=== PATIENT | female | born 1945 | race Caucasian/White ===

== ENCOUNTER → 2017-03-04 | Outpatient (CLI) | payer OTHER ==
[~2017-03-04] MED LIST: ALPR0.25 PO; ATEN-173 PO; ATOR-22 PO; CYAN100020 PO; ESTR1CRE PV; FEXO1TAB45 PO; GABA1CAP4 PO; HYDR25TA4 PO; LOSA1TAB PO; MAGN1TAB41 PO; MOVE FREE ULTRA PO; MULT-506 PO; NF656 TD; POLYSOL4 OP; POTA10TA PO; PSYL1.7W PO; SNG10 PO; SPIR25TA89 PO; SYN50 PO; VITAMIN B PO; VOLTAREN GEL TOP; WARF4TAB43 PO; [UNRECOGNIZED DRUG - OTHER] PO
--- NOTE | 2017-03-05 05:57 | PAP/PSG TECHNICIAN REPORT ---
[facility] Building Rental Superintendent Polysomnogram Report Study name: None Report date: 03/05/2017 Study date: 03/04/2017 Referring Physician: Juanita Umanzor M.D. Name: HARVINDER AAKASH Dewey Interpreting Physician: Keena Umanzor M.D. Date of : 1945 Building Rental Superintendent: Zahra Garcia, PSGT. Sex: Female Age: 71 StudyType: PSG Weight: 168 lbs Height: 71 years, Height 5' 2" Neck Circum:13.5 inches BMI: 30.72 Medications: See list of 25 medications listed in chart. Patient History 71YR. OLD FEMALE IN ROOM 7, PRESENTS TONIGHT FOR A DIAGNOSTIC SPLIT NIGHT STUDY. PT. STATES THAT SHE HAS PTSS. SHE WAS MALLED BY A DOG IN 2013 AND NOW HAS ALOT OF ANIEXTY WHEN SHE HAS TO GO TO BED, ALL SHE SEES IS A DOG ATTACKING HER. HER STATES THAT SHE SNORES AND SEE PAUSES IN BREATHING WHILE SLEEPING.ESS=3, NECK=13.5 INCHES. Parameters Monitored NPSG: E1-M2, E2-M1, Fp1-M2, Fp2-M1, F3-M2, F4-M2, F4-M1, C3-M2, C4-M2, C4-M1, O1-M2, O2-M2, O2-M1, T3-M2, T4-M1, P3-M2, P4-M1, CHIN1, CHIN2, HR, EKG, Legs, PFLOW, SNOR, FLOW, CFLOW, Tidal Volume, THOR, ABDO, SpO2, PLTH, CPRESS, ETCO2 Wave, ETCO2, pH Sleep Architecture Sleep Stages Time at Lights Off 10:42:24 PM STAGES Time (min.) TST (%) Time at Lights On 5:35:24 AM Wake 115.5 -- Total Recording Time (TRT) 414.00 min. N1 25.0 8 Total Sleep Period (TSP) 378.0 min. N2 238.0 80 Total Sleep Time (TST) 297.5min. N3 0.0 0 Awake Time 115.5 min. REM 34.5 12 Wake after Sleep Onset 80.5 min. Sleep Efficiency (SE) 72 % Sleep Onset Latency (SORIN) 35.0 min. Number of Stage 1 Shifts None Awakenings 11 Stage Changes 45 Number of REM periods 4 REM 34.5 12 REM Latency 125.0 min. NREM 263.0 88 Body Position Analysis Supine Right Left Side Prone Vertical Total Sleep Time (min.) 173.7 56.5 85.2 141.67 0.0 0.0 Total Sleep Time (%) 52% 19% 29% 48 0% N/A% Total Sleep Time REM (min.) 8.1 0.0 26.4 None 0.0 0.0 Total Sleep Time NREM (min.) 147.7 56.5 58.8 None 0.0 0.0 Intermittent Wake (min.) 17.8 93.0 4.6 None 0.0 0.0 Total Sleep Period (%) 46% None None None None None Arousals Myoclonus (PLM) * Events Count Index Events Count Index Spontaneous 53 11 Events Awake (PLMW) 1 0.5 Respiratory 33 6.7 Events Asleep w/ Arousal (PLMA) 61 12.3 PLM 61 12 Events Asleep w/o Arousal (PLMS) 312 62.9 Snoring 17 3 Total Asleep 373 75.2 Total 164 33 Total 374 54 Respiratory Analysis * CA OA MA CH H RERA Total Count 0 1 0 0 79 8 81 Index 0.0 0.2 0.0 0 15.9 2 17.9 Mean Duration 0.0 25.0 0.0 18.47 18.5 15.6 18.3 Longest Duration 0.0 25.0 0.0 18.47 0.0 23.9 51.0 Respiratory Event Summary Total Supine ~Supine Right Left Prone REM NREM Apneas Count 1 1 0 0 0 N/A 0 1 Index 0.2 0 0 0.0 0.0 N/A 0 0 Hypopneas (4% Desat) Count 79 52 27 14 13 N/A 13 66 Index 15.9 20.0 11 14.9 9.2 N/A 22.6 15.1 Apneas & All Hypopneas Count 81 53 28 15 13 N/A 13 68 Index 16.3 20 12 16 9 N/A 22.6 15.5 Respiratory Events ([place] Floor+All Hyp+RERA) Count 81 55 34 21 13 N/A 13 68 Index 17.9 21 14 22.3 9.2 N/A 22.6 17.3 Respiratory Related Arousal Count 33 55 10 4 6 N/A 6 27 Index 6.7 9 4 4 4 N/A 10 6 Snoring Analysis Supine Right Left Prone REM NREM Total Snore duration 15.9 min Snores count 279 165 124 N/A 77 491 568 Snore mean duration 1.7 Sec Snores index 107 175 87 N/A 133.9 112.0 114.6 TST with snoring (%) 5.4% SpO2 Analysis Total REM NREM Awake <50% 0.0 min. 0.0 min. 0.0 min. 0.0 min. 51 - 60% 0.0 min. 0.0 min. 0.0 min. 0.0 min. 61 - 70% 0.0 min. 0.0 min. 0.0 min. 0.0 min. 71 - 80% 0.0 min. 0.0 min. 0.0 min. 0.0 min. 81 - 90% 33.2 min. 8.2 min. 18.3 min. 6.7 min. 91 - 100% 372.4 min. 26.3 min. 244.7 min. 101.4 min. Average 93 92 92 94 Minimum SpO2 82 85 84 82 Desaturation Event Index 12.8 24.3 16.9 0.0 # Desat. Events below 89% 28 6 22 N/A Time(%) with Saturation below 89% 1.2 0.3 0.8 0.1 Time(min.) with Saturation below 89% 4.7 1.1 3.1 0.6 Heart Rate Analysis End Tidal CO2 Analysis Min (bpm) Max (bpm) Average (bpm) TSP (mins) % of TSP Awake 57 127 71 Above 55 mmHg 0.0 0.0 NREM 54 85 67 50-55 mmHg 0.0 0.0 REM 56 83 68 45-50 mmHg 75.7 25.4 Overall 54 85 67 40-45 mmHg 161.9 54.4 35-40 mmHg 38.1 12.8 30-35 mmHg 13.3 4.5 Average ETCO2 0.2 Supplemental O2 Values Minimum O2 level: None Value Start Time End Time Building Rental Superintendent Comments PSG Study Mrs. Trujillo slept in the right, left, and supine positions. No cardiac arrhythmia or PLM's noted. No bruxism noted. Snoring was noted and scored as a 2 on a scale of 1 through 5. (0=no snoring, 5=snoring loud enough to be heard through a closed door or down the [address] way) awoke to use the restroom one time during the night. Mrs. Trujillo stated, I did not sleep as well as I do when I am in my own bed. The final report will be interpreted and signed by a sleep physician. The completed physician report will then be placed in the patient medical record. Therapy (cm H2O) 0 TIB (min.) 413.0 TST (min.) 297.5 Sleep Onset (min.) 35.0 REM Onset From Sleep (min.) 125.0 Sleep Efficiency % 72 Wakefulness (%) 28 Wakefulness (min.) 115.5 NREM 1 (%) 8 NREM 1 (min.) 25.0 NREM 2 (%) 80 NREM 2 (min.) 238.0 NREM 3 (%) 0 NREM 3 (min.) 0.0 REM (%) 12 REM (min.) 34.5 # Arousals 164 Arousal Index 33 # Snore 568 Snore Index 114.6 AHI 16.3 AHI Supine 20 AHI Non-Supine 12 NREM AHI 15.5 REM AHI 22.6 RDI 17.9 # Obstructive Apnea 1 # Central Apnea 0 # Mixed Apnea 0 # Hypopneas 79 RERAs 8 Total Respiratory Events 90 Time Below SpO2 89% (min.) 4.2 Mean NREM SpO2 (%) 92 Mean REM SpO2 (%) 92 Mean Sleep SpO2 (%) 92 Min NREM SpO2 (%) 84 Min REM SpO2 (%) 85 Position Supine (min.) 173.7 Position Non-supine (min.) 141.7 LM Index Sleep 75.2 LM Index NREM 76.4 LM Index REM 66.1 Mean Heart Rate (bpm) 67 Min Heart Rate (bpm) 54
--- NOTE | 2017-03-30 16:37 | Sleep Study ---
Sleep Study Report Date of Service: 03/04/2017] Sleep Study Report Linette Blevins [birth year] [id number] Study Date: 03/04/17 Referring Physician: Jose Umanzor MD Interpreting Physician: Keena Umanzor MD Board Lining Machine Operator: Zahra Garcia, PSGT Polysomnogram Report Mrs. Vern Porter is a 71-year-old female who presents to the sleep lab for an overnight sleep study. She states that she has PTSD. She was mauled by a dog in 2013 and has a lot of anxiety when she has to go to bed at night. Her tells her that she snores and pauses in her breathing when she sleeps at night. Her [place] sleepiness scale score on the evening of this study is a 3 BMI is 30.72. This patient 's total sleep period time was 378 minutes. Total sleep time was 297.5 minutes. Sleep efficiency was 72%. Latency to sleep onset was 35 minutes with weak after sleep onset of 115.5 minutes. Total non-REM sleep time was 263 minutes. She spent 8% of that time in N1 sleep 80% in N2 and no time in N3 sleep. REM latency was 125 minutes. Total REM sleep time was 34.5 minutes or 12% of total sleep time. She had 164 arousals from sleep. 53 of these arousals were spontaneous 33 were due to respiratory events 61 with due to periodic limb movements of sleep and 17 were due to snoring. There were 373 leg movements noted on this test. Limb movement index was 75.2, limb movement with arousal index was 12.3. There were no central, 1 obstructive, and no mixed apneas on this test. There were 79 hypopnea and 8 RERA. Her AHI iindex was 16.3. Apnea-hypopnea index in supine sleep was 20, in REM sleep was 22.6. There were 568 snoring events recorded. Total sleep time with snoring was 5.4%. Mean saturation during sleep was 93% with desaturations to 82%. Saturations were less than 89% for 4.7 minutes of recorded time. There is no cardiac ectopy noted on this test. Heart rate during sleep branch from a low of 54 beats per minute to a high of 85 beats per minute. End-tidal CO2 was recorded on this test. End-tidal CO2 was between 45 and 50 mm of mercury for 25.4% of total sleep period time, between 45 and 45 mm Hg for 54.4% , between 35 and 40 mm of mercury for 12.8% and between 30 and 35 mm of mercury for 4.5% of total sleep period time. Impression and plan: 71-year-old female with evidence of moderately severe sleep apnea on a sleep study. 1. This patient would likely benefit from positive airway pressure therapy. She should return to sleep lab for full night titration and then based on those results be started on a equipment at home. 2. Alternatively, this patient could be started on an auto titrating CPAP at home in a download from her machine reviewed in 1 month as she can be set to optimal pressure at that time. 3. If this patient is unwilling or unable to tolerate CPAP therapy, she can be referred to ear nose and throat are oral surgery/ dental Medicine to discuss alternative treatments for sleep disordered breathing. Thank you Keena Umanzor MD
== END | disposition home or self-care (01) ==
LOC: C.NEUR 20:00
PROVIDERS: ATTEND Family Medicine
DX: R06.83 Snoring (principal); I47.2 Ventricular tachycardia; G47.30 Sleep apnea, unspecified

== ENCOUNTER → 2017-11-01 | Outpatient (CLI) | payer OTHER ==
[~2017-11-01] MED LIST changes: +GABA-1219 PO; -GABA1CAP4 PO
--- NOTE | 2017-11-01 14:55 | DIAGNOSTIC IMAGING REPORT ---
LOWER EXT JOINT WITHOUT CLINICAL HISTORY: RIGHT HIP PAIN pain TECHNIQUE: Multiaxial MRI acquisition COMPARISON STUDY: None FINDINGS: Signal characteristics the osseous structures are remarkable for mild to moderate degenerative changes of the articular services of both hips. There is moderate degenerative thinning of the articular services. There is mild age-related deterioration of the glenoid labrum although an acute labral tear is not appreciated. There is no significant joint effusion. All major muscular tendinous structures are intact. There may be a trace of trochanteric bursitis bilaterally. There is no evidence for avascular necrosis. IMPRESSION: 1. 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 2. Minimal trochanteric bursitis bilaterally. 3. No evidence for avascular necrosis 4. No significant additional abnormality is appreciated. The above report was generated using voice recognition software. It may contain grammatical, syntax or spelling errors. Electronically signed by: Vineet Franklin M.D. 11/01/2017 2:54 PM Dictated Date/Time: 11/01/2017 2:45 PM
== END | disposition home or self-care (01) ==
LOC: C.MRIBC 12:50
PROVIDERS: ATTEND Orthopaedic Surgery
DX: M25.551 Pain in right hip (principal); M16.0 Bilateral primary osteoarthritis of hip

== ENCOUNTER → 2017-11-12 | Outpatient (CLI) | payer OTHER ==
--- NOTE | 2017-11-12 13:39 | DIAGNOSTIC IMAGING REPORT ---
R INJ MAJOR JNT SHLDR,HIP,KNEE CLINICAL HISTORY: DJD RIGHT HIPpain COMPARISON STUDY: None FLUOROSCOPY TIME: 12 seconds. FINDINGS: Following informed consent and description of procedure, a 20-gauge needle was inserted to the right hip joint space. Test injection confirmed its intra-articular location. This is followed by administration of steroid mixture per physician request. There were no complications. IMPRESSION: Successful therapeutic right hip injection. No complications. The above report was generated using voice recognition software. It may contain grammatical, syntax or spelling errors. Electronically signed by: Vineet Franklin M.D. 11/12/2017 1:38 PM Dictated Date/Time: 11/12/2017 1:36 PM
== END | disposition home or self-care (01) ==
LOC: C.RADBC 12:46
PROVIDERS: ATTEND Orthopaedic Surgery
DX: M16.11 Unilateral primary osteoarthritis, right hip (principal)

== ENCOUNTER 2024-06-15 18:10 | Observation (INO) ==
[2024-06-15] MEDS: OPTIRAY 320 125ml IV ONE (18:30)
[2024-06-15 18:45] LABS: iSTAT Creatinine 1.2 mg/dl (0.6-1.3); iSTAT Ionized Calcium 1.14 mmol/l (1.12-1.32)
--- NOTE | 2024-06-15 18:48 | CT Scan Report ---
UNENHANCED CT OF THE BRAIN; CT ANGIOGRAM OF THE BRAIN; CT ANGIOGRAM OF THE NECK CLINICAL HISTORY: Strokelike symptoms. Neurological deficit. COMPARISON STUDY: CT of the brain dated 11/24/2023. TECHNIQUE: Unenhanced axial CT scan of the brain is performed. Subsequently, following the IV adminis tration of 119 of [address] [address], CT angiogram of the head and neck was performed from the aortic arch t o the vertex. Images are reviewed in the axial, sagittal, and coronal planes. 3-D MIPS images are cre ated and assessed. IV contrast was administered without complication. All measurements were calculate d based on NASCET criteria. A dose lowering technique was utilized adhering to the principles of ALA RA. CT DOSE: 1137.85 mGy.cm FINDINGS: Brain parenchyma: There is age-related involutional change noting mild subcortical and periventricula r microangiopathic disease. There is no hemorrhage, mass effect, or evidence of acute territorial isc hemia by CT criteria. There is no evidence of enhancing mass lesion on the angiogram phase images. Th e ventricles, sulci, and cisterns are prominent secondary to involutional change. Saldivar-white matter d ifferentiation is preserved. No extra-axial fluid collection is seen. Thoracic aorta: There is mild atherosclerotic calcification of the thoracic aorta. Visualized portion s of the thoracic aorta are normal in caliber. The aortic arch demonstrates standard 3-vessel anatomy . Right carotid arterial system: The right common carotid artery is widely patent, as are the right int ernal and external carotid arteries. Minimal calcified plaque is seen in the carotid bulb. Left carotid arterial system: The left common carotid artery is widely patent, as are the left internal medicine veterinary technician al and external carotid arteries. Minimal calcified plaque is seen in the carotid bulb. Vertebral arteries: Widely patent bilaterally and codominant. Subclavian arteries: Widely patent bilaterally. Intracranial vasculature: There is atherosclerotic calcification of the cavernous carotid arteries. T he internal carotid arteries are patent at the skull base, as are the anterior and middle cerebral ar teries bilaterally. The vertebrobasilar system and posterior cerebral arteries are widely patent. The vertebral arteries are codominant. There is no aneurysm, high-grade stenosis, or focal vessel cut of f seen throughout the intracranial circulation. Jugular veins: Patent bilaterally. Dural sinuses: Patent. Lung apices: Partially visualized upper lobe lung parenchyma appears clear. Soft tissues: The visualized pharyngeal soft tissues are normal in appearance noting angiographic pha se technique. The oropharyngeal airway appears widely patent. The salivary and thyroid glands are nor mal in appearance. No cervical lymphadenopathy is seen. Skeletal structures: The skeletal structures are osteopenic. The calvarium appears intact. The cervic al spine is maintained noting multilevel spondylosis. Orbits: The bony orbits are intact. Orbital contents are normal as visualized noting bilateral ocular lens implants. Sinuses and mastoids: There is trace mucosal thickening within the maxillary antra. The remaining par anasal sinuses are clear. The mastoid air cells are well pneumatized. Cerumen is noted in the right e xternal auditory canal. IMPRESSION: 1. There is no hemorrhage, mass effect, or evidence of acute territorial ischemia by CT criteria. 2. Unremarkable CT angiogram of the brain. 3. Unremarkable CT angiogram of the neck. ACT 112: Negative or not required by law. Electronically signed by: Homero Beckham M.D. 06/15/2024 6:45 PM
[2024-06-15] MEDS: ACETAMINOPHEN 1,000 MG/100 ML VIAL IV STA (18:52)
[2024-06-15] MEDS: LABETALOL HCL IV 5 MG/ML 20ML IV STA (18:53)
[2024-06-15] MEDS: ONDANSETRON INJ 2 MG/ML 2 ML VIAL IV STA (18:53)
--- NOTE | 2024-06-15 18:54 | Emergency Department Note ---
Impression & Plan TIA (transient ischemic attack), Headache ED Provider Note NAME: AAKASH BLANTON AGE: 79 SEX: F : 1945 ARRIVES VIA: Walk-In INFORMANT: Patient, ED PROVIDER(S): Brad Gamble DO CHIEF COMPLAINT: Strokelike symptoms HPI: The patient is an 79-year-old female who presented to the emergency department for strokelike symptoms. The patient was at home while she was on the phone. She thinks this could have been around 4 PM. She had an acute onset of not being able to speak. She states that she had a "aura "and thought her vision on the periphery on the right was abnormal. She states that she could not understand what her friend on the phone was saying and she was having trouble speaking and forming words. The patient denies having any numbness or weakness in the arms or legs. She states that the symptoms are still ongoing but improving. The patient was noted to have an occipital headache prior to arrival. She arrived via triage with family. ROS: See above HPI for pertinent positives & negatives. A total of 10 systems reviewed and were otherwise negative. PAST MEDICAL HISTORY: See Below PAST SURGICAL HISTORY: See Below FAMILY HISTORY: See Below SOCIAL HISTORY: See Below HOME MEDICATIONS: See Below ALLERGIES: See Below VITALS: See Below PHYSICAL EXAMINATION: GENERAL: The patient is awake and alert. She is somewhat anxious.. EYES: The conjunctivae are clear. The pupils are round and reactive. EARS, NOSE, MOUTH AND THROAT: The nose is without any evidence of any deformity. Mucous membranes are moist. Tongue is midline. NECK: The neck is nontender and supple. RESPIRATORY: Normal respiratory effort is noted there is no evidence of wheezing rhonchi or rales CARDIOVASCULAR: Regular rate and rhythm noted there no murmurs rubs or gallops normal S1 normal S2. GASTROINTESTINAL: The abdomen is soft. Abdomen is nontender. MUSCULOSKELETAL/EXTREMITIES: There is no evidence of gross deformity full range of motion is noted in the hips and shoulders. SKIN: There is no obvious evidence of any rash. There are no petechiae, pallor or cyanosis noted. NEUROLOGIC: Patient is awake alert and oriented x3. Speech is clear. There is no facial droop. There is no drift in the upper extremities. The patient is able to hold each leg off the bed for greater than 5 seconds. MEDICAL DECISION MAKING: The patient is an 79-year-old female who presented to the emergency department for an evaluation of strokelike symptoms. The patient had an acute onset of difficulty speaking as well as difficulty understanding while she was on the phone with a friend. The patient does take Coumadin. A stroke alert was called from triage. The patient was inside the window for TNK but she had been receiving Lovenox as a bridge while she was off her Coumadin for short period of time. Ultimately she was also not felt to be a candidate for TNK as her NIH score was 0 and her symptoms had almost completely resolved. The patient significant other felt that she was still having some difficulty. I discussed the patient's condition with her. Given the symptoms that she was having I do feel this is a high risk TIA. For this reason I discussed her condition with the on-call [facility] hospitalist. Triage Nursing notes reviewed. Prior medical records reviewed Vital Signs: reviewed and remarkable for no significant abnormalities Differential diagnosis: Infection, dehydration, metabolic abnormality, hypo/hyperglycemia, electrolyte disturbance, anemia, hypoxia, cardiac sources, intracerebral event, toxicologic, neurologic, as well as other pathologies. ER treatment provided: See below Diagnostics interpreted by me: ECG: EKG was obtained in the emergency department. My interpretation is normal sinus rhythm at 63 bpm. There is no ectopy. There is no acute ST segment abnormalities noted. Cardiac Monitoring: An order was placed for continuous cardiac monitoring. The monitor shows a rate of 75 bpm with sinus rhythm. Laboratory studies: As stated above and show below. Imaging studies: See below. Radiographic imaging was reviewed by myself Consultation(s): I discussed this case with Dr Velasquez who was companion caregiver for telestroke. After his evaluation he feels the patient is not a candidate for TNK. He recommends resuming the patient's Lovenox for her history. He also recommends to try to keep the blood pressure less than 160 systolic. I discussed this case with Dr. Amor who is on for the [facility]ist group. ED COURSE: Procedures: none Critical Care: I have personally spent greater than 45 minutes of critical care time in the direct management of this patient. This includes bedside care, interpretation of diagnostic studies, and testing, discussion with consultants, patient, and family members, and other required patient management activities. This 45 minutes is in excess of all separately billable procedures. Past Med/Surg History Problem List (Updated 06/15/24 @ 21:26 by Brad Gamble DO) Headache (Acute) TIA (transient ischemic attack) (Acute) Stroke-like symptom Malignant neoplasm of upper-outer quadrant of left breast in female, estrogen receptor positive (Chronic 07/10/21) Medical History Vaginitis Chronic TMJ (temporomandibular joint disorder) Obstructive sleep apnea Wears CPAP HS CKD (chronic kidney disease), stage III Generalized anxiety disorder GERD (gastroesophageal reflux disease) Migraine "has not had one in years" Syncope 1 episode - none since Pyelonephritis Resolved Hypertension Hypercholesteremia Mitral valve prolapse Factor V Leiden Hypothyroid Pulmonary embolism (11/2011) Surgical History History of hysterectomy (1978) History of ankle surgery 2014 + 2016 (repaired tendon tears) History of cataract removal with insertion of prosthetic lens History of lumpectomy of left breast (08/20/21) Dr. Roxi Platt - invasive ductal carcinoma, ER/NC+, HER2- History of left breast biopsy (07/10/21) Dr. Roxi Platt - invasive ductal carcinoma, ER/NC+, HER2- Family History Father , Passed age 78 of Black Lung (smoker) No problems noted. Mother , Passed age 90 of natural causes No problems noted. Sister , Passed age 90 natural causes No problems noted. Brother , Passed age 62 of heart complications No problems noted. Brother , Passed late 80's of Aneurysm Mesothelioma, Onset Age: 70 Brother , Passed in 80's of Colon Cancer No problems noted. Brother Pancreatic cancer, Onset Age: 84 Currently undergoing treatment in [place] Daughter No problems noted. Daughter No problems noted. 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 Feels Safe at Home: Yes Childhood Exposure to Second-Hand Smoke: No Diet: low carbohydrate and regular Diet Comment: low sugar caffeine: No during the past year weight has: remained stable Dental Care, Regularly: Yes Allergies Allergies Allergy/AdvReac Type Severity Reaction Status Date / Time hydrocodone Allergy Severe HIVES Verified 06/15/24 21:05 Sulfa (Sulfonamide Allergy Severe HIVES/VOMIT Verified 06/15/24 21:05 Antibiotics) ING esomeprazole Allergy Intermediate HEADACHES Verified 06/15/24 21:05 metronidazole Allergy Unknown unk Verified 06/15/24 21:05 moxifloxacin Allergy Unknown UNKNOWN Verified 06/15/24 21:05 nitrofurantoin Allergy Unknown HIVES Verified 06/15/24 21:05 phenylpropanolamine Allergy Unknown unknown Verified 06/15/24 21:05 terazosin Allergy Unknown HIVES Verified 06/15/24 21:05 scopolamine AdvReac Intermediate DEHYDRATION Verified 06/15/24 21:05 ciprofloxacin AdvReac Unknown Tendon Verified 06/15/24 21:05 Tears hydromorphone [From Dilaudid] AdvReac Vomiting Verified 06/15/24 21:05 EXGEST Allergy Intermediate PALPITATION Uncoded 06/15/24 21:05 S mckenzie Allergy Intermediate Hives Uncoded 06/15/24 21:05 Home Meds Home Medications Medication Instructions Recorded Confirmed Atenolol (Tenormin) 25 mg PO QAM ##0 03/05/08 11/12/23 Multivitamin 1 tab PO NOON ##0 03/05/08 11/12/23 Montelukast (Singulair *) 10 mg PO QPM ##0 12/09/11 11/12/23 SPIRONOLACTONE (ALDACTONE) 25 mg PO QAM #0 tabs 11/23/13 11/12/23 CYANOCOBALAMIN (VITAMIN B12) 1,000 mcg PO NOON ##0 06/05/15 11/12/23 [Vitamin B 6 200 mg PO QAM ##0 06/05/15 11/12/23 POLYETHYLENE GLYCOL-PROPYLENE 1 drp ophthalmic (eye) QID PRN #30 10/01/21 11/12/23 (SYSTANE) mL WARFARIN SODIUM 2 mg PO UD ##0 10/01/21 11/12/23 citalopram 10 mg tablet (Celexa) 10 mg PO DAILY 10/01/21 11/12/23 ezetimibe 10 mg tablet (Zetia) 10 mg PO DAILY 10/01/21 11/12/23 fluticasone propionate 50 2 spray intranasal DAILY 10/01/21 11/12/23 mcg/actuation nasal spray,suspension (Flonase Allergy Relief) latanoprost 0.005 % eye drops 1 drp ophthalmic (eye) DAILY 10/01/21 11/12/23 loratadine 10 mg tablet (Allergy 10 mg PO DAILY 10/01/21 11/12/23 Relief (loratadine)) carbamide peroxide 6.5 % ear drops 5 drp otic (ear) DAILY PRN 03/20/22 11/12/23 (Debrox) magnesium 200 mg tablet 400 mg PO DAILY 03/20/22 11/12/23 potassium chloride 10 mEq 10 meq PO DAILY 03/20/22 11/12/23 tablet,extended release (Klor-Con) biotin 10,000 mcg capsule 5,000 mcg PO DAILY 10/23/22 11/12/23 nvmwkjf-hxlrjrfnk-nzxw tablet 1 tab PO DAILY 10/23/22 11/12/23 cholecalciferol (vitamin D3) 125 125 mcg PO DAILY 10/23/22 11/12/23 mcg (5,000 unit) capsule fluocinolone acetonide oil 0.01 % 4 drp otic (ear) BID PRN 10/23/22 11/12/23 ear drops folic acid 800 mcg tablet 0.8 mg PO DAILY 10/23/22 11/12/23 levothyroxine 50 mcg tablet 50 mcg PO DAILY 10/23/22 11/12/23 (Levoxyl) mirabegron 25 mg tablet,extended 25 mg PO DAILY 10/23/22 11/12/23 release 24 hr (Myrbetriq) pantoprazole 20 mg tablet,delayed 40 mg PO DAILY 10/23/22 11/12/23 release pramipexole 0.5 mg tablet 0.5 mg PO DAILY 10/23/22 11/12/23 psyllium husk 3.4 gram/5.4 gram 1 tbsp PO DAILY 10/23/22 11/12/23 oral powder (Metamucil) torsemide 20 mg tablet 20 mg PO DAILY 10/23/22 11/12/23 duloxetine 30 mg capsule,delayed 30 mg PO DAILY 11/12/23 11/12/23 release (Cymbalta) Results & Data (ED) Vital Signs Vital Signs - 24 hr 06/15/24 18:12 06/15/24 18:19 06/15/24 18:45 Temperature 36.5 C Temperature Source Temporal Artery Scan Pulse Rate 77 Pulse Rate [Apical] 79 Pulse Rate from SpO2 Sensor Respiratory Rate 18 20 Respiratory Effort / Characteristics Non-Labored Spontaneous Non-Labored Respiratory Depth Normal Normal Blood Pressure 210/100 H Blood Pressure [Left Arm] 192/94 H Blood Pressure Mean 136 Blood Pressure Mean [Left Arm] 126 Blood Pressure Position Sitting Pulse Oximetry 97 98 98 Oxygen Delivery Method Room Air Room Air Room Air Sepsis Recent Fever Within 48 Hours No Sepsis New/Unexplained Change in Mental Status No Sepsis Action Taken by Nursing No Action Required 06/15/24 18:51 06/15/24 18:53 06/15/24 19:00 Temperature Temperature Source Pulse Rate 76 75 90 Pulse Rate [Apical] Pulse Rate from SpO2 Sensor Respiratory Rate 17 Respiratory Effort / Characteristics Respiratory Depth Blood Pressure 192/94 H 168/89 H Blood Pressure [Left Arm] Blood Pressure Mean 115 Blood Pressure Mean [Left Arm] Blood Pressure Position Pulse Oximetry Oxygen Delivery Method Sepsis Recent Fever Within 48 Hours Sepsis New/Unexplained Change in Mental Status Sepsis Action Taken by Nursing 06/15/24 20:12 Temperature Temperature Source Pulse Rate 75 Pulse Rate [Apical] Pulse Rate from SpO2 Sensor 75 Respiratory Rate 19 Respiratory Effort / Characteristics Respiratory Depth Blood Pressure 119/69 Blood Pressure [Left Arm] Blood Pressure Mean 85 Blood Pressure Mean [Left Arm] Blood Pressure Position Pulse Oximetry 97 Oxygen Delivery Method Sepsis Recent Fever Within 48 Hours Sepsis New/Unexplained Change in Mental Status Sepsis Action Taken by [facility] Medications Current Medication List: was personally reviewed by me Laboratory Data Attestation: I reviewed the patient's lab results. 06/15/24 18:28 06/15/24 18:28 Lab Results 06/15/24 06/15/24 06/15/24 Range/Units 18:28 18:33 18:40 WBC 9.88 (4.8-10.8) K/ul RBC 5.05 (4.20-5.40) M/uL Hgb 14.1 (12.0-16.0) g/dl POC Hgb 15.0 (12.0-16.0) g/dl Hct 43.7 (37.0-47.0) % POC Hct 44 (37-47) % MCV 86.5 (80.0-100.0) fL MCH 27.9 (25.0-34.0) pg MCHC 32.3 (32.0-36.0) g/dL RDW Std Deviation 45.1 (36.4-46.3) fL RDW Coeff of Asher 14.4 (11.5-14.5) % Plt Count 264 (130-400) K/uL MPV 9.9 (9.4-12.4) fL Immature Gran % (Auto) 0.9 % Neut % (Auto) 62.7 % Lymph % (Auto) 24.6 % Mcdonough % (Auto) 9.4 % Eos % (Auto) 1.9 % Baso % (Auto) 0.5 % Neut # (Auto) 6.19 (1.40-6.50) K/uL Lymph # (Auto) 2.43 (1.20-3.40) K/uL Mcdonough # (Auto) 0.93 H (0.11-0.59) K/uL Eos # (Auto) 0.19 (0.00-0.50) K/uL Baso # (Auto) 0.05 (0.00-0.20) K/uL Immature Gran # (Auto) 0.09 (0.01-0.20) K/uL PT 14.5 H (9.0-12.0) Seconds INR 1.4 H (0.9-1.1) APTT 28 (21-31) Seconds PTT Ratio 1.0 POC Sodium 137 (135-144) mmol/L Sodium 137 (136-145) mmol/L POC Potassium 4.0 (3.3-5.0) mmol/L Potassium 4.1 (3.5-5.1) mmol/L POC Chloride 99 L (101-112) mmol/L Chloride 99 (98-107) mmol/L Carbon Dioxide 30 (21-32) mmol/L POC Total CO2 28 (24-31) mmol/L Anion Gap 8 (3-11) POC Anion Gap 15.0 L (16-25) mmol/L POC BUN 20 H (7-18) mg/dl BUN 21 (6-23) mg/dl Creatinine 1.08 (0.6-1.2) mg/dl POC Creatinine 1.2 (0.6-1.3) mg/dl Est Cr Clr Drug Dosing 45.7 ml/min Est GFR ( Amer) 56.1 ml/min Est GFR (Non-Af Amer) 48.4 ml/min BUN/Creatinine Ratio 19.4 (10-20) Glucose 124 H (70-99(Fasting)) mg/dl POC Glucose 124 H (70-99) mg/dl POC Glucose (other) 125 H (70-99) mg/dl Calcium 9.3 (8.6-10.3) mg/dl POC Ioniz Calcium Michael 1.14 (1.12-1.32) mmol/l Magnesium 2.4 (1.7-2.4) mg/dl Total Bilirubin 0.5 (0.2-1.0) mg/dl AST 31 (13-39) U/L ALT 37 (7-52) U/L Alkaline Phosphatase 64 (34-104) U/L Troponin I High Sens 6.8 (0-14) pg/ml Total Protein 7.0 (6.0-8.3) gm/dl Albumin 4.3 (3.4-5.0) gm/dl Globulin 2.7 (2.5-4.0) gm/dl Albumin/Globulin Ratio 1.6 (0.9-2) Administered Medications Discontinued Medications Acetaminophen (Ofirmev) 1,000 mg in 100 mls @ 400 mls/hr IV NOW STA Stop: 06/15/24 19:01 Last Admin: 06/15/24 18:52 Dose: 400 mls/hr Documented By: RUPERTO Ioversol (Optiray 320 125ml) 119 ml IV ONCE ONE Stop: 06/15/24 18:28 Last Admin: 06/15/24 18:30 Dose: 119 ml Documented By: BHUPINDER Labetalol HCl (Labetalol Hcl Iv 5 Mg/Ml 20ml) 10 mg IV NOW STA Stop: 06/15/24 18:48 Last Admin: 06/15/24 18:53 Dose: 10 mg Documented By: RUPERTO Ondansetron HCl (Ondansetron Inj 2 Mg/Ml 2 Ml Vial) 4 mg IV NOW STA Stop: 06/15/24 18:48 Last Admin: 06/15/24 18:53 Dose: 4 mg Documented By: RUPERTO Imaging Data Attestation: I personally reviewed and interpreted this imaging study as follows: My Impression: CT the brain was obtained in the emergency department. My interpretation is no intracranial hemorrhage or mass effect, final report below. 1 view chest x-ray was obtained in the emergency department. My interpretation was no free air or definite infiltrate, final report below. Radiologist's Impression: Head CT 06/15/24 18:[address] OF THE BRAIN; CT ANGIOGRAM OF THE BRAIN; CT ANGIOGRAM OF THE NECK CLINICAL HISTORY: Strokelike symptoms. Neurological deficit. COMPARISON STUDY: CT of the brain dated 11/24/2023. TECHNIQUE: Unenhanced axial CT scan of the brain is performed. Subsequently, following the IV administration of 119 of Optiray 320, CT angiogram of the head and neck was performed from the aortic arch to the vertex. Images are reviewed in the axial, sagittal, and coronal planes. 3-D MIPS images are created and assessed. IV contrast was administered without complication. All measurements were calculated based on NASCET criteria. A dose lowering technique was utilized adhering to the principles of ALARA. CT DOSE: 1137.85 mGy.cm FINDINGS: Brain parenchyma: There is age-related involutional change noting mild subcortical and periventricular microangiopathic disease. There is no hemorrhage, mass effect, or evidence of acute territorial ischemia by CT criteria. There is no evidence of enhancing mass lesion on the angiogram phase images. The ventricles, sulci, and cisterns are prominent secondary to involutional change. Saldivar-white matter differentiation is preserved. No extra- axial fluid collection is seen. Thoracic aorta: There is mild atherosclerotic calcification of the thoracic aorta. Visualized portions of the thoracic aorta are normal in caliber. The aortic arch demonstrates standard 3-vessel anatomy. Right carotid arterial system: The right common carotid artery is widely patent, as are the right internal and external carotid arteries. Minimal calcified plaque is seen in the carotid bulb. Left carotid arterial system: The left common carotid artery is widely patent, as are the left internal and external carotid arteries. Minimal calcified plaque is seen in the carotid bulb. Vertebral arteries: Widely patent bilaterally and codominant. Subclavian arteries: Widely patent bilaterally. Intracranial vasculature: There is atherosclerotic calcification of the cavernous carotid arteries. The internal carotid arteries are patent at the skull base, as are the anterior and middle cerebral arteries bilaterally. The vertebrobasilar system and posterior cerebral arteries are widely patent. The vertebral arteries are codominant. There is no aneurysm, high-grade stenosis, or focal vessel cut off seen throughout the intracranial circulation. Jugular veins: Patent bilaterally. Dural sinuses: Patent. Lung apices: Partially visualized upper lobe lung parenchyma appears clear. Soft tissues: The visualized pharyngeal soft tissues are normal in appearance noting angiographic phase technique. The oropharyngeal airway appears widely patent. The salivary and thyroid glands are normal in appearance. No cervical lymphadenopathy is seen. Skeletal structures: The skeletal structures are osteopenic. The calvarium appears intact. The cervical spine is maintained noting multilevel spondylosis. Orbits: The bony orbits are intact. Orbital contents are normal as visualized noting bilateral ocular lens implants. Sinuses and mastoids: There is trace mucosal thickening within the maxillary antra. The remaining paranasal sinuses are clear. The mastoid air cells are well pneumatized. Cerumen is noted in the right external auditory canal. IMPRESSION: 1. There is no hemorrhage, mass effect, or evidence of acute territorial ischemia by CT criteria. 2. Unremarkable CT angiogram of the brain. 3. Unremarkable CT angiogram of the neck. ACT 112: Negative or not required by law. Electronically signed by: Homero Beckham M.D. 06/15/2024 6:45 PM Head CTA 06/15/24 18:[address] OF THE BRAIN; CT ANGIOGRAM OF THE BRAIN; CT ANGIOGRAM OF THE NECK CLINICAL HISTORY: Strokelike symptoms. Neurological deficit. COMPARISON STUDY: CT of the brain dated 11/24/2023. TECHNIQUE: Unenhanced axial CT scan of the brain is performed. Subsequently, following the IV administration of 119 of Optiray 320, CT angiogram of the head and neck was performed from the aortic arch to the vertex. Images are reviewed in the axial, sagittal, and coronal planes. 3-D MIPS images are created and assessed. IV contrast was administered without complication. All measurements were calculated based on NASCET criteria. A dose lowering technique was utilized adhering to the principles of ALARA. CT DOSE: 1137.85 mGy.cm FINDINGS: Brain parenchyma: There is age-related involutional change noting mild subcortical and periventricular microangiopathic disease. There is no hemorrhage, mass effect, or evidence of acute territorial ischemia by CT criteria. There is no evidence of enhancing mass lesion on the angiogram phase images. The ventricles, sulci, and cisterns are prominent secondary to involutional change. Saldivar-white matter differentiation is preserved. No extra- axial fluid collection is seen. Thoracic aorta: There is mild atherosclerotic calcification of the thoracic aorta. Visualized portions of the thoracic aorta are normal in caliber. The aortic arch demonstrates standard 3-vessel anatomy. Right carotid arterial system: The right common carotid artery is widely patent, as are the right internal and external carotid arteries. Minimal calcified plaque is seen in the carotid bulb. Left carotid arterial system: The left common carotid artery is widely patent, as are the left internal and external carotid arteries. Minimal calcified plaque is seen in the carotid bulb. Vertebral arteries: Widely patent bilaterally and codominant. Subclavian arteries: Widely patent bilaterally. Intracranial vasculature: There is atherosclerotic calcification of the cavernous carotid arteries. The internal carotid arteries are patent at the skull base, as are the anterior and middle cerebral arteries bilaterally. The vertebrobasilar system and posterior cerebral arteries are widely patent. The vertebral arteries are codominant. There is no aneurysm, high-grade stenosis, or focal vessel cut off seen throughout the intracranial circulation. Jugular veins: Patent bilaterally. Dural sinuses: Patent. Lung apices: Partially visualized upper lobe lung parenchyma appears clear. Soft tissues: The visualized pharyngeal soft tissues are normal in appearance noting angiographic phase technique. The oropharyngeal airway appears widely patent. The salivary and thyroid glands are normal in appearance. No cervical lymphadenopathy is seen. Skeletal structures: The skeletal structures are osteopenic. The calvarium appears intact. The cervical spine is maintained noting multilevel spondylosis. Orbits: The bony orbits are intact. Orbital contents are normal as visualized noting bilateral ocular lens implants. Sinuses and mastoids: There is trace mucosal thickening within the maxillary antra. The remaining paranasal sinuses are clear. The mastoid air cells are well pneumatized. Cerumen is noted in the right external auditory canal. IMPRESSION: 1. There is no hemorrhage, mass effect, or evidence of acute territorial ischemia by CT criteria. 2. Unremarkable CT angiogram of the brain. 3. Unremarkable CT angiogram of the neck. ACT 112: Negative or not required by law. Electronically signed by: Homero Beckham M.D. 06/15/2024 6:45 PM Neck CTA 06/15/24 18:[address] OF THE BRAIN; CT ANGIOGRAM OF THE BRAIN; CT ANGIOGRAM OF THE NECK CLINICAL HISTORY: Strokelike symptoms. Neurological deficit. COMPARISON STUDY: CT of the brain dated 11/24/2023. TECHNIQUE: Unenhanced axial CT scan of the brain is performed. Subsequently, following the IV administration of 119 of Optiray 320, CT angiogram of the head and neck was performed from the aortic arch to the vertex. Images are reviewed in the axial, sagittal, and coronal planes. 3-D MIPS images are created and assessed. IV contrast was administered without complication. All measurements were calculated based on NASCET criteria. A dose lowering technique was utilized adhering to the principles of ALARA. CT DOSE: 1137.85 mGy.cm FINDINGS: Brain parenchyma: There is age-related involutional change noting mild subcortical and periventricular microangiopathic disease. There is no hemorrhage, mass effect, or evidence of acute territorial ischemia by CT criteria. There is no evidence of enhancing mass lesion on the angiogram phase images. The ventricles, sulci, and cisterns are prominent secondary to involutional change. Saldivar-white matter differentiation is preserved. No extra- axial fluid collection is seen. Thoracic aorta: There is mild atherosclerotic calcification of the thoracic aorta. Visualized portions of the thoracic aorta are normal in caliber. The aortic arch demonstrates standard 3-vessel anatomy. Right carotid arterial system: The right common carotid artery is widely patent, as are the right internal and external carotid arteries. Minimal calcified plaque is seen in the carotid bulb. Left carotid arterial system: The left common carotid artery is widely patent, as are the left internal and external carotid arteries. Minimal calcified plaque is seen in the carotid bulb. Vertebral arteries: Widely patent bilaterally and codominant. Subclavian arteries: Widely patent bilaterally. Intracranial vasculature: There is atherosclerotic calcification of the cavernous carotid arteries. The internal carotid arteries are patent at the skull base, as are the anterior and middle cerebral arteries bilaterally. The vertebrobasilar system and posterior cerebral arteries are widely patent. The vertebral arteries are codominant. There is no aneurysm, high-grade stenosis, or focal vessel cut off seen throughout the intracranial circulation. Jugular veins: Patent bilaterally. Dural sinuses: Patent. Lung apices: Partially visualized upper lobe lung parenchyma appears clear. Soft tissues: The visualized pharyngeal soft tissues are normal in appearance noting angiographic phase technique. The oropharyngeal airway appears widely patent. The salivary and thyroid glands are normal in appearance. No cervical lymphadenopathy is seen. Skeletal structures: The skeletal structures are osteopenic. The calvarium appears intact. The cervical spine is maintained noting multilevel spondylosis. Orbits: The bony orbits are intact. Orbital contents are normal as visualized noting bilateral ocular lens implants. Sinuses and mastoids: There is trace mucosal thickening within the maxillary antra. The remaining paranasal sinuses are clear. The mastoid air cells are well pneumatized. Cerumen is noted in the right external auditory canal. IMPRESSION: 1. There is no hemorrhage, mass effect, or evidence of acute territorial ischemia by CT criteria. 2. Unremarkable CT angiogram of the brain. 3. Unremarkable CT angiogram of the neck. ACT 112: Negative or not required by law. Electronically signed by: Homero Beckham M.D. 06/15/2024 6:45 PM Discharge Plan Visit Data Chief Complaint: TIA Symptoms Stated Complaint: POSSIBLE STROKE, SPEECH PROBLEM, EYE AURA ED Provider: Brad Gamble Discharge Problem: TIA (transient ischemic attack), Headache Patient Disposition: Being Evaluated by Hospitalist Forms Stand Alone Forms: [facility] Prescriptions Prescriptions: No Action Debrox 6.5 % drops 5 drp otic (ear) DAILY PRN potassium chloride [Klor-Con 10] 10 mEq tablet extended release 10 meq PO DAILY magnesium 200 mg tablet 400 mg PO DAILY fluocinolone acetonide oil 0.01 % drops 4 drp otic (ear) BID PRN duloxetine [Cymbalta] 30 mg capsule,delayed release(DR/EC) 30 mg PO DAILY latanoprost 0.005 % drops 1 drp ophthalmic (eye) DAILY loratadine [Allergy Relief (loratadine)] 10 mg tablet 10 mg PO DAILY ezetimibe [Zetia] 10 mg tablet 10 mg PO DAILY citalopram [Celexa] 10 mg tablet 10 mg PO DAILY fluticasone propionate [Flonase Allergy Relief] 50 mcg/actuation spray,suspension 2 spray intranasal DAILY Rx Instructions: administer into each nostril pantoprazole 20 mg tablet,delayed release (DR/EC) 40 mg PO DAILY torsemide 20 mg tablet 20 mg PO DAILY levothyroxine [Levoxyl] 50 mcg tablet 50 mcg PO DAILY pramipexole 0.5 mg tablet 0.5 mg PO DAILY biotin 10,000 mcg capsule 5,000 mcg PO DAILY cholecalciferol (vitamin D3) 125 mcg (5,000 unit) capsule 125 mcg PO DAILY Metamucil 3.4 gram/5.4 gram powder 1 tbsp PO DAILY Rx Instructions: mix into at least 8 oz of water or juice before administering folic acid 800 mcg tablet 0.8 mg PO DAILY [id number] Tablet 1 tab PO DAILY Myrbetriq 25 mg tablet extended release 24 hr 25 mg PO DAILY Atenolol (Tenormin) 25 MG tablet 25 mg PO QAM Qty: 0 Multivitamin tablet 1 tab PO NOON Qty: 0 Patient Comments: hair and nails formula Montelukast (Singulair *) 10 MG tablet 10 mg PO QPM Qty: 0 SPIRONOLACTONE (ALDACTONE) 25 MG tablet 25 mg PO QAM Qty: 0 CYANOCOBALAMIN (VITAMIN B12) 1,000 MCG tablet 1,000 mcg PO NOON Qty: 0 [Vitamin B 6 200 mg PO QAM Qty: 0 POLYETHYLENE GLYCOL-PROPYLENE (SYSTANE) 1 SORIN SOLTAB 1 drp ophthalmic (eye) QID PRNQty: 30 WARFARIN SODIUM 2 MG tablet 2 mg PO UD Qty: 0 Rx Instructions: DIRECTED BY [facility] Referrals Referrals: Yoav Kong MD [Primary Care Provider] - Discharge Problem: Headache Qualifiers: Headache type: unspecified Headache chronicity pattern: unspecified pattern I ntractability: not intractable Qualified Code(s): R51.9 - Headache, unspecified
[2024-06-15 18:55] LABS: Basophils # (auto) 0.05 K/uL (0.00-0.20); Basophils % (auto) 0.5 %; Eosinophils # (auto) 0.19 K/uL (0.00-0.50); Eosinophils % (auto) 1.9 %; Hematocrit (blood only) 43.7 % (37.0-47.0); Hemoglobin 14.1 g/dl (12.0-16.0); Immature Granulocytes # (auto) 0.09 K/uL (0.01-0.20); Immature Granulocytes % (auto) 0.9 %; Lymphocytes # (auto) 2.43 K/uL (1.20-3.40); Lymphocytes % (auto) 24.6 %; Mean Corpuscular Hemoglobin 27.9 pg (25.0-34.0); Mean Corpuscular Hgb Conc 32.3 g/dL (32.0-36.0); Mean Corpuscular Volume 86.5 fL (80.0-100.0); Mean Platelet Volume 9.9 fL (9.4-12.4); Monocytes # (auto) 0.93 K/uL (0.11-0.59); Monocytes % (auto) 9.4 %; Neutrophils # (auto) 6.19 K/uL (1.40-6.50); Neutrophils % (auto) 62.7 %; Platelet Count 264 K/uL (130-400); RDW Coefficient of Variation 14.4 % (11.5-14.5); RDW Standard Deviation 45.1 fL (36.4-46.3); Red Blood Count 5.05 M/uL (4.20-5.40); White Blood Count 9.88 K/ul (4.8-10.8)
[2024-06-15 19:15] LABS: Albumin Globulin Ratio 1.6 (0.9-2); Albumin Level 4.3 gm/dl (3.4-5.0); BUN Creatinine Ratio 19.4 (10-20); Bilirubin,Total 0.5 mg/dl (0.2-1.0); Calcium 9.3 mg/dl (8.6-10.3); Creatinine Clr Calc Pharmacy 45.7 ml/min; Est GFR (African American) 56.1 ml/min; Est GFR (Non-African American) 48.4 ml/min; Globulin 2.7 gm/dl (2.5-4.0); Magnesium 2.4 mg/dl (1.7-2.4); Potassium 4.1 mmol/L (3.5-5.1)
[2024-06-15 19:21] LABS: Troponin I High Sensitivity 6.8 pg/ml (0-14)
[2024-06-15 19:23] LABS: INR 1.4 (0.9-1.1); Partial Thromboplastin Time 28 Seconds (21-31); Prothrombin Time 14.5 Seconds (9.0-12.0)
--- NOTE | 2024-06-15 20:19 | History & Physical Report ---
Date of Service June 15, 2024 Assessment & Plan (1) Stroke-like symptom: (2) Pulmonary embolism: (3) GERD (gastroesophageal reflux disease): (4) CKD (chronic kidney disease), stage III: Plan: TIA - Admit to tele for observation - Stroke order set completed, - Initially dysarthria, garbled speech, Left eye visual deficit, no indication for thrombolytic with sx completely resolved at this time - CTA head reviewed and is negative for acute findings - MRI brain wo contrast - Will allow permissive hypertension with SBP 140-170 - PT/OT consults - Coumadin ordered - INR is subtherapeutic at 1.4. Lovenox bridging was from 06/09 until 06/13. Home coumadin dosing of 4 mg on Wednesday and 3 mg all other days - Repatha inj 140 mg given at home today (q14), continue zetia - check lipid panel and a1c with am labs Hx of PE/DVT Factor V Leiden - chronic anticoagulation with coumadin - Follow daily INR, 1.4, will require bridge with lovenox HTN - BP as above - Follows with cardiology as outpt HLD - Repatha 140 mg [id number], zetia 10 mg daily Hypothyroidism - Cont levothyroxine - TSH 2.01 on 04/17/24 per [facility] outpatient Chronic lower back pain - s/p intralaminal steroid injection on 06/09/[address] Carlton at [facility] outpt OR, pain management. Pt notes pain at injection site rated 6/10 today. Monitor. - PT/OT CKD stage III - Cr/BUN appear to be at baseline, follow am labs Remote Hx of Breast Cancer - stable, in remission - original dx 2020 DVT ppx: teds, scds, coumadin, lovenox bridge Lines: PIV x 1 Diet: HH CODE: FULL Dispo: From home, likely to remain in the hospital x 1-2 days Walker see attending addendum for further recommendations pending his discussion with ER/neuro for further recommendations A total of 75 minutes were spent with greater than 50% of that time face to face with the patient, personally reviewing all current laboratories, imaging studies, past medication reconciliation, outpatient chart review, and discussion with specialists to collaborate care for the patient with attending. Please see attending documentation for corrections and/or additions. History of Present Illness Chief Complaint: Dysarthria Primary Care Provider: Yoav Kong MD This is a 89-year-old female with PMHx of history of breast cancer in 2020, factor V Leiden, pulmonary embolism, on chronic anticoagulant therapy, HTN, HLD, mitral valve prolapse, GERD, hypothyroidism, BIANCA, CKD stage III, chronic back pain status post recent interlaminar epidural steroid injection 06/09/2024 who presents to the hospital with difficulty speaking, had trouble articulating words around 4 PM this afternoon. Her family , and two daughters are present at bedside. Patient states that she was in her normal state of health at 3 PM when her went to take a nap. She proceeded to make a batch of apple crisp and walk on cooking dinner, at the time referred in the oven, sat down went to sleep for approximately 20 minutes and then woke up to the time or going off. At that point a friend of hers called her on the phone and she was unable to articulate/participate in conversation. Her daughter came home at 5:10 PM and noticed that she was unable to participate in conversation, garbled words and left eye discrepancy darkened/blurred vision. She also complains of a posterior headache at this time despite Tylenol administration in the ER. Patient denies any focal strength deficits, no numbness or tingling, no bowel or bladder incontinence. Dysarthria and visual disturbances are now resolved at the time of my visit in the ER with the patient. Due to the intralaminar steroid injection, she had held Coumadin x 5 days prior to this. Afterwards she required Lovenox bridging with her Coumadin finished last Lovenox injection on Wednesday night. Patient reports that she does have 3 vials of Lovenox left however she states that her instructions reported to finish on Wednesday evening. Today her INR is subtherapeutic at 1.4. She does have some residual bruising on her abdomen status post Lovenox injections. She reports having some residual pain from intralaminar steroid injection at the injection site, but states that her overall chronic back pain seems to have been improved from the injection. Other injection she took today was Repatha 140 mg (q. 14 days). At baseline, ptient walks and participates in ADLs with any difficulty at home. She took her medication today including Coumadin. CTA of the head and neck are negative for any acute findings. Allergies Allergy/AdvReac Type Severity Reaction Status Date / Time hydrocodone Allergy Severe HIVES Verified 06/15/24 21:05 Sulfa (Sulfonamide Allergy Severe HIVES/VOMIT Verified 06/15/24 21:05 Antibiotics) ING esomeprazole Allergy Intermediate HEADACHES Verified 06/15/24 21:05 nickel Allergy Intermediate Hives Verified 06/15/24 21:40 metronidazole Allergy Unknown unk Verified 06/15/24 21:05 moxifloxacin Allergy Unknown UNKNOWN Verified 06/15/24 21:05 nitrofurantoin Allergy Unknown HIVES Verified 06/15/24 21:05 phenylpropanolamine Allergy Unknown unknown Verified 06/15/24 21:05 terazosin Allergy Unknown HIVES Verified 06/15/24 21:05 scopolamine AdvReac Intermediate DEHYDRATION Verified 06/15/24 21:05 ciprofloxacin AdvReac Unknown Tendon Verified 06/15/24 21:05 Tears hydromorphone [From Dilaudid] AdvReac Vomiting Verified 06/15/24 21:05 EXGEST Allergy Intermediate PALPITATION Uncoded 06/15/24 21:05 S Home Medications Medication Instructions Recorded Confirmed Type Multivitamin 1 tab PO NOON ##0 03/05/08 06/15/24 History Montelukast (Singulair *) 20 mg PO BID ##0 12/09/11 06/15/24 History SPIRONOLACTONE (ALDACTONE) 25 mg PO QAM #0 tabs 11/23/13 06/15/24 History CYANOCOBALAMIN (VITAMIN B12) 1,000 mcg PO NOON ##0 06/05/15 06/15/24 History POLYETHYLENE GLYCOL-PROPYLENE 1 drp ophthalmic (eye) QID PRN 10/01/21 06/15/24 History (SYSTANE) lubricant #30 mL WARFARIN SODIUM 2 mg PO UD ##0 10/01/21 06/15/24 History citalopram 10 mg tablet (Celexa) 10 mg PO DAILY 10/01/21 06/15/24 History ezetimibe 10 mg tablet (Zetia) 10 mg PO DAILY 10/01/21 06/15/24 History fluticasone propionate 50 2 spray intranasal DAILY 10/01/21 06/15/24 History mcg/actuation nasal spray,suspension (Flonase Allergy Relief) latanoprost 0.005 % eye drops 1 drp ophthalmic (eye) HS 10/01/21 06/15/24 History loratadine 10 mg tablet (Allergy 10 mg PO DAILY 10/01/21 06/15/24 History Relief (loratadine)) magnesium 200 mg tablet 400 mg PO DAILY 03/20/22 06/15/24 History potassium chloride 10 mEq 10 meq PO DAILY 03/20/22 06/15/24 History tablet,extended release (Klor-Con) xdospbh-usoyavreo-sxab tablet 1 tab PO DAILY 10/23/22 06/15/24 History cholecalciferol (vitamin D3) 125 125 mcg PO DAILY 10/23/22 06/15/24 History mcg (5,000 unit) capsule fluocinolone acetonide oil 0.01 % 4 drp otic (ear) BID PRN wax 10/23/22 06/15/24 History ear drops levothyroxine 50 mcg tablet 50 mcg PO DAILY 10/23/22 06/15/24 History (Levoxyl) pantoprazole 20 mg tablet,delayed 40 mg PO DAILY 10/23/22 06/15/24 History release pramipexole 0.5 mg tablet 0.5 mg PO HS 10/23/22 06/15/24 History torsemide 20 mg tablet 20 mg PO DAILY 10/23/22 06/15/24 History Past Med/Surg History Problem List (Updated 06/15/24 @ 21:26 by Brad Gamble DO) Headache (Acute) TIA (transient ischemic attack) (Acute) Stroke-like symptom Malignant neoplasm of upper-outer quadrant of left breast in female, estrogen receptor positive (Chronic 07/10/21) Medical History Vaginitis Chronic TMJ (temporomandibular joint disorder) Obstructive sleep apnea Wears CPAP HS CKD (chronic kidney disease), stage III Generalized anxiety disorder GERD (gastroesophageal reflux disease) Migraine "has not had one in years" Syncope 1 episode - none since Pyelonephritis Resolved Hypertension Hypercholesteremia Mitral valve prolapse Factor V Leiden Hypothyroid Pulmonary embolism (11/2011) Surgical History History of hysterectomy (1978) History of ankle surgery 2014 + 2016 (repaired tendon tears) History of cataract removal with insertion of prosthetic lens History of lumpectomy of left breast (08/20/21) Dr. Roxi Platt - invasive ductal carcinoma, ER/NC+, HER2- History of left breast biopsy (07/10/21) Dr. Roxi Platt - invasive ductal carcinoma, ER/NC+, HER2- Family History Father , Passed age 78 of Black Lung (smoker) No problems noted. Mother , Passed age 90 of natural causes No problems noted. Sister , Passed age 90 natural causes No problems noted. Brother , Passed age 62 of heart complications No problems noted. Brother , Passed late 80's of Aneurysm Mesothelioma, Onset Age: 70 Brother , Passed in 80's of Colon Cancer No problems noted. Brother Pancreatic cancer, Onset Age: 84 Currently undergoing treatment in [place] Daughter No problems noted. Daughter No problems noted. 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 ENT: normal hearing, no trouble swallowing Respiratory: No cough, sputum, dyspnea at rest or on exertion Cardiovascular: No chest pain, tightness or palpitations Abdomen: No pain, nausea, vomiting, diarrhea or constipation Musculoskeletal: No joint pain, calf pain, swelling : chronic urinary incontinence Neurologic: No weakness, numbness/tingling, or balance problems Psychiatric: No anxiety or depression Skin: No rash or itch Physical Exam Physical Exam: General: awake, alert, no apparent distress, obese white female Head: Normocephalic, atraumatic ENT: PERRL, EOMI, no pharyngeal exudate, mucous membranes moist Chest: Clear to auscultation, on room air, no adventitious breath sounds Cardiac: Regular rate and rhythm, + GAIL, no JVD, normal peripheral pulses, good capillary refill Abdominal: + ecchymotic lesions from lovenox inj, NABS x 4 quadrants, soft, nondistended, nontender to palpation, no rebound or guarding Extremities: Normal inspection, no peripheral edema or erythema, calfs nontender to palpation Psych: Normal mood and affect Neuro: AAO x 3, strength intact bilaterally and rated 5/5, no motor deficits, speech is clear, negative pronator drift, participates in rapid alternating movements, heel to granados testing, finger to nose, no peripheral sensory deficits Results & Data Results & Data Vital Signs (Past 12 Hours) Vital Signs Temp Pulse Pulse Resp BP BP Pulse Ox 06/15/24 20:12 75 19 119/69 97 06/15/24 19:00 90 17 168/89 H 06/15/24 18:53 75 192/94 H 06/15/24 18:51 76 06/15/24 18:45 79 20 192/94 H 98 06/15/24 18:19 98 06/15/24 18:12 36.5 C 77 18 210/100 H 97 O2 Del Method 06/15/24 20:12 06/15/24 19:00 06/15/24 18:53 06/15/24 18:51 06/15/24 18:45 Room Air 06/15/24 18:19 Room Air 06/15/24 18:12 Room Air Laboratory Results 06/15/24 06/15/24 06/15/24 18:40 18:33 18:28 WBC 9.88 RBC 5.05 Hgb 14.1 POC Hgb 15.0 Hct 43.7 POC Hct 44 MCV 86.5 MCH 27.9 MCHC 32.3 RDW Std Deviation 45.1 RDW Coeff of Asher 14.4 Plt Count 264 MPV 9.9 Immature Gran % (Auto) 0.9 Neut % (Auto) 62.7 Lymph % (Auto) 24.6 [place] % (Auto) 9.4 Eos % (Auto) 1.9 Baso % (Auto) 0.5 Neut # (Auto) 6.19 Lymph # (Auto) 2.43 [place] # (Auto) 0.93 H Eos # (Auto) 0.19 Baso # (Auto) 0.05 Immature Gran # (Auto) 0.09 PT 14.5 H INR 1.4 H APTT 28 PTT Ratio 1.0 POC Sodium 137 Sodium 137 POC Potassium 4.0 Potassium 4.1 POC Chloride 99 L Chloride 99 Carbon Dioxide 30 POC Total CO2 28 Anion Gap 8 POC Anion Gap 15.0 L POC BUN 20 H BUN 21 Creatinine 1.08 POC Creatinine 1.2 Est Cr Clr Drug Dosing 45.7 Est GFR ( Amer) 56.1 Est GFR (Non-Af Amer) 48.4 BUN/Creatinine Ratio 19.4 Glucose 124 H POC Glucose 124 H POC Glucose (other) 125 H Calcium 9.3 POC Ioniz Calcium Michael 1.14 Magnesium 2.4 Total Bilirubin 0.5 AST 31 ALT 37 Alkaline Phosphatase 64 Troponin I High Sens 6.8 Total Protein 7.0 Albumin 4.3 Globulin 2.7 Albumin/Globulin Ratio 1.[address] 06/15/24 18:[address] OF THE BRAIN; CT ANGIOGRAM OF THE BRAIN; CT ANGIOGRAM OF THE NECK CLINICAL HISTORY: Strokelike symptoms. Neurological deficit. COMPARISON STUDY: CT of the brain dated 11/24/2023. TECHNIQUE: Unenhanced axial CT scan of the brain is performed. Subsequently, following the IV administration of 119 of Optiray 320, CT angiogram of the head and neck was performed from the aortic arch to the vertex. Images are reviewed in the axial, sagittal, and coronal planes. 3-D MIPS images are created and assessed. IV contrast was administered without complication. All measurements were calculated based on NASCET criteria. A dose lowering technique was utilized adhering to the principles of ALARA. CT DOSE: 1137.85 mGy.cm FINDINGS: Brain parenchyma: There is age-related involutional change noting mild subcortical and periventricular microangiopathic disease. There is no hemorrhage, mass effect, or evidence of acute territorial ischemia by CT criteria. There is no evidence of enhancing mass lesion on the angiogram phase images. The ventricles, sulci, and cisterns are prominent secondary to involutional change. Saldivar-white matter differentiation is preserved. No extra- axial fluid collection is seen. Thoracic aorta: There is mild atherosclerotic calcification of the thoracic aorta. Visualized portions of the thoracic aorta are normal in caliber. The aortic arch demonstrates standard 3-vessel anatomy. Right carotid arterial system: The right common carotid artery is widely patent, as are the right internal and external carotid arteries. Minimal calcified plaque is seen in the carotid bulb. Left carotid arterial system: The left common carotid artery is widely patent, as are the left internal and external carotid arteries. Minimal calcified plaque is seen in the carotid bulb. Vertebral arteries: Widely patent bilaterally and codominant. Subclavian arteries: Widely patent bilaterally. Intracranial vasculature: There is atherosclerotic calcification of the cavernous carotid arteries. The internal carotid arteries are patent at the skull base, as are the anterior and middle cerebral arteries bilaterally. The vertebrobasilar system and posterior cerebral arteries are widely patent. The ve rtebral arteries are codominant. There is no aneurysm, high-grade stenosis, or focal vessel cut off seen throughout the intracranial circulation. Jugular veins: Patent bilaterally. Dural sinuses: Patent. Lung apices: Partially visualized upper lobe lung parenchyma appears clear. Soft tissues: The visualized pharyngeal soft tissues are normal in appearance noting angiographic phase technique. The oropharyngeal airway appears widely patent. The salivary and thyroid glands are normal in appearance. No cervical lymphadenopathy is seen. Skeletal structures: The skeletal structures are osteopenic. The calvarium appears intact. The cervical spine is maintained noting multilevel spondylosis. Orbits: The bony orbits are intact. Orbital contents are normal as visualized noting bilateral ocular lens implants. Sinuses and mastoids: There is trace mucosal thickening within the maxillary antra. The remaining paranasal sinuses are clear. The mastoid air cells are well pneumatized. Cerumen is noted in the right external auditory canal. IMPRESSION: 1. There is no hemorrhage, mass effect, or evidence of acute territorial ischemia by CT criteria. 2. Unremarkable CT angiogram of the brain. 3. Unremarkable CT angiogram of the neck. ACT 112: Negative or not required by law. Electronically signed by: Homero Beckham M.D. 06/15/2024 6:45 PM Head CTA 06/15/24 18:[address] OF THE BRAIN; CT ANGIOGRAM OF THE BRAIN; CT ANGIOGRAM OF THE NECK CLINICAL HISTORY: Strokelike symptoms. Neurological deficit. COMPARISON STUDY: CT of the brain dated 11/24/2023. TECHNIQUE: Unenhanced axial CT scan of the brain is performed. Subsequently, following the IV administration of 119 of Optiray 320, CT angiogram of the head and neck was performed from the aortic arch to the vertex. Images are reviewed in the axial, sagittal, and coronal planes. 3-D MIPS images are created and assessed. IV contrast was administered without complication. All measurements were calculated based on NASCET criteria. A dose lowering technique was utilized adhering to the principles of ALARA. CT DOSE: 1137.85 mGy.cm FINDINGS: Brain parenchyma: There is age-related involutional change noting mild subcortical and periventricular microangiopathic disease. There is no hemorrhage, mass effect, or evidence of acute territorial ischemia by CT criteria. There is no evidence of enhancing mass lesion on the angiogram phase images. The ventricles, sulci, and cisterns are prominent secondary to involutional change. Saldivar-white matter differentiation is preserved. No extra- axial fluid collection is seen. Thoracic aorta: There is mild atherosclerotic calcification of the thoracic aorta. Visualized portions of the thoracic aorta are normal in caliber. The aortic arch demonstrates standard 3-vessel anatomy. Right carotid arterial system: The right common carotid artery is widely patent, as are the right internal and external carotid arteries. Minimal calcified plaque is seen in the carotid bulb. Left carotid arterial system: The left common carotid artery is widely patent, as are the left internal and external carotid arteries. Minimal calcified plaque is seen in the carotid bulb. Vertebral arteries: Widely patent bilaterally and codominant. Subclavian arteries: Widely patent bilaterally. Intracranial vasculature: There is atherosclerotic calcification of the cavernous carotid arteries. The internal carotid arteries are patent at the skull base, as are the anterior and middle cerebral arteries bilaterally. The vertebrobasilar system and posterior cerebral arteries are widely patent. The vertebral arteries are codominant. There is no aneurysm, high-grade stenosis, or focal vessel cut off seen throughout the intracranial circulation. Jugular veins: Patent bilaterally. Dural sinuses: Patent. Lung apices: Partially visualized upper lobe lung parenchyma appears clear. Soft tissues: The visualized pharyngeal soft tissues are normal in appearance noting angiographic phase technique. The oropharyngeal airway appears widely patent. The salivary and thyroid glands are normal in appearance. No cervical lymphadenopathy is seen. Skeletal structures: The skeletal structures are osteopenic. The calvarium appears intact. The cervical spine is maintained noting multilevel spondylosis. Orbits: The bony orbits are intact. Orbital contents are normal as visualized noting bilateral ocular lens implants. Sinuses and mastoids: There is trace mucosal thickening within the maxillary antra. The remaining paranasal sinuses are clear. The mastoid air cells are well pneumatized. Cerumen is noted in the right external auditory canal. IMPRESSION: 1. There is no hemorrhage, mass effect, or evidence of acute territorial ischemia by CT criteria. 2. Unremarkable CT angiogram of the brain. 3. Unremarkable CT angiogram of the neck. ACT 112: Negative or not required by law. Electronically signed by: Homero Beckham M.D. 06/15/2024 6:45 PM Neck CTA 06/15/24 18:[address] OF THE BRAIN; CT ANGIOGRAM OF THE BRAIN; CT ANGIOGRAM OF THE NECK CLINICAL HISTORY: Strokelike symptoms. Neurological deficit. COMPARISON STUDY: CT of the brain dated 11/24/2023. TECHNIQUE: Unenhanced axial CT scan of the brain is performed. Subsequently, following the IV administration of 119 of Optiray 320, CT angiogram of the head and neck was performed from the aortic arch to the vertex. Images are reviewed in the axial, sagittal, and coronal planes. 3-D MIPS images are created and as sessed. IV contrast was administered without complication. All measurements were calculated based on NASCET criteria. A dose lowering technique was utilized adhering to the principles of ALARA. CT DOSE: 1137.85 mGy.cm FINDINGS: Brain parenchyma: There is age-related involutional change noting mild subcortical and periventricular microangiopathic disease. There is no hemorrhage, mass effect, or evidence of acute territorial ischemia by CT criteria. There is no evidence of enhancing mass lesion on the angiogram phase images. The ventricles, sulci, and cisterns are prominent secondary to i nvolutional change. Saldivar-white matter differentiation is preserved. No extra- axial fluid collection is seen. Thoracic aorta: There is mild atherosclerotic calcification of the thoracic aorta. Visualized portions of the thoracic aorta are normal in caliber. The aortic arch demonstrates standard 3-vessel anatomy. Right carotid arterial system: The right common carotid artery is widely patent, as are the right internal and external carotid arteries. Minimal calcified plaque is seen in the carotid bulb. Left carotid arterial system: The left common carotid artery is widely patent, as are the left internal and external carotid arteries. Minimal calcified plaque is seen in the carotid bulb. Vertebral arteries: Widely patent bilaterally and codominant. Subclavian arteries: Widely patent bilaterally. Intracranial vasculature: There is atherosclerotic calcification of the cavernous carotid arteries. The internal carotid arteries are patent at the skull base, as are the anterior and middle cerebral arteries bilaterally. The vertebrobasilar system and posterior cerebral arteries are widely patent. The vertebral arteries are codominant. There is no aneurysm, high-grade stenosis, or focal vessel cut off seen throughout the intracranial circulation. Jugular veins: Patent bilaterally. Dural sinuses: Patent. Lung apices: Partially visualized upper lobe lung parenchyma appears clear. Soft tissues: The visualized pharyngeal soft tissues are normal in appearance noting angiographic phase technique. The oropharyngeal airway appears widely patent. The salivary and thyroid glands are normal in appearance. No cervical lymphadenopathy is seen. Skeletal structures: The skeletal structures are osteopenic. The calvarium appears intact. The cervical spine is maintained noting multilevel spondylosis. Orbits: The bony orbits are intact. Orbital contents are normal as visualized noting bilateral ocular lens implants. Sinuses and mastoids: There is trace mucosal thickening within the maxillary antra. The remaining paranasal sinuses are clear. The mastoid air cells are well pneumatized. Cerumen is noted in the right external auditory canal. IMPRESSION: 1. There is no hemorrhage, mass effect, or evidence of acute territorial ischemia by CT criteria. 2. Unremarkable CT angiogram of the brain. 3. Unremarkable CT angiogram of the neck. ACT 112: Negative or not required by law. Electronically signed by: Homero Beckham M.D. 06/15/2024 6:45 PM Code Status & VTE Plan Code Status Full code - discussed with pt at bedside Supervising Physician Co-Signing Physician Notes IM ATTENDING : Patient seen and examined. History obtained from patient and records. Concur with salient points upon review of preceding documentation by Ms. Naomi Peterson PA-C. I take responsibility for plan of care below. FINAL ASSESSMENT AND PLAN as follows : Transient aphasia/dysarthria symptoms with headache symptoms TIA versus complicated migraine Hypertension elevated secondary to above History diastolic dysfunction (EF 53%, TTE 2023), patient euvolemic Hyperlipidemia/statin Rx intolerance, on Repathia and ezetimibe Valvular heart disease (trace MR, mitral valve prolapse as per records) Hypercoagulable state (history of PE, factor V Leiden deficiency on Coumadin), INR subtherapeutic Left breast cancer status post surgery/radiation BIANCA on CPAP Hypothyroidism, euthyroid as of outpatient TSH Hyperglycemia rule out DM OBS Medical telemetry Neurochecks Aspirin for stroke prevention, permissive hypertension until stroke ruled out MRI brain, TTE for stroke workup Neurology consult Re: Transient aphasia/dysarthria Update lipid profile Check hemoglobin A1c DVT prophylaxis. Coumadin INR goal between 2 and 3 Full code Text document was generated using [employer] voice recognition software. It may contain grammatical or spelling errors. Kindly contact undersigned for clarification of any documentation item in question.
--- NOTE | 2024-06-15 22:22 | XRay Report ---
SINGLE VIEW CHEST CLINICAL HISTORY: Neurological deficit. Stroke like symptoms. FINDINGS: An AP, portable, upright chest radiograph is compared to study dated 11/23/2013. The examinat ion is degraded by portable technique and patient rotation. The heart is enlarged. The pulmonary vas culature is noncongested. Chronic interstitial thickening is similar to previous. There is bibasilar scarring/atelectasis. No airspace consolidation or large pleural effusion is identified. No pneumotho rax is seen. The skeletal structures are osteopenic. The bony thorax is grossly intact. IMPRESSION: No acute cardiopulmonary abnormality is identified. ACT 112: Negative or not required by law. Electronically signed by: Homero Beckham M.D. 06/15/2024 10:21 PM
[2024-06-15] MEDS: SODIUM CHLORIDE 0.9% 1,000 ML IV ONE (22:27)
[2024-06-15] MEDS ORDERED: PHARMACIST DISCHARGE MED REC CONSULT PRN (22:30)
[2024-06-15] MEDS ORDERED: LORazepam 0.5 MG TAB PO PRN (22:32)
[2024-06-15] MEDS ORDERED: oxyCODONE HCL IR 5 MG TAB (IMMEDIATE RELEASE) PO PRN (22:32)
[2024-06-15] MEDS ORDERED: PROMETHAZINE 6.25 MG/50.25 ML BAG IV PRN (22:32)
[2024-06-15] MEDS ORDERED: ACETAMINOPHEN 325 MG TAB PO PRN (22:33)
[2024-06-15] MEDS: rOPINIRole HCL 0.25 MG TABLET PO STA (22:57)
[2024-06-15] MEDS: WARFARIN SOD 5 MG TAB PO ONE (22:58)
[2024-06-15] MEDS: ASPIRIN 81 MG ECTAB PO STA (22:58)
[2024-06-15] MEDS: LORazepam 2 MG/1 ML VIAL IV STA (23:51)
[2024-06-15] MEDS: LATANOPROST 0.005% OP SOLN 2.5 ML BTL OP SCH (23:52)
[2024-06-16 01:10] LABS: Appearance Urine Clear (Clear); Bacteria Urine Automated None Seen (None Seen); Bilirubin Urine Negative (Negative); Blood Urine Trace (Negative); Cast Urine Automated 0-2 /lpf (0-2); Color Urine Yellow; Epithelial Cell Urine Auto 0-2 /hpf (0-2); Glucose Urine UA Negative (Negative); Ketones Urine Negative (Negative); Leukocyte Esterase Urine 2+ (Negative); Nitrite Urine Negative (Negative); Protein Urine Negative (Negative); Specific Gravity Urine 1.038 (1.000-1.030); Urobilinogen Urine Negative (Negative); WBC Urine Automated >50 /hpf (0-5)
[2024-06-16] MEDS ORDERED: PNEUMOCOCCAL VACCINE (PCV20) 20-VAL CONJ-DIP CRM/PF 0.5 ML SYR IM ONE (01:17)
[2024-06-16] MEDS ORDERED: ARTIFICIAL TEARS OP PRN (01:33)
--- NOTE | 2024-06-16 01:48 | Magnetic Resonance Report ---
Exam(s): MRI HEAD Without Contrast EXAM: MR Head Without Intravenous Contrast CLINICAL HISTORY: TIA. TECHNIQUE: Magnetic resonance images of the head/brain without intravenous contrast in multiple planes. COMPARISON: CT head 06/15/2024 FINDINGS: Brain: No acute infarct. No intracranial hemorrhage, mass-effect or midline shift. Mild periventricular white matter T2/flair signal abnormalities are most consistent with chronic microangiopathy. Ventricles: Unremarkable. No ventriculomegaly. Bones/joints: Unremarkable. No acute fracture. Sinuses: There is mild mucosal thickening of the ethmoid and maxillary sinuses. The remaining visualized paranasal sinuses are clear. No acute sinusitis. Mastoid air cells: Unremarkable as visualized. No mastoid effusion. Orbits: Unremarkable as visualized. IMPRESSION: No acute findings in the head/brain. Electronically signed by: Carola Ramirez MD 06/16/24 01:47 AM
--- OUTSIDE RECORDS SUMMARY | 2024-06-16 04:04 | External Medical Summary | Summary of Care ---
Author Name Unknown Organization [facility] Address [address] [place] [address] Phone [phone] Care Team Providers Care Plastic Tile Layer Name Role Phone Yoav Kong MD Primary Care Provide r Reason for Referral * Evaluate & Treat - Unlimited Visits (Within 30 days (routine)) - Authorized Specialty Diagnoses / Procedures Referred By Parrish moreira Referred To Contact Vascular Surgery / Cardiovascular Surgery Diagnoses Peripheral venous insufficiency Varicose veins of both lower extremities, unspecified whether complicated Localized edema Daylin Diaz PA-C [address] [place] [address] Referral ID Status Reason Start Date Expiration Date Visits Requested Visits Authorized [id number] Authorized Specialty Services Required 05/31/[phone] Question Answer Referral Priority Within 30 days (routine) Where should this appointment be scheduled? External - [facility] What condition is the patient being seen for? Varicosity/Glue vein ablation Comments Venous insufficiency; varicosities - schedule with [facility] - Dr. Caro/ Maryjane Rankin Reason for Visit * Reason Comments Follow Up Encounter Details Date Type Department Care Team (Late st Contact Info) Description 05/31/2024 10:30 AM EDT Office Visit Cardiology, [facility] [address] [place] [address] Daylin Diaz PA-C [address] [place] [address] HTN, goal below 140/90*; Abdominal bloating; Other ascites; Peripheral venous insufficiency; Varicose veins of both lower extremities, unspecified whether complicated; Localized edema; Statin intolerance; Hyperlipidemia with target LDL less than 70 Allergies Active Allergy Reactions Criticality Noted Date Comments Moxifloxacin Hydrochloride 0 "patient states her pharmacist told her not to take this med" Ciprofloxacin Other (Please comment) 05/28/2015 Caused tendon tears Other Reaction(s): Not available, Tendon Tears Hydromorphone Hcl Nausea/vomiting 09/17/2015 Esomeprazole High 06/26/2002 migraine headache nexium Other Reaction(s): HEADACHES, Not available Ppa-Gg Cr Other (Please comment) Medium 03/10/2010 Raises blood pressure and experiences heart palpatations. Fluconazole Hives Low 10/16/2010 Vibegron Anaphylaxis High 01/05/2024 Hydrocodone Itching High 05/28/2015 Other Reaction(s): HIVES Hydromorphone 11/12/2023 Other Reaction(s): Vomiting Metronidazole Hives,Unknown 08/15/2012 Other Reaction(s): Not available Moxifloxacin Unknown 05/28/2015 Other Reaction(s): Not available, UNKNOWN Nickel Rash 09/17/2015 Nitrofurantoin 05/28/2015 Other Reaction(s): HIVES, Not available Nitrofurantoin Monohyd Macro Hives Medium 11/29/2013 Semaglutide(0.25 Or 0.5mg-Dos) 07/24/2022 Nausea, diarrhea, rash Phenylpropanolamine Hcl Exgest LA--heart palpitations/side effect Scopolamine Other (Please comment) 06/06/2001 "it dehydrates me" Sulfa Antibiotics Hives,Nausea/vomit ing 09/24/2000 Other reaction(s): sick to stomach Terconazole 06/10/2010 hives Terconazole Unknown 05/28/2015 documented as of this encounter (statuses as of 06/08/2024) Medications Medication Sig Dispensed Refills Start Date End Date Status WOMENS MULTIVITAMIN PLUS PO TABS one daily Active Magnesium Oxide 400 MG Capsule Take 1 Capsule by mouth in the morning. 09/17/20 15 Active Calcium Glycerophosphate 340 (65-50) MG (CA-P) TABS Take by mouth 1 Tablet daily . Active NATURAL SUPPLEMENT Take by mouth daily. Whole daniela seeds, 1 scoop daily Active latanoprost (XALATAN) 0.005 % ophthalmic solution Instill 1 Drop into both eyes at bedtime. 03/15/20 20 Active Loratadine 10 MG Oral Capsule Take 1 Capsule by mouth in the morning. Active Polyethyl Glycol-Propyl Glycol 0.4-0.3 % Ophthalmic Solution Instill into eye as needed for Dry eyes. Active CPAP once. Active Vitamin D3 25 MCG (1000 UT) Oral Tablet (Vitamin D3) Take 1 Tablet by mouth in the morning. 06/10/20 Active Folic Acid 800 MCG Oral Tablet Take 1 Tablet by mouth in the morning. 06/10/20 22 Active high fiber LIQD Take by mouth. 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,Venous thrombosis TAKE 4 MG (2 TABLETS) ON WEDNESDAYS TAKE 3 MG (1.5 TABLETS) ALL OTHER DAYS OR DIRECTED BY ANTICOAGULATION CLINIC 140 Tablet 3 04/05/20 23 Active Fluticasone Propionate 50 MCG/ACT Nasal Suspension (Flonase)Indication s:Protracted URI SPRAY 2 SPRAYS INTO EACH NOSTRIL EVERY DAY 48 mL 2 05/11/20 23 Active Levothyroxine Sodium 50 MCG Oral Tablet (Levoxyl)Indication s:Hypothyroidism TAKE 1 TABLET BY MOUTH EVERY DAY 90 Tablet 2 11/11/19 24 Active Ezetimibe 10 MG Oral Tablet (Zetia) TAKE 1 TABLET BY MOUTH EVERY DAY 90 Tablet 2 12/17/19 24 Active Montelukast Sodium 10 MG Oral Tablet (Singulair) TAKE 1 TABLET BY MOUTH EVERY DAY 90 Tablet 2 12/17/19 24 Active Citalopram Hydrobromide 10 MG Oral Tablet (CeleXA)Indications :Generalized anxiety disorder TAKE 1 TABLET BY MOUTH EVERY DAY 90 Tablet 2 12/17/19 24 Active Spironolactone 25 MG Oral Tablet (Aldactone)Indicati ons:Dyslipidemia, goal LDL below 100,Pulmonary embolus (HCC),HTN, goal below 130/80,Factor V Leiden (HCC) TAKE 1 TABLET BY MOUTH EVERY DAY 90 Tablet 2 12/17/19 24 Active Pramipexole Dihydrochloride 0.125 MG Oral Tablet (Mirapex)Indication s:Restless legs syndrome (RLS) TAKE 1 TABLET BY MOUTH 90 MINUTES PRIOR TO TYPICAL ONSET OF RESTLESS LEG SYMPTOMS 90 Tablet 3 01/11/20 24 Active Klor-Con M10 10 MEQ Oral Tablet Extended Release (potassium chloride ER)Indications:Terry a TAKE 1 TABLET BY MOUTH EVERY DAY IN THE MORNING 90 Tablet 3 01/12/20 24 Active Torsemide 20 MG Oral Tablet (Demadex)Indication s:Diastolic dysfunction TAKE 1 TABLET BY MOUTH EVERY DAY IN THE MORNING 90 Tablet 3 01/10/20 24 Active Naltrexone HCl 50 MG Oral Tablet (Revia) Take 1/2 tab by mouth once a day for 1 week then take 1/2 tab twice a day (morning & late afternoon) 30 Tablet 3 02/23/20 24 Active Additional Information Patient not taking.Reported on 04/17/2024 Metamucil Fiber Oral Tablet Chewable Take by mouth. Active Pantoprazole Sodium 40 MG Oral Tablet Delayed Release (Protonix)Indicatio ns:Gastroesophageal reflux disease without esophagitis TAKE 1 TABLET BY MOUTH ONCE DAILY 30 MINUTES BEFORE THE FIRST MEAL OF THE DAY 90 Tablet 2 03/22/20 24 Active Super B-50 Complex Oral Capsule Take 1 Capsule by mouth every morning. Active Metoprolol Succinate ER 25 MG Oral Tablet Extended Release 24 Hour (Toprol XL)Indications:Palp itations Take 1 Tablet by mouth in the morning and 1 Tablet before bedtime. 180 Tablet 3 04/28/20 24 Active methylPREDNISolone 4 MG Oral Tablet Therapy Pack (Medrol Dosepack) follow package directions 21 Tablet 05/26/20 24 Active Additional Information Patient not taking.Reported on 05/31/2024 Famotidine 20 MG Oral Tablet (Pepcid) Take 1 tablet by mouth every 12 hours as needed for stomach upset while taking steroid therapy. 20 Tablet 05/26/20 24 Active Additional Information Patient not taking.Reported on 05/31/2024 Enoxaparin Sodium 100 MG/ML Injection Solution Prefilled Syringe (Lovenox) Inject 100 mg under the skin in the morning and 100 mg before bedtime. As directed by anticoagulation clinic for bridging instructions.. 05/31/20 24 Active Enoxaparin Sodium 100 MG/ML Injection Solution Prefilled Syringe (Lovenox) Inject 100 mg under the skin in the morning and 100 mg before bedtime. As directed by anticoagulation clinic for bridging instructions. Active Biotin 1000 MCG Oral Tablet Chewable Take by mouth 5,000 mcg daily . 06/10/20 22 2023 Discontinued buPROPion HCl ER (SR) 150 MG Oral Tablet Extended Release 12 Hour (Wellbutrin SR) Take 1 tab by mouth once a day for 1 week then take 1 tab twice a day (morning & late afternoon) 60 Tablet 3 02/23/20 24 2023 Discontinued Repatha SureClick 140 MG/ML Subcutaneous Solution Auto-injector (evolocumab) Inject 140 mg (1 pen) under the skin every 14 days. Remove from refrigerator 30 minutes prior to injection. 6 mL 3 03/02/20 24 2023 Discontinued(R efill) Gabapentin 100 MG Oral Capsule (Neurontin)Indicati ons:Neuropathic pain Take 2 capsules by mouth at night for one week then advance to 2 capsules by mouth twice daily thereafter. 120 Capsule 2 04/12/20 24 2023 Discontinued Enoxaparin Sodium 100 MG/ML Injection Solution Prefilled Syringe (Lovenox) Inject 100 mg under the skin in the morning and 100 mg before bedtime. As directed by anticoagulation clinic for bridging instructions.. 10 mL 05/29/20 24 2023 Discontinued Hospital, Clinic, or Other Facility Administered Medication Ordered Dose Route Frequency Start Date End Date Status Hylan (Synvisc) inj 16 mgIndications:Primary osteoarthritis of right knee 16 mg IX QWEEK 07/08/2023 Active documented as of this encounter (statuses as of 06/08/2024) Active Problems Problem Noted Date Diagnosed Date Obesity, morbid (more than 1 00 lbs over ideal weight or BMI > 40) 12/13/2023 Diastolic dysfunction 01/09/2022 Laceration of left index fin alona without foreign body without damage to nail 10/01/2021 Infiltrating ductal carcinoma of left breast 09/2020 Chronic kidney disease, stage 3a 01/28/2021 Overview: Per CKD protocol Hypertensive kidney disease with stage 3a chronic kidney disease 07/29/2020 Overview: Per CKD protocol Restoration or spiritual beliefs affecting medical care 05/25/2019 Overview: No blood products Update of IMO term De Quervain's tenosynovitis 05/03/2019 Slac (scapholunate advanced collapse) of wrist, 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 Primary osteoarthritis of fi rst carpometacarpal joint of right hand 05/03/2019 Varicose veins of both legs with edema 9 BIANCA (obstructive sleep apnea) 03/24/2017 Overview: APAP 5-15 cwp Care Plus Oxygen Statin intolerance 07/06/2016 Spider veins of both lower extremities 6 Hypothyroidism 07/09/2014 ADVANCE DIRECTIVE INFORMATION 06/01/2012 Overview: Yes, Copy scanned at patient level in the electronic medical record.(Go to Action, Patient File to view) Patient aware they must notify their healthcare provider of changes. HTN, goal below 140/90 03/30/2012 Factor V Leiden 12/28/2011 History of pulmonary embolism 12/20/2011 Anticoagulation management encounter 12/14/2011 care home current use of anticoagulant therapy 0 12/14/2011 DYSLIPIDEMIA, GOAL LDL BELOW 100 08/29/2009 Overview: Per Lipid Taxonomy. COMMON MIGRAINE WITHOUT MENTION OF INTRACTABLE M IGRAINE 01/01/2003 GENERALIZED ANXIETY DIS 12/19/2001 TEMPOROMANDIBULAR JOINT DISORDERS, UNSPECIFIED Mitral valve disorder Gastroesophageal reflux disease without esophagi tis Other allergic rhinitis Overview: ICD-10 update of inactive term Mitral valve prolapse documented as of this encounter (statuses as of 06/08/2024) Resolved Problems Problem Noted Date Diagnosed Date Resolved Date Class 2 severe obesity with serious comorbidity and body mass index (BMI) of 36.0 to 36.9 in adult 12/08/2022 06/10/2023 Class 2 severe obesity with serious comorbidity and body mass index (BMI) of 36.0 to 36.9 in adult 12/08/2022 06/10/2023 Class 2 severe obesity with serious comorbidity and body mass index (BMI) of 36.0 to 36.9 in adult 12/08/2022 06/10/2023 Class 2 severe obesity with serious comorbidity and body mass index (BMI) of 36.0 to 36.9 in adult 12/08/2022 12/13/2023 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 Examination following surgery 10/01/2009 07/23/2012 Joint pain, foot 09/30/2009 10/14/2015 HTN, GOAL BELOW 140/90 07/26/200910/16 Overview: Modified per HTN Taxonomy. Kidney disease, chronic, sta ge III (GFR 30-59 ml/min) 05/07/2009 12/28/2018 Overview: 23/1.0 GFR 59.1 Follow-up examination, follo wing other surgery 08/14/2008 07/23/2012 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03/2019 Lipoma of skin 01/02/2008 07/03/2015 Cataract 01/25/2007 04/20/2016 TEAR MED MENISC KNEE-CUR 07/09/2005 TEAR LAT MENISC KNEE-CUR 07/09/2005 Pain in limb 06/11/2005 07/03/2015 TEAR MENISCUS NEC-CURREN 01/14/200411/2011 Headache 06/26/2002 04/20/2016 Overview: ICD-10 update of inactive term Allergic rhinitis 04/09/2012 Esophagitis 04/15/2015 Overview: ICD-10 update of inactive term Stomatitis and mucositis (ulcerative) 04/15/2015 SBE (subacute bacterial endo carditis) prophylaxis candidate 09/30/2017 BENIGN HYPERTENSION 07/26/20 09 Overview: Modified per HTN Taxonomy. Vaginitis 07/23/2012 Oral aphthae 10/14/2015 Mixed dyslipidemia 9 Overview: Per Lipid Taxonomy. Tear of tendon of right ankle 12/26/2018 documented as of this encounter (statuses as of 06/08/2024) Immunizations Name Administration Dates Next Due COVID-19 mRNA, LNP-s, No Pre serve, 2-Dose Series (Moderna) 01/27/2022,07/15/2021,11/29/2020,11/01 COVID-19, MRNA-LNP, 23-24, P F, 30 MCG/0.3 mL, 12 YRS AND ABOVE, IM (PFIZER-Comirnat) 08/02/2023 Pneumococcal Conjugate Vacc, 13 Valent (Prevnar) 10/15/2014 Pneumococcal Polysaccharide PPV23 (Pneumovax) 04/24/2009 Season Influenza, Quad, PF, Adjuvanted, 65+ Yrs, IM (FLUAD) 05/28/2020 Seasonal Influenza, PF, 6 M & above, IM , (FluLaval or Fluzone) 06/26/2019,06/07/2018 Seasonal Influenza, Quadriva lent Hd (Fluzone Hd) 06/05/2023,06/06/2022,06/10/2021 Seasonal Influenza, Quadriva lent, No Preserve, IM 06/07/2017,06/22/2016,06/17/2015 Seasonal Influenza, Trivalen t, (IIV3), with Preserv, (Fluzone) 06/06/2014,06/22/2013,06/02/2012,06/15,06/10/2010,06/13/2009,07/09/2008 ,07/04/2007 TD - Tetanus/Diptheria (ADULT) 09/27/2005 TDAP (age 10 and older)(Boostrix) 06/14/2012 Varicella Zoster Vaccine (Adult) 05/03/2009 Zoster Vaccine Recombinant (Shingrix) 04/07/2020 ,09/01/2019 documented as of this encounter Social History Tobacco Use Types Packs/Day Years Used Date Smoking Tobacco: Never Smokeless Tobacco: Never Tobacco Cessation:Counseling Given: Not Answered Alcohol Use Standard Drinks/Week Comments Yes 0 (1 standard drink = 0.6 oz pure alcohol) Very rare- once a month if that PHQ-2 Answer Date Recorded PHQ Adult Total Score 0 03/28/2021 Hunger Vital Sign Answer Date Recorded Worried About Running Out of Food in the Last Ye ar Never true 10/17/2019 Ran Out of Food in the Last Year Never true 10/17/2019 Sex and Gender Information Value Date Recorded Sex Assigned at Not on file Gender Identity Female 04/12/2024 9:14 PM EDT Sexual Orientation Not on file Job Start Date Occupation Industry Not on file Not on file Not on file documented as of this encounter Last Filed Vital Signs Vital Sign Reading Time Taken Comments Blood Pressure 118/68 05/31/2024 10:24 AM EDT Pulse 82 05/31/2024 10:24 AM EDT Temperature - - Respiratory Rate - - Oxygen Saturation 94% 05/31/2024 10:24 AM EDT Inhaled Oxygen Concentration - - Weight 99.3 kg (219 lb) 05/31/2024 10:24 AM EDT Height - - Body Mass Index 40.71 01/07/2024 11:52 AM EDT documented in this encounter Progress Notes * Daylin Diaz PA-C - 05/31/2024 10:37 AM EDT Cardiology F/U: HPI: Linette Trujillo is a 79 year old female presents for close cardiology follow up. Last clinic evaluation approx 6 weeks ago with the undersigned. Cardiac Problems: Leiden factor 5 deficiency with a history of PE and DVT HLD Sleep apnea on BIANCA Partial mastectomy due to breast CA Hypertensive heart disease with diastolic dysfunction Chronic LE edema with varicose veins Obesity Mild MVP, mild MR Since last visit she subsequently underwent updated echo which demonstrated normal LVEF, mild mitral above prolapse, grade I diastolic dysfunction, and no pulm hypertension. Stable findings from prior echo. She also underwent ZIO monitor which demonstrated no concerning arrhythmias and symptomatic ectopy.She was also symptomatic with sinus tachycardia. Finally she also underwent nuclear lexiscan stress testing which was negative for inducible ischemia with normal imaging. Metoprolol was increased to aid with dyspnea and palpitations. She reports great improvement in her symptoms with this change. SOB has improved. Palpitations have improved. NO chest pain. She is still bothered by LE edema. Previously saw [facility] and was told she had varicose veins but did not recommend therapy. She wishes to have second opinion. Legs always feel heavy. No open ulcerations. She is also convinced she has swelling and fluid in her abdomen. Requesting evaluation Review of Systems: See HPI for pertinent positives. All others negative, other than those noted in HPI. 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 Factor V Leiden (HCC) HTN, goal below 140/90 History of pulmonary embolism Hypothyroidism Spider veins of both lower extremities Statin intolerance BIANCA (obstructive sleep apnea) Varicose veins of both legs with edema De Quervain's tenosynovitis Slac (scapholunate advanced collapse) of wrist, right Primary osteoarthritis of first carpometacarpal joint of right hand Restoration or spiritual beliefs affecting medical care Hypertensive kidney disease with stage 3a chronic kidney disease Chronic kidney disease, stage 3a (HCC) Infiltrating ductal carcinoma of left breast (HCC) Laceration of left index finger without foreign body without damage to nail Diastolic dysfunction Obesity, morbid (more than 100 lbs over ideal weight or BMI > 40) ([facility]) Social History Tobacco Use Smoking status: Never Smokeless tobacco: Never Vaping Use Vaping status: Never Used Substance Use Topics Alcohol use: Yes Comment: Very rare- once a month if that Drug use: No Family History Problem Relation Name Age of Onset Hypertension Mother VANESA-BSO Other (BIANCA) Brother Other (Mesothelioma) Brother Diabetes Brother Colon cancer Brother Pancreatic cancer Brother Diabetes Brother Multiple Sclerosis Daughter Other (endometriosis) Daughter VANESA-BSO Leukemia Nephew Breast Cancer No significant family history Past Surgical History: Procedure Laterality Date BX LYMPH NODE DEEP AXIL Left 08/20/2021 BIOPSY LYMPH NODE DEEP AXILLARY OPEN performed by Roxi Platt MD at OR [facility] CARPAL TUNNEL SURGERY 04/08/2009 right COLONOSCOPY, DIAGNOSTIC (RECTUM) 09/06/2017 normal, repeat 10 yrs/COLONOSCOPY FLEXIBLE PROXIMAL DIAGNOSTIC performed by Jake Espino MD at ENDOSCOPY [facility] CYSTOSCOPY 12/04/2013 CYSTOURETHROSCOPY W/BIOPSY 06/14/1992 microscopic hematuria ECHO EXAM OF HEART (2D ECHO) 2002 MVP and trace MR EGD, FLEXIBLE, DIAGNOSTIC 03/31/2018 normal/ESOPHAGOGASTRODUODENOSCOPY (EGD), FLEXIBLE, TRANSORAL, DIAGNOSTIC performed by Jake Espino MD at ENDOSCOPY [facility] IDENTIFY SENTINEL NODE, RADIOACTIVE TRACER Left 08/20/2021 INJECTION PROCEDURE FOR IDENTIFICATION SENTINEL NODE performed by Roxi Platt MD at OR [facility] KNEE ARTHROSCOPY/MENISCECTOMY 07/06/2005 right KNEE ARTHROSCOPY/SYNOVECTOMY, MAJOR 07/06/2005 right LOWER LEG TENDON TRANSFER, DEEP 08/14/2008 TRANSFER OR TRANSPLANT SINGLE TENDON LEG DEEP performed by LAVERNE LAU at [place] [facility] MASTECTOMY, PARTIAL Left 08/20/2021 MASTECTOMY PARTIAL performed by Roxi Platt MD at OR [facility] MISCELLANEOUS ORDER ([facility] ONLY) Right 07/12/2015 Repair ankle tendon tear--Barter MOBILE DXA 07/04/2009 Lumbar T +2.1, Femur T -0,.3, low/moderate risk RADIATION THERAPY Left completed 11/11/21 20 treatments RELEASE OF LOWER LEG TENDON 10/01/2009 TENOLYSIS SINGLE LEG OR ANKLE performed by LAVERNE LAU at OR [facility] REMOVAL OF OVARY/OVIDUCT(S) bilateral REMOVE CATARACT, INSERT LENS PROSTH 09/09/2010 right REMOVE CATARACT, INSERT LENS PROSTH 09/23/2010 left REMOVE TONSILS & ADENOIDS, UNDER 12 REVISE UPPER EYELID Bilateral 06/26/2020 SACROILIAC JOINT INJECT W/GUIDANCE 02/17/2023 INJECTION SACROILIAC JOINT performed by Bethel Bliss DO at OR [facility] SACROILIAC JOINT INJECT W/GUIDANCE Bilateral 12/10/2023 INJECTION SACROILIAC JOINT performed by Fabian Bhagat DO at OR [facility] TOTAL HYSTERECTOMY with BSO for fibroids and cysts on ovaries and e'osis US GUIDED BREAST BIOPSY LEFT Left 07/10/2021 Invasive ductal carcinoma, histologic grade 3 Review of patient's allergies indicates: Allergen Reactions Esomeprazole migraine headache nexium Other Reaction(s): HEADACHES, Not available Gemtesa [Vibegron] Anaphylaxis Hydrocodone Itching Other Reaction(s): HIVES Exgest La [Ppa-Gg Cr] Other (Please comment) Raises blood pressure and experiences heart palpatations. Nitrofurantoin Monohyd Macro Hives Avelox [Moxifloxacin Hydrochloride] "patient states her pharmacist told her not to take this med" Ciprofloxacin Other (Please comment) Caused tendon tears Other Reaction(s): Not available, Tendon Tears Dilaudid [Hydromorphone Hcl] Nausea/vomiting Hydromorphone Other Reaction(s): Vomiting Metronidazole Hives and Unknown Other Reaction(s): Not available Moxifloxacin Unknown Other Reaction(s): Not available, UNKNOWN Nickel Rash Nitrofurantoin Other Reaction(s): HIVES, Not available Ozempic (0.25 Or 0.5 Mg-Dose) [Semaglutide(0.25 Or 0.5mg-Dos)] Nausea, diarrhea, rash Phenylpropanolamine Hcl Exgest LA--heart palpitations/side effect Scopolamine Other (Please comment) "it dehydrates me" Sulfa Antibiotics Hives and Nausea/vomiting Other reaction(s): sick to stomach Terazol [Terconazole] hives Terconazole Unknown Fluconazole Hives Current Outpatient Medications Medication Sig Dispense Refill WOMENS MULTIVITAMIN PLUS PO TABS one daily Magnesium Oxide 400 MG Capsule Take 1 Capsule by mouth in the morning. Calcium Glycerophosphate 340 (65-50) MG (CA-P) TABS Take by mouth 1 Tablet daily . NATURAL SUPPLEMENT Take by mouth daily. Whole daniela seeds, 1 scoop daily latanoprost (XALATAN) 0.005 % ophthalmic solution Instill 1 Drop into both eyes at bedtime. Loratadine 10 MG Oral Capsule Take 1 Capsule by mouth in the morning. Polyethyl Glycol-Propyl Glycol 0.4-0.3 % Ophthalmic Solution Instill into eye as needed for Dry eyes. CPAP once. Vitamin D3 25 MCG (1000 UT) Oral Tablet (Vitamin D3) Take 1 Tablet by mouth in the morning. high fiber LIQD Take by mouth. High Fiber packet once a day Warfarin Sodium 2 MG Oral Tablet (Coumadin) TAKE 4 MG (2 TABLETS) ON WEDNESDAYS TAKE 3 MG (1.5 TABLETS) ALL OTHER DAYS OR DIRECTED BY ANTICOAGULATION CLINIC 140 Tablet 3 Fluticasone Propionate 50 MCG/ACT Nasal Suspension (Flonase) SPRAY 2 SPRAYS INTO EACH NOSTRIL EVERYDAY 48 mL 2 Levothyroxine Sodium 50 MCG Oral Tablet (Levoxyl) TAKE 1 TABLET BY MOUTH EVERY DAY 90 Tablet 2 Ezetimibe 10 MG Oral Tablet (Zetia) TAKE 1 TABLET BY MOUTH EVERY DAY 90 Tablet 2 Montelukast Sodium 10 MG Oral Tablet (Singulair) TAKE 1 TABLET BY MOUTH EVERY DAY 90 Tablet 2 Citalopram Hydrobromide 10 MG Oral Tablet (CeleXA) TAKE 1 TABLET BY MOUTH EVERY DAY 90 Tablet 2 Spironolactone 25 MG Oral Tablet (Aldactone) TAKE 1 TABLET BY MOUTH EVERY DAY 90 Tablet 2 Pramipexole Dihydrochloride 0.125 MG Oral Tablet (Mirapex) TAKE 1 TABLET BY MOUTH 90 MINUTES PRIOR TO TYPICAL ONSET OF RESTLESS LEG SYMPTOMS 90 Tablet 3 Klor-Con M10 10 MEQ Oral Tablet Extended Release (potassium chloride ER) TAKE 1 TABLET BY MOUTH EVERY DAY IN THE MORNING 90 Tablet 3 Torsemide 20 MG Oral Tablet (Demadex) TAKE 1 TABLET BY MOUTH EVERY DAY IN THE MORNING 90 Tablet 3 Repatha SureClick 140 MG/ML Subcutaneous Solution Auto-injector (evolocumab) Inject 140 mg (1 pen) under the skin every 14 days. Remove from refrigerator 30 minutes prior to injection. 6 mL 3 Pantoprazole Sodium 40 MG Oral Tablet Delayed Release (Protonix) TAKE 1 TABLET BY MOUTH ONCE DAILY 30 MINUTES BEFORE THE FIRST MEAL OF THE DAY 90 Tablet 2 Super B-50 Complex Oral Capsule Take 1 Capsule by mouth every morning. Metoprolol Succinate ER 25 MG Oral Tablet Extended Release 24 Hour (Toprol XL) Take 1 Tablet by mouth in the morning and 1 Tablet before bedtime. 180 Tablet 3 Enoxaparin Sodium 100 MG/ML Injection Solution Prefilled Syringe (Lovenox) Inject 100 mg under the skin in the morning and 100 mg before bedtime. As directed by anticoagulation clinic for bridging instructions. Folic Acid 800 MCG Oral Tablet Take 1 Tablet by mouth in the morning. Naltrexone HCl 50 MG Oral Tablet (Revia) Take 1/2 tab by mouth once a day for 1 week then take 1/2 tab twice a day (morning & late afternoon) (Patient not taking: Reported on 04/17/2024) 30 Tablet3 Metamucil Fiber Oral Tablet Chewable Take by mouth. (Patient not taking: Reported on 05/31/2024) methylPREDNISolone 4 MG Oral Tablet Therapy Pack (Medrol Dosepack) follow package directions (Patient not taking: Reported on 05/31/2024) 21 Tablet 0 Famotidine 20 MG Oral Tablet (Pepcid) Take 1 tablet by mouth every 12 hours as needed for stomach upset while taking steroid therapy. (Patient not taking: Reported on 05/31/2024) 20 Tablet 0 Current Facility-Administered Medications Medication Dose Route Frequency Provider Last Rate Last Admin Hylan (Synvisc) inj 16 mg 16 mg Intra-Articular Q Week Herve Valera PA-C 16 mg at 01/20/24 1150 OBJECTIVE/PHYSICAL EXAMINATION: BP 118/68 | Pulse 82 | Wt 99.3 kg (219 lb) | SpO2 94% | BMI 40.71 kg/m | BSA 2.08 m General: No acute distress. A+Ox3. HEENT: Normocephalic. Atraumatic. PERRL. EOMI. Conjunctiva and sclera clear. NECK: No carotid bruits. No JVD. Carotid upstrokes are brisk. Heart: RRR. S1 and S2 noted. No murmur. No rubs or gallops. PMI non displaced. Lungs: Clear to auscultation. No wheezes.No rhonchi. No rales. Abdomen: Normal bowel sounds. Soft. Nontender. No masses or organomegaly. No abdominal bruits. Extremities: 1-2+ edema B/L. Non pitting. Varicosities noted. No clubbing or cyanosis. Pulses: radial=2/4, posterior tibial=2/4, dorsalis pedis = 2/4. NEURO: No focal deficits. PSYCH: Appropriate affect and insight. DATA Nuclear lexiscan stress test report reviewed dated February 2024 Interpretation Summary Normal Lexiscan myocardial perfusion imaging study without evidence of inducible ischemia, or myocardial scar. Gated SPECT images reveals normal myocardial thickening and wall motion. The LV ejection fraction is calculated at >70%. Echo report reviewed dated January 2024: Interpretation Summary The examination is adequate to evaluate the referral indication. The left ventricular cavity size is normal. The LV wall thickness is mildly increased (concentric). The left ventricular wall motion is normal. The qualitative LV ejection fraction is 55-59% (normal). The left ventricular diastolic function is mildly abnormal (grade I). The mitral valve leaflets thickness is mildly increased. There is mild mitral valve prolapse present. There is trace mitral insufficiency There is no evidence of pulmonary hypertension. ZIO report reviewed dated December 2023: CONCLUSIONS: Duration: 12 days, 12 hours Patient had a min HR of 53 bpm, max HR of 164 bpm, and avg HR of 75 bpm. Predominant underlying rhythm was Sinus Rhythm. 3 Ventricular Tachycardia runs occurred, the run with the fastest interval lasting 4 beats with a max rate of 164 bpm, the longest lasting 9 beats with an avg rate of 126 bpm. 3 S upraventricular Tachycardia runs occurred, the run with the fastest interval lasting 4 beats with a max rate of 119 bpm, the longest lasting 14 beats with an avg rate of 111 bpm. Isolated SVEs were occasional (2.4%, 38255), and no SVE Couplets or SVE Triplets were present. Isolated VEs were occasional (4.5%, 44680), VE Couplets were rare (<1.0%, 1731), and VE Triplets were rare (<1.0%, 30).Ventricular Trigeminy was present. Frequent symptoms reported including 69 triggered events and 14 diary entries. Symptomatic episodespredominantly correlate with sensed ventricular ectopy. Occasionally with sinus tachycardia and supraventricular ectopy. EKG 01/05/24 Sinus rhythm with Premature supraventricular complexes Nonspecific ST abnormality Abnormal ECG Ventricular Rate: 62 Echocardiogram report reviewed dated February 2023: Interpretation Summary The examination is adequate to evaluate the referral indication. The left ventricular cavity size is normal. The LV wall thickness is mildly increased (concentric). The left ventricular wall motion is normal. The qualitative LV ejection fraction is 60-64% (normal). The left ventricular diastolic function is mildly abnormal (grade I). Mild aortic valve sclerosis is present. The mitral valve leaflets thickness is moderately increased. There is mild mitral valve prolapse present. There is trace mitral insufficiency EKG performed January 2023: Normal sinus rhythm at 61 beats per minute Normal EKG Compared with prior EKG in December 2021, nonspecific T-wave abnormalities no longer evident in lateral leads. Echo report reviewed dated January 02, 2022: Interpretation Summary The examination is adequate to evaluate the referral indication. The left ventricular cavity size is normal. The LV wall thickness is mildly increased (concentric). The left ventricular wall motion is normal. The qualitative LV ejection fraction is 55-59% (normal). The left ventricular diastolic function is mildly abnormal (grade I). The left atrium is mildly enlarged (35-41 ml/m^2). Mild aortic valve sclerosis is present. The mitral valve leaflets thickness is mildly increased. There is mild mitral valve prolapse present. Mitral stenosis is absent. Mild secondary mitral regurgitation is present. There is no evidence of pulmonary hypertension. The inferior vena cava is normal sized. EKG performed December 2021: Normal sinus rhythm Nonspecific ST and T wave abnormality Abnormal ECG When compared with ECG of 24-JUL-2021 11:34, Nonspecific T wave abnormality now evident in Lateral leads EKG reviewed from Jul 2021: Sinus bradycardia Otherwise normal ECG When compared with ECG of 05-DEC-2019 13:08, No significant change was found Echo report reviewed dated April 2020: Interpretation Summary The primary indication after review was deemed appropriate and the examination was performed. Compared to last available study, there has been no interval change. Normal LV chamber size and wall thickness. Normal LV systolic function without regional wall motion abnormality, EF 55 to 60%. Grade 1 diastolic dysfunction. There is mild mitral valve prolapse present. Mitral stenosis is absent. Mild secondary mitral regurgitation is present. Latest Reference Range & Units 01/19/24 08:26 Triglycerides <=174 mg/dL 147 Cholesterol <200 mg/dL 240 (H) Non-HDL Cholesterol <=159 mg/dL 179 (H) HDL Cholesterol >49 mg/dL 61 LDL Cholesterol <=129 mg/dL 150 (H) (H): Data is abnormally high ASSESSMENT/PLAN: 78 year old female Dyspnea on exertion -improved with titration of metoprolol -we reviewed all her recent cardiac testing which has been essentially unrevealing. -KEVIN was without concerning arrhythmias. She was symptomatic with sinus tach and ectopy -negative nuclear stress testing and echo with preserved EF, no significant valvular disease, gradeI diastolic dysfunction, and no pulm hypertension -she does have edema and some of her symptoms may be related to ongoing volume overload 2. Mitral valve prolapse --mild - stable 3. HTN, goal below 140/90 -At target. Continue Spironolactone and Atenolol 4. Dyslipidemia, goal LDL below 100 -Continue Zetia and PCSK9 - due for repeat lipids in the fall 5. History of Pulmonary embolism and COVID -Continue warfarin, reports compliance -Continued management by [facility] coag. 6. Diastolic HF - continue diuretics -patient appears euvolemic. She thinks her abdomen is "full of fluid" - US ordered to R/O ascites. 7. Edema/venous insufficiency -Vascular referral to [place] as second opinion per patient request The patient is to continue all current medications as listed above. No changes were made at today'svisit. CHF tools discussed including daily weights, salt/sodium/fluid restriction, and use of diuretic protocol. Patient is being evaluated in the cardiology office for ongoing care/risk management for HTN; CHF. I spent a total of 45 minutes on the date of service in preparation, delivery, and documentation ofthe care provided to Linette Trujillo excluding any time spent in the performance of separatelybilled services. The patient agrees to the above plan and will call with additional questions or concerns. ER with all emergencies advised. Follow-up: Return in about 6 months (around 11/28/2024). | Check-out note: Schedule abd US Schedule vascular surgery ref - Dr. Caro/Maryjane Rankin at [facility] for varicose veins Daylin Diaz PA-C Department of Cardiology This chart was completed in part utilizing [employer] Speech Voice Recognition Software. Grammatical errors, random word insertions, prounoun errors, and incomplete sentences are an occasional consequence of this system due to software limitations, ambient noise, and hardware issues. Any formal questions or concerns about the content, text, or information contained within the body of this dictation should be directly addressed to the provider for clarification. documented in this encounter Nursing Notes * Margaux Nunez CMA - 05/31/2024 10:23 AM EDT Examination Room: 6 Name: Linette Trujillo Date of : (1945) Reason for Visit: 6 Interim Hospitalization(s): none Problems/Concerns: denied Chest Pain/SOB: denied My [facility] is a way you can talk to your provider online through e-mail. Would you like to sign up? I can activate it for you? ALREADY ACTIVE Patient was instructed to not get up on the exam table until directed and assisted by their provider; patient is to remain seated in the chair/ wheelchair/ exam table for fall prevention and safety reasons. Patient is aware to have assistance to step down off exam table with personnel. Patient voiced full comprehension of instructions. documented in this encounter Plan of Treatment Upcoming Encounters Date Type Department Care Team (Late st Contact Info) Description 06/09/2024 2:10 PM EDT Hospital Encounter OR [facility], Operating Room [facility] [address] [phone] Fernandez Fajardo MD [address] [place], [place] [id number] [address] 06/09/2024 2:10 PM EDT - 06/09/2024 2:30 PM EDT Surgery OR [facility], Operating Room [facility] [address] [phone] Fernandez Fajardo MD [place] [address] INJECTION SPINE LUMBAR OR SACRAL 06/19/2024 12:50 PM EDT Laboratory Laboratory [address] [place] [phone] [place] [address] 06/21/2024 2:40 PM EDT Office Visit Family Medicine [address] [place] [phone] Danika Chairez PA-C [address] [place] [address] [place] [address] 06/22/2024 10:50 AM EDT Anticoagulation Pharmacy, [address] [place] [address] [place] [address] 06/26/2024 1:00 PM EDT Office Visit Cardiology, [facility] [address] [facility] [place] [address] [facility] Cardiology [address] [place] [address] 07/03/2024 11:40 AM EDT Office Visit Nutrition & Weight Management, [facility] [address] [facility] [place] [address] Tami Garrett PA-C 132 [facility] [place] [address] 08/03/2024 1:00 PM EST Office Visit Orthopaedics [facility] [address] [facility] [place] [address] Herve Valera PA-C [address] [place] [address] 08/07/2024 1:00 PM EST Laboratory Laboratory [address] [place] [phone] [place] [address] 08/10/2024 1:00 PM EST Office Visit Orthopaedics [facility] [address] [facility] [place] [address] Herve Valera PA-C [address] [place] [address] 08/14/2024 2:00 PM EST Office Visit Hematology/Oncolog y [facility] [address] [place] [phone] Jeanette Arellano MD [address] [place] [address] 08/23/2024 2:55 PM EST Office Visit Urogynecology [facility] [address] [facility] [place] [address] Bay Ferreira MD 132 [place] [address] Nurse Zach Hernandez Shayna 132 [place] [address] 08/24/2024 1:00 PM EST Office Visit Orthopaedics [facility] [address] [facility] [place] [address] Herve Valera PA-C [address] [place] [address] 12/11/2024 1:30 PM EDT Office Visit Cardiology, [facility] [address] [facility] [place] [address] Daylin Diaz PA-C [facility] [address] 12/19/2024 1:40 PM EDT Office Visit Family Medicine [address] [place] [phone] Yoav Kong MD [address] [place] [address] [place] [address] 01/09/2025 10:30 AM EDT Office Visit [facility] Disorders Ctr [facility] [address] [place] [phone] Yara Beck CRNP [address] [facility] [place] [phone] Scheduled Procedures Name Priority Associated Diagnoses Date/Ti me INJECTION SPINE LUMBAR OR SACRAL Lumbar radiculopathy 06/09/2024 2:10 PM EDT COLONOSCOPY FLEXIBLE PROXIMAL DIAGNOSTIC Recall Colon cancer screening Scheduled Referrals Name Type Priority Associated Diagnoses Orde r Schedule VASCULAR SURGERY REFERRAL OP Referral Within 30 days (routine) Peripheral venous insufficiency Varicose veins of both lower extremities, unspecified whether complicated Localized edema Ordered: 05/31/2024 Health Maintenance Due Date Last Done Comments Adult Wellness Visit 2010 Depression Screening 03/28/2022 03/28/2021 DTap/Tdap Vaccines (2 - Td or Tdap) 06/14/2022 06/14/2012, 09/27/2005 CKD PHOS USE SMARTSET 75330 06/10/202405/22, 06/23/2022, 07/21/2021, Additional history exists GFR 10/18/2024 04/17/2024, 12/19, 06/10/2023, Additional history exists Albumin/Creatinine Ratio 01/18/2025 024, 12/11/2022, 12/16/2021, Additional history exists CKD HGB USE SMARTSET 09120 04/17/202504/17, 01/07/2024, 06/10/2023, Additional history exists TSH 04/17/2025 04/17/2024, 05/0 09/2023, 01/07/2024, Additional history exists DXA Scan 06/11/2027 06/11/2020, 10/22, 07/04/2009, Additional history exists Pneumococcal Vaccine: 65+ Years Completed 10/15/2014, 04/24/2009, 06/11/1999 Zoster Vaccines Completed 04/07/2020, 08/20, 05/03/2009 COVID-19 Vaccine Completed 05/19/2024, , 01/27/2022, Additional history exists Influenza Vaccine (FLU shot) Completed , 06/05/2023, 06/06/2022, Additional history exists HPV (Gardasil) Vaccine Aged Out No lo nger eligible based on patient's age to complete this topic Hepatitis B Vaccine Aged Out No longe r eligible based on patient's age to complete this topic MENINGOCOCCAL (MENACTRA/MENVEO) Aged Out No longer eligible based on patient's age to complete this topic documented as of this encounter Medical Devices Not on filedocumented as of this encounter Results * US ABDOMEN LIMITED (06/05/2024 1:23 PM EDT) Anatomical Region Laterality Modality Abdomen, Body Ultrasound 06/05/2024 1:52 PM EDT Impressions 06/05/2024 2:12 PM EDT IMPRESSION No ascites. I have personally reviewed this examination and agree with the resident/fellow physician's interpretation. Narrative 06/05/2024 2:12 PM EDT EXAM US ABDOMEN LIMITED-06/05/2024 1:23 pm HISTORY ?ascites TECHNIQUE Targeted ultrasound of the abdomen to evaluate for ascites. COMPARISON U/S abdomen 10/20/2017 FINDINGS No ascites. Procedure Note Brad Diaz MD - 06/05/2024 EXAM US ABDOMEN LIMITED-06/05/2024 1:23 pm HISTORY ?ascites TECHNIQUE Targeted ultrasound of the abdomen to evaluate for ascites. COMPARISON U/S abdomen 10/20/2017 FINDINGS No ascites. IMPRESSION IMPRESSION No ascites. I have personally reviewed this examination and agree with the resident/fellow physician's interpretation. Daylin Diaz PA-C RAD ULTRASOUND documented in this encounter Visit Diagnoses Diagnosis HTN, goal below 140/90- Primary Unspecified essential hypertension Abdominal bloating Flatulence, eructation, and gas pain Other ascites Peripheral venous insufficiency Unspecified venous (peripheral) insufficiency Varicose veins of both lower extremities, unspecified whether complicated Localized edema Edema Statin intolerance Other drug allergy Hyperlipidemia with target LDL less than 70 Other and unspecified hyperlipidemia Abdominal bloating Flatulence, eructation, and gas pain Other ascites Lumbar radiculopathy Thoracic or lumbosacral neuritis or radiculitis, unspecified documented in this encounter Advance Directives Documents on File Type Date Recorded Patient 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
--- OUTSIDE RECORDS SUMMARY | 2024-06-16 04:04 | External Medical Summary | Summary of Care ---
Author Name Unknown Organization [facility] Address [address] [place] [address] Phone [phone] Care Team Providers Care Zumba Instructor Name Role Phone Yoav Kong MD Primary Care Provide r Encounter Details Date Type Department Care Team (Late st Contact Info) Description 06/06/2024 Telephone General Surgery, [facility] [address] [place] [address] Roxi Platt MD [address] [place] [phone] Allergies Active Allergy Reactions Criticality Noted Date [...] as of this encounter (statuses as of 06/07/2024) Medications Medication Sig Dispensed Refills Start Date End Date Status WOMENS MULTIVITAMIN PLUS PO TABS one daily Active Magnesium Oxide 400 MG Capsule Take 1 Capsule by mouth in the morning. 5 Active Calcium Glycerophosphate 340 (65-50) MG (CA-P) TABS Take by mouth 1 Tablet daily . Active NATURAL SUPPLEMENT Take by mouth daily. Whole daniela seeds, 1 scoop daily Active latanoprost (XALATAN) 0.005 % ophthalmic solution Instill 1 Drop into both eyes at bedtime. 0 Active Loratadine 10 MG Oral Capsule Take 1 Capsule by mouth in the morning. Active Polyethyl Glycol-Propyl Glycol 0.4-0.3 % Ophthalmic Solution Instill into eye as needed for Dry eyes. Active CPAP once. Active Vitamin D3 25 MCG (1000 UT) Oral Tablet (Vitamin D3) Take 1 Tablet by mouth in the morning. 2 Active Folic Acid 800 MCG Oral Tablet Take 1 Tablet by mouth in the morning. 2 Active high fiber LIQD Take by mouth. High Fiber packet once a day Active Warfarin Sodium 2 MG Oral Tablet (Coumadin)Indications :History of pulmonary embolism,Factor V Leiden (HCC),Anticoagulation management encounter,group home current use of anticoagulant therapy,Venous thrombosis TAKE 4 MG (2 TABLETS) ON WEDNESDAYS TAKE 3 MG (1.5 TABLETS) ALL OTHER DAYS OR DIRECTED BY ANTICOAGULATION CLINIC 140 Tablet 3 3 Active Fluticasone Propionate 50 MCG/ACT Nasal Suspension (Flonase)Indications: Protracted URI SPRAY 2 SPRAYS INTO EACH NOSTRIL EVERY DAY 48 mL 2 3 Active Levothyroxine Sodium 50 MCG Oral Tablet (Levoxyl)Indications: Hypothyroidism TAKE 1 TABLET BY MOUTH EVERY DAY 90 Tablet 2 4 Active Ezetimibe 10 MG Oral Tablet (Zetia) TAKE 1 TABLET BY MOUTH EVERY DAY 90 Tablet 2 4 Active Montelukast Sodium 10 MG Oral Tablet (Singulair) TAKE 1 TABLET BY MOUTH EVERY DAY 90 Tablet 2 4 Active Citalopram Hydrobromide 10 MG Oral Tablet (CeleXA)Indications:G eneralized anxiety disorder TAKE 1 TABLET BY MOUTH EVERY DAY 90 Tablet 2 4 Active Spironolactone 25 MG Oral Tablet (Aldactone)Indication s:Dyslipidemia, goal LDL below 100,Pulmonary embolus ([facility]),HTN, goal below 130/80,Factor V Leiden ([facility]) TAKE 1 TABLET BY MOUTH EVERY DAY 90 Tablet 2 4 Active Pramipexole Dihydrochloride 0.125 MG Oral Tablet (Mirapex)Indications: Restless legs syndrome (RLS) TAKE 1 TABLET BY MOUTH 90 MINUTES PRIOR TO TYPICAL ONSET OF RESTLESS LEG SYMPTOMS 90 Tablet 3 4 Active Klor-Con M10 10 MEQ Oral Tablet Extended Release (potassium chloride ER)Indications:Edema TAKE 1 TABLET BY MOUTH EVERY DAY IN THE MORNING 90 Tablet 3 4 Active Torsemide 20 MG Oral Tablet (Demadex)Indications: Diastolic dysfunction TAKE 1 TABLET BY MOUTH EVERY DAY IN THE MORNING 90 Tablet 3 4 Active Naltrexone HCl 50 MG Oral Tablet (Revia) Take 1/2 tab by mouth once a day for 1 week then take 1/2 tab twice a day (morning & late afternoon) 30 Tablet 3 4 Active Additional Information Patient not taking.Reported on 04/17/2024 Metamucil Fiber Oral Tablet Chewable Take by mouth. Activ e Pantoprazole Sodium 40 MG Oral Tablet Delayed Release (Protonix)Indications :Gastroesophageal reflux disease without esophagitis TAKE 1 TABLET BY MOUTH ONCE DAILY 30 MINUTES BEFORE THE FIRST MEAL OF THE DAY 90 Tablet 2 4 Active Super B-50 Complex Oral Capsule Take 1 Capsule by mouth every morning. Active Metoprolol Succinate ER 25 MG Oral Tablet Extended Release 24 Hour (Toprol XL)Indications:Palpit ations Take 1 Tablet by mouth in the morning and 1 Tablet before bedtime. 180 Tablet 3 4 Active methylPREDNISolone 4 MG Oral Tablet Therapy Pack (Medrol Dosepack) follow package directions 21 Tablet 4 Active Additional Information Patient not taking.Reported on 05/31/2024 Famotidine 20 MG Oral Tablet (Pepcid) Take 1 tablet by mouth every 12 hours as needed for stomach upset while taking steroid therapy. 20 Tablet 4 Active Additional Information Patient not taking.Reported on 05/31/2024 Enoxaparin Sodium 100 MG/ML Injection Solution Prefilled Syringe (Lovenox) Inject 100 mg under the skin in the morning and 100 mg before bedtime. As directed by anticoagulation clinic for bridging instructions.. 4 Active Enoxaparin Sodium 100 MG/ML Injection Solution Prefilled Syringe (Lovenox) Inject 100 mg under the skin in the morning and 100 mg before bedtime. As directed by anticoagulation clinic for bridging instructions. Active Repatha SureClick 140 MG/ML Subcutaneous Solution Auto-injector (evolocumab) Inject 140 mg (1 pen) under the skin every 14 days. 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 COMMON MIGRAINE WITHOUT MENTION OF INTRACTABLE M IGRAINE 01/01/2003 GENERALIZED ANXIETY DIS 12/19/2001 TEMPOROMANDIBULAR JOINT DISORDERS, UNSPECIFIED Mitral valve disorder Gastroesophageal reflux disease without esophagi tis Other allergic rhinitis Overview: ICD-10 update of inactive term Mitral valve prolapse documented as of this encounter (statuses as of 06/07/2024) Resolved Problems Problem Noted Date Diagnosed Date [...] as of this encounter (statuses as of 06/07/2024) Immunizations Name Administration Dates Next Due COVID-19 mRNA, LNP-s, No Pre serve, 2-Dose Series (Moderna) 01/27/2022,07/15/2021,11/29/2020,10/21 COVID-19, MRNA-LNP, 23-24, P F, 30 MCG/0.3 mL, 12 YRS AND ABOVE, IM (PFIZER-Comirnaty) 08/02/2023 Pneumococcal Conjugate Vacc, 13 Valent (Prevnar) 10/15/2014 Pneumococcal Polysaccharide PPV23 (Pneumovax) 04/24/2009,06/11/1999 Season Influenza, Quad, PF, Adjuvanted, 65+ Yrs, IM (FLUAD) 05/28/2020 Seasonal Influenza, PF, 6 M & above, IM , (FluLaval or Fluzone) 06/26/2019,06/07/2018 Seasonal Influenza, Quadriva lent Hd (Fluzone Hd) 06/05/2023,06/06/2022,06/10/2021 Seasonal Influenza, Quadriva lent, No Preserve, IM 06/07/2017,06/22/2016,06/17/2015 Seasonal Influenza, Trivalen t, (IIV3), with Preserv, (Fluzone) 06/06/2014,06/22/2013,06/02/2012,05/22,06/10/2010,06/13/2009,07/09/20 08,07/04/2007,07/09/2005,06/23/2004,1 ,07/12/2002,08/15/2001 07/12/2003 TD - Tetanus/Diptheria (ADULT) 09/27/2005 TDAP (age 10 and older)(Boostrix) 06/14/2012 Varicella Zoster Vaccine (Adult) 05/03/2009 Zoster Vaccine Recombinant (Shingrix) 04/07/2020 ,09/01/2019 documented as of this encounter Social History Tobacco Use Types Packs/Day Years Used Date Smoking Tobacco: Never Smokeless Tobacco: Never Alcohol Use Standard Drinks/Week Comments Yes 0 [...] on file documented as of this encounter Miscellaneous Notes * Telephone Encounter - Wendy Douglass OSA - 06/07/2024 1:03 PM EDT Scheduled on 06/07/24. * Telephone Encounter - Roxi Platt MD - 06/06/2024 2:56 PM EDT Mammo right diag ordered Could you help her schedule please? documented in this encounter Plan of Treatment Upcoming Encounters Date Type Department Care Team (Late st Contact Info) Description 06/07/2024 1:30 PM EDT Imaging Radiology [address] [place] [address] Abnormal mammogram 06/08/2024 12:00 PM EDT [facility] [address] [place] [phone] Ortiz Hernadnez [address] [place] [address] 06/08/2024 1:45 PM EDT Hospital Encounter OR [facility], Operating Room [facility] [address] [place] [phone] Fabian Bhagat, [address] [place] [address] 06/08/2024 1:45 PM EDT - 06/08/2024 2:10 PM EDT Surgery OR [facility], Operating Room [facility] [address] [place] [phone] Fabian Bhagat, [address] [place] [phone] INJECTION SPINE LUMBAR OR SACRAL 06/19/2024 12:50 PM EDT Laboratory Laboratory [address] [place] [phone] Ortiz Denney [address] [place] [address] 06/21/2024 2:40 PM EDT Office Visit Family Medicine [address] [place] [phone] Danika Chairez PA-C [address] [place] [address] [place] [address] 06/22/2024 10:50 AM EDT Anticoagulation Pharmacy, [address] [place] [address] [place] [address] 06/26/2024 1:00 PM EDT Office Visit Cardiology, [facility] 132 [facility] [place] [address] [facility] Cardiology [facility] [address] [employer] [place] [address] 07/03/2024 11:40 AM EDT Office Visit Nutrition & Weight Management, [facility] 132 [facility] [place] [address] Tami Garrett PA-C 132 [facility] [place] [address] 08/03/2024 1:00 PM EST Office Visit Orthopaedics [facility] 132 [facility] [place] [address] Herve Valera PA-C [address] [place] [address] 08/07/2024 1:00 PM EST Laboratory Laboratory [address] [place] [phone] [place], [address] [place] [address] 08/10/2024 1:00 PM EST Office Visit Orthopaedics [facility] [address] Herve Valera PA-C [address] [place] [address] 08/14/2024 2:00 PM EST Office Visit Hematology/[facility] [address] [place] [address] Jeanette Arellano MD [address] [place] [address] 08/23/2024 2:55 PM EST Office Visit Urogynecology [facility] [address] [place] [address] Bay Ferreira MD [address] [place] [address] HernandezNurse Zach williamson [facility] [address] [place] [address] 08/24/2024 1:00 PM EST Office Visit Orthopaedics [facility] 132 [facility] [place] [address] Hreve Valera PA-C [address] [place] [address] 12/11/2024 1:30 PM EDT Office Visit Cardiology, [facility] 132 [facility] [place] [address] Daylin Diaz PA-C 132 [facility] [place] [address] 12/19/2024 1:40 PM EDT Office Visit Family Medicine [address] [phone] Yoav Kong MD [address] [place] [address] [place] [address] 01/09/2025 10:30 AM EDT Office Visit Sleep Disorders Ctr [facility] 132 [facility] [place] [phone] Yara Beck CRNP [address] [place] [address] Scheduled Orders Name Type Priority Associated Diagnoses Orde r Schedule MAMMOGRAM DIAGNOSTIC ELIZABETH RIGHT Medical Imaging Routine Abnormal mammogram Expected: 06/07/2024 (Approximate), Expires: 07/06/2025 Scheduled Procedures Name Priority Associated Diagnoses Date/Ti me INJECTION SPINE LUMBAR OR SACRAL Lumbar radiculopathy 06/08/2024 1:45 PM EDT COLONOSCOPY FLEXIBLE PROXIMAL DIAGNOSTIC Recall Colon cancer screening Health Maintenance Due Date Last Done Comments Adult Wellness Visit 2010 Depression Screening 03/28/2022 03/28/2021 DTap/Tdap Vaccines (2 - Td or Tdap) 06/14/2022 06/14/2012, 09/27/2005 CKD PHOS USE SMARTSET 38112 06/10/202405/22, 06/23/2022, 07/21/2021, Additional history exists GFR 10/18/2024 04/17/2024, 12/19, 06/10/2023, Additional history exists Albumin/Creatinine Ratio 01/18/2025 024, 12/11/2022, 12/16/2021, Additional history exists CKD HGB USE SMARTSET 65709 04/17/202504/17, 01/07/2024, 06/10/2023, Additional history exists TSH [...] Not on filedocumented as of this encounter Visit Diagnoses Diagnosis Abnormal mammogram- Primary Abnormal mammogram, unspecified Abnormal mammogram Abnormal mammogram, unspecified Lumbar radiculopathy Thoracic or lumbosacral neuritis or radiculitis, unspecified documented in this encounter Advance Directives Documents on File Type Date Recorded Patient Feltmaker Expl anation Advance Directives and Livmarb[place] g Will 05/20/2016 ADVANCE DIRECTIVE Power of Credit Reporter 05/20/2016 POWER OF A TTORNEY * Full Code (Latest Code Status on File) Date Activated Date Inactivated Comments 08/14/2008 10:37 AM 08/14/2008 10:38 AM Care Teams Zumba Instructor Relationship Specialty Start Date End Date Yoav Kong MD [address] [place] [address] [place] [address] PCP - General Family Medicine 04/09/14 documented as of this encounter
--- OUTSIDE RECORDS SUMMARY | 2024-06-16 04:04 | External Medical Summary ---
Author Name Unknown Address Unknown Organization [facility] [place] [facility] - [address] [place] [address] Laboratory Report Ordering Provider Test Date Status MG RIVERADONOVAN 06/09/2024 12:10:30 Final Warfarin Therapy
INR: 2 .0-3.0 conventional anticoagulation
INR: 2.5- 3.5 high intensity anticoagulation Observation Date Value Abnormality Reference (Units ) Status PT 06/09/2024 12:10:30 13.0 11.6-15.2 (seconds) Final INR 06/09/2024 12:10:30 1.0 0.8-1.2 Final Performing Location [facility] [facility] 0 - [address] [place] [address]
--- OUTSIDE RECORDS SUMMARY | 2024-06-16 04:04 | External Medical Summary | Summary of Care ---
Author Name Unknown Organization [facility] Address [address] [place] [address] Phone [phone] Care Team Providers Care Donor Recruiter Name Role Phone Yoav Kong MD Primary Care Provide r Reason for Visit * Reason Comments Outpatient Testing Encounter Details Date Type Department Care Team (Late st Contact Info) Description 06/09/2024 12:00 PM EDT Laboratory Laboratory, 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 Allergies Active Allergy Reactions Criticality Noted Date [...] as of this encounter (statuses as of 06/09/2024) Medications Medication Sig Dispensed Refills Start Date [...] of pulmonary embolism,Factor V Leiden (HCC),Anticoagulation management encounter,skilled nursing current use of anticoagulant therapy,Venous thrombosis TAKE [...] (Aldactone)Indication s:Dyslipidemia, goal LDL below 100,Pulmonary embolus (HCC),HTN, goal [...] Additional Information Patient not taking.Reported on 05/31/2024 Repatha SureClick 140 MG/ML Subcutaneous Solution Auto-injector (evolocumab) Inject 140 mg (1 pen) under the skin every 14 days. 6 mL 3 4 Active Enoxaparin Sodium 100 MG/ML Injection Solution Prefilled Syringe (Lovenox) Inject 100 mg under the skin in the morning and 100 mg before bedtime. As directed by anticoagulation clinic for bridging instructions. 4 mL 4 Active Hospital, Clinic, or Other Facility Administered Medication Ordered Dose Route Frequency Start Date End Date Status Hylan (Synvisc) inj 16 mgIndications:Primary osteoarthritis of right knee 16 mg IX QWEEK 07/08/2023 Active documented as of this encounter (statuses as of 06/09/2024) Active Problems Problem Noted Date Diagnosed Date [...] kidney disease 07/29/2020 Overview: Per CKD protocol Restorationism or spiritual beliefs affecting medical care 05/25/2019 [...] pulmonary embolism 12/20/2011 Anticoagulation management encounter 12/14/2011 skilled nursing current use of anticoagulant therapy 0 12/14/2011 DYSLIPIDEMIA, GOAL LDL BELOW 100 08/29/2009 Overview: Per Lipid Taxonomy. COMMON MIGRAINE WITHOUT MENTION OF INTRACTABLE M IGRAINE 01/01/2003 GENERALIZED ANXIETY DIS 12/19/2001 TEMPOROMANDIBULAR JOINT DISORDERS, UNSPECIFIED Mitral valve disorder Gastroesophageal reflux disease without esophagi tis Other allergic rhinitis Overview: ICD-10 update of inactive term Mitral valve prolapse documented as of this encounter (statuses as of 06/09/2024) Resolved Problems Problem Noted Date Diagnosed Date [...] as of this encounter (statuses as of 06/09/2024) Immunizations Name Administration Dates Next Due COVID-19 [...] on file documented as of this encounter Plan of Treatment Upcoming Encounters Date Type Department Care Team (Late st Contact Info) Description 06/19/2024 12:50 PM EDT Laboratory Laboratory [address] [place] [phone] [place], Lab [address] [place] [address] 06/21/2024 2:40 PM EDT Office Visit Family Medicine [address] [place] [phone] Danika Chairez PA-C [address] [place] [address] [place] [address] 06/22/2024 10:50 AM EDT Anticoagulation Pharmacy, [address] [place] [address] [facility] [address] [place] [address] 06/26/2024 1:00 PM EDT Office Visit Cardiology, [address] [place] [address] [facility] Cardiology [place] [address] [place] [phone] 07/03/2024 11:40 AM EDT Office Visit Nutrition & Weight Management, [facility] [address] [place] [address] Tami Garrett PA-C [address] [place] [phone] 07/18/2024 11:00 AM EDT Scheduled Telephone Interventional Pain Center, [facility] [address] [place] [address] Hernandez, Nurse Phone Call Interventional Pain [place] [address] [place] [address] 08/03/2024 1:00 PM EST Office Visit Orthopaedics [facility] [place] [address] Herve Valera PA-C [address] [place] [address] 08/07/2024 1:00 PM EST Laboratory Laboratory [address] [place] [phone] [address] [place] [address] 08/10/2024 1:00 PM EST Office Visit Orthopaedics [facility] [address] [place] [address] Herve Valera PA-C [address] [place] [address] 08/14/2024 2:00 PM EST Office Visit Hematology/Oncolog y [facility] [address] [place] [phone] Jeanette Arellano MD [address] [place] [address] 08/23/2024 2:55 PM EST Office Visit Urogynecology [facility] [address] [place] [address] Bay Ferreira MD [address] [place] [address] Nurse Zach Hernandez Shayna 132 [facility] [place] [address] 08/24/2024 1:00 PM EST [facility] 132 [facility] [place] [address] Herve Valera PA-C [address] [place] [address] 12/11/2024 1:30 PM EDT [facility] 132 [facility] [place] [address] Daylin Diaz PA-C [facility] [place] [address] 12/19/2024 1:40 PM EDT Office Visit Family Medicine [address] [place] [phone] Yoav Kong MD [address] [place] [address] [place] [address] 01/09/2025 10:30 AM EDT Office Visit Sleep Disorders Ctr [place] 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 06/09/2024 12:10 PM EDT Scheduled Procedures Name Priority Associated Diagnoses Date/Ti me INJECTION SPINE LUMBAR OR SACRAL Lumbar radiculopathy 06/09/2024 2:10 PM EDT COLONOSCOPY FLEXIBLE PROXIMAL DIAGNOSTIC Recall Colon cancer screening Health Maintenance Due Date Last Done Comments Adult Wellness Visit 2010 Depression Screening 03/28/2022 03/28/2021 DTap/Tdap Vaccines (2 - Td or Tdap) 06/14/2022 06/14/2012, 09/27/2005 CKD PHOS USE SMARTSET 49568 06/10/202405/22, 06/23/2022, 07/21/2021, Additional history exists GFR 10/18/2024 04/17/2024, 12/19, 06/10/2023, Additional history exists Albumin/Creatinine Ratio 01/18/2025 024, 12/11/2022, 12/16/2021, Additional history exists CKD HGB USE SMARTSET 73048 04/17/202504/17, 01/07/2024, 06/10/2023, Additional history exists TSH [...] as of this encounter Visit Diagnoses Diagnosis History of pulmonary embolism Personal history of pulmonary embolism Factor V Leiden (HCC) Primary hypercoagulable state Anticoagulation management encounter Encounter for therapeutic drug monitoring skilled nursing current use of anticoagulant therapy documented in this encounter Advance Directives Documents on File Type Date Recorded 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
--- OUTSIDE RECORDS SUMMARY | 2024-06-16 04:04 | External Medical Summary | Summary of Care ---
Author Name Unknown Organization [facility] Address [address] [facility] [place] [address] Phone [phone] Care Team Providers Care Induction Brazer Name Role Phone Yoav Kong MD Primary Care Provide r Reason for Visit * Auth/Cert Specialty Diagnoses / Procedures Referred By Contac t Referred To Contact Diagnoses Lumbar radiculopathy Lumbar radiculopathy [M54.16] Procedures INJECT DX/THER SUBSTANCE INTERLAMINAR LUMBAR/SACRAL W IMAGE GUIDE INJECTION SPINE LUMBAR OR SACRAL Fabian Bhagat DO [address] [place] [phone] Or [facility] [address] [place] [phone] Referral ID Status Reason Start Date Expiration Date Visits Re quested Visits Authorized [id number] Encounter Details Date Type Department Care Team (Late st Contact Info) Description 06/09/2024 1:20 PM EDT - 06/09/2024 3:02 PM EDT Hospital Encounter [facility], Operating Room [facility] [address] [place] [phone] Fernandez Fajardo MD [address] [facility] [place] [address] Discharge Disposition: Home - Self Care Allergies Active Allergy Reactions Criticality Noted Date [...] as of this encounter (statuses as of 06/10/2024) Medications Medication Sig Dispensed Refills Start Date [...] Active Warfarin Sodium 2 MG Oral Tablet (Coumadin)Indication s:History of pulmonary embolism,Factor V Leiden (HCC),Anticoagulatio n management encounter,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 therapy,Venous thrombosis TAKE 4 MG (2 TABLETS) ON WEDNESDAYS TAKE 3 MG (1.5 TABLETS) ALL OTHER DAYS OR DIRECTED BY ANTICOAGULATION CLINIC 140 Tablet 3 3 Active Fluticasone Propionate 50 MCG/ACT Nasal Suspension (Flonase)Indications :Protracted URI SPRAY 2 SPRAYS INTO EACH NOSTRIL EVERY DAY 48 mL 2 3 Active Levothyroxine Sodium 50 MCG Oral Tablet (Levoxyl)Indications :Hypothyroidism TAKE 1 TABLET BY MOUTH EVERY DAY 90 Tablet 2 4 Active Ezetimibe 10 MG Oral Tablet (Zetia) TAKE 1 TABLET BY MOUTH EVERY DAY 90 Tablet 2 4 Active Montelukast Sodium 10 MG Oral Tablet (Singulair) TAKE 1 TABLET BY MOUTH EVERY DAY 90 Tablet 2 4 Active Citalopram Hydrobromide 10 MG Oral Tablet (CeleXA)Indications: Generalized anxiety disorder TAKE 1 TABLET BY MOUTH EVERY DAY 90 Tablet 2 4 Active Spironolactone 25 MG Oral Tablet (Aldactone)Indicatio ns:Dyslipidemia, goal LDL below 100,Pulmonary embolus (HCC),HTN, goal below 130/80,Factor V Leiden (HCC) TAKE 1 TABLET BY MOUTH EVERY DAY 90 Tablet 2 4 Active Pramipexole Dihydrochloride 0.125 MG Oral Tablet (Mirapex)Indications :Restless legs syndrome (RLS) TAKE 1 TABLET BY MOUTH 90 MINUTES PRIOR TO TYPICAL ONSET OF RESTLESS LEG SYMPTOMS 90 Tablet 3 4 Active Klor-Con M10 10 MEQ Oral Tablet Extended Release (potassium chloride ER)Indications:Edema TAKE 1 TABLET BY MOUTH EVERY DAY IN THE MORNING 90 Tablet 3 4 Active Torsemide 20 MG Oral Tablet (Demadex)Indications :Diastolic dysfunction TAKE 1 TABLET BY MOUTH EVERY DAY IN THE MORNING 90 Tablet 3 4 Active Naltrexone HCl 50 MG Oral Tablet (Revia) Take 1/2 tab by mouth once a day for 1 week then take 1/2 tab twice a day (morning & late afternoon) 30 Tablet 3 4 Active Additional Information Patient not taking.Reported on 04/17/2024 Pantoprazole Sodium 40 MG Oral Tablet Delayed Release (Protonix)Indication s:Gastroesophageal reflux disease without esophagitis TAKE 1 TABLET BY MOUTH ONCE DAILY 30 MINUTES BEFORE THE FIRST MEAL OF THE DAY 90 Tablet 2 4 Active Super B-50 Complex Oral Capsule Take 1 Capsule by mouth every morning. Active Metoprolol Succinate ER 25 MG Oral Tablet Extended Release 24 Hour (Toprol XL)Indications:Palpi tations Take 1 Tablet by mouth in the [...] for bridging instructions. 4 mL 4 Active Metamucil Fiber Oral Tablet Chewable Take by mouth. 024 Discontin ued(Patie nt preferenc e/discont inuation) documented as of this encounter (statuses as of 06/10/2024) Active Problems Problem Noted Date Diagnosed Date [...] kidney disease 07/29/2020 Overview: Per CKD protocol Spiritism or spiritual beliefs affecting medical care 05/25/2019 [...] pulmonary embolism 12/20/2011 Anticoagulation management encounter 12/14/2011 [facility] current use of anticoagulant therapy 0 12/14/2011 DYSLIPIDEMIA, GOAL LDL BELOW 100 08/29/2009 Overview: Per Lipid Taxonomy. COMMON MIGRAINE WITHOUT MENTION OF INTRACTABLE M IGRAINE 01/01/2003 GENERALIZED ANXIETY DIS 12/19/2001 TEMPOROMANDIBULAR JOINT DISORDERS, UNSPECIFIED Mitral valve disorder Gastroesophageal reflux disease without esophagi tis Other allergic rhinitis Overview: ICD-10 update of inactive term Mitral valve prolapse documented as of this encounter (statuses as of 06/10/2024) Resolved Problems Problem Noted Date Diagnosed Date [...] as of this encounter (statuses as of 06/10/2024) Immunizations Name Administration Dates Next Due COVID-19 [...] Sign Reading Time Taken Comments Blood Pressure 149/75 06/09/2024 2:56 PM EDT Pulse 81 06/09/2024 2:56 PM EDT Temperature 36.6 C (97.8 F) 06/09/2024 2:32 PM ED T Respiratory Rate 17 06/09/2024 2:56 PM EDT Oxygen Saturation 99% 06/09/2024 2:56 PM EDT Inhaled Oxygen Concentration - - Weight - - Height - - Body Mass Index - - documented in this encounter Discharge Instructions * Discharge Instr - AVS* Fernandez Fajardo MD - 06/09/2024 2:17 PM EDT Discharge Date: 06/09/2024 Check your Patient Education Brochure for further information. If you have any further questions call your physician at [phone]. The information below provides you with the instructions and the list of medications you need to betaking following discharge from the hospital. If you have any questions, please ask before leaving.If you have questions after you leave, you can reach us at the number above. You had the following procedure performed: Epidural Steroid Injection Wound Care: You may shower normally, but be sure to keep the injection site clean and dry. No soaking in a bathfor 48 hours. Activity: You may resume your regular diet as tolerated. Return to normal activities slowly as tolerated. Walking is very important for healing and your rehabilitation. Initially, you should walk at least two to three times daily. Then slowly and gradually increase your distance as your tolerance for physical activity increases. You may go up and down stairs carefully. You may resume home medications. If you received sedation, for the next 24 hours, you should NOT: Drive a vehicle, operate power machinery or power equipment Drink alcoholic beverages, including beer Make important decisions, such as signing contracts, etc. Notify physician for: Temperature greater than 101 degrees F. Increased pain. Calf swelling or tenderness. Drainage or redness of the incision. Chest pain or shortness of breath (and go to the Emergency Department) Date you may return to work or school: N/A documented in this encounter H&P Notes * Fernandez Fajardo MD - 06/09/2024 2:14 PM EDT Linette Trujillo : 1945 Today's date: 06/09/24 Subjective: Chief Complaint: No chief complaint on file. History of Present Illness: Linette Trujillo is a 78 year old year-old female with a past medical history significant for chronic sacroiliac joint pain. At her last visit, we provided a therapeutic bilateral SIJ injection with corticosteroid on 12/10/2023. Patient reports improvement on left side, right side only with minimal improvement. The pain is located in the right buttock and lower back area, and it does not radiate to the leg(s). She describes it as a dull, achy sensation. Aggravating factors include: doing laundry, picking items up. Alleviating factors include: tylenol, ice, reclined positioning. The pain is present 50-75 %of time. Her current pain score is 5/10. Her pain at its least is 0 / 10. Her worst pain is 8 / 10. Does get concurrent pain into her right foot. Impacts the lateral aspect of the foot. Describes thepain as an electrical shock, has been attributed to prior foot surgery. Pain severity is intermittently 9-10/10, typically mild to moderate in nature otherwise. Previously states she had an EMG whichshowed peripheral nerve entrapment, she has been recommended to see us by podiatry. Denies weakness. Denies numbness. Denies bowel or bladder incontinence. Denies symptoms of saddle anesthesia. Denies fevers/chills/night sweats. Denies unintentional weight loss. Review of Systems: A focused 12-pt ROS were of reviewed with the patient including difficulty with sleep, snoring, aspiration history, dysphagia, stomach pain, nausea and vomiting, severe headaches, confusion, open skin lesions or wounds, chest pain, shortness of breath, excessive thirst, somnolence, dysuria, incomplete bladder emptying, easy bruising, recent clotting problems or bleeding, depression or rushed thoughts unless noted previously. Allergies, Medications, Past Medical History, Past Surgical History reviewed and documented in Epic. See detailed report if needed. Pertinent Labs/Test Results: INR Date Value 06/09/2024 1.0 12/14/2011 2.39 (H) Fingerstick INR (INR) Date Value 05/29/2024 2.3 09/30/2020 2.3 No results found for: "CREATININE" Hemoglobin A1C (%) Date Value 06/10/2023 5.5 07/22/2018 5.5 No results found for: "AMPHETAMINE", "BARBITURATES", "BENZODIAZEPINES", "BUPRENORPHINE", "METHADONE", "OPIATES", "OXYCODONE", "PHENCYCLIDINE", "CANNABINOIDS", "TOX SCREEN", "URINE", "TOX SCREEN-SERUM", "TOX SCREEN, URINE" Imaging: MAMMOGRAM DIAGNOSTIC ELIZABETH RIGHT, US BREAST LIMITED RIGHT Result MAMMOGRAM DIAGNOSTIC ELIZABETH RIGHT US BREAST LIMITED RIGHT History Abnormal mammogram Family medical history includes colon cancer in brother. Films Compared Comparison is made to previous studies dated as far back as 2020 Findings MAMMOGRAM DIAGNOSTIC ELIZABETH RIGHT The right breast is heterogeneously dense, which may obscure small masses. The asymmetry is not seen on additional views and dissipates on spot compression imaging. US BREAST LIMITED RIGHT The breast tissue has a heterogeneous background echotexture. At the 6 o'clock, 12 o'clock, and retroareolar breast no cyst, mass, or unexplained architectural distortion is identified. Impression MAMMOGRAM DIAGNOSTIC ELIZABETH RIGHT No mammographic evidence of malignancy. US BREAST LIMITED RIGHT No sonographic evidence of malignancy. BI-RADS Category: 1 - Negative. Recommendation Resume annual screening mammography is recommended for the right breast. Digital breast tomosynthesis was performed. This digital mammogram has been analyzed with the computer aided detection system. This notice contains the results of your recent mammogram, including information about breast density. If your mammogram shows that your breast tissue is dense, you should know that dense breast tissue is a common finding and is not abnormal. Statistics show many women could have dense or highly dense breasts. Dense breast tissue can make it harder to find cancer on a mammogram and may be associated with an increased risk of cancer. This information about the result of your mammogram is given to you to raise your awareness and to inform your conversations with your physician. Together, you can decide which screening options are right for you, based on your mammogram results, individual risk factors or physical examination. A report of your results was sent to your physician. Breast tissue can be either dense or not dense. Dense tissue makes it harder to find breast cancer on a mammogram and also raises the risk of developing breast cancer. Your breast tissue is dense. In some people with dense tissue, other imaging tests in addition to a mammogram may help find cancers. Talk to your healthcare provider about breast density, risks for breast cancer, and your individual situation. This examination was performed at [facility], [address] [place] [id number]. [phone] Objective Physical Exam: Vital Signs: There were no vitals taken for this visit. There is no height or weight on file to calculate BMI. General: No apparent distress. Eyes: pupils equal and round, sclera white, pupils midsize. ENT: mucous membranes moist Resp: Non-labored breathing CV: Extremities warm and well-perfused. Psych: Oriented; affect warm, insight good. Skin: No rashes or lesions appreciated on exposed skin Neuromuscular Exam: TTP over right SIJ and piriformis muscle. Minimal TTP lumbar spine. Facet loading negative bilaterally. Right fabere/sita negative, right fadir negative, right thigh thrust negative, compression positive, distraction negative. SLR positive on the right, negative on the left. Assessment: Linette is a 78 year old year-old female with: Neuropathic pain of right foot (Primary) - PHYSICAL THERAPY REFERRAL OP Spasm of right piriformis muscle - PHYSICAL THERAPY REFERRAL OP Plan: Lumbar ILESI documented in this encounter Nursing Notes * Leslie Sims RN - 06/09/2024 3:00 PM EDT Patient tolerated pain injection well. Ready for discharge to home. * Cari Tsai RN - 06/09/2024 2:51 PM EDT Band aid applied to area. Patient transferred to PACU 11 via wheelchair * Cari Tsai RN - 06/09/2024 2:49 PM EDT Patient tolerating pain management injection well. documented in this encounter OR Notes * OR Surgeon - Fernandez Fajardo MD - 06/09/2024 2:17 PM EDT Procedure Note Lumbar Interlaminar WINNIE Procedure Date: 06/09/2024 Linette Trujillo Date of : 1945 Attending: Sylvain Fajardo M.D. PREOPERATIVE DIAGNOSIS: Lumbar radicular pain POSTOPERATIVE DIAGNOSIS: SAME PROCEDURE PERFORMED: Interlaminar Epidural Steroid Injection at the L4-L5 level ESTIMATED BLOOD LOSS: None SPECIMENS AND DRAINS: None FLUOROSCOPY WAS USED. INDICATIONS FOR PROCEDURE: This is a 79 year old year old female with a clinical picture consistent with the above-mentioned diagnosis, resulting in lumbar radiculopathy. PROCEDURE AND FINDINGS: The patient was greeted in the pre procedure holding area. The risk, benefits and alternatives to the procedure were again reviewed with the patient and written informed consent was placed in the chart. Prior to the procedure a time out was completed, verifying correct patient, procedure, site, positioning, and implants and/or special equipment. The patient was taken to the procedure room and positioned prone on the fluoroscopy table. Then a float nurse film was taken to identify the correct level. The skin was prepped and draped in the usual sterile fashion. The overlying skin and subcutaneous tissue was anesthetized using a 25-guage 1-1/2 inchneedle with 1% buffered lidocaine for a total volume of 2 mls. Then a 20g, 9 cm Tuohy needle was advanced under fluorosocpic guidance using an AP, oblique and lateral views into the interlaminar space. A loss of resistance syringe was attached and loss of resistance to saline and air occurred. Then1-2 mls of Omnipaque 240mg/mL was injected under AP and confirmed adequate spread in the epidural sp neto without DSA. There was no evidence of intravascular uptake or intrathecal spread on imaging. A contralateral oblique view was also taken confirming adequate epidural spread. Then 2mls of PFNS mixed with 1mL of 10mg/mL dexamethasone was injected without incident. The needlewas flushed with a small amount of saline, re-styletted and removed. The needle insertion site was dressed appropriately. The patient was taken to the recovery room where she was monitored for a brief period of time. She tolerated the procedure well and were discharged home in stable condition with post procedural instructions. Follow-up will be in clinic. COMPLICATIONS: None documented in this encounter Plan of Treatment Upcoming Encounters Date Type Department Care Team (Late st Contact Info) Description 06/12/2024 2:00 PM EDT Scheduled Telephone Interventional Pain Center, [facility] [address] [place] [phone] David, Nurse Phone Call Interventional Pain Shayna [address] [place] [address] 06/19/2024 12:50 PM EDT Laboratory Laboratory [address] [place] [phone] [place] [address] 06/21/2024 2:40 PM EDT Office Visit Family Medicine [address] [place] [phone] Danika Chairez PA-C [address] [place] [address] [place] [address] 06/22/2024 10:50 AM EDT Anticoagulation Pharmacy, [address] [place] [address] [place] [address] 06/26/2024 1:00 PM EDT Office Visit Cardiology, [facility] [address] [place] [address] [facility] Cardiology Shayna [address] [place] [address] 07/03/2024 11:40 AM EDT Office Visit Nutrition & Weight Management, [facility] [address] [place] [address] Tami Garrett PA-C [address] [place] [address] 08/03/2024 1:00 PM EST Office Visit Orthopaedics [facility] [address] [place] [address] Herve Valera PA-C [address] [place] [address] 08/07/2024 1:00 PM EST Laboratory Laboratory [address] [place] [phone] [place] [address] 08/10/2024 1:00 PM EST Office Visit [facility] [address] [place] [address] Herve Valera PA-C [address] [place] [address] 08/14/2024 2:00 PM EST Office Visit Hematology/Oncolog y [facility] [address] [place] [phone] Jeanette Arellano MD [address] [place] [address] 08/23/2024 2:55 PM EST Office Visit Urogynecology [facility] [address] [place] [address] Bay Ferreira MD [address] [place] [phone] Nurse Zach Hernandez [address] [place] [phone] 08/24/2024 1:00 PM EST Office Visit Orthopaedics [facility] [address] [place] [address] Herve Valera PA-C [address] [place] [address] 12/11/2024 1:30 PM EDT Office Visit Cardiology, [facility] [address] [place] [address] Daylin Diaz PA-C [address] [place] [phone] 12/19/2024 1:40 PM EDT Office Visit [address] [place] [phone] Yoav Kong MD [address] [place] [address] [place] [address] 01/09/2025 10:30 AM EDT Office Visit Sleep Disorders [facility] [address] [place] [phone] Yara Beck CRNP [address] [place] [phone] Scheduled Procedures Name Priority Associated Diagnoses Date/Ti me COLONOSCOPY FLEXIBLE PROXIMAL DIAGNOSTIC Recall Colon cancer screening Health Maintenance Due Date Last Done Comments Adult Wellness Visit 2010 Depression Screening 03/28/2022 03/28/2021 DTap/Tdap Vaccines (2 - Td or Tdap) 06/14/2022 06/14/2012, 09/27/2005 CKD PHOS USE SMARTSET 66277 06/10/202405/22, 06/23/2022, 07/21/2021, Additional history exists GFR 10/18/2024 04/17/2024, 12/19, 06/10/2023, Additional history exists Albumin/Creatinine Ratio 01/18/2025 024, 12/11/2022, 12/16/2021, Additional history exists CKD HGB USE SMARTSET 19845 04/17/202504/17, 01/07/2024, 06/10/2023, Additional history exists TSH 04/17/2025 04/17/2024, 05/0 09/2023, 01/07/2024, Additional history exists DXA Scan 06/11/2027 06/11/2020, /09/2012, 07/04/2009, Additional history exists Pneumococcal Vaccine: 65+ [...] Not on filedocumented as of this encounter Procedures Procedure Name Priority Date/Time Associated Diagnosis Comments FLUORO INTERVENTIONAL PAIN PROCEDURE NONBILLABLE Routine 06/09/2024 2:54 PM EDT documented in this encounter Results * FLUORO INTERVENTIONAL PAIN PROCEDURE NONBILLABLE (06/09/2024 2:54 PM EDT) Narrative Scheduling, Silent - 06/09/2024 2:55 PM EDT This procedure will not be read by a Radiologist. Please see operative note. Fernandez Fajardo MD RAD FLUOROSCOPY documented in this encounter Administered Medications Inactive Administered Medications - up to 3 most recent administrations Medication Order MAR Action Action Date Dose Rate Site dexAMETHasone Sodium Phosphate (Decadron) 10 MG/ML inj 8 mg 8 mg, Intramuscular, ONCE, On Wed06/09/24 at 1500, For 1 dose, PROTECT FROM LIGHT Given 06/09/2024 2:51 PM EDT 10 mg Other -Specify Iohexol (Omnipaque 240) inj 0.5 mL 0.5 mL, Injection, ONCE, On Wed06/09/24 at 1500, For 1 dose Given 06/09/2024 2:51 PM EDT 0.5 mL lidocaine 1 % inj 20 mg 20 mg (2 mL), Subcutaneous, ONCE, On Wed06/09/24 at 1500, For 1 dose Given 06/09/2024 2:48 PM EDT 3 mL Other -Specify documented in this encounter Active and Recently Administered Medications Times are shown in EDT. Scheduled Medication Order 06/07/2024 06/08/2024 06/09/2024 dexAMETHasone Sodium Phosphate (Decadron) 10 MG/ML inj 8 mg (COMPLETED) 8 mg, Intramuscular, ONCE, On Wed06/09/24 at 1500, For 1 dose, PROTECT FROM LIGHT 1451 (Given - Provid er: Cari Tsai RN) Iohexol (Omnipaque 240) inj 0.5 mL (COMPLETED) 0.5 mL, Injection, ONCE, On Wed06/09/24 at 1500, For 1 dose 1451 (Given - Provid er: Cari Tsai RN) lidocaine 1 % inj 20 mg (COMPLETED) 20 mg (2 mL), Subcutaneous, ONCE, On Wed06/09/24 at 1500, For 1 dose 1448 (Given - Provid er: Cari Tsai RN) documented in this encounter Advance Directives Documents on File Type Date Recorded Patient Dub Room Engineer Expl anation Advance Directives and Livin g Will 05/20/2016 ADVANCE DIRECTIVE Power of Cloud Administrator 05/20/2016 POWER OF A TTORNEY * Full Code (Latest Code Status on File) Date Activated Date Inactivated Comments 08/14/2008 10:37 AM 08/14/2008 10:38 AM Care Teams Induction Brazer Relationship Specialty Start Date End Date Yoav Kong MD [address] [place] [address] [place] [phone] PCP - General Family Medicine 04/09/14 documented as of this encounter
--- OUTSIDE RECORDS SUMMARY | 2024-06-16 04:04 | External Medical Summary | Summary of Care ---
Author Name Unknown Organization [facility] Address [address] [place] [address] Phone [phone] Care Team Providers Care Acetylene Torch Operator Name Role Phone Yoav Kong MD Primary Care Provide r Encounter Details Date Type Department Care Team (Late st Contact Info) Description 06/06/2024 Telephone General Surgery, [facility] [address] [place] [address] Roxi Platt MD [address] [place] [phone] Allergies Active Allergy Reactions Criticality Noted Date [...] as of this encounter (statuses as of 06/06/2024) Medications Medication Sig Dispensed Refills Start Date [...] of pulmonary embolism,Factor V Leiden (HCC),Anticoagulation management encounter,care home current use of anticoagulant therapy,Venous thrombosis [...] (Aldactone)Indication s:Dyslipidemia, goal LDL below 100,Pulmonary embolus ([facility]),HTN, goal below 130/80,Factor V Leiden ([facility]) TAKE 1 TABLET BY MOUTH EVERY [...] as of this encounter (statuses as of 06/06/2024) Active Problems Problem Noted Date Diagnosed Date [...] kidney disease 07/29/2020 Overview: Per CKD protocol Advent or spiritual beliefs affecting medical care 05/25/2019 [...] pulmonary embolism 12/20/2011 Anticoagulation management encounter 12/14/2011 salvage determiner current use of anticoagulant therapy 0 12/14/2011 DYSLIPIDEMIA, GOAL LDL BELOW 100 08/29/2009 Overview: Per Lipid Taxonomy. COMMON MIGRAINE WITHOUT MENTION OF INTRACTABLE M IGRAINE 01/01/2003 GENERALIZED ANXIETY DIS 12/19/2001 TEMPOROMANDIBULAR JOINT DISORDERS, UNSPECIFIED Mitral valve disorder Gastroesophageal reflux disease without esophagi tis Other allergic rhinitis Overview: ICD-10 update of inactive term Mitral valve prolapse documented as of this encounter (statuses as of 06/06/2024) Resolved Problems Problem Noted Date Diagnosed Date [...] as of this encounter (statuses as of 06/06/2024) Immunizations Name Administration Dates Next Due COVID-19 [...] encounter Miscellaneous Notes * Telephone Encounter - Roxi Platt MD - 06/06/2024 2:56 PM EDT Mammo right diag ordered Could you help her schedule please? documented in this encounter Plan of Treatment Upcoming Encounters Date Type Department Care Team (Late st Contact Info) Description 06/07/2024 1:30 PM EDT Imaging Radiology [facility] 1st [facility] [address] [place] [address] 06/08/2024 12:00 PM EDT Laboratory Laboratory, [facility] [address] [place] [phone] HernandezOrtiz williamson [facility] [address] [place] [address] 06/08/2024 1:45 PM EDT Hospital Encounter OR [facility], Operating Room [facility] [address] [place] [phone] Fabian Bhagat, DO [address] [place] [phone] 06/08/2024 1:45 PM EDT - 06/08/2024 2:10 PM EDT Surgery OR [facility], Operating Room [facility] [address] [place] [phone] Fabian Bhagat, DO [address] [place] [phone] INJECTION SPINE LUMBAR OR SACRAL 06/19/2024 12:50 PM EDT Laboratory Laboratory [address] [place] [phone] [address] [place] [address] 06/21/2024 2:40 PM EDT Office Visit Family Medicine [address] [place] [phone] aDnika Chairez PA-C [address] [place] [address] [place] [address] 06/22/2024 10:50 AM EDT Anticoagulation Pharmacy, [address] [place] [address] [place] [address] 06/26/2024 1:00 PM EDT Office Visit Cardiology, [facility] [address] [place] [address] [facility] Cardiology [facility] [address] [place] [address] 07/03/2024 11:40 AM EDT Office Visit Nutrition & Weight Management, [facility] [address] [place] [address] Tami Garrett PA-C [address] [place] [address] 08/03/2024 1:00 PM EST Office Visit Orthopaedics [facility] 132 [facility] [place] [address] Herve Valera PA-C [address] [place] [address] 08/07/2024 1:00 PM EST Laboratory Laboratory [address] [place] [phone] [address] [place] [address] 08/10/2024 1:00 PM EST Office Visit Orthopaedics [facility] [place] [address] Herve Valera PA-C [address] [place] [address] 08/14/2024 2:00 PM EST Office Visit Hematology/Oncolog y [facility] [address] [place], [place] [phone] Jeanette Arellano MD [address] [place] [address] 08/23/2024 2:55 PM EST Office Visit Urogynecology [facility] [place] [address] Bay Ferreira MD [address] [place] [address] Nurse Zach Hernandez [facility] [address] [place] [address] 08/24/2024 1:00 PM EST Office Visit Orthopaedics [facility] 132 [facility] [place] [address] Herve Valera PA-C [address] [place] [address] 12/11/2024 1:30 PM EDT Office Visit Cardiology, [facility] 132 [facility] [place] [address] Daylin Diaz PA-C [address] [place] [address] 12/19/2024 1:40 PM EDT Office Visit Family Medicine [address] [place] [phone] Yoav Kong MD [address] [place] [address] [place] [address] 01/09/2025 10:30 AM EDT Office Visit [facility] [address] [facility] [place] [phone] Yraa Beck CRNP 132 [facility] [place] [address] Scheduled Orders Name Type Priority Associated Diagnoses [...] 06/14/2022 06/14/2012, 09/27/2005 CKD PHOS USE SMARTSET 12449 06/10/202405/22, 06/23/2022, 07/21/2021, Additional history exists GFR 10/18/2024 04/17/2024, 12/19, 06/10/2023, Additional history exists Albumin/Creatinine Ratio 01/18/2025 024, 12/11/2022, 12/16/2021, Additional history exists CKD HGB USE SMARTSET 45841 04/17/202504/17, 01/07/2024, 06/10/2023, Additional history exists TSH 04/17/2025 04/17/2024, 0509/2023, 01/07/2024, Additional history exists DXA Scan 06/11/2027 [...] Diagnosis Abnormal mammogram- Primary Abnormal mammogram, unspecified Lumbar radiculopathy Thoracic or lumbosacral neuritis or radiculitis, unspecified documented in this encounter Advance Directives Documents on File Type Date Recorded Patient Crop Insurance Claims Adjuster Expl anation Advance Directives and Karrie Gutiererz 05/20/2016 ADVANCE DIRECTIVE Power of Storage Manager 05/20/2016 POWER OF A TTORNEY * Full Code (Latest Code Status on File) Date Activated Date Inactivated Comments 08/14/2008 10:37 AM 08/14/2008 10:38 AM Care Teams Acetylene Torch Operator Relationship Specialty Start Date End Date Yoav Kong MD [address] [place] [address] [place] [address] PCP - General Family Medicine 04/09/14 documented as of this encounter
--- OUTSIDE RECORDS SUMMARY | 2024-06-16 04:05 | External Medical Summary | Summary of Care ---
Author Name Unknown Organization [facility] Address [address] [place] [address] Phone [phone] Care Team Providers Care Senior Corporate Recruiter Name Role Phone Yoav Kong MD Primary Care Provide r Reason for Visit * Reason Comments Dosage Adjustment Via Phone (anticoag Cl inic) Hyperlipidemia Encounter Details Date Type Department Care Team (Late st Contact Info) Description 06/05/2024 9:30 AM EDT Telemedicine Cardiology [facility] [place] [address] [place], [place] [phone] [place] [address], Pharmacist Cardiology [facility] [address], [place] [phone] Hyperlipemia, mixed* Allergies Active Allergy Reactions Criticality Noted Date [...] as of this encounter (statuses as of 06/05/2024) Medications Medication Sig Dispensed Refills Start Date [...] pulmonary embolism,Factor V Leiden (HCC),Anticoagulatio n management encounter,group home current use of anticoagulant [...] Subcutaneous Solution Auto-injector (evolocumab) Inject 140 mg under the skin every 14 days. 6 mL 3 4 Active Repatha SureClick 140 MG/ML Subcutaneous Solution Auto-injector (evolocumab) Inject 140 mg (1 pen) under the skin every 14 days. Remove from refrigerator 30 minutes prior to injection. 6 mL 3 4 024 Discontin ued(Refil l) Hospital, Clinic, or Other Facility Administered Medication Ordered Dose Route Frequency Start Date End Date Status Hylan (Synvisc) inj 16 mgIndications:Primary osteoarthritis of right knee 16 mg IX QWEEK 07/08/2023 Active documented as of this encounter (statuses as of 06/05/2024) Active Problems Problem Noted Date Diagnosed Date [...] kidney disease 07/29/2020 Overview: Per CKD protocol Episcopal or spiritual beliefs affecting medical care 05/25/2019 [...] pulmonary embolism 12/20/2011 Anticoagulation management encounter 12/14/2011 group home current use of anticoagulant therapy 0 [...] as of this encounter (statuses as of 06/05/2024) Resolved Problems Problem Noted Date Diagnosed Date [...] as of this encounter (statuses as of 06/05/2024) Immunizations Name Administration Dates Next Due COVID-19 [...] on file documented as of this encounter Progress Notes * Zhanna Molina, [facility] - 06/05/2024 9:26 AM EDT PCSK-9 Inhibitor Follow Up After connecting to the patient via telephone, the patient was identified by name and date of . Patient was then informed that this was a telephone call only visit. The patient agreed to participate Visit Disposition: Status check/routine follow up Duration: 5 minutes Primary Sorter Pricer/Ordering Provider: Daylin Diaz HPI: Linette Trujillo is a 79 year old year old female. History: Pt reports tolerating repatha well. Has follow up appt with MTM in June Target LDL: <100 Clinical ASCVD/Risk Score: The ASCVD Risk score (Hillsdale DK, et al., 2019) failed to calculate for the following reasons: The 2019 ASCVD risk score is only valid for ages 40 to 79 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 management encounter 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 use of anticoagulant therapy Factor V Leiden (HCC) HTN, goal below 140/90 History of pulmonary embolism Hypothyroidism Spider veins of both lower extremities Statin intolerance BIANCA (obstructive sleep apnea) Varicose veins of both legs with edema De Quervain's tenosynovitis Slac (scapholunate advanced collapse) of wrist, right Primary osteoarthritis of first carpometacarpal joint of right hand Episcopal or spiritual beliefs affecting medical care Hypertensive kidney disease with stage 3a chronic kidney disease Chronic kidney disease, stage 3a (HCC) Infiltrating ductal carcinoma of left breast ([facility]) Laceration of left index finger without foreign body without damage to nail Diastolic dysfunction Obesity, morbid (more than 100 lbs over ideal weight or BMI > 40) ([facility]) Review of patient's allergies indicates: Allergen Reactions [...] Terazol [Terconazole] hives Terconazole Unknown Fluconazole Hives LABS: Lab Results Component Value Date/Time LDL (CALCULATED) 80. 08/14/1996 10:34 AM LDL CHOLESTEROL (CALCULATED) - [facility] 150 (H) 01/19/2024 08:26 AM LDL CHOLESTEROL (CALCULATED) - [facility] 121 12/10/2022 09:13 AM LDL CHOLESTEROL (CALCULATED) - [facility] 123 12/16/2021 09:01 AM LDL CHOLESTEROL (CALCULATED) - [facility] 134 (H) 06/06/2020 10:35 AM LDL CHOLESTEROL (CALCULATED) - [facility] 136 (H) 11/07/2019 11:25 AM LDL CHOLESTEROL (CALCULATED) - [facility] 123 06/27/2019 10:22 AM LDL CHOLESTEROL (DIRECT MEASURE) - [facility] NOT APPLICABLE 06/06/2020 10:35 AM LDL CHOLESTEROL (DIRECT MEASURE) - [facility] NOT APPLICABLE 11/07/2019 11:25 AM LDL CHOLESTEROL (DIRECT MEASURE) - [facility] NOT APPLICABLE 06/27/2019 10:22 AM ASSESSMENT There are no diagnoses linked to this encounter. Patient is on the following medication(s): Repatha 140 mg every 2 weeks; Zetia 10 mg daily PLAN OF ACTION Medication Regimen: CONTINUE Labs Needed: yes --scheduled 06/19 Follow-Up Appointment(s): Pharmacist: 06/26 Physician: 12/11/24 Zhanna Moss RPh [facility] Clinical Pharmacist Cardiology Department 06/05/2024,9:26 AM documented in this encounter Plan of Treatment Upcoming Encounters Date Type Department Care Team (Late st Contact Info) Description 06/05/2024 1:15 PM EDT Imaging Radiology [facility] [address] [place] [address] 06/05/2024 2:45 PM EDT Imaging Radiology [facility] [address] [place] [address] [place] [address] 06/08/2024 12:00 PM EDT Laboratory Laboratory, [address] [place] [phone] [facility]hr[facility]Ortiz [facility] [address] [place] [address] 06/08/2024 1:45 PM EDT Hospital Encounter OR [facility], Operating Room [facility] [address] [place] [phone] Fabian Bhagat, DO [address] [place] [phone] 06/08/2024 1:45 PM EDT - 06/08/2024 2:10 PM EDT Surgery OR [facility], Operating Room [facility] [address] [place] [phone] Fabian Bhagat, DO [address] [place] [phone] INJECTION SPINE LUMBAR OR SACRAL 06/19/2024 12:50 PM EDT Laboratory Laboratory [address] [place] [phone] [place] [address] [place] [address] 06/21/2024 2:40 PM EDT Office Visit Family Medicine [address] [place] [phone] Danika Chairez PA-C [address] [place] [address] [place] [address] 06/22/2024 10:50 AM EDT Anticoagulation Pharmacy, [address] [place] [address] [place] [address] 06/26/2024 1:00 PM EDT Office Visit Cardiology, [facility] [place] [address] [facility] Card[facility] [place] [address] 07/03/2024 11:40 AM EDT Office Visit Nutrition & Weight Management, [facility] 132 [facility] [place] [address] Tami Garrett PA-C [address] [place] [address] 08/03/2024 1:00 PM EST Office Visit Orthopaedics [facility] [place] [place] [address] Herve Valera PA-C [address] [place] [address] 08/07/2024 1:00 PM EST Laboratory Laboratory [address] [place] [phone] [place], [address] [place] [address] 08/10/2024 1:00 PM EST Office Visit Orthopaedics [facility] 132 [facility] [place] [address] Herve Valera PA-C [address] [place] [address] 08/14/2024 2:00 PM EST Office Visit Hematology/Oncolog y [facility] [place] [address] [place] [phone] Jeanette Arellano MD [address] [place] [address] 08/23/2024 2:55 PM EST Office Visit Urogynecology [facility] [address] [place] [address] Bay Ferreira MD [address] [place] [address] Nurse Zach [facility] [address] [place] [address] 08/24/2024 1:00 PM EST Office Visit Orthopaedics [facility] [address] [place] [address] Herve Valera PA-C [address] [place] [address] 12/11/2024 1:30 PM EDT Office Visit Cardiology, [facility] [address] [place] [address] Daylin Diaz PA-C [address] [place] [address] 12/19/2024 1:40 PM EDT Office Visit Family Medicine [address] [phone] Yoav Kong MD [address] [place] [address] [place] [address] 01/09/2025 10:30 AM EDT Office Visit [facility] [address] [place] [phone] Yara Beck CRNP [address] [place] [address] Scheduled Procedures Name Priority Associated Diagnoses Date/Ti me INJECTION SPINE LUMBAR OR SACRAL Lumbar radiculopathy 06/08/2024 1:45 PM EDT COLONOSCOPY FLEXIBLE PROXIMAL DIAGNOSTIC Recall Colon cancer screening Health Maintenance Due Date Last Done Comments Adult Wellness Visit 2010 Depression Screening 03/28/2022 03/28/2021 DTap/Tdap Vaccines (2 - Td or Tdap) 06/14/2022 06/14/2012, 09/27/2005 CKD PHOS USE SMARTSET 13715 06/10/202405/22, 06/23/2022, 07/21/2021, Additional history exists GFR 10/18/2024 04/17/2024, 12/19, 06/10/2023, Additional history exists Albumin/Creatinine Ratio 01/18/2025 024, 12/11/2022, 12/16/2021, Additional history exists CKD HGB USE SMARTSET 68389 04/17/202504/17, 01/07/2024, 06/10/2023, Additional history exists TSH [...] as of this encounter Visit Diagnoses Diagnosis Hyperlipemia, mixed- Primary Mixed hyperlipidemia Lumbar radiculopathy Thoracic or lumbosacral neuritis or radiculitis, unspecified documented in this encounter Advance Directives Documents on File Type Date Recorded Patient Barrel Loader And Cleaner Expl anation Advance Directives and Karrie mata Will 05/20/2016 ADVANCE DIRECTIVE Power of Fellmongery Worker 05/20/2016 POWER OF A TTORNEY * Full Code (Latest Code Status on File) Date Activated Date Inactivated Comments 08/14/2008 10:37 AM 08/14/2008 10:38 AM Care Teams Senior Corporate Recruiter Relationship Specialty Start Date End Date Yoav Kong MD [address] [place] [address] [place] [address] PCP - General Family Medicine 04/09/14 documented as of this encounter
--- OUTSIDE RECORDS SUMMARY | 2024-06-16 04:05 | External Medical Summary ---
Author Name Unknown Address Unknown Organization : Laboratory Report Ordering Provider Test Date Status PIERO RIVERA 05/29/2024 09:30:12 Final Therapeutic ranges for non-o perative patients:
Prophylaxsis/treatment of DVT: (Range:2.0-3.0)
Treatment of pulmonary embolism:(Range:2.0-3.0)
Prevention of systemic embolism from:
-tissue heart valves
-acute myocardial infarction
-valvular heart disease
-atrial fibrillation
(Range: 2.0-3.0)
Mechanical prosthetic valves: (Range: 2.5-3.5) Observation Date Value Abnormality Reference (Units ) Status INR in Capillary blood by Coagulation assay 05/29/2024 09:30:12 2.3 (INR) Final Performing Location
--- OUTSIDE RECORDS SUMMARY | 2024-06-16 04:05 | External Medical Summary | Summary of Care ---
Author Name Unknown Organization [facility] Address [address] [place] [address] Phone [phone] Care Team Providers Care Vpk Teacher Name Role Phone Yoav Kong MD Primary Care Provide r Reason for Visit * Reason Onset Date Comments Medication Question 06/02/2024 Encounter Details Date Type Department Care Team (Late st Contact Info) Description 06/02/2024 Telephone Centralized Clinical Pharmacy Services, Suzanne Morgan [address] [place] [address] [place] [address] [place] [address] Medication Question Allergies Active Allergy Reactions Criticality Noted Date [...] as of this encounter (statuses as of 06/02/2024) Medications Medication Sig Dispensed Refills Start Date [...] of pulmonary embolism,Factor V Leiden (HCC),Anticoagulation management encounter,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 Remove from refrigerator 30 minutes prior to injection. 6 mL 3 4 Active Metamucil Fiber Oral Tablet Chewable [...] by anticoagulation clinic for bridging instructions. Active Hospital, Clinic, or Other Facility Administered Medication Ordered Dose Route Frequency Start Date End Date Status Hylan (Synvisc) inj 16 mgIndications:Primary osteoarthritis of right knee 16 mg IX QWEEK 07/08/2023 Active documented as of this encounter (statuses as of 06/02/2024) Active Problems Problem Noted Date Diagnosed Date [...] kidney disease 07/29/2020 Overview: Per CKD protocol Holiness or spiritual beliefs affecting medical care 05/25/2019 [...] pulmonary embolism 12/20/2011 Anticoagulation management encounter 12/14/2011 retirement current use of anticoagulant therapy 0 12/14/2011 DYSLIPIDEMIA, GOAL LDL BELOW 100 08/29/2009 Overview: Per Lipid Taxonomy. COMMON MIGRAINE WITHOUT MENTION OF INTRACTABLE M IGRAINE 01/01/2003 GENERALIZED ANXIETY DIS 12/19/2001 TEMPOROMANDIBULAR JOINT DISORDERS, UNSPECIFIED Mitral valve disorder Gastroesophageal reflux disease without esophagi tis Other allergic rhinitis Overview: ICD-10 update of inactive term Mitral valve prolapse documented as of this encounter (statuses as of 06/02/2024) Resolved Problems Problem Noted Date Diagnosed Date [...] as of this encounter (statuses as of 06/02/2024) Immunizations Name Administration Dates Next Due COVID-19 [...] encounter Miscellaneous Notes * Telephone Encounter - Kamala Tijerina, LTAC, located within [facility] - 06/02/2024 11:22 AM EDT Patient Phone Numbers Called and spoke to patient. Updated instructions reviewed and sent via [employer]. Lab appointment rescheduled. Follow up INR rescheduled. [facility] Heal. Teach. Discover. Serve. Anticoagulation Clinic Lovenox Schedule for Bridging Linette Trujillo ( 43) Last dose of Coumadin: June 02 (Wednesday) Pre-op Day 5 June 03 (Wednesday) No Coumadin No Lovenox Pre-op Day 4 June 04 (Wednesday) No Coumadin No Lovenox Pre-op Day 3 June 05 (Wednesday) No Coumadin Lovenox 100 mg injection at 8 am and 8 pm Pre-op Day 2 June 06 (Wednesday) No Coumadin Lovenox 100 mg injection at 8 am and 8 pm Pre-op Day 1 June 07 (Wednesday) No Coumadin Lovenox 100 mg injection at 8 AM ONLY (No injection in the evening) Surgical Date June 08 () (No injection in the morning) Coumadin 4 mg at usual time Post-op Day 1 June 09 (Wednesday) Lovenox 100 mg injection at 8 pm Coumadin 4 mg at usual time Post-op Day 2 June 10 (Wednesday) Lovenox 100 mg injection at 8 am and 8 pm Coumadin 2 mg at usual time Post-op Day 3 June 11 (Wednesday) Lovenox 100 mg injection at 8 am and 8 pm Restart regular dose of Coumadin: 2mg daily Next INR Appointment: * Telephone Encounter - Leah Michelle, calculus professor - 06/02/2024 10:30 AM EDT Caller's name: Linette Menjivar call back number(OFFICE NUMBER FOR ): [phone] Reason for call: Patient's procedure for 06/30 was canceled as they had an earlier appointment for 06/08 open. Patient would like a call back from Kamala Beauchamp to go over dosing instructions for when she should stop taking her Coumadin. Leah Michelle Medical Aides Teacher Centralized Clinical Pharmacy Services [address] [place] [address] [address] [place] [address] [id number] 06/02/2024,10:33 AM documented in this encounter Plan of Treatment Upcoming Encounters Date Type Department Care Team (Late st Contact Info) Description 06/05/2024 1:15 PM EDT Imaging Radiology [facility] [address] [place] [address] 06/05/2024 2:45 PM EDT Imaging Radiology [facility] [address] [place] [address] 06/08/2024 12:00 PM EDT Laboratory Laboratory, [address] [place] [phone] Ortiz Hernandez [address] [place] [address] 06/08/2024 1:45 PM EDT Hospital Encounter OR [facility], Operating Room [facility] [address] [place] [phone] Fabian Bhagat, DO [address] [place] [phone] 06/08/2024 1:45 PM EDT - 06/08/2024 2:10 PM EDT Surgery OR [facility], Operating Room [facility] [address] [place] [phone] Fabian Bhagat, [address] [place] [phone] INJECTION SPINE LUMBAR OR SACRAL 06/19/2024 12:50 PM EDT Laboratory Laboratory [address] [place] [phone] [place] [address] [place] [address] 06/21/2024 2:40 PM EDT Office Visit Family Medicine [address] [place] [phone] Danika Chairez PA-C [address] [place] [address] [place] [address] 06/22/2024 10:50 AM EDT Anticoagulation Pharmacy, [address] [place] [address] [place] [address] 06/26/2024 1:00 PM EDT Office Visit Cardiology, [facility] 132 [facility] [place]NE [place] [address] [facility] Clinic Cardiology [facility] 132 [facility] [place] [address] 07/03/2024 11:40 AM EDT Office Visit Nutrition & Weight Management, [facility] 132 [facility] [place] [address] Tami Garrett PA-C [address] [place] [address] 08/03/2024 1:00 PM EST Office Visit Orthopaedics [facility] [place] [address] Herve Valera PA-C [address] [place] [address] 08/07/2024 1:00 PM EST Laboratory Laboratory [address] [place] [phone] [address] [place] [address] 08/10/2024 1:00 PM EST Office Visit Orthopaedics [facility] 132 [facility] [place] [address] Herve Valera PA-C [address] [place] [address] 08/14/2024 2:00 PM EST Office Visit Hematology/Oncolog y [facility] [place] [address] [place] [phone] Jeanette Arellano MD [address] [place] [address] 08/23/2024 2:55 PM EST Office Visit Urogynecology [facility] [address] [place] [address] Bay Ferreira MD [address] [place] [address] HernandezNurse Zach williamson [facility] [address] [place] [address] 08/24/2024 1:00 PM EST Office Visit Orthopaedics [facility] [place] [address] Herve Valera PA-C [address] [place] [address] 12/11/2024 1:30 PM EDT Office Visit Cardiology, [facility] [address] [place] [address] Daylin Diaz PA-C 132 [facility] [place] [address] 12/19/2024 1:40 PM EDT Office Visit Family Medicine [address] [phone] Yoav Kong MD [address] [place] [address] [place] [address] 01/09/2025 10:30 AM EDT Office Visit Sleep Disorders Ctr [facility] 132 [facility] [place] [phone] Yara Beck CRNP [address] [place] [address] Scheduled Procedures Name Priority Associated Diagnoses Date/Ti me INJECTION SPINE LUMBAR OR SACRAL Lumbar radiculopathy 06/08/2024 1:45 PM EDT COLONOSCOPY FLEXIBLE PROXIMAL DIAGNOSTIC Recall Colon cancer screening Health Maintenance Due Date Last Done Comments Adult Wellness Visit 2010 Depression Screening 03/28/2022 03/28/2021 DTap/Tdap Vaccines (2 - Td or Tdap) 06/14/2022 06/14/2012, 09/27/2005 CKD PHOS USE SMARTSET 70964 06/10/202405/22, 06/23/2022, 07/21/2021, Additional history exists GFR 10/18/2024 04/17/2024, 12/19, 06/10/2023, Additional history exists Albumin/Creatinine Ratio 01/18/2025 024, 12/11/2022, 12/16/2021, Additional history exists CKD HGB USE SMARTSET 45471 04/17/202504/17, 01/07/2024, 06/10/2023, Additional history exists TSH [...] as of this encounter Visit Diagnoses Diagnosis Anticoagulation management encounter- Primary Encounter for therapeutic drug monitoring History of pulmonary embolism Personal history of pulmonary embolism Factor V Leiden (HCC) Primary hypercoagulable state Lumbar radiculopathy Thoracic or lumbosacral neuritis or radiculitis, unspecified documented in this encounter Advance Directives Documents on File Type Date Recorded Patient Brick Paver Expl anation Advance Directives and Karrie mata Will 05/20/2016 ADVANCE DIRECTIVE Power of Personnel Recruiter 05/20/2016 POWER OF A TTORNEY * Full Code (Latest Code Status on File) Date Activated Date Inactivated Comments 08/14/2008 10:37 AM 08/14/2008 10:38 AM Care Teams Vpk Teacher Relationship Specialty Start Date End Date Yoav Kong MD [address] [place] [address] [place] [address] PCP - General Family Medicine 04/09/14 documented as of this encounter
--- OUTSIDE RECORDS SUMMARY | 2024-06-16 04:05 | External Medical Summary | Summary of Care ---
Author Name Unknown Organization [facility] Address [address] [place] [address] Phone [phone] Care Team Providers Care Kier Pleater Name Role Phone Yoav Kong MD Primary Care Provide r Reason for Visit * Reason Comments Dosage Adjustment In Person (Anticoag Cl inic) Encounter Details Date Type Department Care Team (Latest Contact Info) Description 05/29/2024 9:30 AM EDT Anticoagulation Pharmacy, [address] [place] [address] [place] [address] Anticoagulation management encounter*; History of pulmonary embolism; Factor V Leiden (HCC) Allergies Active Allergy Reactions Criticality Noted Date [...] as of this encounter (statuses as of 05/29/2024) Medications Medication Sig Dispensed Refills Start Date [...] by mouth in the morning. 2 Active Biotin 1000 MCG Oral Tablet Chewable Take by mouth 5,000 mcg daily . 2 Active Folic Acid 800 MCG Oral Tablet Take 1 Tablet by mouth in the morning. 2 Active high fiber LIQD Take by mouth. High Fiber packet once a day Active Warfarin Sodium 2 MG Oral Tablet (Coumadin)Indications :History of pulmonary embolism,Factor V Leiden (HCC),Anticoagulation management encounter,intermediate current use of anticoagulant therapy,Venous thrombosis TAKE [...] Additional Information Patient not taking.Reported on 04/17/2024 buPROPion HCl ER (SR) 150 MG Oral Tablet Extended Release 12 Hour (Wellbutrin SR) Take 1 tab by mouth once a day for 1 week then take 1 tab twice a day (morning & late afternoon) 60 Tablet 3 4 Active Additional Information Patient [...] THE DAY 90 Tablet 2 4 Active Gabapentin 100 MG Oral Capsule (Neurontin)Indication s:Neuropathic pain Take 2 capsules by mouth at night for one week then advance to 2 capsules by mouth twice daily thereafter. 120 Capsule 2 4 Active Super B-50 Complex Oral [...] follow package directions 21 Tablet 4 Active Famotidine 20 MG Oral Tablet (Pepcid) Take 1 tablet by mouth every 12 hours as needed for stomach upset while taking steroid therapy. 20 Tablet 4 Active Enoxaparin Sodium 100 MG/ML Injection Solution Prefilled Syringe (Lovenox) Inject 100 mg under the skin in the morning and 100 mg before bedtime. As directed by anticoagulation clinic for bridging instructions.. 10 mL 4 Active Hospital, Clinic, or Other Facility Administered Medication Ordered Dose Route Frequency Start Date End Date Status Hylan (Synvisc) inj 16 mgIndications:Primary osteoarthritis of right knee 16 mg IX QWEEK 07/08/2023 Active documented as of this encounter (statuses as of 05/29/2024) Active Problems Problem Noted Date Diagnosed Date [...] kidney disease 07/29/2020 Overview: Per CKD protocol Yazidi or spiritual beliefs affecting medical care 05/25/2019 [...] pulmonary embolism 12/20/2011 Anticoagulation management encounter 12/14/2011 intermediate current use of anticoagulant therapy 0 12/14/2011 DYSLIPIDEMIA, GOAL LDL BELOW 100 08/29/2009 Overview: Per Lipid Taxonomy. COMMON MIGRAINE WITHOUT MENTION OF INTRACTABLE M IGRAINE 01/01/2003 GENERALIZED ANXIETY DIS 12/19/2001 TEMPOROMANDIBULAR JOINT DISORDERS, UNSPECIFIED Mitral valve disorder Gastroesophageal reflux disease without esophagi tis Other allergic rhinitis Overview: ICD-10 update of inactive term Mitral valve prolapse documented as of this encounter (statuses as of 05/29/2024) Resolved Problems Problem Noted Date Diagnosed Date [...] as of this encounter (statuses as of 05/29/2024) Immunizations Name Administration Dates Next Due COVID-19 [...] as of this encounter Progress Notes * Kamala Tijerina, [facility] - 05/29/2024 9:22 AM EDT Medication Therapy Disease Management - Anticoagulation Patient: Linette Palomo Rnonie | : 1945 Subjective Contacts Contact Date/Time Type Contact Phone/Fax 05/22/2024 05:16 AM EDT Vendor (Outgoing) Linette Trujillo [phone] 05/26/2024 05:11 AM EDT Vendor (Outgoing) Linette Trujillo [phone] 05/28/2024 05:12 AM EDT Vendor (Outgoing) David Trujilloth Dewey [phone] Patient-Reported Symptoms: Patient Findings Positives: Upcoming invasive procedure Negatives: Signs/symptoms of thrombosis, Signs/symptoms of bleeding, Change in health, Change in alcohol use, Change in activity, Missed doses, Extra doses, Change in medications, Change in diet/appetite, Bruising Objective Current Warfarin Dose As of 05/29/2024 Warfarin maintenance plan: 2 mg (2 mg x 1) every day INR Result As of 05/29/2024 INR goal: 2.0-3.0 INR used for dosin.3 (05/29/2024) Assessment & Plan Warfarin Plan As of 05/29/2024 Full warfarin instructions: 06/25: Hold; 06/26: Hold; 06/27: Hold; 06/28: Hold; 06/29: Hold; 06/30: 4 mg; 07/01: 4 mg; Otherwise 2 mg every day No change documented: Kamala Tijerina [facility] Next INR check: 07/07/2024 Repeat PT/INR in 5 week(s) (1 week post injection) Weekly dose: not changed Additional Dosing Information: Patient is having a spinal injection on 06/30. Patient has history of DVT/PE and Factor V Leiden and requires Lovenox bridging. Patient used Lovenox before without issue. INR scheduled at lab day of procedure. Lovenox - [facility] Heal. Teach. Discover. Serve. Anticoagulation Clinic Lovenox Schedule for Bridging Linette Trujillo ( 43) Last dose of Coumadin: June 24 (Wednesday) Pre-op Day June 25 (Wednesday) No Coumadin No Lovenox Pre-op Day June 26 (Wednesday) No Coumadin No Lovenox Pre-op Day 3 June 27 (Wednesday) No Coumadin Lovenox 100 mg injection at 8 am and 8 pm Pre-op Day 2 June 28 (Wednesday) No Coumadin Lovenox 100 mg injection at 8 am and 8 pm Pre-op Day 1 June 29 () No Coumadin Lovenox 100 mg injection at 8 AM ONLY (No injection in the evening) Surgical Date June 30 (Wednesday) (No injection in the morning) Coumadin 4 mg at usual time Post-op Day 1 July 01 (Wednesday) Lovenox 100 mg injection at 8 pm Coumadin 4 mg at usual time Post-op Day 2 July 02 (Wednesday) Lovenox 100 mg injection at 8 am and 8 pm Coumadin 2 mg at usual time Post-op Day 3 July 03 (Wednesday) Lovenox 100 mg injection at 8 am and 8 pm Restart regular dose of Coumadin: 2mg daily Next INR Appointment: Description Eats a green smoothie each day I spent a total of 20-29 minutes (exact time 20 mins) on the date of service in preparation, delivery, and documentation of the care provided to Linette Trujillo excluding any time spent in the performance of separately billed services or time spent by another provider/QHP. Kamala Tijerina [facility] Clinical Pharmacist 05/29/2024, 9:22 AM documented in this encounter Plan of Treatment Upcoming Encounters Date Type Department Care Team (Late st Contact Info) Description 05/31/2024 10:30 AM EDT Office Visit Cardiology, [facility] [address] [place] [address] Daylin Diaz PA-C 132 [place] [address] 06/05/2024 2:45 PM EDT Imaging Radiology [address] [place] [address] 06/14/2024 1:40 PM EDT Office Visit Family Medicine [address] [place] [phone] Danika Chairez PA-C [address] [place] [address] [place] [address] 06/19/2024 12:50 PM EDT Laboratory Laboratory [address] [place] [phone] [place] [address] 06/26/2024 1:00 PM EDT Office Visit Cardiology, [facility] [address] [place] [address] [facility] Clinic Cardiology [facility] [address] [place] [address] 06/30/2024 12:20 PM EDT Laboratory Laboratory, [facility] [address] [place] [phone] Ortiz Hernandez [facility] [address] [place] [address] 06/30/2024 1:20 PM EDT Hospital Encounter OR [facility], Operating Room [facility] [address] [place] [phone] Fabian Bhagat, [address] [place] [phone] 06/30/2024 1:20 PM EDT - 06/30/2024 1:45 PM EDT Surgery OR [facility], Operating Room [facility] [address] [place] [phone] Fabian Bhagat, DO [address] [place] [phone] INJECTION SPINE LUMBAR OR SACRAL 07/03/2024 11:40 AM EDT Office Visit Nutrition & Weight Management, [facility] [address] [place] [address] Tami Garrett PA-C [address] [place] [address] 07/07/2024 1:00 PM EDT Anticoagulation Pharmacy, [address] [place] [address] [place] [address] 08/03/2024 1:00 PM EST [facility] [place] [address] Herve Valera PA-C [address] [place] [address] 08/07/2024 1:00 PM EST Laboratory Laboratory [address] [place] [phone] [facility] [address] [place] [address] 08/10/2024 1:00 PM EST Office Visit Orthopaedics [facility] 132 [facility] [place] [address] Herve Valera PA-C [address] [place] [address] 08/14/2024 2:00 PM EST Office Visit Hematology/Oncolog y [facility] [place] [address] [place] [phone] Jeanette Arellano MD [address] [place] [address] 08/23/2024 2:55 PM EST [facility] [address] [place] [address] Bay Ferreira MD [address] [place] [address] Nurse Zach Hernandez [address] [place] [address] 08/24/2024 1:00 PM EST Office Visit Orthopaedics [facility] [place] [address] Herve Valera PA-C [address] [place] [address] 12/19/2024 1:40 PM EDT Office Visit Family Medicine [address] [place] [phone] Yoav Kong MD [address] [place] [address] [place] [address] 01/09/2025 10:30 AM EDT Office Visit Sleep Disorders Ctr [facility] 132 [facility] [place] [phone] Yara Beck CRNP 132 [facility] [place] [address] Scheduled Orders Name Type Priority Associated Diagnoses Orde r Schedule PT INR Lab STAT History of pulmonary embolism Factor V Leiden (HCC) Anticoagulation management encounter Expected: 06/30/2024, Expires: 05/29/2025 Scheduled Procedures Name Priority Associated Diagnoses Date/Ti me INJECTION SPINE LUMBAR OR SACRAL Lumbar radiculopathy 06/30/2024 1:20 PM EDT COLONOSCOPY FLEXIBLE PROXIMAL DIAGNOSTIC Recall Colon cancer screening Health Maintenance Due Date Last Done Comments Depression Screening 03/28/2022 03/28/2021 DTap/Tdap Vaccines (2 - Td or Tdap) 06/14/2022 06/14/2012, 09/27/2005 CKD PHOS USE SMARTSET 93884 06/10/202405/22, 06/23/2022, 07/21/2021, Additional history exists COVID-19 Vaccine ( season) 2024 05/19/2024, 08/02/2023, 01/27/2022, Additional history exists GFR 10/18/2024 04/17/2024, 12/19, 06/10/2023, Additional history exists Albumin/Creatinine Ratio 01/18/2025 024, 12/11/2022, 12/16/2021, Additional history exists CKD HGB USE SMARTSET 64732 04/17/202504/17, 01/07/2024, 06/10/2023, Additional history exists TSH 04/17/2025 04/17/2024, 05/0 09/2023, 01/07/2024, Additional history exists DXA Scan 06/11/2027 06/11/2020, 10/22, 07/04/2009, Additional history exists Pneumococcal Vaccine: 65+ Years Completed 10/15/2014, 04/24/2009, 06/11/1999 Zoster Vaccines Completed 04/07/2020, 08/20, 05/03/2009 Influenza Vaccine (FLU shot) Completed , 06/05/2023, [...] Procedure Name Priority Date/Time Associated Diagnosis Comments INR FINGERSTICK, POINT OF CARE STAT 05/29/2024 9:30 AM EDT History of pulmonary embolism Factor V Leiden (HCC) Anticoagulation management encounter documented in this encounter Results * INR FINGERSTICK, POINT OF CARE (05/29/2024 9:30 AM EDT) Fingerstick INR 2.3 INR 9:31 AM EDT [facility] 55-00 Blood 05/29/2024 9:30 AM EDT 05/29/2024 9:31 AM EDT Narrative [facility] - 05/29/2024 9:31 AM EDT Therapeutic ranges for non-operative patients: Prophylaxsis/treatment of DVT: (Range:2.0-3.0) Treatment of pulmonary embolism:(Range:2.0-3.0) Prevention of systemic embolism from: -tissue heart valves -acute myocardial infarction -valvular heart disease -atrial fibrillation (Range: 2.0-3.0) Mechanical prosthetic valves: (Range: 2.5-3.5) Kamala Tijerina [facility] LAB POINT OF CARE TEST DOCKED DEVICE UNSOLICITED RESULTS [facility] [address] [place] [address] Drive [place] [address] documented in this encounter Visit Diagnoses Diagnosis Anticoagulation management encounter- Primary Encounter for therapeutic drug monitoring History of pulmonary embolism Personal history of pulmonary embolism Factor V Leiden (HCC) Primary hypercoagulable state Lumbar radiculopathy Thoracic or lumbosacral neuritis or radiculitis, unspecified documented in this encounter Advance Directives Documents on File Type Date Recorded Patient Hose Wrapper Expl anation Advance Directives and Livin g Will 05/20/2016 ADVANCE DIRECTIVE Power of Merchandise Stocker 05/20/2016 POWER OF A TTORNEY * Full Code (Latest Code Status on File) Date Activated Date Inactivated Comments 08/14/2008 10:37 AM 08/14/2008 10:38 AM Care Teams Kier Pleater Relationship Specialty Start Date End Date Yoav Kong MD [address] [place] [address] [place] [address] PCP - General Family Medicine 04/09/14 documented as of this encounter
--- OUTSIDE RECORDS SUMMARY | 2024-06-16 04:05 | External Medical Summary | Summary of Care ---
Author Name Unknown Organization [facility] Address [address] [place] [address] Phone [phone] Care Team Providers Care Patent Lawyer Name Role Phone Yoav Kong MD Primary Care Provide r Encounter Details Date Type Department Care Team (Late st Contact Info) Description 05/25/2024 Telephone Pharmacy, [address] [place] [address] Kamala Tijerina, Formerly [facility] [address] [place] [address] Allergies Active Allergy Reactions Criticality Noted Date [...] as of this encounter (statuses as of 05/25/2024) Medications Medication Sig Dispensed Refills Start Date [...] of pulmonary embolism,Factor V Leiden (HCC),Anticoagulation management encounter,exterminator helper current use of anticoagulant therapy,Venous thrombosis TAKE [...] before bedtime. 180 Tablet 3 4 Active Hospital, Clinic, or Other Facility Administered Medication Ordered Dose Route Frequency Start Date End Date Status Hylan (Synvisc) inj 16 mgIndications:Primary osteoarthritis of right knee 16 mg IX QWEEK 07/08/2023 Active documented as of this encounter (statuses as of 05/25/2024) Active Problems Problem Noted Date Diagnosed Date [...] kidney disease 07/29/2020 Overview: Per CKD protocol Christian or spiritual beliefs affecting medical care 05/25/2019 [...] pulmonary embolism 12/20/2011 Anticoagulation management encounter 12/14/2011 exterminator helper current use of anticoagulant therapy 0 12/14/2011 DYSLIPIDEMIA, GOAL LDL BELOW 100 08/29/2009 Overview: Per Lipid Taxonomy. COMMON MIGRAINE WITHOUT MENTION OF INTRACTABLE M IGRAINE 01/01/2003 GENERALIZED ANXIETY DIS 12/19/2001 TEMPOROMANDIBULAR JOINT DISORDERS, UNSPECIFIED Mitral valve disorder Gastroesophageal reflux disease without esophagi tis Other allergic rhinitis Overview: ICD-10 update of inactive term Mitral valve prolapse documented as of this encounter (statuses as of 05/25/2024) Resolved Problems Problem Noted Date Diagnosed Date [...] as of this encounter (statuses as of 05/25/2024) Immunizations Name Administration Dates Next Due COVID-19 [...] Miscellaneous Notes * Telephone Encounter - Kamala Tijerina RPh - 05/25/2024 2:16 PM EDT Patient is having a spinal injection on 06/30. Patient has history of DVT/PE and Factor V Leiden and requires Lovenox bridging. Patient used Lovenox before without issue. See letters section for specific lovenox bridge instructions. Patient will need INR the day of procedure. Actual Body Weight 99.8kg Darby Body Weight 49kg Adjusted Body Weight 69kg Labs Drawn on 04/17/24 Serum creatinine: 1.1 mg/dL (H) 04/17/24 1157 Estimated creatinine clearance: 44.6 mL/min (A) Hemoglobin Results: Recent Labs Units 04/17/24 1157 01/07/24 1606 06/10/23 1520 HGB g/dL 13.8 14.6 14.2 Platelets: Recent Labs Units 04/17/24 1157 01/07/24 1606 06/10/23 1520 PLT K/uL 286 320 288 Lovenox Dose: 100mg BID Will plan to review with patient at upcoming [facility] visit as well as schedule same day INR. Kamala Tijerina RPh Clinical Pharmacist Medication Therapy Disease Management 05/25/2024, 2:16 PM documented in this encounter Plan of Treatment Upcoming Encounters Date Type Department Care Team (Late st Contact Info) Description 05/29/2024 9:30 AM EDT Anticoagulation Pharmacy, [address] [place] [address] [place] [address] 05/31/2024 10:30 AM EDT Office Visit Cardiology, [facility] [address] [place] [address] Daylin Diaz PA-C [address] [place] [address] 06/05/2024 2:45 PM EDT Imaging Radiology [address] [place] [address] 06/14/2024 1:40 PM EDT Office Visit Family Medicine [address] [place] [phone] Danika Chairez PA-C [address] [place] [address] [place] [address] 06/19/2024 12:50 PM EDT Laboratory Laboratory [address] [place] [phone] [facility] [address] [place] [address] 06/26/2024 1:00 PM EDT Office Visit Cardiology, [facility] [address] [place] [address] [facility] Cardiology [facility] [address] [place] [address] 06/30/2024 1:20 PM EDT Hospital Encounter OR [facility], Operating Room [facility] [address] [place] [phone] Fabian Bhagat, DO [address] [place] [address] 06/30/2024 1:20 PM EDT - 06/30/2024 1:45 PM EDT Surgery OR [facility], Operating Room [facility] [address] [place] [phone] Fabian Bhagat, DO [address] [place] [address] INJECTION SPINE LUMBAR OR SACRAL 07/03/2024 11:40 AM EDT Office Visit Nutrition & Weight Management, [facility] [address] [place] [address] Tami Garrett PA-C [address] [place] [address] 08/03/2024 1:00 PM EST Office Visit Orthopaedics [facility] [address] [place] [address] Herve Valera PA-C [address] [place] [address] 08/07/2024 1:00 PM EST Laboratory Laboratory [address] [place] [phone] [place] [address] 08/10/2024 1:00 PM EST Office Visit Orthopaedics [facility] [address] [place] [address] Herve Valera PA-C [address] [place] [address] 08/14/2024 2:00 PM EST Office Visit [facility]ology[facility]olog [facility] [address] [place] [phone] Jeanette Arellano MD [address] [place] [address] 08/23/2024 2:55 PM EST Office Visit Urogynecology [facility] [address] [facility] [place] [address] Bay Ferreira MD 132 [facility] [place] [address] Nurse Zach Hrenandez 132 [facility] [place] [address] 08/24/2024 1:00 PM EST [facility] 132 [facility] [place] [address] Herve Valera PA-C [address] [place] [address] 12/19/2024 1:40 PM EDT Office Visit Family Medicine [address] [phone] Yoav Kong MD [address] [place] [address] [place] [address] 01/09/2025 10:30 AM EDT Office Visit Sleep Disorders Ctr [facility] 132 [facility] [place] [phone] Yara Beck CRNP 132 [facility] [place] [address] Scheduled Procedures Name Priority Associated Diagnoses Date/Ti me INJECTION SPINE LUMBAR OR SACRAL Lumbar radiculopathy 06/30/2024 1:20 PM EDT COLONOSCOPY FLEXIBLE PROXIMAL DIAGNOSTIC Recall Colon cancer screening Health Maintenance Due Date Last Done Comments Depression Screening 03/28/2022 03/28/2021 DTap/Tdap Vaccines (2 - Td or Tdap) 06/14/2022 06/14/2012, 09/27/2005 COVID-19 Vaccine ( season) 2024 08/02/2023, 01/27/2022, 07/15/2021, Additional history exists CKD PHOS USE SMARTSET 83132 06/10/202405/22, 06/23/2022, 07/21/2021, Additional history exists GFR 10/18/2024 04/17/2024, 12/19, 06/10/2023, Additional history exists Albumin/Creatinine Ratio 01/18/2025 024, 12/11/2022, 12/16/2021, Additional history exists CKD HGB USE SMARTSET 43848 04/17/202504/17, 01/07/2024, 06/10/2023, Additional history exists TSH [...] encounter Visit Diagnoses Diagnosis History of pulmonary embolism- Primary Personal history of pulmonary embolism Factor V Leiden (HCC) Primary hypercoagulable state Lumbar radiculopathy Thoracic or lumbosacral neuritis or radiculitis, unspecified documented in this encounter Advance Directives Documents on File Type Date Recorded Patient Small Appliance Assembly Supervisor Expl anation Advance Directives and Karrie mata Will 05/20/2016 ADVANCE DIRECTIVE Power of Crew Team Member 05/20/2016 POWER OF A TTORNEY * Full Code (Latest Code Status on File) Date Activated Date Inactivated Comments 08/14/2008 10:37 AM 08/14/2008 10:38 AM Care Teams Patent Lawyer Relationship Specialty Start Date End Date Yoav Kong MD [address] [place] [address] [place] [address] PCP - General Family Medicine 04/09/14 documented as of this encounter
--- OUTSIDE RECORDS SUMMARY | 2024-06-16 04:05 | External Medical Summary | Summary of Care ---
Author Name Unknown Organization [facility] Address [address] [place] [address] Phone [phone] Support Name Relationship Address Phone Lam Trujillo Spouse [address] [facility] [place] [address] Rose Wu Child [address] [facility] [place] [address] [place] [address] [phone] Care Team Providers Care Layout Designer Name Role Phone Yoav Kong MD Primary Care Provide r Reason for Visit * Reason Comments eRx-Medication Refill Encounter Details Date Type Department Care Team (Late st Contact Info) Description 05/06/2024 Refill Family Medicine [address] [phone] Yoav Kong MD [address] [place] [address] [place] [address] Hypothyroidism Allergies Active Allergy Reactions Criticality Noted Date [...] as of this encounter (statuses as of 05/07/2024) Medications Medication Sig Dispensed Refills Start Date [...] of pulmonary embolism,Factor V Leiden (HCC),Anticoagulation management encounter,terminal clerk current use of anticoagulant therapy,Venous thrombosis TAKE [...] as of this encounter (statuses as of 05/07/2024) Active Problems Problem Noted Date Diagnosed Date [...] kidney disease 07/29/2020 Overview: Per CKD protocol Mu-Ism or spiritual beliefs affecting medical care 05/25/2019 [...] pulmonary embolism 12/20/2011 Anticoagulation management encounter 12/14/2011 nursing home current use of anticoagulant therapy 0 [...] as of this encounter (statuses as of 05/07/2024) Resolved Problems Problem Noted Date Diagnosed Date [...] as of this encounter (statuses as of 05/07/2024) Immunizations Name Administration Dates Next Due COVID-19 [...] lent, No Preserve, IM 06/07/2017,06/22/2016,06/17/2015 Seasonal Influenza, Split, I IV3, With Preserve, Inj 06/06/2014,06/22/2013,06/02/2012,06/15,06/10/2010,06/13/2009,07/09/2008 ,07/04/2007 TD - Tetanus/Diptheria (ADULT) 09/27/2005 [...] encounter Miscellaneous Notes * Telephone Encounter - Cheryl Adan [facility] - 05/07/2024 9:16 PM EDTRefused Prescriptions: Disp Refills Levothyroxine Sodium 50 MCG Oral Tablet (L*90 Tab*2 Sig: TAKE 1TABLET BY MOUTH EVERY DAYRefused By: CHERYL ADAN [facility] for Refusal: Too soon documented in this encounter Plan of Treatment Upcoming Encounters Date Type Department Care Team (Late st Contact Info) Description 05/29/2024 9:30 AM EDT Anticoagulation Pharmacy, [address] [place] [address] [place] [address] 05/31/2024 10:30 AM EDT Office Visit Cardiology, [address] [place] [address] Daylin Diaz PA-C [address] [place] [address] 06/05/2024 2:45 PM EDT Imaging Radiology [address] [place] [address] 06/14/2024 1:40 PM EDT Office Visit Family Medicine [address] [place] [phone] Danika Chairez PA-C [address] [place] [address] [place] [address] 06/19/2024 12:50 PM EDT Laboratory Laboratory [address] [place] [phone] [place], Lab [address] [place] [address] 06/26/2024 1:00 PM EDT Office Visit Cardiology, [facility] [address] [place] [address] [facility] Cardiology [facility] [address] [place] [address] 06/30/2024 1:20 PM EDT Hospital Encounter OR [facility], Operating Room [facility] [address] [place] [phone] Fabian Bhagat, [address] [place] [phone] 06/30/2024 1:20 PM EDT - 06/30/2024 1:45 PM EDT Surgery OR [facility], Operating Room [facility] [address] [place] [phone] Fabian Bhagat, [address] [place] [phone] INJECTION SPINE LUMBAR OR SACRAL 07/03/2024 11:40 AM EDT Office Visit Nutrition & Weight Management, [facility] 132 [facility] [place] [address] Tami Garrett PA-C 132 [facility] [place] [address] 08/03/2024 1:00 PM EST Office Visit Orthopaedics [facility] 132 [facility] [place] [address] Herve Valera PA-C [address] [place] [address] 08/07/2024 1:00 PM EST Laboratory Laboratory [address] [place] [phone] [place], [address] [place] [address] 08/10/2024 1:00 PM EST Office Visit Orthopaedics [facility] [address] Herve Valera PA-C [address] [place] [address] 08/14/2024 2:00 PM EST Office Visit Hematology/Oncolog y [facility] [place] [address] [place] [phone] Jeanette Arellano MD [address] [place] [address] 08/23/2024 2:55 PM EST Office Visit [facility]gy[facility]cology [facility] [address] Bay Ferreira MD 132 [facility] [place] [address] Nurse Zach Hernandez [address] [place] [address] 08/24/2024 1:00 PM EST [facility] [place] [address] Herve Valera PA-C [address] [place] [address] 12/19/2024 1:40 PM EDT Office Visit Family Medicine [address] [place] [phone] Yoav Kong MD [address] [place] [address] [place] [address] 01/09/2025 10:30 AM EDT Office Visit Sleep Disorders Ctr [facility] [address] [place] [phone] Yara Beck CRNP 132 [facility] [place] [address] Scheduled Procedures Name Priority Associated Diagnoses Date/Ti me INJECTION SPINE LUMBAR OR SACRAL Lumbar radiculopathy 06/30/2024 1:20 PM EDT COLONOSCOPY FLEXIBLE PROXIMAL DIAGNOSTIC Recall Colon cancer screening Health Maintenance Due Date Last Done Comments Depression Screening 03/28/2022 03/28/2021 DTaP,Tdap,and Td Vaccines (2 - Td or Tdap) 06/14/2022 06/14/2012, 09/27/2005 COVID-19 Vaccine ( - 2022- season) 2023 08/02/2023, 01/27/2022, 07/15/2021, Additional history exists Influenza Vaccine (FLU shot) (#1) 2024 06/05/2023, 06/06/2022, 06/10/2021, Additional history exists CKD PHOS USE SMARTSET 64069 06/10/202405/22, 06/23/2022, 07/21/2021, Additional history exists GFR 10/18/2024 04/17/2024, 12/19, 06/10/2023, Additional history exists Albumin/Creatinine Ratio 01/18/2025 024, 12/11/2022, 12/16/2021, Additional history exists CKD HGB USE SMARTSET 47840 04/17/202504/17, 01/07/2024, 06/10/2023, Additional history exists TSH 04/17/2025 04/17/2024, 05/0 09/2023, 01/07/2024, Additional history exists DXA Scan 06/11/2027 06/11/2020, 10/22, 07/04/2009, Additional history exists Pneumococcal Vaccine: 65+ Years Completed 10/15/2014, 04/24/2009, 06/11/1999 Zoster Vaccines Completed 04/07/2020, 08/20, 05/03/2009 HPV (Gardasil) Vaccine Aged Out No lo [...] as of this encounter Visit Diagnoses Diagnosis Hypothyroidism Unspecified hypothyroidism Lumbar radiculopathy Thoracic or lumbosacral neuritis or radiculitis, unspecified documented in this encounter Advance Directives Documents on File Type Date Recorded Patient Otologist Expl anation Advance Directives and Livmarbella g Will 05/20/2016 ADVANCE DIRECTIVE Power of Local [place] Truck Driver 05/20/2016 POWER OF A TTORNEY * Full Code (Latest Code Status on File) Date Activated Date Inactivated Comments 08/14/2008 10:37 AM 08/14/2008 10:38 AM Care Teams Layout Designer Relationship Specialty Start Date End Date Yoav Kong MD [address] [place] [address] [place] [id number] PCP - General Family Medicine 04/09/14 documented as of this encounter
--- OUTSIDE RECORDS SUMMARY | 2024-06-16 04:06 | External Medical Summary | Summary of Care ---
Author Name Unknown Organization [facility] Address [address] [place] [address] Phone [phone] Care Team Providers Care Branch Library Clerk Name Role Phone Yoav Kong MD Primary Care Provide r Reason for Visit * Reason Comments Dosage Adjustment In Person (Anticoag Cl inic) Encounter Details Date Type Department Care Team (Latest Contact Info) Description 05/01/2024 9:30 AM EDT Anticoagulation Pharmacy, [address] [place] [address] [place] [address] Anticoagulation management encounter*; History of pulmonary embolism; [...] as of this encounter (statuses as of 05/01/2024) Medications Medication Sig Dispensed Refills Start Date [...] pulmonary embolism,Factor V Leiden (HCC),Anticoagulation management encounter,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 [...] as of this encounter (statuses as of 05/01/2024) Active Problems Problem Noted Date Diagnosed Date [...] kidney disease 07/29/2020 Overview: Per CKD protocol Zoroastrian or spiritual beliefs affecting medical care 05/25/2019 [...] pulmonary embolism 12/20/2011 Anticoagulation management encounter 12/14/2011 [facility] current use of anticoagulant therapy 0 12/14/2011 DYSLIPIDEMIA, GOAL LDL BELOW 100 08/29/2009 Overview: Per Lipid Taxonomy. COMMON MIGRAINE WITHOUT MENTION OF INTRACTABLE M IGRAINE 01/01/2003 GENERALIZED ANXIETY DIS 12/19/2001 TEMPOROMANDIBULAR JOINT DISORDERS, UNSPECIFIED Mitral valve disorder Gastroesophageal reflux disease without esophagi tis Other allergic rhinitis Overview: ICD-10 update of inactive term Mitral valve prolapse documented as of this encounter (statuses as of 05/01/2024) Resolved Problems Problem Noted Date Diagnosed Date [...] as of this encounter (statuses as of 05/01/2024) Immunizations Name Administration Dates Next Due COVID-19 [...] of this encounter Progress Notes * Kamala Tijerina RPh - 05/01/2024 9:33 AM EDT Medication Therapy Disease Management - Anticoagulation Patient: Linette Trujillo | : 1945 Subjective Patient-Reported Symptoms: Patient Findings Positives: Upcoming invasive procedure Negatives: Signs/symptoms of thrombosis, Signs/symptoms of bleeding, Change in health, Change in alcohol use, Change in activity, Missed doses, Extra doses, Change in medications, Change in diet/appetite, Bruising Objective Current Warfarin Dose As of 05/01/2024 Warfarin maintenance plan: 2 mg (2 mg x 1) every day INR Result As of 05/01/2024 INR goal: 2.0-3.0 INR used for dosin.9 (05/01/2024) Assessment & Plan Warfarin Plan As of 05/01/2024 Full warfarin instructions: 2 mg every day No change documented: Kamala Tijerina RPh Next INR check: 05/29/2024 Repeat PT/INR in 4 week(s) Weekly dose: not changed Additional Dosing Information: Upcoming procedure on 06/30 requiring 5-day warfarin hold and Lovenox bridge. Additionally, will need INR day of procedure. Will plan to review at next visit. Of note, reviewed 5-days will be needed to complete Lovenox bridge if scheduled from wait list. Patient expressed understanding. Description Eats a green smoothie each day I spent a total of 10-19 minutes (exact time 10 mins) on the date of service in preparation, delivery, and documentation of the care provided to Linette Trujillo excluding any time spent in the performance of separately billed services or time spent by another provider/QHP. Kamala Tijerina [facility] Clinical Pharmacist 05/01/2024, 9:33 AM documented in this encounter Plan of Treatment Upcoming Encounters Date Type Department Care Team (Late st Contact Info) Description 05/29/2024 9:30 AM EDT Anticoagulation Pharmacy, [address] [place] [address] [place] [address] 05/31/2024 10:30 AM EDT Office Visit Cardiology, [facility] [address] [place] [address] Daylin Diaz PA-C [address] [place] [address] 06/05/2024 2:45 PM EDT Imaging Radiology [address] [place] [address] 06/14/2024 1:40 PM EDT Office Visit Family Medicine [address] [place] [phone] Danika Chairez PA-C [address] [place] [address] [place] [address] 06/19/2024 12:50 PM EDT Laboratory Laboratory [address] [place] [phone] [facility] Lab [address] [place] [address] 06/26/2024 1:00 PM EDT Office Visit Cardiology, [facility] [address] [place] [address] [facility] Cardiology [facility] [address] [place] [address] 06/30/2024 1:20 PM EDT Hospital Encounter OR [facility], Operating Room [facility] [address] [place] [phone] Fabian Bhagat DO [address] [place] [phone] 06/30/2024 1:20 PM EDT - 06/30/2024 1:45 PM EDT Surgery OR [facility], Operating Room [facility] [address] [place] [address] Fabian Bhagat, [address] [place] [phone] INJECTION SPINE LUMBAR OR SACRAL 07/03/2024 11:40 AM EDT Office Visit Nutrition & Weight Management, [facility] [address] [place] [address] Tami Garrett PA-C [address] [place] [address] 08/03/2024 1:00 PM EST Office Visit Orthopaedics [facility] [address] [place] [address] Herve Valera PA-C [address] [place] [address] 08/07/2024 1:00 PM EST Laboratory Laboratory [address] [place] [phone] [place] [address] 08/10/2024 1:00 PM EST Office Visit [facility]opaedics [facility] [place] [address] Herve Valera PA-C [address] [place] [address] 08/14/2024 2:00 PM EST Office Visit Hematology/Oncolog y [facility] [address] [place] [phone] Jeanette Arellano MD [address] [place] [address] 08/23/2024 2:55 PM EST Office Visit [facility]rogynecology [facility] [place] [address] Bay Ferreira MD 132 [facility] [place] [address] HernandezNurse Zach williamson [facility] 132 [facility] [place] [address] 08/24/2024 1:00 PM EST Office Visit Orthopaedics [facility] 132 [facility] [place] [address] Herve Valera PA-C [address] [place] [address] 12/19/2024 1:40 PM EDT Office Visit Family Medicine [address] [place] [phone] Yoav Kong MD [address] [place] [address] [place] [address] 01/09/2025 10:30 AM EDT Office Visit Sleep Disorders Ctr [facility] [address] [place] [phone] Yara Beck CRNP [address] [place] [address] Scheduled Procedures Name Priority Associated Diagnoses Date/Ti me INJECTION SPINE LUMBAR OR SACRAL Lumbar radiculopathy 06/30/2024 1:20 PM EDT COLONOSCOPY FLEXIBLE PROXIMAL DIAGNOSTIC Recall Colon cancer screening Health Maintenance Due Date Last Done Comments Depression Screening 03/28/2022 03/28/2021 DTaP,Tdap,and Td Vaccines (2 - Td or Tdap) 06/14/2022 06/14/2012, 09/27/2005 COVID-19 Vaccine ( season) 2023 08/02/2023, 01/27/2022, 07/15/2021, Additional history exists Influenza Vaccine (FLU shot) (#1) 2024 06/05/2023, 06/06/2022, 06/10/2021, Additional history exists CKD PHOS USE SMARTSET 35105 06/10/202405/22, 06/23/2022, 07/21/2021, Additional history exists GFR 10/18/2024 04/17/2024, 12/19, 06/10/2023, Additional history exists Albumin/Creatinine Ratio 01/18/2025 024, 12/11/2022, 12/16/2021, Additional history exists CKD HGB USE SMARTSET 14451 04/17/202504/17, 01/07/2024, 06/10/2023, Additional history exists TSH [...] Comments INR FINGERSTICK, POINT OF CARE STAT 05/01/2024 9:35 AM EDT History of pulmonary embolism Factor V Leiden (HCC) Anticoagulation management encounter documented in this encounter Results * INR FINGERSTICK, POINT OF CARE (05/01/2024 9:35 AM EDT) Fingerstick INR 2.9 INR 9:37 AM EDT LAB[facility]AT[facility] [place] [id number] Blood 05/01/2024 9:35 AM EDT 05/01/2024 9:37 AM EDT Narrative [facility] [place] 55-00 - 05/01/2024 9:37 AM EDT Therapeutic ranges for non-operative patients: Prophylaxsis/treatment of DVT: (Range:2.0-3.0) Treatment of pulmonary embolism:(Range:2.0-3.0) Prevention of systemic embolism from: -tissue heart valves -acute myocardial infarction -valvular heart disease -atrial fibrillation (Range: 2.0-3.0) Mechanical prosthetic valves: (Range: 2.5-3.5) Kamala Tijerina [facility] LAB POINT OF CARE TEST DOCKED DEVICE UNSOLICITED RESULTS [facility] [place] [address] [place] [address] documented in this encounter Visit Diagnoses Diagnosis Anticoagulation management encounter- Primary Encounter for therapeutic drug monitoring History of pulmonary embolism Personal history of pulmonary embolism Factor V Leiden (HCC) Primary hypercoagulable state Lumbar radiculopathy Thoracic or lumbosacral neuritis or radiculitis, unspecified documented in this encounter Advance Directives Documents on File Type Date Recorded Patient Pipe Crew Foreman Expl anation Advance Directives and Karrie mata Will 05/20/2016 ADVANCE DIRECTIVE Power of Leach Tank Tender 05/20/2016 POWER OF A TTORNEY * Full Code (Latest Code Status on File) Date Activated Date Inactivated Comments 08/14/2008 10:37 AM 08/14/2008 10:38 AM Care Teams Branch Library Clerk Relationship Specialty Start Date End Date Yoav Kong MD [address] [place] [address] [place] [address] PCP - General Family Medicine 04/09/14 documented as of this encounter
--- OUTSIDE RECORDS SUMMARY | 2024-06-16 04:06 | External Medical Summary | Summary of Care ---
Author Name Unknown Organization [facility] Address [address] [place] [address] Phone [phone] Care Team Providers Care Airport Duty Manager Name Role Phone Yoav Kong MD Primary Care Provide r Reason for Visit * Reason Onset Date Comments Test Results 04/20/2024 Encounter Details Date Type Department Care Team (Late st Contact Info) Description 04/20/2024 Telephone Cardiology, [facility] [address] [place] [address] Daylin Diaz, DEYVI [address] [place] [phone] Test Results Allergies Active Allergy Reactions Criticality Noted Date [...] as of this encounter (statuses as of 04/20/2024) Medications Medication Sig Dispensed Refills Start Date [...] pulmonary embolism,Factor V Leiden (HCC),Anticoagulation management encounter,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 90 Tablet 3 4 Active Naltrexone HCl [...] 1 Capsule by mouth every morning. 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 COMMON MIGRAINE WITHOUT MENTION OF INTRACTABLE M IGRAINE 01/01/2003 GENERALIZED ANXIETY DIS 12/19/2001 TEMPOROMANDIBULAR JOINT DISORDERS, UNSPECIFIED Mitral valve disorder Gastroesophageal reflux disease without esophagi tis Other allergic rhinitis Overview: ICD-10 update of inactive term Mitral valve prolapse documented as of this encounter (statuses as of 04/20/2024) Resolved Problems Problem Noted Date Diagnosed Date [...] as of this encounter (statuses as of 04/20/2024) Immunizations Name Administration Dates Next Due COVID-19 [...] encounter Miscellaneous Notes * Telephone Encounter - Nick Rios LPN - 04/20/2024 9:08 AM EDT Sent patient a ki work message to make aware. ----- Message from Liudmila Masters sent at 04/20/2024 7:17 AM EDT ----- Reviewed in coverage of Daylin Diaz. Creatinine slightly improved. Encourage good hydration. Electrolytes within normal limits. Liver function stable. Thyroid normal. BNP/fluid marker normal. CBC without abnormality. documented in this encounter Plan of Treatment Upcoming Encounters Date Type Department Care Team (Late st Contact Info) Description 05/01/2024 9:30 AM EDT Anticoagulation Pharmacy, [address] [place] [address] [place] [address] 05/31/2024 10:30 AM EDT Office Visit Cardiology, [facility] [address] [place] [address] Daylin Diaz PA-C [address] [place] [address] 06/05/2024 2:45 PM EDT Imaging Radiology [address] [place] [address] 06/14/2024 1:40 PM EDT Office Visit Family Medicine [address] [place] [phone] Danika Chairez PA-C [address] [place] [address] [place] [address] 06/19/2024 12:50 PM EDT Laboratory Laboratory [address] [place] [phone] Spray, Lab [address] [place] [address] 06/26/2024 1:00 PM EDT Office Visit Cardiology, [facility] [address] [place] [address] [facility] Cardiology [facility] [address] [place] [address] 06/30/2024 1:20 PM EDT Hospital Encounter OR [facility], Operating Room [facility] [address] [place] [phone] Fabian Bhagat, [address] [place] [phone] 06/30/2024 1:20 PM EDT - 06/30/2024 1:45 PM EDT Surgery OR [facility], Operating Room [facility] [address] [place] [phone] Fabian Bhagat DO [address] [place] [phone] INJECTION SPINE LUMBAR OR SACRAL 07/03/2024 11:40 AM EDT Office Visit Nutrition & Weight Management, [facility] 132 [facility] [place] [address] Tami Garrett PA-C [address] [place] [address] 08/03/2024 1:00 PM EST Office Visit [facility]opaedics [facility] [place] [address] Herve Valera PA-C [address] [place] [address] 08/07/2024 1:00 PM EST Laboratory Laboratory [address] [place] [phone] [address] [place] [address] 08/10/2024 1:00 PM EST Office Visit Orthopaedics [facility] 132 [facility] [place] [address] Herve Valera PA-C [address] [place] [address] 08/14/2024 2:00 PM EST Office Visit Hematology/Oncolog y [facility] [place] [address] [place] [phone] Jeanette Arellano MD [address] [place] [address] 08/23/2024 2:55 PM EST Office Visit Urogynecology [facility] 132 [facility] [place] [address] Bay Ferreira MD 132 [facility] [place] [address] Nurse Zach Hernandez [address] [place] [address] 08/24/2024 1:00 PM EST Office Visit [facility]opaedics [facility] [place] [address] Herve Valera PA-C [address] [place] [address] 12/19/2024 1:40 PM EDT Office Visit Family Medicine [address] [place] [phone] Yoav Kong MD [address] [place] [address] [place] [address] 01/09/2025 10:30 AM EDT Office Visit [facility] Disorders Ctr [facility] [place] [phone] Yara Beck CRNP 132 [facility] [place] [phone] Scheduled Procedures Name Priority Associated Diagnoses Date/Ti [...] Additional history exists CKD PHOS USE SMARTSET 93699 06/10/[address]242 09/2022, 06/23/2022, 07/21/2021, Additional history exists GFR 10/18/2024 04/17/2024, 12/19, 06/10/2023, Additional history exists Albumin/Creatinine Ratio 01/18/2025 024, 12/11/2022, 12/16/2021, Additional history exists CKD HGB USE SMARTSET 99877 04/17/202504/17, 01/07/2024, 06/10/2023, Additional history exists TSH [...] Not on filedocumented as of this encounter Advance Directives Documents on File Type Date Recorded Patient Manager Programming Expl anation Advance Directives and Livin g Will 05/20/2016 ADVANCE DIRECTIVE Power of Jig Fitter 05/20/2016 POWER OF A TTORNEY * Full Code (Latest Code Status on File) Date Activated Date Inactivated Comments 08/14/2008 10:37 AM 08/14/2008 10:38 AM Care Teams Airport Duty Manager Relationship Specialty Start Date End Date Yoav Kong MD [address] [place] [address] [place] [address] PCP - General Family Medicine 04/09/14 documented as of this encounter
--- OUTSIDE RECORDS SUMMARY | 2024-06-16 04:06 | External Medical Summary ---
Author Name Unknown Address Unknown Organization : Laboratory Report Ordering Provider Test Date Status PIERO RIVERA 05/01/2024 09:35:47 Final Therapeutic ranges for non-o perative patients:
Prophylaxsis/treatment of DVT: (Range:2.0-3.0)
Treatment of pulmonary embolism:(Range:2.0-3.0)
Prevention of systemic embolism from:
-tissue heart valves
-acute myocardial infarction
-valvular heart disease
-atrial fibrillation
(Range: 2.0-3.0)
Mechanical prosthetic valves: (Range: 2.5-3.5) Observation Date Value Abnormality Reference (Units ) Status INR in Capillary blood by Coagulation assay 05/01/2024 09:35:47 2.9 (INR) Final Performing Location
--- OUTSIDE RECORDS SUMMARY | 2024-06-16 04:06 | External Medical Summary | Summary of Care ---
Author Name Unknown Organization [facility] Address [address] [place] [address] Phone [phone] Care Team Providers Care Cell Operator Name Role Phone Yoav Kong MD Primary Care Provide r Reason for Visit * Reason Comments Follow Up 3 month follow up. S tress Test 03/17/24. SOB with any exertion. Palpitations/Flutter ongoing and only minor improvement with medication changes. Edema ongoing. Denies chest pain and dizziness. Encounter Details Date Type Department Care Team (Late st Contact Info) Description 04/17/2024 11:00 AM EDT Office Visit Cardiology, [facility] [address] [place] [phone] Daylin Diaz PA-C [address] [place] [phone] SOB (shortness of breath)*; Dyspnea on exertion; HTN, goal below 140/90 Allergies Active Allergy Reactions Criticality Noted Date [...] as of this encounter (statuses as of 04/26/2024) Medications Medication Sig Dispensed Refills Start Date [...] pulmonary embolism,Factor V Leiden (HCC),Anticoagulatio n management encounter,USP current use of anticoagulant therapy,Venous thrombosis TAKE [...] 4 Active Gabapentin 100 MG Oral Capsule (Neurontin)Indicatio ns:Neuropathic pain Take 2 capsules by mouth at night for one week then advance to 2 capsules by mouth twice daily thereafter. 120 Capsule 2 4 Active Super B-50 Complex Oral Capsule Take 1 Capsule by mouth every morning. Active B-6 100 MG PO TABS 200mg daily 024 Discontin ued(Patie nt preferenc e/discont inuation) B-12 1000 MCG Oral Capsule Take 1 Capsule by mouth once a day on Wednesday, Wednesday, and Wednesday only. 024 Discontin ued(Patie nt preferenc e/discont inuation) LORazepam 0.5 MG Oral Tablet (Ativan) Take 1 tablet by mouth 45 minutes prior to scheduled MRI. Can repeat 15 minutes prior if additional anxiety relief is required. 2 Tablet 4 024 Discontin ued(End of Procedure ) Gemtesa 75 MG Oral Tablet (Vibegron) Take 1 Tablet by mouth in the morning. 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 COMMON MIGRAINE WITHOUT MENTION OF INTRACTABLE M IGRAINE 01/01/2003 GENERALIZED ANXIETY DIS 12/19/2001 TEMPOROMANDIBULAR JOINT DISORDERS, UNSPECIFIED Mitral valve disorder Gastroesophageal reflux disease without esophagi tis Other allergic rhinitis Overview: ICD-10 update of inactive term Mitral valve prolapse documented as of this encounter (statuses as of 04/26/2024) Resolved Problems Problem Noted Date Diagnosed Date [...] as of this encounter (statuses as of 04/26/2024) Immunizations Name Administration Dates Next Due COVID-19 [...] Sign Reading Time Taken Comments Blood Pressure 118/74 04/17/2024 10:56 AM EDT Pulse 76 04/17/2024 10:56 AM EDT Temperature - - Respiratory Rate 15 04/17/2024 10:56 AM EDT Oxygen Saturation - - Inhaled Oxygen Concentration - - Weight 99.8 kg (220 lb) 04/17/2024 10:56 AM EDT Height - - Body Mass Index 40.9 01/07/2024 11:52 AM EDT documented in this encounter Progress Notes * Daylin Diaz PA-C - 04/17/2024 11:03 AM EDT Cardiology F/U: HPI: Linette Trujillo is a 78 year old female presents for close cardiology follow up. Last clinic evaluation approx 3 months ago with . KRISTY Akhtar for an acute visit with complaintsof palpitations and chest tightness/dyspnea. Cardiac Problems: Leiden factor 5 deficiency with [...] no pulm hypertension. Stable findings from prior echo She also underwent ZIO monitor which demonstrated no concerning arrhythmias and symptomatic ectopy.She was also symptomatic with sinus tachycardia. Finally she also underwent nuclear lexiscan stress testing which was negative for inducible ischemia with normal imaging. Patient presents today feeling poorly. She notes SOB/dyspnea with minimal activity and heart pounding sensation in her chest. She does think metoprolol titration has aided her symptoms but not significantly. Her SOB started after she had multiple episodes of COVID. Feels she never fully recovered. Ongoing edema present. Has varicose veins. No orthopnea, PND. No dizziness, syncope or near syncope. Weight is stable. Review of Systems: See HPI for pertinent positives. All others negative, other than those noted in HPI. 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 Factor V Leiden (HCC) HTN, goal below 140/90 History of pulmonary embolism Hypothyroidism Spider veins of both lower extremities Statin intolerance BIANCA (obstructive sleep apnea) Varicose veins of both legs with edema De Quervain's tenosynovitis Slac (scapholunate advanced collapse) of wrist, right Primary osteoarthritis of first carpometacarpal joint of right hand Adventist or spiritual beliefs affecting medical care Hypertensive kidney disease with stage 3a chronic kidney disease Chronic kidney disease, stage 3a (HCC) Infiltrating ductal carcinoma of left breast (HCC) Laceration of left index finger without foreign body without damage to nail Diastolic dysfunction Obesity, morbid (more than 100 lbs over ideal weight or BMI > 40) (HCC) Social History Tobacco Use Smoking status: Never [...] performed by Roxi Platt MD at OR [facility] CARPAL TUNNEL SURGERY 04/08/2009 right COLONOSCOPY, DIAGNOSTIC (RECTUM) 09/06/2017 normal, repeat 10 yrs/COLONOSCOPY FLEXIBLE PROXIMAL DIAGNOSTIC performed by Jake Espino MD at ENDOSCOPY [facility] CYSTOSCOPY 12/04/2013 CYSTOURETHROSCOPY W/BIOPSY 06/14/1992 microscopic hematuria ECHO EXAM OF HEART (2D ECHO) 2002 MVP and trace MR EGD, FLEXIBLE, DIAGNOSTIC 03/31/2018 normal/ESOPHAGOGASTRODUODENOSCOPY (EGD), FLEXIBLE, TRANSORAL, DIAGNOSTIC performed by Jake Espino MD at ENDOSCOPY [facility] IDENTIFY SENTINEL NODE, RADIOACTIVE TRACER Left 08/20/2021 INJECTION PROCEDURE FOR IDENTIFICATION SENTINEL NODE performed by Roxi Platt MD at [facility] KNEE ARTHROSCOPY/MENISCECTOMY 07/06/2005 right KNEE ARTHROSCOPY/SYNOVECTOMY, MAJOR 07/06/2005 right LOWER LEG TENDON TRANSFER, DEEP 08/14/2008 TRANSFER OR TRANSPLANT SINGLE TENDON LEG DEEP performed by LAVERNE LAU at [facility] MASTECTOMY, PARTIAL Left 08/20/2021 MASTECTOMY PARTIAL performed by Roxi Platt MD at [facility] MISCELLANEOUS ORDER ([facility] ONLY) Right 07/12/2015 Repair [...] performed by Bethel Bliss DO at OR [facility] SACROILIAC JOINT INJECT W/GUIDANCE Bilateral 12/10/2023 INJECTION SACROILIAC JOINT performed by Fabian Bhagat DO at OR [facility] TOTAL HYSTERECTOMY with BSO for fibroids and [...] 1 Tablet by mouth in the morning. Folic Acid 800 MCG Oral Tablet Take [...] DAY IN THE MORNING 90 Tablet 3 Metoprolol Succinate ER 25 MG Oral Tablet Extended Release 24 Hour (Toprol XL) Take 1 Tablet by mouth in the morning. 90 Tablet 3 Repatha SureClick 140 MG/ML Subcutaneous Solution Auto-injector (evolocumab) Inject 140 mg (1 pen) under the skin every 14 days. Remove from refrigerator 30 minutes prior to injection. 6 mL 3 Metamucil Fiber Oral Tablet Chewable Take by mouth. Pantoprazole Sodium 40 MG Oral Tablet Delayed Release (Protonix) TAKE 1 TABLET BY MOUTH ONCE DAILY 30 MINUTES BEFORE THE FIRST MEAL OF THE DAY 90 Tablet 2 Gabapentin 100 MG Oral Capsule (Neurontin) Take 2 capsules by mouth at night for one week then advance to 2 capsules by mouth twice daily thereafter. 120 Capsule 2 Super B-50 Complex Oral Capsule Take 1 Capsule by mouth every morning. Biotin 1000 MCG Oral Tablet Chewable Take by mouth 5,000 mcg daily . (Patient not taking: Reported on 03/15/2024) Naltrexone HCl 50 MG Oral Tablet (Revia) Take 1/2 tab by mouth once a day for 1 week then take 1/2 tab twice a day (morning & late afternoon) (Patient not taking: Reported on 04/17/2024) 30 Tablet3 buPROPion HCl ER (SR) 150 MG Oral Tablet Extended Release 12 Hour (Wellbutrin SR) Take 1 tab by mouth once a day for 1 week then take 1 tab twice a day (morning & late afternoon) (Patient not taking: Reported on 04/17/2024) 60 Tablet 3 Current Facility-Administered Medications Medication Dose Route Frequency Provider Last Rate Last Admin Hylan (Synvisc) inj 16 mg 16 mg Intra-Articular Q Week Herve Valera PA-C 16 mg at 01/20/24 1150 OBJECTIVE/PHYSICAL EXAMINATION: BP 118/74 | Pulse 76 | Resp 15 | Wt 99.8 kg (220 lb) | BMI 40.90 kg/m | BSA 2.08 m General: No [...] masses or organomegaly. No abdominal bruits. Extremities: No edema. No clubbing or cyanosis. Pulses: radial=2/4, posterior tibial=2/4, dorsalis pedis = 2/4. NEURO: No focal deficits. PSYCH: Appropriate affect and insight. DATA Nuclear lexiscan stress test report reviewed: Interpretation Summary Normal Lexiscan myocardial perfusion imaging [...] 111 bpm. Isolated SVEs were occasional (2.4%, 46747), and no SVE Couplets or SVE Triplets were present. Isolated VEs were occasional (4.5%, 36919), VE Couplets were rare (<1.0%, 1731), and [...] absent. Mild secondary mitral regurgitation is present. ASSESSMENT/PLAN: 78 year old female Dyspnea on exertion Most of today's visit was spent discussing her recent symptoms of ongoing dyspnea, reduced functional capacity and palpitations with exercise -we reviewed all her recent cardiac testing which has been essentially unrevealing. -KEVIN was without concerning arrhythmias. She was symptomatic with sinus tach and ectopy -negative nuclear stress testing and echo with preserved EF, no significant valvular disease, gradeI diastolic dysfunction, and no pulm hypertension -she does have edema and some of her symptoms may be related to ongoing volume overload -recommend chest xray and labs including BNP -consider titration of diuretic and or BB. -recommend PFT's given COVID Consider chest CT as well -Finally we also discussed proceeding with more invasive cardiac testing with cardiac catheterization given her ongoing symptoms. However, given her tests were unrevealing, I think we should try to optimize meds and try to see if we can find a pulm answer to her symptoms. -she is in agreement tot this plan. 2. Mitral valve prolapse --mild - stable 3. HTN, goal below 140/90 -At target. Continue Spironolactone and Atenolol 4. Dyslipidemia, goal LDL below 100 -Continue Zetia 5. History of Pulmonary embolism and COVID -PFT's. Consider chest CT -Continue warfarin, reports compliance -Continued management by [facility] coag. 6. Diastolic HF - continue diuretics -BNP and chest X-ray Further recommendations pending above test results. Patient is being evaluated in the cardiology [...] emergencies advised. Follow-up: Return in about 6 weeks (around 05/29/2024). | Check-out note: Blood work today Chest xray today Schedule PFTs 6 week follow up Daylin Diaz PA-C Department of Cardiology This chart was completed in part utilizing [employer] Speech Voice Recognition Software. Grammatical errors, random [...] documented in this encounter Nursing Notes * Nick Rios LPN - 04/17/2024 10:55 AM EDT Patient identified by full name and date of Chief Complaint Patient presents with Follow Up 3 month follow up. Stress Test 03/17/24. SOB with any exertion. Palpitations/Flutter ongoing and only minor improvement with medication changes. Edema ongoing. Denies chest pain and dizziness. Examination Room: 6 Name: Linette Trujillo Date of : (1945). Reason for Visit: 3 month follow up Interim Hospitalization(s): Denies Problems/Concerns: See chief complaint Chest Pain/SOB: See chief complaint [facility] Discussed: Not applicable [facility] is a way you can [...] comprehension of instructions. documented in this encounter Miscellaneous Notes * Result Encounter Note - Liudmila Masters CRNP - 04/20/2024 7:14 AM EDT Reviewed in coverage of Daylin Diaz. Unremarkable chest x-ray documented in this encounter Plan of Treatment Upcoming Encounters Date Type Department Care Team (Late st Contact Info) Description 05/01/2024 9:30 AM EDT Anticoagulation Pharmacy, [address] [place] [phone] [place] [phone] 05/31/2024 10:30 AM EDT Office Visit Cardiology, [facility] [address] [place] [phone] Daylin Diaz PA-C [address] [place] [phone] 06/05/2024 2:45 PM EDT Imaging Radiology [facility] [address] [place] [phone] 06/14/2024 1:40 PM EDT Office Visit Family Medicine [address] [place] [phone] Danika Chairez PA-C [address] [place] [address] [place] [phone] 06/19/2024 12:50 PM EDT Laboratory Laboratory [address] [place] [phone] [place], Lab [address] [place] [address] 06/26/2024 1:00 PM EDT Office Visit Cardiology, [facility] [address] [place] [address] [facility] Cardiology [facility] [address] [place] [phone] 06/30/2024 1:20 PM EDT Hospital Encounter [facility], Operating Room [facility] [address] [place] [phone] Fabian Bhagat DO [address] [place] [phone] 06/30/2024 1:20 PM EDT - 06/30/2024 1:45 PM EDT Surgery [facility], Operating Room [facility] [address] [place] [phone] Fabian Bhagat DO [address] [place] [phone] INJECTION SPINE LUMBAR OR [facility] 07/03/2024 11:40 AM EDT Office Visit Nutrition & Weight Management, [facility] [address] [place] [address] Tami Garrett PA-C [address] [place] [phone] 08/03/2024 1:00 PM EST Office Visit Orthopaedics [facility] [address] [place] [address] Herve Valera PA-C [address] [address] 08/07/2024 1:00 PM EST Laboratory Laboratory [address] [place] [phone] [address] [place] [address] 08/10/2024 1:00 PM EST Office [facility] [place] [address] Herve Valera PA-C [address] [place] [address] 08/14/2024 2:00 PM EST Office Visit Hematology/Oncolog y [facility] Yobany Anderson [address] [place] [phone] Jeanette Arellano MD [address] [place] [phone] 08/23/2024 2:55 PM EST Office Visit Urogynecology [facility] [address] [place] [address] Bay Ferreira MD [address] [place] [phone] HernandezNurse Zach williamson Shayna [address] [place] [phone] 08/24/2024 1:00 PM EST Office Visit Orthopaedics [facility] [place] [address] Herve Valera PA-C [address] [place] [address] 12/19/2024 1:40 PM EDT Office Visit Family Medicine [address] [place] [phone] Yoav Kong MD [address] [place] [address] [place] [address] 01/09/2025 10:30 AM EDT Office Visit Sleep Disorders Ctr [facility] [place] [phone] Yara Beck CRNP [address] [facility] [place] [phone] Scheduled Orders Name Type Priority Associated Diagnoses Orde r Schedule DIFFUSION CAPACITY (DLCO) Procedures Routine Dyspnea on exertion SOB (shortness of breath) Expected: 04/17/2024, Expires: 04/17/2025 SPIROMETRY B/A BRONCHODILATOR Procedures Routine Dyspnea on exertion SOB (shortness of breath) Expected: 04/17/2024, Expires: 04/17/2025 LUNG VOLUMES (PLETHYSMOGRAPHY) Procedures Routine Dyspnea on exertion SOB (shortness of breath) Expected: 04/17/2024, Expires: 04/17/2025 Scheduled Procedures Name Priority Associated Diagnoses Date/Ti [...] Additional history exists CKD PHOS USE SMARTSET 76914 06/10/202405/22, 06/23/2022, 07/21/2021, Additional history exists GFR 10/18/2024 04/17/2024, 12/19, 06/10/2023, Additional history exists Albumin/Creatinine Ratio 01/18/2025 024, 12/11/2022, 12/16/2021, Additional history exists CKD HGB USE SMARTSET 98107 04/17/202504/17, 01/07/2024, 06/10/2023, Additional history exists TSH 04/17/2025 04/17/2024, 05/09/2023, 01/07/2024, Additional history exists DXA Scan 06/11/2027 [...] Procedure Name Priority Date/Time Associated Diagnosis Comments XR CHEST 2 VIEWS Routine 04/17/2024 12:1 0 PM EDT Dyspnea on exertion SOB (shortness of breath) HTN, goal below 140/90 documented in this encounter Results * XR CHEST 2 VIEWS (04/17/2024 12:10 PM EDT) Anatomical Region Laterality Modality Chest Computed Radiogr aphy 04/18/2024 8:13 AM EDT Impressions 04/18/2024 8:11 AM EDT IMPRESSION No active disease. Narrative 04/18/2024 8:11 AM EDT EXAM XR CHEST 2 VIEWS - 04/17/2024 12:10 pm HISTORY "SOB; dyspnea" TECHNIQUE Frontal and lateral views of the chest were obtained. COMPARISON 07/22/2023 FINDINGS The lungs are clear. There is no pleural effusion or pneumothorax. The cardiomediastinal silhouette is within normal limits. Procedure Note Ramiro Bell MD - 04/18/2024 EXAM XR CHEST 2 VIEWS - 04/17/2024 12:10 pm HISTORY "SOB; dyspnea" TECHNIQUE Frontal and lateral views of the chest were obtained. COMPARISON 07/22/2023 FINDINGS The lungs are clear. There is no pleural effusion or pneumothorax. Thecardiomediastinal silhouette is within normal limits. IMPRESSION IMPRESSION No active disease. Daylin Diaz PA-C RADIOLOGY (RAD GENERAL) * MAGNESIUM (04/17/2024 11:57 AM EDT) Magnesium 2.4 1.5 - 2.6 mg/dL 04/17/2024 7:36 PM EDT LABORATORY C Blood Venous blood specimen / Unknown Venipuncture / Unknown 04/17/2024 11:57 AM EDT 04/17/2024 11:57 AM EDT Daylin Diaz PA-C LAB BLOOD [place]RAY [place] LABORATORY [facility] [address] [place] [address] * TSH WITH FREE T4 IF INDICATED (04/17/2024 11:57 AM EDT) Pathologist [facility] TSH 2.01 0.27 - 4.20 uIU/mL 04/17/2024 8:07 PM EDT LABORATORY [facility] Blood Venous blood specimen / Unknown Venipuncture / Unknown 04/17/2024 11:57 AM EDT 04/17/2024 11:57 AM EDT Daylin Diaz PA-C LAB BLOOD GRAY [place] Performing Organization Address [facility] Co de Phone Number LABORATORY [facility] [address] [place] [address] * (ABNORMAL) COMPREHENSIVE METABOLIC PANEL (04/17/2024 11:57 AM EDT) Pathologist [facility] BUN 19 6 - 20 mg/dL 04/17/2024 2:03 PM EDT LAB[facility]ATORY [facility] Creatinine 1.1(H) 0.5 - 1.0 mg/dL 04/17/2024 2:03 PM EDT LAB[facility] Estimated Glomerular Filtration Rate 50(L) >=60 mL/min 04/17/2024 2:03 PM EDT LAB[facility] Comment:eGFR is calculated b ased on the CKD-EPI 2020 equation. Sodium 143 135 - 146 mmol/L 04/17/2024 2:03 PM EDT [facility] Potassium 4.1 3.5 - 5.1 mmol/L 04/17/2024 2:03 PM EDT [facility] Chloride 102 98 - 107 mmol/L 04/17/2024 2:03 PM EDT [facility] CO2 31 22 - 32 mmol/L 04/17/2024 2:03 PM EDT [facility] Anion Gap 10 7 - 15 mmol/L 04/17/2024 2:03 PM EDT [facility] Glucose 99 70 - 120 mg/dL 04/17/2024 2:03 PM EDT LABORATORY [facility] Albumin 4.4 3.8 - 5.0 g/dL 04/17/2024 2:03 PM EDT LABORATORY [facility] AST 27 10 - 35 U/L 04/17/2024 2:03 PM EDT [facility] Alkaline Phosphatase 68 35 - 130 U/L 04/17/2024 2:03 PM EDT LABORATORY [facility] Bilirubin, Total 0.5 <=1.2 mg/dL 04/17/2024 2:03 PM EDT LABORATORY [facility] Calcium 9.7 8.4 - 10.2 mg/dL 04/17/2024 2:03 PM EDT [facility] Protein 6.6 6.0 - 8.3 g/dL 04/17/2024 2:03 PM EDT [facility] ALT 24 10 - 35 U/L 04/17/2024 2:03 PM EDT [facility] Blood Venous blood specimen / Unknown Venipuncture / Unknown 04/17/2024 11:57 AM EDT 04/17/2024 11:57 AM EDT Daylin Diaz PA-C LAB BLOOD ORDE [facility] Organization Address City/State/ZIP Co de Phone Number LABORATORY [place] [phone] [place] [address] [place] [phone] * BNP, NT-PRO (04/17/2024 11:57 AM EDT) Pathologist [facility] BNP, NT-Pro 242 <300 pg/mL 04/17/2024 7:36 PM EDT LABORATORY [facility] Blood Venous blood specimen / Unknown Venipuncture / Unknown 04/17/2024 11:57 AM EDT 04/17/2024 11:57 AM EDT Narrative LABORATORY [facility] - 04/17/2024 7:36 PM EDT Exclude Heart Failure: <300 pg/mL Diagnose Heart Failure: Age <50 yr: >450 pg/mL 50-75 yr: >900 pg/mL >75 yr: >1800 pg/mL GFR is 30-59 mL/min: >1200 pg/mL or Age-adjusted values GFR <30 mL/min: do not use, not reliable Prognostic threshold: 1000 pg/mL Daylin Diaz PA-C LAB BLOOD GRAY [facility] Organization Address City/State/ZIP Co de Phone Number LABORATORY [facility] [address] [place] [address] * CBC (04/17/2024 11:57 AM EDT) WBC 7.92 4.00 - 10.80 K/uL 04/17/2024 1:11 PM EDT LAB[facility]ORY [facility] RBC 4.82 3.85 - 5.15 M/uL 04/17/2024 1:11 PM EDT LAB[facility] HGB 13.8 12.0 - 15.3 g/dL 04/17/2024 1:11 PM EDT LAB[facility] HCT 43.7 36.0 - 45.2 % 04/17/2024 1:11 PM EDT LAB[facility] MCV 90.7 81.5 - 97.5 fL 04/17/2024 1:11 PM EDT LAB[facility] MCH 28.6 27.0 - 34.0 pg 04/17/2024 1:11 PM EDT LAB[facility] MCHC 31.6 32.0 - 36.0 g/dL 04/17/2024 1:11 PM EDT LAB[facility] RDW 14.4 11.5 - 15.5 % 04/17/2024 1:11 PM EDT LAB[facility] PLT 286 140 - 400 K/uL 04/17/2024 1:11 PM EDT LAB[facility] MPV 10.4 6.6 - 11.1 fL 04/17/2024 1:11 PM EDT LAB[facility] Blood Venous blood specimen / Unknown Venipuncture / Unknown 04/17/2024 11:57 AM EDT 04/17/2024 11:57 AM EDT Daylin Diaz PA-C LAB BLOOD [facility]AT[facility] [place] [phone] documented in this encounter Visit Diagnoses Diagnosis SOB (shortness of breath)- Primary Shortness of breath Dyspnea on exertion Other dyspnea and respiratory abnormality HTN, goal below 140/90 Unspecified essential hypertension Lumbar radiculopathy Thoracic or lumbosacral neuritis or radiculitis, unspecified documented in this encounter Advance Directives Documents on File Type Date Recorded 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
--- OUTSIDE RECORDS SUMMARY | 2024-06-16 04:06 | External Medical Summary | Summary of Care ---
Author Name Unknown Organization [facility] Address [address] [place] [address] Phone [phone] Care Team Providers Care Airborne And Air Delivery Specialist Name Role Phone Yoav Kong MD Primary Care Provide r Reason for Visit * Reason Onset Date Comments Test Results 04/20/2024 Encounter Details Date Type Department Care Team (Late st Contact Info) Description 04/20/2024 Telephone Cardiology, [facility] [address] [place] [address] Daylin Diaz, DEYVI [address] [place] [phone] Test Results Allergies Active Allergy Reactions Criticality [...] as of this encounter (statuses as of 04/24/2024) Medications Medication Sig Dispensed Refills Start Date [...] of pulmonary embolism,Factor V Leiden (HCC),Anticoagulation management encounter,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 COMMON MIGRAINE WITHOUT MENTION OF INTRACTABLE M IGRAINE 01/01/2003 GENERALIZED ANXIETY DIS 12/19/2001 TEMPOROMANDIBULAR JOINT DISORDERS, UNSPECIFIED Mitral valve disorder Gastroesophageal reflux disease without esophagi tis Other allergic rhinitis Overview: ICD-10 update of inactive term Mitral valve prolapse documented as of this encounter (statuses as of 04/24/2024) Resolved Problems Problem Noted Date Diagnosed Date [...] as of this encounter (statuses as of 04/24/2024) Immunizations Name Administration Dates Next Due COVID-19 [...] Influenza, Split, I IV3, With Preserve, Inj 06/06/2014,06/22/2013,06/02/2012,05/22,06/10/2010,06/13/2009,07/09/20 08,07/04/2007,07/09/2005,06/23/2004,1 ,07/12/2002,08/15/2001 07/12/2003 TD - Tetanus/Diptheria [...] encounter Miscellaneous Notes * Telephone Encounter - Jordyn Atkins OSA - 04/24/2024 11:41 AM EDT Patient has been notified of the message. Patient has no further questions. * Telephone Encounter - Nick Rios LPN - 04/20/2024 9:08 AM EDT Sent patient a CinnaBid message to make aware. ----- Message from [...] Description 05/01/2024 9:30 AM EDT Anticoagulation Pharmacy, [address] [place] [address] [place] [address] 05/31/2024 10:30 AM EDT Office Visit Cardiology, [facility] [address] [place] [address] Daylin Diaz PA-C [address] [place] [address] 06/05/2024 2:45 PM EDT Imaging Radiology [facility] [address] [place] [address] 06/14/2024 1:40 PM EDT Office Visit Family Medicine [address] [place] [phone] Danika Chairez PA-C [address] [place] [address] [place] [address] 06/19/2024 12:50 PM EDT Laboratory Laboratory [address] [place] [address] [facility] [address] [place] [address] 06/26/2024 1:00 PM EDT Office Visit Cardiology, [facility] [address] [place] [address] [facility] Cardiology [facility] [address] [place] [address] 06/30/2024 1:20 PM EDT Hospital Encounter OR [facility], Operating Room [facility] [address] [place] [phone] Fabian Bhagat DO [address] [place] [address] 06/30/2024 1:20 PM EDT - 06/30/2024 1:45 PM EDT Surgery OR [facility], Operating Room [facility] [address] [place] [phone] Fabian Bhagat DO [address] [place] [phone] INJECTION SPINE LUMBAR OR SACRAL 07/03/2024 11:40 AM EDT Office Visit Nutrition & Weight Management, [facility] [address] [place] [address] Tami Garrett PA-C [address] [place] [address] 08/03/2024 1:00 PM EST Office Visit Orthopaedics [facility] [address] [place] [address] Herve Valera PA-C [address] [place] [address] 08/07/2024 1:00 PM EST Laboratory Laboratory [address] [place] [phone] [place] [address] 08/10/2024 1:00 PM EST Office Visit Orthopaedics [facility] [place] [address] Herve Valera PA-C [address] [place] [address] 08/14/2024 2:00 PM EST Office Visit Hematology/Oncolog y [facility] [address] [place] [phone] Jeanette Arellano MD [address] [place] [address] 08/23/2024 2:55 PM EST Office Visit Urogynecology [facility] [address] [place] [address] Bay Ferreira MD [address] [place] [address] HernandezNurse Zach williamson [facility] [address] [place] [address] 08/24/2024 1:00 PM EST Office Visit Orthopaedics [facility] [address] [place] [address] Herve Valera PA-C [address] [place] [address] 12/19/2024 1:40 PM EDT Office Visit Family Medicine [address] [address] Yoav Kong MD [address] [place] [address] [place] [address] 01/09/2025 10:30 AM EDT Office Visit Sleep Disorders Ctr [facility] 132 [facility] [place] [phone] Yara Beck CRNP 132 [facility] [place] [address] Scheduled Procedures Name Priority Associated Diagnoses Date/Ti [...] Additional history exists CKD PHOS USE SMARTSET 85359 06/10/202405/22, 06/23/2022, 07/21/2021, Additional history exists GFR 10/18/2024 04/17/2024, 12/19, 06/10/2023, Additional history exists Albumin/Creatinine Ratio 01/18/2025 024, 12/11/2022, 12/16/2021, Additional history exists CKD HGB USE SMARTSET 31516 04/17/202504/17, 01/07/2024, 06/10/2023, Additional history exists TSH [...] Documents on File Type Date Recorded Patient Accounts Payable Technician Expl anation Advance Directives and Karrie mata Will 05/20/2016 ADVANCE DIRECTIVE Power of Motorboat Mechanic 05/20/2016 POWER OF A TTORNEY * Full Code (Latest Code Status on File) Date Activated Date Inactivated Comments 08/14/2008 10:37 AM 08/14/2008 10:38 AM Care Teams Airborne And Air Delivery Specialist Relationship Specialty Start Date End Date Yoav Kong MD [address] [place] [address] [place] [address] PCP - General Family Medicine 04/09/14 documented as of this encounter
--- OUTSIDE RECORDS SUMMARY | 2024-06-16 04:06 | External Medical Summary | Summary of Care ---
Author Name Unknown Organization [facility] Address [address] [place] [address] Phone [phone] Care Team Providers Care Preschool Disability Teacher Name Role Phone Yoav Kong MD Primary Care Provide r Encounter Details Date Type Department Care Team (Late st Contact Info) Description 04/17/2024 Telephone Cardiology, [facility] [address] [place] [phone] Daylin Diaz, DEYVI [address] [place] [phone] Allergies Active Allergy Reactions Criticality Noted Date [...] kidney disease 07/29/2020 Overview: Per CKD protocol Rastafarian or spiritual beliefs affecting medical care 05/25/2019 [...] pulmonary embolism 12/20/2011 Anticoagulation management encounter 12/14/2011 long-term current use of anticoagulant therapy 0 12/14/2011 [...] encounter Miscellaneous Notes * Telephone Encounter - Richar Pennington OSA - 04/24/2024 12:49 PM EDT Patient called back, and verified appt on 05/31/24. * Telephone Encounter - Richar Pennington OSA - 04/24/2024 10:28 AM EDT LM for patient to call back and verify appt. * Telephone Encounter - Evelyn Joaquin OSA - 04/21/2024 2:50 PM EDT Called pt and LM * Telephone Encounter - Richar Pennington OSA - 04/18/2024 7:47 AM EDT Patient is scheduled on: RETURN CARDIOLOGY at 10:30 AM (30 min)Arrive by 10:15 AM Friday May 31, 2024 Appointment Provider:Daylin Diaz PA-C in CARDIOLOGY [facility] * Telephone Encounter - Adriane Anand OSA - 04/17/2024 11:46 AM EDT Return In about 6 weeks (around 05/29/2024). Please all for apt documented in this encounter Plan of Treatment Upcoming Encounters Date Type Department Care Team (Late st Contact Info) Description 05/01/2024 9:30 AM EDT Anticoagulation Pharmacy, [address] [place] [address] [place] [address] 05/31/2024 10:30 AM EDT Office Visit Cardiology, [facility] [address] [place] [address] Daylin Diaz PA-C [address] [place] [address] 06/05/2024 2:45 PM EDT Imaging Radiology [place] [address] [address] [place] [address] 06/14/2024 1:40 PM EDT Office Visit Family Medicine [address] [place] [phone] Danika Chairez PA-C [address] [place] [address] [place] [address] 06/19/2024 12:50 PM EDT Laboratory Laboratory [address] [place] [phone] [place], Lab [address] [place] [address] 06/26/2024 1:00 PM EDT Office Visit Cardiology, [facility] [address] [place] [address] [facility] Cardiology [facility] [address] [place] [address] 06/30/2024 1:20 PM EDT Hospital Encounter OR [facility], Operating Room [facility] [address] [place] [phone] Fabian Bhagat, DO [address] [place] [address] 06/30/2024 1:20 PM EDT - 06/30/2024 1:45 PM EDT Surgery OR [facility], Operating Room [facility] [address] [place] [phone] Fabian Bhagat, DO [address] [place] [phone] INJECTION SPINE LUMBAR OR SACRAL 07/03/2024 11:40 AM EDT Office Visit Nutrition & Weight Management, [facility] [address] [place] [address] Tami Garrett PA-C [address] [place] [address] 08/03/2024 1:00 PM EST Office Visit Orthopaedics [facility] [address] [place] [address] Herve Valera PA-C [address] [place] [address] 08/07/2024 1:00 PM EST Laboratory Laboratory [address] [place] [phone] [place], [address] [place] [address] 08/10/2024 1:00 PM EST Office Visit Orthopaedics [facility] 132 [facility] [place] [address] Herve Valera PA-C [address] [place] [address] 08/14/2024 2:00 PM EST Office Visit Hematology/Oncolog y [facility] [address] [place] [phone] Jeanette Arellano MD [address] [place] [address] 08/23/2024 2:55 PM EST Office Visit Urogynecology [facility] [address] [place] [address] Bay Ferreira MD 132 [facility] [place] [place] [address] HernandezNurse Zach williamson [facility] 132 [place] [address] 08/24/2024 1:00 PM EST Office Visit Orthopaedics [facility] 132 [facility] [place] [address] Herve Valera PA-C [address] [place] [address] 12/19/2024 1:40 PM EDT Office Visit Family Medicine [address] [place] [phone] Yoav Kong MD [address] [place] [address] [place] [address] 01/09/2025 10:30 AM EDT Office Visit Sleep Disorders Ctr [facility] [address] [place] [phone] Yara Beck CRNP [address] [place] [address] Scheduled Procedures Name Priority Associated Diagnoses Date/Ti [...] Additional history exists CKD PHOS USE SMARTSET 71865 06/10/202405/22, 06/23/2022, 07/21/2021, Additional history exists GFR 10/18/2024 04/17/2024, 12/19, 06/10/2023, Additional history exists Albumin/Creatinine Ratio 01/18/2025 024, 12/11/2022, 12/16/2021, Additional history exists CKD HGB USE SMARTSET 24243 04/17/202504/17, 01/07/2024, 06/10/2023, Additional history exists TSH [...] Documents on File Type Date Recorded Patient Mica Plate Layer Hand Expl anation Advance Directives and Livin g Will 05/20/2016 ADVANCE DIRECTIVE Power of Bodywork Therapist 05/20/2016 POWER OF A TTORNEY * Full Code (Latest Code Status on File) Date Activated Date Inactivated Comments 08/14/2008 10:37 AM 08/14/2008 10:38 AM Care Teams Preschool Disability Teacher Relationship Specialty Start Date End Date Yoav Kong MD [address] [place] [address] [place] [address] PCP - General Family Medicine 04/09/14 documented as of this encounter
--- OUTSIDE RECORDS SUMMARY | 2024-06-16 04:07 | External Medical Summary | Summary of Care ---
Author Name Unknown Organization [facility] Address [address] [place] [address] Phone [phone] Care Team Providers Care Zipper Slide Attacher Name Role Phone Yoav Kong MD Primary Care Provide r Reason for Visit * Reason Comments Outpatient Testing Encounter Details Date Type Department Care Team (Late st Contact Info) Description 04/17/2024 12:20 PM EDT Laboratory Laboratory, [facility] 132 [facility] [place] [phone] [facility] 132 [facility] [place] [phone] Dyspnea on exertion; SOB (shortness of breath); HTN, goal below 140/90 Allergies Active Allergy [...] as of this encounter (statuses as of 04/17/2024) Medications Medication Sig Dispensed Refills Start Date [...] of pulmonary embolism,Factor V Leiden (HCC),Anticoagulation management encounter,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 COMMON MIGRAINE WITHOUT MENTION OF INTRACTABLE M IGRAINE 01/01/2003 GENERALIZED ANXIETY DIS 12/19/2001 TEMPOROMANDIBULAR JOINT DISORDERS, UNSPECIFIED Mitral valve disorder Gastroesophageal reflux disease without esophagi tis Other allergic rhinitis Overview: ICD-10 update of inactive term Mitral valve prolapse documented as of this encounter (statuses as of 04/17/2024) Resolved Problems Problem Noted Date Diagnosed Date [...] as of this encounter (statuses as of 04/17/2024) Immunizations Name Administration Dates Next Due COVID-19 [...] Description 05/01/2024 9:30 AM EDT Anticoagulation Pharmacy, [address] [place] [address] [place] [address] 06/05/2024 2:45 PM EDT Imaging Radiology [address] [place] [address] 06/14/2024 1:40 PM EDT Office Visit Family Medicine [address] [phone] Danika Chairez PA-C [address] [place] [address] [place] [address] 06/19/2024 12:50 PM EDT Laboratory Laboratory [address] [place] [address] [facility] Lab [address] [place] [address] 06/26/2024 1:00 PM EDT Office Visit Cardiology, [facility] [address] [place] [address] [facility] Cardiology [facility] [address] [place] [address] 06/30/2024 1:20 PM EDT Hospital Encounter OR [facility], Operating Room [facility] [address] [place] [phone] Fabian Bhagat, [address] [place] [address] 06/30/2024 1:20 PM EDT - 06/30/2024 1:45 PM EDT Surgery OR [facility], Operating Room [facility] [address] [place] [phone] Fabian Bhagat, [address] [place] [phone] INJECTION SPINE LUMBAR OR SACRAL 07/03/2024 11:40 AM EDT Office Visit Nutrition & Weight Management, [facility] [address] [place] [address] Tami Garrett PA-C [address] [place] [address] 08/03/2024 1:00 PM EST Office Visit Orthopaedics [facility] [address] [place] [address] Herve Valera PA-C [address] [place] [address] 08/07/2024 1:00 PM EST Laboratory Laboratory [address] [place] [address] [phone] [place] [address] [place] [address] 08/10/2024 1:00 PM EST Office Visit Orthopaedics [facility] 132 [facility] [place] [address] Herve Valera PA-C [address] [place] [address] 08/14/2024 2:00 PM EST Office Visit Hematology/Oncolog y [facility] [place] [address] [place], [place] [phone] Jeanette Arellano MD [address] [place] [address] 08/23/2024 2:55 PM EST Office Visit Urogynecology [facility] [place] [address] Bay Ferreira MD 132 [facility] [place] [address] Nurse Zach Hernandez [facility] 132 [facility] [address] 08/24/2024 1:00 PM EST Office Visit Orthopaedics [facility] 132 [facility] [place] [address] Herve Valera PA-C [address] [place] [address] 12/19/2024 1:40 PM EDT Office Visit Family Medicine [address] [place] [address] Yoav Kong MD [address] [place] [address] [place] [address] 01/09/2025 10:30 AM EDT [facility] [address] [place] [phone] Yara Beck CRNP [address] [place] [address] Pending Results Name Type Priority Associated Diagnoses Date /Time CBC Lab Routine Dyspnea on exertion SOB (shortness of breath) HTN, goal below 140/90 04/17/2024 11:57 AM EDT BNP, NT-PRO Lab Routine Dyspnea on exertion SOB (shortness of breath) HTN, goal below 140/90 04/17/2024 11:57 AM EDT COMPREHENSIVE METABOLIC PANEL Lab Routine Dyspnea on exertion SOB (shortness of breath) HTN, goal below 140/90 04/17/2024 11:57 AM EDT TSH WITH FREE T4 IF INDICATED Lab Routine Dyspnea on exertion SOB (shortness of breath) HTN, goal below 140/90 04/17/2024 11:57 AM EDT MAGNESIUM Lab Routine Dyspnea on exertion SOB (shortness of breath) HTN, goal below 140/90 04/17/2024 11:57 AM EDT Scheduled Procedures Name Priority Associated Diagnoses [...] Additional history exists CKD PHOS USE SMARTSET 25714 06/10/202405/22, 06/23/2022, 07/21/2021, Additional history exists GFR 07/08/2024 01/07/2024, 05/22, 10/16/2022, Additional history exists CKD HGB USE SMARTSET 78128 01/06/202501/06, 06/10/2023, 06/10/2023, Additional history exists Albumin/Creatinine Ratio 01/18/2025 024, 12/11/2022, 12/16/2021, Additional history exists TSH 01/18/2025 01/19/2024, 12/19, 06/10/2023, Additional history exists DXA Scan 06/11/2027 06/11/2020, [...] as of this encounter Visit Diagnoses Diagnosis Dyspnea on exertion Other dyspnea and respiratory abnormality SOB (shortness of breath) Shortness of breath HTN, goal below 140/90 Unspecified essential hypertension Lumbar radiculopathy Thoracic or lumbosacral neuritis or radiculitis, unspecified documented in this encounter Advance Directives Documents on File Type Date Recorded Patient Electronic Warfare Linguist Expl anation Advance Directives and Livmarbella mata Will 05/20/2016 ADVANCE DIRECTIVE Power of Electro Mechanical Assembler 05/20/2016 POWER OF A TTORNEY * Full Code (Latest Code Status on File) Date Activated Date Inactivated Comments 08/14/2008 10:37 AM 08/14/2008 10:38 AM Care Teams Zipper Slide Attacher Relationship Specialty Start Date End Date Yoav Kong MD [address] [place] [address] [place] [address] PCP - General Family Medicine 04/09/14 documented as of this encounter
--- OUTSIDE RECORDS SUMMARY | 2024-06-16 04:07 | External Medical Summary ---
Author Name Unknown Address Unknown Organization [id number]:LAB[facility]ATORY [facility] [place] [address] [place] [address] Laboratory Report Ordering Provider Test Date Status JENNIFER AGUILERA 04/17/2024 11:57:39 Final Observation Date Value Abnormality Reference (Units ) Status WBC, Total 04/17/2024 11:57:39 7.92 4.00-10.8 0 (K/uL) Final RBC 04/17/2024 11:57:39 4.82 3.85-5.15 (M/uL) Final Hemoglobin 04/17/2024 11:57:39 13.8 12.0-15.3 (g/dL) Final HCT 04/17/2024 11:57:39 43.7 36.0-45.2 (%) Final MCV 04/17/2024 11:57:39 90.7 81.5-97.5 (fL) Final MCH 04/17/2024 11:57:39 28.6 27.0-34.0 (pg) Final MCHC 04/17/2024 11:57:39 31.6 32.0-36.0 (g/dL) Final RDW 04/17/2024 11:57:39 14.4 11.5-15.5 (%) Final Platelets 04/17/2024 11:57:39 286 140-400 (K /uL) Final MPV 04/17/2024 11:57:39 10.4 6.6-11.1 ( fL) Final Performing Location LAB[facility]ORY [facility] [place] [address] [place] [address]
--- OUTSIDE RECORDS SUMMARY | 2024-06-16 04:07 | External Medical Summary ---
Author Name Unknown Address Unknown Organization [id number]:[facility] [place] [address] [place] [address] Laboratory Report Ordering Provider Test Date Status JENNIFER AGUILERA 04/17/2024 11:57:39 Final Observation Date Value Abnormality Reference (Units ) Status TSH 04/17/2024 11:57:39 2.01 0.27-4.20 (uIU/mL) Final Performing Location LABORATORY C - [address] [place] [address]
--- OUTSIDE RECORDS SUMMARY | 2024-06-16 04:07 | External Medical Summary | Summary of Care ---
Author Name Unknown Organization [facility] Address [address] [place] [address] Phone [phone] Care Team Providers Care Meat Boner Name Role Phone Yoav Kong MD Primary Care Provide r Reason for Visit * Reason Comments Outpatient Testing Encounter Details Date Type Department Care Team (Latest Contact Info) Description 04/13/2024 10:30 AM EDT Laboratory Laboratory [address] [place] [phone] [place] [address] Gastroesophageal reflux disease without esophagitis; Encounter for long-term (current) use of other medications Allergies Active Allergy Reactions Criticality Noted Date [...] as of this encounter (statuses as of 04/13/2024) Medications Medication Sig Dispensed Refills Start Date End Date Status B-6 100 MG PO TABS 200mg daily Activ e WOMENS MULTIVITAMIN PLUS PO TABS one daily [...] for Dry eyes. Active CPAP once. Active B-12 1000 MCG Oral Capsule Take 1 Capsule by mouth once a day on Wednesday, Wednesday, and Wednesday only. Active Vitamin D3 25 MCG (1000 UT) [...] of pulmonary embolism,Factor V Leiden (HCC),Anticoagulation management encounter,supervisor intermediates current use of anticoagulant therapy,Venous thrombosis TAKE [...] THE MORNING 90 Tablet 3 4 Active LORazepam 0.5 MG Oral Tablet (Ativan) Take 1 tablet by mouth 45 minutes prior to scheduled MRI. Can repeat 15 minutes prior if additional anxiety relief is required. 2 Tablet 4 Active Metoprolol Succinate ER 25 MG Oral Tablet Extended Release 24 Hour (Toprol XL)Indications:Palpit ations Take 1 Tablet by mouth in the morning. 90 Tablet 3 4 Active Naltrexone HCl 50 MG Oral Tablet (Revia) Take 1/2 tab by mouth once a day for 1 week then take 1/2 tab twice a day (morning & late afternoon) 30 Tablet 3 4 Active buPROPion HCl ER (SR) 150 MG Oral Tablet Extended Release 12 Hour (Wellbutrin SR) Take 1 tab by mouth once a day for 1 week then take 1 tab twice a day (morning & late afternoon) 60 Tablet 3 4 Active Repatha SureClick 140 MG/ML Subcutaneous Solution Auto-injector (evolocumab) Inject 140 mg (1 pen) under the skin every 14 days. Remove from refrigerator 30 minutes prior to injection. 6 mL 3 4 Active Gemtesa 75 MG Oral Tablet (Vibegron) Take 1 Tablet by mouth in the morning. Active Metamucil Fiber Oral Tablet Chewable Take [...] daily thereafter. 120 Capsule 2 4 Active Hospital, Clinic, or Other Facility Administered Medication Ordered Dose Route Frequency Start Date End Date Status Hylan (Synvisc) inj 16 mgIndications:Primary osteoarthritis of right knee 16 mg IX QWEEK 07/08/2023 Active documented as of this encounter (statuses as of 04/13/2024) Active Problems Problem Noted Date Diagnosed Date [...] kidney disease 07/29/2020 Overview: Per CKD protocol Druze or spiritual beliefs affecting medical care 05/25/2019 [...] pulmonary embolism 12/20/2011 Anticoagulation management encounter 12/14/2011 detention current use of anticoagulant therapy 0 12/14/2011 DYSLIPIDEMIA, GOAL LDL BELOW 100 08/29/2009 Overview: Per Lipid Taxonomy. COMMON MIGRAINE WITHOUT MENTION OF INTRACTABLE M IGRAINE 01/01/2003 GENERALIZED ANXIETY DIS 12/19/2001 TEMPOROMANDIBULAR JOINT DISORDERS, UNSPECIFIED Mitral valve disorder Gastroesophageal reflux disease without esophagi tis Other allergic rhinitis Overview: ICD-10 update of inactive term Mitral valve prolapse documented as of this encounter (statuses as of 04/13/2024) Resolved Problems Problem Noted Date Diagnosed Date [...] as of this encounter (statuses as of 04/13/2024) Immunizations Name Administration Dates Next Due COVID-19 mRNA, LNP-s, No Pre serve, 2-Dose Series (Moderna) 01/27/2022,07/15/2021,11/29/2020,11/01 COVID-19, MRNA-LNP, 23-24, P F, 30 MCG/0.3 mL, 12 YRS AND ABOVE, IM [facility] 08/02/2023 Pneumococcal Conjugate Vacc, 13 Valent (Prevnar) [...] 04/17/2024 11:00 AM EDT Office Visit Cardiology, [facility] [address] [place] [address] Daylin Diaz PA-C [address] [place] [phone] 05/01/2024 9:30 AM EDT Anticoagulation Pharmacy, [address] [place] [address] [place] [address] 06/05/2024 2:45 PM EDT Imaging Radiology [facility] [address] [place] [address] 06/14/2024 1:40 PM EDT Office Visit Family Medicine [address] [place] [phone] Danika Chairez PA-C [address] [place] [address] [place] [address] 06/19/2024 12:50 PM EDT Laboratory Laboratory [address] [place] [phone] [facility] [address] [place] [address] 06/26/2024 1:00 PM EDT Office Visit Cardiology, [facility] [address] [place] [address] [facility] Cardiology [facility] [address] [place] [address] 06/30/2024 1:20 PM EDT Hospital Encounter OR [facility], Operating Room [facility] [address] [place] [phone] Fabian Bhagat, [address] [place] [phone] 06/30/2024 1:20 PM EDT - 06/30/2024 1:45 PM EDT Surgery OR [facility], Operating Room [facility] [address] [place] [phone] Fabian Bhagat, [address] [place] [phone] INJECTION SPINE LUMBAR OR SACRAL 07/03/2024 11:40 AM EDT Office Visit Nutrition & Weight Management, [facility] [address] [place] [address] Tami Garrett PA-C [address] [place] [address] 08/03/2024 1:00 PM EST Office Visit Orthopaedics [facility] 132 [facility] [place] [address] Herve Valera PA-C [address] [place] [address] 08/07/2024 1:00 PM EST Laboratory Laboratory [address] [place] [phone] [place] [address] 08/10/2024 1:00 PM EST Office Visit [facility] 132 [facility] [place] [address] Herve Valera PA-C [address] [place] [address] 08/14/2024 2:00 PM EST Office Visit Hematology/Oncolog y [facility] [address] [place] [phone] Jeanette Arellano MD [address] [place] [address] 08/23/2024 2:55 PM EST Office Visit Urogynecology [facility] 132 [facility] [place] [address] Bay Ferreira MD [address] [place] [phone] Nurse Zach Hernandez [address] [place] [phone] 08/24/2024 1:00 PM EST Office Visit Orthopaedics [facility] [address] [place] [address] Herve Valera PA-C [address] [place] [address] 12/19/2024 1:40 PM EDT Office Visit Family [address] [place] [phone] Yoav Kong MD [address] [place] [address] [place] [address] 01/09/2025 10:30 AM EDT Office Visit Sleep Disorders Ctr [facility] [address] [place] [phone] Yara Beck CRNP [address] [place] [phone] Pending Results Name Type Priority Associated Diagnoses Date /Time VITAMIN B12 Lab Routine Gastroesophageal reflux disease without esophagitis Encounter for long-term (current) use of other medications 04/13/2024 10:34 AM EDT Scheduled Procedures Name Priority Associated [...] Additional history exists CKD PHOS USE SMARTSET 76638 06/10/2024/09/2022, 06/23/2022, 07/21/2021, Additional history exists GFR 07/08/2024 01/07/2024, 05/22, 10/16/2022, Additional history exists CKD HGB USE SMARTSET 85212 01/06/202501/06, 06/10/2023, 06/10/2023, Additional history exists Albumin/Creatinine Ratio 01/18/2025 024, 12/11/2022, 12/16/2021, Additional history exists TSH 01/18/2025 01/19/2024, 12/19, 06/10/2023, Additional history exists DXA Scan 06/11/2027 06/11/2020, 10/22, 07/04/2009, Additional history exists Hepatitis C Screening Completed 01/05/2012 Pneumococcal Vaccine: 65+ Years Completed 10/15/2014, 04/24/2009, 06/11/1999 Zoster Vaccines Completed 04/07/2020, 08/20, 05/03/2009 *BASELINE EKG FOR HTN Completed 01/05/2024 , 02/04/2023, 12/25/2021, Additional history exists HPV (Gardasil) Vaccine Aged [...] as of this encounter Visit Diagnoses Diagnosis Gastroesophageal reflux disease without esophagitis Esophageal reflux Encounter for long-term (current) use of other medications Lumbar radiculopathy Thoracic or lumbosacral neuritis or radiculitis, unspecified documented in this encounter Advance Directives Documents on File Type Date Recorded Patient Enrichment Director Expl anation Advance Directives and Livin g Will 05/20/2016 ADVANCE DIRECTIVE Power of Health And Wellness Manager 05/20/2016 POWER OF A TTORNEY * Full Code (Latest Code Status on File) Date Activated Date Inactivated Comments 08/14/2008 10:37 AM 08/14/2008 10:38 AM Care Teams Meat Boner Relationship Specialty Start Date End Date Yoav Kong MD [address] [place] [address] [place] [phone] PCP - General Family Medicine 04/09/14 documented as of this encounter
--- OUTSIDE RECORDS SUMMARY | 2024-06-16 04:07 | External Medical Summary ---
Author Name Unknown Address Unknown Organization [id number]:[facility] [place] [address] [place] [address] Laboratory Report Ordering Provider Test Date Status NISHANT BOLANOS 04/13/2024 10:34:40 Final Observation Date Value Abnormality Reference (Units ) Status Vitamin B12 04/13/2024 10:34:40 [phone] (pg/mL) Final Performing Location [facility] [place] [address] [place] [address]
--- OUTSIDE RECORDS SUMMARY | 2024-06-16 04:07 | External Medical Summary | Summary of Care ---
Author Name Unknown Organization [facility] Address [address] [place] [address] Phone [phone] Care Team Providers Care Warehouse Inventory Clerk Name Role Phone Yoav Kong MD Primary Care Provide r Reason for Visit * Reason Onset Date Comments Appointment 01/07/2024 Encounter Details Date Type Department Care Team (Late st Contact Info) Description 01/07/2024 Telephone Cardiology, [facility] [address] [place] [phone] Mary Verde CRNP [address] [place] [phone] Appointment Allergies Active Allergy Reactions Criticality Noted Date [...] as of this encounter (statuses as of 04/07/2024) Medications Medication Sig Dispensed Refills Start Date [...] mouth in the morning. 06/10/20 22 Active Biotin 1000 MCG Oral Tablet Chewable Take by mouth 5,000 mcg daily . 06/10/20 22 Active Folic Acid 800 MCG Oral Tablet Take 1 Tablet by mouth in the morning. 06/10/20 22 Active high fiber LIQD Take by mouth. High Fiber packet once a day Active Warfarin Sodium 2 MG Oral Tablet (Coumadin)Indicatio ns:History of pulmonary embolism,Factor V Leiden (HCC),Anticoagulati on management encounter,care home current use of anticoagulant [...] DAY 90 Tablet 2 12/17/19 24 Active Klor-Con M10 10 MEQ Oral Tablet Extended Release (potassium chloride ER)Indications:Terry a TAKE 1 TABLET BY MOUTH EVERY DAY IN THE MORNING 90 Tablet 3 12/30/19 23 2023 Discontinued Pramipexole Dihydrochloride 0.125 MG Oral Tablet (Mirapex)Indication s:Restless legs syndrome (RLS) TAKE 1 TABLET BY MOUTH 90 MINUTES PRIOR TO TYPICAL ONSET OF RESTLESS LEG SYMPTOMS 90 Tablet 3 03/30/20 23 2023 Discontinued Pantoprazole Sodium 40 MG Oral Tablet Delayed Release (Protonix)Indicatio ns:Gastroesophageal reflux disease without esophagitis TAKE 1 TAB BY MOUTH DAILY 30 MINUTES BEFORE THE FIRST MEAL OF THE DAY 90 Tablet 3 05/31/20 23 2023 Discontinued Atenolol 25 MG Oral Tablet (Tenormin)Indicatio ns:HTN, goal below 140/90,Mitral valve disorder TAKE 1 TABLET BY MOUTH EVERY DAY 90 Tablet 3 07/22/20 23 2023 Discontinued(M edication/Dose Changed) Wegovy 0.25 MG/0.5ML Subcutaneous Solution Auto-injector (Semaglutide-Weight Management)Indicati ons:Morbid obesity due to excess calories (HCC) Inject 0.25 mg under the skin once a week. 2 mL 12/24/19 24 2023 Discontinued(P atient preference/dis continuation) Hospital, Clinic, or Other Facility Administered Medication Ordered Dose Route Frequency Start Date End Date Status Hylan (Synvisc) inj 16 mgIndications:Primary osteoarthritis of right knee 16 mg IX QWEEK 07/08/2023 Active documented as of this encounter (statuses as of 04/07/2024) Active Problems Problem Noted Date Diagnosed Date [...] kidney disease 07/29/2020 Overview: Per CKD protocol Yazdanism or spiritual beliefs affecting medical care 05/25/2019 [...] as of this encounter (statuses as of 04/07/2024) Resolved Problems Problem Noted Date Diagnosed Date [...] as of this encounter (statuses as of 04/07/2024) Immunizations Name Administration Dates Next Due COVID-19 [...] Assigned at Not on file Gender Identity Not on file Sexual Orientation Not on file Job Start Date Occupation Industry Not on file Not on file Not on file documented as of this encounter Miscellaneous Notes * Telephone Encounter - Richar Pennington OSA - 01/07/2024 4:00 PM EDT Patient is ordered a NM Test and an ECHO. TO be done after 01/22/24. Please see note, and call patient to schedule. Thank you. Needs echocardiogram and Nuclear stress test in near future. She is wearing a zio monitor starting today so please wait to schedule the echo and stress test tilafter the monitor is off (01/21 or after) NM MYOCARD PERF IMG SPECT MULT STUDIES WITH PHARM INTERV [21257.02] (Order [id number]) ECHO, COMPLETE (2D), TRANS-THORACIC [[id number]] (Order [id number]) documented in this encounter Plan of Treatment Upcoming Encounters Date Type Department Care Team (Late st Contact Info) Description 04/17/2024 11:00 AM EDT Office Visit Cardiology, [facility] [address] [place] [address] Daylin Diaz PA-C 132 [facility] [place] [address] 05/01/2024 9:30 AM EDT Anticoagulation Pharmacy, [address] [place] [address] [place] [address] 06/05/2024 2:45 PM EDT Imaging Radiology [address] [place] [address] 06/14/2024 1:40 PM EDT Office Visit Family Medicine [address] [place] [phone] Danika Chairez PA-C [address] [place] [address] [place] [address] 06/19/2024 12:50 PM EDT Laboratory Laboratory [address] [place] [phone] [address] [place] [address] 06/26/2024 1:00 PM EDT Office Visit Cardiology, [facility] [address] [place] [address] [facility] Cardiology [facility] [address] [place] [address] 06/30/2024 1:20 PM EDT Hospital Encounter OR [facility], Operating Room [facility] [address] [place] [phone] Fbaian Bhagat, [address] [place] [phone] 06/30/2024 1:20 PM EDT - 06/30/2024 1:45 PM EDT Surgery OR [facility], Operating Room [facility] [address] [place] [phone] Fabian Bhagat, [address] [place] [phone] INJECTION SPINE LUMBAR OR SACRAL 07/03/2024 11:40 AM EDT Office Visit Nutrition & Weight Management, [facility] [address] [place] [address] Tami Garrett PA-C [address] [place] [phone] 08/03/2024 1:00 PM EST Office Visit Orthopaedics [facility] [address] [place] [address] Herve Valera PA-C [address] [place] [address] 08/07/2024 1:00 PM EST Laboratory Laboratory [address] [place] [phone] [place], [address] [place] [address] 08/10/2024 1:00 PM EST [facility] [address] [place] [address] Herve Valera PA-C [address] [place] [address] 08/14/2024 2:00 PM EST Office Visit Hematology/Oncolog y [facility] [address] [place], [place] [phone] Jeanette Arellano MD [address] [place] [address] 08/23/2024 2:55 PM EST Office [facility] [address] [place] [address] Bay Ferreira MD [address] [place] [address] Nurse Zach Hernandez [address] [place] [address] 08/24/2024 1:00 PM EST Office Visit Orthopaedics [facility] [address] [place] [address] Herve Valera PA-C [address] [place] [address] 12/19/2024 1:40 PM EDT Office Visit [address] [place] [phone] Yoav Kong MD [address] [place] [address] [place] [address] 01/09/2025 10:30 AM EDT Office Visit [facility] Disorders C[facility] [address] [place] [phone] Yara Beck CRNP [address] [place] [address] Scheduled Procedures Name Priority Associated Diagnoses Date/Ti [...] Additional history exists CKD PHOS USE SMARTSET 29061 06/10/202405/22, 06/23/2022, 07/21/2021, Additional history exists GFR 07/08/2024 01/07/2024, 05/22, 10/16/2022, Additional history exists CKD HGB USE SMARTSET 56461 01/06/202501/06, 06/10/2023, 06/10/2023, Additional history exists Albumin/Creatinine [...] Documents on File Type Date Recorded Patient Interpreter Expl anation Advance Directives and Livin g Will 05/20/2016 ADVANCE DIRECTIVE Power of Strapper Operator 05/20/2016 POWER OF A TTORNEY * Full Code (Latest Code Status on File) Date Activated Date Inactivated Comments 08/14/2008 10:37 AM 08/14/2008 10:38 AM Care Teams Warehouse Inventory Clerk Relationship Specialty Start Date End Date Yoav Kong MD [address] [place] [address] [place] [address] PCP - General Family Medicine 04/09/14 documented as of this encounter
--- OUTSIDE RECORDS SUMMARY | 2024-06-16 04:07 | External Medical Summary ---
Author Name Unknown Address Unknown Organization K01:LABORATORY C - [address] [place] [address] Laboratory Report Ordering Provider Test Date Status JENNIFER AGUILERA 04/17/2024 11:57:39 Final Observation Date Value Abnormality Reference (Units ) Status Magnesium 04/17/2024 11:57:39 2.4 1.5-2.6 (m g/dL) Final Performing Location LABORATORY [facility] - [address] [place] [address]
--- OUTSIDE RECORDS SUMMARY | 2024-06-16 04:07 | External Medical Summary ---
Author Name Unknown Address Unknown Organization K0G:LAB[facility]ATORY [facility] - [address] [place] [address] Laboratory Report Ordering Provider Test Date Status JENNIFER AGUILERA 04/17/2024 11:57:39 Final Observation Date Value Abnormality Reference (Units ) Status BUN 04/17/2024 11:57:39 19 6-20 (mg/dL) Final Creatinine 04/17/2024 11:57:39 1.1 Above high normal 0.5-1.0 (mg/dL) Final Glomerular filtration rate/1.73 sq M.predicted [Volume Rate/Area] in Serum, Plasma or Blood by Creatinine-based formula (CKD-EPI) 04/17/2024 11:57:39 50 Below low normal >=60 (mL/min) Final eGFR is calculated based on the CKD-EPI 2020 equation. Sodium 04/17/2024 11:57:39 143 135-146 (m mol/L) Final Potassium 04/17/2024 11:57:39 4.1 3.5-5.1 (m mol/L) Final Cl 04/17/2024 11:57:39 102 98-107 (mm ol/L) Final CO2 04/17/2024 11:57:39 31 22-32 (mmo l/L) Final Anion gap 04/17/2024 11:57:39 10 7-15 (mmol /L) Final Glucose 04/17/2024 11:57:39 99 70-120 (mg /dL) Final Albumin 04/17/2024 11:57:39 4.4 3.8-5.0 (g /dL) Final AST (Aspartate aminotransferase) 04/17/2024 11:57:39 27 10-35 (U/L) Final Alk Phos 04/17/2024 11:57:39 68 35-130 (U/ L) Final Bilirubin, Total 04/17/2024 11:57:39 0.5 <=1 .2 (mg/dL) Final Calcium 04/17/2024 11:57:39 9.7 8.4-10.2 ( mg/dL) Final Protein 04/17/2024 11:57:39 6.6 6.0-8.3 (g /dL) Final ALT (Alanine aminotransferase) 04/17/2024 11:57:39 24 10-35 (U/L) Final Performing Location [facility] [address] [place] [address]
--- OUTSIDE RECORDS SUMMARY | 2024-06-16 04:07 | External Medical Summary ---
Author Name Unknown Address Unknown Organization K01:LABORATORY [facility] - [facility] [place] [place] [address] Laboratory Report Ordering Provider Test Date Status JENNIFER AGUILERA 04/17/2024 11:57:39 Final Exclude Heart Failure: <300 pg/mL
Diagnose Heart Failure:
Age <50 yr: >450 pg/mL
50-75 yr: >900 pg/mL
>75 yr: >1800 pg/mL
GFR is 30-59 mL/min: >1200 pg/mL or Age- adjusted values
GFR <30 mL/min: do not use, not reliable

Prognostic threshold: 1000 pg/mL Observation Date Value Abnormality Reference (Units ) Status BNP, Pro-hormone 04/17/2024 11:57:39 242 <30 0 (pg/mL) Final Performing Location LABORATORY [facility] - [facility] [address] [place] [address]
--- OUTSIDE RECORDS SUMMARY | 2024-06-16 04:08 | External Medical Summary ---
Author Name Unknown Address Unknown Organization : Laboratory Report Ordering Provider Test Date Status PIERO RIVERA 04/03/2024 11:48:47 Final Therapeutic ranges for non-o perative patients:
Prophylaxsis/treatment of DVT: (Range:2.0-3.0)
Treatment of pulmonary embolism:(Range:2.0-3.0)
Prevention of systemic embolism from:
-tissue heart valves
-acute myocardial infarction
-valvular heart disease
-atrial fibrillation
(Range: 2.0-3.0)
Mechanical prosthetic valves: (Range: 2.5-3.5) Observation Date Value Abnormality Reference (Units ) Status INR in Capillary blood by Coagulation assay 04/03/2024 11:48:47 2.5 (INR) Final Performing Location
--- OUTSIDE RECORDS SUMMARY | 2024-06-16 04:08 | External Medical Summary | Summary of Care ---
Author Name Unknown Organization [facility] Address [address] [place] [place] [address] Phone [phone] Care Team Providers Care Mailing Clerk Name Role Phone Yoav Kong MD Primary Care Provide r Encounter Details Date Type Department Care Team (Late st Contact Info) Description 03/24/2024 Orders Only PATIENT PORTAL DO NOT DELETE THIS DEPT USED BY [place] LOPEZ [id number] Allergies Active Allergy Reactions Criticality Noted Date [...] as of this encounter (statuses as of 03/24/2024) Medications Medication Sig Dispensed Refills Start Date [...] of pulmonary embolism,Factor V Leiden (HCC),Anticoagulation management encounter,adjunct faculty for medical terminology current use of anticoagulant therapy,Venous thrombosis TAKE [...] THE DAY 90 Tablet 2 4 Active Hospital, Clinic, or Other Facility Administered Medication Ordered Dose Route Frequency Start Date End Date Status Hylan (Synvisc) inj 16 mgIndications:Primary osteoarthritis of right knee 16 mg IX QWEEK 07/08/2023 Active documented as of this encounter (statuses as of 03/24/2024) Active Problems Problem Noted Date Diagnosed Date [...] kidney disease 07/29/2020 Overview: Per CKD protocol Mormon or spiritual beliefs affecting medical care 05/25/2019 [...] pulmonary embolism 12/20/2011 Anticoagulation management encounter 12/14/2011 alf current use of anticoagulant therapy 0 12/14/2011 DYSLIPIDEMIA, GOAL LDL BELOW 100 08/29/2009 Overview: Per Lipid Taxonomy. COMMON MIGRAINE WITHOUT MENTION OF INTRACTABLE M IGRAINE 01/01/2003 GENERALIZED ANXIETY DIS 12/19/2001 TEMPOROMANDIBULAR JOINT DISORDERS, UNSPECIFIED Mitral valve disorder Gastroesophageal reflux disease without esophagi tis Other allergic rhinitis Overview: ICD-10 update of inactive term Mitral valve prolapse documented as of this encounter (statuses as of 03/24/2024) Resolved Problems Problem Noted Date Diagnosed Date [...] as of this encounter (statuses as of 03/24/2024) Immunizations Name Administration Dates Next Due COVID-19 [...] Care Team (Late st Contact Info) Description 04/03/2024 11:40 AM EDT Anticoagulation Pharmacy, [address] [place] [address] [place] [address] 04/17/2024 11:00 AM EDT Office Visit Cardiology, [facility] [address] [place] [address] Daylin Diaz PA-C 132 [place] [address] 06/05/2024 2:45 PM EDT Imaging Radiology [address] 132 [place] [address] 06/14/2024 1:40 PM EDT Office Visit Family Medicine [address] [place] [phone] Danika Chairez PA-C [address] [place] [address] [place] [address] 06/19/2024 12:50 PM EDT Laboratory Laboratory [address] [place] [phone] [place], Lab [address] [place] [address] 06/26/2024 1:00 PM EDT Office Visit Cardiology, [facility] 132 [facility] [place] [address] [facility] Cardiology [address] [place] [address] 07/03/2024 11:40 AM EDT Office Visit Nutrition & Weight Management, [facility] 132 [facility] [place] [address] Tami Garrett PA-C 132 [facility] [place] [address] 08/03/2024 1:00 PM EST Office Visit Orthopaedics [facility] 132 [facility] [place] [address] Herve Valera PA-C [address] [place] [address] 08/07/2024 1:00 PM EST Laboratory Laboratory [address] [place] [phone] [place] [address] 08/10/2024 1:00 PM EST Office Visit Orthopaedics [facility] 132 [facility] [place] [address] Herve Valera PA-C [address] [place] [address] 08/14/2024 2:00 PM EST Office Visit Hematology/Oncology [facility] [address] [place] [phone] Jeanette Arellano MD 200 [facility] [place] [address] 08/23/2024 2:55 PM EST Office Visit Urogynecology [facility] 132 [facility] [place] [address] Bay Ferreira MD 132 [facility] [place] [address] Nurse Zach Hernandez 132 [facility] [address] 08/24/2024 1:00 PM EST [facility] [address] [place] [address] Herve Valera PA-C [address] [place] [address] 12/19/2024 1:40 PM EDT Office Visit Family Medicine [address] [phone] Yoav Kong MD [address] [place] [address] [place] [address] 01/09/2025 10:30 AM EDT [facility] 132 [facility] [place] [phone] Yara Beck CRNP 132 [facility] [address] Scheduled Procedures Name Priority Associated Diagnoses Date/Ti [...] Additional history exists CKD PHOS USE SMARTSET 57140 06/10/202405/22, 06/23/2022, 07/21/2021, Additional history exists GFR 07/08/2024 01/07/2024, 05/22, 10/16/2022, Additional history exists CKD HGB USE SMARTSET 13183 01/06/202501/06, 06/10/2023, 06/10/2023, Additional history exists Albumin/Creatinine [...] Documents on File Type Date Recorded Patient Purchasing Department Clerk Expl anation Advance Directives and Karrie Gutierrez 05/20/2016 ADVANCE DIRECTIVE Power of Weight Count Operator 05/20/2016 POWER OF A TTORNEY * Full Code (Latest Code Status on File) Date Activated Date Inactivated Comments 08/14/2008 10:37 AM 08/14/2008 10:38 AM Care Teams Mailing Clerk Relationship Specialty Start Date End Date Dilan, Doriann Sheriff, MD [address] [place] [address] [place] [phone] PCP - General Family Medicine 04/09/14 documented as of this encounter
--- OUTSIDE RECORDS SUMMARY | 2024-06-16 04:08 | External Medical Summary | Summary of Care ---
Author Name Unknown Organization [facility] Address [address] [place] [address] Phone [phone] Care Team Providers Care Cane Flume Watchman Name Role Phone Yoav Kong MD Primary Care Provide r Reason for Visit * Reason Comments Dosage Adjustment In Person (Anticoag Cl inic) Encounter Details Date Type Department Care Team (Latest Contact Info) Description 04/03/2024 11:40 AM EDT Anticoagulation Pharmacy, [address] [place] [address] [place] [address] Anticoagulation management encounter*; History of pulmonary embolism; [...] as of this encounter (statuses as of 04/03/2024) Medications Medication Sig Dispensed Refills Start Date [...] of pulmonary embolism,Factor V Leiden (HCC),Anticoagulation management encounter,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,Venous thrombosis TAKE [...] as of this encounter (statuses as of 04/03/2024) Active Problems Problem Noted Date Diagnosed Date [...] as of this encounter (statuses as of 04/03/2024) Resolved Problems Problem Noted Date Diagnosed Date [...] as of this encounter (statuses as of 04/03/2024) Immunizations Name Administration Dates Next Due COVID-19 [...] Progress Notes * Kamala Tijerina RPh - 04/03/2024 11:37 AM EDT Medication Therapy Disease Management - Anticoagulation Patient: Linette Trujillo | : 1945 Subjective Patient-Reported Symptoms: Patient Findings Negatives: Signs/symptoms of thrombosis, Signs/symptoms of bleeding, Change in health, Change in alcohol use, Change in activity, Upcoming invasive procedure, Missed doses, Extra doses, Change in medications, Change in diet/appetite, Bruising Objective Current Warfarin Dose As of 04/03/2024 Warfarin maintenance plan: 2 mg (2 mg x 1) every day INR Result As of 04/03/2024 INR goal: 2.0-3.0 INR used for dosin.5 (04/03/2024) Assessment & Plan Warfarin Plan As of 04/03/2024 Full warfarin instructions: 2 mg every day No change documented: Kamala Tijerina RPh Next INR check: 05/01/2024 Repeat PT/INR in 4 week(s) Weekly dose: not changed Additional Dosing Information: Description Eats a green smoothie each day Kamala Tijerina RPh Clinical Pharmacist 04/03/2024, 11:37 AM documented in this encounter Plan of Treatment Upcoming Encounters Date Type Department Care Team (Late st Contact Info) Description 04/17/2024 11:00 AM EDT Office Visit Cardiology, [facility] [place] [address] Daylin Diaz PA-C [address] [place] [address] 05/01/2024 9:30 AM EDT Anticoagulation Pharmacy, [address] [place] [address] [place] [address] 06/05/2024 2:45 PM EDT Imaging Radiology [facility] [address] [place] [address] 06/14/2024 1:40 PM EDT Office Visit Family Medicine [address] [place] [phone] Danika Chairez PA-C [address] [place] [address] [place] [address] 06/19/2024 12:50 PM EDT Laboratory Laboratory [address] [place] [phone] [facility] Lab [address] [place] [address] 06/26/2024 1:00 PM EDT Office Visit Cardiology, [facility] 132 [facility] [place] [address] [facility] Cardiology [place] [address] [facility] [place] [address] 07/03/2024 11:40 AM EDT Office Visit Nutrition & Weight Management, [facility] 132 [facility] [place] [address] Tami Garrett PA-C [address] [place] [address] 08/03/2024 1:00 PM EST Office Visit Orthopaedics [facility] 132 [facility] [place] [address] Herve Valera PA-C [address] [place] [address] 08/07/2024 1:00 PM EST Laboratory Laboratory [address] [place] [phone] [address] [place] [address] 08/10/2024 1:00 PM EST Office Visit Orthopaedics [facility] 132 [facility] [place] [address] Herve Valera PA-C [address] [place] [address] 08/14/2024 2:00 PM EST Office Visit Hematology/Oncology [facility] [address] [place] [phone] Jeanette Arellano MD 200 [facility] [place] [address] 08/23/2024 2:55 PM EST Office Visit Urogynecology [facility] 132 [facility] [place] [address] Bay Ferreira MD 132 [facility] [place] [address] Nurse Zach Hernandez 132 [facility] [place] [address] 08/24/2024 1:00 PM EST [facility] 132 [facility] [place] [address] Herve Valera PA-C [address] [place] [address] 12/19/2024 1:40 PM EDT Office Visit Family [address] [place] [phone] Yoav Kong MD [address] [place] [address] [place] [address] 01/09/2025 10:30 AM EDT Office Visit Sleep Disorders Ctr [facility] 132 [facility] [place] [phone] Yara Beck CRNP 132 [facility] [place] [address] Scheduled Procedures Name Priority Associated Diagnoses Date/Ti [...] Additional history exists CKD PHOS USE SMARTSET 59463 06/10/2024/09/2022, 06/23/2022, 07/21/2021, Additional history exists GFR 07/08/2024 01/07/2024, 05/22, 10/16/2022, Additional history exists CKD HGB USE SMARTSET 14206 01/06/202501/06, 06/10/2023, 06/10/2023, Additional history exists Albumin/Creatinine [...] Comments INR FINGERSTICK, POINT OF CARE STAT 04/03/2024 11:48 AM EDT History of pulmonary embolism Factor V Leiden (HCC) Anticoagulation management encounter documented in this encounter Results * INR FINGERSTICK, POINT OF CARE (04/03/2024 11:48 AM EDT) Fingerstick INR 2.5 INR 12:12 PM EDT [facility] Blood 04/03/2024 11:4 8 AM EDT 04/03/2024 12:12 PM EDT Narrative [facility] [place] 55-00 - 04/03/2024 12:12 PM EDT Therapeutic ranges for non-operative patients: Prophylaxsis/treatment of DVT: (Range:2.0-3.0) Treatment of pulmonary embolism:(Range:2.0-3.0) Prevention of systemic embolism from: -tissue heart valves -acute myocardial infarction -valvular heart disease -atrial fibrillation (Range: 2.0-3.0) Mechanical prosthetic valves: (Range: 2.5-3.5) Kamala Tijerina [facility] POINT OF CARE TEST DOCKED DEVICE UNSOLICITED RESULTS [facility] [place] 55-[address] [place] [address] [place] [address] documented in this encounter Visit Diagnoses Diagnosis Anticoagulation management encounter- Primary Encounter for therapeutic drug monitoring History of pulmonary embolism Personal history of pulmonary embolism Factor V Leiden (HCC) Primary hypercoagulable state documented in this encounter Advance Directives Documents on File Type Date Recorded Patient Drafter Electrical Expl anation Advance Directives and Livin g Will 05/20/2016 ADVANCE DIRECTIVE Power of Parer 05/20/2016 POWER OF A TTORNEY * Full Code (Latest Code Status on File) Date Activated Date Inactivated Comments 08/14/2008 10:37 AM 08/14/2008 10:38 AM Care Teams Cane Flume Watchman Relationship Specialty Start Date End Date Yoav Kong MD [address] [place] [address] [place] [address] PCP - General Family Medicine 04/09/14 documented as of this encounter
--- OUTSIDE RECORDS SUMMARY | 2024-06-16 04:08 | External Medical Summary | Summary of Care ---
Author Name Unknown Organization [facility] Address [address] [place] [address] Phone [phone] Care Team Providers Care Dry Sand Molder Name Role Phone Yoav Kong MD Primary Care Provide r Reason for Visit * Reason Onset Date Comments Test Results 03/21/2024 Encounter Details Date Type Department Care Team (Late st Contact Info) Description 03/21/2024 Telephone Cardiology, [facility] [address] [place] [address] Mary Verde CRNP [address] [place] [phone] Test Results Allergies Active Allergy Reactions Criticality [...] by mouth 5,000 mcg daily . 06/10/20 Active Folic Acid 800 MCG Oral Tablet Take 1 Tablet by mouth in the morning. 06/10/20 22 Active high fiber LIQD Take by mouth. 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 Can repeat 15 minutes prior if additional anxiety relief is required. 2 Tablet 01/20/20 24 Active Metoprolol Succinate ER 25 MG Oral Tablet Extended Release 24 Hour (Toprol XL)Indications:Palp itations Take 1 Tablet by mouth in the morning. 90 Tablet 3 02/08/20 24 Active Naltrexone HCl 50 MG Oral Tablet (Revia) Take 1/2 tab by mouth once a day for 1 week then take 1/2 tab twice a day (morning & late afternoon) 30 Tablet 3 02/23/20 24 Active buPROPion HCl ER (SR) 150 MG Oral Tablet Extended Release 12 Hour (Wellbutrin SR) Take 1 tab by mouth once a day for 1 week then take 1 tab twice a day (morning & late afternoon) 60 Tablet 3 02/23/20 24 Active Repatha SureClick 140 MG/ML Subcutaneous Solution Auto-injector (evolocumab) Inject 140 mg (1 pen) under the skin every 14 days. Remove from refrigerator 30 minutes prior to injection. 6 mL 3 03/02/20 24 Active Gemtesa 75 MG Oral Tablet (Vibegron) Take 1 Tablet by mouth in the morning. Active Metamucil Fiber Oral Tablet Chewable Take by mouth. Active Pantoprazole Sodium 40 MG Oral Tablet Delayed Release (Protonix)Indicatio ns:Gastroesophageal reflux disease without esophagitis TAKE 1 TAB BY MOUTH DAILY 30 MINUTES BEFORE THE FIRST MEAL OF THE DAY 90 Tablet 3 05/31/20 23 024 Discontinued Hospital, Clinic, or Other Facility Administered [...] kidney disease 07/29/2020 Overview: Per CKD protocol Nondenominational or spiritual beliefs affecting medical care 05/25/2019 [...] encounter Miscellaneous Notes * Telephone Encounter - Jami Claire LPN - 03/24/2024 10:06 AM EDT Sent provider message in response to IPG message in another encounter. * Telephone Encounter - Mary Verde CRNP - 03/22/2024 3:55 PM EDT Stress test shows a normal functioning heart and no evidence of blockages. This means that this is not the cause of your shortness of breath. Your Echocardiogram shows very small evidence of MVP as described before. Valve disease is very slowly progressing and it is not appropriate to even consider valve surgery at this degree as it would do great damage to a valve that is still functioning well. We watch this with a repeat echo once a year to look for any changes. The degree of this is also not the cause of your shortness of breath. The extra heart beats or fluttering you are feeling, may contribute to your shortness of breath. Ifyou are not feeling any improvement with your palpitations, we can increase the dose of your metoprolol. I always tell patient's medication dosages are not "one size fits all", we start on a low dose and go from there. If you would like to have your dose increased to assess response, please let us know. Thank you, Mary * Telephone Encounter - Margaux Nunez CMA - 03/21/2024 12:43 PM EDT My g sent. * Telephone Encounter - Margaux Nunez CMA - 03/21/2024 12:42 PM EDT ----- Message from Mary Verde sent at 03/19/2024 4:14 PM EDT ----- Please notify patient that her Stress test is normal. Continue current medications and keep next routine cardiology follow up. Interpretation Summary Normal Lexiscan myocardial perfusion imaging study without evidence of inducible ischemia, or myocardial scar. Gated SPECT images reveals normal myocardial thickening and wall motion. The LV ejection fraction is calculated at >70%. documented in this encounter Plan of Treatment Upcoming Encounters Date Type Department Care Team (Late st Contact Info) Description 04/03/2024 11:40 AM EDT Anticoagulation Pharmacy, [address] [place] [address] [place] [address] 04/17/2024 11:00 AM EDT Office Visit Cardiology, [facility] [address] [place] [address] Daylin Diaz PA-C 132 [place] [address] 06/05/2024 2:45 PM EDT Imaging Radiology [address] [place] [address] 06/14/2024 1:40 PM EDT Office Visit Family Medicine [address] [place] [phone] Danika Chairez PA-C [address] [place] [address] [place] [address] 06/19/2024 12:50 PM EDT Laboratory Laboratory [address] [place] [phone] [place], Lab [address] [place] [address] 06/26/2024 1:00 PM EDT Office Visit Cardiology, [facility] [address] [place] [address] [facility] Cardiology [facility] [address] [place] [address] 07/03/2024 11:40 AM EDT Office Visit Nutrition & Weight Management, [facility] [address] [place] [address] Tami Garrett PA-C 132 [place] [address] 08/03/2024 1:00 PM EST Office Visit Orthopaedics [facility] [address] [place] [address] Herve Valera PA-C [address] [place] [address] 08/07/2024 1:00 PM EST Laboratory Laboratory [address] [place] [phone] [place] [address] 08/10/2024 1:00 PM EST Office Visit Orthopaedics [facility] [address] [place] [address] Herve Valera PA-C [address] [place] [phone] 08/14/2024 2:00 PM EST Office Visit Hematology/Oncology [facility] [address] [place] [phone] Jeanette Arellano MD [address] [place] [address] 08/23/2024 2:55 PM EST Office Visit Urogynecology [facility] [address] [place] [address] Bay Ferreira MD [address] [place] [address] Nurse Zach Hernandez [facility] [address] [place] [address] 08/24/2024 1:00 PM EST Office Visit Orthopaedics [facility] [address] [place] [address] Herve Valera PA-C [address] [place] [address] 12/19/2024 1:40 PM EDT Office Visit Family Medicine [address] [place] [phone] Yoav Kong MD [address] [place] [address] [place] [address] 01/09/2025 10:30 AM EDT Office Visit Sleep Disorders Ctr [facility] [address] [place] [phone] Yara Beck CRNP [address] [place] [address] Scheduled Procedures Name Priority Associated Diagnoses Date/Ti [...] Additional history exists CKD PHOS USE SMARTSET 56512 06/10/202405/22, 06/23/2022, 07/21/2021, Additional history exists GFR 07/08/2024 01/07/2024, 05/22, 10/16/2022, Additional history exists CKD HGB USE SMARTSET 53424 01/06/202501/06, 06/10/2023, 06/10/2023, Additional history exists Albumin/Creatinine [...] Documents on File Type Date Recorded Patient Hospitality Job Titles Expl anation Advance Directives and Livin g Will 05/20/2016 ADVANCE DIRECTIVE Power of Mattress Weaver 05/20/2016 POWER OF A TTORNEY * Full Code (Latest Code Status on File) Date Activated Date Inactivated Comments 08/14/2008 10:37 AM 08/14/2008 10:38 AM Care Teams Dry Sand Molder Relationship Specialty Start Date End Date Yoav Kong MD [address] [place] [address] [place] [address] PCP - General Family Medicine 04/09/14 documented as of this encounter
--- OUTSIDE RECORDS SUMMARY | 2024-06-16 04:08 | External Medical Summary | Summary of Care ---
Author Name Unknown Organization [facility] Address [address] [place] [address] Phone [phone] Care Team Providers Care Protection Manager Name Role Phone Yoav Kong MD Primary Care Provide r Reason for Visit * Reason Onset Date Comments Test Results 03/21/2024 Encounter Details Date Type Department Care Team (Late st Contact Info) Description 03/21/2024 Telephone Cardiology, [facility] [address] [place] [address] Mary Verde CRNP [address] [place] [phone] Test Results Allergies Active Allergy Reactions Criticality [...] as of this encounter (statuses as of 03/22/2024) Medications Medication Sig Dispensed Refills Start Date [...] of pulmonary embolism,Factor V Leiden (HCC),Anticoagulation management encounter,shelter current use of anticoagulant therapy,Venous thrombosis TAKE 4 MG (2 TABLETS) ON WEDNESDAYS TAKE 3 MG (1.5 TABLETS) ALL OTHER DAYS OR DIRECTED BY ANTICOAGULATION CLINIC 140 Tablet 3 3 Active Fluticasone Propionate 50 MCG/ACT Nasal Suspension (Flonase)Indications: Protracted URI SPRAY 2 SPRAYS INTO EACH NOSTRIL EVERY DAY 48 mL 2 3 Active Pantoprazole Sodium 40 MG Oral Tablet Delayed Release (Protonix)Indications :Gastroesophageal reflux disease without esophagitis TAKE 1 TAB BY MOUTH DAILY 30 MINUTES BEFORE THE FIRST MEAL OF THE DAY 90 Tablet 3 3 Active Levothyroxine Sodium 50 MCG Oral [...] Tablet Chewable Take by mouth. 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 COMMON MIGRAINE WITHOUT MENTION OF INTRACTABLE M IGRAINE 01/01/2003 GENERALIZED ANXIETY DIS 12/19/2001 TEMPOROMANDIBULAR JOINT DISORDERS, UNSPECIFIED Mitral valve disorder Gastroesophageal reflux disease without esophagi tis Other allergic rhinitis Overview: ICD-10 update of inactive term Mitral valve prolapse documented as of this encounter (statuses as of 03/22/2024) Resolved Problems Problem Noted Date Diagnosed Date [...] as of this encounter (statuses as of 03/22/2024) Immunizations Name Administration Dates Next Due COVID-19 [...] encounter Miscellaneous Notes * Telephone Encounter - Margaux Nunez CMA [...] Description 04/03/2024 11:40 AM EDT Anticoagulation Pharmacy, [address] [place] [address] [place] [address] 04/17/2024 11:00 AM EDT Office Visit Cardiology, [facility] [address] [place] [address] Daylin Diaz PAEmily [address] [place] [address] 06/05/2024 2:45 PM EDT [facility] [address] [place] [address] 06/14/2024 1:40 PM EDT Office Visit Family Medicine [address] [place] [phone] Danika Chairez PA-C [address] [place] [address] [place] [address] 06/19/2024 12:50 PM EDT Laboratory Laboratory [address] [place] [phone] [place], Lab [address] [place] [address] 06/26/2024 1:00 PM EDT Office Visit Cardiology, [facility] [address] [place] [address] [facility] Cardiology [facility] [address] [address] 07/03/2024 11:40 AM EDT Office Visit Nutrition & Weight Management, [facility] [address] [place] [address] Tami Garrett PA-C [address] [place] [address] 08/03/2024 1:00 PM EST Office Visit Orthopaedics [facility] [address] [place] [address] Herve Valera PA-C [address] [place] [address] 08/07/2024 1:00 PM EST Laboratory Laboratory [address] [place] [phone] [place], [address] [place] [address] 08/10/2024 1:00 PM EST Office Visit [facility] [address] [place] [address] Herve Valera PA-C [address] [place] [address] 08/14/2024 2:00 PM EST Office Visit Hematology/Oncology [facility] [address] [place], [place] [phone] Jeanette Arellano MD [address] [place] [address] 08/23/2024 2:55 PM EST Office [facility] [address] [place] [address] Bay Ferreira MD [address] [place] [address] Nurse Zach Hernandez [address] [place] [address] 08/24/2024 1:00 PM EST Office Visit Orthopaedics [facility] [address] [place] [address] Herve Valera PA-C [address] [place] [address] 12/19/2024 1:40 PM EDT Office Visit Family [address] [place] [phone] Yoav Kong MD [address] [place] [address] [place] [address] 01/09/2025 10:30 AM EDT Office Visit Sleep Disorders Ctr [facility] [address] [place] [phone] Yara Beck CRNP [address] [place] [address] Scheduled Procedures Name Priority Associated Diagnoses Date/Ti [...] Additional history exists CKD PHOS USE SMARTSET 15314 06/10/202405/22, 06/23/2022, 07/21/2021, Additional history exists GFR 07/08/2024 01/07/2024, 05/22, 10/16/2022, Additional history exists CKD HGB USE SMARTSET 21742 01/06/202501/06, 06/10/2023, 06/10/2023, Additional history exists Albumin/Creatinine [...] Documents on File Type Date Recorded Patient Spd Tech Expl anation Advance Directives and Livin g Will 05/20/2016 ADVANCE DIRECTIVE Power of Dye Weigher Helper 05/20/2016 POWER OF A TTORNEY * Full Code (Latest Code Status on File) Date Activated Date Inactivated Comments 08/14/2008 10:37 AM 08/14/2008 10:38 AM Care Teams Protection Manager Relationship Specialty Start Date End Date Yoav Kong MD [address] [place] [address] [place] [address] PCP - General Family Medicine 04/09/14 documented as of this encounter
--- OUTSIDE RECORDS SUMMARY | 2024-06-16 04:08 | External Medical Summary | Summary of Care ---
Author Name Unknown Organization [facility] Address [address] [place] [address] Phone [phone] Care Team Providers Care Teaching Music Lessons Name Role Phone Yoav Kong MD Primary Care Provide r Reason for Visit * Reason Onset Date Comments Test Results 03/21/2024 Encounter Details Date Type Department Care Team (Late st Contact Info) Description 03/21/2024 Telephone Cardiology, [facility] [address] [place] [address] Mary Verde CRNP [address] [place] [phone] Test Results Allergies Active Allergy Reactions Criticality [...] pulmonary embolism,Factor V Leiden (HCC),Anticoagulati on management encounter,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,Venous thrombosis TAKE [...] kidney disease 07/29/2020 Overview: Per CKD protocol Latter Day or spiritual beliefs affecting medical care 05/25/2019 [...] pulmonary embolism 12/20/2011 Anticoagulation management encounter 12/14/2011 half-way current use of anticoagulant therapy 0 12/14/2011 [...] encounter Miscellaneous Notes * Telephone Encounter - Mary Verde CRNP [...] Thank you, Mary * Telephone Encounter - Margaxu Nunez CMA - 03/21/2024 12:43 PM EDT [...] Description 04/03/2024 11:40 AM EDT Anticoagulation Pharmacy, [address] [place] [address] [place] [address] 04/17/2024 11:00 AM EDT Office Visit Cardiology, [facility] [address] [place] [address] Daylin Diaz PA-C [address] [place] [address] 06/05/2024 2:45 PM EDT Imaging Radiology [address] [place] [address] 06/14/2024 1:40 PM EDT Office Visit Family Medicine [address] [place] [phone] Danika Chairez PA-C [address] [place] [address] [place] [address] 06/19/2024 12:50 PM EDT Laboratory Laboratory [address] [place] [phone] [place] [address] 06/26/2024 1:00 PM EDT Office Visit Cardiology, [facility] 132 [facility] [place] [address] [facility] Cardiology [facility] 132 [facility] [place] [address] 07/03/2024 11:40 AM EDT Office Visit Nutrition & Weight Management, [facility] 132 [facility] [place] [address] Tami Garrett PA-C 132 [facility] [place] [address] 08/03/2024 1:00 PM EST Office Visit Orthopaedics [facility] 132 [facility] [place] [address] Herve Valera PA-C [address] [place], [place] [address] [place] [address] 08/07/2024 1:00 PM EST Laboratory Laboratory [address] [place] [phone] [address] [place] [address] 08/10/2024 1:00 PM EST Office Visit Orthopaedics [facility] 132 [facility] [place] [address] Herve Valera PA-C [address] [place] [address] 08/14/2024 2:00 PM EST Office Visit Hematology/Oncology [facility] 200 [facility] [place] [phone] Jeanette Arellano MD [address] [place] [address] 08/23/2024 2:55 PM EST Office Visit Urogynecology [facility] 132 [facility] [place] [address] Bay Ferreira MD 132 [facility] [place] [address] Nurse Zach Hernandez [facility] 132 [facility] [address] 08/24/2024 1:00 PM EST Office Visit Orthopaedics [facility] 132 [facility] [place] [address] Herve Valera PA-C [address] [place] [address] 12/19/2024 1:40 PM EDT Office Visit Family Medicine [address] [place] [phone] Yoav Kong MD [address] [place] [address] [place] [address] 01/09/2025 10:30 AM EDT Office Visit Sleep Disorders Ctr 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
--- OUTSIDE RECORDS SUMMARY | 2024-06-16 04:08 | External Medical Summary | Summary of Care ---
Author Name Unknown Organization [facility] Address [address] [place] [address] Phone [phone] Care Team Providers Care Rotor Pilot Name Role Phone Yoav Kong MD Primary Care Provide r Reason for Visit * Reason Comments eRx-Medication Refill Encounter Details Date Type Department Care Team (Late st Contact Info) Description 03/21/2024 Refill Pharmacy, [address] [place] [address] Yoav Kong MD [address] [place] [address] [place] [address] Encounter for long-term (current) use of other medications*; Gastroesophageal reflux disease without esophagitis Allergies Active Allergy Reactions Criticality Noted Date [...] 1 Tablet by mouth in the morning. 09/21/20 22 Active Biotin 1000 MCG Oral Tablet Chewable Take by mouth 5,000 mcg daily . 06/10/20 Active Folic Acid 800 MCG Oral Tablet Take 1 Tablet by mouth in the morning. 06/10/20 Active high fiber LIQD Take by mouth. 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,Venous thrombosis TAKE [...] DAY 90 Tablet 2 03/22/20 24 Active Pantoprazole Sodium 40 MG Oral Tablet [...] kidney disease 07/29/2020 Overview: Per CKD protocol Congregational or spiritual beliefs affecting medical care 05/25/2019 [...] pulmonary embolism 12/20/2011 Anticoagulation management encounter 12/14/2011 [facility] current use of anticoagulant therapy 0 12/14/2011 [...] encounter Miscellaneous Notes * Telephone Encounter - Cici Dillard RPh - 03/22/2024 10:37 AM EDTSigned Prescriptions: Disp Refills Pantoprazole Sodium 40 MG Oral Tablet Lucia*90 Tab*2 Sig: TAKE 1 TABLET BY MOUTH ONCE DAILY 30 MINUTES BEFORE THE FIRST MEAL OF THE DAYAuthorizing Provider: YOAV KONG User: CICI DILLARD * Telephone Encounter - Cici Dillard RPh - 03/22/2024 10:36 AM EDT Per refill protocol patient needs vitamin B-12 lab on file within the past 2 years while using PPIs. Lab work ordered. Patient may obtain with next routine labs. Thank you, Cici Dillard, PharmD Clinical Pharmacist [facility] 03/22/24 10:36 AM [phone] * Telephone Encounter - Kamala Tijerina [facility] - 03/21/2024 9:41 AM EDT Pending Prescriptions: Disp Refills Pantoprazole Sodium 40 MG Oral Tablet Lucia*90 Tab*3 Sig: TAKE 1TABLET BY MOUTH ONCE DAILY 30 MINUTES BEFORE THE FIRST MEAL OF THE DAY documented in this encounter Plan of Treatment Upcoming Encounters Date Type Department Care Team (Late st Contact Info) Description 04/03/2024 11:40 AM EDT Anticoagulation Pharmacy, [address] [place] [address] [place] [address] 04/17/2024 11:00 AM EDT Office Visit Cardiology, [facility] [address] [place] [address] Daylin Diaz PA-C 132 [place] [address] 06/05/2024 2:45 PM EDT Imaging Radiology [address] [place] [address] 06/14/2024 1:40 PM EDT Office Visit Family Medicine [address] [place] [phone] Danika Chairez PA-C [address] [place] [address] [place] [address] 06/19/2024 12:50 PM EDT Laboratory Laboratory [address] [place] [phone] [place] [address] 06/26/2024 1:00 PM EDT Office Visit Cardiology, [facility] 132 [facility] [place] [address] [facility] [place] [facility] Cardiology [facility] 132 [facility] [place] [address] 07/03/2024 11:40 AM EDT Office Visit Nutrition & Weight Management, [facility] 132 [facility] [place] [address] Tami Garrett PA-C [facility] [place] [address] 08/03/2024 1:00 PM EST Office Visit Orthopaedics [facility] 132 [facility] [place] [address] Herve Valera PA-C [facility] [address] [place] [address] 08/07/2024 1:00 PM EST Laboratory Laboratory [address] [place] [phone] [place] [address] 08/10/2024 1:00 PM EST Office Visit Orthopaedics [facility] 132 [facility] [place] [address] Herve Valera PA-C [address] [place] [address] 08/14/2024 2:00 PM EST Office Visit Hematology/Oncology [facility] [address] [place] [phone] Jeanette Arellano MD [address] [place] [address] 08/23/2024 2:55 PM EST Office Visit Urogynecology [facility] 132 [facility] [place] [address] Bay Ferreira MD 132 [facility] [place] [address] HernandezNurse Zach [facility] 132 [facility] [place] [address] 08/24/2024 1:00 PM EST Office Visit Orthopaedics [facility] 132 [facility] [place] [address] Herve Valera PA-C [address] [place] [address] 12/19/2024 1:40 PM EDT Office Visit Family Medicine [address] [place] [phone] Yoav Kong MD [address] [place] [address] [place] [address] 01/09/2025 10:30 AM EDT Office Visit Sleep Disorders Ctr [facility] 132 [facility] [place] [phone] Yara Beck CRNP [address] [place] [address] Scheduled Orders Name Type Priority Associated Diagnoses Orde r Schedule VITAMIN B12 Lab Routine Gastroesophageal reflux disease without esophagitis Encounter for long-term (current) use of other medications Expected: 03/29/2024 (Approximate), Expires: 03/22/2025 Scheduled Procedures Name Priority Associated Diagnoses Date/Ti [...] Additional history exists CKD PHOS USE SMARTSET 52302 06/10/202405/22, 06/23/2022, 07/21/2021, Additional history exists GFR 07/08/2024 01/07/2024, 05/22, 10/16/2022, Additional history exists CKD HGB USE SMARTSET 54360 01/06/202501/06, 06/10/2023, 06/10/2023, Additional history exists Albumin/Creatinine [...] as of this encounter Visit Diagnoses Diagnosis Encounter for long-term (current) use of other medications- Primary Gastroesophageal reflux disease without esophagitis Esophageal reflux documented in this encounter Advance Directives Documents on File Type Date Recorded Patient Interactive Digital Media Specialist Expl anation Advance Directives and Livin g Will 05/20/2016 ADVANCE DIRECTIVE Power of Commercial Stripper 05/20/2016 POWER OF A TTORNEY * Full Code (Latest Code Status on File) Date Activated Date Inactivated Comments 08/14/2008 10:37 AM 08/14/2008 10:38 AM Care Teams Rotor Pilot Relationship Specialty Start Date End Date Yoav Kong MD [address] [place] [address] [place] [address] PCP - General Family Medicine 04/09/14 documented as of this encounter
--- OUTSIDE RECORDS SUMMARY | 2024-06-16 04:08 | External Medical Summary | Summary of Care ---
Author Name Unknown Organization [facility] Address [address] [place] [address] Phone [phone] Care Team Providers Care Mental Health Orderly Name Role Phone Yoav Kong MD Primary Care Provide r Reason for Visit * Reason Onset Date Comments Test Results 03/21/2024 Encounter Details Date Type Department Care Team (Late st Contact Info) Description 03/21/2024 Telephone Cardiology, [facility] [place] [address] [place] [phone] Mary Verde CRNP [address] [place] [id number] Test Results Allergies Active Allergy Reactions Criticality [...] as of this encounter (statuses as of 03/21/2024) Medications Medication Sig Dispensed Refills Start Date [...] of pulmonary embolism,Factor V Leiden (HCC),Anticoagulation management encounter,halfway current use of anticoagulant therapy,Venous thrombosis TAKE [...] as of this encounter (statuses as of 03/21/2024) Active Problems Problem Noted Date Diagnosed Date [...] embolism 12/20/2011 Anticoagulation management encounter 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 COMMON MIGRAINE WITHOUT MENTION OF INTRACTABLE M IGRAINE 01/01/2003 GENERALIZED ANXIETY DIS 12/19/2001 TEMPOROMANDIBULAR JOINT DISORDERS, UNSPECIFIED Mitral valve disorder Gastroesophageal reflux disease without esophagi tis Other allergic rhinitis Overview: ICD-10 update of inactive term Mitral valve prolapse documented as of this encounter (statuses as of 03/21/2024) Resolved Problems Problem Noted Date Diagnosed Date [...] as of this encounter (statuses as of 03/21/2024) Immunizations Name Administration Dates Next Due COVID-19 [...] Description 04/03/2024 11:40 AM EDT Anticoagulation Pharmacy, [address] [place] [address] [place] [address] 04/17/2024 11:00 AM EDT Office Visit Cardiology, [facility] [place] [address] [place] [address] Daylin Diaz PAEmily [address] [place] [address] 06/05/2024 2:45 PM EDT Imaging [facility] [address] [place] [address] 06/14/2024 1:40 PM EDT Office Visit Family Medicine [address] [place] [phone] Danika Chairez PA-C [address] [place] [address] [place] [address] 06/19/2024 12:50 PM EDT Laboratory Laboratory [address] [place] [phone] [place], Lab [address] [place] [address] 06/26/2024 1:00 PM EDT Office Visit Cardiology, [facility] [place] [address] [place] [address] [facility] Cardiology [facility] [address] [address] 07/03/2024 11:40 AM EDT Office Visit Nutrition & Weight Management, [facility] [place] [address] [place] [address] Tami Garrett PA-C [address] [place] [address] 08/03/2024 1:00 PM EST Office Visit Orthopaedics [facility] [place] [address] [place] [address] Herve Valera PA-C [address] [place] [address] 08/07/2024 1:00 PM EST Laboratory Laboratory [address] [place] [phone] [place], [address] [place] [address] 08/10/2024 1:00 PM EST Office Visit [facility] [address] [place] [address] Herve Valera PA-C [address] [place] [address] 08/14/2024 2:00 PM EST Office Visit Hematology/Oncology [facility] [address] [place], [place] [phone] Jeanette Arellano MD [address] [place] [address] 08/23/2024 2:55 PM EST Office Visit Urogynecology [facility] [address] [place] [address] [place] Ferreira MD [address] [place] [address] Nurse Zach Hernandez [address] [place] [address] 08/24/2024 1:00 PM EST Office Visit Orthopaedics [facility] [place] [address] [place] [address] Herve Valera PA-C [address] [place] [address] 12/19/2024 1:40 PM EDT Office Visit Family [address] [place] [phone] Yoav Kong MD [address] [place] [address] [place] [address] 01/09/2025 10:30 AM EDT Office Visit Sleep Disorders Ctr [facility] [address] [place] [phone] Yara Beck CRNP [address] [place] [address] Scheduled Procedures Name Priority Associated Diagnoses Date/Ti [...] Additional history exists CKD PHOS USE SMARTSET 67819 06/10/202405/22, 06/23/2022, 07/21/2021, Additional history exists GFR 07/08/2024 01/07/2024, 05/22, 10/16/2022, Additional history exists CKD HGB USE SMARTSET 72577 01/06/202501/06, 06/10/2023, 06/10/2023, Additional history exists Albumin/Creatinine Ratio 01/18/2025 024, 12/11/2022, 12/16/2021, Additional history exists TSH 01/18/2025 01/19/2024, 12/19, 06/10/2023, Additional history exists DXA Scan 06/11/2027 06/11/2020, 10/22, 07/04/2009, Additional history exists Hepatitis C Screening Completed 01/05/2012 Pneumococcal Vaccine: 65+ Years Completed 10/15/2014, 04/24/2009, 06/11/1999 Zoster Vaccines Completed 04/07/2020, 08/20, 05/03/2009 GARDASIL-HPV IMMUNIZATION SERIES Aged Out No longer eligible based on patient's age to complete this topic Hepatitis B Aged Out No longer eligi ble based on patient's age to complete this topic MENINGOCOCCAL (MENACTRA/MENVEO) Aged Out No longer eligible based on patient's age to complete this topic documented as of this encounter Medical Devices Not on filedocumented as of this encounter Advance Directives Documents on File Type Date Recorded 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
--- OUTSIDE RECORDS SUMMARY | 2024-06-16 04:09 | External Medical Summary | Summary of Care ---
Author Name Unknown Organization [facility] Address [address] [place] [address] Phone [phone] Care Team Providers Care Hotel Staff Member Name Role Phone Yoav Kong MD Primary Care Provide r Reason for Visit * Reason Comments Follow Up Hx of breast cancer, invasive ductal, pt early thought she had a mammogram today, US done 08/17/2023, and mammo 06/03/2023 Encounter Details Date Type Department Care Team (Late st Contact Info) Description 03/15/2024 11:15 AM EDT Office Visit General Surgery, [facility] [address] [address] Roxi Platt MD [address] [facility] [place] [phone] Hx of breast cancer*; Encounter for screening mammogram for breast cancer Allergies Active Allergy Reactions Criticality Noted Date [...] as of this encounter (statuses as of 03/15/2024) Medications Medication Sig Dispensed Refills Start Date [...] of pulmonary embolism,Factor V Leiden (HCC),Anticoagulation management encounter,rn long term care current use of anticoagulant therapy,Venous thrombosis TAKE [...] as of this encounter (statuses as of 03/15/2024) Active Problems Problem Noted Date Diagnosed Date [...] pulmonary embolism 12/20/2011 Anticoagulation management encounter 12/14/2011 residential current use of anticoagulant therapy 0 12/14/2011 DYSLIPIDEMIA, GOAL LDL BELOW 100 08/29/2009 Overview: Per Lipid Taxonomy. COMMON MIGRAINE WITHOUT MENTION OF INTRACTABLE M IGRAINE 01/01/2003 GENERALIZED ANXIETY DIS 12/19/2001 TEMPOROMANDIBULAR JOINT DISORDERS, UNSPECIFIED Mitral valve disorder Gastroesophageal reflux disease without esophagi tis Other allergic rhinitis Overview: ICD-10 update of inactive term Mitral valve prolapse documented as of this encounter (statuses as of 03/15/2024) Resolved Problems Problem Noted Date Diagnosed Date [...] as of this encounter (statuses as of 03/15/2024) Immunizations Name Administration Dates Next Due COVID-19 [...] Sign Reading Time Taken Comments Blood Pressure 145/65 03/15/2024 10:57 AM EDT Pulse 82 03/15/2024 10:57 AM EDT Temperature 36.7 C (98.1 F) 03/15/2024 10:57 AM E DT Respiratory Rate - - Oxygen Saturation - - Inhaled Oxygen Concentration - - Weight 99.8 kg (220 lb 1.6 oz) 03/15/2024 10:57 AM EDT Height - - Body Mass Index 40.91 01/07/2024 11:52 AM EDT documented in this encounter Progress Notes * Roxi Platt MD - 03/15/2024 11:15 AM EDT [facility] GENERAL SURGERY BREAST CANCER CLINIC FOLLOW UP NOTE Chief Complaint Patient presents with Follow Up Hx of breast cancer, invasive ductal, pt early thought she had a mammogram today, US done 08/17/2023, and mammo 06/03/2023 REASON FOR VISIT: Follow up Left Breast Cancer Clinical Stage T1N0 - 2.5 yr f/u exam Last visit03/09/23 HPI: Linette Trujillo is a 78 year old female with a history of breast cancer, as per following: Date of treatment: 08/20/21 Breast cancer treated: a high grade invasive ductal Pathologic Stage 1 Carcinoma Marbury nodes were negative x1 Primary tumor: estrogen receptor and progesterone receptor positive. HER-2/mary receptors negative; Tumor size 14 mm; Margins were negative Surgical procedure performed: Left partial mastectomy and sentinel node biopsy Radiation history: Left breast radiation 5130 cGy, finished 11/11/21 Chemotherapy history: None currently, tried anti hormonal therapy but did not tolerate due to vaginal dryness/ bleeding and then due to multiple other side effects (took for about 4 months). OncotypeDX score 12 (3% risk). Genetic testing negative Pathology: 08/20/2021 A. Marbury lymph node, left axilla, #1, count 391, excision: One lymph node, negative for metastatic carcinoma (0/1). CKAE-1,3 and CK7 immunostains are negative. B. Breast, left, Saviscout-localized excision: Invasive ductal carcinoma, histologic grade 3. The invasive tumor involves the anterior margin over an area 5mm in greatest dimension (Note: The final anterior margin in Part F is negative) and focally (0.5mm) involves the medial margin (Note: The final medial margin in Part C is negative). Microcalcifications identified Focal changes consistent with previous biopsy site. (See Synoptic Data) C. Additional medial margins, left breast, margin re-excision: Benign mammary tissue with microcalcifications. D. Additional inferior margins, left breast, margin re-excision: Benign mammary tissue with fibrocystic changes with microcalcifications. E. Additional lateral margin, left breast, margin re-excision: Benign mammary tissue with fibrocystic changes. F. Additional anterior superior margin, left breast, margin re-excision: Benign fibrofatty tissue. BREAST ROS: No new breast lumps or masses, No severe breast pain, No nipple discharge and No recent change in shape/color Had started letrozole in September 2021. Stopped in December 2021 on recommendation of cardiology because of significant side effects including leg swelling. All the symptoms have resolved and now is backto normal. Has noticed a 40 lb weight gain since surgery. Working with cardiology now as she is noticing more swelling in arms, abdomen, legs. Recent echo shows preserved EF. Stress test is pending. Has tried ozempic but stopped when because her diabetic friends could not get the meds. Insurance will not cover wegovy. Underwent MRI surveillance under bill [phone] but is now doing mammography alone. GYNECOLOGIC HISTORY: LMP: No LMP recorded. Patient has had a hysterectomy and BSO age 31 done for endometriosis Menarche at age: 12 Menopause at age: 31 Number of children: 2 Patient's age at first live : 20 Did you breast feed any of your children: Yes Ever take oral contraceptives? Yes, history of use for four year(s) Ever take estrogen? Yes, history of use for 3 or 4 year(s). Placed on HRT age 31 - took it for about 20 yrs, stopped in her 50s. BREAST IMAGIN06/03/23: Result MAMMOGRAM SCREENING ELIZABETH BILATERAL History Encounter for screening mammogram for breast cancer Family medical history includes colon cancer in brother. Films Compared 03/13/2022 MAMMOGRAM DIAGNOSTIC ELIZABETH LEFT, 07/10/2021 MAMMOGRAM POST BIOPSY CLIP PLACEMENT, 06/26/2021 MAMMOGRAM DIAGNOSTIC ELIZABETH BILATERAL, 06/02/2021 MAMMOGRAM SCREENING BILATERAL, 05/28/2020 MAMMOGRAM SCREENING BILATERAL, 05/26/2018 MAMMOGRAM DIAGNOSTIC LEFT, and 05/16/2018 MAMMOGRAM SCREENING BILATERAL Findings The breasts are heterogeneously dense, which may obscure small masses. Postsurgical changes relatedto breast conserving surgery for carcinoma in the left breast and axilla are unchanged. No new dominant mass or clustered microcalcifications suspicious for malignancy are identified. Impression Bilateral No mammographic evidence of malignancy. BI-RADS Category: 2 - Benign. Recommendation Bilateral mammogram is advised in 1 year or sooner if warranted clinically. Digital breast tomosynthesis was performed. This digital mammogram has been analyzed with the computer aided detection system. 08/17/23: Result US BREAST AXILLA LEFT History Left axillary pain History of breast cancer Family medical history includes colon cancer in brother. Films Compared 06/03/2023 MAMMOGRAM SCREENING ELIZABETH BILATERAL and 07/10/2021 MAMMOGRAM POST BIOPSY CLIP PLACEMENT Findings The breast tissue has a heterogeneous background echotexture. Patient presents with a history of thickening or equivocal lump in the left axilla for targeted axillary ultrasound. On exam, there is a scar post sentinel lymph node sampling. I do not appreciate a lump. On focused ultrasound of the left axilla, no lymphadenopathy, mass, collection, or other abnormality is appreciated in the left axilla. Clinical follow up is recommended (FNA as clinically warranted). Impression No sonographic evidence of malignancy. BI-RADS Category: 1 - Negative. Recommendation Screening mammogram in 1 year is recommended for the left breast. FAMILY HISTORY: Family history of breast cancer: None Family history of ovarian cancer: None Family History Problem Relation Name Age of Onset Hypertension Mother VANESA-BSO Other (BIANCA) Brother Other (Mesothelioma) Brother Diabetes Brother Colon cancer Brother Pancreatic cancer Brother Diabetes Brother Multiple Sclerosis Daughter Other (endometriosis) Daughter VANESA-BSO Leukemia Nephew Breast Cancer No significant family history PAST MEDICAL HISTORY: Past Medical History: Diagnosis Date Allergic rhinitis due to other allergen Anticoagulation management encounter 12/14/2011 BRCA1 gene mutation negative BRCA2 gene mutation negative Breast cancer ([facility]) 07/10/2021 Left Breast Invasive ductal carcinoma, histologic grade 3 CATARACT NOS 01/25/2007 COMMON MIGRAINE WITHOUT MENTION OF INTRACTABLE MIGRAINE 01/01/2003 Current tear of medial cartilage or meniscus of knee Dyslipidemia, goal LDL below 100 08/29/2009 Embolism - blood clot Esophageal reflux Esophagitis, unspecified Factor V Leiden ([facility]) 12/28/2011 GENERALIZED ANXIETY DIS 12/19/2001 Headache(784.0) 06/26/2002 HTN, goal below 140/90 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 Kidney disease, chronic, stage III (GFR 30-59 ml/min) ([facility]) 05/07/09 23/1.0 GFR 59.1 LIPOMA SKIN NEC 01/02/2008 Mitral valve disorder prolapse, uses SBE prophylaxis Mitral valve prolapse Mixed dyslipidemia Oral aphthae BIANCA (obstructive sleep apnea) 03/24/2017 Pulmonary embolus ([facility]) 11/2011 SBE (subacute bacterial endocarditis) prophylaxis candidate Sleep apnea, obstructive Stomatitis and mucositis (ulcerative) recurrent apthous ulcers Tear of lateral cartilage or meniscus of knee, current Tear of tendon of right ankle 2014 Temporomandibular joint disorders, unspecified Vaginitis chronic Venous thrombosis 12/14/2011 PAST SURGICAL HISTORY: Past Surgical History: Procedure Laterality Date BX LYMPH NODE DEEP AXIL Left 08/20/2021 BIOPSY LYMPH NODE DEEP AXILLARY OPEN performed by Roxi Platt MD at OR [facility] CARPAL TUNNEL SURGERY 04/08/2009 right COLONOSCOPY, DIAGNOSTIC (RECTUM) 09/06/2017 normal, repeat 10 yrs/COLONOSCOPY FLEXIBLE PROXIMAL DIAGNOSTIC performed by Jake Espino MD at ENDOSCOPY [facility] CYSTOSCOPY 12/04/2013 CYSTOURETHROSCOPY W/BIOPSY 06/14/1992 microscopic hematuria ECHO EXAM OF HEART (2D ECHO) 2002 MVP and trace MR EGD, FLEXIBLE, DIAGNOSTIC 03/31/2018 normal/ESOPHAGOGASTRODUODENOSCOPY (EGD), FLEXIBLE, TRANSORAL, DIAGNOSTIC performed by Jake Espino MD at ENDOSCOPY [facility] IDENTIFY SENTINEL NODE, RADIOACTIVE TRACER Left 08/20/2021 INJECTION PROCEDURE FOR IDENTIFICATION SENTINEL NODE performed by Roxi Platt MD at OR [facility] KNEE ARTHROSCOPY/MENISCECTOMY 07/06/2005 right KNEE ARTHROSCOPY/SYNOVECTOMY, MAJOR 07/06/2005 right LOWER LEG TENDON TRANSFER, DEEP 08/14/2008 TRANSFER OR TRANSPLANT SINGLE TENDON LEG DEEP performed by LAVERNE LAU at OR [facility] MASTECTOMY, PARTIAL Left 08/20/2021 MASTECTOMY PARTIAL performed by Roxi Platt MD at OR [facility] MISCELLANEOUS ORDER ([facility] ONLY) Right 07/12/2015 Repair [...] performed by Bethel Bliss DO at OR [facility] SACROILIAC JOINT INJECT W/GUIDANCE Bilateral 12/10/2023 INJECTION SACROILIAC JOINT performed by Fabian Bhagat DO at OR [facility] TOTAL HYSTERECTOMY with BSO for fibroids and cysts on ovaries and e'osis US GUIDED BREAST BIOPSY LEFT Left 07/10/2021 Invasive ductal carcinoma, histologic grade 3 CURRENT OUTPATIENT PRESCRIPTIONS: Current Outpatient Medications Medication Sig Dispense Refill B-6 100 MG PO TABS 200mg daily WOMENS MULTIVITAMIN PLUS PO TABS one daily [...] as needed for Dry eyes. CPAP once. B-12 1000 MCG Oral Capsule Take 1 Capsule by mouth once a day on Wednesday, Wednesday, and Wednesday only. Vitamin D3 25 MCG (1000 UT) Oral [...] INTO EACH [place] EVERYDAY 48 mL 2 Pantoprazole Sodium 40 MG Oral Tablet Delayed Release (Protonix) TAKE 1 TAB BY MOUTH DAILY 30 MINUTES BEFORE THE FIRST MEAL OF THE DAY 90 Tablet 3 Levothyroxine Sodium 50 MCG Oral Tablet (Levoxyl) [...] DAY IN THE MORNING 90 Tablet 3 LORazepam 0.5 MG Oral Tablet (Ativan) Take 1 tablet by mouth 45 minutes prior to scheduled MRI. Canrepeat 15 minutes prior if additional anxiety relief is required. 2 Tablet 0 Metoprolol Succinate ER 25 MG Oral Tablet Extended Release 24 Hour (Toprol XL) Take 1 Tablet by mouth in the morning. 90 Tablet 3 Naltrexone HCl 50 MG Oral Tablet (Revia) Take 1/2 tab by mouth once a day for 1 week then take 1/2 tab twice a day (morning & late afternoon) 30 Tablet 3 buPROPion HCl ER (SR) 150 MG Oral Tablet Extended Release 12 Hour (Wellbutrin SR) Take 1 tab by mouth once a day for 1 week then take 1 tab twice a day (morning & late afternoon) 60 Tablet 3 Repatha SureClick 140 MG/ML Subcutaneous Solution Auto-injector (evolocumab) Inject 140 mg (1 pen) under the skin every 14 days. Remove from refrigerator 30 minutes prior to injection. 6 mL 3 Gemtesa 75 MG Oral Tablet (Vibegron) Take 1 Tablet by mouth in the morning. Metamucil Fiber Oral Tablet Chewable Take by mouth. Biotin 1000 MCG Oral Tablet Chewable Take by mouth 5,000 mcg daily . (Patient not taking: Reported on 03/15/2024) Current Facility-Administered Medications Medication Dose Route Frequency Provider Last Rate Last Admin Hylan (Synvisc) inj 16 mg 16 mg Intra-Articular Q Week Herve Valera PA-C 16 mg at 01/20/24 1150 ALLERGIES: Allergies as of 03/15/2024 - Reviewed 03/15/2024 Allergen Reaction Noted Esomeprazole 06/26/2002 Gemtesa [vibegron] Anaphylaxis 01/05/2024 Hydrocodone Itching 05/28/2015 Exgest la [ppa-gg cr] Other (Please comment) 03/10/2010 Nitrofurantoin monohyd macro Hives 11/29/2013 Avelox [moxifloxacin hydrochloride] 11/05/2009 Ciprofloxacin Other (Please comment) 05/28/2015 Dilaudid [hydromorphone hcl] Nausea/vomiting 09/17/2015 Hydromorphone 11/12/2023 Metronidazole Hives and Unknown 08/15/2012 Moxifloxacin Unknown 05/28/2015 Nickel Rash 09/17/2015 Nitrofurantoin 05/28/2015 Ozempic (0.25 or 0.5 mg-dose) [semaglutide(0.25 or 0.5mg-dos)] 07/24/2022 Phenylpropanolamine hcl Scopolamine Other (Please comment) 06/06/2001 Sulfa antibiotics Hives and Nausea/vomiting 09/24/2000 Terazol [terconazole] 06/10/2010 Terconazole Unknown 05/28/2015 Fluconazole Hives 10/16/2010 SOCIAL HISTORY: Social History Tobacco Use Smoking status: Never Smokeless tobacco: Never Substance Use Topics Alcohol use: Yes Comment: Very rare- once a month if that Vaping/E-Cigarette Use Vaping/E-Cigarette Use Never User Vaping/E-Cigarette Substances Vaping/E-Cigarette Devices ROS: GEN: no weight loss, fever, fatigue HEENT: no changes in vision or hearing, no sinus problems, no sore throat, no hoarseness RESPIRATORY: no cough, wheezing, SOB or change in breathing CARDIOVASCULAR: no exertional chest pain, dyspnea, palpitations GI: no melena, hemetemesis, no vomiting or diarrhea : no dysuria, hematuria, frequency MUSCULOSKELETAL: no change in joint pains, no new arthritis PSYCHIATRIC: no significant anxiety or depression, unchanged sleep pattern HEME: no bleeding tendency, no clotting tendency NEURO: no significant headache, no seizures , no tremors SKIN: no new rashes, no itching PHYSICAL EXAMINATION: Blood pressure 145/65, pulse 82, temperature 36.7 C (98.1 F), weight 99.8 kg (220 lb 1.6 oz). Constitutional: alert, overweight Head: normocephalic, atraumatic Eyes: conjunctiva non-injected, sclera white Ears: pinna normal shape and color Neck: supple, no adenopathy Back: normal curvature Extremities: mild edema both ankles Neuro: alert, gait normal, motor normal BREAST EXAMINATION: Right Breast: Right Breast: Masses noted: No Post XRT edema: No Post XRT erythema: No Other palpable abnormality: No Skin: Skin retraction: No Peau d'orange: No Telangectasia: No Scar(s) present: No Other changes: No Right Nipple: Nipple inversion: No Pagets: No Nipple discharge: No Right Lymph Nodes: Arm edema: No Palpable axillary adenopathy: No Palpable supraclavicular adenopathy: No Previous axillary incision: No Left Breast: Left Breast: Masses noted: No Post XRT edema: No Post XRT erythema: No Other palpable abnormality: No Skin: Skin retraction: No Peau d'orange: No Telangectasia: No Scar(s) present: Yes, well healed periareolar Other changes: No Left Nipple: Nipple inversion: No Pagets: No Nipple discharge: No Left Lymph Nodes: Arm edema: No Palpable axillary adenopathy: No Palpable supraclavicular adenopathy: No Previous axillary incision: No IMPRESSION: Linette Trujillo is now 2.5 yrs following treatment for left breast cancer - stage 1 treated with lumpectomy, sln biopsy, radiation. Did not tolerate hormonal therapy after 4 month trial. No evidence of disease. She was wondering about lymphedema. Arm does not appear to be disproportionately swollen. Explainedthat only 1 lymph node was removed so lymphedema would be less likely. More likely it is related toher overall issues with edema (legs, abdomen, etc). Postop MRI was repeated due to her density and other scattered satellite tumors seen around primaryonly seen on MRI. This was clear and she is now undergoing mammography alone. Next mammogram due 06/04/24 - order placed. PLAN: Bilateral mammogram due 06/04/24 F/u 1 yr. Roxi Platt M.D. 03/15/2024 11:28 AM documented in this encounter Nursing Notes * Marly Hu LPN - 03/15/2024 10:58 AM EDT Patient identified by name and date of . Chief Complaint Patient presents with Follow Up Hx of breast cancer, invasive ductal, pt early thought she had a mammogram today, US done 08/17/2023, and mammo 06/03/2023 documented in this encounter Plan of Treatment Upcoming Encounters Date Type Department Care Team (Late st Contact Info) Description 03/16/2024 9:00 AM EDT Imaging [facility] 2nd Floor [address] [place] [address] 03/17/2024 10:00 AM EDT Imaging [facility] 2nd [facility] Cardiology[address] [place] [address] 03/20/2024 1:00 PM EDT Anticoagulation Pharmacy, [address] [place] [address] [place] [address] 04/17/2024 11:00 AM EDT Office Visit Cardiology, [address] [place] [address] Daylin Diaz PA-C [address] [place] [address] [place] [address] 06/05/2024 2:45 PM EDT Imaging Radiology [facility] [address] [place] [address] 06/14/2024 1:40 PM EDT Office Visit Family Medicine [address] [place] [phone] Danika Chairez PA-C [address] [place] [address] [place] [address] 06/19/2024 12:50 PM EDT Laboratory Laboratory [address] [place] [phone] [place], Lab [address] [place] [address] 06/26/2024 1:00 PM EDT Office Visit Cardiology, [address] [place] [address] [facility] [address] [place] [address] 07/03/2024 11:40 AM EDT Office Visit Nutrition & Weight Management, [facility] [address] [place] [address] Tami Garrett PA-C [address] [place] [address] 08/03/2024 1:00 PM EST Office Visit Orthopaedics [facility] [address] [place] [address] Herve Valera PA-C [address] [place] [address] 08/07/2024 1:00 PM EST Laboratory Laboratory [address] [place] [phone] [place], [address] [place] [address] 08/10/2024 1:00 PM EST Office Visit Orthopaedics [facility] [address] [place] [address] Herve Valera PA-C [address] [place] [address] 08/14/2024 2:00 PM EST Office Visit Hematology/Oncology [facility] [place] [address] [place] [address] [place] [phone] Jeanette Arellano MD [address] [place] [address] 08/23/2024 2:55 PM EST Office Visit Urogynecology [facility] 132 [facility] [place] [address] Bay Ferreira MD 132 [facility] [place] [address] HernandezNurse Zach williamson Shayna [address] [facility] [place] [address] 08/24/2024 1:00 PM EST Office Visit Orthopaedics [facility] 132 [facility] [place] [address] Herve Valera PA-C [address] [place] [address] 12/19/2024 1:40 PM EDT Office Visit Family Medicine [address] [place] [phone] Yoav Kong MD [address] [place] [address] [place] [address] 01/09/2025 10:30 AM EDT Office Visit Sleep Disorders [facility] 132 [facility] [place] [phone] Yara Beck CRNP 132 [place] [address] Scheduled Orders Name Type Priority Associated Diagnoses Orde r Schedule MAMMOGRAM SCREENING ELIZABETH BILATERAL Medical Imaging Routine Encounter for screening mammogram for breast cancer Expected: 06/04/2024 (Approximate), Expires: 2025 Scheduled Procedures Name Priority Associated Diagnoses Date/Ti me COLONOSCOPY FLEXIBLE PROXIMAL DIAGNOSTIC Recall Colon cancer screening Health Maintenance Due Date Last Done Comments Depression Screening 03/28/2022 03/28/2021 DTaP,Tdap,and Td Vaccines (2 - Td or Tdap) 06/14/2022 06/14/2012, 09/27/2005 COVID-19 Vaccine ( season) 2023 08/02/2023, 01/27/2022, 07/15/2021, Additional history exists CKD PHOS USE SMARTSET 72831 06/10/202405/22, 06/23/2022, 07/21/2021, Additional history exists GFR 07/08/2024 01/07/2024, 05/22, 10/16/2022, Additional history exists CKD HGB USE SMARTSET 74384 01/06/202501/06, 06/10/2023, 06/10/2023, Additional history exists Albumin/Creatinine Ratio 01/18/2025 024, 12/11/2022, 12/16/2021, Additional history exists TSH 01/18/2025 01/19/2024, 12/19, 06/10/2023, Additional history exists DXA Scan 06/11/2027 06/11/2020, 10/22, 07/04/2009, Additional history exists Hepatitis C Screening Completed 01/05/2012 Pneumococcal Vaccine: 65+ Years Completed 10/15/2014, 04/24/2009, 06/11/1999 Zoster Vaccines Completed 04/07/2020, 08/20, 05/03/2009 Influenza Vaccine (FLU shot) Completed , 06/06/2022, 06/10/2021, Additional history exists GARDASIL-HPV IMMUNIZATION SERIES Aged Out No longer [...] as of this encounter Visit Diagnoses Diagnosis Hx of breast cancer- Primary Personal history of malignant neoplasm of breast Encounter for screening mammogram for breast cancer documented in this encounter Advance Directives Documents on File Type Date Recorded Patient Pbx Inspector Expl anation Advance Directives and Karrie mata Will 05/20/2016 ADVANCE DIRECTIVE Power of Respiratory Therapy Technician 05/20/2016 POWER OF A TTORNEY * Full Code (Latest Code Status on File) Date Activated Date Inactivated Comments 08/14/2008 10:37 AM 08/14/2008 10:38 AM Care Teams Hotel Staff Member Relationship Specialty Start Date End Date Yoav Kong MD [address] [place] [address] [place] [phone] PCP - General Family Medicine 04/09/14 documented as of this encounter
--- OUTSIDE RECORDS SUMMARY | 2024-06-16 04:09 | External Medical Summary | Summary of Care ---
Author Name Unknown Organization [facility] Address [address] [place] [address] Phone [phone] Care Team Providers Care Store Grocery Merchandiser Name Role Phone Yoav Kong MD Primary Care Provide r Reason for Visit * Reason Comments Dosage Adjustment In Person (Anticoag Cl inic) Encounter Details Date Type Department Care Team (Latest Contact Info) Description 03/20/2024 1:00 PM EDT Anticoagulation Pharmacy, [address] [place] [phone] [place] [address] Anticoagulation management encounter*; History of pulmonary embolism; [...] as of this encounter (statuses as of 03/20/2024) Medications Medication Sig Dispensed Refills Start Date [...] of pulmonary embolism,Factor V Leiden (HCC),Anticoagulation management encounter,FDC current use of anticoagulant therapy,Venous thrombosis TAKE [...] as of this encounter (statuses as of 03/20/2024) Active Problems Problem Noted Date Diagnosed Date [...] kidney disease 07/29/2020 Overview: Per CKD protocol Amish or spiritual beliefs affecting medical care 05/25/2019 [...] pulmonary embolism 12/20/2011 Anticoagulation management encounter 12/14/2011 FDC current use of anticoagulant therapy 0 12/14/2011 DYSLIPIDEMIA, GOAL LDL BELOW 100 08/29/2009 Overview: Per Lipid Taxonomy. COMMON MIGRAINE WITHOUT MENTION OF INTRACTABLE M IGRAINE 01/01/2003 GENERALIZED ANXIETY DIS 12/19/2001 TEMPOROMANDIBULAR JOINT DISORDERS, UNSPECIFIED Mitral valve disorder Gastroesophageal reflux disease without esophagi tis Other allergic rhinitis Overview: ICD-10 update of inactive term Mitral valve prolapse documented as of this encounter (statuses as of 03/20/2024) Resolved Problems Problem Noted Date Diagnosed Date [...] as of this encounter (statuses as of 03/20/2024) Immunizations Name Administration Dates Next Due COVID-19 [...] Progress Notes * Kamala Tijerina RPh - 03/20/2024 1:00 PM EDT Images from the original note were not included. Medication Therapy Disease Management - Anticoagulation Patient: Linette Trujillo | : 1945 Subjective Patient-Reported Symptoms: Patient Findings Negatives: Signs/symptoms of thrombosis, Signs/symptoms of bleeding, Change in health, Change in alcohol use, Change in activity, Upcoming invasive procedure, Missed doses, Extra doses, Change in medications, Change in diet/appetite, Bruising Objective Current Warfarin Dose As of 03/20/2024 Warfarin maintenance plan: 3 mg (2 mg x 1.5) every Mon; 2 mg (2 mg x 1) all other days INR Result As of 03/20/2024 INR goal: 2.0-3.0 INR used for dosin.3 (03/20/2024) Assessment & Plan Warfarin Plan As of 03/20/2024 Full warfarin instructions: 03/20: Hold; Otherwise 2 mg every day Next INR check: 04/03/2024 Repeat PT/INR in 2 week(s) Weekly dose: decreased 6.7% Additional Dosing Information: Description Eats a green smoothie each day Kamala Tijerina RP Clinical Pharmacist 03/20/2024, 1:00 PM documented in this encounter Plan of Treatment Upcoming Encounters Date Type Department Care Team (Late st Contact Info) Description 04/03/2024 11:40 AM EDT Anticoagulation Pharmacy, [address] [place] [address] [place] [address] 04/17/2024 11:00 AM EDT Office Visit Cardiology, [facility] [address] [place] [address] Daylin Diaz PA-C [address] [place] [address] 06/05/2024 2:45 PM EDT Imaging Radiology [facility] 1st [facility] [address] [place] [address] 06/14/2024 1:40 PM EDT Office Visit Family Medicine [address] [place] [phone] Danika Chairez PA-C [address] [place] [address] [place] [address] 06/19/2024 12:50 PM EDT Laboratory Laboratory [address] [place] [phone] [facility] [address] [place] [address] 06/26/2024 1:00 PM EDT Office Visit Cardiology, [facility] [address] [place] [address] [facility] Cardiology [facility] [place] [address] 07/03/2024 11:40 AM EDT Office Visit Nutrition & Weight Management, [facility] [place] [address] Tami Garrett PA-C [address] [place] [address] 08/03/2024 1:00 PM EST Office Visit Orthopaedics [facility] 132 [facility] [place] [address] Herve Valera PA-C [address] [place] [phone] 08/07/2024 1:00 PM EST Laboratory Laboratory [address] [place] [phone] [place], [address] [place] [address] 08/10/2024 1:00 PM EST Office Visit Orthopaedics [facility] [place] [address] Herve Valera PA-C [address] [place] [address] 08/14/2024 2:00 PM EST Office Visit Hematology/Oncology Maria Fernanda Heidy [place] [address] [place] [phone] Jeanette Arellano MD [address] [place] [address] 08/23/2024 2:55 PM EST Office Visit Urogynecology [facility] [place] [address] Bay Ferreira MD 132 [facility] [place] [address] Nurse Zach Hernandez [address] [place] [address] 08/24/2024 1:00 PM EST Office Visit Orthopaedics [facility] 132 [facility] [place] [address] Herve Valera PA-C [address] [place] [address] 12/19/2024 1:40 PM EDT Office Visit Family [address] [place] [phone] Yoav Kong MD [address] [place] [address] [place] [address] 01/09/2025 10:30 AM EDT Office Visit Sleep Disorders Ctr [facility] [address] [place] [phone] Yara Beck CRNP 132 [facility] [place] [phone] Scheduled Procedures Name Priority Associated Diagnoses Date/Ti [...] Additional history exists CKD PHOS USE SMARTSET 17822 06/10/2024 09/09/2022, 06/23/2022, 07/21/2021, Additional history exists GFR 07/08/2024 01/07/2024, 05/22, 10/16/2022, Additional history exists CKD HGB USE SMARTSET 73869 01/06/202501/06, 06/10/2023, 06/10/2023, Additional history exists Albumin/Creatinine [...] Comments INR FINGERSTICK, POINT OF CARE STAT 03/20/2024 1:04 PM EDT History of pulmonary embolism Factor V Leiden (HCC) Anticoagulation management encounter documented in this encounter Results * INR FINGERSTICK, POINT OF CARE (03/20/2024 1:04 PM EDT) Fingerstick INR 3.3 INR 1:06 PM EDT [facility] 55-00 Blood 03/20/2024 1:04 PM EDT 03/20/2024 1:06 PM EDT Narrative [facility]ORY [facility] 55-00 - 03/20/2024 1:06 PM EDT Therapeutic ranges for non-operative patients: Prophylaxsis/treatment of DVT: (Range:2.0-3.0) Treatment of pulmonary embolism:(Range:2.0-3.0) Prevention of systemic embolism from: -tissue heart valves -acute myocardial infarction -valvular heart disease -atrial fibrillation (Range: 2.0-3.0) Mechanical prosthetic valves: (Range: 2.5-3.5) Kamala Tijerina [facility] POINT OF CARE TEST DOCKED DEVICE UNSOLICITED RESULTS LAB[facility]AT[facility] [address] [place] [address] [place] [address] documented in this encounter Visit Diagnoses Diagnosis Anticoagulation management encounter- Primary Encounter for therapeutic drug monitoring History of pulmonary embolism Personal history of pulmonary embolism Factor V Leiden (HCC) Primary hypercoagulable state documented in this encounter Advance Directives Documents on File Type Date Recorded Patient Budget Engineer Expl anation Advance Directives and Livin g Will 05/20/2016 ADVANCE DIRECTIVE Power of Oracle Endeca Consultant 05/20/2016 POWER OF A TTORNEY * Full Code (Latest Code Status on File) Date Activated Date Inactivated Comments 08/14/2008 10:37 AM 08/14/2008 10:38 AM Care Teams Store Grocery Merchandiser Relationship Specialty Start Date End Date Yoav Kong MD [address] [place] [address] [place] [address] PCP - General Family Medicine 04/09/14 documented as of this encounter
--- OUTSIDE RECORDS SUMMARY | 2024-06-16 04:09 | External Medical Summary | Summary of Care ---
Author Name Unknown Organization [facility] [address] [facility] [address] Phone [phone] Care Team Providers Care Manager Strategy Name Role Phone Yoav Kong MD Primary Care Provide r Reason for Visit * Reason Onset Date Comments Precert Approved 02/25/2024 Repatha 140mg/m L sureclick pen (new) Encounter Details Date Type Department Care Team (Late st Contact Info) Description 02/25/2024 Telephone Cardiology, [facility] 132 [facility] [place] [phone] [facility] [place] [address] Precert Approved (Repatha 140mg/mL surecli... Allergies Active Allergy Reactions Criticality Noted Date Comments Moxifloxacin Hydrochloride 0 "patient states her pharmacist told her not to take this med" Ciprofloxacin Other (Please comment) 05/28/2015 Caused tendon tears Hydromorphone Hcl Nausea/vomiting 09/17/2015 Esomeprazole 06/26/2002 migraine headache nexium Ppa-Gg Cr Other (Please comment) Medium 03/10/2010 Raises blood pressure and experiences heart palpatations. Metronidazole Hives 08/15/2012 Fluconazole Hives Low 10/16/2010 Vibegron Anaphylaxis High 01/05/2024 Hydrocodone Itching 05/28/2015 Moxifloxacin Unknown 05/28/2015 Nickel Rash 09/17/2015 Nitrofurantoin Monohyd Macro Hives Medium 11/29/2013 Semaglutide(0.25 Or 0.5mg-Dos) 07/24/2022 Nausea, diarrhea, rash Phenylpropanolamine Hcl Exgest LA--heart palpitations/side effect Scopolamine Other (Please comment) 06/06/2001 "it dehydrates me" Sulfa Antibiotics Hives,Nausea/vomit ing 09/24/2000 Other reaction(s): sick to stomach Terconazole 06/10/2010 hives Terconazole Unknown 05/28/2015 documented as of this encounter (statuses as of 02/29/2024) Medications Medication Sig Dispensed Refills Start Date [...] of pulmonary embolism,Factor V Leiden (HCC),Anticoagulation management encounter,detention current use of anticoagulant therapy,Venous thrombosis TAKE [...] late afternoon) 60 Tablet 3 4 Active Hospital, Clinic, or Other Facility Administered Medication Ordered Dose Route Frequency Start Date End Date Status Hylan (Synvisc) inj 16 mgIndications:Primary osteoarthritis of right knee 16 mg IX QWEEK 07/08/2023 Active documented as of this encounter (statuses as of 02/29/2024) Active Problems Problem Noted Date Diagnosed Date [...] kidney disease 07/29/2020 Overview: Per CKD protocol Hoahaoism or spiritual beliefs affecting medical care 05/25/2019 [...] pulmonary embolism 12/20/2011 Anticoagulation management encounter 12/14/2011 manager intermediate current use of anticoagulant therapy 0 [...] as of this encounter (statuses as of 02/29/2024) Resolved Problems Problem Noted Date Diagnosed Date [...] as of this encounter (statuses as of 02/29/2024) Immunizations Name Administration Dates Next Due COVID-19 [...] encounter Miscellaneous Notes * Telephone Encounter - Zhanna Molina RPh - 02/25/2024 10:09 AM EDT PCSK-9 Inhibitor Prior-Authorization Request Medication/Disease State Information: PCSK9 inhibitor needing prior auth: Repatha 140 mg every 2 weeks Diagnosis: primary HLD Quantity (30 or 90 day): 84 day supply/6 mL Failed or Intolerant to or Contraindicated: Atorvastatin (tendon tear) LDL Goal: < 100 mg/dL Pre-Treatment LDL: 150 mg/dL Date: 01/19/24 Current therapy: Zetia 10 mg daily Trial of max tolerated dose of Statin and Ezetimibe: yes Lipid Panel Results: Results for orders placed or performed in visit on 01/19/24 LIPID PANEL WITH DIRECT LDL IF TG IS HIGH Result Value Ref Range Triglycerides 147 <=174 mg/dL Cholesterol 240 (H) <200 mg/dL HDL Cholesterol 61 >49 mg/dL Non-HDL Cholesterol 179 (H) <=159 mg/dL LDL Cholesterol 150 (H) <=129 mg/dL Route referral message to CARDIOLOGY PHARMACIST LARAMIE [[id number]]. Please submit to BOTH primary insurance and secondary insurance (ex PACE/PACENET) if applicable. documented in this encounter Plan of Treatment Upcoming Encounters Date Type Department Care Team (Late st Contact Info) Description 03/06/2024 10:30 AM EDT Anticoagulation Pharmacy, [address] [place] [address] [place] [address] 03/16/2024 9:00 AM EDT Imaging [facility]nd [facility] [address] [place] [address] 03/17/2024 10:00 AM EDT Imaging [facility] 2nd Floor [facility] [address] [place] [address] 04/17/2024 11:00 AM EDT Office Visit Cardiology, [facility] [address] [place] [address] Daylin Diaz PA-C [address] [place] [address] 06/14/2024 1:40 PM EDT Office Visit Family Medicine [address] [place] [phone] Danika Chairez PA-C [address] [place] [address] [place] [address] 06/19/2024 12:50 PM EDT Laboratory Laboratory [address] [place] [phone] [facility] [address] [place] [address] 06/26/2024 1:00 PM EDT Office Visit Cardiology, [facility] [address] [place] [address] [facility] Cardiology [facility] [address] [place] [address] 07/03/2024 11:40 AM EDT Office Visit Nutrition & Weight Management, [facility] [address] [place] [address] Tami Garrett PA-C [address] [place] [address] 08/03/2024 1:00 PM EST Office Visit Orthopaedics [facility] 132 [facility] [place] [address] Herve Valera PA-C [address] [place] [address] 08/07/2024 1:00 PM EST Laboratory Laboratory [address] [place] [phone] [place], [address] [place] [address] 08/10/2024 1:00 PM EST Office Visit [facility] 132 [facility] [place] [address] Herve Valera PA-C [address] [place] [address] 08/14/2024 2:00 PM EST Office Visit Hematology/Oncology [facility] [address] [place] [phone] Jeanette Arellano MD [address] [place] [address] 08/23/2024 2:55 PM EST Office Visit Urogynecology [facility] 132 [facility] [place] [address] Bay Ferreira MD [address] [place] [address] Nurse Zach Hernandez [address] [place] [address] 08/24/2024 1:00 PM EST Office Visit Orthopaedics [facility] 132 [facility] [place] [address] Herve Valera PA-C [address] [place] [address] 12/19/2024 1:40 PM EDT Office Visit Family [address] [place] [phone] Yoav Kong MD [address] [place] [address] [place] [address] 01/09/2025 10:30 AM EDT Office Visit Sleep Disorders Ctr [facility] [address] [place] [phone] Yara Beck CRNP [address] [place] [address] Scheduled Procedures Name Priority Associated Diagnoses Date/Ti me COLONOSCOPY FLEXIBLE PROXIMAL DIAGNOSTIC Recall Colon cancer screening Health Maintenance Due Date Last Done Comments Depression Screening 03/28/2022 03/28/2021 DTaP,Tdap,and Td Vaccines (2 - Td or Tdap) 06/14/2022 06/14/2012, 09/27/2005 COVID-19 Vaccine ( season) 2023 08/02/2023, 01/27/2022, 07/15/2021, Additional history exists CKD PHOS USE SMARTSET 06730 06/10/202405/22, 06/23/2022, 07/21/2021, Additional history exists GFR 07/08/2024 01/07/2024, 05/22, 10/16/2022, Additional history exists CKD HGB USE SMARTSET 70163 01/06/202501/06, 06/10/2023, 06/10/2023, Additional history exists Albumin/Creatinine [...] Documents on File Type Date Recorded Patient Outbound Telemarketing Representative Expl anation Advance Directives and Livin g Will 05/20/2016 ADVANCE DIRECTIVE Power of Hand Spinner 05/20/2016 POWER OF A TTORNEY * Full Code (Latest Code Status on File) Date Activated Date Inactivated Comments 08/14/2008 10:37 AM 08/14/2008 10:38 AM Care Teams Manager Strategy Relationship Specialty Start Date End Date Yoav Kong MD [address] [place] [address] [place] [address] PCP - General Family Medicine 04/09/14 documented as of this encounter
--- OUTSIDE RECORDS SUMMARY | 2024-06-16 04:09 | External Medical Summary | Summary of Care ---
Author Name Unknown Organization [facility] Address [address] [place] [address] Phone [phone] Care Team Providers Care Fashion Styling Intern Name Role Phone Yoav Kong MD Primary Care Provide r Reason for Visit * Reason Comments Dosage Adjustment In Person (Anticoag Cl inic) Encounter Details Date Type Department Care Team (Latest Contact Info) Description 03/06/2024 10:30 AM EDT Anticoagulation Pharmacy, [address] [place] [address] [place] [address] Anticoagulation management encounter*; History of pulmonary embolism; [...] as of this encounter (statuses as of 03/06/2024) Medications Medication Sig Dispensed Refills Start Date [...] of pulmonary embolism,Factor V Leiden (HCC),Anticoagulation management encounter,nursing home current use of anticoagulant therapy,Venous thrombosis [...] embolus (HCC),HTN, goal below 130/80,Factor V Leiden ([facility]) TAKE 1 TABLET BY MOUTH EVERY DAY [...] to injection. 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 Medication Therapy Disease Management - Anticoagulation Patient: Linette Trujillo | : 1945 Subjective Patient-Reported Symptoms: Patient Findings Negatives: Signs/symptoms of thrombosis, Signs/symptoms of bleeding, Change in health, Change in alcohol use, Change in activity, Upcoming invasive procedure, Missed doses, Extra doses, Change in medications, Change in diet/appetite, Bruising Objective Current Warfarin Dose As of 03/06/2024 Warfarin maintenance plan: 3 mg (2 mg x 1.5) every Mon; 2 mg (2 mg x 1) all other days INR Result As of 03/06/2024 INR goal: 2.0-3.0 INR used for dosin.3 (03/06/2024) Assessment & Plan Warfarin Plan As of 03/06/2024 Full warfarin instructions: 03/06: Hold; Otherwise 3 mg every Mon; 2 mg all other days Next INR check: 03/20/2024 Repeat PT/INR in 2 week(s) Weekly dose: no changes Additional Dosing Information: Description Eats a green smoothie each day Kamala Tijerina [facility] Clinical Pharmacist 03/06/2024, 10:31 AM documented in this encounter Plan of Treatment Upcoming Encounters Date Type Department Care Team (Late st Contact Info) Description 03/15/2024 11:15 AM EDT Office Visit General Surgery, [facility] [address] [place] [address] Roxi Platt MD [address] [place] [address] 03/16/2024 9:00 AM EDT Imaging [facility] 2nd Floor Cardiology, [place] 132 [facility] [place] [address] 03/17/2024 10:00 AM EDT Imaging [facility] 2nd [facility], [address] [place] [address] 03/20/2024 1:00 PM EDT Anticoagulation Pharmacy, [address] [place] [address] [place] [address] 04/17/2024 11:00 AM EDT Office Visit Cardiology, [address] [place] [address] Daylin Diaz PA-C 132 [facility] [place] [address] 06/14/2024 1:40 PM EDT Office Visit Family Medicine [address] [place] [phone] Danika Chairez PA-C [address] [place] [address] [place] [address] 06/19/2024 12:50 PM EDT Laboratory Laboratory [address] [place] [phone] [facility] [address] [place] [address] 06/26/2024 1:00 PM EDT Office Visit Cardiology, [address] [place] [address] [facility] Cardiology [address] [place] [address] 07/03/2024 11:40 AM EDT Office Visit Nutrition & Weight Management, [facility] 132 [facility] [place] [address] Tami Garrett PA-C [address] [place] [address] 08/03/2024 1:00 PM EST Office Visit Orthopaedics [facility] [place] [address] Herve Valera PA-C [address] [place] [address] [place] [address] 08/07/2024 1:00 PM EST Laboratory Laboratory [address] [place] [phone] [place], [address] [place] [address] 08/10/2024 1:00 PM EST Office Visit Orthopaedics [facility] [place] [address] Herve Valera PA-C [address] [place] [address] [place] [address] 08/14/2024 2:00 PM EST Office Visit Hematology/Oncology [facility] [place] [phone] Jeanette Arellano MD 200 [facility] [place] [address] 08/23/2024 2:55 PM EST Office Visit Urogynecology [facility] 132 [facility] [place] [address] Bay Ferreira MD [address] [place] [address] Nurse Zach Hernandez [address] [place] [address] 08/24/2024 1:00 PM EST [facility] [address] [place] [address] Herve Valera PA-C [address] [place] [address] [place] [address] 12/19/2024 1:40 PM EDT Office Visit Family Medicine [address] [place] [phone] Yoav Kong MD [address] [place] [address] [place] [address] 01/09/2025 10:30 AM EDT [facility] [address] [place] [phone] Yara Beck CRNP [address] [place] [address] Scheduled Procedures Name Priority Associated Diagnoses Date/Ti me COLONOSCOPY FLEXIBLE PROXIMAL DIAGNOSTIC Recall Colon cancer screening Health Maintenance Due Date Last Done Comments Depression Screening 03/28/2022 03/28/2021 DTaP,Tdap,and Td Vaccines (2 - Td or Tdap) 06/14/2022 06/14/2012, 09/27/2005 COVID-19 Vaccine ( season) 2023 08/02/2023, 01/27/2022, 07/15/2021, Additional history exists CKD PHOS USE SMARTSET 73121 06/10/202405/22, 06/23/2022, 07/21/2021, Additional history exists GFR 07/08/2024 01/07/2024, 05/22, 10/16/2022, Additional history exists CKD HGB USE SMARTSET 60054 01/06/202501/06, 06/10/2023, 06/10/2023, Additional history exists Albumin/Creatinine [...] Comments INR FINGERSTICK, POINT OF CARE STAT 03/06/2024 10:34 AM EDT History of pulmonary embolism Factor V Leiden (HCC) Anticoagulation management encounter documented in this encounter Results * INR FINGERSTICK, POINT OF CARE (03/06/2024 10:34 AM EDT) Fingerstick INR 3.3 INR 10:36 AM EDT [facility] Blood 03/06/2024 10:3 4 AM EDT 03/06/2024 10:36 AM EDT Narrative [facility] - 03/06/2024 10:36 AM EDT Therapeutic ranges for non-operative patients: Prophylaxsis/treatment of DVT: (Range:2.0-3.0) Treatment of pulmonary embolism:(Range:2.0-3.0) Prevention of systemic embolism from: -tissue heart valves -acute myocardial infarction -valvular heart disease -atrial fibrillation (Range: 2.0-3.0) Mechanical prosthetic valves: (Range: 2.5-3.5) Kamalakarlee Tijerina [facility] POINT OF CARE TEST DOCKED DEVICE UNSOLICITED RESULTS [facility] [place] [address] [place] [address] documented in this encounter Visit Diagnoses Diagnosis Anticoagulation management encounter- Primary Encounter for therapeutic drug monitoring History of pulmonary embolism Personal history of pulmonary embolism Factor V Leiden (HCC) Primary hypercoagulable state documented in this encounter Advance Directives Documents on File Type Date Recorded Patient Bench Chemist Expl anation Advance Directives and Livin g Will 05/20/2016 ADVANCE DIRECTIVE Power of Drawing Supervisor 05/20/2016 POWER OF A TTORNEY * Full Code (Latest Code Status on File) Date Activated Date Inactivated Comments 08/14/2008 10:37 AM 08/14/2008 10:38 AM Care Teams Fashion Styling Intern Relationship Specialty Start Date End Date Yoav Kong MD [address] [place] [address] [place] [address] PCP - General Family Medicine 04/09/14 documented as of this encounter
--- OUTSIDE RECORDS SUMMARY | 2024-06-16 04:09 | External Medical Summary ---
Author Name Unknown Address Unknown Organization : Laboratory Report Ordering Provider Test Date Status PIERO RIVERA 03/20/2024 13:04:23 Final Therapeutic ranges for non-o perative patients:
Prophylaxsis/treatment of DVT: (Range:2.0-3.0)
Treatment of pulmonary embolism:(Range:2.0-3.0)
Prevention of systemic embolism from:
-tissue heart valves
-acute myocardial infarction
-valvular heart disease
-atrial fibrillation
(Range: 2.0-3.0)
Mechanical prosthetic valves: (Range: 2.5-3.5) Observation Date Value Abnormality Reference (Units ) Status INR in Capillary blood by Coagulation assay 03/20/2024 13:04:23 3.3 (INR) Final Performing Location
--- OUTSIDE RECORDS SUMMARY | 2024-06-16 04:09 | External Medical Summary ---
Author Name Unknown Address Unknown Organization : Laboratory Report Ordering Provider Test Date Status PIERO RIVERA 03/06/2024 10:34:01 Final Therapeutic ranges for non-o perative patients:
Prophylaxsis/treatment of DVT: (Range:2.0-3.0)
Treatment of pulmonary embolism:(Range:2.0-3.0)
Prevention of systemic embolism from:
-tissue heart valves
-acute myocardial infarction
-valvular heart disease
-atrial fibrillation
(Range: 2.0-3.0)
Mechanical prosthetic valves: (Range: 2.5-3.5) Observation Date Value Abnormality Reference (Units ) Status INR in Capillary blood by Coagulation assay 03/06/2024 10:34:01 3.3 (INR) Final Performing Location
--- OUTSIDE RECORDS SUMMARY | 2024-06-16 04:10 | External Medical Summary | Summary of Care ---
Author Name Unknown Organization [facility] Address [address] [place] [address] Phone [phone] Care Team Providers Care Electric Switch Repairer Name Role Phone Yoav Kong MD Primary Care Provide r Encounter Details Date Type Department Care Team (Late st Contact Info) Description 02/02/2024 Result Scan Unspecified Department <No scans attached> Allergies Active Allergy Reactions Criticality Noted Date [...] as of this encounter (statuses as of 02/23/2024) Medications Medication Sig Dispensed Refills Start Date [...] of pulmonary embolism,Factor V Leiden (HCC),Anticoagulation management encounter,[facility] current use of anticoagulant therapy,Venous thrombosis TAKE [...] relief is required. 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 COMMON MIGRAINE WITHOUT MENTION OF INTRACTABLE M IGRAINE 01/01/2003 GENERALIZED ANXIETY DIS 12/19/2001 TEMPOROMANDIBULAR JOINT DISORDERS, UNSPECIFIED Mitral valve disorder Gastroesophageal reflux disease without esophagi tis Other allergic rhinitis Overview: ICD-10 update of inactive term Mitral valve prolapse documented as of this encounter (statuses as of 02/23/2024) Resolved Problems Problem Noted Date Diagnosed Date [...] as of this encounter (statuses as of 02/23/2024) Immunizations Name Administration Dates Next Due COVID-19 [...] Team (Late st Contact Info) Description 02/25/2024 9:40 AM EDT Office Visit Cardiology, [address] [place] [address] [facility] Cardiology [address] [place] [address] 03/06/2024 10:30 AM EDT Anticoagulation Pharmacy, [address] [place] [address] [place] [address] 03/16/2024 9:[address] [facility] 132 [facility] [place] [address] 03/17/2024 10:[address] [facility] 2nd Floor Cardiology, [place] [address] [place] [address] 04/17/2024 11:00 AM EDT Office Visit Cardiology, [facility] 132 [facility] [place] [address] Daylin Diaz PA-C [address] [place] [address] 06/14/2024 1:40 PM EDT Office Visit Family Medicine [address] [place] [phone] Danika Chairez PA-C [address] [place] [address] [place] [address] 07/03/2024 11:40 AM EDT Office Visit Nutrition & Weight Management, [facility] [place] [address] Tami Garrett PA-C 132 [facility] [place] [address] 08/03/2024 1:00 PM EST Office Visit Orthopaedics [facility] 132 [facility] [place] [address] Herve Valera PA-C [address] [place] [address] [place] [address] 08/07/2024 1:00 PM EST Laboratory Laboratory [address] [place] [phone] [address] [place] [address] 08/10/2024 1:00 PM EST Office Visit Orthopaedics [facility] 132 [facility] [place] [address] Herve Valera PA-C [address] [place] [address] 08/14/2024 2:00 PM EST Office Visit Hematology/Oncology [facility] [address] [place] [phone] Jeanette Arellano MD [address] [place] [address] 08/23/2024 2:55 PM EST Office Visit Urogynecology [facility] 132 [facility] [place] [address] Bay Ferreira MD 132 [place] [address] Nurse Zach Hernandez [email or web address] 132 [facility] [place] [address] 08/24/2024 1:00 PM EST Office Visit Orthopaedics [facility] 132 [facility] [place] [address] Herve Valera PA-C [address] [place] [address] 12/19/2024 1:40 PM EDT Office Visit Family [address] [place] [phone] Yoav Kong MD [address] [place] [address] [place] [address] 01/09/2025 10:30 AM EDT Office Visit Sleep Disorders Ctr [facility] 132 [facility] [place] [phone] Yara Beck CRNP [address] [place] [address] Scheduled Procedures Name Priority Associated Diagnoses Date/Ti me COLONOSCOPY FLEXIBLE PROXIMAL DIAGNOSTIC Recall Colon cancer screening Health Maintenance Due Date Last Done Comments Depression Screening 03/28/2022 03/28/2021 DTaP,Tdap,and Td Vaccines (2 - Td or Tdap) 06/14/2022 06/14/2012, 09/27/2005 COVID-19 Vaccine (2022- season) 2023 08/02/2023, 01/27/2022, 07/15/2021, Additional history exists CKD PHOS USE SMARTSET 10525 06/10/202405/22, 06/23/2022, 07/21/2021, Additional history exists GFR 07/08/2024 01/07/2024, 05/22, 10/16/2022, Additional history exists CKD HGB USE SMARTSET 18986 01/06/202501/06, 06/10/2023, 06/10/2023, Additional history exists Albumin/Creatinine [...] Procedure Name Priority Date/Time Associated Diagnosis Comments RADIOLOGY SCANNED RESULT 02/02/2024 documented in this encounter Results * RADIOLOGY SCANNED RESULT (02/02/2024) 02/02/2024 No Physician Data Unknown DIAGNOSTIC RAD IOLOGY SERVICES documented in this encounter Advance Directives Documents on File Type Date Recorded Patient Assistant Pressman Expl anation Advance Directives and Livin g Will 05/20/2016 ADVANCE DIRECTIVE Power of Filler Leaf Cutter Long 05/20/2016 POWER OF A TTORNEY * Full Code (Latest Code Status on File) Date Activated Date Inactivated Comments 08/14/2008 10:37 AM 08/14/2008 10:38 AM Care Teams Electric Switch Repairer Relationship Specialty Start Date End Date Yoav Kong MD [address] [place] [address] [place] [address] PCP - General Family Medicine 04/09/14 documented as of this encounter
--- OUTSIDE RECORDS SUMMARY | 2024-06-16 04:10 | External Medical Summary | Summary of Care ---
Author Name Unknown Organization [facility] Address [address] [place] [address] Phone [phone] Care Team Providers Care Kitchen Food Assembler Name Role Phone Yoav Kong MD Primary Care Provide r Reason for Visit * Reason Onset Date Comments Test Results 02/08/2024 Encounter Details Date Type Department Care Team (Late st Contact Info) Description 02/08/2024 Telephone Cardiology, [facility] [address] [place] [address] Mary Antonio CRNP [address] [place] [address] Test Results Allergies Active Allergy Reactions Criticality [...] as of this encounter (statuses as of 02/08/2024) Medications Medication Sig Dispensed Refills Start Date [...] pulmonary embolism,Factor V Leiden (HCC),Anticoagulatio n management encounter,terminal gauger current use of anticoagulant therapy,Venous thrombosis TAKE [...] s:Gastroesophageal reflux disease without esophagitis TAKE 1 TAB [...] the morning. 90 Tablet 3 4 Active Atenolol 25 MG Oral Tablet (Tenormin)Indication s:HTN, goal below 140/90,Mitral valve disorder TAKE 1 TABLET BY MOUTH EVERY DAY 90 Tablet 3 3 024 Discontin ued(Medic ation/Dos e Changed) Hospital, Clinic, or Other Facility Administered Medication Ordered Dose Route Frequency Start Date End Date Status Hylan (Synvisc) inj 16 mgIndications:Primary osteoarthritis of right knee 16 mg IX QWEEK 07/08/2023 Active documented as of this encounter (statuses as of 02/08/2024) Active Problems Problem Noted Date Diagnosed Date [...] kidney disease 07/29/2020 Overview: Per CKD protocol Worship or spiritual beliefs affecting medical care 05/25/2019 [...] pulmonary embolism 12/20/2011 Anticoagulation management encounter 12/14/2011 halfway current use of anticoagulant therapy 0 12/14/2011 DYSLIPIDEMIA, GOAL LDL BELOW 100 08/29/2009 Overview: Per Lipid Taxonomy. COMMON MIGRAINE WITHOUT MENTION OF INTRACTABLE M IGRAINE 01/01/2003 GENERALIZED ANXIETY DIS 12/19/2001 TEMPOROMANDIBULAR JOINT DISORDERS, UNSPECIFIED Mitral valve disorder Gastroesophageal reflux disease without esophagi tis Other allergic rhinitis Overview: ICD-10 update of inactive term Mitral valve prolapse documented as of this encounter (statuses as of 02/08/2024) Resolved Problems Problem Noted Date Diagnosed Date [...] as of this encounter (statuses as of 02/08/2024) Immunizations Name Administration Dates Next Due COVID-19 [...] encounter Miscellaneous Notes * Telephone Encounter - Brannon Shafer RN - 02/08/2024 3:08 PM EDT Called and left message on phone to call the clinic if she has the ability to take her BP at home. * Addendum Note - Mary Antonio CRNP - 02/08/2024 2:58 PM EDTAddended by: MARY ANTONIO on: 02/08/2024 02:58 PM Modules accepted: Orders * Telephone Encounter - Mary Antonio CRNP - 02/08/2024 2:56 PM EDT Stop Atenolol and start Metoprolol succinate 25mg daily. Script sent to [facility] pharmacy. Does patient have a home bp cuff that she can monitor her blood pressures? Thank you, Mary * Telephone Encounter - Jami Claire LPN - 02/08/2024 9:49 AM EDT Spoke with patient by phone, gave information in this encounter. Verbalized understanding Agreed to plan of care. Please send metoprolol to [facility] in [place]. Advised pt to stop atenolol once she starts metoprolol. * Telephone Encounter - Brannon Shafer RN - 02/08/2024 9:32 AM EDT Called and left message for the patient to return call to the clinic min regards to the message from Mary WAGNER concerning her ZIO monitor report. * Telephone Encounter - Brannon Shafer RN - 02/08/2024 9:31 AM EDT ----- Message from Mary Antonio sent at 02/07/2024 7:17 PM EDT ----- Please notify patient that I have reviewed her heart monitor. She is expericing a lot of extra beats known as PVC'. Sometimes they are completely harmless, but we have to ensure that her stress test is ok (scheduled for February). She is currently on Atenolol, which I am inclined to want to change thismedication to a different form known as metoprolol to help suppress these extra beats while we await her stress test. The medication will not harm the heart, actually quite the opposite and protect it. It also will not negatively affect her upcomming stress test either. If she is agree able to switch I will order it. documented in this encounter Plan of Treatment Upcoming Encounters Date Type Department Care Team (Late st Contact Info) Description 03/06/2024 10:30 AM EDT Anticoagulation Pharmacy, [address] [place] [address] [place] [address] 03/16/2024 9:00 AM EDT Imaging [facility] 2nd Floor Cardiology, [place] [address] [facility] [place] [address] 03/17/2024 10:00 AM EDT [facility] [address] [facility] [place] [address] 04/17/2024 11:00 AM EDT Office Visit Cardiology, [facility] [address] [place] [address] Daylin Diaz PA-C 132 [facility] [place] [address] 06/14/2024 1:40 PM EDT Office Visit Family Medicine [address] [place] [phone] Danika Chairez PA-C [address] [place] [address] [place] [address] 07/03/2024 11:40 AM EDT Office Visit Nutrition & Weight Management, [facility] [address] [facility] [place] [address] Tami Garrett PA-C 132 [facility] [place] [address] 08/03/2024 1:00 PM EST Office Visit Orthopaedics [facility] [address] [facility] [place] [address] Herve Valera PA-C [address] [place] [address] 08/07/2024 1:00 PM EST Laboratory Laboratory [address] [place] [phone] [address] [place] [address] 08/10/2024 1:00 PM EST [facility] [place] [address] Herve Valera PA-C [address] [place] [address] 08/14/2024 2:00 PM EST Office Visit Hematology/Oncology [facility] [place] [address] [place] [phone] Jeanette Arellano MD [address] [place] [phone] 08/23/2024 2:55 PM EST Office Visit Urogynecology [facility] [address] [facility] [place] [address] Bay Ferreira MD 132 [facility] [place] [address] Nurse Zach Hernandez 132 [facility] [place] [address] 08/24/2024 1:00 PM EST [facility] [address] [place] [address] Herve Valera PA-C [address] [place] [address] 12/19/2024 1:40 PM EDT Office Visit Family Medicine [address] [phone] Yoav Kong MD [address] [place] [address] [place] [address] 01/09/2025 10:30 AM EDT Office Visit Sleep Disorders Ctr Shayna Hernandez[address] [place] [phone] Yara Beck CRNP 132 [facility] [place] [address] Scheduled Procedures Name Priority Associated Diagnoses Date/Ti me COLONOSCOPY FLEXIBLE PROXIMAL DIAGNOSTIC Recall Colon cancer screening Health Maintenance Due Date Last Done Comments Depression Screening 03/28/2022 03/28/2021 DTaP,Tdap,and Td Vaccines (2 - Td or Tdap) 06/14/2022 06/14/2012, 09/27/2005 COVID-19 Vaccine ( season) 2023 08/02/2023, 06/19/2022, 01/27/2022, Additional history exists CKD PHOS USE SMARTSET 69461 06/10/202405/22, 06/23/2022, 07/21/2021, Additional history exists GFR 07/08/2024 01/07/2024, 05/22, 10/16/2022, Additional history exists CKD HGB USE SMARTSET 31638 01/06/202501/06, 06/10/2023, 06/10/2023, Additional history exists Albumin/Creatinine [...] as of this encounter Visit Diagnoses Diagnosis Palpitations- Primary documented in this encounter Advance Directives Documents on File Type Date Recorded Patient Spice Blender Expl anation Advance Directives and Karrie Gutierrez 05/20/2016 ADVANCE DIRECTIVE Power of Epic [employer] [facility] 05/20/2016 POWER OF A TTORNEY * Full Code (Latest Code Status on File) Date Activated Date Inactivated Comments 08/14/2008 10:37 AM 08/14/2008 10:38 AM Care Teams Kitchen Food Assembler Relationship Specialty Start Date End Date Yoav Kong MD [address] [place] [address] [place] [phone] PCP - General Family Medicine 04/09/14 documented as of this encounter
--- OUTSIDE RECORDS SUMMARY | 2024-06-16 04:10 | External Medical Summary | Summary of Care ---
Author Name Unknown Organization [facility] Address [address] [place] [address] Phone [phone] Care Team Providers Care Automation Software Engineer Name Role Phone Yoav Kong MD Primary Care Provide r Reason for Referral * Evaluate & Treat - Unlimited Visits (Within 30 days (routine)) - Pending Review Specialty Diagnoses / Procedures Referred By Parrish t Referred To Contact Pharmacist / Pharmacy Diagnoses Statin intolerance Hyperlipidemia with target LDL less than 70 Daylin Diaz PA-C [address] [place] [address] Referral ID Status Reason Start Date Expiration Date Visits Requested Visits Authorized [id number] Pending Review Specialty Services Required 02/08/2024 99 99 Question Answer Referral Priority Within 30 days (routine) Where should this appointment be scheduled? [facility] Referring Provider Role: Specialist Specialty: Cardio Reason for Referral: Lipids Comments Pharmacist Medication Therapy Management: Minimum frequency patient should be seen in person for medication management: as appropriate per clinical condition and patient status By my signature, I understand that my patient Linette Trujillo will have her medication therapy managed by the [facility] Medication Therapy [facility] ([facility]) per established policies, procedures, and protocols. I also certify that this referral may serve as an initiation of service for the management of drug therapy in the above noted patient. [facility] providers will be responsible for scheduling patient visits, obtaining appropriate laboratory studies, and adjusting medication management therapy per patient's need, in addition to those roles spelled out in the clinic policy, procedures, and drug management protocols. I understand that the service provided by the [facility] is voluntary and have informed patient that they can refuse the service at their discretion. I am aware that the [facility] will provide me with a copy of the patient encounter via my [employer]. I authorize the [facility] to carry out these activities on my behalf. I consider this program to be a necessary part of the patient's medical care. Daylin Diaz PA-C Reason for Visit * Reason Onset Date Comments Test Results 02/07/2024 Encounter Details Date Type Department Care Team (Late st Contact Info) Description 02/07/2024 Telephone Cardiology, [facility] [address] [place] [phone] Daylin Diaz PA-C [address] [place] [phone] Test Results Allergies Active Allergy Reactions Criticality [...] as of this encounter (statuses as of 02/10/2024) Medications Medication Sig Dispensed Refills Start Date [...] pulmonary embolism,Factor V Leiden (HCC),Anticoagulatio n management encounter,ferry terminal supervisor current use of [...] relief is required. 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 COMMON MIGRAINE WITHOUT MENTION OF INTRACTABLE M IGRAINE 01/01/2003 GENERALIZED ANXIETY DIS 12/19/2001 TEMPOROMANDIBULAR JOINT DISORDERS, UNSPECIFIED Mitral valve disorder Gastroesophageal reflux disease without esophagi tis Other allergic rhinitis Overview: ICD-10 update of inactive term Mitral valve prolapse documented as of this encounter (statuses as of 02/10/2024) Resolved Problems Problem Noted Date Diagnosed Date [...] as of this encounter (statuses as of 02/10/2024) Immunizations Name Administration Dates Next Due COVID-19 [...] Telephone Encounter - Richar Pennington OSA - 02/10/2024 10:22 AM EDT Called patient she is all setup for: Wednesday Arrive by 9:45 AMAppt at 10:00 AM (40 min) Patient is aware of the date and time. * Telephone Encounter - Richar Pennington OSA - 02/08/2024 11:06 AM EDT Called patient, LM and also sent a [employer] message as well to call me back. * Addendum Note - Zhanna Moss RPh - 02/08/2024 9:29 AM EDT Addended by: ZHANNA MOSS on: 02/08/2024 09:29 AM Modules accepted: Orders * Telephone Encounter - Zhanna Moss RP - 02/08/2024 9:29 AM EDT Cardiology Appointment Request Please schedule the following visits: Referring provider: Daylin Diaz Patient to be scheduled for visit type: Dosage Adj In Person [[id number]] on Pharmacist Dept/Schedule Cardiology Shayna Hernandez [[id number]] & [facility] Clinic Cardio Shayna Hernandez [[id number]] Reason for visit: Lipid Co-Management Length of visit: 40 minutes (new visit) Time Frame: within next 30 days * Addendum Note - Fede Pires LPN - 02/07/2024 3:01 PM EDTAddended by: FEDE PIRES on: 02/07/2024 03:01 PM Modules accepted: Orders * Telephone Encounter - Fede Pires LPN - 02/07/2024 2:58 PM EDT Cardiology Pre-Cert Request Medication/Disease State Information: Medication: PCSK9i - Medication choice per pharmacist. . Referral for pharmacist for: Pharmacist Co-Management Diagnosis (including ICD-10): Hyperlipidemia: E78.5 Medication(s) Tried/Failed/Contraindicated: statin See corresponding visit note(s) for additional supporting clinical information. Office Information: Prescriber: Daylin Diaz PA-C Route to Cardiology Pharmacist Pool [id number]. *Do not send prescription at this time. Pre-cert will be completed prior to sending prescription* * Telephone Encounter - Clari Freitas OSA - 02/07/2024 1:28 PM EDT Person calling: Linette Gael Relationship to patient: self Number to return call: [phone] Reason for call: MTM Cardio pharm referral/prior auth Pharmacy: n/a Provider Name:Joe Horacio afternoon, Patient returning call regarding referral for MTM cardio referral in regards to the PCSK9 inhibitor, her silver scripts would need a prior authorization, but they will cover either Repatha or Praluent. Please place referral and send prior auth as needed, thank you BIANCA Galvez * Telephone Encounter - Fede Pires LPN - 02/07/2024 11:19 AM EDT Attempted by phone, no answer, LMOM sent my chart * Telephone Encounter - Fede Pires LPN - 02/07/2024 11:13 AM EDT ----- Message from Daylin Diaz sent at 02/02/2024 5:06 PM EDT ----- LDL is trending higher. Triglycerides improving. Continue Zetia. History of statin intolerance. She may be a candidate for PCSK9 inhib. Recommend MTM referral for lipids to discuss alternative medications for her cholesterol if she is agreeable. documented in this encounter Plan of Treatment Upcoming Encounters Date Type Department Care Team (Late st Contact Info) Description 02/25/2024 10:00 AM EDT Office Visit Cardiology, [facility] [address] [place] [address] [facility] Cardiology [facility] [place] [phone] 03/06/2024 10:30 AM EDT Anticoagulation Pharmacy, [address] [place] [address] [place] [address] 03/16/2024 9:00 AM EDT Imaging [facility] 2nd [facility] [address] [place] [place] [address] 03/17/2024 10:00 AM EDT Imaging [address], [place] [address] [place] [address] 04/17/2024 11:00 AM EDT Office Visit Cardiology, [facility] [address] [place] [address] Daylin Diaz PA-C [address] [place] [address] 06/14/2024 1:40 PM EDT Office Visit Family Medicine [address] [place] [phone] Danika Chairez PA-C [address] [place] [address] [place] [address] 07/03/2024 11:40 AM EDT Office Visit Nutrition & Weight Management, [facility] [address] [place] [address] Tami Garrett PA-C [address] [place] [address] 08/03/2024 1:00 PM EST Office Visit Orthopaedics [facility] 132 [facility] [place] [address] Herve Valera PA-C [address] [place] [phone] 08/07/2024 1:00 PM EST Laboratory Laboratory [address] [place] [phone] [place], [address] [place] [address] 08/10/2024 1:00 PM EST Office [facility] 132 [facility] [place] [address] Herve Valera PA-C [address] [place] [address] 08/14/2024 2:00 PM EST Office Visit Hematology/Oncology [facility] [address] [place] [phone] Jeanette Arellano MD [address] [place] [address] 08/23/2024 2:55 PM EST Office Visit Urogynecology [facility] 132 [facility] [place] [address] Bay Ferreira MD 132 [facility] [place] [address] Nurse Zach Hernandez [facility] [address] [facility] [place] [address] 08/24/2024 1:00 PM EST Office Visit Orthopaedics [facility] 132 [facility] [place] [address] Herve Valera PA-C [address] [place] [address] 12/19/2024 1:40 PM EDT Office Visit Family Medicine [address] [place] [phone] Yoav Kong MD [address] [place] [address] [place] [address] 01/09/2025 10:30 AM EDT Office Visit Sleep Disorders Ctr [facility] [address] [facility] [place] [phone] Yara Beck CRNP 132 [facility] [place] [address] Scheduled Procedures Name Priority Associated Diagnoses Date/Ti me COLONOSCOPY FLEXIBLE PROXIMAL DIAGNOSTIC Recall Colon cancer screening Scheduled Referrals Name Type Priority Associated Diagnoses Orde r Schedule PHARMACIST MEDS THERAPY MGMT REFERRAL OP Referral Within 30 days (routine) Statin intolerance Hyperlipidemia with target LDL less than 70 Ordered: 02/08/2024 Health Maintenance Due Date Last Done Comments Depression Screening 03/28/2022 03/28/2021 DTaP,Tdap,and Td Vaccines (2 - Td or Tdap) 06/14/2022 06/14/2012, 09/27/2005 COVID-19 Vaccine ( season) 2023 08/02/2023, 06/19/2022, 01/27/2022, Additional history exists CKD PHOS USE SMARTSET 57922 06/10/202405/22, 06/23/2022, 07/21/2021, Additional history exists GFR 07/08/2024 01/07/2024, 05/22, 10/16/2022, Additional history exists CKD HGB USE SMARTSET 65086 01/06/202501/06, 06/10/2023, 06/10/2023, Additional history exists Albumin/Creatinine [...] as of this encounter Visit Diagnoses Diagnosis Hyperlipidemia with target LDL less than 70- Primary Other and unspecified hyperlipidemia Statin intolerance Other drug allergy documented in this encounter Advance Directives Documents on File Type Date Recorded Patient Blindmaker Expl anation Advance Directives and Livin g Will 05/20/2016 ADVANCE DIRECTIVE Power of Pharmacognosist 05/20/2016 POWER OF A TTORNEY * Full Code (Latest Code Status on File) Date Activated Date Inactivated Comments 08/14/2008 10:37 AM 08/14/2008 10:38 AM Care Teams Automation Software Engineer Relationship Specialty Start Date End Date Yoav Kong MD [address] [place] [address] [place] [address] PCP - General Family Medicine 04/09/14 documented as of this encounter
--- OUTSIDE RECORDS SUMMARY | 2024-06-16 04:10 | External Medical Summary | Summary of Care ---
Author Name Unknown Organization [facility] Address [address] [address] Phone [phone] Care Team Providers Care Circular Knife Cutter Machine Name Role Phone Yoav Kong MD Primary Care Provide r Reason for Visit * Reason Onset Date Comments Pre Cert/Prior Auth 02/25/2024 Repatha 140 Encounter Details Date Type Department Care Team (Late st Contact Info) Description 02/25/2024 Telephone Cardiology, [facility] 132 [facility] [place] [phone] [facility] 21 [facility] [place] [phone] Pre Cert/Prior Auth (Repatha 140) Allergies Active Allergy Reactions Criticality Noted Date [...] as of this encounter (statuses as of 02/25/2024) Medications Medication Sig Dispensed Refills Start Date [...] of pulmonary embolism,Factor V Leiden (HCC),Anticoagulation management encounter,extermination inspector current use of anticoagulant therapy,Venous thrombosis TAKE [...] as of this encounter (statuses as of 02/25/2024) Active Problems Problem Noted Date Diagnosed Date [...] kidney disease 07/29/2020 Overview: Per CKD protocol Jehovah'S Witness or spiritual beliefs affecting medical care 05/25/2019 [...] pulmonary embolism 12/20/2011 Anticoagulation management encounter 12/14/2011 correction current use of anticoagulant therapy 0 12/14/2011 DYSLIPIDEMIA, GOAL LDL BELOW 100 08/29/2009 Overview: Per Lipid Taxonomy. COMMON MIGRAINE WITHOUT MENTION OF INTRACTABLE M IGRAINE 01/01/2003 GENERALIZED ANXIETY DIS 12/19/2001 TEMPOROMANDIBULAR JOINT DISORDERS, UNSPECIFIED Mitral valve disorder Gastroesophageal reflux disease without esophagi tis Other allergic rhinitis Overview: ICD-10 update of inactive term Mitral valve prolapse documented as of this encounter (statuses as of 02/25/2024) Resolved Problems Problem Noted Date Diagnosed Date [...] as of this encounter (statuses as of 02/25/2024) Immunizations Name Administration Dates Next Due COVID-19 [...] mg/dL Route referral message to CARDIOLOGY PHARMACIST POOL [[id number]]. Please submit to BOTH primary insurance and secondary insurance (ex PACE/PACENET) if applicable. documented in this encounter Plan of Treatment Upcoming Encounters Date Type Department Care Team (Late st Contact Info) Description 03/06/2024 10:30 AM EDT Anticoagulation Pharmacy, [address] [place] [address] [place] [address] 03/16/2024 9:00 AM EDT Imaging [facility] 2nd Floor Cardiology, [address] [place] [address] 03/17/2024 10:00 AM EDT Imaging [facility] 2nd Floor Cardiology, [place] [address] [place] [address] 04/17/2024 11:00 AM EDT Office Visit Cardiology, [facility] [address] [place] [address] Daylin Diaz PA-C [address] [place] [address] 06/14/2024 1:40 PM EDT Office Visit Family Medicine [address] [place] [phone] Danika Chairez PA-C [address] [place] [address] [place] [address] 06/19/2024 12:50 PM EDT Laboratory Laboratory [address] [place] [phone] [place], Lab [address] [place] [address] 06/26/2024 1:00 PM EDT Office Visit Cardiology, [facility] [address] [place] [address] [facility] Cardiology [facility] [address] [place] [address] 07/03/2024 11:40 AM EDT Office Visit Nutrition & Weight Management, [facility] [address] [place] [address] Tami Garrett PA-C [address] [place] [address] 08/03/2024 1:00 PM EST Office Visit Orthopaedics [facility] [address] [place] [address] Herve Valera PA-C [address] [place] [address] [place] [address] 08/07/2024 1:00 PM EST Laboratory Laboratory [address] [place] [phone] [place], Lab [address] [place] [address] 08/10/2024 1:00 PM EST Office Visit Orthopaedics [facility] 132 [facility] [place] [address] Herve Valera PA-C [address] [place] [address] 08/14/2024 2:00 PM EST Office Visit Hematology/Oncology [facility] [address] [place] [phone] Jeanette Arellano MD [address] [place] [address] 08/23/2024 2:55 PM EST Office Visit Urogynecology [facility] 132 [facility] [place] [address] Bay Ferreira MD 132 [facility] [address] Nurse Zach Hernandez [facility] [place] [address] 08/24/2024 1:00 PM EST Office Visit Orthopaedics [facility] 132 [facility] [place] [address] Herve Valera PA-C [address] [place] [address] 12/19/2024 1:40 PM EDT Office Visit Family Medicine [address] [place] [phone] Yoav Kong MD [address] [place] [address] [place] [address] 01/09/2025 10:30 AM EDT Office Visit Sleep Disorders Ctr [facility] [address] [place] [phone] Yara Beck CRNP [address] [place] [address] Scheduled Procedures Name Priority Associated Diagnoses Date/Ti me COLONOSCOPY FLEXIBLE PROXIMAL DIAGNOSTIC Recall Colon cancer screening Health Maintenance Due Date Last Done Comments Depression Screening 03/28/2022 03/28/2021 DTaP,Tdap,and Td Vaccines (2 - Td or Tdap) 06/14/2022 06/14/2012, 09/27/2005 COVID-19 Vaccine ( season) 2023 08/02/2023, 01/27/2022, 07/15/2021, Additional history exists CKD PHOS USE SMARTSET 39064 06/10/202405/22, 06/23/2022, 07/21/2021, Additional history exists GFR 07/08/2024 01/07/2024, 05/22, 10/16/2022, Additional history exists CKD HGB USE SMARTSET 74036 01/06/202501/06, 06/10/2023, 06/10/2023, Additional history exists Albumin/Creatinine [...] Documents on File Type Date Recorded Patient Multifocal Button Grinder Expl anation Advance Directives and Livin g Will 05/20/2016 ADVANCE DIRECTIVE Power of Unclaimed Property Manager 05/20/2016 POWER OF A TTORNEY * Full Code (Latest Code Status on File) Date Activated Date Inactivated Comments 08/14/2008 10:37 AM 08/14/2008 10:38 AM Care Teams Circular Knife Cutter Machine Relationship Specialty Start Date End Date Yoav Kong MD [address] [place] [address] [place] [phone] PCP - General Family Medicine 04/09/14 documented as of this encounter
--- OUTSIDE RECORDS SUMMARY | 2024-06-16 04:10 | External Medical Summary | Summary of Care ---
Author Name Unknown Organization [facility] Address [address] [place] [address] Phone [phone] Care Team Providers Care Security Escort Name Role Phone Yoav Kong MD Primary Care Provide r Reason for Visit * Reason Onset Date Comments Test Results 02/08/2024 Encounter Details Date Type Department Care Team (Late st Contact Info) Description 02/08/2024 Telephone Cardiology, [facility] [address] [place] [address] Mary Antonio CRNP [address] [facility] [place] [address] Test Results Allergies Active Allergy Reactions Criticality [...] pulmonary embolism,Factor V Leiden (HCC),Anticoagulatio n management encounter,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 current use of anticoagulant therapy,Venous thrombosis [...] kidney disease 07/29/2020 Overview: Per CKD protocol Jainism or spiritual beliefs affecting medical care 05/25/2019 [...] pulmonary embolism 12/20/2011 Anticoagulation management encounter 12/14/2011 [facility] current use of anticoagulant therapy 0 12/14/2011 [...] as of this encounter Miscellaneous Notes * Addendum Note - Mary Antonio CRNP - 02/08/2024 2:58 PM EDTAddended by: MARY ANTONIO on: 02/08/2024 02:58 PM Modules accepted: Orders * Telephone Encounter - Mary Antonio CRNP - 02/08/2024 2:56 PM EDT Stop Atenolol and start Metoprolol succinate 25mg daily. Script sent to [facility] pharmacy. Does patient have a home bp cuff that she can monitor her blood pressures? Thank you, Mary * Telephone Encounter - Jami Claire LPN - 02/08/2024 9:49 AM EDT Spoke with patient by phone, gave information in this encounter. Verbalized understanding Agreed to plan of care. Please send metoprolol to [facility] in [place]. Advised pt to stop atenolol once she [...] Description 03/06/2024 10:30 AM EDT Anticoagulation Pharmacy, [address] [place] [address] [place] [address] 03/16/2024 9:00 AM EDT Imaging [facility] [address] [place] [address] 03/17/2024 10:00 AM EDT Imaging [address] 132 [facility] [place] [address] 04/17/2024 11:00 AM EDT Office Visit Cardiology, [facility] 132 [facility] [place] [address] Daylin Diaz PA-C 132 [facility] [place] [address] 06/14/2024 1:40 PM EDT Office Visit Family Medicine [address] [place] [phone] aDnika Chairez PA-C [address] [place] [address] [place] [address] 07/03/2024 11:40 AM EDT Office Visit Nutrition & Weight Management, [facility] 132 [facility] [place] [address] Tami Garrett PA-C [address] [place] [address] 08/03/2024 1:00 PM EST Office Visit Orthopaedics [facility] [place] [address] Herve Valera PA-C [address] [place] [address] 08/07/2024 1:00 PM EST Laboratory Laboratory [address] [place] [phone] [address] [place] [address] 08/10/2024 1:00 PM EST Office Visit Orthopaedics [facility] [place] [address] Herve Valera PA-C [address] [place] [address] 08/14/2024 2:00 PM EST Office Visit Hematology/Oncology [facility] 200 [facility] [place] [phone] Jeanette Arellano MD 200 [facility] [place] [address] 08/23/2024 2:55 PM EST Office Visit Urogynecology [facility] 132 [facility] [place] [address] Bay Ferreira MD [address] [place] [address] Nurse Zach Hernandez [address] [place] [address] 08/24/2024 1:00 PM EST [facility] [address] [place] [address] Herve Valera PA-C [address] [place] [address] 12/19/2024 1:40 PM EDT Office Visit Family Medicine [address] [place] [phone] Yoav Kong MD [address] [place] [address] [place] [address] 01/09/2025 10:30 AM EDT [facility] [address] [place] [phone] Yara Beck CRNP [address] [place] [address] Scheduled Procedures Name Priority Associated Diagnoses Date/Ti me COLONOSCOPY FLEXIBLE PROXIMAL DIAGNOSTIC Recall Colon cancer screening Health Maintenance Due Date Last Done Comments Depression Screening 03/28/2022 03/28/2021 DTaP,Tdap,and Td Vaccines (2 - Td or Tdap) 06/14/2022 06/14/2012, 09/27/2005 COVID-19 Vaccine ( season) 2023 08/02/2023, 06/19/2022, 01/27/2022, Additional history exists CKD PHOS USE SMARTSET 27612 06/10/202405/22, 06/23/2022, 07/21/2021, Additional history exists GFR 07/08/2024 01/07/2024, 05/22, 10/16/2022, Additional history exists CKD HGB USE SMARTSET 34788 01/06/202501/06, 06/10/2023, 06/10/2023, Additional history exists Albumin/Creatinine [...] Documents on File Type Date Recorded Patient Audio Production Engineer Expl anation Advance Directives and Karrie mata Will 05/20/2016 ADVANCE DIRECTIVE Power of Time Signal Wirer 05/20/2016 POWER OF A TTORNEY * Full Code (Latest Code Status on File) Date Activated Date Inactivated Comments 08/14/2008 10:37 AM 08/14/2008 10:38 AM Care Teams Security Escort Relationship Specialty Start Date End Date Yoav Kong MD [address] [place] [address] [place] [address] PCP - General Family Medicine 04/09/14 documented as of this encounter
--- OUTSIDE RECORDS SUMMARY | 2024-06-16 04:10 | External Medical Summary | Summary of Care ---
Author Name Unknown Organization [facility] Address [address] [place] [address] Phone [phone] Care Team Providers Care Personal Vehicle Advisor Name Role Phone Yoav Kong MD Primary Care Provide r Reason for Visit * Reason Comments Dosage Adjustment In Person (Anticoag Cl inic) Hyperlipidemia Encounter Details Date Type Department Care Team (Late st Contact Info) Description 02/25/2024 9:40 AM EDT Office Visit Cardiology, [facility] 132 [facility] [place] [address] [facility] Cardiology [facility] 132 [facility] [place] [address] Hyperlipidemia with target LDL less than 70* Allergies Active Allergy Reactions Criticality Noted Date [...] kidney disease 07/29/2020 Overview: Per CKD protocol Adventism or spiritual beliefs affecting medical care 05/25/2019 [...] on file documented as of this encounter Patient Instructions * Patient Instructions* Zhanna Molina RPh - 02/25/2024 10:04 AM EDT START Repatha 140 mg every 2 weeks Continue zetia 10 mg daily Fasting lab work before our next appt [phone] Zhanna Damian D Clinical [facility] Pharmacist Cardiology 02/25/2024,10:03 AM documented in this encounter Progress Notes * Zhanna Molina RPh - 02/25/2024 9:42 AM EDT PHARMACY CHRONIC DISEASE MANAGEMENT - HYPERLIPIDEMIA HPI: Linette Trujillo is a 78 year old year old female. Referred for HLD management by Daylin Diaz. Previous medication use: statins History of statin intolerance: yes Statin names, doses, frequency tried and outcome: Atorvastatin ---Tendon tear while on medication x2 times Any contraindications to HLD medications: none Current medications which can be contributing: diuretics and beta blockers Family history of HLD: yes Current genetic disorder diagnosis: no Smoking history: never Alcohol use: wine once a week at most Diagnosis of diabetes: no Clinical ASCVD/Risk Score: The 10-year ASCVD risk score (Ale ENCARNACION, et al., 2019) is: 42.8% Values used to calculate the score: Age: 78 years Sex: Female Is Non- : No Diabetic: No Tobacco smoker: No Systolic Blood Pressure: 156 mmHg Is BP treated: Yes HDL Cholesterol: 61 mg/dL Total Cholesterol: 240 mg/dL Diet review: small portions Only drinking water Exercise review: walking difficult due to SOB; stays active around the house; trying to lose weight 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 management encounter halfway current use of anticoagulant therapy Factor V Leiden (HCC) HTN, goal below 140/90 History of pulmonary embolism Hypothyroidism Spider veins of both lower extremities Statin intolerance BIANCA (obstructive sleep apnea) Varicose veins of both legs with edema De Quervain's tenosynovitis Slac (scapholunate advanced collapse) of wrist, right Primary osteoarthritis of first carpometacarpal joint of right hand Adventism or spiritual beliefs affecting medical care Hypertensive kidney disease with stage 3a chronic kidney disease Chronic kidney disease, stage 3a ([facility]) Infiltrating ductal carcinoma of left breast ([facility]) Laceration of left index finger without foreign body without damage to nail Diastolic dysfunction Obesity, morbid (more than 100 lbs over ideal weight or BMI > 40) ([facility]) Review of patient's allergies indicates: Allergen Reactions Gemtesa [Vibegron] Anaphylaxis Exgest La [Ppa-Gg Cr] Other (Please comment) Raises blood pressure and experiences heart palpatations. Nitrofurantoin Monohyd Macro Hives Avelox [Moxifloxacin Hydrochloride] "patient states her pharmacist told her not to take this med" Ciprofloxacin Other (Please comment) Caused tendon tears Dilaudid [Hydromorphone Hcl] Nausea/vomiting Esomeprazole migraine headache nexium Flagyl [Metronidazole] Hives Hydrocodone Itching Moxifloxacin Unknown Nickel Rash Ozempic (0.25 Or 0.5 Mg-Dose) [Semaglutide(0.25 Or 0.5mg-Dos)] Nausea, diarrhea, rash Phenylpropanolamine Hcl Exgest LA--heart palpitations/side effect Scopolamine Other (Please comment) "it dehydrates me" Sulfa Antibiotics Hives and Nausea/vomiting Other reaction(s): sick to stomach Terazol [Terconazole] hives Terconazole Unknown Fluconazole Hives Objective: Lab Results Component Value Date/Time LDL (CALCULATED) [...] - [facility] NOT APPLICABLE 06/27/2019 10:22 AM Lab Results Component Value Date/Time AST 47 (H) 12/25/1996 04:45 PM AST - [facility] 20 01/07/2024 04:06 PM AST - [facility] 25 10/16/2022 03:53 PM AST - [facility] 24 12/25/2021 04:11 PM AST - [facility] 25 06/06/2020 10:35 AM AST - [facility] 22 01/15/2020 10:05 AM AST - [facility] 31 06/27/2019 10:22 AM Lab Results Component Value Date/Time ALT - [facility] 27 01/07/2024 04:06 PM ALT - [facility] 24 10/16/2022 03:53 PM ALT - [facility] 21 12/25/2021 04:11 PM ALT - [facility] 20 06/06/2020 10:35 AM ALT - [facility] 28 01/15/2020 10:05 AM ALT - [facility] 27 06/27/2019 10:22 AM Lab Results Component Value Date/Time CK - [facility] 101 08/10/2019 10:43 AM Lab Results Component Value Date/Time 25-HYDROXY VITAMIN D - [facility] 74 06/10/2023 03:20 PM Lab Results Component Value Date/Time TSH - [facility] 2.08 01/19/2024 08:26 AM TSH - [facility] 1.92 06/06/2020 10:35 AM Lab Results Component Value Date/Time T4, FREE - [facility] 1.41 08/28/2014 10:12 AM Hemoglobin AIC Results: Lab Results Component Value Date/Time HEMOGLOBIN A1C - [facility] 5.5 06/10/2023 03:20 PM HEMOGLOBIN A1C - [facility] 5.7 (H) 06/12/2022 10:50 AM HEMOGLOBIN A1C - [facility] 5.5 07/22/2018 03:07 PM HEMOGLOBIN A1C - [facility] 5.7 09/29/2012 02:50 PM Current Cardiac Medication(s): Metoprolol Er 25 mg daily Zetia 10 mg daily Spironolactone 25 mg daily Torsemide 20 mg daily Warfarin Assessment & Plan: Uncontrolled HLD -Target LDL <100 -Start Repatha 140 mg every 2 weeks Reviewed most recent lipid panel results with patient; discussed each component of lipid panel and optimal levels of such components (i.e. TG,HDL-chol,LDL-chol). Lengthy discussion with patient regarding diet. Counseled patient to reduce dietary intake of fats,especially trans-fat. Counseled patient to limit dietary cholesterol intake to less than 200mg daily. Counseled patient to consume a dietary pattern that emphasized intake of vegetables, fruits, and whole-grains; includes low-fat dairy products, poultry, fish, legumes, non-tropical vegetable oils, and nuts; and limit intake of sweets, sugar-sweetened beverages, cheeses, fried foods and red meats. Counseled patient to engage in aerobic physical activity at least 3 to 4 sessions weekly, lasting on average 40 minutes per session and involving [id number] intensity physical activity. Regarding medications, patient cannot take statins. She was previous on Atorvastatin and had two tendon tears which is believed to be related to the mediation. She is currently on zeita 10 mg daily and tolerating well, however her LDL remains elevated. Will start PCSK9 inhibitor. Educated patient on Repatha. Instructed patient to take 140 mg SQ every 2 weeks. Reviewed subcutaneous injection technique. Do not shake. If refrigerated, allow to stand at room temperature for at least 30-45 minutes. Administer into areas of abdomen except for 2 inches from the navel. May also administer in thigh, or upper arm. Do not administer other injectable drugs at the same injection site. Rotate injection site with each injection. Instructed patient to monitor for hypersensitivity reactions. Educated the patient on common adverse reactions such as nasopharyngitis. Instructed patient to store in the refrigerator until ready to use, however, it may be kept at room temperature for 30 days. For missed doses, instructed patient to administer dose within 7 days from the missed dose and resume original schedule. If an [id number] dose is not administered within 7 days, wait until the next dose on the original schedule. If a once-monthly dose is not administered within 7 days, administer the dose and start a new schedule based on this date. 2. Leiden factor 4 -Hx PE and DVT -Warfarin 3. BIANCA Medication changes: Metoprolol Er 25 mg daily Zetia 10 mg daily Spironolactone 25 mg daily Torsemide 20 mg daily Warfarin START Repatha 140 mg every 2 weeks Labs Due: Lipid panel 3 months (ordered) Follow up: 4 months Zhanna Moss [facility] Clinical Pharmacist 9:42 AM, 02/25/24 documented in this encounter Plan of Treatment Upcoming Encounters Date Type Department Care Team (Late st Contact Info) Description 03/06/2024 10:30 AM EDT Anticoagulation Pharmacy, [address] [place] [address] [place] [address] 03/16/2024 9:00 AM EDT Imaging [facility] 2nd Floor [address] [place] [address] 03/17/2024 10:00 AM EDT Imaging [address] [facility] [place] [address] 04/17/2024 11:00 AM EDT Office Visit Cardiology, [facility] 132 [facility] [place] [address] Daylin Diaz PA-C [address] [place] [address] [place] [address] 06/14/2024 1:40 PM EDT Office Visit Family Medicine [address] [place] [phone] Danika Chairez PA-C [address] [place] [address] [place] [address] 06/19/2024 12:50 PM EDT Laboratory Laboratory [address] [place] [phone] [place] [address] 06/26/2024 1:00 PM EDT Office Visit Cardiology, [address] [place] [address] [facility] Cardiology [address] [place] [address] 07/03/2024 11:40 AM EDT Office Visit Nutrition & Weight Management, [facility] 132 [facility] [place] [address] Tami Garrett PA-C 132 [facility] [place] [address] 08/03/2024 1:00 PM EST Office Visit Orthopaedics [facility] 132 [facility] [place] [address] Herve Valera PA-C [address] [place] [address] 08/07/2024 1:00 PM EST Laboratory Laboratory [address] [place] [phone] [address] [place] [address] 08/10/2024 1:00 PM EST [facility] 132 [facility] [place] [address] Herve Valera PA-C [address] [place] [address] 08/14/2024 2:00 PM EST Office Visit Hematology/Oncology [facility] [address] [facility] [place] [phone] Jeanette Arellano MD [address] [facility] [place] [address] 08/23/2024 2:55 PM EST Office Visit Urogynecology [facility] [address] [facility] [place] [address] Bay Ferreira MD [address] [place] [address] HernandezNurse Zach williamson [facility] 132 [facility] [place] [address] 08/24/2024 1:00 PM EST Office Visit Orthopaedics [facility] 132 [facility] [place] [address] Herve Valera PA-C [address] [place] [address] 12/19/2024 1:40 PM EDT Office Visit Family Medicine [address] [phone] Yoav Kong MD [address] [place] [address] [place] [address] 01/09/2025 10:30 AM EDT Office Visit Sleep Disorders Ctr [facility] 132 [facility] [place] [phone] Yara Beck CRNP 132 [facility] [place] [address] Scheduled Orders Name Type Priority Associated Diagnoses Orde r Schedule LIPID PANEL WITH DIRECT LDL IF TG IS HIGH Lab Routine Hyperlipidemia with target LDL less than 70 Expected: 05/27/2024, Expires: 02/24/2025 Scheduled Procedures Name Priority Associated Diagnoses Date/Ti me COLONOSCOPY FLEXIBLE PROXIMAL DIAGNOSTIC Recall Colon cancer screening Health Maintenance Due Date Last Done Comments Depression Screening 03/28/2022 03/28/2021 DTaP,Tdap,and Td Vaccines (2 - Td or Tdap) 06/14/2022 06/14/2012, 09/27/2005 COVID-19 Vaccine ( season) 2023 08/02/2023, 01/27/2022, 07/15/2021, Additional history exists CKD PHOS USE SMARTSET 38627 06/10/202405/22, 06/23/2022, 07/21/2021, Additional history exists GFR 07/08/2024 01/07/2024, 05/22, 10/16/2022, Additional history exists CKD HGB USE SMARTSET 52504 01/06/202501/06, 06/10/2023, 06/10/2023, Additional history exists Albumin/Creatinine [...] than 70- Primary Other and unspecified hyperlipidemia documented in this encounter Advance Directives Documents on File Type Date Recorded Patient Childcare Center Director Expl anation Advance Directives and Karrie mata Will 05/20/2016 ADVANCE DIRECTIVE Power of Field Underwriter 05/20/2016 POWER OF A TTORNEY * Full Code (Latest Code Status on File) Date Activated Date Inactivated Comments 08/14/2008 10:37 AM 08/14/2008 10:38 AM Care Teams Personal Vehicle Advisor Relationship Specialty Start Date End Date Yoav Kong MD [address] [place] [address] [place] [address] PCP - General Family Medicine 04/09/14 documented as of this encounter
--- OUTSIDE RECORDS SUMMARY | 2024-06-16 04:10 | External Medical Summary | Summary of Care ---
Author Name Unknown Organization [facility] [address] [facility] [address] Phone [phone] Care Team Providers Care Business Intelligence Director Name Role Phone Yoav Kong MD Primary Care Provide r Reason for Visit * Reason Onset Date Comments Precert In Process 02/25/2024 [employer] SS Repatha 140mg/mL sureclick pen (new) Encounter Details Date Type Department Care Team (Late st Contact Info) Description 02/25/2024 Telephone Cardiology, [facility] 132 [facility] [place] [phone] [facility] [place] [phone] Precert In Process ([employer]... 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 Please submit to BOTH primary insurance and secondary insurance (ex PACE/PACENET) if applicable. documented in this encounter Plan of Treatment Upcoming Encounters Date Type Department Care Team (Late st Contact Info) Description 03/06/2024 10:30 AM EDT Anticoagulation Pharmacy, [address] [place] [address] [place] [address] 03/16/2024 9:00 AM EDT Imaging [facility] 2nd Floor Cardiology, [place] [address] [place] [address] 03/17/2024 10:00 AM EDT Imaging [facility] 2nd Floor [facility] [place] [address] [place] [address] 04/17/2024 11:00 AM EDT Office Visit Cardiology, [facility] [address] [place] [address] Daylin Diaz PA-C [address] [place] [address] 06/14/2024 1:40 PM EDT Office Visit Family Medicine [address] [place] [phone] Danika Chairez PA-C [address] [place] [address] [place] [address] 06/19/2024 12:50 PM EDT Laboratory Laboratory [address] [place] [phone] [place], Lab [address] [place] [address] 06/26/2024 1:00 PM EDT Office Visit Cardiology, [facility] [address] [place] [address] [facility] Cardiology [place] [address] [place] [address] 07/03/2024 11:40 AM EDT Office Visit Nutrition & Weight Management, [facility] [address] [place] [address] Tami Garrett PA-C [address] [place] [address] 08/03/2024 1:00 PM EST Office Visit Orthopaedics [facility] [address] [place] [address] Herve Valera PA-C [address] [place] [address] 08/07/2024 1:00 PM EST Laboratory Laboratory [address] [place] [phone] [place], [address] [place] [address] 08/10/2024 1:00 PM EST Office Visit [facility] [place] [address] Herve Valera PA-C [address] [place] [address] 08/14/2024 2:00 PM EST Office Visit Hematology/Oncology [facility] [address] [place] [phone] Jeanette Arellano MD [address] [place] [address] 08/23/2024 2:55 PM EST Office Visit Urogynecology [facility] [address] [place] [address] Bay Ferreira MD [address] [place] [address] Nurse Zach Hernandez Shayna [address] [place] [address] 08/24/2024 1:00 PM EST Office Visit Orthopaedics [facility] 132 [facility] [place] [address] Herve Valera PA-C [address] [place] [address] 12/19/2024 1:40 PM EDT Office Visit Family Medicine [address] [place] [phone] Yoav Kong MD [address] [place] [address] [place] [address] 01/09/2025 10:30 AM EDT Office Visit Sleep Disorders Ctr [facility] 132 [facility] [place] [phone] Yara Beck CRNP 132 [facility] [place] [address] Scheduled Procedures Name Priority Associated Diagnoses Date/Ti me COLONOSCOPY FLEXIBLE PROXIMAL DIAGNOSTIC Recall Colon cancer screening Health Maintenance Due Date Last Done Comments Depression Screening 03/28/2022 03/28/2021 DTaP,Tdap,and Td Vaccines (2 - Td or Tdap) 06/14/2022 06/14/2012, 09/27/2005 COVID-19 Vaccine ( season) 2023 08/02/2023, 01/27/2022, 07/15/2021, Additional history exists CKD PHOS USE SMARTSET 53338 06/10/202405/22, 06/23/2022, 07/21/2021, Additional history exists GFR 07/08/2024 01/07/2024, 05/22, 10/16/2022, Additional history exists CKD HGB USE SMARTSET 19194 01/06/202501/06, 06/10/2023, 06/10/2023, Additional history exists Albumin/Creatinine [...] Documents on File Type Date Recorded Patient Machinist Class B Expl anation Advance Directives and Livin g Will 05/20/2016 ADVANCE DIRECTIVE Power of Rn Clinical 05/20/2016 POWER OF A TTORNEY * Full Code (Latest Code Status on File) Date Activated Date Inactivated Comments 08/14/2008 10:37 AM 08/14/2008 10:38 AM Care Teams Business Intelligence Director Relationship Specialty Start Date End Date Yoav Kong MD [address] [place] [address] [place] [address] PCP - General Family Medicine 04/09/14 documented as of this encounter
--- OUTSIDE RECORDS SUMMARY | 2024-06-16 04:11 | External Medical Summary | Summary of Care ---
Author Name Unknown Organization [facility] Address [address] [place] [address] Phone [phone] Care Team Providers Care Plugger Man Name Role Phone Yoav Kong MD Primary Care Provide r Reason for Referral * Evaluate & Treat - Unlimited Visits (Within 30 days (routine)) - Pending Review Specialty Diagnoses / Procedures Referred By Parrish t Referred To Contact Pharmacist / Pharmacy Diagnoses Statin intolerance Hyperlipidemia with target LDL less than 70 Daylin Diaz PA-C [address] [place] [address] Referral ID Status Reason Start Date Expiration Date Visits Requested Visits Authorized [id number] Pending Review Specialty Services Required 02/08/2024 99 99 Question Answer Referral Priority Within 30 days (routine) Where should this appointment be scheduled? [facility] Referring Provider Role: Specialist Specialty: Cardio Reason for Referral: Lipids Comments Pharmacist Medication Therapy Management: Minimum frequency patient should be seen in person for medication management: as appropriate per clinical condition and patient status By my signature, I understand that my patient Linette Trujillo will have her medication therapy managed by the [facility] Medication Therapy Disease Management Clinic ([facility]) per established policies, procedures, and protocols. I also certify that this referral may serve as an initiation of service for the management of drug therapy in the above noted patient. [facility] providers will be responsible for scheduling patient visits, obtaining appropriate laboratory studies, and adjusting medication management therapy per patient's need, in addition to those roles spelled out in the clinic policy, procedures, and drug management protocols. I understand that the service provided by the [facility] Clinic is voluntary and have informed patient that they can refuse the service at their discretion. I am aware that the [facility] Clinic will provide me with a copy of the patient encounter via my [employer]. I authorize the [facility] Clinic to carry out these activities on my behalf. I consider this program to be a necessary part of the patient's medical care. 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,Venous thrombosis TAKE [...] THE DAY 90 Tablet 3 3 Active Atenolol 25 MG Oral Tablet (Tenormin)Indications :HTN, goal below 140/90,Mitral valve disorder TAKE 1 TABLET BY MOUTH EVERY DAY 90 Tablet 3 3 Active Levothyroxine [...] kidney disease 07/29/2020 Overview: Per CKD protocol Confucianist or spiritual beliefs affecting medical care 05/25/2019 [...] encounter Miscellaneous Notes * Addendum Note - Zhanna Moss RPh - 02/08/2024 9:29 AM EDT Addended by: ZHANNA MOSS on: 02/08/2024 09:29 AM Modules accepted: Orders * Telephone Encounter - Zhanna Moss RPh - 02/08/2024 9:29 AM EDT Cardiology Appointment Request Please schedule the following visits: Referring provider: Daylin Diaz Patient to be scheduled for visit type: Dosage Adj In Person [[id number]] on Pharmacist Dept/Schedule Cardiology Shayna Hernandez [[id number]] & [facility] Cardio Shayna Hernandez [[id number]] Reason for visit: Lipid Co-Management Length of [...] Diaz PA-C Route to Cardiology Pharmacist Pool [phone]. *Do not send prescription at this time. Pre-cert will be completed prior to sending prescription* * Telephone Encounter - Clari Freitas OSA - 02/07/2024 1:28 PM EDT Person calling: Linette Mayo Relationship to patient: self Number to return call: [phone] Reason for call: MTM Cardio pharm referral/prior auth Pharmacy: n/a Provider Name:Joe Leonard afternoon, Patient returning call regarding referral for [...] be a candidate for PCSK9 inhib. Recommend [facility] referral for lipids to discuss alternative medications for her cholesterol if she is agreeable. documented in this encounter Plan of Treatment Upcoming Encounters Date Type Department Care Team (Late st Contact Info) Description 02/08/2024 11:45 AM EDT Imaging Radiology [address], [address] [place] [address] 03/06/2024 10:30 AM EDT Anticoagulation Pharmacy, [address] [place] [address] [place] [address] 03/16/2024 9:00 AM EDT Imaging [facility] 2nd Floor Cardiology, [place] [address] 03/17/2024 10:00 AM EDT Imaging [facility] 2nd Floor Cardiology, [address] [place] [address] 04/17/2024 11:00 AM EDT Office Visit Cardiology, [facility] [address] [place] [address] Daylin Diaz PA-C [address] [place] [address] 06/14/2024 1:40 PM EDT Office Visit Family Medicine [address] [place] [phone] Danika Chairez PA-C [address] [place] [address] [place] [address] 07/03/2024 11:40 AM EDT Office Visit Nutrition & Weight Management, [facility] [address] [place] [address] Tami Garrett PA-C [address] [place] [address] 08/03/2024 1:00 PM EST [facility] [place] [address] Herve Valera PA-C [address] [place] [address] 08/07/2024 1:00 PM EST Laboratory Laboratory [address] [place] [phone] [address] [place] [address] 08/10/2024 1:00 PM EST Office Visit [facility] [address] [facility] [place] [address] Herve Valera PA-C [address] [place] [address] 08/14/2024 2:00 PM EST Office Visit Hematology/Oncology [facility] 200 [facility] [place] [phone] Jeanette Arellano MD [address] [place] [address] 08/23/2024 2:55 PM EST Office Visit Urogynecology [facility] 132 [facility] [place] [address] Bay Ferreira MD [address] [place] [address] Nurse Zcah Hernandez [facility] 132 [facility] [place] [address] 08/24/2024 1:00 PM EST Office Visit Orthopaedics [facility] 132 [facility] [place] [address] Herve Valera PA-C [address] [place] [address] 12/19/2024 1:40 PM EDT Office Visit Family Medicine [address] [place] [phone] Yoav Kong MD [address] [place] [address] [place] [address] 01/09/2025 10:30 AM EDT Office Visit [facility] Disorders Ctr [facility] 132 [facility] [place] [phone] Yara Beck CRNP 132 [facility] [place] [address] Scheduled Procedures Name Priority Associated Diagnoses Date/Ti [...] 09/27/2005 COVID-19 Vaccine (2022- season) 2023 08/02/2023, 06/19/2022, 01/27/2022, Additional history exists CKD PHOS USE SMARTSET 65956 06/10/202405/22, 06/23/2022, 07/21/2021, Additional history exists GFR 07/08/2024 01/07/2024, 05/22, 10/16/2022, Additional history exists CKD HGB USE SMARTSET 85252 01/06/202501/06, 06/10/2023, 06/10/2023, Additional history exists Albumin/Creatinine [...] Documents on File Type Date Recorded Patient Buildings And Grounds Director Expl anation Advance Directives and Livin g Will 05/20/2016 ADVANCE DIRECTIVE Power of Safe And Vault Mechanic 05/20/2016 POWER OF A TTORNEY * Full Code (Latest Code Status on File) Date Activated Date Inactivated Comments 08/14/2008 10:37 AM 08/14/2008 10:38 AM Care Teams Plugger Man Relationship Specialty Start Date End Date Yoav Kong MD [address] [place] [address] [place] [address] PCP - General Family Medicine 04/09/14 documented as of this encounter
--- OUTSIDE RECORDS SUMMARY | 2024-06-16 04:11 | External Medical Summary | Summary of Care ---
Author Name Unknown Organization [facility] Address [address] [place] [address] Phone [phone] Care Team Providers Care Operations Section Manager Name Role Phone Yoav Kong MD Primary Care Provide r Reason for Visit * Reason Comments Dosage Adjustment In Person (Anticoag Cl inic) Encounter Details Date Type Department Care Team (Latest Contact Info) Description 02/07/2024 3:10 PM EDT Anticoagulation Pharmacy, [address] [place] [address] [place] [address] Anticoagulation management encounter*; History of pulmonary embolism; [...] as of this encounter (statuses as of 02/07/2024) Medications Medication Sig Dispensed Refills Start Date [...] of pulmonary embolism,Factor V Leiden (HCC),Anticoagulation management encounter,MCFP current use of anticoagulant therapy,Venous thrombosis TAKE [...] embolus (HCC),HTN, goal below 130/80,Factor V Leiden ([facility]) TAKE 1 TABLET BY MOUTH EVERY DAY [...] as of this encounter (statuses as of 02/07/2024) Active Problems Problem Noted Date Diagnosed Date [...] kidney disease 07/29/2020 Overview: Per CKD protocol Yarsani or spiritual beliefs affecting medical care 05/25/2019 Overview: No blood products Update of IMO term De Quervain's tenosynovitis 05/03/2019 Slac (scapholunate advanced collapse) of wrist, 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 Medication Therapy Disease Management - Anticoagulation Patient: Linette Osbornrock | : 1945 Subjective Patient-Reported Symptoms: Patient Findings Negatives: Signs/symptoms of thrombosis, Signs/symptoms of bleeding, Change in health, Change in alcohol use, Change in activity, Upcoming invasive procedure, Missed doses, Extra doses, Change in medications, Change in diet/appetite, Bruising Objective Current Warfarin Dose As of 02/07/2024 Warfarin maintenance plan: 3 mg (2 mg x 1.5) every Mon; 2 mg (2 mg x 1) all other days INR Result As of 02/07/2024 INR goal: 2.0-3.0 INR used for dosin.9 (02/07/2024) Assessment & Plan Warfarin Plan As of 02/07/2024 Full warfarin instructions: 3 mg every Mon; 2 mg all other days No change documented: Kamala Tijeirna RPh Next INR check: 03/06/2024 Repeat PT/INR in 4 week(s) Weekly dose: not changed Additional Dosing Information: Description Eats a green smoothie each day Kamala Tijerina RPh Clinical Pharmacist 02/07/2024, 3:09 PM documented in this encounter Plan of Treatment Upcoming Encounters Date Type Department Care Team (Late st Contact Info) Description 02/08/2024 11:45 AM EDT Imaging Radiology [facility] 1st [facility], [place] [address] [place] [address] 03/06/2024 10:30 AM EDT Anticoagulation Pharmacy, [address] [place] [address] [place] [address] 03/16/2024 9:00 AM EDT Imaging [facility] 2nd [facility] Cardiology, [place] [address] 03/17/2024 10:00 AM EDT Imaging [facility] 2nd Floor Cardiology, [place] [address] 04/17/2024 11:00 AM EDT Office Visit Cardiology, [facility] 132 [facility] [place] [address] Daylin Diaz PA-C [address] [place] [address] 06/14/2024 1:40 PM EDT Office Visit Family Medicine [address] [place] [phone] Danika Chairez PA-C [address] [place] [address] [place] [address] 07/03/2024 11:40 AM EDT Office Visit Nutrition & Weight Management, [facility] 132 [facility] [place] [address] Tami Garrett PA-C 132 [facility] [place] [address] 08/03/2024 1:00 PM EST Office Visit Orthopaedics [facility] 132 [facility] [place] [address] Herve Valera PA-C [address] [place] [address] 08/07/2024 1:00 PM EST Laboratory Laboratory [address] [place] [phone] [address] [place] [address] 08/10/2024 1:00 PM EST [facility] 132 [facility] [place] [address] Herve Valera PA-C [address] [place] [address] 08/14/2024 2:00 PM EST Office Visit Hematology/Oncology [facility] [place] [address] [place] [phone] Jeanette Arellano MD [address] [place] [address] 08/23/2024 2:55 PM EST Office Visit Urogynecology [facility] 132 [facility] [place] [address] Bay Ferreira MD 132 [facility] [place] [address] Nurse Zach Hernandez [facility] [place] [address] 08/24/2024 1:00 PM EST [facility] [address] [place] [address] Herve Valera PA-C [address] [place] [address] 12/19/2024 1:40 PM EDT Office Visit Family [address] [phone] Yoav Kong MD [address] [place] [address] [place] [address] 01/09/2025 10:30 AM EDT [facility] [address] [place] [phone] Yara Beck CRNP [address] [place] [address] Scheduled Procedures Name Priority Associated Diagnoses Date/Ti me COLONOSCOPY FLEXIBLE PROXIMAL DIAGNOSTIC Recall Colon cancer screening Health Maintenance Due Date Last Done Comments Depression Screening 03/28/2022 03/28/2021 DTaP,Tdap,and Td Vaccines (2 - Td or Tdap) 06/14/2022 06/14/2012, 09/27/2005 COVID-19 Vaccine (2022- season) 2023 08/02/2023, 06/19/2022, 01/27/2022, Additional history exists CKD PHOS USE SMARTSET 64201 06/10/202405/22, 06/23/2022, 07/21/2021, Additional history exists GFR 07/08/2024 01/07/2024, 05/22, 10/16/2022, Additional history exists CKD HGB USE SMARTSET 49797 01/06/202501/06, 06/10/2023, 06/10/2023, Additional history exists Albumin/Creatinine [...] Comments INR FINGERSTICK, POINT OF CARE STAT 02/07/2024 3:13 PM EDT History of pulmonary embolism Factor V Leiden (HCC) Anticoagulation management encounter documented in this encounter Results * INR FINGERSTICK, POINT OF CARE (02/07/2024 3:13 PM EDT) Fingerstick INR 1.9 INR 3:14 PM EDT [facility]00 Blood 02/07/2024 3:13 PM EDT 02/07/2024 3:14 PM EDT Narrative [facility]-00 - 02/07/2024 3:14 PM EDT Therapeutic ranges for non-operative patients: Prophylaxsis/treatment of DVT: (Range:2.0-3.0) Treatment of pulmonary embolism:(Range:2.0-3.0) Prevention of systemic embolism from: -tissue heart valves -acute myocardial infarction -valvular heart disease -atrial fibrillation (Range: 2.0-3.0) Mechanical prosthetic valves: (Range: 2.5-3.5) [facility] POINT OF CARE TEST DOCKED DEVICE UNSOLICITED RESULTS [facility] [place] [phone] [place] [address] [place] [address] documented in this encounter Visit Diagnoses Diagnosis Anticoagulation management encounter- Primary Encounter for therapeutic drug monitoring History of pulmonary embolism Personal history of pulmonary embolism Factor V Leiden (HCC) Primary hypercoagulable state documented in this encounter Advance Directives Documents on File Type Date Recorded Patient Court Worker Expl anation Advance Directives and Livin g Will 05/20/2016 ADVANCE DIRECTIVE Power of Retort Setter 05/20/2016 POWER OF A TTORNEY * Full Code (Latest Code Status on File) Date Activated Date Inactivated Comments 08/14/2008 10:37 AM 08/14/2008 10:38 AM Care Teams Operations Section Manager Relationship Specialty Start Date End Date Yoav Kong MD [address] [place] [address] [place] [address] PCP - General Family Medicine 04/09/14 documented as of this encounter
--- OUTSIDE RECORDS SUMMARY | 2024-06-16 04:11 | External Medical Summary | Summary of Care ---
Author Name Unknown Organization [facility] Address [address] [place] [address] Phone [phone] Care Team Providers Care Subway Operator Name Role Phone Yoav Kong MD Primary Care Provide r Reason for Visit * Reason Onset Date Comments Test Results 02/08/2024 Encounter Details Date Type Department Care Team (Late st Contact Info) Description 02/08/2024 Telephone Cardiology, [facility] [address] [place] [address] Mary Verde CRNP [address] [facility] [place] [address] Test Results Allergies Active Allergy Reactions Criticality [...] of pulmonary embolism,Factor V Leiden (HCC),Anticoagulation management encounter,longterm current use of anticoagulant therapy,Venous thrombosis TAKE [...] embolism 12/20/2011 Anticoagulation management encounter 12/14/2011 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 Please send metoprolol to [facility] in [place]. Advised pt to stop atenolol once she starts metoprolol. * Telephone Encounter - Brannon Shafer RN - 02/08/2024 9:32 AM EDT Called and left message for the patient to return call to the clinic min regards to the message from Mary WAGNER concerning her ZIO monitor report. * Telephone Encounter - Brannon Shafer RN - 02/08/2024 9:31 AM EDT ----- Message from Mary Verde sent at 02/07/2024 7:17 PM EDT ----- [...] Description 02/08/2024 11:45 AM EDT Imaging Radiology [facility] 1st [facility], [address] [place] [address] 03/06/2024 10:30 AM EDT Anticoagulation Pharmacy, [address] [place] [address] [place] [address] 03/16/2024 9:00 AM EDT Imaging [facility] 2nd Floor Cardiology, [place] 132 [facility] [place] [address] 03/17/2024 10:00 AM EDT Imaging [facility] 2nd Floor Cardiology, [place] 132 [facility] [place] [address] 04/17/2024 11:00 AM EDT Office Visit Cardiology, [facility] 132 [facility] [place] [address] Daylin Diaz PA-C 132 [facility] [place] [address] 06/14/2024 1:40 PM EDT Office Visit Family Medicine [address] [place] [address] Danika Chairez PA-C [address] [place] [address] [place] [address] 07/03/2024 11:40 AM EDT Office Visit Nutrition & Weight Management, [facility] 132 [facility] [place] [address] Tami Garrett PA-C [address] [place] [address] 08/03/2024 1:00 PM EST Office Visit Orthopaedics [facility] 132 [facility] [place] [address] Herve Valera PA-C [address] [place] [address] 08/07/2024 1:00 PM EST Laboratory Laboratory [address] [place] [phone] [place], [address] [place] [address] 08/10/2024 1:00 PM EST Office Visit Orthopaedics [facility] [place] [address] Herve Valera PA-C [address] [place] [address] 08/14/2024 2:00 PM EST Office Visit Hematology/Oncology [facility] [address] [place] [phone] Jeanette Arellano MD [address] [place] [address] 08/23/2024 2:55 PM EST Office Visit Urogynecology [facility] [place] [address] Bay Ferreira MD 132 [facility] [place] [address] HernandezN[address] Zach williamson [facility] [address] [place] [address] 08/24/2024 1:00 PM EST Office Visit Orthopaedics [facility] 132 [facility] [place] [address] Herve Valera PA-C [address] [place] [address] 12/19/2024 1:40 PM EDT Office Visit Family Medicine [address] [place] [phone] Yoav Kong MD [address] [place] [address] [place] [address] 01/09/2025 10:30 AM EDT Office Visit [facility] [address] [place] [phone] Yara Beck CRNP [address] [place] [address] Scheduled Procedures Name Priority Associated Diagnoses Date/Ti me COLONOSCOPY FLEXIBLE PROXIMAL DIAGNOSTIC Recall Colon cancer screening Health Maintenance Due Date Last Done Comments Depression Screening 03/28/2022 03/28/2021 DTaP,Tdap,and Td Vaccines (2 - Td or Tdap) 06/14/2022 06/14/2012, 09/27/2005 COVID-19 Vaccine ( season) 2023 08/02/2023, 06/19/2022, 01/27/2022, Additional history exists CKD PHOS USE SMARTSET 67331 06/10/202405/22, 06/23/2022, 07/21/2021, Additional history exists GFR 07/08/2024 01/07/2024, 05/22, 10/16/2022, Additional history exists CKD HGB USE SMARTSET 44494 01/06/202501/06, 06/10/2023, 06/10/2023, Additional history exists Albumin/Creatinine [...] Documents on File Type Date Recorded Patient Line Erector Apprentice Expl anation Advance Directives and Livin g Will 05/20/2016 ADVANCE DIRECTIVE Power of Computer Engineering Professor 05/20/2016 POWER OF A TTORNEY * Full Code (Latest Code Status on File) Date Activated Date Inactivated Comments 08/14/2008 10:37 AM 08/14/2008 10:38 AM Care Teams Subway Operator Relationship Specialty Start Date End Date Yoav Kong MD [address] [place] [address] [place] [address] PCP - General Family Medicine 04/09/14 documented as of this encounter
--- OUTSIDE RECORDS SUMMARY | 2024-06-16 04:11 | External Medical Summary | Summary of Care ---
Author Name Unknown Organization [facility] Address [address] [place] [address] Phone [phone] Care Team Providers Care Complaint Manager Name Role Phone Yoav Kong MD Primary Care Provide r Reason for Referral * Evaluate & Treat - Unlimited Visits (Within 30 days (routine)) - Pending Review Specialty Diagnoses / Procedures Referred By Parrish t Referred To Contact Pharmacist / Pharmacy Diagnoses Statin intolerance Hyperlipidemia with target LDL less than 70 Daylin Diaz PA-C [address] [place] [address] Referral ID Status Reason Start Date Expiration Date Visits Requested Visits Authorized [id number] Pending Review Specialty Services Required 02/08/2024 99 99 Question Answer Referral Priority Within 30 days (routine) Where should this appointment be scheduled? [facility] [address] Referring Provider Role: Specialist Specialty: Cardio Reason for Referral: Lipids Comments Pharmacist Medication Therapy Management: Minimum frequency patient should be seen in person for medication management: as appropriate per clinical condition and patient status By my signature, I understand that my patient Linette Trujillo will have her medication therapy managed by the [facility] [address] Medication Therapy [facility] ([facility]) per established policies, procedures, and protocols. I also certify that this referral may serve as an initiation of service for the management of drug therapy in the above noted patient. [facility] providers will be responsible for scheduling patient visits, obtaining appropriate laboratory studies, and adjusting medication management therapy per patient's need, in addition to those roles spelled out in the clinic policy, procedures, and drug management protocols. I understand that the service provided by the [facility] is voluntary and have informed patient that they can refuse the service at their discretion. I am aware that the [facility] will provide me with a copy of the patient encounter via my [employer]. I authorize the [facility] to carry out these activities on my behalf. I consider this program to be a necessary part of the patient's medical care. 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 * Addendum Note - Zhanna Moss [facility] - 02/08/2024 9:29 AM EDT Addended by: ZHANNA MOSS on: 02/08/2024 09:29 AM Modules accepted: Orders * Telephone Encounter - Zhanna Moss RPh - 02/08/2024 9:29 AM EDT Cardiology Appointment Request Please schedule the following visits: Referring provider: Daylin Diaz Patient to be scheduled for visit type: Dosage Adj In Person [[id number]] on Pharmacist Dept/Schedule Cardiology Shayna Hernandez [[id number]] & [facility] Clinic Cardio Shayna Hernandez [[id number]] Reason for visit: Lipid Co-Management Length of [...] Diaz PA-C Route to Cardiology Pharmacist Pool [id number]. *Do not send prescription at this time. Pre-cert will be completed prior to sending prescription* * Telephone Encounter - Clari Freitas OSA - 02/07/2024 1:28 PM EDT Person calling: Linette Mayo Relationship to patient: self Number to return call: [phone] Reason for call: MTM Cardio pharm referral/prior [...] Description 02/08/2024 11:45 AM EDT Imaging Radiology [facility] 1st [facility] 132 [facility] [place] [address] Arrived 03/06/2024 10:30 AM EDT Anticoagulation Pharmacy, [address] [place] [address] [place] [address] 03/16/2024 9:00 AM EDT Imaging [facility] 2nd Floor Cardiology, [place] 132 [facility] [place] [address] 03/17/2024 10:00 AM EDT Imaging [facility] 2nd Floor Cardiology, [place] [facility] [place] [address] 04/17/2024 11:00 AM EDT Office Visit Cardiology, [facility] 132 [facility] [place] [address] Daylin Diaz PA-C 132 [facility] [place] [address] 06/14/2024 1:40 PM EDT Office Visit Family Medicine [address] [place] [phone] Danika Chairez PA-C [address] [place] [address] [place] [address] 07/03/2024 11:40 AM EDT Office Visit Nutrition & Weight Management, [facility] 132 [facility] [place] [address] Tami Garrett PA-C 132 [facility] [place] [address] 08/03/2024 1:00 PM EST Office Visit Orthopaedics [facility] 132 [facility] [place] [address] Herve Valera PA-C [address] [place] [address] 08/07/2024 1:00 PM EST Laboratory Laboratory [address] [place] [phone] [address] [place] [address] 08/10/2024 1:00 PM EST Office Visit Orthopaedics [facility] 132 [facility] [place] [address] Herve Valera PA-C [address] [place] [address] 08/14/2024 2:00 PM EST Office Visit Hematology/Oncology [facility] 200 [facility] [place] [address] Jeanette Arellano MD 200 [facility] [place] [address] 08/23/2024 2:55 PM EST Office Visit Urogynecology [facility] 132 [facility] [place] [address] Bay Ferreira MD 132 [facility] [address] Nurse Zach Hernandez [facility] 132 [place] [address] 08/24/2024 1:00 PM EST Office Visit Orthopaedics [facility] 132 [facility] [place] [address] Herve Valera PA-C [address] [place] [address] 12/19/2024 1:40 PM EDT Office Visit Family Medicine [address] [place] [phone] Yoav Kong MD [address] [place] [address] [place] [address] 01/09/2025 10:30 AM EDT Office Visit Sleep Disorders Ctr [facility] [address] [place] [phone] Yara Beck CRNP [address] [place] [address] Scheduled Procedures Name Priority Associated Diagnoses Date/Ti [...] Additional history exists CKD PHOS USE SMARTSET 20954 06/10/202405/22, 06/23/2022, 07/21/2021, Additional history exists GFR 07/08/2024 01/07/2024, 05/22, 10/16/2022, Additional history exists CKD HGB USE SMARTSET 52240 01/06/202501/06, 06/10/2023, 06/10/2023, Additional history exists Albumin/Creatinine [...] Documents on File Type Date Recorded Patient Regional Marketing Manager Expl anation Advance Directives and Livin g Will 05/20/2016 ADVANCE DIRECTIVE Power of Life Scientists 05/20/2016 POWER OF A TTORNEY * Full Code (Latest Code Status on File) Date Activated Date Inactivated Comments 08/14/2008 10:37 AM 08/14/2008 10:38 AM Care Teams Complaint Manager Relationship Specialty Start Date End Date Yoav Kong MD [address] [place] [address] [place] [address] PCP - General Family Medicine 04/09/14 documented as of this encounter
--- OUTSIDE RECORDS SUMMARY | 2024-06-16 04:11 | External Medical Summary | Summary of Care ---
Author Name Unknown Organization [facility] Address [address] [place] [address] Phone [phone] Care Team Providers Care Fish And Wildlife Warden Name Role Phone Yoav Kong MD Primary Care Provide r Reason for Visit * Reason Onset Date Comments Test Results 02/08/2024 Encounter Details Date Type Department Care Team (Late st Contact Info) Description 02/08/2024 Telephone Cardiology, [facility] [address] [place] [address] Mary Verde CRNP [address] [facility] [place] [address] Test Results Allergies Active Allergy Reactions Criticality [...] of pulmonary embolism,Factor V Leiden (HCC),Anticoagulation management encounter,retirement current use of anticoagulant therapy,Venous thrombosis TAKE [...] kidney disease 07/29/2020 Overview: Per CKD protocol Gnosticism or spiritual beliefs affecting medical care 05/25/2019 [...] Description 02/08/2024 11:45 AM EDT Imaging Radiology [facility] 1st [facility], [address] [place] [address] 03/06/2024 10:30 AM EDT Anticoagulation Pharmacy, [address] [place] [address] [place] [address] 03/16/2024 9:00 AM EDT Imaging [facility] 2nd Floor Cardiology, [place] [address] 03/17/2024 10:00 AM EDT Imaging [facility] 2nd Floor Cardiology, [place] [address] 04/17/2024 11:00 AM EDT Office Visit Cardiology, [address] [place] [address] Daylin Diaz PA-C [address] [place] [address] 06/14/2024 1:40 PM EDT Office Visit Family Medicine [address] [place] [phone] Danika Chairez PA-C [address] [place] [address] [place] [address] 07/03/2024 11:40 AM EDT Office Visit Nutrition & Weight Management, [facility] [place] [address] Tami Garrett PA-C 132 [facility] [place] [address] 08/03/2024 1:00 PM EST Office Visit Orthopaedics [facility] 132 [facility] [place] [address] Herve Valera PA-C [address] [place] [address] 08/07/2024 1:00 PM EST Laboratory Laboratory [address] [place] [phone] [address] [place] [address] 08/10/2024 1:00 PM EST Office Visit Orthopaedics [facility] [place] [address] Herve Valera PA-C [address] [place] [address] 08/14/2024 2:00 PM EST Office Visit Hematology/Oncology [facility] [place] [address] [place] [address] Jeanette Arellano MD [address] [place] [address] 08/23/2024 2:55 PM EST Office Visit Urogynecology Nico Hernandez 132 [facility] [place] [address] Bay Ferreira MD [address] [place] [address] Nurse Zach Hernandez [address] [place] [address] 08/24/2024 1:00 PM EST Office Visit Orthopaedics Nico Hernandez [place] [address] [place] [address] Herve Valera PA-C [address] [place] [address] 12/19/2024 1:40 PM EDT Office Visit Family Medicine [address] [phone] Yoav Kong MD [address] [place] [address] [place] [address] 01/09/2025 10:30 AM EDT Office Visit Sleep Disorders Ctr Shayna Hernandez [place] [address] [place] [phone] Yara Beck CRNP [address] [place] [address] Scheduled Procedures Name Priority Associated Diagnoses Date/Ti me COLONOSCOPY FLEXIBLE PROXIMAL DIAGNOSTIC Recall Colon cancer screening Health Maintenance Due Date Last Done Comments Depression Screening 03/28/2022 03/28/2021 DTaP,Tdap,and Td Vaccines (2 - Td or Tdap) 06/14/2022 06/14/2012, 09/27/2005 COVID-19 Vaccine (2022- season) 2023 08/02/2023, 06/19/2022, 01/27/2022, Additional history exists CKD PHOS USE SMARTSET 48404 06/10/202405/22, 06/23/2022, 07/21/2021, Additional history exists GFR 07/08/2024 01/07/2024, 05/22, 10/16/2022, Additional history exists CKD HGB USE SMARTSET 46956 01/06/202501/06, 06/10/2023, 06/10/2023, Additional history exists Albumin/Creatinine [...] Documents on File Type Date Recorded Patient Bond Underwriter Expl anation Advance Directives and Karrie mata Will 05/20/2016 ADVANCE DIRECTIVE Power of Food Service Technician 05/20/2016 POWER OF A TTORNEY * Full Code (Latest Code Status on File) Date Activated Date Inactivated Comments 08/14/2008 10:37 AM 08/14/2008 10:38 AM Care Teams Fish And Wildlife Warden Relationship Specialty Start Date End Date Yoav Kong MD [address] [place] [address] [place] [address] PCP - General Family Medicine 04/09/14 documented as of this encounter
--- OUTSIDE RECORDS SUMMARY | 2024-06-16 04:12 | External Medical Summary | Summary of Care ---
Author Name Unknown Organization [facility] Address [address] [place] [address] Phone [phone] Care Team Providers Care Systems Software Developer Name Role Phone Yoav Kong MD Primary Care Provide r Reason for Visit * Reason Onset Date Comments Test Results 02/07/2024 Encounter Details Date Type Department Care Team (Late st Contact Info) Description 02/07/2024 Telephone Cardiology, [facility] [address] [place] [address] Daylin Diaz, DEYVI [address] [place] [address] Test Results Allergies Active Allergy Reactions Criticality [...] pulmonary embolism,Factor V Leiden (HCC),Anticoagulation management encounter,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,Venous thrombosis [...] embolus (HCC),HTN, goal below 130/80,Factor V Leiden ([facility]) TAKE 1 TABLET BY MOUTH EVERY [...] kidney disease 07/29/2020 Overview: Per CKD protocol Oriental Orthodox or spiritual beliefs affecting medical care 05/25/2019 [...] embolism 12/20/2011 Anticoagulation management encounter 12/14/2011 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 . Referral for pharmacist for: Pharmacist Co-Management Diagnosis (including ICD-10): Hyperlipidemia: E78.5 Medication(s) Tried/Failed/Contraindicated: statin See corresponding visit note(s) for additional supporting clinical information. Office Information: Prescriber: Daylin Diaz PA-C Route to Cardiology Pharmacist Pool [id number]. *Do not send prescription at this time. Pre-cert will be completed prior to sending prescription* * Telephone Encounter - Clari Freitas OSA - 02/07/2024 1:28 PM EDT Person calling: Linette R Relationship to patient: self Number to return call: [phone] Reason for call: MTM Cardio pharm referral/prior [...] be a candidate for PCSK9 inhib. Recommend [facility] referral for lipids to discuss alternative medications for her cholesterol if she is agreeable. documented in this encounter Plan of Treatment Upcoming Encounters Date Type Department Care Team (Late st Contact Info) Description 02/07/2024 3:10 PM EDT Anticoagulation Pharmacy, [address] [place] [address] [place] [address] 02/08/2024 11:45 AM EDT Imaging Radiology [facility]st [facility] 132 [facility] [place] [address] 03/16/2024 9:00 AM EDT Imaging [facility] 2nd Floor Cardiology, [address] [place] [address] 03/17/2024 10:00 AM EDT Imaging [facility] 2nd Floor Cardiology, [place] 132 [facility] [place] [address] 04/17/2024 11:00 AM EDT Office Visit Cardiology, [facility] 132 [facility] [place] [address] Daylin Diaz PA-C [address] [place] [address] 06/14/2024 1:40 PM EDT Office Visit Family Medicine [address] [place] [address] Danika Chairez PA-C [address] [place] [address] [place] [address] 07/03/2024 11:40 AM EDT Office Visit Nutrition & Weight Management, [facility] [place] [address] Tami Garrett PA-C [address] [place] [address] 08/03/2024 1:00 PM EST Office Visit Orthopaedics [facility] [place] [address] Herve Valera PA-C [address] [place] [address] 08/07/2024 1:00 PM EST Laboratory Laboratory [address] [place] [phone] [address] [place] [address] 08/10/2024 1:00 PM EST Office Visit Orthopaedics [facility] [place] [address] Herve Valera PA-C [address] [place] [address] 08/14/2024 2:00 PM EST Office Visit Hematology/Oncology [facility] [place] [address] Jeanette Arellano MD 200 [place] [address] 08/23/2024 2:55 PM EST Office Visit Urogynecology [facility] 132 [facility] [place] [address] Bay Ferreira MD 132 [facility] [place] [address] Nurse Zach Hernandez [address] [place] [address] 08/24/2024 1:00 PM EST Office Visit Orthopaedics [facility] [address] [place] [address] Herve Valera PA-C [address] [place] [address] 12/19/2024 1:40 PM EDT Office Visit Family Medicine [address] [place] [phone] Yoav Kong MD [address] [place] [address] [place] [address] 01/09/2025 10:30 AM EDT Office Visit Sleep Disorders Ctr [facility] [address] [place] [phone] Yara Beck CRNP [address] [place] [address] Scheduled Procedures Name Priority Associated Diagnoses Date/Ti me COLONOSCOPY FLEXIBLE PROXIMAL DIAGNOSTIC Recall Colon cancer screening Health Maintenance Due Date Last Done Comments Depression Screening 03/28/2022 03/28/2021 DTaP,Tdap,and Td Vaccines (2 - Td or Tdap) 06/14/2022 06/14/2012, 09/27/2005 COVID-19 Vaccine ( season) 2023 08/02/2023, 06/19/2022, 01/27/2022, Additional history exists CKD PHOS USE SMARTSET 27214 06/10/202405/22, 06/23/2022, 07/21/2021, Additional history exists GFR 07/08/2024 01/07/2024, 05/22, 10/16/2022, Additional history exists CKD HGB USE SMARTSET 69727 01/06/202501/06, 06/10/2023, 06/10/2023, Additional history exists Albumin/Creatinine [...] Documents on File Type Date Recorded Patient Tutorial Laboratory Supervisor Expl anation Advance Directives and Livin g Will 05/20/2016 ADVANCE DIRECTIVE Power of Store Planner 05/20/2016 POWER OF A TTORNEY * Full Code (Latest Code Status on File) Date Activated Date Inactivated Comments 08/14/2008 10:37 AM 08/14/2008 10:38 AM Care Teams Systems Software Developer Relationship Specialty Start Date End Date Yoav Kong MD [address] [place] [address] [place] [address] PCP - General Family Medicine 04/09/14 documented as of this encounter
--- OUTSIDE RECORDS SUMMARY | 2024-06-16 04:12 | External Medical Summary | Summary of Care ---
Author Name Unknown Organization [facility] Address [address] [place] [address] Phone [phone] Care Team Providers Care Regional Manager Name Role Phone Yoav Kong MD Primary Care Provide r Reason for Visit * Reason Onset Date Comments Appointment 02/07/2024 Encounter Details Date Type Department Care Team (Late st Contact Info) Description 02/07/2024 Telephone Radiology [address] 132 [facility] [place] [address] Leah Saenz, RT (M) Appointment Allergies Active Allergy Reactions Criticality Noted [...] of pulmonary embolism,Factor V Leiden (HCC),Anticoagulation management encounter,[facility] current use of anticoagulant therapy,Venous [...] kidney disease 07/29/2020 Overview: Per CKD protocol Church or spiritual beliefs affecting medical care 05/25/2019 [...] pulmonary embolism 12/20/2011 Anticoagulation management encounter 12/14/2011 rn long term care current use of anticoagulant therapy 0 12/14/2011 [...] encounter Miscellaneous Notes * Telephone Encounter - Leah Saenz RT (M) - 02/07/2024 2:13 PM EDT Name: Linette Trujillo Do you have any of the following: Pacemaker, stents, heart valves, aneurysm clips? No Have you ever worked with metal or have you ever gotten metal in your eyes? No Have you had a colonoscopy in the last 30 days? No On dialysis? No Do you have any dermals or body piercing's? No or ? N/A Do you wear an insulin pump or diabetic monitor?No RT Mamadou (M) documented in this encounter Plan of Treatment Upcoming Encounters Date Type Department Care Team (Late st Contact Info) Description 02/07/2024 3:10 PM EDT Anticoagulation Pharmacy, [address] [place] [address] [place] [address] 02/08/2024 11:45 AM EDT Imaging Radiology [facility] 1st [facility], [address] [place] [address] 03/16/2024 9:00 AM EDT Imaging [facility] 2nd Floor Cardiology, [address] [place] [address] 03/17/2024 10:00 AM EDT Imaging [facility] 2nd Floor Cardiology, [place] 132 [facility] [place] [address] 04/17/2024 11:00 AM EDT Office Visit Cardiology, [address] [place] [address] Daylin Diaz PA-C 132 [facility] [place] [address] 06/14/2024 1:40 PM EDT Office Visit Family Medicine [address] [place] [phone] Danika Chairez PA-C [address] [place] [address] [place] [address] 07/03/2024 11:40 AM EDT Office Visit Nutrition & Weight Management, [address] [place] [address] Tami Garrett PA-C [address] [place] [address] 08/03/2024 1:00 PM EST Office Visit Orthopaedics [facility] [place] [address] Herve Valera PA-C [address] [place] [address] 08/07/2024 1:00 PM EST Laboratory Laboratory [address] [place] [phone] [address] [place] [address] 08/10/2024 1:00 PM EST Office Visit Orthopaedics [facility] [place] [address] Herve Valera PA-C [address] [place] [address] 08/14/2024 2:00 PM EST Office Visit Hematology/Oncology [facility] [address] [place] [phone] Jeanette Arellano MD [address] [place] [address] 08/23/2024 2:55 PM EST Office Visit Urogynecology [facility] [address] [place] [address] Bay Ferreira MD [address] [place] [address] Nurse Zach Hernandez Shayna [address] [place] [address] 08/24/2024 1:00 PM EST Office Visit Orthopaedics [facility] 132 [facility] [place] [address] Herve Valera PA-C [address] [place] [address] 12/19/2024 1:40 PM EDT Office Visit Family Medicine [address] [place] [phone] Yoav Kong MD [address] [place] [address] [place] [address] 01/09/2025 10:30 AM EDT Office Visit Sleep Disorders Ctr [facility] 132 [facility] [place] [phone] Yara Beck CRNP 132 [facility] [place] [address] Scheduled Procedures Name Priority Associated Diagnoses Date/Ti me COLONOSCOPY FLEXIBLE PROXIMAL DIAGNOSTIC Recall Colon cancer screening Health Maintenance Due Date Last Done Comments Depression Screening 03/28/2022 03/28/2021 DTaP,Tdap,and Td Vaccines (2 - Td or Tdap) 06/14/2022 06/14/2012, 09/27/2005 COVID-19 Vaccine ( season) 2023 08/02/2023, 06/19/2022, 01/27/2022, Additional history exists CKD PHOS USE SMARTSET 54299 06/10/202405/22, 06/23/2022, 07/21/2021, Additional history exists GFR 07/08/2024 01/07/2024, 05/22, 10/16/2022, Additional history exists CKD HGB USE SMARTSET 73928 01/06/202501/06, 06/10/2023, 06/10/2023, Additional history exists Albumin/Creatinine [...] Documents on File Type Date Recorded Patient Analytics Leader Expl anation Advance Directives and Livin g Will 05/20/2016 ADVANCE DIRECTIVE Power of Insurance Job Titles 05/20/2016 POWER OF A TTORNEY * Full Code (Latest Code Status on File) Date Activated Date Inactivated Comments 08/14/2008 10:37 AM 08/14/2008 10:38 AM Care Teams Regional Manager Relationship Specialty Start Date End Date Yoav Kong MD [address] [place] [address] [place] [address] PCP - General Family Medicine 04/09/14 documented as of this encounter
--- OUTSIDE RECORDS SUMMARY | 2024-06-16 04:12 | External Medical Summary ---
Author Name Unknown Address Unknown Organization : Laboratory Report Ordering Provider Test Date Status PIERO RIVERA 02/07/2024 15:13:09 Final Therapeutic ranges for non-o perative patients:
Prophylaxsis/treatment of DVT: (Range:2.0-3.0)
Treatment of pulmonary embolism:(Range:2.0-3.0)
Prevention of systemic embolism from:
-tissue heart valves
-acute myocardial infarction
-valvular heart disease
-atrial fibrillation
(Range: 2.0-3.0)
Mechanical prosthetic valves: (Range: 2.5-3.5) Observation Date Value Abnormality Reference (Units ) Status INR in Capillary blood by Coagulation assay 02/07/2024 15:13:09 1.9 (INR) Final Performing Location
--- OUTSIDE RECORDS SUMMARY | 2024-06-16 04:12 | External Medical Summary | Summary of Care ---
Author Name Unknown Organization [facility] Address [address] [facility] [place] [address] Phone [phone] Care Team Providers Care Pinner [employer] Name Role Phone Yoav Kong MD Primary Care Provide r Reason for Visit * Reason Comments EMG Encounter Details Date Type Department Care Team (Late st Contact Info) Description 01/13/2024 2:05 PM EDT NeuroDiagnostic Study Neurophysiology [facility] [address] [facility] [place] [phone] Donald Sevilla, DO [address] [place] [address] Allergies Active Allergy Reactions Criticality Noted Date [...] as of this encounter (statuses as of 01/28/2024) Medications Medication Sig Dispensed Refills Start Date End Date Status B-6 100 MG PO TABS 200mg daily 0 Activ e WOMENS MULTIVITAMIN PLUS PO TABS one daily 0 Active Magnesium Oxide 400 MG Capsule Take 1 Capsule by mouth in the morning. 0 5 Active Calcium Glycerophosphate 340 (65-50) MG (CA-P) TABS Take by mouth 1 Tablet daily . 0 Active NATURAL SUPPLEMENT Take by mouth daily. Whole daniela seeds, 1 scoop daily 0 Active latanoprost (XALATAN) 0.005 % ophthalmic solution Instill 1 Drop into both eyes at bedtime. 0 0 Active Loratadine 10 MG Oral Capsule Take 1 Capsule by mouth in the morning. 0 Active Polyethyl Glycol-Propyl Glycol 0.4-0.3 % Ophthalmic Solution Instill into eye as needed for Dry eyes. 0 Active CPAP once. 0 Active B-12 1000 MCG Oral Capsule Take 1 Capsule by mouth once a day on Wednesday, Wednesday, and Wednesday only. 0 Active Vitamin D3 25 MCG (1000 UT) Oral Tablet (Vitamin D3) Take 1 Tablet by mouth in the morning. 0 2 Active Biotin 1000 MCG Oral Tablet Chewable Take by mouth 5,000 mcg daily . 0 2 Active Folic Acid 800 MCG Oral Tablet Take 1 Tablet by mouth in the morning. 0 2 Active high fiber LIQD Take by mouth. High Fiber packet once a day 0 Active Warfarin Sodium 2 MG Oral Tablet (Coumadin)Indication s:History of pulmonary embolism,Factor V Leiden (HCC),Anticoagulatio n management encounter,[facility] current use of anticoagulant therapy,Venous thrombosis TAKE [...] 3 Active Atenolol 25 MG Oral Tablet (Tenormin)Indication [...] goal below 130/80,Factor V Leiden ([facility]) TAKE 1 TABLET BY MOUTH EVERY [...] THE MORNING 90 Tablet 3 4 Active Wegovy 0.25 MG/0.5ML Subcutaneous Solution Auto-injector (Semaglutide-Weight Management)Indicatio ns:Morbid obesity due to excess calories (HCC) Inject 0.25 mg under the skin once a week. 2 mL 0 4 024 Discontin ued(Patie nt preferenc e/discont inuation) Hospital, Clinic, or Other Facility Administered Medication Ordered Dose Route Frequency Start Date End Date Status Hylan (Synvisc) inj 16 mgIndications:Primary osteoarthritis of right knee 16 mg IX QWEEK 07/08/2023 Active documented as of this encounter (statuses as of 01/28/2024) Active Problems Problem Noted Date Diagnosed Date [...] kidney disease 07/29/2020 Overview: Per CKD protocol Islam or spiritual beliefs affecting medical care 05/25/2019 [...] as of this encounter (statuses as of 01/28/2024) Resolved Problems Problem Noted Date Diagnosed Date [...] as of this encounter (statuses as of 01/28/2024) Immunizations Name Administration Dates Next Due COVID-19 [...] as of this encounter Progress Notes * Donald Sevilla, - 01/13/2024 2:45 PM EDT [facility] Neurophysiology Laboratory Electromyography Report Name: Linette Trujillo Date of : 1945 (78 year old) Sex: female Tech: Fantasma Naimaruiz Referring Physician: Fabian Bhagat DO Examining Physician: Donald Sevilla DO Examination Date: 01/13/2024 Ht Readings from Last 1 Encounters: 01/07/24 1.562 m (5' 1.5") Wt Readings from Last 1 Encounters: 01/07/24 99.3 kg (219 lb) Impression: Abnormal study, due to nonspecific finding. 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 Can not exclude technical factor due to body habitus. A right lateral femoral cutaneous neuropathy is not routinely tested on nerve conduction studiesand is largely a clinical diagnosis. Clinical correlation recommended. There is no electrophysiological evidence of a plexopathy or lumbosacral radiculopathy in the right lower extremity. History and Physical examination: A 78-year-old female with numbness to the right lateral thigh. She also has low back pain predominantly on the right side. Sensation is intact to light touch. EMG/NCS performed for evaluation of radiculopathy. Nerve Conduction Studies Examination Findings: Nerve conduction studies were performed in the right lower extremity and in select nerves in the left lower extremity and right upper extremity. The bilateral sural sensory nerve responses were absent. The radial sensory nerve study showed a normal peak latency, normal amplitude, and normal conduction velocity. The peroneal motor nerve study showed a normal distal latencies, normal amplitude, andnormal conduction velocity. Tibial motor nerve study showed a normal distal latency, and reduced amplitude at the ankle which may be technical due to body habitus. Please see the attached document for raw data or the scanned document in FolderBoy. Reference values are from the [facility] normative data guidelines that are attached at the end ofthis document. Electromyography Examination Findings: Needle examination was performed with a disposable concentric needle electrode in selected muscles of the right lower extremity, as recorded in the tables. No abnormal spontaenous activity was seen. The motor unit action potentials in the muscles tested demonstrated normal size, duration, and recruitment. Please see the attached document for raw data or the scanned document in EPIC. The study was done with a concentric needle examination. Donald Sevilla DO documented in this encounter Plan of Treatment Upcoming Encounters Date Type Department Care Team (Late st Contact Info) Description 02/03/2024 3:30 PM EDT Cardiac Studies Cardiac Studies, [address] [place] [address] 02/07/2024 3:10 PM EDT Anticoagulation Pharmacy, [address] [place] [address] [place] [address] 02/08/2024 11:45 AM EDT Imaging Radiology [facility] [address] [place] [address] 03/16/2024 9:00 AM EDT Imaging [facility] 2nd Floor Cardiology, [address] [place] [address] 03/17/2024 10:00 AM EDT Imaging [facility] 2nd Floor Cardiology, [address] [place] [address] 04/17/2024 11:00 AM EDT Office Visit Cardiology, [address] [place] [address] Daylin Diaz PA-C [address] [place] [address] [place] [address] 06/14/2024 1:40 PM EDT Office Visit Family Medicine [address] [place] [phone] Danika Chairez PA-C [address] [place] [address] [place] [address] 07/03/2024 11:40 AM EDT Office Visit Nutrition & Weight Management, [facility] [place] [address] Tami Garrett PA-C [address] [place] [address] 08/03/2024 1:00 PM EST Office Visit Orthopaedics [facility] [place] [address] Herve Valera PA-C [address] [place] [address] 08/07/2024 1:00 PM EST Laboratory Laboratory [address] [place] [phone] [place], [address] [place] [address] 08/10/2024 1:00 PM EST Office Visit Orthopaedics [facility] [place] [address] Herve Valera PA-C [address] [place] [address] 08/14/2024 2:00 PM EST Office Visit Hematology/Oncology [facility] [address] [place] [phone] Jeanette Arellano MD [address] [place] [address] 08/23/2024 2:55 PM EST Office Visit Urogynecology [facility] [address] [place] [address] Bay Ferreira MD [address] [place] [address] Nurse Zach Hernandez [facility] [address] [place] [address] 08/24/2024 1:00 PM EST Office Visit Orthopaedics [facility] 132 [facility] [place] [address] Herve Valera PA-C [address] [place] [address] 12/19/2024 1:40 PM EDT Office Visit Family Medicine [address] [place] [phone] Yoav Kong MD [address] [place] [address] [place] [address] 01/09/2025 10:30 AM EDT Office Visit [facility] Disorders C[facility] 132 [facility] [place] [phone] Yara Beck CRNP [facility] [place] [address] Scheduled Procedures Name Priority Associated Diagnoses Date/Ti me COLONOSCOPY FLEXIBLE PROXIMAL DIAGNOSTIC Recall Colon cancer screening Health Maintenance Due Date Last Done Comments Depression Screening 03/28/2022 03/28/2021 DTaP,Tdap,and Td Vaccines (2 - Td or Tdap) 06/14/2022 06/14/2012, 09/27/2005 CKD PHOS USE SMARTSET 88423 06/10/202405/22, 06/23/2022, 07/21/2021, Additional history exists GFR 07/08/2024 01/07/2024, 05/22, 10/16/2022, Additional history exists CKD HGB USE SMARTSET 85233 01/06/202501/06, 06/10/2023, 06/10/2023, Additional history exists Albumin/Creatinine Ratio 01/18/2025 024, 12/11/2022, 12/16/2021, Additional history exists TSH 01/18/2025 01/19/2024, 12/19, 06/10/2023, Additional history exists DXA Scan 06/11/2027 06/11/2020, 10/22, 07/04/2009, Additional history exists Hepatitis C Screening Completed 01/05/2012 Pneumococcal Vaccine: 65+ Years Completed 10/15/2014, 04/24/2009, 06/11/1999 Zoster Vaccines Completed 04/07/2020, 08/20, 05/03/2009 Influenza Vaccine (FLU shot) Completed , 06/06/2022, 06/10/2021, Additional history exists COVID-19 Vaccine Completed 08/02/2023, , 01/27/2022, Additional history exists GARDASIL-HPV IMMUNIZATION SERIES Aged [...] as of this encounter Visit Diagnoses Diagnosis Numbness and tingling of right leg [R20.0, R20.2]- Primary Disturbance of skin sensation documented in this encounter Advance Directives Documents on File Type Date Recorded Patient Medical Care Manager Expl anation Advance Directives and Livin g Will 05/20/2016 ADVANCE DIRECTIVE Power of Gas Technician 05/20/2016 POWER OF A TTORNEY Latest Code Status on File Code Status Date Activated Date Inactivated Comments Full Code 08/14/2008 10:37 AM 08/14/2008 10:38 AM Care Teams [employer] Relationship Specialty Start Date End Date Yoav Kong MD [address] [place] [address] [place] [phone] PCP - General Family Medicine 04/09/14 documented as of this encounter
--- OUTSIDE RECORDS SUMMARY | 2024-06-16 04:12 | External Medical Summary | Summary of Care ---
Author Name Unknown Organization [facility] Address [address] [place] [address] Phone [phone] Care Team Providers Care Pig Farm Manager Name Role Phone Yoav Kong MD Primary Care Provide r Reason for Visit * Reason Onset Date Comments Test Results 02/07/2024 Encounter Details Date Type Department Care Team (Late st Contact Info) Description 02/07/2024 Telephone Cardiology, [facility] [address] [place] [address] aDylin Diaz, DEYVI [address] [place] [address] Test Results Allergies Active Allergy Reactions Criticality [...] of pulmonary embolism,Factor V Leiden (HCC),Anticoagulation management encounter,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 Triglycerides improving. Continue Zetia. History of statin intolerance. She may be a candidate for PCSK9 inhib. Recommend [facility] referral for lipids to discuss alternative medications for her cholesterol if she is agreeable. documented in this encounter Plan of Treatment Upcoming Encounters Date Type Department Care Team (Late st Contact Info) Description 02/07/2024 3:10 PM EDT Anticoagulation Pharmacy, [address] [place] [address] [place] [address] 02/08/2024 11:45 AM EDT Imaging Radiology [facility] 1st Floor, [place] [address] [place] [address] 03/16/2024 9:00 AM EDT Imaging [facility] 2nd Floor Cardiology, [place] [address] [place] [address] 03/17/2024 10:00 AM EDT Imaging [facility] 2nd Floor Cardiology, [place] [address] [place] [address] 04/17/2024 11:00 AM EDT Office Visit Cardiology, [facility] [address] [place] [address] Daylin Diaz PA-C 132 [place] [address] 06/14/2024 1:40 PM EDT Office Visit Family Medicine [address] [place] [phone] Danika Chairez PA-C [address] [place] [address] [place] [address] 07/03/2024 11:40 AM EDT Office Visit Nutrition & Weight Management, [facility] 132 [facility] [place] [address] Tami Garrett PA-C 132 [facility] [place] [address] 08/03/2024 1:00 PM EST Office Visit Orthopaedics [facility] 132 [facility] [place] [address] Herve Valera PA-C [address] [place] [address] 08/07/2024 1:00 PM EST Laboratory Laboratory [address] [place] [phone] [address] [place] [address] 08/10/2024 1:00 PM EST Office Visit Orthopaedics [facility] 132 [facility] [place] [address] Herve Valera PA-C [address] [place] [address] 08/14/2024 2:00 PM EST Office Visit Hematology/Oncology [facility] [place] [address] [place] [phone] Jeanette Arellano MD [address] [place] [phone] 08/23/2024 2:55 PM EST Office Visit Urogynecology [facility] 132 [place] [address] Bay Ferreira MD 132 [facility] [place] [address] Nurse Zach Hernandez [facility] [place] [address] 08/24/2024 1:00 PM EST [facility] 132 [facility] [place] [address] Herve Valera PA-C [address] [place] [address] 12/19/2024 1:40 PM EDT Office Visit [address] [place] [phone] Yoav Kong MD [address] [place] [address] [place] [address] 01/09/2025 10:30 AM EDT [facility] 132 [facility] [place] [phone] Yara Beck CRNP 132 [facility] [place] [address] Scheduled Procedures Name Priority Associated Diagnoses Date/Ti me COLONOSCOPY FLEXIBLE PROXIMAL DIAGNOSTIC Recall Colon cancer screening Health Maintenance Due Date Last Done Comments Depression Screening 03/28/2022 03/28/2021 DTaP,Tdap,and Td Vaccines (2 - Td or Tdap) 06/14/2022 06/14/2012, 09/27/2005 COVID-19 Vaccine ( season) 2023 08/02/2023, 06/19/2022, 01/27/2022, Additional history exists CKD PHOS USE SMARTSET 08966 06/10/202405/22, 06/23/2022, 07/21/2021, Additional history exists GFR 07/08/2024 01/07/2024, 05/22, 10/16/2022, Additional history exists CKD HGB USE SMARTSET 44515 01/06/202501/06, 06/10/2023, 06/10/2023, Additional history exists Albumin/Creatinine [...] Documents on File Type Date Recorded Patient Head Batcher Expl anation Advance Directives and Livin g Will 05/20/2016 ADVANCE DIRECTIVE Power of Parachute Marker 05/20/2016 POWER OF A TTORNEY * Full Code (Latest Code Status on File) Date Activated Date Inactivated Comments 08/14/2008 10:37 AM 08/14/2008 10:38 AM Care Teams Pig Farm Manager Relationship Specialty Start Date End Date Yoav Kong MD [address] [place] [address] [place] [address] PCP - General Family Medicine 04/09/14 documented as of this encounter
--- OUTSIDE RECORDS SUMMARY | 2024-06-16 04:12 | External Medical Summary | Summary of Care ---
Author Name Unknown Organization [facility] Address [address] [facility] [place] [address] Phone [phone] Care Team Providers Care Storage Manager Name Role Phone Yoav Kong MD Primary Care Provide r Reason for Visit * Reason Comments Follow Up Right knee pain Encounter Details Date Type Department Care Team (Late st Contact Info) Description 01/27/2024 10:30 AM EDT Office Visit Orthopaedics [facility] [address] [facility] [place] [address] Herve Valera PA-C [address] [place] [address] Primary osteoarthritis of right knee*; Chronic pain of right knee Allergies Active Allergy Reactions Criticality Noted Date [...] as of this encounter (statuses as of 01/27/2024) Medications Medication Sig Dispensed Refills Start Date [...] of pulmonary embolism,Factor V Leiden (HCC),Anticoagulation management encounter,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 Do all this for 10 days. 30 Capsule 0 4 01/30/20 24 Active Mupirocin 2 % External Ointment (Bactroban)Indication s:Cellulitis and abscess of neck Apply topically to affected area 3 times a day for 14 days. To affected area for up to 14 days. 22 g 1 4 02/03/20 24 Active LORazepam 0.5 MG Oral Tablet (Ativan) Take 1 tablet by mouth 45 minutes prior to scheduled MRI. Can repeat 15 minutes prior if additional anxiety relief is required. 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 Chief Complaint Patient presents with Follow Up Right knee pain HPI: Linette is a very pleasant 78-year-old female who presents to the clinic today for her 3rd Synvisc injection for the right knee of her current series for treatment of her primary osteoarthritis and chronic pain. Review of patient's allergies indicates: Allergen Reactions [...] 1 Tablet by mouth in the morning. Biotin 1000 MCG Oral Tablet Chewable Take by mouth 5,000 mcg daily . Folic Acid 800 MCG Oral Tablet Take [...] MEAL OF THE DAY 90 Tablet 3 Atenolol 25 MG Oral Tablet (Tenormin) TAKE 1 TABLET BY MOUTH EVERY DAY 90 Tablet 3 Levothyroxine Sodium 50 [...] DAY IN THE MORNING 90 Tablet 3 Cephalexin 500 MG Oral Capsule (Keflex) Take 1 Capsule by mouth in the morning and 1 Capsule at noon and 1 Capsule before bedtime. Do all this for 10 days. 30 Capsule 0 Mupirocin 2 % External Ointment (Bactroban) Apply topically to affected area 3 times a day for 14 days. To affected area for up to 14 days. 22 g 1 LORazepam 0.5 MG Oral Tablet (Ativan) Take 1 tablet by mouth 45 minutes prior to scheduled MRI. Canrepeat 15 minutes prior if additional anxiety relief is required. 2 Tablet 0 Current Facility-Administered Medications Medication Dose Route Frequency Provider Last Rate Last Admin Hylan (Synvisc) inj 16 mg 16 mg Intra-Articular Q Week Herve Valera PA-C 16 mg at 01/20/24 1150 Hylan G-F 20 (Synvisc) inj 16 mg 16 mg Intra-Articular Once Herve Valera PA-C ASSESSMENT: Primary osteoarthritis of right knee (Primary) - Hylan G-F 20 (Synvisc) inj 16 mg - ARTHROCENT ASP &/OR INJ MAJOR JX/BURSA W/O US Chronic pain of right knee - Hylan G-F 20 (Synvisc) inj 16 mg - ARTHROCENT ASP &/OR INJ MAJOR JX/BURSA W/O US Follow Up: Return in about 6 months (around 07/29/2024) for Clinic Visit. | For: Clinic Visit PLAN: We discussed proceeding with her 3rd and final injection of her current Synvisc series. Patient is agreeable and motivated to proceed. Her injection was very well tolerated today. I recommended refraining from physical activity today, but she may resume activities as normal tomorrow. At this point patient is preferable to follow-up in 6 months' time for repeat Synvisc series. I would like patientto follow up at that time for such treatment. Patient was certainly urged to contact clinic in the interim with any questions, concerns, or worsening of symptoms. Patient is comfortable with the plan, and all questions were answered. Visco Injection Procedure Note: Right Knee: Time out: Prior to injection, a time out was called to confirm the administration of appropriate medicine, patient name, procedure and confirm to the best of our ability and knowledge the presence of any necessary risks and benefits. Patient verbalizes understanding. Consent obtained. Sterile techinique applied. Skin sterilized with alcohol swab and ChloraPrep. The right knee was injected using 1.5 inch, 22 gauge needle. Injected with Synvisc viscosupplementation preparation. Skincleansed with alcohol and Band-Aid placed. Patient tolerated procedure with no significant bleedingor adverse reaction. Patient instructed to call or return to clinic for fever or warmth and redness at injection site for potential infection. Patient also advised as to potential for increased pain and redness at injection site which should be treated with ice and resolve within 24 hours. This chart was completed in part utilizing [employer] Speech Voice Recognition Software. Grammatical errors, random word insertions, pronoun errors, and incomplete sentences are an occasional consequence of this system due to software limitations, ambient noise, and hardware issues. Any formal questions or concerns about the content, text, or information contained within the body of this dictation should be directly addressed to the provider for clarification. Herve Valera PA-C 01/27/2024 10:47 AM documented in this encounter Nursing Notes * Betzaida Dubose LPN - 01/27/2024 10:46 AM EDT F/U 3 rd injection of synvics right knee patient denies any pain today feels injection is working documented in this encounter Plan of Treatment Upcoming Encounters Date Type Department Care Team (Late st Contact Info) Description 02/03/2024 3:30 PM EDT Cardiac Studies Cardiac Studies, [address] [place] [address] 02/07/2024 3:10 PM EDT Anticoagulation Pharmacy, [address] [place] [address] [place] [address] 02/08/2024 11:45 AM EDT Imaging Radiology [facility] 1st Floor, [place] [address] [place] [address] 03/16/2024 9:00 AM EDT Imaging [facility] 2nd Floor Cardiology, [place] [address] [facility] [place] [address] 03/17/2024 10:00 AM EDT Imaging [facility] 2nd Floor Cardiology, [place] [address] [facility] [place] [address] 04/17/2024 11:00 AM EDT Office Visit Cardiology, [facility] [address] [place] [address] Daylin Diaz PA-C [address] [place] [address] 06/14/2024 1:40 PM EDT Office Visit Family Medicine [address] [place] [phone] Danika Chairez PA-C [address] [place] [address] [place] [address] 07/03/2024 11:40 AM EDT Office Visit Nutrition & Weight Management, [facility] [address] [place] [address] Tami Garrett PA-C [address] [place] [address] 08/03/2024 1:00 PM EST Office Visit Orthopaedics [facility] [address] [place] [address] Herve Valera PA-C [address] [place] [address] 08/07/2024 1:00 PM EST Laboratory Laboratory [address] [place] [phone] [place], [address] [place] [address] 08/10/2024 1:00 PM EST Office Visit Orthopaedics [facility] [address] [place] [address] Herve Valera PA-C [address] [place] [address] 08/14/2024 2:00 PM EST Office Visit Hematology/Oncology [facility] [address] [place] [phone] Jeanette Arellano MD [address] [facility] [place] [address] 08/23/2024 2:55 PM EST Office Visit Urogynecology [facility] [address] [place] [address] Bay Ferreira MD [address] [place] [address] Nurse Zach Hernandez [facility] [address] [place] [address] 08/24/2024 1:00 PM EST Office Visit Orthopaedics [facility] [address] [place] [address] Herve Valera PA-C [address] [place] [address] 12/19/2024 1:40 PM EDT Office Visit Family Medicine [address] [place] [phone] oYav Kong MD [address] [place] [address] [place] [address] 01/09/2025 10:30 AM EDT Office Visit Sleep Disorders Ctr [facility] [address] [place] [phone] Yara Beck CRNP [address] [place] [address] Scheduled Orders Name Type Priority Associated Diagnoses Orde r Schedule ARTHROCENT ASP &/OR INJ MAJOR JX/BURSA W/O US Procedures Routine Primary osteoarthritis of right knee Chronic pain of right knee Ordered: 01/27/2024 Scheduled Procedures Name Priority Associated Diagnoses Date/Ti me COLONOSCOPY FLEXIBLE PROXIMAL DIAGNOSTIC Recall Colon cancer screening Health Maintenance Due Date Last Done Comments Depression Screening 03/28/2022 03/28/2021 DTaP,Tdap,and Td Vaccines (2 - Td or Tdap) 06/14/2022 06/14/2012, 09/27/2005 CKD PHOS USE SMARTSET 80459 06/10/202405/22, 06/23/2022, 07/21/2021, Additional history exists GFR 07/08/2024 01/07/2024, 05/22, 10/16/2022, Additional history exists CKD HGB USE SMARTSET 58024 01/06/202501/06, 06/10/2023, 06/10/2023, Additional history exists Albumin/Creatinine [...] as of this encounter Visit Diagnoses Diagnosis Primary osteoarthritis of right knee- Primary Primary localized osteoarthrosis, lower leg Chronic pain of right knee documented in this encounter Administered Medications Inactive Administered Medications - up to 3 most recent administrations Medication Order MAR Action Action Date Dose Rate Site Hylan G-F 20 (Synvisc) inj 16 mg 16 mg, Intra-Articular, ONCE, On Emelina 01/27/24 at 1130, For 1 dose Given 01/27/2024 11:18 AM EDT 16 mg Knee Right documented in this encounter Advance Directives Documents on File Type Date Recorded Patient City Distribution Clerk Expl anation Advance Directives and Karrie Gutierrez 05/20/2016 ADVANCE DIRECTIVE Power of Gas Truck Driver 05/20/2016 POWER OF A TTORNEY Latest Code Status on File Code Status Date Activated Date Inactivated Comments Full Code 08/14/2008 10:37 AM 08/14/2008 10:38 AM Care Teams Storage Manager Relationship Specialty Start Date End Date Yoav Kong MD [address] [place] [address] [place] [address] PCP - General Family Medicine 04/09/14 documented as of this encounter
--- OUTSIDE RECORDS SUMMARY | 2024-06-16 04:12 | External Medical Summary | Summary of Care ---
Author Name Unknown Organization [facility] Address [address] [place] [address] Phone [phone] Care Team Providers Care Demand Planning Manager Name Role Phone Yoav Kong MD Primary Care Provide r Reason for Visit * Reason Onset Date Comments Test Results 02/07/2024 Encounter Details Date Type Department Care Team (Late st Contact Info) Description 02/07/2024 Telephone Cardiology, [facility] [address] [place] [address] Daylin Diaz, DEYVI [address] [place] [address] Test Results Allergies Active Allergy Reactions Criticality [...] embolism,Factor V Leiden (HCC),Anticoagulation management encounter,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 terminal 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 current use of anticoagulant therapy,Venous thrombosis TAKE [...] embolus (HCC),HTN, goal below 130/80,Factor V Leiden ([facility]) TAKE 1 TABLET BY MOUTH [...] kidney disease 07/29/2020 Overview: Per CKD protocol Mandaeism or spiritual beliefs affecting medical care 05/25/2019 [...] 12/20/2011 Anticoagulation management encounter 12/14/2011 ferry terminal agent current use of anticoagulant therapy 0 12/14/2011 [...] encounter Miscellaneous Notes * Telephone Encounter - Clari Freitas OSA - 02/07/2024 1:28 PM EDT Person calling: Linette Mayo Relationship to patient: self Number to return call: [phone] Reason for call: MTM Cardio pharm referral/prior auth Pharmacy: n/a Provider Name:Joe Leonard afternoon, Patient returning call regarding referral for MTM cardio referral in regards to the PCSK9 inhibitor, her silver scripts would need a prior authorization, but they will cover either Repatha or Praluent. Please place referral and send prior auth as needed, thank you BIANCA Galvez * Telephone Encounter - Jami Claire LPN [...] Description 02/07/2024 3:10 PM EDT Anticoagulation Pharmacy, [address] [place] [address] [place] [address] 02/08/2024 11:45 AM EDT Imaging Radiology [address] [place] [address] 03/16/2024 9:00 AM EDT Imaging [facility] 2nd Floor Cardiology, [place] [address] [facility] [place] [address] 03/17/2024 10:00 AM EDT Imaging [facility] 2nd Floor [facility]iology, [place] [facility] [place] [address] 04/17/2024 11:00 AM EDT Office Visit Cardiology, [facility] 132 [facility] [place] [address] Daylin Diaz PA-C [address] [place] [address] 06/14/2024 1:40 PM EDT Office Visit Family Medicine [address] [place] [phone] Danika Chairez PA-C [address] [place] [address] [place] [address] 07/03/2024 11:40 AM EDT Office Visit Nutrition & Weight Management, [facility] [address] [facility] [place] [address] Tami Garrett PA-C [address] [facility] [place] [address] 08/03/2024 1:00 PM EST Office Visit Orthopaedics [facility] [address] [facility] [place] [address] Herve Valera PA-C [address] [place] [address] 08/07/2024 1:00 PM EST Laboratory Laboratory [address] [place] [phone] [place] [address] 08/10/2024 1:00 PM EST Office Visit Orthopaedics [facility] [address] [facility] [place] [address] Herve Valera PA-C [address] [place] [address] 08/14/2024 2:00 PM EST Office Visit Hematology/Oncology [facility] [address] [place] [phone] Jeanette Arellano MD [address] [place] [address] 08/23/2024 2:55 PM EST Office Visit Urogynecology [facility] [address] [facility] [place] [address] Bay Frereira MD 132 [facility] [place] [address] HernandezNurse Zach williamson [facility] 132 [place] [address] 08/24/2024 1:00 PM EST Office Visit Orthopaedics [facility] 132 [facility] [place] [address] Herve Valera PA-C [address] [place] [address] 12/19/2024 1:40 PM EDT Office Visit Family Medicine [address] [place] [phone] Yoav Kong MD [address] [place] [address] [place] [address] 01/09/2025 10:30 AM EDT Office Visit Sleep Disorders Ctr [facility] [place] [phone] Yara Beck CRNP [address] [place] [address] Scheduled Procedures Name Priority Associated Diagnoses Date/Ti me COLONOSCOPY FLEXIBLE PROXIMAL DIAGNOSTIC Recall Colon cancer screening Health Maintenance Due Date Last Done Comments Depression Screening 03/28/2022 03/28/2021 DTaP,Tdap,and Td Vaccines (2 - Td or Tdap) 06/14/2022 06/14/2012, 09/27/2005 COVID-19 Vaccine ( season) 2023 08/02/2023, 06/19/2022, 01/27/2022, Additional history exists CKD PHOS USE SMARTSET 41258 06/10/202405/22, 06/23/2022, 07/21/2021, Additional history exists GFR 07/08/2024 01/07/2024, 05/22, 10/16/2022, Additional history exists CKD HGB USE SMARTSET 44329 01/06/202501/06, 06/10/2023, 06/10/2023, Additional history exists Albumin/Creatinine [...] Documents on File Type Date Recorded Patient Power Sewing Machine Operator Expl anation Advance Directives and Livin g Will 05/20/2016 ADVANCE DIRECTIVE Power of Information Security Specialist 05/20/2016 POWER OF A TTORNEY * Full Code (Latest Code Status on File) Date Activated Date Inactivated Comments 08/14/2008 10:37 AM 08/14/2008 10:38 AM Care Teams Demand Planning Manager Relationship Specialty Start Date End Date Yoav Kong MD [address] [place] [address] [place] [address] PCP - General Family Medicine 04/09/14 documented as of this encounter
--- OUTSIDE RECORDS SUMMARY | 2024-06-16 04:13 | External Medical Summary | Summary of Care ---
Author Name Unknown Organization [facility] Address [address] [place] [address] Phone [phone] Care Team Providers Care Flavoring Oil Filterer Name Role Phone Yoav Kong MD Primary Care Provide r Reason for Visit * Reason Comments Dosage Adjustment In Person (Anticoag Cl inic) Encounter Details Date Type Department Care Team (Latest Contact Info) Description 01/24/2024 11:00 AM EDT Anticoagulation Pharmacy, [address] [place] [address] [place] [address] Anticoagulation management encounter*; History of pulmonary embolism; [...] as of this encounter (statuses as of 01/24/2024) Medications Medication Sig Dispensed Refills Start Date [...] pulmonary embolism,Factor V Leiden (HCC),Anticoagulation management encounter,intermediate frame tender current use of anticoagulant therapy,Venous thrombosis TAKE [...] as of this encounter (statuses as of 01/24/2024) Active Problems Problem Noted Date Diagnosed Date [...] kidney disease 07/29/2020 Overview: Per CKD protocol Buddhist or spiritual beliefs affecting medical care 05/25/2019 Overview: No blood products Update of IMO term De Quervain's tenosynovitis 05/03/2019 Slac (scapholunate advanced collapse) of wrist, 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 Primary osteoarthritis of fi rst carpometacarpal joint of right hand 05/03/2019 Varicose veins of both legs with edema 9 BIACNA (obstructive sleep apnea) 03/24/2017 Overview: APAP 5-15 [...] as of this encounter (statuses as of 01/24/2024) Resolved Problems Problem Noted Date Diagnosed Date [...] as of this encounter (statuses as of 01/24/2024) Immunizations Name Administration Dates Next Due COVID-19 [...] Progress Notes * Kamala Tijerina RPh - 01/24/2024 11:01 AM EDT Images from the original note [...] Bruising Objective Current Warfarin Dose As of 01/24/2024 Warfarin maintenance plan: 2 mg (2 mg x 1) every day INR Result As of 01/24/2024 INR goal: 2.0-3.0 INR used for dosin.8 (01/24/2024) Assessment & Plan Warfarin Plan As of 01/24/2024 Full warfarin instructions: 3 mg every Mon; 2 mg all other days Next INR check: 02/07/2024 Repeat PT/INR in 2 week(s) Weekly dose: increased 7.1% Additional Dosing Information: Description Eats a green smoothie each day Kamala Tijerina RPh Clinical Pharmacist 01/24/2024, 11:01 AM documented in this encounter Plan of Treatment Upcoming Encounters Date Type Department Care Team (Late st Contact Info) Description 01/27/2024 10:30 AM EDT Office Visit Orthopaedics [facility] 132 [facility] [place] [address] Herve Valera PA-C [address] [place] [address] 02/03/2024 3:30 PM EDT Cardiac Studies Cardiac Studies, [facility] 132 [facility] [place] [address] 02/07/2024 3:10 PM EDT Anticoagulation Pharmacy, [address] [place] [address] [place] [address] 02/08/2024 11:45 AM EDT Imaging Radiology [facility] [place] [facility] [place] [address] 03/16/2024 9:00 AM EDT Imaging [facility] 2nd Floor Cardiology, [place] [address] [facility] [place] [address] 03/17/2024 10:00 AM EDT Imaging [facility] 2nd Floor Cardiology, [place] 132 [facility] [place] [address] 04/17/2024 11:00 AM EDT Office Visit Cardiology, [facility] 132 [facility] [place] [address] Daylin Diaz PA-C [address] [place] [address] 06/14/2024 1:40 PM EDT Office Visit Family Medicine [address] [place] [phone] Danika Chairez PA-C [address] [place] [address] [place] [address] 07/03/2024 11:40 AM EDT Office Visit Nutrition & Weight Management, [facility] [address] [place] [address] Tami Garrett PA-C [address] [place] [address] 08/07/2024 1:00 PM EST Laboratory Laboratory [address] [place] [phone] [place] [address] 08/14/2024 2:00 PM EST Office Visit Hematology/Oncology [facility] [address] [place] [phone] Jeanette Arellano MD [address] [place] [address] 08/23/2024 2:55 PM EST Office Visit Urogynecology Nico Hernandez [address] [place] [address] Bay Ferreira MD [address] [place] [address] Nurse Zach Hernandez [address] [place] [address] 12/19/2024 1:40 PM EDT Office Visit Family Medicine [address] [place] [phone] Yoav Kong MD [address] [place] [address] [place] [address] 01/09/2025 10:30 AM EDT Office Visit Sleep Disorders Ctr Shayna Hernandez [place] [address] [place] [phone] Yara Beck CRNP [address] [place] [address] Scheduled Procedures Name Priority Associated Diagnoses Date/Ti me COLONOSCOPY FLEXIBLE PROXIMAL DIAGNOSTIC Recall Colon cancer screening Health Maintenance Due Date Last Done Comments Depression Screening 03/28/2022 03/28/2021 DTaP,Tdap,and Td Vaccines (2 - Td or Tdap) 06/14/2022 06/14/2012, 09/27/2005 CKD PHOS USE SMARTSET 54973 06/10/202405/22, 06/23/2022, 07/21/2021, Additional history exists GFR 07/08/2024 01/07/2024, 05/22, 10/16/2022, Additional history exists CKD HGB USE SMARTSET 98036 01/06/202501/06, 06/10/2023, 06/10/2023, Additional history exists Albumin/Creatinine [...] Comments INR FINGERSTICK, POINT OF CARE STAT 01/24/2024 11:04 AM EDT History of pulmonary embolism Factor V Leiden (HCC) Anticoagulation management encounter documented in this encounter Results * INR FINGERSTICK, POINT OF CARE (01/24/2024 11:04 AM EDT) Fingerstick INR 1.8 INR 11:05 AM EDT [facility] Blood 01/24/2024 11:0 4 AM EDT 01/24/2024 11:05 AM EDT Narrative [facility] - 01/24/2024 11:05 AM EDT Therapeutic ranges for non-operative patients: Prophylaxsis/treatment of DVT: (Range:2.0-3.0) Treatment of pulmonary embolism:(Range:2.0-3.0) Prevention of systemic embolism from: -tissue heart valves -acute myocardial infarction -valvular heart disease -atrial fibrillation (Range: 2.0-3.0) Mechanical prosthetic valves: (Range: 2.5-3.5) Kamala Tijerina [facility] POINT OF CARE TEST DOCKED DEVICE UNSOLICITED RESULTS [facility] [address] [place] [address] [place] [address] documented in this encounter Visit Diagnoses Diagnosis Anticoagulation management encounter- Primary Encounter for therapeutic drug monitoring History of pulmonary embolism Personal history of pulmonary embolism Factor V Leiden (HCC) Primary hypercoagulable state documented in this encounter Advance Directives Documents on File Type Date Recorded Patient Manager Telemarketing Expl anation Advance Directives and Livin g Will 05/20/2016 ADVANCE DIRECTIVE Power of Program Scheduler 05/20/2016 POWER OF A TTORNEY Latest Code Status on File Code Status Date Activated Date Inactivated Comments Full Code 08/14/2008 10:37 AM 08/14/2008 10:38 AM Care Teams Flavoring Oil Filterer Relationship Specialty Start Date End Date Yoav Kong MD [address] [place] [address] [place] [address] PCP - General Family Medicine 04/09/14 documented as of this encounter
--- OUTSIDE RECORDS SUMMARY | 2024-06-16 04:13 | External Medical Summary | Summary of Care ---
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,Venous thrombosis [...] kidney disease 07/29/2020 Overview: Per CKD protocol Episcopalian or spiritual beliefs affecting medical care 05/25/2019 [...] pulmonary embolism 12/20/2011 Anticoagulation management encounter 12/14/2011 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 0 12/14/2011 [...] 01/27/2024 10:30 AM EDT Office Visit Orthopaedics [facility] [address] [place] [address] Herve Valera PA-C [address] [place] [address] 02/03/2024 3:30 PM EDT Cardiac Studies Cardiac Studies, [facility] 132 [facility] [place] [address] 02/07/2024 3:10 PM EDT Anticoagulation Pharmacy, [address] [place] [address] [place] [address] 02/08/2024 11:45 AM EDT Imaging Radiology [facility] 1st Floor, [address] [place] [address] 03/16/2024 9:00 AM EDT Imaging [facility] 2nd Floor Cardiology, [address] [place] [address] 03/17/2024 10:00 AM EDT Imaging [facility] 2nd Floor Cardiology, [address] [place] [address] 04/17/2024 11:00 AM EDT Office Visit Cardiology, [facility] 132 [facility] [place] [address] Daylin Diaz PA-C [address] [place] [address] 06/14/2024 1:40 PM EDT Office Visit Family Medicine [address] [place] [phone] Danika Chairez PA-C [address] [place] [address] [place] [address] 07/03/2024 11:40 AM EDT Office Visit Nutrition & Weight Management, [facility] [address] [place] [address] Tami Garrett PA-C [address] [place] [address] 08/07/2024 1:00 PM EST Laboratory Laboratory [address] [place] [phone] [place] [address] 08/14/2024 2:00 PM EST Office Visit Hematology/Oncology [facility] [address] [place] [phone] Jeanette Arellano MD [address] [place] [address] 08/23/2024 2:55 PM EST Office Visit Urogynecology [facility] [address] [place] [address] Bay Ferreira MD [address] [place] [address] Nurse Zach Hernandez [address] [place] [address] 12/19/2024 1:40 PM EDT Office Visit Family Medicine [address] [place] [phone] Yoav Kong MD [address] [place] [address] [place] [address] 01/09/2025 10:30 AM EDT [facility] [address] [place] [phone] Yara Beck CRNP [address] [place] [address] Scheduled Procedures Name Priority Associated Diagnoses Date/Ti me COLONOSCOPY FLEXIBLE PROXIMAL DIAGNOSTIC Recall Colon cancer screening Health Maintenance Due Date Last Done Comments Depression Screening 03/28/2022 03/28/2021 DTaP,Tdap,and Td Vaccines (2 - Td or Tdap) 06/14/2022 06/14/2012, 09/27/2005 CKD PHOS USE SMARTSET 25251 06/10/202405/22, 06/23/2022, 07/21/2021, Additional history exists GFR 07/08/2024 01/07/2024, 05/22, 10/16/2022, Additional history exists CKD HGB USE SMARTSET 77357 01/06/202501/06, 06/10/2023, 06/10/2023, Additional history exists Albumin/Creatinine [...] Documents on File Type Date Recorded Patient 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
--- OUTSIDE RECORDS SUMMARY | 2024-06-16 04:13 | External Medical Summary | Summary of Care ---
Author Name Unknown Organization [facility] [address] [facility] [address] Phone [phone] Care Team Providers Care Seating Upholsterer Name Role Phone Yoav Kong MD Primary Care Provide r Reason for Visit * Reason Comments Follow Up R knee Encounter Details Date Type Department Care Team (Late st Contact Info) Description 01/20/2024 11:00 AM EDT Office Visit Orthopaedics [facility] 132 [facility] [place] [address] Herve Valera PA-C [address] [place] [address] Primary osteoarthritis of right knee*; Right knee pain, unspecified chronicity Allergies Active Allergy Reactions Criticality Noted Date [...] 22 g 1 4 02/03/20 24 Active Hospital, Clinic, or Other Facility Administered Medication Ordered Dose Route Frequency Start Date End Date Status Hylan (Synvisc) inj 16 mgIndications:Primary osteoarthritis of right knee 16 mg IX QWEEK 07/08/2023 Active Hylan G-F 20 (Synvisc) inj 16 mgIndications:Primary osteoarthritis of right knee,Right knee pain, unspecified chronicity 16 mg IX ONCE 01/20/2024 01/20/2024 En ded documented as of this encounter (statuses as [...] Progress Notes * Herve Valera PA-C - 01/20/2024 10:57 AM EDT ORTHOPAEDIC SURGERY - Clinic Note/Visco Injection SUBJECTIVE: Linette Trujillo is a 78 year old female. Chief Complaint Patient presents with Follow Up R knee HPI: Linette is a very pleasant 78-year-old female who presents to the clinic today for her 2nd Synvisc viscosupplementation injection for the right knee for treatment of her primary osteoarthritisand chronic pain. She has received excellent relief from Synvisc injections in the past. She reports noticing relief following her 1st injection last week. Review of patient's allergies indicates: Allergen Reactions [...] up to 14 days. 22 g 1 Current Facility-Administered Medications Medication Dose Route Frequency Provider Last Rate Last Admin Hylan (Synvisc) inj 16 mg 16 mg Intra-Articular Q Week Herve Valera PA-C 16 mg at 01/13/24 1419 Hylan G-F 20 (Synvisc) inj 16 mg 16 mg Intra-Articular Once Herve Valera PA-C ASSESSMENT: Primary osteoarthritis of right knee (Primary) - Hylan G-F 20 (Synvisc) inj 16 mg - ARTHROCENT ASP &/OR INJ MAJOR JX/BURSA W/O US Right knee pain, unspecified chronicity - Hylan G-F 20 (Synvisc) inj 16 mg - ARTHROCENT ASP &/OR INJ MAJOR JX/BURSA W/O US Follow Up: Return in about 1 week (around 01/27/2024) for Clinic Visit. | For: Clinic Visit PLAN: We discussed repeat Synvisc injection in the office today. Patient was agreeable and motivated to proceed with continuation of her series. This was very well tolerated today. Patient will refrain from significant physical activity today, but may resume activities as normal tomorrow. I would like patient to follow up in 1 week for her 3rd and final Synvisc injection of her current series. Patient was certainly urged to contact clinic [...] This chart was completed in part utilizing [employer] Speech Voice Recognition Software. Grammatical errors, random word insertions, pronoun errors, and incomplete sentences are an occasional consequence of this system due to software limitations, ambient noise, and hardware issues. Any formal questions or concerns about the content, text, or information contained within the body of this dictation should be directly addressed to the provider for clarification. Herve Valera PA-C 01/20/2024 10:58 AM documented in this encounter Nursing Notes * Maryjane Resendiz LPN - 01/20/2024 10:45 AM EDT Pt presents for 1 week follow up R knee, to receive Synvisc injection #2. Feels well. documented in this encounter Plan of Treatment Upcoming Encounters Date Type Department Care Team (Late st Contact Info) Description 01/27/2024 10:30 AM EDT Office Visit Orthopaedics [facility] 132 [facility] [place] [address] Herve Valera PA-C [address] [place] [address] 02/03/2024 3:30 PM EDT Cardiac Studies Cardiac Studies, [facility] 132 [facility] [place] [address] 02/07/2024 3:10 PM EDT Anticoagulation Pharmacy, [address] [place] [address] [place] [address] 02/08/2024 11:45 AM EDT Imaging Radiology [facility] 1st Floor, [place] [facility] [place] [address] 03/16/2024 9:00 AM EDT Imaging [facility] 2nd Floor Cardiology, [address] [place] [address] 03/17/2024 10:00 AM EDT Imaging [facility] 2nd Floor Cardiology, [place] 132 [facility] [place] [address] 04/17/2024 11:00 AM EDT Office Visit Cardiology, [facility] 132 [facility] [place] [address] Daylin Diaz PA-C [address] [place] [address] 06/14/2024 1:40 PM EDT Office Visit Family Medicine [address] [place] [phone] Danika Chairez PA-C [address] [place] [address] [place] [address] 07/03/2024 11:40 AM EDT Office Visit Nutrition & Weight Management, [facility] [address] [place] [address] Tami Garrett PA-C [address] [place] [address] 08/07/2024 1:00 PM EST Laboratory Laboratory [address] [place] [phone] [place] [address] 08/14/2024 2:00 PM EST Office Visit Hematology/Oncology [facility] [address] [place] [phone] Jeanette Arellano MD [address] [place] [address] 08/23/2024 2:55 PM EST Office Visit Urogynecology [facility] [address] [place] [address] Bay Ferreira MD [address] [place] [address] Nurse Zach Hernandez [address] [place] [address] 12/19/2024 1:40 PM EDT Office Visit Family Medicine [address] [place] [phone] Yoav Kong MD [address] [place] [address] [place] [address] 01/09/2025 10:30 AM EDT [facility] [address] [place] [phone] Yara Beck CRNP [address] [place] [address] Scheduled Orders Name Type Priority Associated Diagnoses Orde r Schedule ARTHROCENT ASP &/OR INJ MAJOR JX/BURSA W/O US Procedures Routine Primary osteoarthritis of right knee Right knee pain, unspecified chronicity Ordered: 01/20/2024 Scheduled Procedures Name Priority Associated Diagnoses Date/Ti me COLONOSCOPY FLEXIBLE PROXIMAL DIAGNOSTIC Recall Colon cancer screening Health Maintenance Due Date Last Done Comments Depression Screening 03/28/2022 03/28/2021 DTaP,Tdap,and Td Vaccines (2 - Td or Tdap) 06/14/2022 06/14/2012, 09/27/2005 CKD PHOS USE SMARTSET 50740 06/10/202405/22, 06/23/2022, 07/21/2021, Additional history exists GFR 07/08/2024 01/07/2024, 05/22, 10/16/2022, Additional history exists CKD HGB USE SMARTSET 83861 01/06/202501/06, 06/10/2023, 06/10/2023, Additional history exists Albumin/Creatinine [...] knee- Primary Primary localized osteoarthrosis, lower leg Right knee pain, unspecified chronicity documented in this encounter Administered Medications Active Administered Medications - up to 3 most recent administrations Medication Order MAR Action Action Date Dose Rate Site Hylan (Synvisc) inj 16 mg 16 mg, Intra-Articular, QWEEK, First dose on Emelina 07/08/23 at 1315, Until Discontinued Given 01/20/2024 11:50 AM EDT 16 mg Knee Right Given 01/13/2024 2:19 PM EDT 16 mg Kn ee Right Given 07/08/2023 12:39 PM EDT 16 mg K nee Right documented in this encounter Advance Directives Documents on File Type Date Recorded Patient Logistics Analyst Expl anation Advance Directives and Livin g Will 05/20/2016 ADVANCE DIRECTIVE Power of Clinical Engineering Director 05/20/2016 POWER OF A TTORNEY Latest Code Status on File Code Status Date Activated Date Inactivated Comments Full Code 08/14/2008 10:37 AM 08/14/2008 10:38 AM Care Teams Seating Upholsterer Relationship Specialty Start Date End Date Yoav Kong MD [address] [place] [address] [place] [address] PCP - General Family Medicine 04/09/14 documented as of this encounter
--- OUTSIDE RECORDS SUMMARY | 2024-06-16 04:13 | External Medical Summary | Summary of Care ---
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 0 12/14/2011 [...] 01/27/2024 10:30 AM EDT Office Visit Orthopaedics [facility] [address] [place] [address] Herve Valera PA-C [address] [place] [address] 02/03/2024 3:30 PM EDT Cardiac Studies Cardiac Studies, [facility] 132 [facility] [place] [address] 02/07/2024 3:10 PM EDT Anticoagulation Pharmacy, [address] [place] [address] [place] [address] 02/08/2024 11:45 AM EDT Imaging Radiology [facility] 1st Floor, [address] [place] [address] 03/16/2024 9:00 AM EDT Imaging [facility] 2nd Floor Cardiology, [address] [place] [address] 03/17/2024 10:00 AM EDT Imaging [facility] 2nd Floor Cardiology, [address] [place] [address] 04/17/2024 11:00 AM EDT Office Visit Cardiology, [facility] 132 [facility] [place] [address] Daylin Diaz PA-C [address] [place] [address] 06/14/2024 1:40 PM EDT Office Visit Family Medicine [address] [place] [phone] Danika Chairez PA-C [address] [place] [address] [place] [address] 07/03/2024 11:40 AM EDT Office Visit Nutrition & Weight Management, [facility] [address] [place] [address] Tami Garrett PA-C [address] [place] [address] 08/07/2024 1:00 PM EST Laboratory Laboratory [address] [place] [phone] [place] [address] 08/14/2024 2:00 PM EST Office Visit Hematology/Oncology [facility] [address] [place] [phone] Jeanette Arellano MD [address] [place] [address] 08/23/2024 2:55 PM EST Office Visit Urogynecology [facility] [address] [place] [address] Bay Ferreira MD [address] [place] [address] Nurse Zach Hernandez [address] [place] [address] 12/19/2024 1:40 PM EDT Office Visit Family Medicine [address] [place] [phone] Yoav Kong MD [address] [place] [address] [place] [address] 01/09/2025 10:30 AM EDT [facility] [address] [place] [phone] Yara Beck CRNP [address] [place] [address] Scheduled Procedures Name Priority Associated Diagnoses Date/Ti me COLONOSCOPY FLEXIBLE PROXIMAL DIAGNOSTIC Recall Colon cancer screening Health Maintenance Due Date Last Done Comments Depression Screening 03/28/2022 03/28/2021 DTaP,Tdap,and Td Vaccines (2 - Td or Tdap) 06/14/2022 06/14/2012, 09/27/2005 CKD PHOS USE SMARTSET 32597 06/10/202405/22, 06/23/2022, 07/21/2021, Additional history exists GFR 07/08/2024 01/07/2024, 05/22, 10/16/2022, Additional history exists CKD HGB USE SMARTSET 52061 01/06/202501/06, 06/10/2023, 06/10/2023, Additional history exists Albumin/Creatinine [...] Documents on File Type Date Recorded Patient Spooler Operator Expl ruben Advance Directives and Karrie mata Will 05/20/2016 ADVANCE DIRECTIVE Power of Plug Cutting Machine Operator 05/20/2016 POWER OF A TTORNEY Latest Code Status on File Code Status Date Activated Date Inactivated Comments Full Code 08/14/2008 10:37 AM 08/14/2008 10:38 AM Care Teams Administrative Services Director Relationship Specialty Start Date End Date Yoav Kong MD [address] [place] [address] [place] [address] PCP - General Family Medicine 04/09/14 documented as of this encounter
--- OUTSIDE RECORDS SUMMARY | 2024-06-16 04:13 | External Medical Summary | Summary of Care ---
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 [place] [address] 02/07/2024 3:10 PM EDT Anticoagulation Pharmacy, [address] [place] [address] [place] [address] 02/08/2024 11:45 AM EDT Imaging Radiology [facility] 1st Floor, [address] [place] [address] 03/16/2024 9:00 AM EDT Imaging [facility] 2nd Floor Cardiology, [address] [place] [address] 03/17/2024 10:00 AM EDT Imaging [facility] 2nd Floor Cardiology, [address] [place] [address] 04/17/2024 11:00 AM EDT Office Visit Cardiology, [facility] [address] [facility] [place] [address] Daylin Diaz PA-C [address] [place] [address] 06/14/2024 1:40 PM EDT Office Visit Family Medicine [address] [place] [phone] Danika Chairez PA-C [address] [place] [address] [place] [address] 07/03/2024 11:40 AM EDT Office Visit Nutrition & Weight Management, [facility] [address] [place] [address] Tami Garrett PA-C [address] [place] [address] 08/07/2024 1:00 PM EST Laboratory Laboratory [address] [place] [phone] [place] [address] 08/14/2024 2:00 PM EST Office Visit Hematology/Oncology [facility] [address] [place] [phone] Jeanette Arellano MD [address] [place] [address] 08/23/2024 2:55 PM EST Office Visit Urogynecology [facility] [address] [place] [address] Bay Ferreira MD [address] [place] [address] Nurse Zach Hernandez [address] [place] [address] 12/19/2024 1:40 PM EDT Office Visit Family Medicine [address] [place] [phone] Yoav Kong MD [address] [place] [address] [place] [address] 01/09/2025 10:30 AM EDT [facility] [address] [place] [phone] Yara Beck CRNP [address] [place] [address] Scheduled Procedures Name Priority Associated Diagnoses Date/Ti me COLONOSCOPY FLEXIBLE PROXIMAL DIAGNOSTIC Recall Colon cancer screening Health Maintenance Due Date Last Done Comments Depression Screening 03/28/2022 03/28/2021 DTaP,Tdap,and Td Vaccines (2 - Td or Tdap) 06/14/2022 06/14/2012, 09/27/2005 CKD PHOS USE SMARTSET 81015 06/10/202405/22, 06/23/2022, 07/21/2021, Additional history exists GFR 07/08/2024 01/07/2024, 05/22, 10/16/2022, Additional history exists CKD HGB USE SMARTSET 48628 01/06/202501/06, 06/10/2023, 06/10/2023, Additional history exists Albumin/Creatinine [...] Documents on File Type Date Recorded Patient 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
--- OUTSIDE RECORDS SUMMARY | 2024-06-16 04:13 | External Medical Summary | Summary of Care ---
Demographics Address [address] [place] [address] Mobile Phone Home Phone Email Address Preferred Language Thai Marital Status Unknown Church Affiliation Unknown Race White Ethnic Group Not or Lati no Author Name Unknown Organization [facility] Address [address] [place] [address] Phone [phone] Care Team Providers Care Garment Form Assembler Name Role Phone Yoav Kong MD Primary Care Provide r Reason for Visit * Reason Comments Follow Up Right knee pain Encounter Details Date Type Department Care Team (Late st Contact Info) Description 01/27/2024 10:30 AM EDT Office Visit Orthopaedics [facility] [address] [facility] [place] [address] Herve Valera PA-C [address] [...] of pulmonary embolism,Factor V Leiden (HCC),Anticoagulation management encounter,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 Grammatical errors, random [...] PM EDT Cardiac Studies Cardiac Studies, [address] [place] [address] 02/07/2024 3:10 PM EDT Anticoagulation Pharmacy, [address] [place] [address] [phone] [place] [address] [place] [address] 02/08/2024 11:45 AM EDT Imaging Radiology [facility] 1st Floor, [place] [address] [place] [address] 03/16/2024 9:00 AM EDT Imaging [facility] 2nd Floor Cardiology, [place] [address] [facility] [place] [address] 03/17/2024 10:00 AM EDT Imaging [facility] 2nd Floor Cardiology, [place] [facility] [place] [address] 04/17/2024 11:00 AM EDT Office Visit [facility]iology, [facility] [place] [address] Daylin Diaz PA-C 132 [facility] [place] [address] 06/14/2024 1:40 PM EDT Office Visit Family Medicine [address] [place] [phone] Danika Chairez PA-C [address] [place] [address] [place] [address] 07/03/2024 11:40 AM EDT Office Visit Nutrition & Weight Management, [facility] [address] [facility] [place] [address] Tami Garrett PA-C [address] [place] [address] 08/03/2024 1:00 PM EST Office Visit Orthopaedics [facility] [place] [address] Herve Valera PA-C [address] [place] [address] 08/07/2024 1:00 PM EST Laboratory Laboratory [address] [place] [phone] [place], [address] [place] [address] 08/10/2024 1:00 PM EST [facility] [address] [place] [address] Herve Valera PA-C [address] [place] [address] 08/14/2024 2:00 PM EST Office Visit Hematology/Oncology [facility] [address] [place] [phone] Jeanette Arellano MD [address] [place] [address] 08/23/2024 2:55 PM EST Office Visit Urogynecology [facility] [address] [place] [address] Bay Ferreira MD [address] [place] [address] Nurse Zach Hernandez [address] [place] [address] 08/24/2024 1:00 PM EST [facility] [address] [place] [address] Herve Valera PA-C [address] [place] [address] 12/19/2024 1:40 PM EDT Office Visit Family Medicine [address] [place] [phone] Yoav Kong MD [address] [place] [address] [place] [address] 01/09/2025 10:30 AM EDT Office Visit Sleep Disorders Ctr [facility] [address] [place] [phone] Yara Beck CRNP [address] [place] [address] Scheduled Orders Name Type Priority Associated Diagnoses [...] 06/14/2022 06/14/2012, 09/27/2005 CKD PHOS USE SMARTSET 16315 06/10/202405/22, 06/23/2022, 07/21/2021, Additional history exists GFR 07/08/2024 01/07/2024, 05/22, 10/16/2022, Additional history exists CKD HGB USE SMARTSET 30998 01/06/202501/06, 06/10/2023, 06/10/2023, Additional history exists Albumin/Creatinine [...] of right knee documented in this encounter Advance Directives Documents on File Type Date Recorded Patient Marketing Coordinator Expl anation Advance Directives and Livmarblela mata Will 05/20/2016 ADVANCE DIRECTIVE Power of Rayon Winder 05/20/2016 POWER OF A TTORNEY Latest Code Status on File Code Status Date Activated Date Inactivated Comments Full Code 08/14/2008 10:37 AM 08/14/2008 10:38 AM Care Teams Garment Form Assembler Relationship Specialty Start Date End Date Yoav Kong MD [address] [place] [address] [place] [address] PCP - General Family Medicine 04/09/14 documented as of this encounter
--- OUTSIDE RECORDS SUMMARY | 2024-06-16 04:14 | External Medical Summary | Summary of Care ---
Author Name Unknown Organization [facility] Address [address] [facility] [address] Phone [phone] Care Team Providers Care School Plant Consultant Name Role Phone Yoav Kong MD Primary Care Provide r Reason for Visit * Reason Comments Follow Up R knee Encounter Details Date Type Department Care Team (Late st Contact Info) Description 01/20/2024 11:00 AM EDT Office Visit Orthopaedics [facility] 132 [facility] [place] [address] Herve Valera PA-C [address] [...] as of this encounter (statuses as of 01/20/2024) Medications Medication Sig Dispensed Refills Start Date [...] of pulmonary embolism,Factor V Leiden (HCC),Anticoagulation management encounter,FCI current use of anticoagulant therapy,Venous thrombosis TAKE [...] chronicity 16 mg IX ONCE 01/20/2024 01/20/2024 Ac tive documented as of this encounter (statuses as of 01/20/2024) Active Problems Problem Noted Date Diagnosed Date [...] as of this encounter (statuses as of 01/20/2024) Resolved Problems Problem Noted Date Diagnosed Date [...] as of this encounter (statuses as of 01/20/2024) Immunizations Name Administration Dates Next Due COVID-19 [...] This chart was completed in part utilizing Full[employer] Speech Voice Recognition Software. Grammatical errors, random [...] Team (Late st Contact Info) Description 01/24/2024 11:00 AM EDT Anticoagulation Pharmacy, [address] [place] [address] [place] [address] 01/27/2024 10:30 AM EDT Office Visit Orthopaedics [facility] 132 [facility] [place] [address] Herve Valera PA-C [address] [place] [address] 02/03/2024 3:30 PM EDT Cardiac Studies Cardiac Studies, [facility] 132 [facility] [place] [address] 02/08/2024 11:45 AM EDT Imaging Radiology [facility] 1st Floor, [place] [facility] [place] [address] 03/16/2024 9:00 AM EDT Imaging [facility] 2nd Floor Cardiology, [address] [place] [address] 03/17/2024 10:00 AM EDT Imaging [facility] 2nd Floor Cardiology, [place] [address] [facility] [place] [address] 04/17/2024 11:00 AM EDT Office Visit Cardiology, [facility] [address] [facility] [place] [address] Daylin Diaz PA-C 132 [facility] [place] [address] 06/14/2024 1:40 PM EDT Office Visit [address] [place] [phone] Danika Chairez PA-C [address] [place] [address] [place] [address] 07/03/2024 11:40 AM EDT Office Visit Nutrition & Weight Management, [facility] [address] [place] [address] Tami Garrett PA-C [address] [place] [address] 08/07/2024 1:00 PM EST Laboratory Laboratory [address] [place] [phone] [place] [address] 08/14/2024 2:00 PM EST Office Visit Hematology/Oncology [facility] [address] [place] [phone] Jeanette Arellano MD [address] [place] [address] 08/23/2024 2:55 PM EST Office Visit Urogynecology [facility] [address] [place] [address] Bay Ferreira MD [address] [place] [address] Nurse Zach Hernandez [address] [place] [address] 12/19/2024 1:40 PM EDT Office Visit Family Medicine [address] [place] [phone] Yoav Kong MD [address] [place] [address] [place] [address] 01/09/2025 10:30 AM EDT Office Visit Sleep Disorders Ctr Shayna Hernandez [place] [address] [place] [phone] Yara Beck CRNP [address] [place] [address] Scheduled Orders Name Type Priority Associated Diagnoses [...] 06/14/2022 06/14/2012, 09/27/2005 CKD PHOS USE SMARTSET 13161 06/10/202405/22, 06/23/2022, 07/21/2021, Additional history exists GFR 07/08/2024 01/07/2024, 05/22, 10/16/2022, Additional history exists CKD HGB USE SMARTSET 45137 01/06/202501/06, 06/10/2023, 06/10/2023, Additional history exists Albumin/Creatinine [...] Documents on File Type Date Recorded Patient Security Systems Integrator Expl anation Advance Directives and Livin g Will 05/20/2016 ADVANCE DIRECTIVE Power of Bioinformatics Programmer 05/20/2016 POWER OF A TTORNEY Latest Code Status on File Code Status Date Activated Date Inactivated Comments Full Code 08/14/2008 10:37 AM 08/14/2008 10:38 AM Care Teams School Plant Consultant Relationship Specialty Start Date End Date Yoav Kong MD [address] [place] [address] [place] [address] PCP - General Family Medicine 04/09/14 documented as of this encounter
--- OUTSIDE RECORDS SUMMARY | 2024-06-16 04:14 | External Medical Summary | Summary of Care ---
Author Name Unknown Organization [facility] Address [address] [place] [address] Phone [phone] Care Team Providers Care Roving Or Yarn Color Checker Name Role Phone Yoav Kong MD Primary Care Provide r Reason for Visit * Reason Comments Acute Pt c/o spot on the b ack of her neck, draining fluid, painful noticed it about 7-8 days ago, has tried neosporin. Encounter Details Date Type Department Care Team (Late st Contact Info) Description 01/20/2024 9:40 AM EDT Office Visit Family Medicine [address] [place] [address] Herve Worley MD [address] [place] [address] [place] [address] Cellulitis and abscess of neck* Allergies Active Allergy Reactions Criticality Noted Date [...] pulmonary embolism,Factor V Leiden (HCC),Anticoagulatio n management encounter,shelter current use of anticoagulant therapy,Venous [...] 4 Active Cephalexin 500 MG Oral Capsule (Keflex)Indications: Cellulitis and abscess of neck Take 1 Capsule by mouth in the morning and 1 Capsule at noon and 1 Capsule before bedtime. Do all this for 10 days. 30 Capsule 0 4 024 Active Mupirocin 2 % External Ointment (Bactroban)Indicatio ns:Cellulitis and abscess of neck Apply topically to affected area 3 times a day for 14 days. To affected area for up to 14 days. 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 She wears a sleep machine but the strap does not hit there. 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 Z79.01 Factor V Leiden (HCC) D68.51 HTN, goal below 140/90 I10 History of pulmonary embolism Z86.711 Hypothyroidism E03.9 Spider veins of both lower extremities I83.93 Statin intolerance Z78.9 BIANCA (obstructive sleep apnea) G47.33 Varicose veins of both legs with edema I83.893 De Quervain's tenosynovitis 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, 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 Primary osteoarthritis of first carpometacarpal joint of right hand M18.11 Lutheran or spiritual beliefs affecting medical care Z53.1 Hypertensive kidney disease with stage 3a chronic kidney disease I12.9, N18.31 Chronic kidney disease, stage 3a ([facility]) N18.31 Infiltrating ductal carcinoma of left breast ([facility]) C50.912 Laceration of left index finger without foreign body without damage to nail S61.211A Diastolic dysfunction I51.89 Obesity, morbid (more than 100 lbs over ideal weight or BMI > 40) ([facility]) E66.01 Past Medical History: Diagnosis Date Allergic rhinitis due to other allergen Anticoagulation management encounter 12/14/2011 BRCA1 gene mutation negative BRCA2 gene mutation negative Breast cancer ([facility]) 07/10/2021 Left Breast Invasive ductal carcinoma, histologic grade 3 CATARACT NOS 01/25/2007 COMMON MIGRAINE WITHOUT MENTION OF INTRACTABLE MIGRAINE 01/01/2003 Current tear of medial cartilage or meniscus of knee Dyslipidemia, goal LDL below 100 08/29/2009 Embolism - blood clot Esophageal reflux Esophagitis, unspecified Factor V Leiden ([facility]) 12/28/2011 GENERALIZED ANXIETY DIS 12/19/2001 Headache(784.0) 06/26/2002 HTN, goal below 140/90 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 Kidney disease, chronic, stage III (GFR 30-59 ml/min) ([facility]) 05/07/09 23/1.0 GFR 59.1 LIPOMA SKIN NEC 01/02/2008 Mitral valve disorder prolapse, uses SBE prophylaxis Mitral valve prolapse Mixed dyslipidemia Oral aphthae BIANCA (obstructive sleep apnea) 03/24/2017 Pulmonary embolus ([facility]) 11/2011 SBE (subacute bacterial endocarditis) prophylaxis candidate Sleep apnea, obstructive Stomatitis and mucositis (ulcerative) recurrent apthous ulcers Tear of lateral cartilage or meniscus of knee, current Tear of tendon of right ankle 2014 Temporomandibular joint disorders, unspecified Vaginitis chronic Venous thrombosis 12/14/2011 Past Surgical History: Procedure Laterality Date BX [...] DEEP performed by LAVERNE LAU at OR [facility] MASTECTOMY, PARTIAL Left 08/20/2021 MASTECTOMY PARTIAL performed [...] Terazol [Terconazole] hives Terconazole Unknown Fluconazole Hives Social History Socioeconomic History Marital status: Spouse name: Not on file Number of children: Not on file Years of education: Not on file Highest education level: Not on file Occupational History 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 Tobacco Use Smoking status: Never Smokeless tobacco: Never Vaping Use Vaping Use: Never used Substance and Sexual Activity Alcohol use: Yes Comment: Very rare- once a month if that Drug use: No Sexual activity: Yes Partners: Male Other Topics Concern Service Not Asked Blood Transfusions Not Asked Caffeine Concern Not Asked Occupational Exposure Not Asked Hobby Hazards Not Asked Sleep Concern Not Asked Stress Concern Not Asked Weight Concern Not Asked Special Diet Yes Comment: healthy, weight watchers Back Care Not Asked Exercise Yes Comment: walking Bike Helmet Not Asked Seat Belt Yes Self-Exams Yes Social History Narrative Not on file Social Determinants of Health Financial Resource Strain: Not on file Food Insecurity: No Food Insecurity (10/17/2019) Hunger Vital Sign Worried About Running Out of Food in the Last Year: Never true Ran Out of Food in the Last Year: Never true Transportation Needs: Not on file Physical Activity: Not on file Stress: Not on file Social Connections: Not on file Intimate Partner Violence: Not on file Housing Stability: Not on file Current Outpatient Medications Medication Sig Dispense Refill [...] BY MOUTH EVERY DAY 90 Tablet 2 Wegovy 0.25 MG/0.5ML Subcutaneous Solution Auto-injector (Semaglutide-Weight Management) Inject 0.25 mg under the skin once a week. (Patient not taking: Reported on 01/07/2024) 2 mL 0 Pramipexole Dihydrochloride 0.125 MG Oral Tablet (Mirapex) [...] DAY IN THE MORNING 90 Tablet 3 Current Facility-Administered Medications Medication Dose Route Frequency Provider Last Rate Last Admin Hylan (Synvisc) inj 16 mg 16 mg Intra-Articular Q Week Herve Valera PA-C 16 mg at 01/13/24 1419 O: Blood pressure 156/82, pulse 84, temperature 36.2 C (97.1 F), weight 98.5 kg (217 lb 1.6 oz), SpO2 97%. She has raised inflammed skin at the base of her neck. No open drainnage A: Cellulitis and abscess of neck (Primary) - Cephalexin 500 MG Oral Capsule (Keflex); Take 1 Capsule by mouth in the morning and 1 Capsule at noon and 1 Capsule before bedtime. Do all this for 10 days. - Mupirocin 2 % External Ointment (Bactroban); Apply topically to affected area 3 times a day for 14 days. To affected area for up to 14 days. Follow Up: Return if symptoms worsen or fail to improve. documented in this encounter Plan of Treatment Upcoming Encounters Date Type Department Care Team (Late st Contact Info) Description 01/20/2024 11:00 AM EDT Office Visit Orthopaedics [facility] [address] [place] [address] Herve Valera PA-C [address] [place] [address] 01/24/2024 11:00 AM EDT Anticoagulation Pharmacy, [address] [place] [address] [place] [address] 01/27/2024 10:30 AM EDT Office Visit Orthopaedics [facility] 132 [facility] [place] [address] Herve Valera PA-C [address] [place] [address] 02/03/2024 3:30 PM EDT Cardiac Studies Cardiac Studies, [address] [place] [address] 02/08/2024 11:45 AM EDT Imaging Radiology [facility] 1st Floor, [address] [place] [address] 03/16/2024 9:00 AM EDT Imaging [facility] 2nd Floor Cardiology, [address] [place] [address] 03/17/2024 10:00 AM EDT Imaging [facility] 2nd Floor Cardiology, [address] [place] [address] 04/17/2024 11:00 AM EDT Office Visit Cardiology, [facility] 132 [facility] [place] [address] Daylin Diaz PA-C 132 [facility] [place] [address] 06/14/2024 1:40 PM EDT Office Visit Family Medicine [address] [place] [phone] Danika Chairez PA-C [address] [place] [address] [place] [address] 07/03/2024 11:40 AM EDT [facility] [address] [place] [address] Tami Garrett PA-C [address] [place] [address] 08/07/2024 1:00 PM EST Laboratory Laboratory [address] [place] [phone] [place] [address] 08/14/2024 2:00 PM EST Office Visit Hematology/Oncology [facility] [address] [place] [phone] Jeanette Arellano MD [address] [place] [address] 08/23/2024 2:55 PM EST [facility] [address] [place] [address] Bay Ferreira MD [address] [place] [address] Nurse Zach Hernandez [address] [place] [address] 12/19/2024 1:40 PM EDT Office Visit Family Medicine [address] [place] [phone] Yoav Kong MD [address] [place] [address] [place] [address] 01/09/2025 10:30 AM EDT Office Visit Sleep Disorders Ctr [facility] [address] [place] [phone] Yara Beck CRNP [address] [place] [address] Scheduled Procedures Name Priority Associated Diagnoses Date/Ti me COLONOSCOPY FLEXIBLE PROXIMAL DIAGNOSTIC Recall Colon cancer screening Health Maintenance Due Date Last Done Comments Depression Screening 03/28/2022 03/28/2021 DTaP,Tdap,and Td Vaccines (2 - Td or Tdap) 06/14/2022 06/14/2012, 09/27/2005 CKD PHOS USE SMARTSET 78297 06/10/202405/22, 06/23/2022, 07/21/2021, Additional history exists GFR 07/08/2024 01/07/2024, 05/22, 10/16/2022, Additional history exists CKD HGB USE SMARTSET 12064 01/06/202501/06, 06/10/2023, 06/10/2023, Additional history exists Albumin/Creatinine [...] as of this encounter Visit Diagnoses Diagnosis Cellulitis and abscess of neck- Primary documented in this encounter Advance Directives Documents on File Type Date Recorded Patient Medical Collector Expl ruben Advance Directives and Karrie mata Will 05/20/2016 ADVANCE DIRECTIVE Power of Stump Blower 05/20/2016 POWER OF A TTORNEY Latest Code Status on File Code Status Date Activated Date Inactivated Comments Full Code 08/14/2008 10:37 AM 08/14/2008 10:38 AM Care Teams Roving Or Yarn Color Checker Relationship Specialty Start Date End Date Yoav Kong MD [address] [place] [address] [place] [address] PCP - General Family Medicine 04/09/14 documented as of this encounter
--- OUTSIDE RECORDS SUMMARY | 2024-06-16 04:14 | External Medical Summary ---
Author Name Unknown Address Unknown Organization : Laboratory Report Ordering Provider Test Date Status PIERO RIVERA 01/24/2024 11:04:01 Final Therapeutic ranges for non-o perative patients:
Prophylaxsis/treatment of DVT: (Range:2.0-3.0)
Treatment of pulmonary embolism:(Range:2.0-3.0)
Prevention of systemic embolism from:
-tissue heart valves
-acute myocardial infarction
-valvular heart disease
-atrial fibrillation
(Range: 2.0-3.0)
Mechanical prosthetic valves: (Range: 2.5-3.5) Observation Date Value Abnormality Reference (Units ) Status INR in Capillary blood by Coagulation assay 01/24/2024 11:04:01 1.8 (INR) Final Performing Location
--- OUTSIDE RECORDS SUMMARY | 2024-06-16 04:14 | External Medical Summary | Summary of Care ---
Author Name Unknown Organization [facility] Address [address] [facility] [address] Phone [phone] Care Team Providers Care Molder Machine Tender Name Role Phone Yoav Kong MD Primary Care Provide r Reason for Visit * Reason Comments Follow Up R knee Encounter Details Date Type Department Care Team (Late st Contact Info) Description 01/20/2024 11:00 AM EDT Office Visit Orthopaedics [facility] 132 [facility] [place] [address] Herve Valera PA-C [address] [place] [...] kidney disease 07/29/2020 Overview: Per CKD protocol Quaker or spiritual beliefs affecting medical care 05/25/2019 [...] This chart was completed in part utilizing [employer] Speech Voice Recognition Software. Grammatical errors, random [...] Description 01/24/2024 11:00 AM EDT Anticoagulation Pharmacy, [address] [place] [address] [place] [address] 01/27/2024 10:30 AM EDT Office Visit Orthopaedics [facility] 132 [facility] [place] [address] Herve Valera PA-C [address] [place] [address] 02/03/2024 3:30 PM EDT Cardiac Studies Cardiac Studies, [facility] [place] [address] 02/08/2024 11:45 AM EDT Imaging Radiology [facility] 1st Floor, [place] [facility] [place] [address] 03/16/2024 9:00 AM EDT Imaging [facility] 2nd Floor Cardiology, [address] [place] [address] 03/17/2024 10:00 AM EDT Imaging [facility] 2nd Floor Cardiology, [place] [facility] [place] [address] 04/17/2024 11:00 AM EDT Office Visit Cardiology, [facility] [place] [address] Daylin Diaz PA-C [address] [place] [address] 06/14/2024 1:40 PM EDT Office Visit Family Medicine [address] [place] [phone] Danika Chairez PA-C [address] [place] [address] [place] [address] 07/03/2024 11:40 AM EDT Office Visit Nutrition & Weight Management, [facility] [place] [address] Tami Garrett PA-C [address] [place] [address] 08/07/2024 1:00 PM EST Laboratory Laboratory [address] [place] [phone] [place] [address] 08/14/2024 2:00 PM EST Office Visit Hematology/Oncology [facility] 200 [facility] [place] [phone] Jeanette Arellano MD 200 [facility] [place] [address] 08/23/2024 2:55 PM EST Office Visit Urogynecology [facility] [address] [place] [address] Bay Ferreira MD [address] [place] [address] Nurse Zach Hernandez [address] [place] [address] 12/19/2024 1:40 PM EDT Office Visit Family Medicine [address] [place] [phone] Yoav Kong MD [address] [place] [address] [place] [address] 01/09/2025 10:30 AM EDT Office Visit Sleep Disorders Ctr Shayna Hernadnez [place] 132 [facility] [place] [phone] Yara Beck CRNP [address] [place] [address] Scheduled Orders Name Type Priority Associated Diagnoses [...] 06/14/2022 06/14/2012, 09/27/2005 CKD PHOS USE SMARTSET 69393 06/10/202405/22, 06/23/2022, 07/21/2021, Additional history exists GFR 07/08/2024 01/07/2024, 05/22, 10/16/2022, Additional history exists CKD HGB USE SMARTSET 34011 01/06/202501/06, 06/10/2023, 06/10/2023, Additional history exists Albumin/Creatinine [...] pain, unspecified chronicity documented in this encounter Advance Directives Documents on File Type Date Recorded Patient Senior Db2 Systems Programmer Expl anation Advance Directives and Karrie Gutierrez 05/20/2016 ADVANCE DIRECTIVE Power of Turbine Mechanic 05/20/2016 POWER OF A TTORNEY Latest Code Status on File Code Status Date Activated Date Inactivated Comments Full Code 08/14/2008 10:37 AM 08/14/2008 10:38 AM Care Teams Molder Machine Tender Relationship Specialty Start Date End Date Yoav Kong MD [address] [place] [address] [place] [phone] PCP - General Family Medicine 04/09/14 documented as of this encounter
--- OUTSIDE RECORDS SUMMARY | 2024-06-16 04:15 | External Medical Summary | Summary of Care ---
Author Name Unknown Organization [facility] Address [address] [place] [place] [address] Phone [phone] Care Team Providers Care Powerhouse Operator Name Role Phone Yoav Kong MD Primary Care Provide r Reason for Visit * Reason Comments EMG Encounter Details Date Type Department Care Team (Late st Contact Info) Description 01/13/2024 2:05 PM EDT NeuroDiagnostic Study Neurophysiology [facility] [address] [facility] [place] [phone] Donald Sevilla, DO [address] [place] [address] Arrived Allergies Active Allergy Reactions Criticality Noted Date [...] as of this encounter (statuses as of 01/13/2024) Medications Medication Sig Dispensed Refills Start Date [...] pulmonary embolism,Factor V Leiden (HCC),Anticoagulation management encounter,intermediate designer current use of anticoagulant therapy,Venous thrombosis TAKE [...] EVERY DAY 90 Tablet 2 4 Active Wegovy 0.25 MG/0.5ML Subcutaneous Solution Auto-injector (Semaglutide-Weight Management)Indication s:Morbid obesity due to excess calories ([facility]) Inject 0.25 mg under the skin once a week. 2 mL 0 4 Active Additional Information Patient not taking.Reported on 01/07/2024 Pramipexole Dihydrochloride 0.125 MG Oral Tablet (Mirapex)Indications: [...] THE MORNING 90 Tablet 3 4 Active Hospital, Clinic, or Other Facility Administered Medication Ordered Dose Route Frequency Start Date End Date Status Hylan (Synvisc) inj 16 mgIndications:Primary osteoarthritis of right knee 16 mg IX QWEEK 07/08/2023 Active documented as of this encounter (statuses as of 01/13/2024) Active Problems Problem Noted Date Diagnosed Date [...] kidney disease 07/29/2020 Overview: Per CKD protocol Cheondoism or spiritual beliefs affecting medical care 05/25/2019 [...] as of this encounter (statuses as of 01/13/2024) Resolved Problems Problem Noted Date Diagnosed Date [...] as of this encounter (statuses as of 01/13/2024) Immunizations Name Administration Dates Next Due COVID-19 [...] Donald Sevilla, - 01/13/2024 2:[address] [facility] Neurophysiology Laboratory Electromyography Report Name: Linette Trujillo [...] raw data or the scanned document in Roundrate. Reference values are from the [facility] normative data guidelines that are attached at [...] raw data or the scanned document in Roundrate. The study was done with a concentric needle examination. Donald Sevilla DO documented in this encounter Plan of Treatment Upcoming Encounters Date Type Department Care Team (Late st Contact Info) Description 01/19/2024 8:30 AM EDT Laboratory Laboratory [address] [place] [phone] [place] [address] 01/20/2024 11:00 AM EDT Office Visit Orthopaedics [facility] [address] [place] [address] Herve Valera PA-C [address] [place] [address] 01/24/2024 11:00 AM EDT Anticoagulation Pharmacy, [address] [place] [address] [place] [address] 01/27/2024 10:30 AM EDT Office Visit [facility] [address] [place] [address] Herve Valera PA-C [address] [place] [address] 02/03/2024 3:30 PM EDT Cardiac Studies Cardiac Studies, [facility] 132 [facility] [place] [address] 03/16/2024 9:00 AM EDT Imaging [facility] 2nd Floor [facility], [place] [facility] [place] [address] 03/17/2024 10:00 AM EDT Imaging [facility] 2nd Floor Cardiology, [place] [address] [place] [place] [address] 04/17/2024 11:00 AM EDT Office Visit Cardiology, [facility] [place] [address] Daylin Diaz PA-C [address] [place] [address] 06/14/2024 1:40 PM EDT Office Visit Family Medicine [address] [place] [phone] Danika Chairez PA-C [address] [place] [address] [place] [address] 07/03/2024 11:40 AM EDT Office Visit Nutrition & Weight Management, [facility] [address] [place] [address] Tami Garrett PA-C [address] [place] [address] 08/07/2024 1:00 PM EST Laboratory Laboratory [address] [place] [phone] [place] [address] 08/14/2024 2:00 PM EST Office Visit Hematology/Oncology [facility] [place] [address] [place] [phone] Jeanette Arellano MD [address] [place] [address] 08/23/2024 2:55 PM EST Office Visit Urogynecology [facility] [address] [place] [address] Bay Ferreira MD [address] [place] [address] Nurse Zach Hernandez [address] [place] [address] 12/19/2024 1:40 PM EDT Office Visit Family Medicine [address] [place] [phone] Yoav Kong MD [address] [place] [address] [place] [address] 01/09/2025 10:30 AM EDT Office Visit Sleep Disorders Ctr Shayna Hernandez [place] [address] [place] [phone] Yara Beck CRNP [address] [place] [address] Scheduled Procedures Name Priority Associated Diagnoses Date/Ti me COLONOSCOPY FLEXIBLE PROXIMAL DIAGNOSTIC Recall Colon cancer screening Health Maintenance Due Date Last Done Comments Depression Screening 03/28/2022 03/28/2021 DTaP,Tdap,and Td Vaccines (2 - Td or Tdap) 06/14/2022 06/14/2012, 09/27/2005 Albumin/Creatinine Ratio 12/12/2023 023, 12/16/2021, 11/11/2021, Additional history exists CKD PHOS USE SMARTSET 76332 06/10/202405/22, 06/23/2022, 07/21/2021, Additional history exists GFR 07/08/2024 01/07/2024, 05/22, 10/16/2022, Additional history exists CKD HGB USE SMARTSET 67582 01/06/202501/06, 06/10/2023, 06/10/2023, Additional history exists TSH 01/06/2025 01/07/2024, 05/22, 12/10/2022, Additional history exists DXA Scan 06/11/2027 06/11/2020, [...] Documents on File Type Date Recorded Patient Churn Operator Margarine Expl anation Advance Directives and Livin g Will 05/20/2016 ADVANCE DIRECTIVE Power of Armed Security Professional 05/20/2016 POWER OF A TTORNEY Latest Code Status on File Code Status Date Activated Date Inactivated Comments Full Code 08/14/2008 10:37 AM 08/14/2008 10:38 AM Care Teams Powerhouse Operator Relationship Specialty Start Date End Date Yoav Kong MD [address] [place] [address] [place] [address] PCP - General Family Medicine 04/09/14 documented as of this encounter
--- OUTSIDE RECORDS SUMMARY | 2024-06-16 04:15 | External Medical Summary | Summary of Care ---
Author Name Unknown Organization [facility] Address [address] [facility] [place] [address] Phone [phone] Care Team Providers Care Broadcast Checker Name Role Phone Yoav Kong MD Primary Care Provide r Reason for Visit * Reason Comments Follow Up Right knee injection Encounter Details Date Type Department Care Team (Late st Contact Info) Description 01/13/2024 11:00 AM EDT Office Visit Orthopaedics [facility] [address] [facility] [place] [address] Herve Valera PA-C [address] [place] [...] of pulmonary embolism,Factor V Leiden (HCC),Anticoagulation management encounter,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 Chief Complaint Patient presents with Follow Up Right knee injection HPI: Linette is a very pleasant 78-year-old female who presents for initiation of repeat Synvisc viscosupplementation series for the right knee for treatment of her primary osteoarthritis and chronic pain. Her last injection series was roughly 6 months ago. She reports relief from her previous injections, however states pain has began to return. She is interested in repeat viscosupplementation series. Review of patient's allergies indicates: Allergen Reactions [...] Week Herve Valera PA-C 16 mg at 07/08/23 1239 Hylan G-F 20 (Synvisc) inj 16 mg 16 mg Intra-Articular Once Herve Valera PA-C ASSESSMENT: Primary osteoarthritis of right knee (Primary) - ARTHROCENT ASP &/OR INJ MAJOR JX/BURSA W/O US - Hylan G-F 20 (Synvisc) inj 16 mg Right knee pain, unspecified chronicity - ARTHROCENT ASP &/OR INJ MAJOR JX/BURSA W/O US - Hylan G-F 20 (Synvisc) inj 16 mg Follow Up: Return in about 1 week (around 01/20/2024). PLAN: We discussed repeat Synvisc viscosupplementation series for the right knee today. Patient is in agreement to proceed with such. Her injection was very well tolerated today. I advised against excessive physical activity today, but patient may resume activities as normal tomorrow. I would like patient to follow up in 1-2 weeks for repeat Synvisc injection for the right knee. Patient was certainly urged to contact clinic [...] This chart was completed in part utilizing [employer] Speech Voice Recognition Software. Grammatical errors, random word insertions, pronoun errors, and incomplete sentences are an occasional consequence of this system due to software limitations, ambient noise, and hardware issues. Any formal questions or concerns about the content, text, or information contained within the body of this dictation should be directly addressed to the provider for clarification. Herve Valera PA-C 01/13/2024 11:18 AM documented in this encounter Nursing Notes * Nallely Bhagat ATC - 01/13/2024 10:44 AM EDT Right knee synvesic injection. First injection. Reports that she has been looking forward to injection due to pain. Reports that injection series is helpful. documented in this encounter Plan of Treatment Upcoming Encounters Date Type Department Care Team (Late st Contact Info) Description 01/13/2024 2:05 PM EDT NeuroDiagnostic Study Neurophysiology [address] [place] [address] Donald Sevilla, DO [facility] [place] [address] 01/19/2024 8:30 AM EDT Laboratory Laboratory [address] [place] [phone] [address] [place] [address] 01/20/2024 11:00 AM EDT Office Visit Orthopaedics [facility] [address] [place] [address] Herve Valera PA-C [address] [place] [address] 01/24/2024 11:00 AM EDT Anticoagulation Pharmacy, [address] [place] [address] [place] [address] 01/27/2024 10:30 AM EDT Office Visit Orthopaedics [facility] 132 [facility] [place] [address] Herve Valera PA-C [address] [place] [address] 02/03/2024 3:30 PM EDT Cardiac Studies Cardiac Studies, [facility] 132 [facility] [place] [address] 03/16/2024 9:00 AM EDT Imaging [facility] 2nd Floor Cardiology, [address] [place] [address] 03/17/2024 10:00 AM EDT Imaging [facility] 2nd Floor Cardiology, [address] [place] [address] 04/17/2024 11:00 AM EDT Office Visit Cardiology, [facility] 132 [facility] [place] [address] Daylin Diaz PA-C [address] [place] [address] 06/14/2024 1:40 PM EDT Office Visit Family Medicine [address] [place] [phone] Danika Chaney PA-C [address] [place] [address] [place] [address] 07/03/2024 11:40 AM EDT Office Visit Nutrition & [facility] Management, [facility] [address] [place] [address] Tami Garrett PA-C [address] [place] [address] 08/07/2024 1:00 PM EST Laboratory Laboratory [address] [place] [phone] [place] [address] 08/14/2024 2:00 PM EST Office Visit Hematology/Oncology [facility] [address] [place] [phone] Jeanette Arellano MD [address] [place] [address] 08/23/2024 2:55 PM EST Office Visit Urogynecology [facility] [address] [place] [address] Bay Ferreira MD [address] [place] [address] Nurse Zach Hernandez [address] [place] [address] 12/19/2024 1:40 PM EDT Office Visit Family Medicine [address] [place] [phone] Yoav Kong MD [address] [place] [address] [place] [address] 01/09/2025 10:30 AM EDT Office Visit Sleep Disorders Ctr [facility] [address] [place] [phone] Yara Beck CRNP [address] [place] [address] Scheduled Orders Name Type Priority Associated Diagnoses Orde r Schedule ARTHROCENT ASP &/OR INJ MAJOR JX/BURSA W/O US Procedures Routine Primary osteoarthritis of right knee Right knee pain, unspecified chronicity Ordered: 01/13/2024 Scheduled Procedures Name Priority Associated Diagnoses Date/Ti me COLONOSCOPY FLEXIBLE PROXIMAL DIAGNOSTIC Recall Colon cancer screening Health Maintenance Due Date Last Done Comments Depression Screening 03/28/2022 03/28/2021 DTaP,Tdap,and Td Vaccines (2 - Td or Tdap) 06/14/2022 06/14/2012, 09/27/2005 Albumin/Creatinine Ratio 12/12/2023 023, 12/16/2021, 11/11/2021, Additional history exists CKD PHOS USE SMARTSET 11683 06/10/202405/22, 06/23/2022, 07/21/2021, Additional history exists GFR 07/08/2024 01/07/2024, 05/22, 10/16/2022, Additional history exists CKD HGB USE SMARTSET 73451 01/06/202501/06, 06/10/2023, 06/10/2023, Additional history exists TSH [...] chronicity documented in this encounter Administered Medications Inactive Administered Medications - up to 3 most recent administrations Medication Order MAR Action Action Date Dose Rate Site Hylan G-F 20 (Synvisc) inj 16 mg 16 mg, Intra-Articular, ONCE, On Emelina 01/13/24 at 1215, For 1 dose Given 01/13/2024 11:47 AM EDT 16 mg Knee Right documented in this encounter Advance Directives Documents on File Type Date Recorded Patient Table Maker Expl anation Advance Directives and Karrie mata Will 05/20/2016 ADVANCE DIRECTIVE Power of Supreme Court Justice 05/20/2016 POWER OF A TTORNEY Latest Code Status on File Code Status Date Activated Date Inactivated Comments Full Code 08/14/2008 10:37 AM 08/14/2008 10:38 AM Care Teams Broadcast Checker Relationship Specialty Start Date End Date Yoav Kong MD [address] [place] [address] [place] [address] PCP - General Family Medicine 04/09/14 documented as of this encounter
--- OUTSIDE RECORDS SUMMARY | 2024-06-16 04:15 | External Medical Summary | Summary of Care ---
Author Name Unknown Organization [facility] Address [address] [facility] [place] [address] Phone [phone] Care Team Providers Care Genetic Supervisor Name Role Phone Yoav Kong MD Primary Care Provide r Reason for Visit * Reason Comments Follow Up Right knee injection Encounter Details Date Type Department Care Team (Late st Contact Info) Description 01/13/2024 11:00 AM EDT Office Visit Orthopaedics [facility] [address] [facility] [place] [address] Herve Valera PA-C [address] [place] [...] of pulmonary embolism,Factor V Leiden (HCC),Anticoagulation management encounter,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 Grammatical errors, random [...] Description 01/19/2024 8:30 AM EDT Laboratory Laboratory [address] [place] [phone] [facility] [place] [address] [place] [address] 01/20/2024 11:00 AM EDT Office Visit Orthopaedics [facility] 132 [facility] [place] [address] Herve Valera PA-C [address] [place] [address] 01/24/2024 11:00 AM EDT Anticoagulation Pharmacy, [address] [place] [address] [place] [address] 01/27/2024 10:30 AM EDT Office Visit Orthopaedics [address] [place] [address] Herve Valera PA-C [address] [place] [address] 02/03/2024 3:30 PM EDT Cardiac Studies Cardiac Studies, [facility] 132 [facility] [place] [address] 03/16/2024 9:00 AM EDT Imaging [facility] 2nd Floor Cardiology, [address] [place] [address] 03/17/2024 10:00 AM EDT Imaging [facility] 2nd Floor Cardiology, [address] [place] [address] 04/17/2024 11:00 AM EDT Office Visit Cardiology, [address] [place] [address] Daylin Diaz PA-C 132 [facility] [place] [address] 06/14/2024 1:40 PM EDT Office Visit Family Medicine [address] [place] [phone] Danika Chairez PA-C [address] [place] [address] [place] [address] 07/03/2024 11:40 AM EDT Office Visit Nutrition & Weight Management, [facility] 132 [facility] [place] [address] Tami Garrett PA-C [address] [place] [address] 08/07/2024 1:00 PM EST Laboratory Laboratory [address] [place] [phone] [place] [address] 08/14/2024 2:00 PM EST Office Visit Hematology/Oncology [facility] [place] [address] [place] [phone] Jeanette Arellano MD [address] [place] [address] 08/23/2024 2:55 PM EST Office Visit Urogynecology Nico Hernandez [address] [place] [address] Bay Ferreira MD [address] [place] [address] Nurse Zach Hernandez [address] [place] [address] 12/19/2024 1:40 PM EDT Office Visit Family Medicine [address] [place] [phone] Yoav Kong MD [address] [place] [address] [place] [address] 01/09/2025 10:30 AM EDT Office Visit Sleep Disorders Ctr Shayna Hernandez [place] [address] [place] [phone] Yara Beck CRNP [address] [place] [address] Scheduled Orders Name Type Priority Associated Diagnoses [...] Additional history exists CKD PHOS USE SMARTSET 66822 06/10/202405/22, 06/23/2022, 07/21/2021, Additional history exists GFR 07/08/2024 01/07/2024, 05/22, 10/16/2022, Additional history exists CKD HGB USE SMARTSET 83450 01/06/202501/06, 06/10/2023, 06/10/2023, Additional history exists TSH [...] Emelina 07/08/23 at 1315, Until Discontinued Given 01/13/2024 2:19 PM EDT 16 mg Knee Right Given 07/08/2023 12:39 PM EDT 16 mg K nee Right Inactive Administered Medications - up to 3 most recent administrations Medication Order MAR Action Action Date Dose Rate Site Hylan G-F 20 (Synvisc) inj 16 mg 16 mg, Intra-Articular, ONCE, On Emelina 01/13/24 at 1215, For 1 dose Given 01/13/2024 11:47 AM EDT 16 mg Knee Right documented in this encounter Advance Directives Documents on File Type Date Recorded Patient Fashion Marketer Expl anation Advance Directives and Livin g Will 05/20/2016 ADVANCE DIRECTIVE Power of It Application Development Manager 05/20/2016 POWER OF A TTORNEY Latest Code Status on File Code Status Date Activated Date Inactivated Comments Full Code 08/14/2008 10:37 AM 08/14/2008 10:38 AM Care Teams Genetic Supervisor Relationship Specialty Start Date End Date Yoav Kong MD [address] [place] [address] [place] [address] PCP - General Family Medicine 04/09/14 documented as of this encounter
--- OUTSIDE RECORDS SUMMARY | 2024-06-16 04:15 | External Medical Summary | Summary of Care ---
Author Name Unknown Organization [facility] Address [address] [place] [address] Phone [phone] Care Team Providers Care Internet Architect Name Role Phone Yoav Kong MD Primary Care Provide r Reason for Visit * Reason Comments Outpatient Testing Encounter Details Date Type Department Care Team (Late st Contact Info) Description 01/19/2024 8:30 AM EDT Laboratory Laboratory [address] [place] [phone] [place], Lab [address] [place] [address] Statin intolerance; Dyslipidemia, goal LDL below 100; Chronic kidney disease, stage 3a (HCC); Acquired hypothyroidism Allergies Active Allergy Reactions Criticality Noted Date [...] as of this encounter (statuses as of 01/19/2024) Medications Medication Sig Dispensed Refills Start Date [...] of pulmonary embolism,Factor V Leiden (HCC),Anticoagulation management encounter,alf current use of anticoagulant therapy,Venous thrombosis TAKE [...] as of this encounter (statuses as of 01/19/2024) Active Problems Problem Noted Date Diagnosed Date [...] as of this encounter (statuses as of 01/19/2024) Resolved Problems Problem Noted Date Diagnosed Date [...] as of this encounter (statuses as of 01/19/2024) Immunizations Name Administration Dates Next Due COVID-19 mRNA, LNP-s, No Pre serve, 2-Dose Series (Moderna) 01/27/2022,07/15/2021,11/29/2020,02/12 /2021 COVID-19, MRNA-LNP, 23-24, P F, 30 MCG/0.3 [...] 9:40 AM EDT Office Visit Family Medicine [address] [place] [phone] Herve Worley MD [address] [place] [address] [place] [address] 01/20/2024 11:00 AM EDT Office Visit Orthopaedics [place] [address] [address] [place] [address] Herve Valera PA-C [address] [place] [address] 01/24/2024 11:00 AM EDT Anticoagulation Pharmacy, [address] [place] [address] [place] [address] 01/27/2024 10:30 AM EDT Office Visit Orthopaedics [facility] [place] [address] Herve Valera PA-C [address] [place] [address] 02/03/2024 3:30 PM EDT Cardiac Studies Cardiac Studies, [facility] [place] [address] 03/16/2024 9:00 AM EDT Imaging [facility] 2nd Floor Cardiology, [place] [facility] [place] [address] 03/17/2024 10:00 AM EDT Imaging [facility] 2nd Floor Cardiology, [place] Carl [place] [address] 04/17/2024 11:00 AM EDT Office Visit Cardiology, [facility] [place] [address] Daylin Mast PA-C [address] [place] [address] 06/14/2024 1:40 PM EDT Office Visit Family Medicine [address] [place] [phone] Danika Chairez PA-C [address] [place] [address] [place] [address] 07/03/2024 11:40 AM EDT Office Visit Nutrition & Weight Management, [facility] [address] [place] [address] Tami Garrett PA-C [address] [place] [address] 08/07/2024 1:00 PM EST Laboratory Laboratory [address] [place] [phone] [address] [place] [address] 08/14/2024 2:00 PM EST Office Visit Hematology/Oncology [facility] 200 [facility] [place] [phone] Jeanette Arellano MD 200 [facility] [place] [address] 08/23/2024 2:55 PM EST Office Visit Urogynecology [facility] [address] [place] [address] Bay Ferreira MD [address] [place] [address] Nurse [facility] [address] [place] [address] 12/19/2024 1:40 PM EDT Office Visit Family Medicine [address] [place] [phone] Yoav Kong MD [address] [place] [address] [place] [address] 01/09/2025 10:30 AM EDT Office Visit Sleep Disorders Ctr [facility] [address] [place] [phone] Yara Beck CRNP [address] [place] [address] Pending Results Name Type Priority Associated Diagnoses Date /Time LIPID PANEL WITH DIRECT LDL IF TG IS HIGH Lab Routine Statin intolerance Dyslipidemia, goal LDL below 100 01/19/2024 8:26 AM EDT ALBUMIN / CREATININE RATIO, URINE Lab Routine Chronic kidney disease, stage 3a (HCC) 01/19/2024 8:26 AM EDT TSH WITH FREE T4 IF INDICATED Lab Routine Acquired hypothyroidism 01/19/2024 8:26 AM EDT Scheduled Procedures Name Priority Associated Diagnoses Date/Ti me COLONOSCOPY FLEXIBLE PROXIMAL DIAGNOSTIC Recall Colon cancer screening Health Maintenance Due Date Last Done Comments Depression Screening 03/28/2022 03/28/2021 DTaP,Tdap,and Td Vaccines (2 - Td or Tdap) 06/14/2022 06/14/2012, 09/27/2005 Albumin/Creatinine Ratio 12/12/2023 023, 12/16/2021, 11/11/2021, Additional history exists CKD PHOS USE SMARTSET 74727 06/10/202405/22, 06/23/2022, 07/21/2021, Additional history exists GFR 07/08/2024 01/07/2024, 05/22, 10/16/2022, Additional history exists CKD HGB USE SMARTSET 14766 01/06/202501/06, 06/10/2023, 06/10/2023, Additional history exists TSH [...] as of this encounter Visit Diagnoses Diagnosis Statin intolerance Other drug allergy Dyslipidemia, goal LDL below 100 Other and unspecified hyperlipidemia Chronic kidney disease, stage 3a (HCC) Acquired hypothyroidism Unspecified hypothyroidism documented in this encounter Advance Directives Documents on File Type Date Recorded Patient Fiber Technician Expl anation Advance Directives and Livin g Will 05/20/2016 ADVANCE DIRECTIVE Power of Director Trial 05/20/2016 POWER OF A TTORNEY Latest Code Status on File Code Status Date Activated Date Inactivated Comments Full Code 08/14/2008 10:37 AM 08/14/2008 10:38 AM Care Teams Internet Architect Relationship Specialty Start Date End Date Yoav Kong MD [address] [place] [address] [place] [address] PCP - General Family Medicine 04/09/14 documented as of this encounter
--- OUTSIDE RECORDS SUMMARY | 2024-06-16 04:15 | External Medical Summary ---
Author Name Unknown Address Unknown Organization K01:[facility] [place] [address] [place] [address] Laboratory Report Ordering Provider Test Date Status YOEL SHELDON 01/19/2024 08:26:29 Final Observation Date Value Abnormality Reference (Units ) Status TSH 01/19/2024 08:26:29 2.08 0.27-4.20 (uIU/mL) Final Performing Location LABORATORY C - [address] [place] [address]
--- OUTSIDE RECORDS SUMMARY | 2024-06-16 04:15 | External Medical Summary | Summary of Care ---
Author Name Unknown Organization [facility] Address [address] [place] [address] Phone [phone] Care Team Providers Care Appliance Repair Technician Name Role Phone Yoav Kong MD Primary Care Provide r Reason for Visit * Reason Comments Outpatient Testing Encounter Details Date Type Department Care Team (Late st Contact Info) Description 01/19/2024 8:30 AM EDT Laboratory Laboratory [address] [place] [phone] [place], Lab [address] [place] [address] Statin intolerance; Dyslipidemia, goal LDL below 100; [...] kidney disease 07/29/2020 Overview: Per CKD protocol Confucianism or spiritual beliefs affecting medical care 05/25/2019 [...] 01/20/2024 11:00 AM EDT Office Visit Orthopaedics [facility] [address] [place] [address] Herve Valera PA-C [address] [place] [address] 01/24/2024 11:00 AM EDT Anticoagulation Pharmacy, [address] [place] [address] [place] [address] 01/27/2024 10:30 AM EDT Office Visit [facility]opaedics [facility] [place] [address] Herve Valera PA-C [address] [place] [address] 02/03/2024 3:30 PM EDT Cardiac Studies Cardiac Studies, [facility] 132 [facility] [place] [address] 03/16/2024 9:00 AM EDT Imaging [facility] 2nd Floor Cardiology, [address] [place] [address] 03/17/2024 10:00 AM EDT Imaging [facility] 2nd Floor Cardiology, [place] [facility] [place] [address] 04/17/2024 11:00 AM EDT Office Visit Cardiology, [facility] 132 [facility] [place] [address] Daylin Diaz PA-C [address] [place] [address] 06/14/2024 1:40 PM EDT Office Visit Family Medicine [address] [place] [phone] Danika Chairez PA-C [address] [place] [address] [place] [address] 07/03/2024 11:40 AM EDT Office Visit Nutrition & Weight Management, [facility] [address] [place] [address] Tami Garrett PA-C [address] [place] [address] 08/07/2024 1:00 PM EST Laboratory Laboratory [address] [place] [phone] [place] [address] 08/14/2024 2:00 PM EST Office Visit Hematology/Oncology [facility] [address] [place] [phone] Jeanette Arellano MD [address] [place] [address] 08/23/2024 2:55 PM EST Office Visit Urogynecology [facility] [address] [place] [address] Bay Ferreira MD [address] [place] [address] HernandezNurse Zach williamson [facility] [address] [place] [address] 12/19/2024 1:40 PM EDT Office Visit Family Medicine [address] [place] [phone] Yoav Kong MD [address] [place] [address] [place] [address] 01/09/2025 10:30 AM EDT Office Visit Sleep Disorders Ctr [facility] [address] [place] [phone] Yara Beck CRNP [address] [place] [address] Pending Results Name Type Priority Associated Diagnoses [...] Additional history exists CKD PHOS USE SMARTSET 05832 06/10/202405/22, 06/23/2022, 07/21/2021, Additional history exists GFR 07/08/2024 01/07/2024, 05/22, 10/16/2022, Additional history exists CKD HGB USE SMARTSET 04832 01/06/202501/06, 06/10/2023, 06/10/2023, Additional history exists TSH [...] Documents on File Type Date Recorded Patient Erp Programmer Expl anation Advance Directives and Livin adolfo Will 05/20/2016 ADVANCE DIRECTIVE Power of Automation Machine Builder 05/20/2016 POWER OF A TTORNEY Latest Code Status on File Code Status Date Activated Date Inactivated Comments Full Code 08/14/2008 10:37 AM 08/14/2008 10:38 AM Care Teams Appliance Repair Technician Relationship Specialty Start Date End Date Yoav Kong MD [address] [place] [address] [place] [address] PCP - General Family Medicine 04/09/14 documented as of this encounter
--- OUTSIDE RECORDS SUMMARY | 2024-06-16 04:15 | External Medical Summary ---
Author Name Unknown Address Unknown Organization K01:[facility] [place] [address] [place] [address] Laboratory Report Ordering Provider Test Date Status YOEL SHELDON 01/19/2024 08:26:29 Final Normal: <30 mg/g creatinine< br/>High: 30-300 mg/g creatinine
Very High: >300 mg/g creatinine
Nephrotic: >2200 mg/g creatinine Observation Date Value Abnormality Reference (Units ) Status Albumin, Urine 01/19/2024 08:26:29 1.62 (mg/dL) Final Creatinine, Urine 01/19/2024 08:26:29 168 (mg/dL) Final Albumin/Creatinine [Mass Ratio] in Urine 01/19/2024 08:26:29 10 <30 (mg/g Creat) Final Performing Location [facility] [place] [address] [place] [address]
--- OUTSIDE RECORDS SUMMARY | 2024-06-16 04:15 | External Medical Summary | Summary of Care ---
Author Name Unknown Organization [facility] Address [address] [facility] [place] [place] [address] Phone [phone] Care Team Providers Care Editorial Director Name Role Phone Yoav Kong MD Primary Care Provide r Reason for Visit * Reason Comments Follow Up Right knee injection Encounter Details Date Type Department Care Team (Late st Contact Info) Description 01/13/2024 11:00 AM EDT Office Visit Orthopaedics [facility] [address] 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 Grammatical errors, random [...] Description 01/19/2024 8:30 AM EDT Laboratory Laboratory [address] [place] [phone] [facility] [address] [place] [address] 01/20/2024 11:00 AM EDT Office Visit Orthopaedics [facility] [address] [facility] [place] [address] Herve Valera PA-C [address] [place] [address] [place] [address] 01/24/2024 11:00 AM EDT Anticoagulation Pharmacy, [address] [place] [phone] [place] [address] 01/27/2024 10:30 AM EDT Office Visit Orthopaedics [address] [place] [address] Herve Valera PA-C [address] [place] [address] 02/03/2024 3:30 PM EDT Cardiac Studies Cardiac Studies, [facility] 132 [facility] [place] [address] 03/16/2024 9:00 AM EDT Imaging [facility] 2nd Floor Cardiology, [address] [place] [address] 03/17/2024 10:00 AM EDT Imaging [facility] 2nd Floor Cardiology, [address] [place] [address] 04/17/2024 11:00 AM EDT Office Visit Cardiology, [address] [place] [address] Daylin Diaz PA-C [address] [facility] [place] [address] 06/14/2024 1:40 PM EDT Office Visit Family Medicine [address] [place] [phone] Danika Chairez PA-C [address] [place] [address] [place] [address] 07/03/2024 11:40 AM EDT Office Visit Nutrition & Weight Management, [facility] [address] [facility] [place] [address] Tami Garrett PA-C [address] [place] [address] 08/07/2024 1:00 PM EST Laboratory Laboratory [address] [place] [phone] [place] [address] 08/14/2024 2:00 PM EST Office Visit Hematology/Oncology [facility] [place] [address] [place] [phone] Jeanette Arellano MD [address] [place] [address] 08/23/2024 2:55 PM EST Office Visit Urogynecology Nico Hernandez [address] [place] [address] Bay Ferreira MD [address] [place] [address] Nurse Zach Hernandez [address] [place] [address] 12/19/2024 1:40 PM EDT Office Visit Family Medicine [address] [place] [phone] Yoav Kong MD [address] [place] [address] [place] [address] 01/09/2025 10:30 AM EDT Office Visit Sleep Disorders Ctr Shayna Hernandez [place] [address] [place] [phone] Yara Beck CRNP [address] [place] [address] Scheduled Orders Name Type Priority Associated Diagnoses [...] Additional history exists CKD PHOS USE SMARTSET 94970 06/10/202405/22, 06/23/2022, 07/21/2021, Additional history exists GFR 07/08/2024 01/07/2024, 05/22, 10/16/2022, Additional history exists CKD HGB USE SMARTSET 01128 01/06/202501/06, 06/10/2023, 06/10/2023, Additional history exists TSH [...] Documents on File Type Date Recorded Patient Compliance Project Manager Expl anation Advance Directives and Livin g Will 05/20/2016 ADVANCE DIRECTIVE Power of Mophead Trimmer And Wrapper 05/20/2016 POWER OF A TTORNEY Latest Code Status on File Code Status Date Activated Date Inactivated Comments Full Code 08/14/2008 10:37 AM 08/14/2008 10:38 AM Care Teams Editorial Director Relationship Specialty Start Date End Date Yoav Kong MD [address] [place] [address] [place] [address] PCP - General Family Medicine 04/09/14 documented as of this encounter
--- OUTSIDE RECORDS SUMMARY | 2024-06-16 04:15 | External Medical Summary ---
Author Name Unknown Address Unknown Organization K01[place] [place] [address] [facility] [address] [place] [address] Laboratory Report Ordering Provider Test Date Status JENNIFER AGUILERA 01/19/2024 08:26:29 Final Observation Date Value Abnormality Reference (Units ) Status Triglyceride 01/19/2024 08:26:29 147 <=174 ( mg/dL) Final Triglyceride Reference Range s (mg/dL):
<150 Acceptable
150-174 Borderline high
175-499 High
>=500 Very high Cholesterol 01/19/2024 08:26:29 240 Above high normal <200 (mg/dL) Final Total Cholesterol Reference Ranges (mg/dL):
<200 Desirable
200-239 Borderline high
>=240 High HDL 01/19/2024 08:26:29 61 >49 (mg/dL ) Final HDL Cholesterol Reference Ra nges (mg/dL):
>=60 High (Desirable)
<50 Low (Undesirable) For Females
<40 Low (Undesirable) For Males NON-HDL CHOLESTEROL 01/19/2024 08:26:29 179 Above high normal <=159 (mg/dL) Final Non-HDL Cholesterol Referenc e Range (mg/dL):
<100 Target level for high risk ASCVD patient
<130 Optimal for general population
130-159 Near optimal for general population
160-189 Borderline High
190-219 High
>=220 Very High LDL, (calculated) 01/19/2024 08:26:29 150 Above high n ormal <=129 (mg/dL) Final LDL Cholesterol Reference Ra nges (mg/dL):
<70 Target level for high risk ASCVD patient
<100 Optimal for general population
100-129 Near optimal for general population
130-159 Borderline high
160-189 High
>=190 Very high Performing Location [facility] [place] [address] [facility] [place] [address]
--- OUTSIDE RECORDS SUMMARY | 2024-06-16 04:15 | External Medical Summary | Summary of Care ---
Author Name Unknown Organization [facility] Address [address] [place] [address] Phone [phone] Care Team Providers Care Revenue Stamp Clerk Name Role Phone Yoav Kong MD Primary Care Provide r Reason for Referral * Precert (Within 10 days (routine)) - Pending Review Specialty Diagnoses / Procedures Referred By Contac t Referred To Contact Radiology Diagnoses Palpitations Lightheadedness Dyspnea on exertion HTN, goal below 140/90 Nonspecific abnormal electrocardiogram (ECG) (EKG) Chest pain, unspecified type Procedures NM MYOCARD PERF IMG SPECT MULT STUDIES WITH PHARM INTERV Mary Verde CRNP [address] [place] [address] Referral ID Status Reason Start Date Expiration Date Visits Requested Visits Authorized [id number] Pending Review Precert 01/08/2024 999 999 * Precert (Within 10 days (routine)) - Pending Review Specialty Diagnoses / Procedures Referred By Contac t Referred To Contact Cardiac Studies Diagnoses Palpitations Lightheadedness Dyspnea on exertion Mitral valve prolapse Chest pain, unspecified type Procedures ECHO, COMPLETE (2D), TRANS-THORACIC Mary Verde CRNP [address] [place] [address] Referral ID Status Reason Start Date Expiration Date Visits Requested Visits Authorized [id number] Pending Review Precert 01/08/2024 999 999 Reason for Visit * Reason Comments Follow Up Encounter Details Date Type Department Care Team (Latest Contact Info) Description 01/07/2024 3:00 PM EDT Office Visit Cardiology, [facility] [address] [place] [address] Mary Verde CRNP [address] [place] [address] Chest pain, unspecified type*; Nonspecific abnormal electrocardiogram (ECG) (EKG); Palpitations; Lightheadedness; Dyspnea on exertion; Mitral valve prolapse; HTN, goal below 140/90; Dyslipidemia, goal LDL below 100; History of pulmonary embolism Allergies Active Allergy Reactions Criticality Noted Date [...] as of this encounter (statuses as of 01/15/2024) Medications Medication Sig Dispensed Refills Start Date End Date Status B-6 100 MG PO TABS 200mg daily 0 Activ e WOMENS MULTIVITAMIN PLUS PO TABS one daily 0 Active Magnesium Oxide 400 MG Capsule Take 1 Capsule by mouth in the morning. 0 09/17/20 15 Active Calcium Glycerophosphate 340 (65-50) MG (CA-P) TABS Take by mouth 1 Tablet daily . 0 Active NATURAL SUPPLEMENT Take by mouth daily. Whole daniela seeds, 1 scoop daily 0 Active latanoprost (XALATAN) 0.005 % ophthalmic solution Instill 1 Drop into both eyes at bedtime. 0 03/15/20 20 Active Loratadine 10 MG Oral [...] Tablet by mouth in the morning. 0 06/10/20 22 Active Biotin 1000 MCG Oral Tablet Chewable Take by mouth 5,000 mcg daily . 0 06/10/20 22 Active Folic Acid 800 MCG Oral Tablet Take 1 Tablet by mouth in the morning. 0 06/10/20 22 Active high fiber LIQD Take by mouth. 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,Venous thrombosis TAKE 4 MG (2 TABLETS) ON WEDNESDAYS TAKE 3 MG (1.5 TABLETS) ALL OTHER DAYS OR DIRECTED BY ANTICOAGULATION CLINIC 140 Tablet 3 04/05/20 23 Active Fluticasone Propionate 50 MCG/ACT Nasal Suspension (Flonase)Indication s:Protracted URI SPRAY 2 SPRAYS INTO EACH NOSTRIL EVERY DAY 48 mL 2 05/11/20 23 Active Pantoprazole Sodium 40 MG Oral Tablet Delayed Release (Protonix)Indicatio ns:Gastroesophageal reflux disease without esophagitis TAKE 1 TAB BY MOUTH DAILY 30 MINUTES BEFORE THE FIRST MEAL OF THE DAY 90 Tablet 3 05/31/20 23 Active Atenolol 25 MG Oral Tablet (Tenormin)Indicatio ns:HTN, goal below 140/90,Mitral valve disorder TAKE 1 TABLET BY MOUTH EVERY DAY 90 Tablet 3 07/22/20 23 Active Levothyroxine Sodium 50 MCG Oral [...] DAY 90 Tablet 2 12/17/19 24 Active Wegovy 0.25 MG/0.5ML Subcutaneous Solution Auto-injector (Semaglutide-Weight Management)Indicati ons:Morbid obesity due to excess calories (HCC) Inject 0.25 mg under the skin once a week. 2 mL 0 12/24/19 24 Active Additional Information Patient not taking.Reported on 01/07/2024 Doug-Sincere M10 10 MEQ Oral Tablet Extended Release (potassium chloride ER)Indications:Terry a TAKE 1 TABLET BY MOUTH EVERY DAY IN THE MORNING 90 Tablet 3 12/30/19 23 024 Discontinued Pramipexole Dihydrochloride 0.125 MG Oral Tablet (Mirapex)Indication s:Restless legs syndrome (RLS) TAKE 1 TABLET BY MOUTH 90 MINUTES PRIOR TO TYPICAL ONSET OF RESTLESS LEG SYMPTOMS 90 Tablet 3 03/30/20 23 024 Discontinued Torsemide 20 MG Oral Tablet (Demadex)Indication s:Diastolic dysfunction TAKE 1 TABLET BY MOUTH EVERY DAY IN THE MORNING 90 Tablet 1 08/16/20 23 024 Discontinued Hospital, Clinic, or Other Facility Administered Medication Ordered Dose Route Frequency Start Date End Date Status Hylan (Synvisc) inj 16 mgIndications:Primary osteoarthritis of right knee 16 mg IX QWEEK 07/08/2023 Active documented as of this encounter (statuses as of 01/15/2024) Active Problems Problem Noted Date Diagnosed Date [...] kidney disease 07/29/2020 Overview: Per CKD protocol Orthodoxy or spiritual beliefs affecting medical care 05/25/2019 [...] as of this encounter (statuses as of 01/15/2024) Resolved Problems Problem Noted Date Diagnosed Date [...] as of this encounter (statuses as of 01/15/2024) Immunizations Name Administration Dates Next Due COVID-19 [...] Sign Reading Time Taken Comments Blood Pressure 128/76 01/07/2024 2:59 PM EDT Pulse 86 01/07/2024 2:59 PM EDT Temperature - - Respiratory Rate - - Oxygen Saturation 97% 01/07/2024 2:59 PM EDT Inhaled Oxygen Concentration - - Weight 99.3 kg (219 lb) 01/07/2024 2:59 PM EDT Height - - Body Mass Index 40.71 01/07/2024 11:52 AM EDT documented in this encounter Progress Notes * Mary Verde CRNP - 01/07/2024 3:00 PM EDT 01/07/2024 Cardiology Follow Up 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 Last seen in our office by Eloy Diaz PA-C 07/22/23. Patient states that her symptoms started that started a few months ago. She thought that it may have been a side effect of a bladder medication that she was on for 2 months, but states that the heart symptoms started before. She reports that she gets these episodes a few times a week. She reports palpitations would wake her from a sleep, described as racing and doing "flip flops". She reports that they are worse with exertion. It takes her breath away and makes her dizzy. She reports they last for a few minutes and resolve spontaneously. She also endorse episodes of chest pressure separate from the palpitations. She describes it as a heaviness and pressure, she becomes short of breath. These happen with both rest and exertion, and they resolve within a few minutes with no intervention. If she is doing something she has to stop. Denies any caffeine use. Does not use tobacco. BP is well controlled. Reports compliance on all medication therapies. REVIEW OF SYSTEMS: See HPI for pertinent positives. All others negative other than those noted in the HPI. CONSTITUTIONAL: No change in weight, No weakness, No fatigue and No fevers, No sweats or chills. PULMONARY: No cough, sputum, or hemoptysis, No wheezing, No shortness or breath and No recent change in breathing. CARDIOVASCULAR: No chest pain, No dyspnea on exertion, No edema, No palpitations and No syncope. GASTROINTESTINAL: No abdominal pain, No change in bowel habits, No significant heartburn, No nausea, No vomiting, No diarrhea, No constipation, No blood in stools or black tarry stools. No dysphagia. HEMATOLOGIC: No abnormal bleeding and No bruising. NEUROLOGICAL: Normal balance, No headaches and No weakness. Review of patient's allergies indicates: Allergen Reactions [...] 16 mg 16 mg Intra-Articular Q Week Hevre Valera PA-C 16 mg at 01/13/24 1419 Past Medical History: Diagnosis Date Allergic rhinitis due to other allergen Anticoagulation management encounter 12/14/2011 BRCA1 gene mutation negative BRCA2 gene mutation negative Breast cancer (HCC) 07/10/2021 Left Breast Invasive ductal carcinoma, histologic grade 3 CATARACT NOS 01/25/2007 COMMON MIGRAINE WITHOUT MENTION OF INTRACTABLE MIGRAINE 01/01/2003 Current tear of medial cartilage or meniscus of knee Dyslipidemia, goal LDL below 100 08/29/2009 Embolism - blood clot Esophageal reflux Esophagitis, unspecified Factor V Leiden ([facility]) 12/28/2011 GENERALIZED ANXIETY DIS 12/19/2001 Headache(784.0) 06/26/2002 HTN, goal below 140/90 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 Kidney disease, chronic, stage III (GFR 30-59 ml/min) ([facility]) 05/07/09 23/1.0 GFR 59.1 LIPOMA SKIN NEC 01/02/2008 Mitral valve disorder prolapse, uses SBE prophylaxis Mitral valve prolapse Mixed dyslipidemia Oral aphthae BIANCA (obstructive sleep apnea) 03/24/2017 Pulmonary embolus ([facility]) 11/2011 SBE (subacute bacterial endocarditis) prophylaxis candidate Sleep apnea, obstructive Stomatitis and mucositis (ulcerative) recurrent apthous ulcers Tear of lateral cartilage or meniscus of knee, current Tear of tendon of right ankle 2014 Temporomandibular joint disorders, unspecified Vaginitis chronic Venous thrombosis 12/14/2011 Family History Problem Relation Age of Onset Hypertension Mother VANESA-BSO Other (BIANCA) Brother Other (Mesothelioma) Brother Diabetes Brother Colon cancer Brother Pancreatic cancer Brother Diabetes Brother Multiple Sclerosis Daughter Other (endometriosis) Daughter VANESA-BSO Leukemia Nephew Breast Cancer No significant family history Social History Socioeconomic History Marital status: Occupational History 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 Tobacco Use Smoking status: Never Smokeless tobacco: Never Vaping Use Vaping Use: Never used Substance and Sexual Activity Alcohol use: Yes Comment: Very rare- once a month if that Drug use: No Sexual activity: Yes Partners: Male Other Topics Concern Special Diet Yes Comment: healthy, weight watchers Exercise Yes Comment: walking Seat Belt Yes Self-Exams Yes Social Determinants of Health Food Insecurity: No Food Insecurity (10/17/2019) Hunger Vital Sign Worried About Running Out of Food in the Last Year: Never true Ran Out of Food in the Last Year: Never true OBJECTIVE/PHYSICAL EXAMINATION: BP 128/76 | Pulse 86 | Wt 99.3 kg (219 lb) | SpO2 97% | BMI 40.71 kg/m | BSA 2.08 [...] deficits. PSYCH: Appropriate affect and insight. DATA Labs & Imaging Reviewed Below: EKG 01/05/24 Sinus rhythm with Premature supraventricular [...] regurgitation is present. ASSESSMENT/PLAN: 78 year old year old female 1. Chest pain, unspecified type 2. Nonspecific abnormal electrocardiogram (ECG) (EKG) 3. Palpitations 4. Lightheadedness 5. Dyspnea on exertion -Patient with multiple symptoms of concern. Etiology unclear. - EKG demonstrates PVCs and non-specific ST abnormality non present on prior studies. -Obtain labs to assess for anemia, Thyroid dysfunction and electrolyte disturbance. -Protracted cardiac monitoring to further assess patient's multitude of symptoms -Echocardiogram to assess overall structure and function especially in the setting of current symptoms, EKG changes and known mitral valve prolapse. -Obtain nuclear stress test to further investigate patient's symptoms in conjunction with EKG changes. Unable to ambulate on a treadmill due to gait stability, and worsening orthopedic issues. Nuclear imaging more appropriate in the setting of abnormal baseline EKG - EXTERNAL EKG 8 TO 15 DAYS; Future - ECHO, COMPLETE (2D), TRANS-THORACIC; Future - NM MYOCARD PERF IMG SPECT MULT STUDIES WITH PHARM INTERV; Future - CBC; Future - TSH WITH FREE T4 IF INDICATED; Future - COMPREHENSIVE METABOLIC PANEL; Future - MAGNESIUM; Future - CBC; Future 6. Mitral valve prolapse -Symptom complaints of chest discomfort, pre-syncope and dyspnea on exertion, worsening. - ECHO, COMPLETE (2D), TRANS-THORACIC; Future 7. HTN, goal below 140/90 -At target. Continue Spironolactone and Atenolol - NM MYOCARD PERF IMG SPECT MULT STUDIES WITH PHARM INTERV; Future 8. Dyslipidemia, goal LDL below 100 -Continue zetia 9. History of Pulmonary embolism -Continue warfarin, reports compliance -Continued management by MTM coag. DISPOSITION: Follow up 3 months or if symptoms worsen/fail to improve. All questions were answered to the patients satisfaction. Patient advised to report to ED with any and all emergencies. The patient agrees to the above plan and will call with additional questions or concerns. KRISTY Irby Cardiology, [facility] [address] [place] [address] I spent a total of 40 minutes on the date of service in preparation, delivery, and documentation ofthe care provided to Linette Trujillo excluding any time spent in the performance of separatelybilled services. This chart was completed in part utilizing [employer] Speech Voice Recognition Software. Grammatical errors, random [...] Nursing Notes * Margaux Nunez CMA - 01/07/2024 2:57 PM EDT Examination Room: 4 Name: Linette Trujillo Date of : (1945) Reason for Visit: 6m/acute Interim Hospitalization(s): none Problems/Concerns: denied Chest Pain/SOB: chest pressure, SOB, palps, dizziness. My [facility] is a way you can [...] Description 01/19/2024 8:30 AM EDT Laboratory Laboratory [address] [place] [phone] [address] [place] [address] 01/20/2024 11:00 AM EDT Office Visit Orthopaedics [facility] [address] [place] [address] Herve Valera PA-C [address] [place] [address] 01/24/2024 11:00 AM EDT Anticoagulation Pharmacy, [address] [place] [address] [place] [address] 01/27/2024 10:30 AM EDT Office Visit [facility]opaedics [facility] [place] [address] Herve Valera PA-C [address] [place] [address] 02/03/2024 3:30 PM EDT Cardiac Studies Cardiac Studies, [facility] [address] [facility] [place] [address] 03/16/2024 9:00 AM EDT Imaging [facility] 2nd Floor Cardiology, [place] [facility] [place] [address] 03/17/2024 10:00 AM EDT Imaging [facility] 2nd Floor Cardiology, [place] [address] [place] [address] 04/17/2024 11:00 AM EDT Office Visit Cardiology, [facility] [address] [place] [address] Daylin Diaz PA-C [address] [place] [address] 06/14/2024 1:40 PM EDT Office Visit Family [address] [place] [phone] aDnika Chairez PA-C [address] [place] [address] [place] [address] 07/03/2024 11:40 AM EDT [facility] [address] [place] [address] Tami Garrett PA-C [address] [place] [address] 08/07/2024 1:00 PM EST Laboratory Laboratory [address] [place] [phone] [facility] [address] [place] [address] 08/14/2024 2:00 PM EST Office Visit Hematology/Oncology [facility] [address] [place] [phone] Jeanette Arellano MD [address] [place] [address] 08/23/2024 2:55 PM EST Office Visit Urogynecology [facility] [address] [place] [address] Bay Ferreira MD [address] [place] [address] Nurse Zach Hernandez [address] [place] [address] 12/19/2024 1:40 PM EDT Office Visit Family [address] [place] [phone] Yoav Kong MD [address] [place] [address] [place] [address] 01/09/2025 10:30 AM EDT Office Visit Sleep Disorders [facility]tr [facility] [address] [place] [phone] Yara Beck CRNP [address] [place] [address] Scheduled Orders Name Type Priority Associated Diagnoses Orde r Schedule EXTERNAL EKG 8 TO 15 DAYS Holter Routine Palpitations Chest pain, unspecified type Expected: 01/07/2024 (Approximate), Expires: 01/06/2025 ECHO, COMPLETE (2D), TRANS-THORACIC Echocardiology Routine Palpitations Lightheadedness Dyspnea on exertion Mitral valve prolapse Chest pain, unspecified type Expected: 01/08/2024 (Approximate), Expires: 02/05/2026 NM MYOCARD PERF IMG SPECT MULT STUDIES WITH PHARM INTERV Cardiology Routine Palpitations Lightheadedness Dyspnea on exertion HTN, goal below 140/90 Nonspecific abnormal electrocardiogram (ECG) (EKG) Chest pain, unspecified type Expected: 01/08/2024, Expires: 02/05/2025 Scheduled Procedures Name Priority Associated Diagnoses Date/Ti me COLONOSCOPY FLEXIBLE PROXIMAL DIAGNOSTIC Recall Colon cancer screening Health Maintenance Due Date Last Done Comments Depression Screening 03/28/2022 03/28/2021 DTaP,Tdap,and Td Vaccines (2 - Td or Tdap) 06/14/2022 06/14/2012, 09/27/2005 Albumin/Creatinine Ratio 12/12/2023 023, 12/16/2021, 11/11/2021, Additional history exists CKD PHOS USE SMARTSET 49467 06/10/202405/22, 06/23/2022, 07/21/2021, Additional history exists GFR 07/08/2024 01/07/2024, 05/22, 10/16/2022, Additional history exists CKD HGB USE SMARTSET 85580 01/06/202501/06, 06/10/2023, 06/10/2023, Additional history exists TSH [...] filedocumented as of this encounter Results * (ABNORMAL) CBC (01/07/2024 4:06 PM EDT) WBC 11.02(H) 4.00 - 10.80 K/uL 01/08/2024 12:34 AM EDT LABORATORY [facility] RBC 5.06 3.85 - 5.15 M/uL 01/08/2024 12:34 AM EDT LAB[facility]ATORY [facility] HGB 14.6 12.0 - 15.3 g/dL 01/08/2024 12:34 AM EDT LAB[facility]ATORY [facility] HCT 47.8(H) 36.0 - 45.2 % 01/08/2024 12:34 AM EDT LAB[facility]ATORY [facility] MCV 94.5 81.5 - 97.5 fL 01/08/2024 12:34 AM EDT LABORATORY [facility] MCH 28.9 27.0 - 34.0 pg 01/08/2024 12:34 AM EDT LAB[facility]ATORY [facility] MCHC 30.5 32.0 - 36.0 g/dL 01/08/2024 12:34 AM EDT LABORATORY C RDW 15.2 11.5 - 15.5 % 01/08/2024 12:34 AM EDT LAB[facility]ATORY [facility] PLT 320 140 - 400 K/uL 01/08/2024 12:34 AM EDT [place] [facility] [place] MPV 10.3 6.6 - 11.1 fL 01/08/2024 12:34 AM EDT LABORATORY [facility] nRBCs 0 <=0 /100 WBCs 01/08/2024 12:34 AM EDT LABORATORY [facility] Blood Venous blood specimen / Unknown Venipuncture / Unknown 01/07/2024 4:06 PM EDT 01/07/2024 4:06 PM EDT Mary WAGNER LAB BLOOD ORDER BELINDA Performing Organization Address City/[facility]/ZIP Co de Phone Number LABORATORY C [address] [place] [address] * MAGNESIUM (01/07/2024 4:06 PM EDT) Magnesium 2.4 1.5 - 2.6 mg/dL 01/07/2024 11:18 PM EDT LABORATORY C Blood Venous blood specimen / Unknown Venipuncture / Unknown 01/07/2024 4:06 PM EDT 01/07/2024 4:06 PM EDT Mary WAGNER LAB BLOOD ORDER BELINDA Performing Organization Address City/[facility]/ZIP Co de Phone Number LABORATORY C [address] [place] [address] * (ABNORMAL) COMPREHENSIVE METABOLIC PANEL (01/07/2024 4:06 PM EDT) BUN 31(H) 6 - 20 mg/dL 01/07/2024 11:18 PM EDT LABORATORY C Creatinine 1.3(H) 0.5 - 1.0 mg/dL 01/07/2024 11:18 PM EDT LABORATORY [facility] Estimated Glomerular Filtration Rate 43(L) >=60 mL/min 01/07/2024 11:18 PM EDT LABORATORY [facility] Comment:eGFR is calculated b ased on the CKD-EPI 2020 equation Sodium 142 135 - 146 mmol/L 01/07/2024 11:18 PM EDT LABORATORY [facility] Potassium 4.0 3.5 - 5.1 mmol/L 01/07/2024 11:18 PM EDT LABORATORY [facility] Chloride 101 98 - 107 mmol/L 01/07/2024 11:18 PM EDT LAB[facility]ATORY [facility] CO2 32 22 - 32 mmol/L 01/07/2024 11:18 PM EDT LAB[facility]ATORY [facility] Anion Gap 9 7 - 15 mmol/L 01/07/2024 11:18 PM EDT LABORATORY [facility] Glucose 100 70 - 120 mg/dL 01/07/2024 11:18 PM EDT LABORATORY [facility] Albumin 4.4 3.8 - 5.0 g/dL 01/07/2024 11:18 PM EDT LABORATORY [facility] AST 20 10 - 35 U/L 01/07/2024 11:18 PM EDT LABORATORY C Alkaline Phosphatase 69 35 - 130 U/L 01/07/2024 11:18 PM EDT LABORATORY [facility] Bilirubin, Total 0.4 <=1.2 mg/dL 01/07/2024 11:18 PM EDT LABORATORY [facility] Calcium 9.4 8.4 - 10.2 mg/dL 01/07/2024 11:18 PM EDT LABORATORY [facility] Protein 6.5 6.0 - 8.3 g/dL 01/07/2024 11:18 PM EDT LABORATORY [facility] ALT 27 10 - 35 U/L 01/07/2024 11:18 PM EDT LABORATORY [facility] [place] Blood Venous blood specimen / Unknown Venipuncture / Unknown 01/07/2024 4:06 PM EDT 01/07/2024 4:06 PM EDT Mary WAGNER LAB BLOOD ORDER BELINDA LAB[facility]AT[facility] [place] [address] [place] [address] * TSH WITH FREE T4 IF INDICATED (01/07/2024 4:06 PM EDT) TSH 1.92 0.27 - 4.20 uIU/mL 01/07/2024 11:52 PM EDT LABORATORY [facility] Blood Venous blood specimen / Unknown Venipuncture / Unknown 01/07/2024 4:06 PM EDT 01/07/2024 4:06 PM EDT Mary Verde KRISTY LAB BLOOD ORDER BELINDA LABORATORY [facility] [address] [place] [address] documented in this encounter Visit Diagnoses Diagnosis Chest pain, unspecified type- Primary Nonspecific abnormal electrocardiogram (ECG) (EKG) Palpitations Lightheadedness Dizziness and giddiness Dyspnea on exertion Other dyspnea and respiratory abnormality Mitral valve prolapse Mitral valve disorders HTN, goal below 140/90 Unspecified essential hypertension Dyslipidemia, goal LDL below 100 Other and unspecified hyperlipidemia History of pulmonary embolism Personal history of pulmonary embolism documented in this encounter Advance Directives Documents on File Type Date Recorded 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
--- OUTSIDE RECORDS SUMMARY | 2024-06-16 04:16 | External Medical Summary | Summary of Care ---
Author Name Unknown Organization [facility] Address [address] [facility] [place] [address] Phone [phone] Care Team Providers Care Fashion Buying Internship Name Role Phone Yoav Kong MD Primary Care Provide r Reason for Visit * Reason Comments Follow Up Right knee injection Encounter Details Date Type Department Care Team (Late st Contact Info) Description 01/13/2024 11:00 AM EDT Office Visit Orthopaedics [facility] [address] [facility] [place] [address] Herve Valera PA-C [address] [place] [...] kidney disease 07/29/2020 Overview: Per CKD protocol Taoist or spiritual beliefs affecting medical care 05/25/2019 [...] This chart was completed in part utilizing [employer] Speech Voice Recognition Software. Grammatical errors, random [...] 01/13/2024 2:05 PM EDT NeuroDiagnostic Study Neurophysiology [address] [place] [address] Donald Sevilla, DO 200 [facility] [place] [address] 01/19/2024 8:30 AM EDT Laboratory Laboratory [address] [place] [phone] [address] [place] [address] 01/20/2024 11:00 AM EDT Office Visit Orthopaedics [facility] [address] [place] [address] Herve Valera PA-C [address] [place] [address] 01/24/2024 11:00 AM EDT Anticoagulation Pharmacy, [address] [place] [address] [place] [address] 01/27/2024 10:30 AM EDT Office Visit Orthopaedics [facility] 132 [facility] [place] [address] Herve Valera PA-C [address] [place] [address] 02/03/2024 3:30 PM EDT Cardiac Studies Cardiac Studies, [facility] 132 [facility] [place] [address] 03/16/2024 9:00 AM EDT Imaging [facility] 2nd Floor Cardiology, [address] [place] [address] 03/17/2024 10:00 AM EDT Imaging [facility] 2nd Floor Cardiology, [address] [place] [address] 04/17/2024 11:00 AM EDT Office Visit Cardiology, [facility] 132 [facility] [place] [address] Daylin Diaz PA-C [address] [place] [address] 06/14/2024 1:40 PM EDT Office Visit Family Medicine [address] [place] [phone] Danika Chaney PA-C [address] [place] [address] [place] [address] 07/03/2024 11:40 AM EDT Office [facility] [address] [place] [address] Tami Garrett PA-C [address] [place] [address] 08/07/2024 1:00 PM EST Laboratory Laboratory [address] [place] [phone] [place] [address] 08/14/2024 2:00 PM EST Office Visit Hematology/Oncology [facility] [address] [place] [phone] Jeanette Arellano MD [address] [place] [address] 08/23/2024 2:55 PM EST Office Visit Urogynecology [facility] [address] [place] [address] Bay Ferreira MD [address] [place] [address] Nurse Zach Hernandez [address] [place] [address] 12/19/2024 1:40 PM EDT Office Visit Family Medicine [address] [place] [phone] Yoav Kong MD [address] [place] [address] [place] [address] 01/09/2025 10:30 AM EDT Office Visit Sleep Disorders Ctr [facility] [address] [place] [address] Yara Beck CRNP [address] [place] [address] Scheduled Orders Name Type Priority Associated Diagnoses [...] Additional history exists CKD PHOS USE SMARTSET 38664 06/10/202405/22, 06/23/2022, 07/21/2021, Additional history exists GFR 07/08/2024 01/07/2024, 05/22, 10/16/2022, Additional history exists CKD HGB USE SMARTSET 93162 01/06/202501/06, 06/10/2023, 06/10/2023, Additional history exists TSH [...] Documents on File Type Date Recorded Patient Impregnator Carbon Products Expl anation Advance Directives and Karrie mata Will 05/20/2016 ADVANCE DIRECTIVE Power of Wire Strander 05/20/2016 POWER OF A TTORNEY Latest Code Status on File Code Status Date Activated Date Inactivated Comments Full Code 08/14/2008 10:37 AM 08/14/2008 10:38 AM Care Teams Fashion Buying Internship Relationship Specialty Start Date End Date Yoav Kong MD [address] [place] [address] [place] [address] PCP - General Family Medicine 04/09/14 documented as of this encounter
--- OUTSIDE RECORDS SUMMARY | 2024-06-16 04:16 | External Medical Summary | Summary of Care ---
Author Name Unknown Organization [facility] Address [address] [place] [facility] [place] [place] [address] Phone [phone] Care Team Providers Care Peel Oven Tender Name Role Phone Yoav Kong MD Primary Care Provide r Reason for Visit * Reason Comments Follow Up Right knee injection Encounter Details Date Type Department Care Team (Late st Contact Info) Description 01/13/2024 11:00 AM EDT Office Visit Orthopaedics [facility] [address] [facility] [place] [address] Herve Valera PA-C [address] [place] [...] pulmonary embolism,Factor V Leiden (HCC),Anticoagulation management encounter,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 Grammatical errors, random [...] documented in this encounter Nursing Notes * Nlalely Bhagat ATC - 01/13/2024 10:44 AM EDT Right knee synvesic injection. First injection. Reports that she has been looking forward to injection due to pain. Reports that injection series is helpful. documented in this encounter Plan of Treatment Upcoming Encounters Date Type Department Care Team (Late st Contact Info) Description 01/13/2024 2:05 PM EDT NeuroDiagnostic Study Neurophysiology [address] [place] [address] Donald Sevilla, DO 200 [facility] [place] [address] 01/19/2024 8:30 AM EDT Laboratory Laboratory [address] [place] [phone] [address] [place] [address] 01/20/2024 11:00 AM EDT Office Visit Orthopaedics [facility] [address] [place] [address] Herve Valera PA-C [address] [place] [address] 01/24/2024 11:00 AM EDT Anticoagulation Pharmacy, [address] [place] [address] [place] [address] 01/27/2024 10:30 AM EDT Office Visit Orthopaedics [facility] 132 [facility] [place] [address] Herve Valera PA-C [address] [place] [address] 02/03/2024 3:30 PM EDT Cardiac Studies Cardiac Studies, [facility] 132 [facility] [place] [address] 03/16/2024 9:00 AM EDT Imaging [facility] 2nd Floor Cardiology, [address] [place] [address] 03/17/2024 10:00 AM EDT Imaging [facility] 2nd Floor Cardiology, [address] [place] [address] 04/17/2024 11:00 AM EDT Office Visit Cardiology, [facility] 132 [facility] [place] [address] Daylin Diaz PA-C [address] [place] [address] 06/14/2024 1:40 PM EDT Office Visit Family Medicine [address] [place] [phone] Danika Chaney PA-C [address] [place] [address] [place] [address] 07/03/2024 11:40 AM EDT [facility] [address] [place] [address] Tami Garrett PA-C [address] [place] [address] 08/07/2024 1:00 PM EST Laboratory Laboratory [address] [place] [phone] [place] [address] 08/14/2024 2:00 PM EST Office Visit Hematology/Oncology [facility] [address] [place] [phone] Jeanette Arellano MD [address] [place] [address] 08/23/2024 2:55 PM EST Office Visit Urogynecology [facility] [address] [place] [address] Bay Ferreira MD [address] [place] [address] Nurse Zach Hernandez [address] [place] [address] 12/19/2024 1:40 PM EDT Office Visit Family Medicine [address] [place] [phone] Yoav Kong MD [address] [place] [address] [place] [address] 01/09/2025 10:30 AM EDT Office Visit Sleep Disorders Ctr [facility] [address] [place] [phone] Yara Beck CRNP [address] [place] [address] Scheduled Orders Name Type Priority Associated Diagnoses [...] Additional history exists CKD PHOS USE SMARTSET 54377 06/10/202405/22, 06/23/2022, 07/21/2021, Additional history exists GFR 07/08/2024 01/07/2024, 05/22, 10/16/2022, Additional history exists CKD HGB USE SMARTSET 66911 01/06/202501/06, 06/10/2023, 06/10/2023, Additional history exists TSH [...] Documents on File Type Date Recorded Patient Booker Expl anation Advance Directives and Karrie mata Will 05/20/2016 ADVANCE DIRECTIVE Power of Law Librarian 05/20/2016 POWER OF A TTORNEY Latest Code Status on File Code Status Date Activated Date Inactivated Comments Full Code 08/14/2008 10:37 AM 08/14/2008 10:38 AM Care Teams Peel Oven Tender Relationship Specialty Start Date End Date Yoav Kong MD [address] [place] [address] [place] [address] PCP - General Family Medicine 04/09/14 documented as of this encounter
--- OUTSIDE RECORDS SUMMARY | 2024-06-16 04:16 | External Medical Summary | Summary of Care ---
Author Name Unknown Organization [facility] Address [address] [facility] [place] [place] [address] Phone [phone] Care Team Providers Care Crankshaft Grinder Name Role Phone Yoav Kong MD Primary Care Provide r Reason for Visit * Reason Onset Date Comments Precert Approved 01/11/2024 Synvis One Encounter Details Date Type Department Care Team (Late st Contact Info) Description 01/11/2024 [address], [address] [place] [address] [place] [address] Herve Valera PA-C [address] [place] [address] Precert Approved (Synvis One ) Allergies Active Allergy Reactions Criticality Noted Date [...] pulmonary embolism,Factor V Leiden (HCC),Anticoagulati on management encounter,[facility] current use of anticoagulant therapy,Venous [...] Additional Information Patient not taking.Reported on 01/07/2024 Torsemide 20 MG Oral Tablet (Demadex)Indication s:Diastolic dysfunction TAKE 1 TABLET BY MOUTH EVERY DAY IN THE MORNING 90 Tablet 3 01/10/20 24 Active Klor-Con M10 10 MEQ Oral [...] 90 Tablet 3 03/30/20 23 024 Discontinued Hospital, Clinic, or Other [...] embolism 12/20/2011 Anticoagulation management 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 08/02/2023 Pneumococcal Conjugate Vacc, 13 Valent (Prevnar) [...] Miscellaneous Notes * Telephone Encounter - Leah De La Torre OSA - 01/13/2024 9:42 AM EDT APPROVED SEE REFERRAL MESSAGE * Telephone Encounter - Minerva Li OSA - 01/12/2024 1:46 PM EDT Received fax from [facility] authorizing the Synvisc One and scanned into chart. * Telephone Encounter - Leanne Massey MED ASSIST - 01/12/2024 8:06 AM EDT Synvisc one * Telephone Encounter - Leah De La Torre OSA - 01/12/2024 5:45 AM EDT The preferred medications with [facility] for 2023 are: Synvics One, Monovisc Orthovisc[place] [phone] only. * Telephone Encounter - Leanne Massey MED ASSIST - 01/11/2024 1:28 PM EDT Orthopaedics Pre-Cert Request Medication/Disease State Information: Medication: Hyaluronate- Synvisc (J7325): inject 48 mg (6 mL) once a week for 3 weeks (total of 3 injections). Route to [id number] Is there radiological proof(x-ray, cat scan, mri of osteoarthritis? yesIf yes, date of scan: Has the patient tried physical therapy?yes Has the patient tried tylenol or NSAIDs?yes Has the patient failed corticosteroid injections of the knee?yes Has the patient tried weight loss?no Has the patient tried knee bracing?yes Has the patient tried a home exercise program?no Diagnosis (including ICD-10): Unilateral primary osteoarthritis, right knee- M17.11 Medication(s) Tried/Failed/Contraindicated: See corresponding visit note(s) for additional supporting clinical information. Office Information: Prescriber: gabino valera, THIS IS A REAUTHORIZATION documented in this encounter Plan of Treatment Upcoming Encounters Date Type Department Care Team (Late st Contact Info) Description 01/13/2024 11:00 AM EDT Office Visit Orthopaedics [facility] [place] [address] Herve Valera PA-C [address] [place] [address] 01/13/2024 2:05 PM EDT NeuroDiagnostic Study Neurophysiology [facility] [address] [place] [address] Donald Sevilla, DO 200 [facility] [place] [address] 01/19/2024 8:30 AM EDT Laboratory Laboratory [address] [place] [phone] [place], Lab [address] [place] [address] 01/20/2024 11:00 AM EDT Office Visit [facility] [address] [place] [address] Herve Valera PA-C [address] [place] [address] 01/24/2024 11:00 AM EDT Anticoagulation Pharmacy, [address] [place] [address] [place] [address] 01/27/2024 10:30 AM EDT Office Visit Orthopaedics [facility] 132 [facility] [place] [address] Herve Valera PA-C [address] [place] [address] 02/03/2024 3:30 PM EDT Cardiac Studies Cardiac Studies, [facility] 132 [facility] [place] [address] 03/16/2024 9:00 AM EDT Imaging [facility] 2nd Floor Cardiology, [place] 132 [facility] [place] [address] 03/17/2024 10:00 AM EDT Imaging [facility] 2nd Floor Cardiology, [place] 132 [facility] [place] [address] 04/17/2024 11:00 AM EDT Office Visit Cardiology, [facility] 132 [facility] [place] [address] Daylin Diaz PA-C [address] [place] [address] 06/14/2024 1:40 PM EDT Office Visit Family Medicine [address] [place] [phone] Danika Chairez PA-C [address] [place] [address] [place] [address] 07/03/2024 11:40 AM EDT Office Visit Nutrition & Weight Management, [facility] 132 [facility] [place] [address] Tami Garrett PA-C [address] [place] [address] 08/07/2024 1:00 PM EST Laboratory Laboratory [address] [place] [phone] [place] [address] 08/14/2024 2:00 PM EST Office Visit Hematology/Oncology [facility] [address] [place] [phone] Jeanette Arellano MD [address] [place] [address] 08/23/2024 2:55 PM EST Office Visit Urogynecology Nico Hernandez [address] [place] [address] Bay Ferreira MD [address] [place] [address] Nurse Zach Hernandez [address] [place] [address] 12/19/2024 1:40 PM EDT Office Visit Family Medicine [address] [place] [phone] Yoav Kong MD [address] [place] [address] [place] [address] 01/09/2025 10:30 AM EDT Office Visit Sleep Disorders Ctr Shayna Hernandez [place] [address] [place] [phone] Yara Beck CRNP [address] [place] [address] Scheduled Procedures Name Priority Associated Diagnoses Date/Ti me COLONOSCOPY FLEXIBLE PROXIMAL DIAGNOSTIC Recall Colon cancer screening Health Maintenance Due Date Last Done Comments Depression Screening 03/28/2022 03/28/2021 DTaP,Tdap,and Td Vaccines (2 - Td or Tdap) 06/14/2022 06/14/2012, 09/27/2005 Albumin/Creatinine Ratio 12/12/2023 023, 12/16/2021, 11/11/2021, Additional history exists CKD PHOS USE SMARTSET 53337 06/10/202405/22, 06/23/2022, 07/21/2021, Additional history exists GFR 07/08/2024 01/07/2024, 05/22, 10/16/2022, Additional history exists CKD HGB USE SMARTSET 77572 01/06/202501/06, 06/10/2023, 06/10/2023, Additional history exists TSH [...] Documents on File Type Date Recorded Patient Crutch Maker Expl anation Advance Directives and Karrie Gutierrez 05/20/2016 ADVANCE DIRECTIVE Power of Exhauster 05/20/2016 POWER OF A TTORNEY Latest Code Status on File Code Status Date Activated Date Inactivated Comments Full Code 08/14/2008 10:37 AM 08/14/2008 10:38 AM Care Teams Crankshaft Grinder Relationship Specialty Start Date End Date Yoav Kong MD [address] [place] [address] [place] [address] PCP - General Family Medicine 04/09/14 documented as of this encounter
--- OUTSIDE RECORDS SUMMARY | 2024-06-16 04:16 | External Medical Summary | Summary of Care ---
Author Name Unknown Organization [facility] Address [address] [place] [address] Phone [phone] Care Team Providers Care Wire Stitcher Name Role Phone Yoav Kong MD Primary Care Provide r Reason for Visit * Reason Onset Date Comments Precert In Process 01/11/2024 Synvis One Ae tna LEAH Encounter Details Date Type Department Care Team (Late st Contact Info) Description 01/11/2024 Telephone Orthopaedics, [place] [address] [place] [address] Herve Valera PA-C [address] [place] [address] Precert In Process (Synvis One Aetmirian GARCIA ) Allergies Active Allergy Reactions Criticality Noted [...] pulmonary embolism,Factor V Leiden (HCC),Anticoagulati on management encounter,skilled nursing current use of anticoagulant [...] kidney disease 07/29/2020 Overview: Per CKD protocol Shinto or spiritual beliefs affecting medical care 05/25/2019 [...] 12/20/2011 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 [phone] only. * Telephone Encounter - Leanne Massey MED ASSIST - 01/11/2024 1:28 PM EDT Orthopaedics Pre-Cert Request Medication/Disease State Information: Medication: Hyaluronate- Synvisc (J7325): inject 48 mg (6 mL) once a week for 3 weeks (total of 3 injections). Route to [id number] Is there radiological proof(x-ray, cat scan, mri [...] 01/13/2024 11:00 AM EDT Office Visit Orthopaedics [facility] 132 [facility] [place] [address] Herve Valera PA-C [address] [place] [address] 01/13/2024 2:05 PM EDT NeuroDiagnostic Study Neurophysiology [address] [place] [address] Donald Sevilla, DO [address] [place] [address] 01/19/2024 8:30 AM EDT Laboratory Laboratory [address] [place] [phone] [address] [place] [address] 01/20/2024 11:00 AM EDT Office Visit [facility] 132 [facility] [place] [address] Herve Valera PA-C [address] [place] [address] 01/24/2024 11:00 AM EDT Anticoagulation Pharmacy, [address] [place] [address] [place] [address] 01/27/2024 10:30 AM EDT Office Visit Orthopaedics [facility] [address] [place] [address] Herve Valera PA-C [address] [place] [address] 02/03/2024 3:30 PM EDT Cardiac Studies Cardiac Studies, [facility] [place] [address] 03/16/2024 9:00 AM EDT Imaging [facility] 2nd Floor Cardiology, [place] [facility] [place] [address] 03/17/2024 10:00 AM EDT Imaging [facility] 2nd Floor Cardiology, [place] [facility] [place] [address] 04/17/2024 11:00 AM EDT Office Visit Cardiology, [facility] [place] [address] Daylin Diaz PA-C [address] [place] [address] 06/14/2024 1:40 PM EDT Office Visit Family Medicine [address] [place] [phone] Danika Chairez PA-C [address] [place] [address] [place] [address] 07/03/2024 11:40 AM EDT Office Visit Nutrition & Weight Management, [facility] [address] [place] [address] Tami Garrett PA-C [address] [place] [address] 08/07/2024 1:00 PM EST Laboratory Laboratory [address] [place] [address] [place] [address] 08/14/2024 2:00 PM EST Office Visit Hematology/Oncology [facility] [place] [address] [place] [phone] Jeanette Arellano MD [address] [place] [address] 08/23/2024 2:55 PM EST Office Visit Urogynecology Nico Hernandez [address] [place] [address] Bay Ferreira MD [address] [place] [address] Nurse Zach Hernandez [address] [place] [address] 12/19/2024 1:40 PM EDT Office Visit Family Medicine [address] [place] [phone] Yoav Kong MD [address] [place] [address] [place] [address] 01/09/2025 10:30 AM EDT Office Visit Sleep Disorders Ctr Shayna Hernandez [place] [address] [place] [phone] Yara Beck CRNP [address] [place] [address] Scheduled Procedures Name Priority Associated Diagnoses Date/Ti me COLONOSCOPY FLEXIBLE PROXIMAL DIAGNOSTIC Recall Colon cancer screening Health Maintenance Due Date Last Done Comments Depression Screening 03/28/2022 03/28/2021 DTaP,Tdap,and Td Vaccines (2 - Td or Tdap) 06/14/2022 06/14/2012, 09/27/2005 Albumin/Creatinine Ratio 12/12/2023 023, 12/16/2021, 11/11/2021, Additional history exists CKD PHOS USE SMARTSET 64642 06/10/202405/22, 06/23/2022, 07/21/2021, Additional history exists GFR 07/08/2024 01/07/2024, 05/22, 10/16/2022, Additional history exists CKD HGB USE SMARTSET 14530 01/06/202501/06, 06/10/2023, 06/10/2023, Additional history exists TSH [...] Documents on File Type Date Recorded Patient Lithograph Press Feeder Expl anation Advance Directives and Karrie mata Will 05/20/2016 ADVANCE DIRECTIVE Power of Retail Analyst 05/20/2016 POWER OF A TTORNEY Latest Code Status on File Code Status Date Activated Date Inactivated Comments Full Code 08/14/2008 10:37 AM 08/14/2008 10:38 AM Care Teams Wire Stitcher Relationship Specialty Start Date End Date Yoav Kong MD [address] [place] [address] [place] [phone] PCP - General Family Medicine 04/09/14 documented as of this encounter
--- OUTSIDE RECORDS SUMMARY | 2024-06-16 04:17 | External Medical Summary | Summary of Care ---
Author Name Unknown Organization [facility] Address [address] [place] [address] Phone [phone] Care Team Providers Care Rn Trauma Name Role Phone Yoav Kong MD Primary Care Provide r Reason for Visit * Reason Onset Date Comments Precert In Process 01/11/2024 Synvis One Ae tna LEAH Encounter Details Date Type Department Care Team (Late st Contact Info) Description 01/11/2024 Telephone Orthopaedics, Eamon Mcmillan [address] [place] [address] Herve Valera PA-C [address] [place] [address] Precert In Process (Synvis One [...] as of this encounter (statuses as of 01/12/2024) Medications Medication Sig Dispensed Refills Start Date [...] in the morning. 0 06/10/20 22 Active Klor-Con M10 10 MEQ Oral Tablet Extended Release (potassium chloride ER)Indications:Terry a TAKE 1 TABLET BY MOUTH EVERY DAY IN THE MORNING 90 Tablet 3 12/30/19 23 Active high fiber LIQD Take by mouth. 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 [phone] only. * Telephone Encounter - Leanne Massey MED ASSIST - 01/11/2024 1:28 PM EDT Orthopaedics Pre-Cert Request Medication/Disease State Information: Medication: Hyaluronate- Synvisc (J7325): inject 48 mg (6 mL) once a week for 3 weeks (total of 3 injections). Route to [id number] Is there radiological proof(x-ray, cat scan, mri [...] Description 01/13/2024 11:00 AM EDT Office Visit [facility] [address] [place] [address] Herve Valera PA-C [address] [place] [address] 01/13/2024 2:05 PM EDT NeuroDiagnostic Study Neurophysiology [facility] [address] [place] [address] Donald Sevilla, DO [address] [place] [address] 01/19/2024 8:30 AM EDT Laboratory Laboratory [address] [place] [phone] [address] [place] [address] 01/20/2024 11:00 AM EDT Office Visit [facility] [address] [place] [address] Herve Valera PA-C [address] [place] [address] 01/24/2024 11:00 AM EDT Anticoagulation Pharmacy, [address] [place] [address] [place] [address] 01/27/2024 10:30 AM EDT Office Visit [facility] [address] [place] [address] Herve Valera PA-C [address] [place] [address] 02/03/2024 3:30 PM EDT Cardiac Studies Cardiac Studies, [facility] [place] [address] 03/16/2024 9:00 AM EDT Imaging [facility] 2nd Floor [facility] [place] [facility] [place] [address] 03/17/2024 10:00 AM EDT Imaging [facility] 2nd Floor Cardiology, [place] [facility] [place] [address] 04/17/2024 11:00 AM EDT Office Visit Cardiology, [facility] 132 [facility] [place] [address] Daylin Diaz PA-C [address] [place] [address] 06/14/2024 1:40 PM EDT Office Visit Family Medicine [address] [place] [phone] Danika Chairez PA-C [address] [place] [address] [place] [address] 07/03/2024 11:40 AM EDT Office Visit Nutrition & Weight Management, [facility] 132 [facility] [place] [address] Tami Garrett PA-C [facility] [place] [address] 08/07/2024 1:00 PM EST Laboratory Laboratory [address] [place] [phone] [address] [place] [address] 08/14/2024 2:00 PM EST Office Visit Hematology/Oncology [facility] [place] [phone] Jeanette Arellano MD [address] [place] [phone] 08/23/2024 2:55 PM EST Office Visit Urogynecology Nico Hernandez [address] [place] [address] Bay Ferreira MD [address] [place] [address] Nurse Zach Hernandez [address] [place] [address] 12/19/2024 1:40 PM EDT Office Visit Family Medicine [address] [place] [phone] Yoav Kong MD [address] [place] [address] [place] [address] 01/09/2025 10:30 AM EDT Office Visit [facility] [place] [phone] Yara Beck CRNP [address] [place] [address] Scheduled Procedures Name Priority Associated Diagnoses Date/Ti me COLONOSCOPY FLEXIBLE PROXIMAL DIAGNOSTIC Recall Colon cancer screening Health Maintenance Due Date Last Done Comments Depression Screening 03/28/2022 03/28/2021 DTaP,Tdap,and Td Vaccines (2 - Td or Tdap) 06/14/2022 06/14/2012, 09/27/2005 Albumin/Creatinine Ratio 12/12/2023 023, 12/16/2021, 11/11/2021, Additional history exists CKD PHOS USE SMARTSET 14517 06/10/202405/22, 06/23/2022, 07/21/2021, Additional history exists GFR 07/08/2024 01/07/2024, 05/22, 10/16/2022, Additional history exists CKD HGB USE SMARTSET 93157 01/06/202501/06, 06/10/2023, 06/10/2023, Additional history exists TSH [...] on File Type Date Recorded 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
--- OUTSIDE RECORDS SUMMARY | 2024-06-16 04:17 | External Medical Summary | Summary of Care ---
Author Name Unknown Organization [facility] Address [address] [place] [address] Phone [phone] Care Team Providers Care Lifestyle Consultant Name Role Phone Yaov Kong MD Primary Care Provide r Reason for Visit * Reason Onset Date Comments Precert In Process 01/11/2024 Synvis One Ae tna LEAH Encounter Details Date Type Department Care Team (Late st Contact Info) Description 01/11/2024 Telephone Orthopaedics, Eamon Mcmillan [address] [place] [address] Herve Valera PA-C [address] [place] [address] Precert In Process (Synvis One [...] pulmonary embolism,Factor V Leiden (HCC),Anticoagulati on management encounter,senior care current use of anticoagulant therapy,Venous thrombosis [...] pulmonary embolism 12/20/2011 Anticoagulation management encounter 12/14/2011 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 * Telephone Encounter - Leanne Massey MED ASSIST - 01/12/2024 8:06 AM EDT Synvisc one * Telephone Encounter - Leah De La Torre OSA - 01/12/2024 5:45 AM EDT The preferred medications with [facility] for 2023 are: Synvics One, Monovisc Orthovisc[place] [phone] only. * Telephone Encounter - Leanne Massey MED ASSIST - 01/11/2024 1:28 PM EDT Orthopaedics Pre-Cert Request Medication/Disease State Information: Medication: Hyaluronate- Synvisc (J7325): inject 48 mg (6 mL) once a week for 3 weeks (total of 3 injections). Route to [id number] Is there radiological proof(x-ray, cat scan, mri [...] 01/13/2024 11:00 AM EDT Office Visit Orthopaedics [facility] 132 [facility] [place] [address] Herve Valera PA-C [address] [place] [address] 01/13/2024 2:05 PM EDT NeuroDiagnostic Study Neurophysiology [address] [place] [address] Donald Sevilla, DO [address] [place] [address] 01/19/2024 8:30 AM EDT Laboratory Laboratory [address] [place] [phone] [address] [place] [address] 01/20/2024 11:00 AM EDT Office Visit [facility] 132 [facility] [place] [address] Herve Valera PA-C [address] [place] [address] 01/24/2024 11:00 AM EDT Anticoagulation Pharmacy, [address] [place] [address] [place] [address] 01/27/2024 10:30 AM EDT Office Visit Orthopaedics [facility] [address] [place] [address] Herve Valera PA-C [address] [place] [address] 02/03/2024 3:30 PM EDT Cardiac Studies Cardiac Studies, [facility] [place] [address] 03/16/2024 9:00 AM EDT Imaging [facility] 2nd Floor Cardiology, [place] [facility] [place] [address] 03/17/2024 10:00 AM EDT Imaging [facility] 2nd Floor Cardiology, [place] [facility] [place] [address] 04/17/2024 11:00 AM EDT Office Visit Cardiology, [facility] [place] [address] Daylin Diaz PA-C [address] [place] [address] 06/14/2024 1:40 PM EDT Office Visit Family Medicine [address] [place] [phone] Danika Chairez PA-C [address] [place] [address] [place] [address] 07/03/2024 11:40 AM EDT Office Visit Nutrition & Weight Management, [facility] [address] [place] [address] Tami Garrett PA-C [address] [place] [address] 08/07/2024 1:00 PM EST Laboratory Laboratory [address] [place] [phone] [place] [address] 08/14/2024 2:00 PM EST Office Visit Hematology/Oncology [facility] [place] [address] [place] [phone] Jeanette Arellano MD [address] [place] [phone] 08/23/2024 2:55 PM EST Office Visit Urogynecology Nico Hernandez [address] [place] [address] Bay Ferreira MD [address] [place] [address] Nurse Zach Hernandez [address] [place] [address] 12/19/2024 1:40 PM EDT Office Visit Family Medicine [address] [place] [phone] Yoav Kong MD [address] [place] [address] [place] [address] 01/09/2025 10:30 AM EDT Office Visit Sleep Disorders Ctr Shayna Hernandez [place] [address] [place] [phone] Yara Beck CRNP [address] [place] [phone] Scheduled Procedures Name Priority Associated Diagnoses Date/Ti me COLONOSCOPY FLEXIBLE PROXIMAL DIAGNOSTIC Recall Colon cancer screening Health Maintenance Due Date Last Done Comments Depression Screening 03/28/2022 03/28/2021 DTaP,Tdap,and Td Vaccines (2 - Td or Tdap) 06/14/2022 06/14/2012, 09/27/2005 Albumin/Creatinine Ratio 12/12/2023 023, 12/16/2021, 11/11/2021, Additional history exists CKD PHOS USE SMARTSET 30725 06/10/202405/22, 06/23/2022, 07/21/2021, Additional history exists GFR 07/08/2024 01/07/2024, 05/22, 10/16/2022, Additional history exists CKD HGB USE SMARTSET 68953 01/06/202501/06, 06/10/2023, 06/10/2023, Additional history exists TSH [...] Documents on File Type Date Recorded Patient Turf And Grounds Supervisor Expl anation Advance Directives and Karrie mata Will 05/20/2016 ADVANCE DIRECTIVE Power of Mixing Machine Operator 05/20/2016 POWER OF A TTORNEY Latest Code Status on File Code Status Date Activated Date Inactivated Comments Full Code 08/14/2008 10:37 AM 08/14/2008 10:38 AM Care Teams Lifestyle Consultant Relationship Specialty Start Date End Date Yoav Kong MD [address] [place] [address] [place] [phone] PCP - General Family Medicine 04/09/14 documented as of this encounter
--- OUTSIDE RECORDS SUMMARY | 2024-06-16 04:17 | External Medical Summary | Summary of Care ---
Author Name Unknown Organization [facility] Address [address] [place] [address] Phone [phone] Care Team Providers Care Drawer Maker Name Role Phone Yoav Kong MD Primary Care Provide r Reason for Visit * Reason Onset Date Comments Precert In Process 01/11/2024 Synvis One Ae tna LEAH Encounter Details Date Type Department Care Team (Late st Contact Info) Description 01/11/2024 Telephone Orthopaedics, Eamon Mcmillan [address] [place] [address] Herve Valera PA-C [address] [place] [address] Precert In Process (Synvis One [...] pulmonary embolism,Factor V Leiden (HCC),Anticoagulati on management encounter,[facility] current use of anticoagulant therapy,Venous thrombosis TAKE [...] kidney disease 07/29/2020 Overview: Per CKD protocol Orthodox or spiritual beliefs affecting medical care [...] embolism 12/20/2011 Anticoagulation management encounter 12/14/2011 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 [phone] only. * Telephone Encounter - Leanne Massey MED ASSIST - 01/11/2024 1:28 PM EDT Orthopaedics Pre-Cert Request Medication/Disease State Information: Medication: Hyaluronate- Synvisc (J7325): inject 48 mg (6 mL) once a week for 3 weeks (total of 3 injections). Route to [id number] Is there radiological proof(x-ray, cat scan, mri [...] Description 01/13/2024 11:00 AM EDT Office Visit [facility] [address] [place] [address] Herve Valera PA-C [address] [place] [address] 01/13/2024 2:05 PM EDT NeuroDiagnostic Study Neurophysiology [facility] [address] [place] [address] Donald Sevilla, DO [address] [place] [address] 01/19/2024 8:30 AM EDT Laboratory Laboratory [address] [place] [phone] [place], Lab [address] [place] [address] 01/20/2024 11:00 AM EDT Office Visit [facility] [address] [place] [address] Herve Valera PA-C [address] [place] [address] 01/24/2024 11:00 AM EDT Anticoagulation Pharmacy, [address] [place] [address] [place] [address] 01/27/2024 10:30 AM EDT Office Visit [facility] [address] [place] [address] Herve Valera PA-C [address] [place] [address] 02/03/2024 3:30 PM EDT Cardiac Studies Cardiac Studies, [facility] [place] [address] 03/16/2024 9:00 AM EDT Imaging [facility] 2nd Floor Cardiology, [place] 132 [facility] [place] [address] 03/17/2024 10:00 AM EDT Imaging [facility] 2nd Floor Cardiology, [place] [facility] [place] [address] 04/17/2024 11:00 AM EDT Office Visit Cardiology, [facility] 132 [facility] [place] [address] Daylin Diaz PA-C [facility] [place] [address] 06/14/2024 1:40 PM EDT Office Visit Family Medicine [address] [place] [phone] Danika Chairez PA-C [address] [place] [address] [place] [address] 07/03/2024 11:40 AM EDT Office Visit Nutrition & Weight Management, [facility] 132 [facility] [place] [address] Tami Garrett PA-C [facility] [address] 08/07/2024 1:00 PM EST Laboratory Laboratory [address] [place] [phone] [address] [place] [address] 08/14/2024 2:00 PM EST Office Visit Hematology/Oncology [facility] [address] [place] [phone] Jeanette Arellano MD [address] [place] [phone] 08/23/2024 2:55 PM EST Office Visit Urogynecology Nico Hernandez [address] [place] [address] Bay Ferreira MD [address] [place] [address] Nurse Zach Hernandez [address] [place] [address] 12/19/2024 1:40 PM EDT Office Visit [address] [phone] Yoav Kong MD [address] [place] [address] [place] [address] 01/09/2025 10:30 AM EDT Office Visit [facility] [place] [phone] Yara Beck CRNP 132 [facility] [place] [address] Scheduled Procedures Name Priority Associated Diagnoses Date/Ti me COLONOSCOPY FLEXIBLE PROXIMAL DIAGNOSTIC Recall Colon cancer screening Health Maintenance Due Date Last Done Comments Depression Screening 03/28/2022 03/28/2021 DTaP,Tdap,and Td Vaccines (2 - Td or Tdap) 06/14/2022 06/14/2012, 09/27/2005 Albumin/Creatinine Ratio 12/12/2023 023, 12/16/2021, 11/11/2021, Additional history exists CKD PHOS USE SMARTSET 72592 06/10/202405/22, 06/23/2022, 07/21/2021, Additional history exists GFR 07/08/2024 01/07/2024, 05/22, 10/16/2022, Additional history exists CKD HGB USE SMARTSET 90070 01/06/202501/06, 06/10/2023, 06/10/2023, Additional history exists TSH [...] Documents on File Type Date Recorded Patient Account General Manager Expl anation Advance Directives and Karrie mata Will 05/20/2016 ADVANCE DIRECTIVE Power of Power Wheelchair Mechanic 05/20/2016 POWER OF A TTORNEY Latest Code Status on File Code Status Date Activated Date Inactivated Comments Full Code 08/14/2008 10:37 AM 08/14/2008 10:38 AM Care Teams Drawer Maker Relationship Specialty Start Date End Date Yoav Kong MD [address] [place] [address] [place] [address] PCP - General Family Medicine 04/09/14 documented as of this encounter
--- OUTSIDE RECORDS SUMMARY | 2024-06-16 04:17 | External Medical Summary | Summary of Care ---
Author Name Unknown Organization [facility] Address [address] [place] [address] Phone [phone] Care Team Providers Care Helminthologist Name Role Phone Yoav Kong MD Primary Care Provide r Reason for Visit * Reason Comments eRx-Medication Refill Encounter Details Date Type Department Care Team (Late st Contact Info) Description 01/08/2024 Refill Cardiology, [facility] [address] [place] [address] Willy Rodriguez, DEYVI [address] [place] [address] Edema Allergies Active Allergy Reactions Criticality Noted Date [...] pulmonary embolism,Factor V Leiden (HCC),Anticoagulati on management encounter,prison current use of anticoagulant therapy,Venous thrombosis TAKE [...] 01/07/2024 Pramipexole Dihydrochloride 0.125 MG Oral Tablet (Mirapex)Indication [...] 90 Tablet 3 12/30/19 23 024 Discontinued Hospital, Clinic, or Other [...] pulmonary embolism 12/20/2011 Anticoagulation management encounter 12/14/2011 prison current use of anticoagulant therapy 0 12/14/2011 [...] encounter Miscellaneous Notes * Telephone Encounter - Willy Rodriguez PA-C - 01/12/2024 9:51 AM EDT Signed Prescriptions: Disp Refills Klor-Con M10 10 MEQ Oral Tablet Extended R*90 Tab*3 Sig: TAKE 1 TABLET BY MOUTH EVERY DAY IN THE MORNING Authorizing Provider: WILLY RODRIGUEZ * Telephone Encounter - Jami Claire LPN - 01/10/2024 1:53 PM EDTPending Prescriptions: Disp Refills Klor-Con M10 10 MEQ Oral Tablet Extended R*90 Tab*3 Sig: TAKE 1 TABLET BY MOUTH EVERY DAY IN THE MORNING * Telephone Encounter - Jami Claire LPN - 01/10/2024 1:51 PM EDT Did you pend patient's preferred pharmacy and medication before forwarding?yes Pharmacy: [id number] Pending Prescriptions: Disp Refills Klor-Con M10 10 MEQ Oral Tablet Extended *90 Tab*3 Sig: TAKE 1 TABLET BY MOUTH EVERY DAY IN THE MORNING Last Visit: 01/07/2024 (in office), Visit date not found (telemedicine) Next Visit: 04/17/2024 If no future appointments scheduled, and last appointment is greater than a year ago, please schedule patient for a follow-up appointment Last date the medication was ordered: 12/31/22 Is this request for a controlled substance? NO Urine Drug Screen:No results found. However, due to the size of the patient record, not all encounters were searched. Please check Results Review for a complete set of results. Patient Phone Numbers Labs: Lab Results Component Value Date/Time CREAT 1.3 (H) 01/07/2024 04:06 PM CREAT 1.1 (H) 07/05/2020 10:57 AM CREAT 0.8 08/14/1996 10:34 AM POTASSIUM 4.0 01/07/2024 04:06 PM POTASSIUM 4.6 07/05/2020 10:57 AM POTASSIUM 4.0 12/25/1996 04:45 PM TSH 1.92 01/07/2024 04:06 PM TSH 1.92 06/06/2020 10:35 AM LDLCALC 121 12/10/2022 09:13 AM LDLCALC 134 (H) 06/06/2020 10:35 AM LDLCALC 80. 08/14/1996 10:34 AM LDLDIRECT NOT APPLICABLE 06/06/2020 10:35 AM ALT 27 01/07/2024 04:06 PM ALT 20 06/06/2020 10:35 AM HGBA1C 5.5 06/10/2023 03:20 PM HGBA1C 5.5 07/22/2018 03:07 PM documented in this encounter Plan of Treatment Upcoming Encounters Date Type Department Care Team (Late st Contact Info) Description 01/13/2024 11:00 AM EDT Office Visit Orthopaedics [facility] [address] [place] [address] Herve Valera PA-C [address] [place] [address] [place] [address] 01/13/2024 2:05 PM EDT NeuroDiagnostic Study Neurophysiology [facility] [address] [place] [address] Donald Sevilla, DO [address] [place] [address] 01/19/2024 8:30 AM EDT Laboratory Laboratory [address] [place] [phone] [facility] [address] [place] [address] 01/20/2024 11:00 AM EDT Office Visit [facility] [address] [place] [address] Herve Valera PA-C [address] [place] [address] [place] [address] 01/24/2024 11:00 AM EDT Anticoagulation Pharmacy, [address] [place] [address] [place] [address] 01/27/2024 10:30 AM EDT Office Visit [facility] [address] [place] [address] Herve Valera PA-C [address] [place] [address] [place] [address] 02/03/2024 3:30 PM EDT Cardiac Studies Cardiac Studies, [facility] [address] [place] [address] 03/16/2024 9:00 AM EDT Imaging [facility] 2nd Floor Cardiology, [place] [address] 03/17/2024 10:00 AM EDT Imaging [facility] 2nd Floor Cardiology, [place] [address] [address] 04/17/2024 11:00 AM EDT Office Visit Cardiology, [facility] [address] [place] [address] Willy Rodriguez PA-C [address] [place] [address] 06/14/2024 1:40 PM EDT Office Visit Family Medicine [address] [place] [phone] Danika Chairez PA-C [address] [place] [address] [place] [address] 07/03/2024 11:40 AM EDT Office Visit Nutrition & Weight Management, [facility] [address] [place] [address] Tami Garrett PA-C [address] [place] [address] 08/07/2024 1:00 PM EST Laboratory Laboratory [address] [place] [phone] [place] [address] 08/14/2024 2:00 PM EST Office Visit Hematology/Oncology Maria Fernanda [place] [address] [facility] [place] [phone] Jeanette Arellano MD [address] [place] [address] 08/23/2024 2:55 PM EST Office Visit Urogynecology [facility] [address] [place] [address] Bay Ferreira MD [address] [place] [address] Nurse Zach Hernandez [address] [place] [address] 12/19/2024 1:40 PM EDT Office Visit [address] [place] [phone] Yoav Kong MD [address] [place] [address] [place] [address] 01/09/2025 10:30 AM EDT Office Visit Sleep Disorders Ctr Shayna Hernandez [place] [address] [place] [phone] Yara Beck CRNP [address] [place] [address] Scheduled Procedures Name Priority Associated Diagnoses Date/Ti me COLONOSCOPY FLEXIBLE PROXIMAL DIAGNOSTIC Recall Colon cancer screening Health Maintenance Due Date Last Done Comments Depression Screening 03/28/2022 03/28/2021 DTaP,Tdap,and Td Vaccines (2 - Td or Tdap) 06/14/2022 06/14/2012, 09/27/2005 Albumin/Creatinine Ratio 12/12/2023 023, 12/16/2021, 11/11/2021, Additional history exists CKD PHOS USE SMARTSET 09007 06/10/202405/22, 06/23/2022, 07/21/2021, Additional history exists GFR 07/08/2024 01/07/2024, 05/22, 10/16/2022, Additional history exists CKD HGB USE SMARTSET 08493 01/06/202501/06, 06/10/2023, 06/10/2023, Additional history exists TSH [...] as of this encounter Visit Diagnoses Diagnosis Edema documented in this encounter Advance Directives Documents on File Type Date Recorded Patient Spot Facer Expl anation Advance Directives and Livin g Will 05/20/2016 ADVANCE DIRECTIVE Power of Ambulatory Technologist 05/20/2016 POWER OF A TTORNEY Latest Code Status on File Code Status Date Activated Date Inactivated Comments Full Code 08/14/2008 10:37 AM 08/14/2008 10:38 AM Care Teams Helminthologist Relationship Specialty Start Date End Date Yoav Kong MD [address] [place] [address] [place] [address] PCP - General Family Medicine 04/09/14 documented as of this encounter
--- OUTSIDE RECORDS SUMMARY | 2024-06-16 04:18 | External Medical Summary | Summary of Care ---
Author Name Unknown Organization [facility] Address [address] [place] [facility] [place] [place] [address] Phone [phone] Care Team Providers Care Straw Hat Presser Name Role Phone Yoav Kong MD Primary Care Provide r Reason for Visit * Reason Onset Date Comments Med Request 01/11/2024 Encounter Details Date Type Department Care Team (Late st Contact Info) Description 01/11/2024 Telephone Orthopaedics, [facility] Mcmillan [address] [place] [address] Herve Valera PA-C [address] [place] [address] Med Request Allergies Active Allergy Reactions Criticality Noted Date [...] pulmonary embolism,Factor V Leiden (HCC),Anticoagulati on management encounter,longterm current use of anticoagulant therapy,Venous [...] kidney disease 07/29/2020 Overview: Per CKD protocol Taoism or spiritual beliefs affecting medical care 05/25/2019 [...] pulmonary embolism 12/20/2011 Anticoagulation management encounter 12/14/2011 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 [phone] only. * Telephone Encounter - Leanne Massey MED ASSIST - 01/11/2024 1:28 PM EDT Orthopaedics Pre-Cert Request Medication/Disease State Information: Medication: Hyaluronate- Synvisc (J7325): inject 48 mg (6 mL) once a week for 3 weeks (total of 3 injections). Route to [id number] Is there radiological proof(x-ray, cat scan, mri [...] 01/13/2024 11:00 AM EDT Office Visit Orthopaedics [address] [place] [address] Herve Valera PA-C [address] [place] [address] 01/13/2024 2:05 PM EDT NeuroDiagnostic Study Neurophysiology [address] [place] [address] Donald Sevilla, DO [address] [place] [address] 01/19/2024 8:30 AM EDT Laboratory Laboratory [address] [place] [phone] [place], [address] [place] [address] 01/20/2024 11:00 AM EDT Office Visit [facility] 132 [facility] [place] [address] Herve Valera PA-C [address] [place] [address] 01/24/2024 11:00 AM EDT Anticoagulation Pharmacy, [address] [place] [address] [place] [address] 01/27/2024 10:30 AM EDT Office Visit [facility] [address] [place] [address] Herve Valera PA-C [address] [place] [address] 02/03/2024 3:30 PM EDT Cardiac Studies Cardiac Studies, [address] [place] [address] 03/16/2024 9:00 AM EDT Imaging [facility] 2nd Floor Cardiology, [place] [facility] [place] [address] 03/17/2024 10:00 AM EDT Imaging [facility] 2nd Floor Cardiology, [place] [address] [facility] [place] [address] 04/17/2024 11:00 AM EDT Office Visit Cardiology, [facility] 132 [facility] [place] [place] [address] Daylin Diaz PA-C [address] [place] [address] 06/14/2024 1:40 PM EDT Office Visit Family Medicine [address] [place] [phone] Danika Chairez PA-C [address] [place] [address] [place] [address] 07/03/2024 11:40 AM EDT Office Visit Nutrition & Weight Management, [facility] [address] [facility] [place] [address] Tami Garrett PA-C 132 [facility] [place] [address] 08/07/2024 1:00 PM EST Laboratory Laboratory [address] [place] [phone] [facility] Lab [address] [place] [address] 08/14/2024 2:00 PM EST Office Visit [facility]ology[facility] [address] [place] [phone] Jeanette Arellano MD [address] [place] [address] 08/23/2024 2:55 PM EST Office Visit Urogynecology Nico Hernandez [address] [place] [address] Bay Ferreira MD [address] [place] [address] Nurse Zach Hernandez [facility] [place] [address] 12/19/2024 1:40 PM EDT Office Visit Family Medicine [address] [place] [phone] Yoav Kong MD [address] [place] [address] [place] [address] 01/09/2025 10:30 AM EDT Office Visit Sleep Disorders Ctr Shayna Hernandez [place] [facility] [place] [phone] Yara Beck CRNP [address] [facility] [place] [address] Scheduled Procedures Name Priority Associated Diagnoses Date/Ti me COLONOSCOPY FLEXIBLE PROXIMAL DIAGNOSTIC Recall Colon cancer screening Health Maintenance Due Date Last Done Comments Depression Screening 03/28/2022 03/28/2021 DTaP,Tdap,and Td Vaccines (2 - Td or Tdap) 06/14/2022 06/14/2012, 09/27/2005 Albumin/Creatinine Ratio 12/12/2023 023, 12/16/2021, 11/11/2021, Additional history exists CKD PHOS USE SMARTSET 26008 06/10/202405/22, 06/23/2022, 07/21/2021, Additional history exists GFR 07/08/2024 01/07/2024, 05/22, 10/16/2022, Additional history exists CKD HGB USE SMARTSET 52740 01/06/202501/06, 06/10/2023, 06/10/2023, Additional history exists TSH [...] Documents on File Type Date Recorded Patient Inorganic Chemistry Teacher Expl anation Advance Directives and Livin g Will 05/20/2016 ADVANCE DIRECTIVE Power of Production Operator 05/20/2016 POWER OF A TTORNEY Latest Code Status on File Code Status Date Activated Date Inactivated Comments Full Code 08/14/2008 10:37 AM 08/14/2008 10:38 AM Care Teams Straw Hat Presser Relationship Specialty Start Date End Date Yoav Kong MD [address] [place] [address] [place] [address] PCP - General Family Medicine 04/09/14 documented as of this encounter
--- OUTSIDE RECORDS SUMMARY | 2024-06-16 04:18 | External Medical Summary | Summary of Care ---
Author Name Unknown Organization [facility] Address [address] [place] [address] Phone [phone] Care Team Providers Care Electroneurodiagnostic Technician Name Role Phone Yoav Kong MD Primary Care Provide r Reason for Visit * Reason Comments Dosage Adjustment In Person (Anticoag Cl inic) Encounter Details Date Type Department Care Team (Latest Contact Info) Description 01/10/2024 11:00 AM EDT Anticoagulation Pharmacy, [address] [place] [address] [place] [address] Anticoagulation management encounter*; History of pulmonary embolism; [...] as of this encounter (statuses as of 01/10/2024) Medications Medication Sig Dispensed Refills Start Date [...] mouth in the morning. 0 2 Active Klor-Con M10 10 MEQ Oral Tablet Extended Release (potassium chloride ER)Indications:Edema TAKE 1 TABLET BY MOUTH EVERY DAY IN THE MORNING 90 Tablet 3 3 Active high fiber LIQD Take by mouth. 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,Venous thrombosis TAKE [...] on 01/07/2024 Torsemide 20 MG Oral Tablet (Demadex)Indications: Diastolic dysfunction TAKE 1 TABLET BY MOUTH EVERY DAY IN THE MORNING 90 Tablet 3 4 Active Hospital, Clinic, or Other Facility Administered Medication Ordered Dose Route Frequency Start Date End Date Status Hylan (Synvisc) inj 16 mgIndications:Primary osteoarthritis of right knee 16 mg IX QWEEK 07/08/2023 Active documented as of this encounter (statuses as of 01/10/2024) Active Problems Problem Noted Date Diagnosed Date [...] as of this encounter (statuses as of 01/10/2024) Resolved Problems Problem Noted Date Diagnosed Date [...] as of this encounter (statuses as of 01/10/2024) Immunizations Name Administration Dates Next Due COVID-19 [...] * Kamala Tijerina, [facility] - 01/10/2024 11:03 AM EDT Images from the original note were not included. Medication Therapy Disease Management - Anticoagulation Patient: Linette Trujillo | : 1945 Subjective Patient-Reported Symptoms: Patient Findings Positives: Change in diet/appetite (Increase in Vit K) Negatives: Signs/symptoms of thrombosis, Signs/symptoms of bleeding, Change in health, Change in alcohol use, Change in activity, Upcoming invasive procedure, Missed doses, Extra doses, Change in medications, Bruising Objective Current Warfarin Dose As of 01/10/2024 Warfarin maintenance plan: 2 mg (2 mg x 1) every day INR Result As of 01/10/2024 INR goal: 2.0-3.0 INR used for dosin.8 (01/10/2024) Assessment & Plan Warfarin Plan As of 01/10/2024 Full warfarin instructions: 01/09: 4 mg; Otherwise 2 mg every day Next INR check: 01/24/2024 Repeat PT/INR in 2 week(s) Weekly dose: not changed Additional Dosing Information: Description Eats a green smoothie each day Kamala Tijerina [facility] Clinical Pharmacist 01/10/2024, 11:03 AM documented in this encounter Plan of Treatment Upcoming Encounters Date Type Department Care Team (Late st Contact Info) Description 01/13/2024 11:00 AM EDT Office Visit Orthopaedics [facility] [address] [place] [address] Herve Valera PA-C [address] [place] [address] 01/13/2024 2:05 PM EDT NeuroDiagnostic Study Neurophysiology [facility] [address] [place] [address] Donald Sevilla DO 200 [facility] [place] [address] 01/19/2024 8:30 AM EDT Laboratory Laboratory [address] [place] [phone] [place] [address] 01/20/2024 11:00 AM EDT Office Visit Orthopaedics [facility] 132 [facility] [place] [address] Herve Valera PA-C [address] [place] [address] 01/24/2024 11:00 AM EDT Anticoagulation Pharmacy, [address] [place] [address] [place] [address] 01/27/2024 10:30 AM EDT Office Visit Orthopaedics [facility] 132 [facility] [place] [address] Herve Valera PA-C [address] [place] [address] 04/17/2024 11:00 AM EDT Office Visit Cardiology, [facility] 132 [facility] [place] [address] Daylin Diaz PA-C 132 [facility] [place] [address] 06/14/2024 1:40 PM EDT Office Visit Family Medicine [address] [place] [phone] Danika Chairez PA-C [address] [place] [address] [place] [address] 07/03/2024 11:40 AM EDT Office Visit Nutrition & Weight Management, [facility] [address] [place] [address] Tami Garrett PA-C [address] [place] [address] 08/07/2024 1:00 PM EST Laboratory Laboratory [address] [place] [phone] [place] [address] 08/14/2024 2:00 PM EST Office Visit Hematology/Oncology [facility] [address] [place] [phone] Jeanette Arellano MD [address] [place] [address] 08/23/2024 2:55 PM EST Office Visit Urogynecology [facility] [address] [place] [address] Bay Ferreira MD [address] [place] [address] Nurse Zach Hernandez [address] [place] [address] 12/19/2024 1:40 PM EDT Office Visit Family Medicine [address] [place] [phone] Yoav Kong MD [address] [place] [address] [place] [address] 01/09/2025 10:30 AM EDT Office Visit Sleep Disorders Ctr [facility] [address] [place] [phone] Yara Beck CRNP [address] [place] [address] Scheduled Procedures Name Priority Associated Diagnoses Date/Ti me COLONOSCOPY FLEXIBLE PROXIMAL DIAGNOSTIC Recall Colon cancer screening Health Maintenance Due Date Last Done Comments Depression Screening 03/28/2022 03/28/2021 DTaP,Tdap,and Td Vaccines (2 - Td or Tdap) 06/14/2022 06/14/2012, 09/27/2005 Albumin/Creatinine Ratio 12/12/2023 023, 12/16/2021, 11/11/2021, Additional history exists CKD PHOS USE SMARTSET 63152 06/10/202405/22, 06/23/2022, 07/21/2021, Additional history exists GFR 07/08/2024 01/07/2024, 05/22, 10/16/2022, Additional history exists CKD HGB USE SMARTSET 51771 01/06/202501/06, 06/10/2023, 06/10/2023, Additional history exists TSH [...] Comments INR FINGERSTICK, POINT OF CARE STAT 01/10/2024 11:06 AM EDT History of pulmonary embolism Factor V Leiden (HCC) Anticoagulation management encounter documented in this encounter Results * INR FINGERSTICK, POINT OF CARE (01/10/2024 11:06 AM EDT) Fingerstick INR 1.8 INR 11:08 AM EDT [facility] [place] [id number] Blood 01/10/2024 11:0 6 AM EDT 01/10/2024 11:08 AM EDT Narrative [facility] [place] 55-00 - 01/10/2024 11:08 AM EDT Therapeutic ranges for non-operative patients: Prophylaxsis/treatment of DVT: (Range:2.0-3.0) Treatment of pulmonary embolism:(Range:2.0-3.0) Prevention of systemic embolism from: -tissue heart valves -acute myocardial infarction -valvular heart disease -atrial fibrillation (Range: 2.0-3.0) Mechanical prosthetic valves: (Range: 2.5-3.5) Kamala Tijerina [facility] LAB POINT OF CARE TEST DOCKED DEVICE UNSOLICITED RESULTS [facility] [place] [address] [place] [address] [place] [address] documented in this encounter Visit Diagnoses Diagnosis Anticoagulation management encounter- Primary Encounter for therapeutic drug monitoring History of pulmonary embolism Personal history of pulmonary embolism Factor V Leiden (HCC) Primary hypercoagulable state documented in this encounter Advance Directives Documents on File Type Date Recorded Patient First Aid Nurse Expl anation Advance Directives and Karrie g Will 05/20/2016 ADVANCE DIRECTIVE Power of Card Fixer 05/20/2016 POWER OF A TTORNEY Latest Code Status on File Code Status Date Activated Date Inactivated Comments Full Code 08/14/2008 10:37 AM 08/14/2008 10:38 AM Care Teams Electroneurodiagnostic Technician Relationship Specialty Start Date End Date Yoav Kong MD [address] [place] [address] [place] [address] PCP - General Family Medicine 04/09/14 documented as of this encounter
--- OUTSIDE RECORDS SUMMARY | 2024-06-16 04:18 | External Medical Summary | Summary of Care ---
Author Name Unknown Organization [facility] Address [address] [place] [address] Phone [phone] Care Team Providers Care Workday Manager Name Role Phone Yoav Kong MD Primary Care Provide r Encounter Details Date Type Department Care Team (Late st Contact Info) Description 01/12/2024 Telephone Pulmonary Medicine, Health system [address] [place] [address] Yara Beck CRNP [address] [place] [address] Allergies Active Allergy Reactions Criticality Noted Date [...] LEG SYMPTOMS 90 Tablet 3 4 Active Torsemide 20 [...] encounter Miscellaneous Notes * Telephone Encounter - Mercedes Cárdenas OSA - 01/12/2024 7:47 AM EDT Faxed adjustment CPAP order to [facility] documented in this encounter Plan of Treatment Upcoming Encounters Date Type Department Care Team (Late st Contact Info) Description 01/13/2024 11:00 AM EDT Office Visit [facility] 132 [facility] [place] [address] Herve Valera PA-C [address] [place] [address] [place] [address] 01/13/2024 2:05 PM EDT NeuroDiagnostic Study Neurophysiology [facility] 132 [facility] [place] [address] Donald Sevilla, DO [address] [place] [address] 01/19/2024 8:30 AM EDT Laboratory Laboratory [address] [place] [phone] [place] [address] 01/20/2024 11:00 AM EDT Office Visit [facility] 132 [facility] [place] [address] Herve Valera PA-C [address] [place] [address] 01/24/2024 11:00 AM EDT Anticoagulation Pharmacy, [address] [place] [address] [place] [address] 01/27/2024 10:30 AM EDT Office Visit [facility] 132 [facility] [place] [address] Herve Valera PA-C [address] [place] [address] [place] [address] 02/03/2024 3:30 PM EDT Cardiac Studies Cardiac Studies, Health system 132 [facility] [place] [address] 03/16/2024 9:00 AM EDT Imaging [facility] 2nd Floor Cardiology, [place] 132 [facility] [place] [address] 03/17/2024 10:00 AM EDT Imaging [facility] 2nd Floor Cardiology, [place] 132 [facility] [place] [address] 04/17/2024 11:00 AM EDT Office Visit Cardiology, Health system 132 [facility] [place] [address] Daylin Diaz PA-C 132 [facility] [place] [address] 06/14/2024 1:40 PM EDT Office Visit Family Medicine [address] [place] [phone] Danika Chairez PA-C [address] [place] [address] [place] [address] 07/03/2024 11:40 AM EDT Office Visit Nutrition & Weight Management, Health system 132 [facility] [place] [address] Tami Garrett PA-C [address] [place] [address] 08/07/2024 1:00 PM EST Laboratory Laboratory [address] [place] [phone] [address] [place] [address] 08/14/2024 2:00 PM EST Office Visit Hematology/Oncology Juan C Moody [place] [address] [place] [phone] Jeanette Arellano MD [address] [place] [address] 08/23/2024 2:55 PM EST Office Visit Urogynecology Nico Alfonsos [address] [facility] [place] [address] Bay Ferreira MD [address] [place] [address] Nurse Zach Hernandez [address] [place] [address] 12/19/2024 1:40 PM EDT Office Visit Family Medicine [address] [phone] Yoav Kong MD [address] [place] [address] [place] [address] 01/09/2025 10:30 AM EDT Office Visit Sleep Disorders Ctr Shayna Hernandez [place] 132 [facility] [place] [phone] Yara Beck CRNP 132 [facility] [place] [address] Scheduled Procedures Name Priority Associated Diagnoses Date/Ti me COLONOSCOPY FLEXIBLE PROXIMAL DIAGNOSTIC Recall Colon cancer screening Health Maintenance Due Date Last Done Comments Depression Screening 03/28/2022 03/28/2021 DTaP,Tdap,and Td Vaccines (2 - Td or Tdap) 06/14/2022 06/14/2012, 09/27/2005 Albumin/Creatinine Ratio 12/12/2023 023, 12/16/2021, 11/11/2021, Additional history exists CKD PHOS USE SMARTSET 78081 06/10/202405/22, 06/23/2022, 07/21/2021, Additional history exists GFR 07/08/2024 01/07/2024, 05/22, 10/16/2022, Additional history exists CKD HGB USE SMARTSET 17111 01/06/202501/06, 06/10/2023, 06/10/2023, Additional history exists TSH [...] Documents on File Type Date Recorded Patient Calciner Feeder Expl anation Advance Directives and Livin g Will 05/20/2016 ADVANCE DIRECTIVE Power of Care Professionals 05/20/2016 POWER OF A TTORNEY Latest Code Status on File Code Status Date Activated Date Inactivated Comments Full Code 08/14/2008 10:37 AM 08/14/2008 10:38 AM Care Teams Workday Manager Relationship Specialty Start Date End Date Yoav Kong MD [address] [place] [address] [place] [address] PCP - General Family Medicine 04/09/14 documented as of this encounter
--- OUTSIDE RECORDS SUMMARY | 2024-06-16 04:18 | External Medical Summary | Summary of Care ---
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 [phone] only. * Telephone Encounter - Leanne Massey MED ASSIST - 01/11/2024 1:28 PM EDT Orthopaedics Pre-Cert Request Medication/Disease State Information: Medication: Hyaluronate- Synvisc (J7325): inject 48 mg (6 mL) once a week for 3 weeks (total of 3 injections). Route to [id number] Is there radiological proof(x-ray, cat scan, mri [...] 01/13/2024 11:00 AM EDT Office Visit Orthopaedics [facility] 132 [facility] [place] [address] Herve Valera PA-C [address] [place] [phone] 01/13/2024 2:05 PM EDT NeuroDiagnostic Study Neurophysiology [facility] 132 [place] [address] Donald Sevilla, DO [address] [place] [address] 01/19/2024 8:30 AM EDT Laboratory Laboratory [address] [place] [phone] [address] [place] [address] 01/20/2024 11:00 AM EDT Office Visit Orthopaedics [facility] 132 [place] [address] Herve Valera PA-C [address] [place] [address] 01/24/2024 11:00 AM EDT Anticoagulation Pharmacy, [address] [place] [address] [place] [address] 01/27/2024 10:30 AM EDT Office Visit Orthopaedics [facility] 132 [place] [address] Herve Valera PA-C [address] [place] [address] 02/03/2024 3:30 PM EDT Cardiac Studies Cardiac Studies, [facility] [place] [address] 03/16/2024 9:00 AM EDT Imaging [facility] 2nd Floor Cardiology, [place] [address] 03/17/2024 10:00 AM EDT Imaging [facility] 2nd Floor Cardiology, [place] [address] [place] [address] 04/17/2024 11:00 AM EDT Office Visit Cardiology, [facility] [address] [place] [address] Daylin Diaz PA-C [address] [place] [address] 06/14/2024 1:40 PM EDT Office Visit Family Medicine [address] [place] [phone] Danika Chairez PA-C [address] [place] [address] [place] [address] 07/03/2024 11:40 AM EDT Office Visit Nutrition & Weight Management, [facility] [address] [place] [address] Tami Garrett PA-C [address] [place] [address] 08/07/2024 1:00 PM EST Laboratory Laboratory [address] [place] [phone] [place], Lab [address] [place] [address] 08/14/2024 2:00 PM EST Office Visit Hematology/Oncology Juan C Moody [place] [address] [place] [phone] Jeanette Arellano MD [address] [place] [address] 08/23/2024 2:55 PM EST Office Visit Urogynecology [facility] [address] [place] [address] Bay Ferreira MD [address] [place] [address] Nurse Zach Hernandez [address] [place] [address] 12/19/2024 1:40 PM EDT Office Visit Family Medicine [address] [place] [phone] Yoav Kong MD [address] [place] [address] [place] [address] 01/09/2025 10:30 AM EDT [facility] [address] [place] [phone] Yara Beck CRNP [address] [place] [address] Scheduled Procedures Name Priority Associated Diagnoses Date/Ti me COLONOSCOPY FLEXIBLE PROXIMAL DIAGNOSTIC Recall Colon cancer screening Health Maintenance Due Date Last Done Comments Depression Screening 03/28/2022 03/28/2021 DTaP,Tdap,and Td Vaccines (2 - Td or Tdap) 06/14/2022 06/14/2012, 09/27/2005 Albumin/Creatinine Ratio 12/12/2023 023, 12/16/2021, 11/11/2021, Additional history exists CKD PHOS USE SMARTSET 05248 06/10/202405/22, 06/23/2022, 07/21/2021, Additional history exists GFR 07/08/2024 01/07/2024, 05/22, 10/16/2022, Additional history exists CKD HGB USE SMARTSET 74603 01/06/202501/06, 06/10/2023, 06/10/2023, Additional history exists TSH [...] Documents on File Type Date Recorded Patient Loan Approver Expl anation Advance Directives and Livin g Will 05/20/2016 ADVANCE DIRECTIVE Power of Ivf Embryologist 05/20/2016 POWER OF A TTORNEY Latest Code Status on File Code Status Date Activated Date Inactivated Comments Full Code 08/14/2008 10:37 AM 08/14/2008 10:38 AM Care Teams Counter Helper Relationship Specialty Start Date End Date Yoav Kong MD [address] [place] [address] [place] [address] PCP - General Family Medicine 04/09/14 documented as of this encounter
--- OUTSIDE RECORDS SUMMARY | 2024-06-16 04:18 | External Medical Summary | Summary of Care ---
Author Name Unknown Organization [facility] Address [address] [place] [address] Phone [phone] Care Team Providers Care Teller Vault Name Role Phone Yoav Kong MD Primary Care Provide r Reason for Visit * Reason Comments eRx-Medication Refill Encounter Details Date Type Department Care Team (Late st Contact Info) Description 01/08/2024 Refill Family Medicine [address] [phone] Yoav Kong MD [address] [place] [address] [place] [address] Diastolic dysfunction Allergies Active Allergy Reactions Criticality Noted Date [...] LEG SYMPTOMS 90 Tablet 3 03/30/20 23 Active Warfarin Sodium 2 MG Oral Tablet (Coumadin)Indicatio ns:History of pulmonary embolism,Factor V Leiden (HCC),Anticoagulati on management encounter,penitentiary current use of anticoagulant therapy,Venous thrombosis TAKE [...] MORNING 90 Tablet 3 01/10/20 24 Active Torsemide 20 MG Oral Tablet [...] kidney disease 07/29/2020 Overview: Per CKD protocol Hinduism or spiritual beliefs affecting medical care 05/25/2019 [...] 07/06/2016 Spider veins of both lower extremities 08/01/201 6 Hypothyroidism 07/09/2014 ADVANCE DIRECTIVE INFORMATION 06/01/2012 Overview: Yes, Copy scanned at patient level in the electronic medical record.(Go to Action, Patient File to view) Patient aware they must notify their healthcare provider of changes. 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 0 [...] encounter Miscellaneous Notes * Telephone Encounter - Bay Judd [facility] - 01/10/2024 9:46 AM EDT Signed Prescriptions: Disp Refills Torsemide 20 MG Oral Tablet (Demadex) 90 Tab*3 Sig: TAKE 1 TABLET BY MOUTH EVERY DAY IN THE MORNINGAuthorizing Provider: YOAV KONG User: BAY JUDD documented in this encounter Plan of Treatment Upcoming Encounters Date Type Department Care Team (Late st Contact Info) Description 01/10/2024 11:00 AM EDT Anticoagulation Pharmacy, [address] [place] [address] [place] [address] 01/13/2024 11:00 AM EDT Office Visit Orthopaedics [facility] 132 [facility] [place] [address] Herve Valera PA-C [address] [place] [address] 01/13/2024 2:05 PM EDT NeuroDiagnostic Study Neurophysiology [facility] [place] [address] Donald Sevilla, DO [address] [place] [address] 01/19/2024 8:30 AM EDT Laboratory Laboratory [address] [place] [phone] [place] [address] 01/20/2024 11:00 AM EDT Office Visit Orthopaedics [facility] [place] [address] Herve Valera PA-C [address] [place] [address] 01/27/2024 10:30 AM EDT Office Visit Orthopaedics [facility] [address] [place] [address] Herve Valera PA-C [address] [place] [address] 04/17/2024 11:00 AM EDT Office Visit Cardiology, [facility] 132 [facility] [place] [address] Daylin Diaz PA-C [address] [place] [address] 06/14/2024 1:40 PM EDT Office Visit Family Medicine [address] [place] [phone] Danika Chairez PA-C [address] [place] [address] [place] [address] 07/03/2024 11:40 AM EDT Office Visit Nutrition & Weight Management, [facility] 132 [facility] [place] [address] Tami Garrett PA-C [address] [place] [address] 08/07/2024 1:00 PM EST Laboratory Laboratory [address] [place] [address] [address] [place] [address] 08/14/2024 2:00 PM EST Office Visit Hematology/Oncology [facility] [place] [address] [place] [phone] Jeanette Arellano MD [address] [place] [address] 08/23/2024 2:55 PM EST Office Visit Urogynecology Nico Hernandez [address] [place] [address] Bay Ferreira MD [address] [place] [address] Nurse Zach Hernandez [address] [place] [address] 12/19/2024 1:40 PM EDT Office Visit Family Medicine [address] [place] [phone] Yoav Kong MD [address] [place] [address] [place] [address] 01/09/2025 10:30 AM EDT Office Visit Sleep Disorders Ctr Shayna Hernandez [place] [address] [place] [phone] Yara Beck CRNP [address] [place] [address] Scheduled Procedures Name Priority Associated Diagnoses Date/Ti me COLONOSCOPY FLEXIBLE PROXIMAL DIAGNOSTIC Recall Colon cancer screening Health Maintenance Due Date Last Done Comments Depression Screening 03/28/2022 03/28/2021 DTaP,Tdap,and Td Vaccines (2 - Td or Tdap) 06/14/2022 06/14/2012, 09/27/2005 Albumin/Creatinine Ratio 12/12/2023 023, 12/16/2021, 11/11/2021, Additional history exists CKD PHOS USE SMARTSET 60012 06/10/202405/22, 06/23/2022, 07/21/2021, Additional history exists GFR 07/08/2024 01/07/2024, 05/22, 10/16/2022, Additional history exists CKD HGB USE SMARTSET 40111 01/06/202501/06, 06/10/2023, 06/10/2023, Additional history exists TSH [...] as of this encounter Visit Diagnoses Diagnosis Diastolic dysfunction Heart disease, unspecified documented in this encounter Advance Directives Documents on File Type Date Recorded 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
--- OUTSIDE RECORDS SUMMARY | 2024-06-16 04:18 | External Medical Summary | Summary of Care ---
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 COMMON MIGRAINE WITHOUT MENTION OF INTRACTABLE M IGRAINE 01/01/2003 GENERALIZED ANXIETY DIS 12/19/2001 TEMPOROMANDIBULAR JOINT DISORDERS, UNSPECIFIED Mitral valve disorder Gastroesophageal reflux disease without esophagi tis Other allergic rhinitis Overview: ICD-10 update of inactive term Mitral valve prolapse documented as of this encounter (statuses as of 01/11/2024) Resolved Problems Problem Noted Date Diagnosed Date [...] as of this encounter (statuses as of 01/11/2024) Immunizations Name Administration Dates Next Due COVID-19 [...] Miscellaneous Notes * Telephone Encounter - Leanne Massey, MED ASSIST - 01/11/2024 1:28 PM EDT Orthopaedics Pre-Cert Request Medication/Disease State Information: Medication: Hyaluronate- Synvisc (J7325): inject 48 mg (6 mL) once a week for 3 weeks (total of 3 injections). Route to [id number] Is there radiological proof(x-ray, cat scan, mri [...] 01/13/2024 11:00 AM EDT Office Visit Orthopaedics [facility] [place] [address] Herve Valera PA-C [address] [place] [address] 01/13/2024 2:05 PM EDT NeuroDiagnostic Study Neurophysiology [facility] [address] [place] [address] Donald Sevilla, DO [address] [place] [address] 01/19/2024 8:30 AM EDT Laboratory Laboratory [address] [place] [phone] [place] [address] 01/20/2024 11:00 AM EDT Office Visit Orthopaedics [facility] [address] [place] [address] Herve Valera PA-C [address] [place] [address] 01/24/2024 11:00 AM EDT Anticoagulation Pharmacy, [address] [place] [address] [place] [address] 01/27/2024 10:30 AM EDT Office Visit Orthopaedics [facility] [place] [address] Herve Valera PA-C [address] [place] [address] 02/03/2024 3:30 PM EDT Cardiac Studies Cardiac Studies, [facility] 132 [facility] [place] [address] 03/16/2024 9:00 AM EDT Imaging [facility] 2nd Floor Cardiology, [address] [place] [address] 03/17/2024 10:00 AM EDT Imaging [facility] 2nd Floor Cardiology, [place] 132 [facility] [place] [address] 04/17/2024 11:00 AM EDT Office Visit Cardiology, [facility] [address] [place] [address] Daylin Diaz PA-C 132 [place] [address] 06/14/2024 1:40 PM EDT Office Visit Family Medicine [address] [place] [phone] Danika Chairez PA-C [address] [place] [address] [place] [address] 07/03/2024 11:40 AM EDT Office Visit Nutrition & Weight Management, [facility] [address] [place] [address] Tami Garrett PA-C [address] [place] [address] 08/07/2024 1:00 PM EST Laboratory Laboratory [address] [place] [phone] [place], [address] [place] [address] 08/14/2024 2:00 PM EST Office Visit Hematology/Oncology [facility] [address] [place] [phone] Jeanette Arellano MD [address] [place] [address] 08/23/2024 2:55 PM EST Office Visit Urogynecology [facility] [address] [place] [address] Bay Ferreira MD [address] [place] [address] Nurse Zach Hernandez [address] [place] [address] 12/19/2024 1:40 PM EDT Office Visit Family Medicine [address] [phone] Yoav Kong MD [address] [place] [address] [place] [address] 01/09/2025 10:30 AM EDT Office Visit Sleep Disorders Ctr [facility] [address] [place] [phone] Yara Beck CRNP [address] [place] [address] Scheduled Procedures Name Priority Associated Diagnoses Date/Ti me COLONOSCOPY FLEXIBLE PROXIMAL DIAGNOSTIC Recall Colon cancer screening Health Maintenance Due Date Last Done Comments Depression Screening 03/28/2022 03/28/2021 DTaP,Tdap,and Td Vaccines (2 - Td or Tdap) 06/14/2022 06/14/2012, 09/27/2005 Albumin/Creatinine Ratio 12/12/2023 023, 12/16/2021, 11/11/2021, Additional history exists CKD PHOS USE SMARTSET 09291 06/10/202405/22, 06/23/2022, 07/21/2021, Additional history exists GFR 07/08/2024 01/07/2024, 05/22, 10/16/2022, Additional history exists CKD HGB USE SMARTSET 62933 01/06/202501/06, 06/10/2023, 06/10/2023, Additional history exists TSH [...] Documents on File Type Date Recorded Patient Production Control Pegboard Clerk Expl anation Advance Directives and Livin g Will 05/20/2016 ADVANCE DIRECTIVE Power of Cruise Counselor 05/20/2016 POWER OF A TTORNEY Latest Code Status on File Code Status Date Activated Date Inactivated Comments Full Code 08/14/2008 10:37 AM 08/14/2008 10:38 AM Care Teams Stamp Redemption Clerk Relationship Specialty Start Date End Date Yoav Kong MD [address] [place] [address] [place] [address] PCP - General Family Medicine 04/09/14 documented as of this encounter
--- OUTSIDE RECORDS SUMMARY | 2024-06-16 04:18 | External Medical Summary | Summary of Care ---
Author Name Unknown Organization [facility] Address [address] [place] [address] Phone [phone] Care Team Providers Care Verification Clerk Name Role Phone Yoav Kong MD Primary Care Provide r Reason for Visit * Reason Comments eRx-Medication Refill Encounter Details Date Type Department Care Team (Late st Contact Info) Description 01/08/2024 Refill Sleep Disorders Ctr [facility] [place] [phone] Eleonora Rios CRNP 132 [facility] [place] [phone] Restless legs syndrome (RLS) Allergies Active Allergy Reactions Criticality Noted Date [...] embolism,Factor V Leiden (HCC),Anticoagulati on management encounter,senior living current use of anticoagulant therapy,Venous thrombosis TAKE [...] SYMPTOMS 90 Tablet 3 01/11/20 24 Active Torsemide 20 MG Oral Tablet [...] pulmonary embolism 12/20/2011 Anticoagulation management encounter 12/14/2011 senior living current use of anticoagulant therapy 0 12/14/2011 [...] encounter Miscellaneous Notes * Telephone Encounter - Eleonora Rios CRNP - 01/11/2024 5:15 PM EDT Signed Prescriptions: Disp Refills Pramipexole Dihydrochloride 0.125 MG Oral *90 Tab*3 Sig: TAKE 1 TABLET BY MOUTH 90 MINUTES PRIOR TO TYPICAL ONSET OF RESTLESS LEG SYMPTOMSAuthorizing Provider: ELEONORA RIOS documented in this encounter Plan of Treatment Upcoming Encounters Date Type Department Care Team (Late st Contact Info) Description 01/13/2024 11:00 AM EDT [facility] 132 [facility] [place] [address] Herve Valera PA-C [address] [place] [address] [place] [address] 01/13/2024 2:05 PM EDT NeuroDiagnostic Study Neurophysiology [facility] [address] [place] [address] Donald Sevilla, DO [facility] [place] [address] 01/19/2024 8:30 AM EDT Laboratory Laboratory [address] [place] [phone] [address] [place] [address] 01/20/2024 11:00 AM EDT Office Visit Orthopaedics [facility] [address] [place] [address] Herve Valera PA-C [address] [place] [address] [place] [address] 01/24/2024 11:00 AM EDT Anticoagulation Pharmacy, [address] [place] [address] [place] [address] 01/27/2024 10:30 AM EDT Office Visit Orthopaedics [facility] [address] [place] [address] Herve Valera PA-C [address] [place] [address] [place] [address] 02/03/2024 3:30 PM EDT Cardiac Studies Cardiac Studies, [facility] [address] [place] [address] 03/16/2024 9:00 AM EDT Imaging [facility] 2nd Floor Cardiology, [address] [place] [address] 03/17/2024 10:00 AM EDT Imaging [facility] 2nd Floor Cardiology, [place] 132 [facility] [place] [address] 04/17/2024 11:00 AM EDT Office Visit Cardiology, [facility] [address] [place] [address] Daylin Diaz PA-C 132 [place] [address] 06/14/2024 1:40 PM EDT Office Visit Family Medicine [address] [place] [phone] Danika Chairez PA-C [address] [place] [address] [place] [address] 07/03/2024 11:40 AM EDT Office Visit Nutrition & Weight Management, [facility] [address] [place] [address] Tami Garrett PA-C 132 [place] [address] 08/07/2024 1:00 PM EST Laboratory Laboratory [address] [place] [phone] [place], [address] [place] [address] 08/14/2024 2:00 PM EST Office Visit Hematology/Oncology [facility] [address] [place] [phone] Jeanette Arellano MD [address] [place] [address] 08/23/2024 2:55 PM EST Office Visit Urogynecology [facility] [address] [place] [address] Bay Ferreira MD [address] [place] [address] Nurse Zach Hernandez [address] [place] [address] 12/19/2024 1:40 PM EDT Office Visit Family Medicine [address] [place] [phone] Yoav Kong MD [address] [place] [address] [place] [address] 01/09/2025 10:30 AM EDT Office Visit Sleep Disorders Ctr [facility] [address] [place] [phone] Eleonora Rios CRNP [address] [place] [address] Scheduled Procedures Name Priority Associated Diagnoses Date/Ti me COLONOSCOPY FLEXIBLE PROXIMAL DIAGNOSTIC Recall Colon cancer screening Health Maintenance Due Date Last Done Comments Depression Screening 03/28/2022 03/28/2021 DTaP,Tdap,and Td Vaccines (2 - Td or Tdap) 06/14/2022 06/14/2012, 09/27/2005 Albumin/Creatinine Ratio 12/12/2023 023, 12/16/2021, 11/11/2021, Additional history exists CKD PHOS USE SMARTSET 69832 06/10/202405/22, 06/23/2022, 07/21/2021, Additional history exists GFR 07/08/2024 01/07/2024, 05/22, 10/16/2022, Additional history exists CKD HGB USE SMARTSET 14188 01/06/202501/06, 06/10/2023, 06/10/2023, Additional history exists TSH [...] as of this encounter Visit Diagnoses Diagnosis Restless legs syndrome (RLS) documented in this encounter Advance Directives Documents on File Type Date Recorded Patient Corrosion Control Specialist Expl anation Advance Directives and Livmarbella g Will 05/20/2016 ADVANCE DIRECTIVE Power of Pie Filler 05/20/2016 POWER OF A TTORNEY Latest Code Status on File Code Status Date Activated Date Inactivated Comments Full Code 08/14/2008 10:37 AM 08/14/2008 10:38 AM Care Teams Verification Clerk Relationship Specialty Start Date End Date Yoav Kong MD [address] [place] [address] [place] [address] PCP - General Family Medicine 04/09/14 documented as of this encounter
--- OUTSIDE RECORDS SUMMARY | 2024-06-16 04:18 | External Medical Summary | Summary of Care ---
Author Name Unknown Organization [facility] Address [address] [place] [address] Phone [phone] Care Team Providers Care Teacher Early Childhood Development Name Role Phone Yoav Kong MD Primary Care Provide r Reason for Visit * Reason Onset Date Comments Advice 01/09/2024 Encounter Details Date Type Department Care Team (Late st Contact Info) Description 01/09/2024 Telephone Cardiology, [facility] [address] Services, Scheduling [address] [place] [address] Advice Allergies Active Allergy Reactions Criticality Noted Date [...] kidney disease 07/29/2020 Overview: Per CKD protocol Mormonism or spiritual beliefs affecting medical care 05/25/2019 [...] pulmonary embolism 12/20/2011 Anticoagulation management encounter 12/14/2011 processing lead 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 Plz contact pt and advise [phone] Thank you documented in this encounter Plan of Treatment Upcoming Encounters Date Type Department Care Team (Late st Contact Info) Description 01/10/2024 11:00 AM EDT Anticoagulation Pharmacy, [address] [place] [address] [place] [address] 01/13/2024 11:00 AM EDT Office Visit Orthopaedics [facility] 132 [facility] [place] [address] Herve Valera PA-C [address] [place] [address] 01/13/2024 2:05 PM EDT NeuroDiagnostic Study Neurophysiology [facility] [place] [address] Donald Sevilla, DO 200 [facility] [place] [address] 01/19/2024 8:30 AM EDT Laboratory Laboratory [address] [place] [phone] [facility] [address] [place] [address] 01/20/2024 11:00 AM EDT Office Visit [facility] 132 [facility] [place] [address] Herve Valera PA-C [address] [place] [address] 01/27/2024 10:30 AM EDT Office Visit Orthopaedics [facility] [address] [place] [address] Herve Valera PA-C [address] [place] [address] 04/17/2024 11:00 AM EDT Office Visit Cardiology, [facility] [address] [place] [address] Daylin Diaz PA-C [address] [place] [address] 06/14/2024 1:40 PM EDT Office Visit Family Medicine [address] [place] [phone] Danika Chairez PA-C [address] [place] [address] [place] [address] 07/03/2024 11:40 AM EDT Office Visit Nutrition & Weight Management, [facility] [address] [place] [address] Tami Garrett PA-C [address] [place] [place] [address] 08/07/2024 1:00 PM EST Laboratory Laboratory [address] [place] [phone] [place] [address] 08/14/2024 2:00 PM EST Office Visit Hematology/Oncology [facility] [place] [address] [place] [phone] Jeanette Arellano MD [address] [place] [address] 08/23/2024 2:55 PM EST Office Visit Urogynecology [facility] [address] [place] [address] Bay Ferreira MD [address] [place] [address] Nurse Zach Hernandez [address] [place] [address] 12/19/2024 1:40 PM EDT Office Visit Family Medicine [address] [place] [phone] Yoav Kong MD [address] [place] [address] [place] [address] 01/09/2025 10:30 AM EDT [facility] [address] [place] [phone] Yara Beck CRNP [address] [place] [address] Scheduled Procedures Name Priority Associated Diagnoses Date/Ti me COLONOSCOPY FLEXIBLE PROXIMAL DIAGNOSTIC Recall Colon cancer screening Health Maintenance Due Date Last Done Comments Depression Screening 03/28/2022 03/28/2021 DTaP,Tdap,and Td Vaccines (2 - Td or Tdap) 06/14/2022 06/14/2012, 09/27/2005 Albumin/Creatinine Ratio 12/12/2023 023, 12/16/2021, 11/11/2021, Additional history exists CKD PHOS USE SMARTSET 03825 06/10/202405/22, 06/23/2022, 07/21/2021, Additional history exists GFR 07/08/2024 01/07/2024, 05/22, 10/16/2022, Additional history exists CKD HGB USE SMARTSET 40893 01/06/202501/06, 06/10/2023, 06/10/2023, Additional history exists TSH [...] Documents on File Type Date Recorded Patient 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
--- OUTSIDE RECORDS SUMMARY | 2024-06-16 04:19 | External Medical Summary ---
Author Name Unknown Address Unknown Organization K01:LABORATORY [facility] - [address] [place] [address] Laboratory Report Ordering Provider Test Date Status PACO ALFARO 01/07/2024 16:06:43 Final Observation Date Value Abnormality Reference (Units ) Status Magnesium 01/07/2024 16:06:43 2.4 1.5-2.6 (m g/dL) Final Performing Location [facility] - [address] [place] [address]
--- OUTSIDE RECORDS SUMMARY | 2024-06-16 04:19 | External Medical Summary | Summary of Care ---
Author Name Unknown Organization [facility] Address [address] [place] [address] Phone [phone] Care Team Providers Care Rag Inspector Name Role Phone Yoav Kong MD Primary Care Provide r Reason for Visit * Reason Comments Outpatient Testing Encounter Details Date Type Department Care Team (Late st Contact Info) Description 01/07/2024 4:10 PM EDT Laboratory Laboratory, [facility] 132 [facility] [place] [phone] [facility] 132 [place] [address] Palpitations; Dyspnea on exertion; Chest pain, unspecified type Allergies Active Allergy Reactions Criticality Noted Date [...] as of this encounter (statuses as of 01/07/2024) Medications Medication Sig Dispensed Refills Start Date [...] EVERY DAY 90 Tablet 3 3 Active Torsemide 20 MG Oral Tablet (Demadex)Indications: Diastolic dysfunction TAKE 1 TABLET BY MOUTH EVERY DAY IN THE MORNING 90 Tablet 1 3 Active Levothyroxine Sodium 50 MCG Oral [...] Additional Information Patient not taking.Reported on 01/07/2024 Hospital, Clinic, or Other Facility Administered Medication Ordered Dose Route Frequency Start Date End Date Status Hylan (Synvisc) inj 16 mgIndications:Primary osteoarthritis of right knee 16 mg IX QWEEK 07/08/2023 Active documented as of this encounter (statuses as of 01/07/2024) Active Problems Problem Noted Date Diagnosed Date [...] as of this encounter (statuses as of 01/07/2024) Resolved Problems Problem Noted Date Diagnosed Date [...] as of this encounter (statuses as of 01/07/2024) Immunizations Name Administration Dates Next Due COVID-19 [...] Description 01/10/2024 11:00 AM EDT Anticoagulation Pharmacy, [address] [place] [address] [place] [address] 01/13/2024 11:00 AM EDT Office Visit [facility] 132 [facility] [place] [address] Herve Valera PA-C [address] [place] [address] 01/13/2024 2:05 PM EDT NeuroDiagnostic Study Neurophysiology [facility] 132 [facility] [place] [address] Donald Sevilla, DO [address] [place] [address] 01/19/2024 8:30 AM EDT Laboratory Laboratory [address] [place] [phone] [place] [address] 01/20/2024 11:00 AM EDT Office Visit [facility] 132 [facility] [place] [address] Herve Valera PA-C [address] [place] [address] 01/27/2024 10:30 AM EDT Office Visit [facility] [address] [place] [address] Herve Valera PA-C [address] [place] [address] 04/17/2024 11:00 AM EDT Office Visit Cardiology, [facility] [address] [place] [address] Daylin Diaz PA-C [address] [place] [address] 06/14/2024 1:40 PM EDT Office Visit Family Medicine [address] [place] [phone] Danika Chairez PA-C [address] [place] [address] [place] [address] 07/03/2024 11:40 AM EDT Office Visit Nutrition & Weight Management, [facility] [address] [place] [address] Tami Garrett PA-C [address] [place] [address] 08/07/2024 1:00 PM EST Laboratory Laboratory [address] [place] [phone] [address] [place] [address] 08/14/2024 2:00 PM EST Office Visit Hematology/Oncology [facility] [place] [address] [place] [phone] Jeanette Arellano MD 200 [facility] [place] [address] 08/23/2024 2:55 PM EST Office Visit Urogynecology [facility] [address] [place] [address] Bay Ferreira MD [address] [place] [address] Nurse Zach Hernandez [address] [place] [address] 12/19/2024 1:40 PM EDT Office Visit [address] [place] [phone] Yoav Kong MD [address] [place] [address] [place] [address] 01/09/2025 10:30 AM EDT [facility] [address] [place] [phone] Yara Beck CRNP [address] [place] [phone] Pending Results Name Type Priority Associated Diagnoses Date /Time TSH WITH FREE T4 IF INDICATED Lab Routine Palpitations 01/07/2024 4:06 PM EDT COMPREHENSIVE METABOLIC PANEL Lab Routine Palpitations Dyspnea on exertion Chest pain, unspecified type 01/07/2024 4:06 PM EDT MAGNESIUM Lab Routine Palpitations Chest pain, unspecified type 01/07/2024 4:06 PM EDT CBC Lab Routine Palpitations Chest pain, unspecified type 01/07/2024 4:06 PM EDT Scheduled Procedures Name Priority Associated Diagnoses Date/Ti me COLONOSCOPY FLEXIBLE PROXIMAL DIAGNOSTIC Recall Colon cancer screening Health Maintenance Due Date Last Done Comments Depression Screening 03/28/2022 03/28/2021 DTaP,Tdap,and Td Vaccines (2 - Td or Tdap) 06/14/2022 06/14/2012, 09/27/2005 GFR 12/09/2023 06/10/2023, 09/21, 07/03/2022, Additional history exists Albumin/Creatinine Ratio 12/12/2023 023, 12/16/2021, 11/11/2021, Additional history exists CKD HGB USE SMARTSET 66352 06/10/202406/10, 06/10/2023, 10/16/2022, Additional history exists CKD PHOS USE SMARTSET 60018 06/10/202405/22, 06/23/2022, 07/21/2021, Additional history exists TSH 06/10/2024 06/10/2023, 11/19, 12/16/2021, Additional history exists DXA Scan 06/11/2027 06/11/2020, [...] as of this encounter Visit Diagnoses Diagnosis Palpitations Dyspnea on exertion Other dyspnea and respiratory abnormality Chest pain, unspecified type documented in this encounter Advance Directives Documents on File Type Date Recorded Patient Mens Locker Room Attendant Expl anation Advance Directives and Livin g Will 05/20/2016 ADVANCE DIRECTIVE Power of Benzene Washer 05/20/2016 POWER OF A TTORNEY Latest Code Status on File Code Status Date Activated Date Inactivated Comments Full Code 08/14/2008 10:37 AM 08/14/2008 10:38 AM Care Teams Rag Inspector Relationship Specialty Start Date End Date Yoav Kong MD [address] [place] [address] [place] [address] PCP - General Family Medicine 04/09/14 documented as of this encounter
--- OUTSIDE RECORDS SUMMARY | 2024-06-16 04:19 | External Medical Summary ---
Author Name Unknown Address Unknown Organization K01:[facility] [address] [place] [address] Laboratory Report Ordering Provider Test Date Status PACO ALFARO 01/07/2024 16:06:43 Final Observation Date Value Abnormality Reference (Units ) Status TSH 01/07/2024 16:06:43 1.92 0.27-4.20 (uIU/mL) Final Performing Location LABORATORY C - [address] [place] [address]
--- OUTSIDE RECORDS SUMMARY | 2024-06-16 04:19 | External Medical Summary ---
Author Name Unknown Address Unknown Organization K01:[facility] [place] [address] [facility] [address] [place] [address] Laboratory Report Ordering Provider Test Date Status PACO ALFARO 01/07/2024 16:06:43 Final Observation Date Value Abnormality Reference (Units ) Status WBC, Total 01/07/2024 16:06:43 11.02 Above high normal 4.00-10.80 (K/uL) Final RBC 01/07/2024 16:06:43 5.06 3.85-5.15 (M/uL) Final Hemoglobin 01/07/2024 16:06:43 14.6 12.0-15.3 (g/dL) Final HCT 01/07/2024 16:06:43 47.8 Above high normal 36.0-45.2 (%) Final MCV 01/07/2024 16:06:43 94.5 81.5-97.5 (fL) Final MCH 01/07/2024 16:06:43 28.9 27.0-34.0 (pg) Final MCHC 01/07/2024 16:06:43 30.5 32.0-36.0 (g/dL) Final RDW 01/07/2024 16:06:43 15.2 11.5-15.5 (%) Final Platelets 01/07/2024 16:06:43 320 140-400 (K/uL) Final MPV 01/07/2024 16:06:43 10.3 6.6-11.1 (fL) Final Nucleated erythrocytes/100 leukocytes [Ratio] in Blood by Automated count 01/07/2024 16:06:43 0 <=0 (/100 WBCs) Final Performing Location [facility] [place] [address] [place] [address]
--- OUTSIDE RECORDS SUMMARY | 2024-06-16 04:19 | External Medical Summary | Summary of Care ---
Author Name Unknown Organization [facility] Address [address] [place] [address] Phone [phone] Care Team Providers Care Institutional Commodity Analyst Name Role Phone Yoav Kong MD Primary Care Provide r Reason for Visit * Reason Comments Follow Up Restless Leg Syndrome Sleep Apnea PLMD Encounter Details Date Type Department Care Team (Late st Contact Info) Description 01/07/2024 12:00 PM EDT Office Visit Sleep Disorders Ctr [facility] [place] [phone] Yara Beck CRNP [address] [facility] [place] [phone] BIANCA on CPAP*; Restless legs syndrome (RLS) Allergies Active Allergy [...] pulmonary embolism,Factor V Leiden (HCC),Anticoagulation management encounter,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 Linette Trujillo is a 78 year old female seen today for yearly follow-up of BIANCA, RLS/PLMD. Sleep Testing/History: - PSG 03/05/2017 (wt 168): AHI 16, SpO2 <89% 4.7, PLMI 75, PLMAI 12 - Ropinirole 0.25mg caused next day sleepiness, tolerates pramipexole - 06/10/2023 ferritin 225, transferrin sat 18% Interim History: Feels that she is doing good in regards to sleep. No RLS symptoms with taking pramipexole. Taking melatonin, pramipexole 0.125 mcg, magnesium at 2100/2130. In bed 2230/2330. CPAP used nightly, duringall periods of sleep. Final wake up time 0700/0730. Rested on waking. Will nap when able but not often. Weight gain reported. Caffeine: 4 oz glass tea at lunch Nicotine: denies Alcohol: 1 shot once a month Exercise: walking with grandson Compliance Data: Report date: last 30 days ending 01/03/2024 % total days used: 100 % days used > 4 hours: 100 Average hours per day used: 8 hours 35 mins Large leak: 3 secs rAHI: 3.3 Equipment: DME Provider: mDialog Device: Intent HQ Settings: 9-14 [id number] Interface Type: FFM Humidifier: used Cleaning: By hand routinely [place] Sleepiness Scale Question 01/07/2024 12:02 PM EDT - Filed by Patient What is the chance you will doze off in the following situation? Sitting and reading No chance of dozing Watching TV Slight chance of dozing Sitting inactive in a public place, such as a theater or meeting No chance of dozing As a passenger in a car for an hour without a break Slight chance of dozing Lying down to rest in the afternoon when circumstances permit Moderate chance of dozing When sitting and talking to someone No chance of dozing When sitting quietly after lunch without alcohol No chance of dozing In a car, while stopped for a few minutes in traffic Slight chance of dozing Score (range: 0 - 24) 5 Restless Leg Syndrome Rating Scale Question 01/07/2024 12:08 PM EDT - Filed by Patient Please complete the following questions. In the past week... Overall, how would you rate the RLS discomfort in your legs or arms? Severe Overall, how would you rate the need to move around because of your RLS symptoms? Severe How severe was your sleep disturbance due to your RLS symptoms? Severe How severe was your tiredness or sleepiness during the day due to your RLS symptoms? Moderate How severe was your RLS as a whole? Severe Overall, how severe was the impact of your RLS symptoms on your ability to carry out your daily affairs, for example, carrying out a satisfactory family, home, social, school, or work? Mild How severe was your mood disturbance due to your RLS symptoms, for example, angry, depressed, sad, anxious, or irritable? None In the past week, Overall, how much relief of your RLS arm or leg discomfort did you get from moving around? Moderaterelief How often did you get RLS symptoms? Often (4 to 5 days in 1 week) When you had RLS symptoms, how severe were they on average? Moderate (1 to 3 hours per 24 hours) Score (range: 1 - 40) 22 (Severe) Review of Systems HENT: Negative for congestion. Respiratory: Positive for shortness of breath. Cardiovascular: Negative for chest pain. Neurological: Negative for headaches. Problem List: Patient Active Problem List Diagnosis Code GENERALIZED ANXIETY DIS F41.1 COMMON MIGRAINE WITHOUT MENTION OF INTRACTABLE MIGRAINE G43.009 TEMPOROMANDIBULAR JOINT DISORDERS, UNSPECIFIED M26.609 Mitral valve disorder I05.9 Gastroesophageal reflux disease without esophagitis K21.9 Other allergic rhinitis J30.89 Mitral valve prolapse I34.1 ADVANCE DIRECTIVE INFORMATION DYSLIPIDEMIA, GOAL LDL BELOW 100 E78.5 Anticoagulation management encounter Z51.81, Z79.01 halfway current use of anticoagulant therapy Z79.01 Factor V Leiden ([facility]) D68.51 HTN, goal below 140/90 I10 History of pulmonary embolism Z86.711 Hypothyroidism E03.9 Spider veins of both lower extremities I83.93 Statin intolerance Z78.9 BIANCA (obstructive sleep apnea) G47.33 Varicose veins of both legs with edema I83.893 De Quervain's tenosynovitis 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, 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 Primary osteoarthritis of first carpometacarpal joint of right hand M18.11 Spiritism or spiritual beliefs affecting medical care Z53.1 Hypertensive kidney disease with stage 3a chronic kidney disease I12.9, N18.31 Chronic kidney disease, stage 3a ([facility]) N18.31 Infiltrating ductal carcinoma of left breast ([facility]) C50.912 Laceration of left index finger without foreign body without damage to nail S61.211A Diastolic dysfunction I51.89 Obesity, morbid (more than 100 lbs over ideal weight or BMI > 40) ([facility]) E66.01 Current Medications: Outpatient Medications Marked as Taking for the 01/07/24 encounter (Office Visit) with Yara Beck CRNP Medication Sig Wegovy 0.25 MG/0.5ML Subcutaneous Solution Auto-injector (Semaglutide-Weight Management) Inject 0.25 mg under the skin once a week. Citalopram Hydrobromide 10 MG Oral Tablet (CeleXA) TAKE 1 TABLET BY MOUTH EVERY DAY Ezetimibe 10 MG Oral Tablet (Zetia) TAKE 1 TABLET BY MOUTH EVERY DAY Montelukast Sodium 10 MG Oral Tablet (Singulair) TAKE 1 TABLET BY MOUTH EVERY DAY Spironolactone 25 MG Oral Tablet (Aldactone) TAKE 1 TABLET BY MOUTH EVERY DAY Levothyroxine Sodium 50 MCG Oral Tablet (Levoxyl) TAKE 1 TABLET BY MOUTH EVERY DAY Torsemide 20 MG Oral Tablet (Demadex) TAKE 1 TABLET BY MOUTH EVERY DAY IN THE MORNING Atenolol 25 MG Oral Tablet (Tenormin) TAKE 1 TABLET BY MOUTH EVERY DAY Pantoprazole Sodium 40 MG Oral Tablet Delayed Release (Protonix) TAKE 1 TAB BY MOUTH DAILY 30 MINUTES BEFORE THE FIRST MEAL OF THE DAY Fluticasone Propionate 50 MCG/ACT Nasal Suspension (Flonase) SPRAY 2 SPRAYS INTO EACH NOSTRIL EVERYDAY Warfarin Sodium 2 MG Oral Tablet (Coumadin) TAKE 4 MG (2 TABLETS) ON WEDNESDAYS TAKE 3 MG (1.5 TABLETS) ALL OTHER DAYS OR DIRECTED BY ANTICOAGULATION CLINIC Pramipexole Dihydrochloride 0.125 MG Oral Tablet (Mirapex) TAKE 1 TABLET BY MOUTH 90 MINUTES PRIOR TO TYPICAL ONSET OF RESTLESS LEG SYMPTOMS high fiber LIQD Take by mouth. High Fiber packet once a day Klor-Con M10 10 MEQ Oral Tablet Extended Release (potassium chloride ER) TAKE 1 TABLET BY MOUTH EVERY DAY IN THE MORNING Biotin 1000 MCG Oral Tablet Chewable Take by mouth 5,000 mcg daily . Folic Acid 800 MCG Oral Tablet Take 1 Tablet by mouth in the morning. Vitamin D3 25 MCG (1000 UT) Oral Tablet (Vitamin D3) Take 1 Tablet by mouth in the morning. B-12 1000 MCG Oral Capsule Take 1 Capsule by mouth once a day on Wednesday, Wednesday, and Wednesday only. CPAP once. Polyethyl Glycol-Propyl Glycol 0.4-0.3 % Ophthalmic Solution Instill into eye as needed for Dry eyes. Loratadine 10 MG Oral Capsule Take 1 Capsule by mouth in the morning. latanoprost (XALATAN) 0.005 % ophthalmic solution Instill 1 Drop into both eyes at bedtime. NATURAL SUPPLEMENT Take by mouth daily. Whole daniela seeds, 1 scoop daily Calcium Glycerophosphate 340 (65-50) MG (CA-P) TABS Take by mouth 1 Tablet daily . Magnesium Oxide 400 MG Capsule Take 1 Capsule by mouth in the morning. B-6 100 MG PO TABS 200mg daily WOMENS MULTIVITAMIN PLUS PO TABS one daily Current Facility-Administered Medications for the 01/07/24 encounter (Office Visit) with Yara Beck CRNP Medication Hylan (Synvisc) inj 16 mg Physical Exam: BP 140/78 | Pulse 63 | Temp 36.5 C (97.7 F) (Tympanic) | Resp 16 | Ht 1.562 m (5' 1.5") | Wt 98.9 kg (218 lb) | SpO2 98% | BMI 40.52 kg/m | BSA 2.07 m Constitutional: Alert, oriented and in no acute distress Skin: No abnormal mask markings on face Cardio: Regular rate and rhythm, no ectopy or murmur Chest: Normal respiratory effort at rest Neuro: Fluent speech Psych: Appropriate mood and affect. Assessment & Plan: Encounter Diagnoses Name Primary? BIANCA on CPAP Yes Restless legs syndrome (RLS) She is compliant, therapeutic and benefiting with PAP treatment. Adjust to aPAP 11-16 cm H2O Continue use of CPAP to include all periods of sleep opportunity. Routine cleaning and change of supplies as needed was encouraged. Continue pramipexole 0.125 mg 60-90 minutes prior to typical onset of RLS nightly - tolerating wellwithout side effects or augmentation Continue to avoid engaging in activities that require full alertness when feeling sleepy or tired. K[facility] I spent a total of 20-29 minutes (exact time 28 mins) on the date of service in preparation, delivery, and documentation of the care provided to Linette Trujillo excluding any time spent in the performance of separately billed services. documented in this encounter Nursing Notes * Laurie Guerrero LPN - 01/07/2024 12:07 PM EDT Chief Complaint Patient presents with Follow Up Restless Leg Syndrome Sleep Apnea PLMD Cpap DME: [employer] Question 01/07/2024 11:58 AM EDT - Filed by Patient Do you have any of the following new or worsening symptoms? None of these Have you recently been in contact with someone who was sick? No / Unsure [place] Sleepiness Scale Question 01/07/2024 12:02 PM EDT - Filed by Patient What is the chance you will doze off in the following situation? Sitting and reading No chance of dozing Watching TV Slight chance of dozing Sitting inactive in a public place, such as a theater or meeting No chance of dozing As a passenger in a car for an hour without a break Slight chance of dozing Lying down to rest in the afternoon when circumstances permit Moderate chance of dozing When sitting and talking to someone No chance of dozing When sitting quietly after lunch without alcohol No chance of dozing In a car, while stopped for a few minutes in traffic Slight chance of dozing Score (range: 0 - 24) 5 Restless Leg Syndrome Rating Scale Question 01/07/2024 12:08 PM EDT - Filed by Patient Please complete the following questions. In the past week... Overall, how would you rate the RLS discomfort in your legs or arms? Severe Overall, how would you rate the need to move around because of your RLS symptoms? Severe How severe was your sleep disturbance due to your RLS symptoms? Severe How severe was your tiredness or sleepiness during the day due to your RLS symptoms? Moderate How severe was your RLS as a whole? Severe Overall, how severe was the impact of your RLS symptoms on your ability to carry out your daily affairs, for example, carrying out a satisfactory family, home, social, school, or work? Mild How severe was your mood disturbance due to your RLS symptoms, for example, angry, depressed, sad, anxious, or irritable? None In the past week, Overall, how much relief of your RLS arm or leg discomfort did you get from moving around? Moderaterelief How often did you get RLS symptoms? Often (4 to 5 days in 1 week) When you had RLS symptoms, how severe were they on average? Moderate (1 to 3 hours per 24 hours) Score (range: 1 - 40) 22 (Severe) documented in this encounter Plan of Treatment Upcoming Encounters Date Type Department Care Team (Late st Contact Info) Description 01/07/2024 3:00 PM EDT Office Visit Cardiology, [facility] [address] [place] [phone] Mary Verde CRNP [address] [place] [address] 01/10/2024 11:00 AM EDT Anticoagulation Pharmacy, [address] [place] [address] [place] [address] 01/13/2024 11:00 AM EDT Office Visit Orthopaedics [facility] [address] [facility] [place] [address] Herve Valera PA-C [address] [place] [address] 01/13/2024 2:05 PM EDT NeuroDiagnostic Study Neurophysiology [facility] [address] [facility] [place] [address] Donald Sevilla, DO [address] [place] [address] 01/19/2024 8:30 AM EDT Laboratory Laboratory [address] [place] [phone] [place] [address] 01/20/2024 11:00 AM EDT Office Visit [facility] [address] [facility] [place] [address] Herve Valera PA-C [address] [place] [address] 01/27/2024 10:30 AM EDT Office Visit [facility] [address] [facility] [place] [address] Herve Valera PA-C [address] [place] [address] 06/14/2024 1:40 PM EDT Office Visit Family Medicine [address] [place] [phone] Danika Chairez PA-C [address] [place] [address] [place] [address] 07/03/2024 11:40 AM EDT Office Visit Nutrition & Weight Management, [facility] [address] [place] [address] Tami Garrett PA-C [address] [place] [address] 08/07/2024 1:00 PM EST Laboratory Laboratory [address] [place] [phone] [address] [place] [address] 08/14/2024 2:00 PM EST Office Visit Hematology/Oncology [facility] [address] [place] [phone] Jeanette Arellano MD [address] [place] [address] 08/23/2024 2:55 PM EST Office Visit Urogynecology [facility] [address] [place] [address] Bay Ferreira MD [address] [place] [address] Nurse Zach Hernandez [address] [place] [address] 12/19/2024 1:40 PM EDT Office Visit Family Medicine [address] [place] [phone] Yoav Kong MD [address] [place] [address] [place] [address] 01/09/2025 10:30 AM EDT Office Visit Sleep Disorders Ctr [facility] [address] [place] [phone] Yara Beck CRNP [address] [place] [phone] Scheduled Procedures Name Priority Associated Diagnoses Date/Ti me COLONOSCOPY FLEXIBLE PROXIMAL DIAGNOSTIC Recall Colon cancer screening Health Maintenance Due Date Last Done Comments Depression Screening 03/28/2022 03/28/2021 DTaP,Tdap,and Td Vaccines (2 - Td or Tdap) 06/14/2022 06/14/2012, 09/27/2005 GFR 12/09/2023 06/10/2023, 09/21, 07/03/2022, Additional history exists Albumin/Creatinine Ratio 12/12/2023 023, 12/16/2021, 11/11/2021, Additional history exists CKD HGB USE SMARTSET 38249 06/10/202406/10, 06/10/2023, 10/16/2022, Additional history exists CKD PHOS USE SMARTSET 03387 06/10/202405/22, 06/23/2022, 07/21/2021, Additional history exists TSH [...] as of this encounter Visit Diagnoses Diagnosis BIANCA on CPAP- Primary Obstructive sleep apnea (adult) (pediatric) Restless legs syndrome (RLS) documented in this encounter Advance Directives Documents on File Type Date Recorded Patient [employer]enade[employer] Advance Directives and Karrie mata Will 05/20/2016 ADVANCE DIRECTIVE Power of Mill [employer] 05/20/2016 POWER OF A TTORNEY Latest Code Status on File Code Status Date Activated Date Inactivated Comments Full Code 08/14/2008 10:37 AM 08/14/2008 10:38 AM Care Teams Institutional Commodity Analyst Relationship Specialty Start Date End Date Yoav Kong MD [address] [place] [address] [place] [phone] PCP - General Family Medicine 04/09/14 documented as of this encounter
--- OUTSIDE RECORDS SUMMARY | 2024-06-16 04:19 | External Medical Summary ---
Author Name Unknown Address Unknown Organization K01:[facility] [place] [address] [facility] [place] [address] Laboratory Report Ordering Provider Test Date Status PACO ALFARO 01/07/2024 16:06:43 Final Observation Date Value Abnormality Reference (Units ) Status BUN 01/07/2024 16:06:43 31 Above high normal 6-20 (mg/dL) Final Creatinine 01/07/2024 16:06:43 1.3 Above high normal 0.5-1.0 (mg/dL) Final Glomerular filtration rate/1.73 sq M.predicted [Volume Rate/Area] in Serum, Plasma or Blood by Creatinine-based formula (CKD-EPI) 01/07/2024 16:06:43 43 Below low normal >=60 (mL/min) Final eGFR is calculated based on the CKD-EPI 2020 equation Sodium 01/07/2024 16:06:43 142 135-146 (m mol/L) Final Potassium 01/07/2024 16:06:43 4.0 3.5-5.1 (m mol/L) Final Cl 01/07/2024 16:06:43 101 98-107 (mm ol/L) Final CO2 01/07/2024 16:06:43 32 22-32 (mmo l/L) Final Anion gap 01/07/2024 16:06:43 9 7-15 (mmol /L) Final Glucose 01/07/2024 16:06:43 100 70-120 (mg /dL) Final Albumin 01/07/2024 16:06:43 4.4 3.8-5.0 (g /dL) Final AST (Aspartate aminotransferase) 01/07/2024 16:06:43 20 10-35 (U/L) Final Alk Phos 01/07/2024 16:06:43 69 35-130 (U/ L) Final Bilirubin, Total 01/07/2024 16:06:43 0.4 <=1 .2 (mg/dL) Final Calcium 01/07/2024 16:06:43 9.4 8.4-10.2 ( mg/dL) Final Protein 01/07/2024 16:06:43 6.5 6.0-8.3 (g /dL) Final ALT (Alanine aminotransferase) 01/07/2024 16:06:43 27 10-35 (U/L) Final Performing Location [facility] [place] [address] [facility] [address]
--- OUTSIDE RECORDS SUMMARY | 2024-06-16 04:19 | External Medical Summary ---
Author Name Unknown Address Unknown Organization : Laboratory Report Ordering Provider Test Date Status PIERO RIVERA 01/10/2024 11:06:36 Final Therapeutic ranges for non-o perative patients:
Prophylaxsis/treatment of DVT: (Range:2.0-3.0)
Treatment of pulmonary embolism:(Range:2.0-3.0)
Prevention of systemic embolism from:
-tissue heart valves
-acute myocardial infarction
-valvular heart disease
-atrial fibrillation
(Range: 2.0-3.0)
Mechanical prosthetic valves: (Range: 2.5-3.5) Observation Date Value Abnormality Reference (Units ) Status INR in Capillary blood by Coagulation assay 01/10/2024 11:06:36 1.8 (INR) Final Performing Location
--- OUTSIDE RECORDS SUMMARY | 2024-06-16 04:20 | External Medical Summary | Summary of Care ---
Author Name Unknown Organization [facility] Address [address] [place] [address] Phone [phone] Care Team Providers Care [employer] Name Role Phone Yoav Kong MD Primary Care Provide r Reason for Referral * Evaluate & Treat - Unlimited Visits (Within 10 days (routine)) - Pending Review Specialty Diagnoses / Procedures Referred By Parrish moreira Referred To Contact Physical Therapy / Physical Medicine And Rehab Diagnoses Neuropathic pain of right foot Spasm of right piriformis muscle Fabian Bhagat DO [address] [place] [phone] Referral ID Status Reason Start Date Expiration Date Visits Requested Visits Authorized [id number] Pending Review Specialty Services Required 01/06/[phone] Question Answer Referral Priority Within 10 days (routine) Where should this appointment be scheduled? [facility] Comments Evaluate/treat. Consider piriformis normalization, TENS unit trial, nerve glides, therapeutic massage, heat/cold therapy or as otherwise indicated. Reason for Visit * Reason Comments Back Pain Encounter Details Date Type Department Care Team (Late st Contact Info) Description 01/06/2024 3:00 PM EDT Office Visit Inter[facility], [facility] [address] [place] [address] Fabian Bhagat, DO [address] [place] [phone] Neuropathic pain of right foot*; Spasm of right piriformis muscle Allergies Active Allergy Reactions Criticality Noted Date [...] as of this encounter (statuses as of 01/06/2024) Medications Medication Sig Dispensed Refills Start Date [...] of pulmonary embolism,Factor V Leiden (HCC),Anticoagulation management encounter,assisted current use of anticoagulant therapy,Venous thrombosis TAKE [...] Active Additional Information Patient not taking.Reported on 01/05/2024 Hospital, Clinic, or Other Facility Administered Medication Ordered Dose Route Frequency Start Date End Date Status Hylan (Synvisc) inj 16 mgIndications:Primary osteoarthritis of right knee 16 mg IX QWEEK 07/08/2023 Active documented as of this encounter (statuses as of 01/06/2024) Active Problems Problem Noted Date Diagnosed Date [...] pulmonary embolism 12/20/2011 Anticoagulation management encounter 12/14/2011 assisted current use of anticoagulant therapy 0 12/14/2011 DYSLIPIDEMIA, GOAL LDL BELOW 100 08/29/2009 Overview: Per Lipid Taxonomy. COMMON MIGRAINE WITHOUT MENTION OF INTRACTABLE M IGRAINE 01/01/2003 GENERALIZED ANXIETY DIS 12/19/2001 TEMPOROMANDIBULAR JOINT DISORDERS, UNSPECIFIED Mitral valve disorder Gastroesophageal reflux disease without esophagi tis Other allergic rhinitis Overview: ICD-10 update of inactive term Mitral valve prolapse documented as of this encounter (statuses as of 01/06/2024) Resolved Problems Problem Noted Date Diagnosed Date [...] as of this encounter (statuses as of 01/06/2024) Immunizations Name Administration Dates Next Due COVID-19 [...] as of this encounter Progress Notes * Fabian Bhagat, DO - 01/06/2024 3:35 PM EDT Interventional Pain Follow-up Appointment Subjective: Chief Complaint: Chief Complaint Patient presents with Back Pain History of Present Illness: Linette Trujillo is [...] report if needed. Pertinent Labs/Test Results: INR ( ) Date Value 12/14/2011 2.39 (H) Fingerstick INR (INR) Date Value 12/20/2023 2.0 09/30/2020 2.3 No results found for: "CREATININE" Hemoglobin A1C (%) Date Value 06/10/2023 5.5 07/22/2018 5.5 No results found for: "AMPHETAMINE", "BARBITURATES", "BENZODIAZEPINES", "BUPRENORPHINE", "METHADONE", "OPIATES", "OXYCODONE", "PHENCYCLIDINE", "CANNABINOIDS", "TOX SCREEN", "URINE", "TOX SCREEN-SERUM", "TOX SCREEN, URINE" Imaging: FLUORO INTERVENTIONAL PAIN PROCEDURE NONBILLABLE This procedure will not be read by a Radiologist. Please see operative note. Objective Physical Exam: Vital Signs: There were [...] muscle - PHYSICAL THERAPY REFERRAL OP Plan: Physical therapy order issued. Evaluate/treat. Consider piriformis normalization, TENS unit trial, nerve glides, therapeutic massage, heat/cold therapy or as otherwise indicated. EMG requested Consider radiculopathy ?S1 vs peripheral nerve entrapment. Patient had a 10 year old EMG but this is not going to be useful. Consider MRI +/- LESI if radiculopathy found to be culprit. If MRI/EMG negative may consider piriformis muscle injection vs peripheral nerve block with steroidif EMG redemonstrates peripheral mononeuropathy. PNS is an option in this case. Medical Decision Making I spent 30 minutes reviewing the patient's prior visit office notes, procedure notes, images, conducting the history and physical examination, formulating a care plan, considering interventional options, drafting orders and medication prescriptions as well as recording the medical documentation. Fabian Bhagat DO [facility] [address] [facility] [place] [address] documented in this encounter Nursing Notes * Liudmila Sanchez LPN - 01/06/2024 3:12 PM EDT Patient here for injection f/u-states pain is improved on R side but still has left low back pain S/p b/l SI inj's documented in this encounter Plan of Treatment Upcoming Encounters Date Type Department Care Team (Late st Contact Info) Description 01/07/2024 12:00 PM EDT Office Visit [facility] [address] [facility] [place] [phone] Yara Beck CRNP [address] [facility] [place] [phone] 01/10/2024 11:00 AM EDT Anticoagulation Pharmacy, [address] [place] [address] [place] [address] 01/13/2024 11:00 AM EDT Office Visit [facility] [address] [facility] [place] [address] Herve Valera PA-C [address] [place] [address] 01/19/2024 8:30 AM EDT Laboratory Laboratory [address] [place] [phone] [place], Lab [address] [place] [address] 01/20/2024 11:00 AM EDT [facility] [address] [facility] [place] [address] Herve Valera PA-C [address] [place] [address] 01/27/2024 10:30 AM EDT Office Visit [facility] [address] [facility] [place] [address] Herve Valera PA-C [address] [place] [address] 01/27/2024 2:30 PM EDT Office Visit Cardiology [address] [place] [address] Daylin Diaz PA-C [address] [facility] [place] [phone] 06/14/2024 1:40 PM EDT Office Visit Family Medicine [address] [place] [phone] Danika Chairez PA-C [address] [place] [address] [place] [address] 07/03/2024 11:40 AM EDT Office Visit Nutrition & Weight Management, [facility] [address] [place] [address] Tami Garrett PA-C [address] [place] [phone] 08/07/2024 1:00 PM EST Laboratory Laboratory [address] [place] [phone] [address] [place] [address] 08/14/2024 2:00 PM EST Office Visit Hematology/Oncology [facility] [address] [place] [place] [phone] Jeanette Arellano MD [address] [facility] [place] [address] 08/23/2024 2:55 PM EST Office Visit Urogynecology [facility] [address] [place] [address] Bay Ferreira MD [address] [place] [address] Nurse Zach Hernandezs [address] [place] [address] 12/19/2024 1:40 PM EDT Office Visit Family Medicine [address] [place] [phone] Yoav Kong MD [address] [place] [address] [place] [address] Scheduled Procedures Name Priority Associated Diagnoses Date/Ti me COLONOSCOPY FLEXIBLE PROXIMAL DIAGNOSTIC Recall Colon cancer screening Scheduled Referrals Name Type Priority Associated Diagnoses Orde r Schedule PHYSICAL THERAPY REFERRAL OP Referral Within 10 days (routine) Neuropathic pain of right foot Spasm of right piriformis muscle Ordered: 01/06/2024 Health Maintenance Due Date Last Done Comments Depression Screening 03/28/2022 03/28/2021 DTaP,Tdap,and Td Vaccines (2 - Td or Tdap) 06/14/2022 06/14/2012, 09/27/2005 GFR 12/09/2023 06/10/2023, 09/21, 07/03/2022, Additional history exists Albumin/Creatinine Ratio 12/12/2023 023, 12/16/2021, 11/11/2021, Additional history exists CKD HGB USE SMARTSET 86096 06/10/202406/10, 06/10/2023, 10/16/2022, Additional history exists CKD PHOS USE SMARTSET 81353 06/10/202405/22, 06/23/2022, 07/21/2021, Additional history exists TSH [...] as of this encounter Visit Diagnoses Diagnosis Neuropathic pain of right foot- Primary Spasm of right piriformis muscle documented in this encounter Advance Directives Documents on File Type Date Recorded 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
--- OUTSIDE RECORDS SUMMARY | 2024-06-16 04:20 | External Medical Summary | Summary of Care ---
Author Name Unknown Organization [facility] Address [address] [place] [address] Phone [phone] Care Team Providers Care Commissioner Of Officials Name Role Phone Yoav Kong MD Primary Care Provide r Reason for Visit * Reason Comments Weight Management The pt stated she wo uld like to discuss starting a GLP-1 Encounter Details Date Type Department Care Team (Late st Contact Info) Description 12/24/2023 10:40 AM EDT Office Visit Nutrition & Weight Management, [facility] [address] [place] [address] Tami Garrett PA-C [address] [place] [phone] Morbid obesity due to excess calories (HCC)* Allergies Active Allergy Reactions Criticality Noted Date Comments Moxifloxacin Hydrochloride 0 "patient states her pharmacist told her not to take this med" Ciprofloxacin Other (Please comment) 05/28/2015 Caused tendon tears Hydromorphone Hcl Nausea/vomiting 09/17/2015 Esomeprazole 06/26/2002 migraine headache nexium Ppa-Gg Cr Other (Please comment) Medium 03/10/2010 Raises blood pressure and experiences heart palpatations. Metronidazole Hives 08/15/2012 Fluconazole Hives Low 10/16/2010 Hydrocodone Itching 05/28/2015 Moxifloxacin Unknown 05/28/2015 Nickel Rash 09/17/2015 Nitrofurantoin Monohyd Macro Hives Medium 11/29/2013 Semaglutide(0.25 Or 0.5mg-Dos) 07/24/2022 Nausea, diarrhea, rash Phenylpropanolamine Hcl Exgest LA--heart palpitations/side effect Scopolamine Other (Please comment) 06/06/2001 "it dehydrates me" Sulfa Antibiotics Hives,Nausea/vomi ting 09/24/2000 Other reaction(s): sick to stomach Terconazole 06/10/2010 hives Terconazole Unknown 05/28/2015 documented as of this encounter (statuses as of 12/24/2023) Medications Medication Sig Dispensed Refills Start Date [...] EVERY DAY 90 Tablet 2 4 Active Gemtesa 75 MG Oral Tablet (Vibegron) Take 1 Tablet by mouth in the morning. 90 Tablet 3 4 11/09/19 25 Active Ezetimibe 10 MG Oral Tablet (Zetia) [...] as of this encounter (statuses as of 12/24/2023) Active Problems Problem Noted Date Diagnosed Date [...] as of this encounter (statuses as of 12/24/2023) Resolved Problems Problem Noted Date Diagnosed Date [...] as of this encounter (statuses as of 12/24/2023) Immunizations Name Administration Dates Next Due COVID-19 [...] Sign Reading Time Taken Comments Blood Pressure 162/82 12/24/2023 10:36 AM EDT Pulse 60 12/24/2023 10:36 AM EDT Temperature 36.8 C (98.2 F) 12/24/2023 1 0:36 AM EDT Respiratory Rate - - Oxygen Saturation 99% 12/24/2023 10: 36 AM EDT Inhaled Oxygen Concentration - - Weight 97.9 kg (215 lb 14.4 oz) 024 10:36 AM EDT Height - - Body Mass Index 40.14 12/10/2023 2:14 PM EDT documented in this encounter Patient Instructions * Patient Instructions* Tami Garrett PA-C - 12/24/2023 11:01 AM EDT -recommend adding a GLP-1 agonist to offset weight gain from insulin, improve blood sugar,and decrease appetite - start Wegovy: inject 0.25mg subcutaneous once weekly x 4 weeks, (dose will increase minimum every4 weeks and a new prescription is needed each dose until maintenance dose of 2.4mg per week) Step 1: 0.25mg weekly Step 2: 0.5mg weekly Step 3: 1.0mg weekly Step 4: 1.7mg weekly Step 5: 2.4mg weekly -the hematology nurse educator website has tutorial videos on how to use the pen. If you are unsure or uncomfortable using the pen for the first time, make a nurse visit in our office for teaching. - possible side effects of wegovy which include but are not limited to: GI upset, nausea, vomiting,diarrhea, gallbladder disease, & pancreatitis -patient denies personal history of pancreatitis and personal or family history of thryoid cancer or MEN2 documented in this encounter Progress Notes * Tami Garrett PA-C - 12/24/2023 10:50 AM EDT Comprehensive Weight Management Clinic Note Nursing Notes: Fidel Bocanegra LPN 12/24/23 1040 Signed Chief Complaint Patient presents with Weight Management The pt stated she would like to discuss starting a GLP-1 Linette Trujillo presents in follow up to the comprehensive weight management clinic. The patient is a 78 year old female Wt Readings from Last 6 Encounters: 12/24/23 97.9 kg (215 lb 14.4 oz) 12/13/23 98.2 kg (216 lb 6.4 oz) 12/10/23 96.6 kg (213 lb) 12/03/23 96.7 kg (213 lb 3.2 oz) 08/13/23 95.8 kg (211 lb 4.8 oz) 07/22/23 94.8 kg (209 lb) Patient is receiving ongoing education regarding dietary and physical modifications for weight loss. - Initial clinic visit 10/02/22. Weight at that time was 202 lbs - Today's weight: 215 lbs - Total weight loss of +13 since initial weight in clinic - Patient's last follow up with GI/Nutrition clinic was on 05/27/23. - The patient's weight has +11 lbs since the last visit 12/24/23 -here to discuss AOM -reports she called insurance and they will cover Wegovy -had been on 1 dose of ozempic in the past and had some nausea, allergy information says rash - pt denies ever having rash -recently had shot in back and feeling much better, walking more -has 3.5yo grandson every other week - keeps her active 12/03/23 -Routine Dietary Follow Up Today, not interested in seeing RD today -11/15 [facility] [place], interested in AOM/Wegovy -Does not want a "magic pill" needs support with wt loss 05/27/23 -not on AOM -stopped topamax d/t blurry vision -just started tracking food on [employer] -more fatigue and hair loss since COVID in February -due for another back injection 05/20/23 -Initial RD visit -PCP and cardiology advised wt loss -[place] the beach -Started doing some walking this summer hx of tendon injury -breathing worsened after cancer treatments -Hx of breast cancer and treatments (Dec 2 yrs ago) -Would like info on saxenda -"Starving all the time" 02/05/23 -Totino - Home scale and weight at Dr office yesterday was 192 lbs - Having a lot of pain from her varicose veins - Getting injections in her back later this month - still struggling 12/03/22 -unable to tolerate wellbutrin Today's Visit 10/02/2022 - Her brother in August so has had increased stress - increased cravings with increase in stress - currently taking celexa to help with mood -Medication: Had severe side effects from Ozempic, will stop Ozempic and remain off medications forthe time being, will focus on diet and exercise and re- evaluate medication options in the future. Patient Active Problem List Diagnosis Code GENERALIZED ANXIETY DIS F41.1 COMMON MIGRAINE WITHOUT MENTION OF INTRACTABLE MIGRAINE G43.009 TEMPOROMANDIBULAR JOINT DISORDERS, UNSPECIFIED M26.609 Mitral valve disorder I05.9 Gastroesophageal reflux disease without esophagitis K21.9 Other allergic rhinitis J30.89 Mitral valve prolapse I34.1 ADVANCE DIRECTIVE INFORMATION DYSLIPIDEMIA, GOAL LDL BELOW 100 E78.5 Anticoagulation management encounter Z51.81, Z79.01 [facility] current use of anticoagulant therapy Z79.01 Factor V Leiden ([facility]) D68.51 HTN, goal below 140/90 I10 History of pulmonary embolism Z86.711 Hypothyroidism E03.9 Spider veins of both lower extremities I83.93 Statin intolerance Z78.9 BIANCA (obstructive sleep apnea) G47.33 Varicose veins of both legs with edema I83.893 De Quervain's tenosynovitis 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, 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 Primary osteoarthritis of first carpometacarpal joint of right hand M18.11 Taoism or spiritual beliefs affecting medical care Z53.1 Hypertensive kidney disease with stage 3a chronic kidney disease I12.9, N18.31 Chronic kidney disease, stage 3a ([facility]) N18.31 Infiltrating ductal carcinoma of left breast ([facility]) C50.912 Laceration of left index finger without foreign body without damage to nail S61.211A Diastolic dysfunction I51.89 Obesity, morbid (more than 100 lbs over ideal weight or BMI > 40) ([facility]) E66.01 Review of Systems: Review of Systems Musculoskeletal: Positive for arthralgias and back pain. All other systems reviewed and are negative. Current Medications: Current Outpatient Medications Medication Sig Dispense Refill [...] 1 Tablet by mouth in the morning. Klor-Con M10 10 MEQ Oral Tablet Extended Release (potassium chloride ER) TAKE 1 TABLET BY MOUTH EVERY DAY IN THE MORNING 90 Tablet 3 high fiber LIQD Take by mouth. High Fiber packet once a day Pramipexole Dihydrochloride 0.125 MG Oral Tablet (Mirapex) TAKE 1 TABLET BY MOUTH 90 MINUTES PRIOR TO TYPICAL ONSET OF RESTLESS LEG SYMPTOMS 90 Tablet 3 Warfarin Sodium 2 MG Oral Tablet (Coumadin) [...] BY MOUTH EVERY DAY 90 Tablet 3 Torsemide 20 MG Oral Tablet (Demadex) TAKE 1 TABLET BY MOUTH EVERY DAY IN THE MORNING 90 Tablet 1 Levothyroxine Sodium 50 MCG Oral Tablet (Levoxyl) TAKE 1 TABLET BY MOUTH EVERY DAY 90 Tablet 2 Gemtesa 75 MG Oral Tablet (Vibegron) Take 1 Tablet by mouth in the morning. 90 Tablet 3 Ezetimibe 10 MG Oral Tablet (Zetia) TAKE [...] BY MOUTH EVERY DAY 90 Tablet 2 Current Facility-Administered Medications Medication Dose Route Frequency Provider Last Rate Last Admin Hylan (Synvisc) inj 16 mg 16 mg Intra-Articular Q Week Herve Valera PA-C 16 mg at 07/08/23 1239 Water intake: yes Prescribed diet: 1400 per per day Current diet: B: banana with 1 tsp BP S: skips L: 1/2 sandwich with ham S: apple D: 3 oz meat, 1c green beans, potato S: 1/2c ice cream Drinks: water Meals out: 1x per week Food logs: Yes and reviewed with patient today Type of exercise: ADL Weight loss Pharmacotherapy: no BP 162/82 | Pulse 60 | Temp 36.8 C (98.2 F) | Wt 97.9 kg (215 lb 14.4 oz) | SpO2 99% | BMI 40.14 kg/m | BSA 2.06 m PHYSICAL EXAMINATION: General: Patient awake alert and oriented. Patient is well appearing and in no acute distress. Skin: No rashes. HEENT: Head is atraumatic, normocephalic. EOMs intact Abdomen: Obese Neuro: No focal deficits Psych: Appropriate mood and affect. Assessment and Plan: Abnormal weight gain / Body mass index is 40.14 kg/m. / Class II obesity: - Would like to proceed with possible medication use - Barriers are consistency. - Motivators are feeling better overall, avoiding/reducing co-morbid conditions. - The patient was encouraged to to avoid all fruit juices and regular sodas, consume at least 64 ounces of water per day, keep food logs and get weighed on a weekly basis. They were encouraged to increase physical activity as prescribed. - Handouts regarding nutrition and physical activity were provided, as appropriate. 1. Keep a food log. If you bite it, write it! Apps like [employer] or [employer] Calorie goal: 1400 2. Drink 48-64 ounces of non-caloric beverages per day. No fruit juices or regular soda Try crystal light, propel, zero calorie flavored water, plain water 3. Goal of 30 minutes of exercise 5 days per week (150 minutes per week--can be divided up however you would like) Aim for aerobic activity and muscle strengthening activities 4. Increase fruit and vegetable servings to 5-6 per day. 1/2 of your plate should be fruits and vegetables 5. Eat 100-200 calories within 1-2 hours of awakening, and every 4 - 6 hours while awake. (3 meals with snacks in between) Choose 100 calorie or less snacks, protein snacks 7. Weight yourself weekly and follow trend over time (day to day weight fluctuations can be discouraging) 8. Decrease starches like bread, pasta, cereal, potatoes and corn. Aim for of your plate Try substitutions like zoodles, lentil pasta, cauliflower mashed potatoes, whole grain foods, quinoa Limit junk/processed foods Chips, pretzels, cookies, cakes, sweets White bread/rolls/wraps/bagels, white rice 9. Increase protein to feel full longer (1/4 of your plate) Linette was seen today for weight management. Diagnoses and all orders for this visit: Morbid obesity due to excess calories (HCC) (Primary) - Wegovy 0.25 MG/0.5ML Subcutaneous Solution Auto-injector (Semaglutide-Weight Management); Inject 0.25 mg under the skin once a week. -add Wegovy - will try for coverage (state insurance) - ok to titrate to 0.5mg and stay there untilseen again -will continue to track with [employer] and follow with RD -didn't tolerate wellbutrin, naltrexone, found topamax unhelpful -avoid phentermine Abnormal weight gain The patient agreed to try the plan as discussed and return in 3 months. They were encouraged to call or send a patient portal message in the meantime with any questions or concerns prior to their next clinic visit. I spent a total of 20 minutes on the date of service in preparation, delivery, and documentation ofthe care provided to Linette Trujillo excluding any time spent in the performance of separatelybilled services. This included but was no limited to providing counseling about the benefits of weight loss, about their nutritional status, detailed explanations about calorie count, types of nutrients to choose, and composition of the meals. Motivational interview provided in order to prepare the patient to achieve future goals. Tami Garrett PA-C documented in this encounter Nursing Notes * Fidel Bocanegra LPN - 12/24/2023 10:36 AM EDT Chief Complaint Patient presents with Weight Management The pt stated she would like to discuss starting a GLP-1 documented in this encounter Plan of Treatment Upcoming Encounters Date Type Department Care Team (Late st Contact Info) Description 01/07/2024 12:00 PM EDT Office Visit Sleep Disorders Ctr [facility] [address] [facility] [place] [phone] Yara Beck CRNP 132 [facility] [place] [address] 01/10/2024 11:00 AM EDT Anticoagulation Pharmacy, [address] [place] [address] [place] [address] 01/13/2024 11:00 AM EDT Office Visit Orthopaedics [facility] [address] [facility] [place] [address] Herve Valera PA-C [address] [place] [phone] 01/20/2024 11:00 AM EDT Office Visit [facility] [address] [facility] [place] [address] Herve Valera PA-C [address] [place] [address] 01/27/2024 10:30 AM EDT Office Visit Orthopaedics [facility] [place] [address] Herve Valera PA-C [address] [place] [address] 01/27/2024 2:30 PM EDT Office Visit Cardiology [address] [place] [address] Daylin Diaz PA-C [address] [place] [address] 06/14/2024 1:40 PM EDT Office Visit Family Medicine [address] [place] [phone] Danika Chairez PA-C [address] [place] [address] [place] [address] 07/03/2024 11:40 AM EDT Office Visit Nutrition & Weight Management, [facility] [address] [place] [address] Tami Garrett PA-C [address] [place] [address] 08/07/2024 1:00 PM EST Laboratory Laboratory [address] [place] [phone] [place], [address] [place] [address] 08/14/2024 2:00 PM EST Office Visit Hematology/Oncology [facility] [address] [place] [phone] Jeanette Arellano MD [address] [place] [address] 08/23/2024 2:55 PM EST Office Visit Urogynecology Nico Hernandez [address] [place] [address] Bay Ferreira MD [address] [place] [address] Nurse Zach Hernandez [address] [place] [address] 12/19/2024 1:40 PM EDT Office Visit [facility] [address] [place] [phone] Yoav Kong MD [address] [place] [address] [place] [address] Scheduled Procedures Name Priority Associated Diagnoses Date/Ti me COLONOSCOPY FLEXIBLE PROXIMAL DIAGNOSTIC Recall Colon cancer screening Health Maintenance Due Date Last Done Comments Depression Screening 03/28/2022 03/28/2021 DTaP,Tdap,and Td Vaccines (2 - Td or Tdap) 06/14/2022 06/14/2012, 09/27/2005 GFR 12/09/2023 06/10/2023, 09/21, 07/03/2022, Additional history exists Albumin/Creatinine Ratio 12/12/2023 023, 12/16/2021, 11/11/2021, Additional history exists CKD HGB USE SMARTSET 93255 06/10/202406/10, 06/10/2023, 10/16/2022, Additional history exists CKD PHOS USE SMARTSET 34913 06/10/202405/22, 06/23/2022, 07/21/2021, Additional history exists TSH [...] as of this encounter Visit Diagnoses Diagnosis Morbid obesity due to excess calories (HCC)- Primary documented in this encounter Advance Directives Documents on File Type Date Recorded Patient Remote Ruby On Rails Developer Expl anation Advance Directives and Livin g Will 05/20/2016 ADVANCE DIRECTIVE Power of Marketing Researcher 05/20/2016 POWER OF A TTORNEY Latest Code Status on File Code Status Date Activated Date Inactivated Comments Full Code 08/14/2008 10:37 AM 08/14/2008 10:38 AM Care Teams Commissioner Of Officials Relationship Specialty Start Date End Date Yoav Kong MD [address] [place] [address] [place] [address] PCP - General Family Medicine 04/09/14 documented as of this encounter
--- OUTSIDE RECORDS SUMMARY | 2024-06-16 04:20 | External Medical Summary | Summary of Care ---
Author Name Unknown Organization [facility] Address [address] [place] [address] Phone [phone] Care Team Providers Care Food Service Substitute Name Role Phone Yoav Kong MD Primary Care Provide r Reason for Visit * Reason Onset Date Comments Precert Denied 12/29/2023 wegovy Encounter Details Date Type Department Care Team (Late st Contact Info) Description 12/29/2023 Telephone Nutrition & Weight Management, [facility] [address] [place] [address] Tami Garrett PA-C [address] [place] [address] Precert Denied ( wegovy) Allergies Active Allergy Reactions Criticality Noted Date [...] as of this encounter (statuses as of 01/03/2024) Medications Medication Sig Dispensed Refills Start Date [...] of pulmonary embolism,Factor V Leiden (HCC),Anticoagulation management encounter,[facility] current use of anticoagulant therapy,Venous [...] as of this encounter (statuses as of 01/03/2024) Active Problems Problem Noted Date Diagnosed Date [...] kidney disease 07/29/2020 Overview: Per CKD protocol Religion or spiritual beliefs affecting medical care 05/25/2019 [...] as of this encounter (statuses as of 01/03/2024) Resolved Problems Problem Noted Date Diagnosed Date [...] as of this encounter (statuses as of 01/03/2024) Immunizations Name Administration Dates Next Due COVID-19 [...] encounter Miscellaneous Notes * Telephone Encounter - Fidel Bocanegra LPN - 12/31/2023 11:00 AM EDT Rerunning prior auth through another Dx. See other ENC * Telephone Encounter - Fidel Bocanegra LPN - 12/31/2023 10:59 AM EDT Images from the original note were not included. Precert 12/30/2023 3:47 PM Gloria Smith OSA - - Note: New or re-auth: New authorization Approved/Denied: Denied Drug Name and Formulation: wegovy 0.25mg/0.5ml pen How Prescribed(directions/sig): inject 0.25mg weekly Day Supply: 2ml per 28 days Did you receive insurance information from outside the chart? No, received insurance information within the chart Valid auth start date: N/A Valid auth end date: N/A Rx Insurance Info: Vishnu SONG Reference #: n/a Rx Benefits Verified through/on date: [facility] 12/29 Referral (TE) received from: Prescribing Clinic Gloria Smith Medication Caddy/Caddie Supervisor II [facility] 12/30/23,3:46 PM . Type Date User Summary Attachment Precert 12/30/2023 2:08 PM Gloria Smith OSA - - Note: [facility] Authorization Submission Submission Information: Medication: Wegovy Portal used: [facility] Insurance: Vishnu Authorization #/[place]: [id number] * Telephone Encounter - Linda Bajwa RN - 12/29/2023 9:05 AM EDT Please Start prior authorization for Wegovy 0.25 MG/0.5ML Diagnosis Class 3 severe obesity due to excess calories in adult, unspecified BMI, unspecified whether serious comorbidity present (HCC) [E66.01] and Abnormal weight gain [R63.5] Patient qualifies for Weight loss medication due to BMI >30 or BMI >27 with obesity related comorbidity BMI Readings from Last 2 Encounters: 12/24/23 40.14 kg/m 12/13/23 40.23 kg/m Wt Readings from Last 2 Encounters: 12/24/23 97.9 kg (215 lb 14.4 oz) 12/13/23 98.2 kg (216 lb 6.4 oz) Patient had tried or has contraindications to Wellbutrin, Topamax, Saxenda, and Ozempic documented in this encounter Plan of Treatment Upcoming Encounters Date Type Department Care Team (Late st Contact Info) Description 01/06/2024 3:00 PM EDT Office Visit Interventional Pain Center, [facility] [address] [place] [address] Fabian Bhagat DO [address] [place] [phone] 01/07/2024 12:00 PM EDT Office Visit Sleep Disorders Ctr [facility] [address] [place] [phone] Yara Beck CRNP [address] [facility] [place] [address] 01/10/2024 11:00 AM EDT Anticoagulation Pharmacy, [address] [place] [address] [place] [address] 01/13/2024 11:00 AM EDT Office Visit Orthopaedics [facility] [address] [place] [address] Herve Valera PA-C [address] [place] [address] 01/19/2024 8:30 AM EDT Laboratory Laboratory [address] [place] [phone] [facility] [address] [place] [address] 01/20/2024 11:00 AM EDT Office Visit Orthopaedics [facility] 132 [facility] [place] [address] Herve Valera PA-C [address] [place] [address] 01/27/2024 10:30 AM EDT Office Visit Orthopaedics [facility] [address] [facility] [place] [address] Herve Valera PA-C [address] [place] [address] 01/27/2024 2:30 PM EDT Office Visit Cardiology [address] [place] [address] Daylin Diaz PA-C [address] [place] [address] 06/14/2024 1:40 PM EDT Office Visit Family Medicine [address] [place] [phone] Danika Chairez PA-C [address] [place] [address] [place] [address] 07/03/2024 11:40 AM EDT Office Visit Nutrition & Weight Management, [facility] [address] [facility] [place] [address] Tami Garrett PA-C [address] [place] [phone] 08/07/2024 1:00 PM EST Laboratory Laboratory [address] [place] [phone] [place] [address] 08/14/2024 2:00 PM EST Office Visit Hematology/Oncology [facility] [address] [facility] [place] [phone] Jeanette Arellano MD [address] [place] [address] 08/23/2024 2:55 PM EST Office Visit Urogynecology Nico Hernandez [address] [place] [address] Bay Ferreira MD [address] [place] [address] Nurse Zach Hernandez [address] [place] [address] 12/19/2024 1:40 PM EDT Office Visit Family Medicine [address] [place] [phone] Yoav Kong MD [address] [place] [address] [place] [address] Scheduled Procedures Name Priority Associated Diagnoses Date/Ti me COLONOSCOPY FLEXIBLE PROXIMAL DIAGNOSTIC Recall Colon cancer screening Health Maintenance Due Date Last Done Comments Depression Screening 03/28/2022 03/28/2021 DTaP,Tdap,and Td Vaccines (2 - Td or Tdap) 06/14/2022 06/14/2012, 09/27/2005 GFR 12/09/2023 06/10/2023, 09/21, 07/03/2022, Additional history exists Albumin/Creatinine Ratio 12/12/2023 023, 12/16/2021, 11/11/2021, Additional history exists CKD HGB USE SMARTSET 00488 06/10/202406/10, 06/10/2023, 10/16/2022, Additional history exists CKD PHOS USE SMARTSET 11174 06/10/202405/22, 06/23/2022, 07/21/2021, Additional history exists TSH [...] Documents on File Type Date Recorded Patient Artificial Glass Eye Maker Expl anation Advance Directives and Livin g Will 05/20/2016 ADVANCE DIRECTIVE Power of Fire Lookout 05/20/2016 POWER OF A TTORNEY Latest Code Status on File Code Status Date Activated Date Inactivated Comments Full Code 08/14/2008 10:37 AM 08/14/2008 10:38 AM Care Teams Food Service Substitute Relationship Specialty Start Date End Date Yoav Kong MD [address] [place] [address] [place] [address] PCP - General Family Medicine 04/09/14 documented as of this encounter
--- OUTSIDE RECORDS SUMMARY | 2024-06-16 04:20 | External Medical Summary | Summary of Care ---
Author Name Unknown Organization [facility] Address [address] [place] [address] Phone [phone] Care Team Providers Care Burner Tender Name Role Phone Yoav Kong MD Primary Care Provide r Reason for Visit * Reason Comments Acute Encounter Details Date Type Department Care Team (Late st Contact Info) Description 01/05/2024 12:30 PM EDT Office Visit Family Medicine [address] [phone] [place] [phone] Shortness of breath*; Dizziness; Rash and nonspecific skin eruption; Adverse effect of drug, initial encounter Allergies Active Allergy Reactions Criticality Noted Date [...] as of this encounter (statuses as of 01/05/2024) Medications Medication Sig Dispensed Refills Start Date [...] pulmonary embolism,Factor V Leiden (HCC),Anticoagulati on management encounter,oysterman current use of anticoagulant therapy,Venous thrombosis TAKE [...] DAY 90 Tablet 3 07/22/20 23 Active Torsemide 20 MG Oral Tablet (Demadex)Indication s:Diastolic dysfunction TAKE 1 TABLET BY MOUTH EVERY DAY IN THE MORNING 90 Tablet 1 08/16/20 23 Active Levothyroxine Sodium 50 MCG Oral [...] Additional Information Patient not taking.Reported on 01/05/2024 Gemtesa 75 MG Oral Tablet (Vibegron) Take 1 Tablet by mouth in the morning. 90 Tablet 3 11/15/19 24 024 Discontinued Hospital, Clinic, or Other Facility Administered Medication Ordered Dose Route Frequency Start Date End Date Status Hylan (Synvisc) inj 16 mgIndications:Primary osteoarthritis of right knee 16 mg IX QWEEK 07/08/2023 Active documented as of this encounter (statuses as of 01/05/2024) Active Problems Problem Noted Date Diagnosed Date [...] pulmonary embolism 12/20/2011 Anticoagulation management encounter 12/14/2011 oysterman current use of anticoagulant therapy 0 12/14/2011 DYSLIPIDEMIA, GOAL LDL BELOW 100 08/29/2009 Overview: Per Lipid Taxonomy. COMMON MIGRAINE WITHOUT MENTION OF INTRACTABLE M IGRAINE 01/01/2003 GENERALIZED ANXIETY DIS 12/19/2001 TEMPOROMANDIBULAR JOINT DISORDERS, UNSPECIFIED Mitral valve disorder Gastroesophageal reflux disease without esophagi tis Other allergic rhinitis Overview: ICD-10 update of inactive term Mitral valve prolapse documented as of this encounter (statuses as of 01/05/2024) Resolved Problems Problem Noted Date Diagnosed Date [...] as of this encounter (statuses as of 01/05/2024) Immunizations Name Administration Dates Next Due COVID-19 [...] Sign Reading Time Taken Comments Blood Pressure 148/78 01/05/2024 12:30 PM EDT Pulse 62 01/05/2024 12:30 PM EDT Temperature 36.4 C (97.5 F) 01/05/2024 12:30 PM E DT Respiratory Rate - - Oxygen Saturation 97% 01/05/2024 12:30 PM EDT Inhaled Oxygen Concentration - - Weight 98.9 kg (218 lb) 01/05/2024 12:30 PM EDT Height - - Body Mass Index 40.53 12/10/2023 2:14 PM EDT documented in this encounter Progress Notes * Nubia Perales, - 01/05/2024 12:43 PM EDT Subjective: Linette Trujillo is a 78 year old female. Chief Complaint Patient presents with Acute HPI: Linette Trujillo presents today for evaluation of possible medication reaction. She said about 2 weeks ago she developed a rash on her face, then about a week ago she developed trouble breathing and swallowing, and then dizziness a few days. Has also noticed more palpitations. She read her information packet on the Gemtesa and saw that this could be related to the medicine. She reached out yesterday to the urogynecology office who advised the ER for evaluation, but she did not go. She stopped taking the Gemtesa a few days ago. Symptoms are minimally better. She still feels dizzy, has shortness of breath, has the rash on her face. No new medications, foods, lotions, etc. No chest pain or heaviness. PMH: Patient Active Problem List Diagnosis Code GENERALIZED ANXIETY DIS F41.1 COMMON MIGRAINE WITHOUT MENTION OF INTRACTABLE MIGRAINE G43.009 TEMPOROMANDIBULAR JOINT DISORDERS, UNSPECIFIED M26.609 Mitral valve disorder I05.9 Gastroesophageal reflux disease without esophagitis K21.9 Other allergic rhinitis J30.89 Mitral valve prolapse I34.1 ADVANCE DIRECTIVE INFORMATION DYSLIPIDEMIA, GOAL LDL BELOW 100 E78.5 Anticoagulation management encounter Z51.81, Z79.01 oysterman current use of anticoagulant therapy Z79.01 Factor [...] first carpometacarpal joint of right hand M18.11 Yazidi or spiritual beliefs affecting medical care Z53.1 Hypertensive kidney disease with stage 3a chronic kidney disease I12.9, N18.31 Chronic kidney disease, stage 3a ([facility]) N18.31 Infiltrating ductal carcinoma of left breast ([facility]) C50.912 Laceration of left index finger without foreign body without damage to nail S61.211A Diastolic dysfunction I51.89 Obesity, morbid (more than 100 lbs over ideal weight or BMI > 40) ([facility]) E66.01 Current Outpatient Medications Medication Sig Dispense Refill [...] 1 Tablet by mouth in the morning. (Patient not taking: Reported on 01/05/2024) 90 Tablet 3 Wegovy 0.25 MG/0.5ML Subcutaneous Solution Auto-injector (Semaglutide-Weight Management) Inject 0.25 mg under the skin once a week. (Patient not taking: Reported on 01/05/2024) 2 mL 0 Current Facility-Administered Medications Medication Dose Route Frequency Provider Last Rate Last Admin Hylan (Synvisc) inj 16 mg 16 mg Intra-Articular Q Week Herve Valera PA-C 16 mg at 07/08/23 1239 Review of patient's allergies indicates: Allergen Reactions Exgest La [Ppa-Gg Cr] Other (Please comment) [...] [Terconazole] hives Terconazole Unknown Fluconazole Hives Objective: BP 148/78 | Pulse 62 | Temp 36.4 C (97.5 F) (Tympanic) | Wt 98.9 kg (218 lb) | SpO2 97% | BMI 40.53 kg/m | BSA 2.07 m General: alert, healthy, no distress, well nourished, and well developed Oropharynx: no exudate, no erythema, lips, buccal mucosa, and tongue normal, mucous membranes are moist, and no tongue swelling Neck: supple, no adenopathy, thyroid normal size, non-tender, without nodularity, no stridor Heart: regular rate & rhythm and no murmur Lungs: chest symmetric with normal AP diameter, no chest deformities noted, normal respiratory rateand rhythm, lungs clear to auscultation Neuro Exam: alert & oriented x 3 with fluent speech, no focal motor/sensory deficits, gait normal EKG shows occasional premature beats, no evidence of ischemia. ASSESSMENT/PLAN: Shortness of breath (Primary) - lung clear, no stridor or wheezing, good air movement. Normal work of breathing, no chest pain and EKG with no evidence of ischemia. - EKG; Future; Expected date: 01/05/2024 Dizziness - occ premature beats on EKG but no enough to cause dizziness. BP a little high, so that could be contributing. - EKG; Future; Expected date: 01/05/2024 Rash and nonspecific skin eruption - maculopapular rash across the cheeks only. Adverse effect of drug, initial encounter - I see no signs of anaphylaxis on exam today. She has already stopped the medication and I have added it to her allergy list. Advised benadryl as needed over the next few days. She expressed understanding. Follow Up: Return if symptoms worsen or fail to improve. Nubia Perales DO documented in this encounter Nursing Notes * Faye Bro LPN - 01/05/2024 12:29 PM EDT Allergic to Gemtesa? Rash, trouble breathing, trouble swallowing, very dizzy 11/15 started with allergic reaction per pt. Per PCP note 12/12- Gemtesa was working? Reported no side effects at that time. States she had a rash on her face and must have forgot to tell PCP. She states that over the weekend the dizziness got very bad. She also had trouble swallowing food. She came home & she read through the side effects of Gemtesa & states she has every side effect of it. documented in this encounter Plan of Treatment Upcoming Encounters Date Type Department Care Team (Late st Contact Info) Description 01/06/2024 3:00 PM EDT Office Visit Interventional Pain Center, [facility] [address] [place] [address] Fabian Bhagat DO [address] [place] [phone] 01/07/2024 12:00 PM EDT Office Visit Sleep Disorders Ctr [facility] [address] [place] [address] [phone] Yara Beck CRNP [address] [place] [address] 01/10/2024 11:00 AM EDT Anticoagulation Pharmacy, [address] [place] [address] [place] [address] 01/13/2024 11:00 AM EDT Office Visit [address] [place] [address] Herve Valera PA-C [address] [place] [address] 01/19/2024 8:30 AM EDT Laboratory Laboratory [address] [place] [phone] [place], Lab [address] [place] [address] 01/20/2024 11:00 AM EDT Office Visit [facility] [place] [address] Herve Valera PA-C [address] [place] [address] 01/27/2024 10:30 AM EDT Office Visit [address] [place] [address] Herve Valera PA-C [address] [place] [address] 01/27/2024 2:30 PM EDT Office Visit Cardiology [address] [place] [address] Daylin Diaz PA-C [address] [place] [address] [place] [address] 06/14/2024 1:40 PM EDT Office Visit Family Medicine [address] [place] [phone] Danika Chairez PA-C [address] [place] [address] [place] [address] 07/03/2024 11:40 AM EDT Office Visit Nutrition & Weight Management, [facility] [address] [place] [address] Tami Garrett PA-C [address] [place] [address] 08/07/2024 1:00 PM EST Laboratory Laboratory [address] [place] [phone] [place], [address] [place] [address] 08/14/2024 2:00 PM EST Office Visit Hematology/Oncology [facility] [address] [place] [phone] Jeanette Arellano MD [address] [place] [address] 08/23/2024 2:55 PM EST Office Visit Urogynecology [facility] [address] [place] [address] Bay Ferreira MD [address] [place] [address] Nurse Zach Hernandez [address] [place] [address] 12/19/2024 1:40 PM EDT Office Visit Family Medicine [address] [place] [phone] Yoav Kong MD [address] [place] [address] [place] [address] Scheduled Orders Name Type Priority Associated Diagnoses Orde r Schedule EKG EKG Routine Shortness of breath Dizziness Expected: 01/05/2024 (Approximate), Expires: 02/03/2025 Scheduled Procedures Name Priority Associated Diagnoses Date/Ti me COLONOSCOPY FLEXIBLE PROXIMAL DIAGNOSTIC Recall Colon cancer screening Health Maintenance Due Date Last Done Comments Depression Screening 03/28/2022 03/28/2021 DTaP,Tdap,and Td Vaccines (2 - Td or Tdap) 06/14/2022 06/14/2012, 09/27/2005 GFR 12/09/2023 06/10/2023, 09/21, 07/03/2022, Additional history exists Albumin/Creatinine Ratio 12/12/2023 023, 12/16/2021, 11/11/2021, Additional history exists CKD HGB USE SMARTSET 35341 06/10/202406/10, 06/10/2023, 10/16/2022, Additional history exists CKD PHOS USE SMARTSET 31307 06/10/202405/22, 06/23/2022, 07/21/2021, Additional history exists TSH [...] as of this encounter Visit Diagnoses Diagnosis Shortness of breath- Primary Dizziness Dizziness and giddiness Rash and nonspecific skin eruption Rash and other nonspecific skin eruption Adverse effect of drug, initial encounter documented in this encounter Advance Directives Documents on File Type Date Recorded Patient Local Delivery Driver Expl anation Advance Directives and Karrie g Will 05/20/2016 ADVANCE DIRECTIVE Power of Arboreal Scientist 05/20/2016 POWER OF A TTORNEY Latest Code Status on File Code Status Date Activated Date Inactivated Comments Full Code 08/14/2008 10:37 AM 08/14/2008 10:38 AM Care Teams Burner Tender Relationship Specialty Start Date End Date Yoav Kong MD [address] [place] [address] [place] [address] PCP - General Family Medicine 04/09/14 documented as of this encounter
--- OUTSIDE RECORDS SUMMARY | 2024-06-16 04:20 | External Medical Summary | Summary of Care ---
Author Name Unknown Organization [facility] Address [address] [place] [address] Phone [phone] Care Team Providers Care Junior Network Administrator Name Role Phone Yoav Kogn MD Primary Care Provide r Reason for Visit * Reason Onset Date Comments FYI 01/04/2024 Encounter Details Date Type Department Care Team (Late st Contact Info) Description 01/04/2024 Telephone Family Medicine [address] [phone] Yoav Kong MD [address] [place] [address] [place] [address] FY Allergies Active Allergy Reactions Criticality Noted Date [...] of pulmonary embolism,Factor V Leiden (HCC),Anticoagulation management encounter,rodent exterminator current use of anticoagulant therapy,Venous thrombosis [...] kidney disease 07/29/2020 Overview: Per CKD protocol Temple or spiritual beliefs affecting medical care 05/25/2019 [...] pulmonary embolism 12/20/2011 Anticoagulation management encounter 12/14/2011 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 I only had appt for tomorrow and she wanted one of those appt instead of going to ER. She said if she got worse she would go to ER. If you can get her in to today instead please call her. documented in this encounter Plan of Treatment Upcoming Encounters Date Type Department Care Team (Late st Contact Info) Description 01/06/2024 3:00 PM EDT Office Visit Interventional Pain Center, [facility] [address] [place] [address] Fabian Bhagat DO [address] [place] [phone] 01/07/2024 12:00 PM EDT Office Visit Sleep Disorders Ctr [facility] [address] [place] [phone] Yara Beck CRNP [address] [place] [address] 01/10/2024 11:00 AM EDT Anticoagulation Pharmacy, [address] [place] [address] [place] [address] 01/13/2024 11:00 AM EDT Office Visit Orthopaedics [facility] [address] [place] [address] Herve Valera PA-C [address] [place] [address] [place] [address] 01/19/2024 8:30 AM EDT Laboratory Laboratory [address] [place] [phone] [address] [place] [address] 01/20/2024 11:00 AM EDT Office Visit Orthopaedics [facility] 132 [facility] [place] [address] Herve Valera PA-C [address] [place] [address] 01/27/2024 10:30 AM EDT [facility] 132 [facility] [place] [address] Herve Valera PA-C [address] [place] [address] 01/27/2024 2:30 PM EDT Office Visit Cardiology [address] [place] [address] Daylin Diaz PA-C 132 [facility] [place] [address] 06/14/2024 1:40 PM EDT Office Visit Family Medicine [address] [place] [phone] Danika Chairez PA-C [address] [place] [address] [place] [address] 07/03/2024 11:40 AM EDT Office Visit Nutrition & Weight Management, [facility] 132 [facility] [place] [address] Tami Garrett PA-C [address] [place] [address] 08/07/2024 1:00 PM EST Laboratory Laboratory [address] [place] [phone] [place] [address] 08/14/2024 2:00 PM EST Office Visit Hematology/Oncology [facility] [address] [place] [phone] Jeanette Arellano MD [address] [place] [address] 08/23/2024 2:55 PM EST Office Visit Urogynecology Nico Hernandez [address] [place] [address] Bay Ferreira MD [address] [place] [address] Nurse Zach Hernandez [address] [place] [address] 12/19/2024 1:40 PM EDT Office Visit Family Medicine [address] [place] [phone] Yoav Kong MD [address] [place] [address] [place] [address] Scheduled Procedures Name Priority Associated Diagnoses Date/Ti me COLONOSCOPY FLEXIBLE PROXIMAL DIAGNOSTIC Recall Colon cancer screening Health Maintenance Due Date Last Done Comments Depression Screening 03/28/2022 03/28/2021 DTaP,Tdap,and Td Vaccines (2 - Td or Tdap) 06/14/2022 06/14/2012, 09/27/2005 GFR 12/09/2023 06/10/2023, 09/21, 07/03/2022, Additional history exists Albumin/Creatinine Ratio 12/12/2023 023, 12/16/2021, 11/11/2021, Additional history exists CKD HGB USE SMARTSET 23735 06/10/202406/10, 06/10/2023, 10/16/2022, Additional history exists CKD PHOS USE SMARTSET 14477 06/10/202405/22, 06/23/2022, 07/21/2021, Additional history exists TSH [...] Documents on File Type Date Recorded Patient Wood Car Builder Expl anation Advance Directives and Karrie g Will 05/20/2016 ADVANCE DIRECTIVE Power of Chief Procurement Officer 05/20/2016 POWER OF A TTORNEY Latest Code Status on File Code Status Date Activated Date Inactivated Comments Full Code 08/14/2008 10:37 AM 08/14/2008 10:38 AM Care Teams Junior Network Administrator Relationship Specialty Start Date End Date Yoav Kong MD [address] [place] [address] [place] [address] PCP - General Family Medicine 04/09/14 documented as of this encounter
--- OUTSIDE RECORDS SUMMARY | 2024-06-16 04:21 | External Medical Summary | Summary of Care ---
Author Name Unknown Organization [facility] Address [address] [place] [address] Phone [phone] Care Team Providers Care Steam Box Tender Name Role Phone Yoav Kong MD Primary Care Provide r Encounter Details Date Type Department Care Team (Late st Contact Info) Description 12/20/2023 Orders Only PATIENT PORTAL DO NOT DELETE THIS DEPT USED BY [place] [id number] Allergies Active Allergy Reactions Criticality Noted Date [...] as of this encounter (statuses as of 12/20/2023) Medications Medication Sig Dispensed Refills Start Date [...] of pulmonary embolism,Factor V Leiden (HCC),Anticoagulation management encounter,long term care pharmacist current use of anticoagulant therapy,Venous thrombosis TAKE [...] EVERY DAY 90 Tablet 2 4 Active Hospital, Clinic, or Other Facility Administered Medication Ordered Dose Route Frequency Start Date End Date Status Hylan (Synvisc) inj 16 mgIndications:Primary osteoarthritis of right knee 16 mg IX QWEEK 07/08/2023 Active documented as of this encounter (statuses as of 12/20/2023) Active Problems Problem Noted Date Diagnosed Date [...] pulmonary embolism 12/20/2011 Anticoagulation management encounter 12/14/2011 long term care pharmacist current use of anticoagulant therapy 0 12/14/2011 DYSLIPIDEMIA, GOAL LDL BELOW 100 08/29/2009 Overview: Per Lipid Taxonomy. COMMON MIGRAINE WITHOUT MENTION OF INTRACTABLE M IGRAINE 01/01/2003 GENERALIZED ANXIETY DIS 12/19/2001 TEMPOROMANDIBULAR JOINT DISORDERS, UNSPECIFIED Mitral valve disorder Gastroesophageal reflux disease without esophagi tis Other allergic rhinitis Overview: ICD-10 update of inactive term Mitral valve prolapse documented as of this encounter (statuses as of 12/20/2023) Resolved Problems Problem Noted Date Diagnosed Date [...] as of this encounter (statuses as of 12/20/2023) Immunizations Name Administration Dates Next Due COVID-19 [...] Care Team (Late st Contact Info) Description 12/20/2023 11:40 AM EDT Anticoagulation Pharmacy, [address] [place] [address] [place] [address] 12/24/2023 10:40 AM EDT Office Visit Nutrition & Weight Management, [facility] [address] [place] [address] Tami Garrett PA-C [address] [place] [address] 01/07/2024 12:00 PM EDT Office Visit Sleep Disorders Ctr [facility] [place] [phone] Yara Beck CRNP [address] [place] [address] 01/13/2024 11:00 AM EDT Office Visit [facility] [address] [facility] [place] [address] Herve Valera PA-C [address] [place] [address] 01/20/2024 11:00 AM EDT [facility] [place] [address] Herve Valera PA-C [address] [place] [address] 01/27/2024 10:30 AM EDT Office Visit [facility] [address] [facility] [place] [address] Herve Valera PA-C [address] [place] [address] 01/27/2024 2:30 PM EDT Office Visit Cardiology [address] [place] [address] Daylin Diaz PA-C [address] [place] [address] 06/14/2024 1:40 PM EDT Office Visit Family Medicine [address] [place] [phone] Danika Chairez PA-C [address] [place] [address] [place] [address] 08/07/2024 1:00 PM EST Laboratory Laboratory [address] [place] [phone] [place] [address] 08/14/2024 2:00 PM EST Office Visit Hematology/Oncology [facility] [address] [place] [phone] Jeanette Arellano MD [address] [place] [address] 08/23/2024 2:55 PM EST Office Visit Urogynecology Nico Hernandez [address] [place] [address] Bay Ferreira MD [address] [place] [address] Nurse Zach Hernandez [address] [place] [address] 12/19/2024 1:40 PM EDT Office Visit Family Medicine [address] [place] [phone] Yoav Kong MD [address] [place] [address] [place] [address] Scheduled Procedures Name Priority Associated Diagnoses Date/Ti me COLONOSCOPY FLEXIBLE PROXIMAL DIAGNOSTIC Recall Colon cancer screening Health Maintenance Due Date Last Done Comments Depression Screening 03/28/2022 03/28/2021 DTaP,Tdap,and Td Vaccines (2 - Td or Tdap) 06/14/2022 06/14/2012, 09/27/2005 GFR 12/09/2023 06/10/2023, 09/21, 07/03/2022, Additional history exists Albumin/Creatinine Ratio 12/12/2023 023, 12/16/2021, 11/11/2021, Additional history exists CKD HGB USE SMARTSET 59721 06/10/202406/10, 06/10/2023, 10/16/2022, Additional history exists CKD PHOS USE SMARTSET 43135 06/10/202405/22, 06/23/2022, 07/21/2021, Additional history exists TSH [...] Documents on File Type Date Recorded Patient Meter Attendant Expl anation Advance Directives and [place] g Will 05/20/2016 ADVANCE DIRECTIVE Power of Jet Pilot 05/20/2016 POWER OF A TTORNEY Latest Code Status on File Code Status Date Activated Date Inactivated Comments Full Code 08/14/2008 10:37 AM 08/14/2008 10:38 AM Care Teams Steam Box Tender Relationship Specialty Start Date End Date Yoav Kong MD [address] [place] [address] [place] [address] PCP - General Family Medicine 04/09/14 documented as of this encounter
--- OUTSIDE RECORDS SUMMARY | 2024-06-16 04:21 | External Medical Summary ---
Author Name Unknown Address Unknown Organization : Laboratory Report Ordering Provider Test Date Status PIERO RIVERA 12/20/2023 11:39:13 Final Therapeutic ranges for non-o perative patients:
Prophylaxsis/treatment of DVT: (Range:2.0-3.0)
Treatment of pulmonary embolism:(Range:2.0-3.0)
Prevention of systemic embolism from:
-tissue heart valves
-acute myocardial infarction
-valvular heart disease
-atrial fibrillation
(Range: 2.0-3.0)
Mechanical prosthetic valves: (Range: 2.5-3.5) Observation Date Value Abnormality Reference (Units ) Status INR in Capillary blood by Coagulation assay 12/20/2023 11:39:13 2.0 (INR) Final Performing Location
--- OUTSIDE RECORDS SUMMARY | 2024-06-16 04:21 | External Medical Summary | Summary of Care ---
Author Name Unknown Organization [facility] Address [address] [place] [address] Phone [phone] Care Team Providers Care Site Safety Coordinator Name Role Phone Yoav oKng MD Primary Care Provide r Reason for Visit * Reason Comments Dosage Adjustment In Person (Anticoag Cl inic) Encounter Details Date Type Department Care Team (Latest Contact Info) Description 12/20/2023 11:40 AM EDT Anticoagulation Pharmacy, [address] [place] [phone] [place] [phone] History of pulmonary embolism*; Factor V Leiden (HCC); Anticoagulation management encounter; intermediate current use of anticoagulant therapy Allergies Active [...] of pulmonary embolism,Factor V Leiden (HCC),Anticoagulation management encounter,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,Venous thrombosis [...] pulmonary embolism 12/20/2011 Anticoagulation management encounter 12/14/2011 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 0 12/14/2011 [...] this encounter Progress Notes * Kamala Tijerina, [facility] - 12/20/2023 11:35 AM EDT Medication Therapy Disease Management - Anticoagulation Patient: Linette Palomo Ronnie | : 1945 Subjective Patient-Reported Symptoms: Patient Findings Negatives: Signs/symptoms of thrombosis, Signs/symptoms of bleeding, Change in health, Change in alcohol use, Change in activity, Upcoming invasive procedure, Missed doses, Extra doses, Change in medications, Change in diet/appetite, Bruising Objective Current Warfarin Dose As of 12/20/2023 Warfarin maintenance plan: 2 mg (2 mg x 1) every day INR Result As of 12/20/2023 INR goal: 2.0-3.0 INR used for dosin.0 (12/20/2023) Assessment & Plan Warfarin Plan As of 12/20/2023 Full warfarin instructions: 2 mg every day No change documented: Kamala Tijerina RPh Next INR check: 01/10/2024 Repeat PT/INR in 3 week(s) Weekly dose: not changed Additional Dosing Information: Description Eats a green smoothie each day Kamala Tijerina RPh Clinical Pharmacist 12/20/2023, 11:35 AM documented in this encounter Plan of Treatment Upcoming Encounters Date Type Department Care Team (Late st Contact Info) Description 12/24/2023 10:40 AM EDT Office Visit Nutrition & Weight Management, [facility] [address] [place] [phone] Tami Garrett PA-C [address] [place] [address] 01/07/2024 12:00 PM EDT Office Visit [facility] [address] [place] [phone] Yaar Beck CRNP [address] [place] [address] 01/10/2024 11:00 AM EDT Anticoagulation Pharmacy, [address] [place] [address] [place] [address] 01/13/2024 11:00 AM EDT Office Visit [facility] [address] [facility] [place] [address] Herve Valera PA-C [address] [place] [address] [place] [address] 01/20/2024 11:00 AM EDT Office Visit [facility] [address] [facility] [place] [address] Herve Valera PA-C [address] [place] [address] [place] [address] 01/27/2024 10:30 AM EDT Office Visit [address] [place] [address] Herve Valera PA-C [address] [place] [address] [place] [address] 01/27/2024 2:30 PM EDT Office Visit Cardiology [address] [place] [address] Daylin Diaz PA-C [address] [place] [address] [place] [address] 06/14/2024 1:40 PM EDT Office Visit Family Medicine [address] [place] [phone] Danika Chairez PA-C [address] [place] [address] [place] [address] 08/07/2024 1:00 PM EST Laboratory Laboratory [address] [place] [phone] [place] [address] 08/14/2024 2:00 PM EST Office Visit Hematology/Oncology Maria Fernanda [place] [address] [facility] [place] [phone] Jeanette Arellano MD [address] [facility] [place] [address] 08/23/2024 2:55 PM EST Office Visit Urogynecology Nico Hernandez [address] [facility] [place] [address] Bay Ferreira MD [address] [place] [address] Nurse Zach Hernandez [address] [place] [address] 12/19/2024 1:40 PM EDT Office Visit Family Medicine [address] [place] [phone] Yoav Kong MD [address] [place] [address] [place] [address] Scheduled Procedures Name Priority Associated Diagnoses Date/Ti me COLONOSCOPY FLEXIBLE PROXIMAL DIAGNOSTIC Recall Colon cancer screening Health Maintenance Due Date Last Done Comments Depression Screening 03/28/2022 03/28/2021 DTaP,Tdap,and Td Vaccines (2 - Td or Tdap) 06/14/2022 06/14/2012, 09/27/2005 GFR 12/09/2023 06/10/2023, 09/21, 07/03/2022, Additional history exists Albumin/Creatinine Ratio 12/12/2023 023, 12/16/2021, 11/11/2021, Additional history exists CKD HGB USE SMARTSET 94588 06/10/202406/10, 06/10/2023, 10/16/2022, Additional history exists CKD PHOS USE SMARTSET 00607 06/10/202405/22, 06/23/2022, 07/21/2021, Additional history exists TSH [...] Comments INR FINGERSTICK, POINT OF CARE STAT 12/20/2023 11:39 AM EDT History of pulmonary embolism Factor V Leiden (HCC) Anticoagulation management encounter 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 documented in this encounter Results * INR FINGERSTICK, POINT OF CARE (12/20/2023 11:39 AM EDT) Fingerstick INR 2.0 INR 11:45 AM EDT [facility]00 Blood 12/20/2023 11:3 9 AM EDT 12/20/2023 11:44 AM EDT Narrative [facility]-00 - 12/20/2023 11:45 AM EDT Therapeutic ranges for non-operative patients: Prophylaxsis/treatment of DVT: (Range:2.0-3.0) Treatment of pulmonary embolism:(Range:2.0-3.0) Prevention of systemic embolism from: -tissue heart valves -acute myocardial infarction -valvular heart disease -atrial fibrillation (Range: 2.0-3.0) Mechanical prosthetic valves: (Range: 2.5-3.5) Kamala Tijerina [facility] LAB POINT OF CARE TEST DOCKED DEVICE UNSOLICITED RESULTS [facility]-[address] [place] [address] [place] [address] documented in this encounter Visit Diagnoses Diagnosis History of pulmonary embolism- Primary Personal history of pulmonary embolism Factor V Leiden (HCC) Primary hypercoagulable state Anticoagulation management encounter Encounter for therapeutic drug monitoring 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
[2024-06-16] MEDS: LEVOTHYROXINE SODIUM 50 MCG TABLET PO SCH (06:29)
[2024-06-16 07:28] LABS: Basophils # (auto) 0.04 K/uL (0.00-0.20); Basophils % (auto) 0.5 %; Eosinophils # (auto) 0.21 K/uL (0.00-0.50); Eosinophils % (auto) 2.8 %; Hemoglobin 12.9 g/dl (12.0-16.0); Immature Granulocytes # (auto) 0.08 K/uL (0.01-0.20); Immature Granulocytes % (auto) 1.1 %; Lymphocytes # (auto) 2.17 K/uL (1.20-3.40); Lymphocytes % (auto) 28.8 %; Mean Corpuscular Hemoglobin 28.7 pg (25.0-34.0); Mean Corpuscular Hgb Conc 33.1 g/dL (32.0-36.0); Mean Corpuscular Volume 86.7 fL (80.0-100.0); Mean Platelet Volume 10.3 fL (9.4-12.4); Monocytes # (auto) 0.86 K/uL (0.11-0.59); Monocytes % (auto) 11.4 %; Neutrophils # (auto) 4.17 K/uL (1.40-6.50); Neutrophils % (auto) 55.4 %; Platelet Count 253 K/uL (130-400); RDW Coefficient of Variation 14.4 % (11.5-14.5); RDW Standard Deviation 45.9 fL (36.4-46.3); White Blood Count 7.53 K/ul (4.8-10.8)
[2024-06-16 07:31] VITALS: RESP 18
[2024-06-16 07:51] LABS: Calcium 8.5 mg/dl (8.6-10.3); Chol HDL Ratio 1.8 (0-5); Potassium 4.1 mmol/L (3.5-5.1)
[2024-06-16 08:01] LABS: INR 1.5 (0.9-1.1); Prothrombin Time 15.3 Seconds (9.0-12.0)
[2024-06-16 08:48] LABS: BUN Creatinine Ratio 17.8 (10-20); Creatinine Clr Calc Pharmacy 46.4 ml/min; Est GFR (African American) 56.8 ml/min
[2024-06-16 09:04] LABS: Estimated Average Glucose 128 mg/dl; Hemoglobin A1C 6.1 % (4.5-5.6)
[2024-06-16] MEDS: EZETIMIBE 10 MG TAB PO SCH (09:10)
[2024-06-16] MEDS: MONTELUKAST SODIUM 10 MG TABLET PO SCH (09:10)
[2024-06-16] MEDS: PANTOprazole 40 MG TAB PO SCH (09:10)
[2024-06-16] MEDS: LORATADINE 10 MG TAB PO SCH (09:10)
[2024-06-16] MEDS: CITALOPRAM 20 MG TAB PO SCH (09:11)
[2024-06-16] MEDS: FLUTICASONE PROPIONATE NA SPR 16 GM BTL SCH (09:11)
[2024-06-16] MEDS: ASPIRIN 81 MG ECTAB PO SCH (09:11)
[2024-06-16] MEDS: CYANOCOBALAMIN (B-12) 500 MCG TABLET PO SCH (12:08)
[2024-06-16] MEDS: MULTIVITAMIN TAB PO SCH (12:08)
[2024-06-16 12:27] VITALS: BP 166/76; TEMP 97.7; O2SAT 96
[2024-06-16] MEDS: MAGNESIUM OXIDE 400 MG TAB PO SCH (13:48)
[2024-06-16] MEDS: SPIRONOLACTONE 25 MG TAB PO SCH (13:48)
[2024-06-16] MEDS: TORSEMIDE 20 MG TAB PO SCH (13:48)
[2024-06-16] MEDS: POTASSIUM CHLORIDE 10 MEQ TABCR PO SCH (13:51)
[2024-06-16] MEDS ORDERED: STROKE PATIENT DISCHARGE STA (14:41)
[2024-06-16 15:28] VITALS: PULSE 77
--- NOTE | 2024-06-16 15:29 | Neurology Consultation ---
Date of Consultation June 16, 2024 Assessment & Plan (1) TIA (transient ischemic attack): Acute onset/short lasting vision loss and aphasia= suspect TIA Recommend continued stroke/TIA work up to include the following: Echocardiogram as part of complete stroke workup Continue frequent neurological assessments Obtain stat CT brain without contrast for any acute neurological decline Continue to monitor/control blood pressure & blood glucose Continue to monitor telemetry closely Continue to monitor renal and hepatic function, keep euvolemic Metabolic workup should include hgbA1c, fasting lipids Recommend continue full anticoagulation and ASA 81mg EC daily Recommend high dose statin therapy indefinitely if tolerated Ok from neurology perspective for VTE prophylaxis PT/OT/SLT to eval and treat Recommend eval for BIANCA and consider outpatient polysomnography Telehealth Consultation Telehealth Information Telehealth Information: I performed this visit using a real-time telehealth connection between my location and the patients location ([facility]). After connecting through interactive tele-video, patient was identified by name and date of and/or wristband check.Patient (or authorized healthcare senior human resources representative) was informed that this was a telemedicine visit and it was being conducted confidentially over secure lines. My office door was closed and no one else was present in the room with me.Patient (or authorized healthcare senior human resources representative) provided consent to proceed with the visit, expressed an understanding of privacy and security of the telemedicine visit, and gave permission to have a hospital senior human resources representative in the room in order to assist with the visit and to conduct portions of the visit, as needed. I informed the patient (or authorized healthcare senior human resources representative) that I reviewed their record and presented the opportunity for them to ask any questions regarding the visit today. The patient agreed to participate. History of Present Illness Reason for Consultation: Stroke/TIA Requesting Physician: Dr. Cortés Attending Physician: Desire Cortés MD History of Present Illness 79yo female with hx Factor V Leiden & PE presented after experiencing approx two hours of expressive aphasia symptoms. She reports she remembers all events leading up to hospitalization. Reports being on the phone with a friend and they told her she wasn't making any sense. She reports losing vision on right eye for some of the two hours of symptoms. She reports now complete resolution and no further recurrence. She denies loss of consciousness. States on vision in one eye was joseph or blacked out. SHe has notably been undergoing a change in her Coumadin/briding with warfarin and had a spinal injection for pain management. She has undergone stroke imaging including CT brain without contrast revealing no overt evidence of hemorrhage. CT angiographic studies of head and neck reveal no overt evidence of large vessel occlusion or significant/flow limiting stenosis. MRI brain is without evidence of acute restricted diffusion. I have performed televideo consultation. She is alert & oriented; able to answer all questions appropriately, name objects on televideo monitor, repeat phrases and perform complex/embedded commands without deficit. Neurological exam is non lateralizing/nonfocal in terms of motor strength and coordination. Allergies Allergy/AdvReac Type Severity Reaction Status Date / Time hydrocodone Allergy Severe HIVES Verified 06/15/24 21:05 Sulfa (Sulfonamide Allergy Severe HIVES/VOMIT Verified 06/15/24 21:05 Antibiotics) ING esomeprazole Allergy Intermediate HEADACHES Verified 06/15/24 21:05 nickel Allergy Intermediate Hives Verified 06/15/24 21:40 metronidazole Allergy Unknown unk Verified 06/15/24 21:05 moxifloxacin Allergy Unknown UNKNOWN Verified 06/15/24 21:05 nitrofurantoin Allergy Unknown HIVES Verified 06/15/24 21:05 phenylpropanolamine Allergy Unknown unknown Verified 06/15/24 21:05 terazosin Allergy Unknown HIVES Verified 06/15/24 21:05 scopolamine AdvReac Intermediate DEHYDRATION Verified 06/15/24 21:05 Kpdamrq-KDE-[id number] Reductase AdvReac Intermediate severe Verified 06/16/24 16:08 Inhibitor arthralgia, bursitis ciprofloxacin AdvReac Unknown Tendon Verified 06/15/24 21:05 Tears hydromorphone [From Dilaudid] AdvReac Vomiting Verified 06/15/24 21:05 EXGEST Allergy Intermediate PALPITATION Uncoded 06/15/24 21:05 S Home Medications Medication Instructions Recorded Confirmed Type Multivitamin 1 tab PO NOON ##0 03/05/08 06/15/24 History Montelukast (Singulair *) 20 mg PO BID ##0 12/09/11 06/15/24 History SPIRONOLACTONE (ALDACTONE) 25 mg PO QAM #0 tabs 11/23/13 06/15/24 History CYANOCOBALAMIN (VITAMIN B12) 1,000 mcg PO NOON ##0 06/05/15 06/15/24 History POLYETHYLENE GLYCOL-PROPYLENE 1 drp ophthalmic (eye) QID PRN 10/01/21 06/15/24 History (SYSTANE) lubricant #30 mL WARFARIN SODIUM 2 mg PO UD ##0 10/01/21 06/15/24 History citalopram 10 mg tablet (Celexa) 10 mg PO DAILY 10/01/21 06/15/24 History ezetimibe 10 mg tablet (Zetia) 10 mg PO DAILY 10/01/21 06/15/24 History fluticasone propionate 50 2 spray intranasal DAILY 10/01/21 06/15/24 History mcg/actuation nasal spray,suspension (Flonase Allergy Relief) latanoprost 0.005 % eye drops 1 drp ophthalmic (eye) HS 10/01/21 06/15/24 History loratadine 10 mg tablet (Allergy 10 mg PO DAILY 10/01/21 06/15/24 History Relief (loratadine)) magnesium 200 mg tablet 400 mg PO DAILY 03/20/22 06/15/24 History potassium chloride 10 mEq 10 meq PO DAILY 03/20/22 06/15/24 History tablet,extended release (Klor-Con) bwwxfqz-vsgultdgu-sovu tablet 1 tab PO DAILY 10/23/22 06/15/24 History cholecalciferol (vitamin D3) 125 125 mcg PO DAILY 10/23/22 06/15/24 History mcg (5,000 unit) capsule fluocinolone acetonide oil 0.01 % 4 drp otic (ear) BID PRN wax 10/23/22 06/15/24 History ear drops levothyroxine 50 mcg tablet 50 mcg PO DAILY 10/23/22 06/15/24 History (Levoxyl) pantoprazole 20 mg tablet,delayed 40 mg PO DAILY 10/23/22 06/15/24 History release pramipexole 0.5 mg tablet 0.5 mg PO HS 10/23/22 06/15/24 History torsemide 20 mg tablet 20 mg PO DAILY 10/23/22 06/15/24 History aspirin 81 mg tablet,delayed 81 mg PO QAM #30 tabs 06/16/24 Rx release enoxaparin 100 mg/mL subcutaneous 100 mg subcut Q12H #20 syringes 06/16/24 Rx syringe (Lovenox) Patient History Medical History Vaginitis Chronic TMJ (temporomandibular joint disorder) Obstructive sleep apnea Wears CPAP HS CKD (chronic kidney disease), stage III Generalized anxiety disorder GERD (gastroesophageal reflux disease) Migraine "has not had one in years" Syncope 1 episode - none since Pyelonephritis Resolved Hypertension Hypercholesteremia Mitral valve prolapse Factor V Leiden Hypothyroid Pulmonary embolism (11/2011) Surgical History History of hysterectomy (1978) History of ankle surgery 2014 + 2016 (repaired tendon tears) History of cataract removal with insertion of prosthetic lens History of lumpectomy of left breast (08/20/21) Dr. 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 Roxi Platt - invasive ductal carcinoma, ER/IN+, HER2- Family History Father , Passed age 78 of Black Lung (smoker) No problems noted. Mother , Passed age 90 of natural causes No problems noted. Sister , Passed age 90 natural causes No problems noted. Brother , Passed age 62 of heart complications No problems noted. Brother , Passed late 80's of Aneurysm Mesothelioma, Onset Age: 70 Brother , Passed in 80's of Colon Cancer No problems noted. Brother Pancreatic cancer, Onset Age: 84 Currently undergoing treatment in [place] Daughter No problems noted. Daughter No problems noted. 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 Oriented to person, place, and time. Fluency naming repetition and comprehension appear grossly intact. Affect remains appropriate. CN testing: I: Denies changes in ability to smell II:Reports no changes in visual acuity III/IV/: No evidence of gaze preference, hippus, nystagmus or roving eye movements V: Facial sensation reportedly grossly intact to light touch bilaterally VII: Facial movements appear without evidence of asymmetry VIII: Hearing appears grossly intact to loud voice bilaterally IX/X: Palate appears to elevate symmetrically XI: Shoulder shrug appears symmetric/ grossly intact bilaterally XII: Tongue protrudes midline without evidence of biting Motor exam: Strength appears grossly intact/symmetric in all extremities Sensory: Sensation is reportedly grossly intact throughout Coordination: Finger to nose and heel to granados were intact. No apparent evidence of dysmetria or dysdiadochokinesia Reflexes: Deferred Gait: Deferred Results & Data Vital Signs (Past 12 Hours) Vital Signs Temp Pulse Pulse Resp BP Pulse Ox O2 Del Method 06/16/24 12:23 36.5 C 18 166/76 H 96 Room Air 06/16/24 07:31 67 06/16/24 07:24 36.7 C 71 18 113/64 95 Room Air Laboratory Results Abnormal lab results 06/15/24 06/15/24 06/15/24 Range/Units 18:28 18:33 18:40 [place] # (Auto) 0.93 H (0.11-0.59) K/uL PT 14.5 H (9.0-12.0) Seconds INR 1.4 H (0.9-1.1) POC Chloride 99 L (101-112) mmol/L POC Anion Gap 15.0 L (16-25) mmol/L POC BUN 20 H (7-18) mg/dl Glucose 124 H (70-99(Fasting)) mg/dl POC Glucose 124 H (70-99) mg/dl POC Glucose (other) 125 H (70-99) mg/dl Hemoglobin A1c (4.5-5.6) % Calcium (8.6-10.3) mg/dl Triglycerides (0-150) mg/dl VLDL Cholesterol, Calc (0-30) mg/dl Ur Specific [place] (1.000-1.030) Urine Blood (Negative) Ur Leukocyte Esterase (Negative) Urine WBC (Auto) (0-5) /hpf Urine RBC (Auto) (0-2) /hpf 06/16/24 06/16/24 Range/Units 00:50 06:27 [place] # (Auto) 0.86 H (0.11-0.59) K/uL PT 15.3 H (9.0-12.0) Seconds INR 1.5 H (0.9-1.1) POC Chloride (101-112) mmol/L POC Anion Gap (16-25) mmol/L POC BUN (7-18) mg/dl Glucose (70-99(Fasting)) mg/dl POC Glucose (70-99) mg/dl POC Glucose (other) (70-99) mg/dl Hemoglobin A1c 6.1 H (4.5-5.6) % Calcium 8.5 L (8.6-10.3) mg/dl Triglycerides 155 H (0-150) mg/dl VLDL Cholesterol, Calc 31 H (0-30) mg/dl Ur Specific [place] 1.038 H (1.000-1.030) Urine Blood Trace H (Negative) Ur Leukocyte Esterase 2+ H (Negative) Urine WBC (Auto) >50 H (0-5) /hpf Urine RBC (Auto) 3-5 H (0-2) /hpf Diagnostic Findings Chest X-Ray 06/15/24 18:18 SINGLE VIEW CHEST CLINICAL HISTORY: Neurological deficit. Stroke like symptoms. FINDINGS: An AP, portable, upright chest radiograph is compared to study dated 11/23/2013. The examination is degraded by portable technique and patient rotation. The heart is enlarged. The pulmonary vasculature is noncongested. Chronic interstitial thickening is similar to previous. There is bibasilar scarring/atelectasis. No airspace consolidation or large pleural effusion is identified. No pneumothorax is seen. The skeletal structures are osteopenic. The bony thorax is grossly intact. IMPRESSION: No acute cardiopulmonary abnormality is identified. ACT 112: Negative or not required by law. Electronically signed by: Homero Beckham M.D. 06/15/2024 10:[address] 06/15/24 18:[address] OF THE BRAIN; CT ANGIOGRAM OF THE BRAIN; CT ANGIOGRAM OF THE NECK CLINICAL HISTORY: Strokelike symptoms. Neurological deficit. COMPARISON STUDY: CT of the brain dated 11/24/2023. TECHNIQUE: Unenhanced axial CT scan of the brain is performed. Subsequently, following the IV administration of 119 of Optiray 320, CT angiogram of the head and neck was performed from the aortic arch to the vertex. Images are reviewed in the axial, sagittal, and coronal planes. 3-D MIPS images are created and assessed. IV contrast was administered without complication. All measurements were calculated based on NASCET criteria. A dose lowering technique was utilized adhering to the principles of ALARA. CT DOSE: 1137.85 mGy.cm FINDINGS: Brain parenchyma: There is age-related involutional change noting mild subcortical and periventricular microangiopathic disease. There is no hemorrhage, mass effect, or evidence of acute territorial ischemia by CT criteria. There is no evidence of enhancing mass lesion on the angiogram phase images. The ventricles, sulci, and cisterns are prominent secondary to involutional change. Saldivar-white matter differentiation is preserved. No extra- axial fluid collection is seen. Thoracic aorta: There is mild atherosclerotic calcification of the thoracic aorta. Visualized portions of the thoracic aorta are normal in caliber. The aortic arch demonstrates standard 3-vessel anatomy. Right carotid arterial system: The right common carotid artery is widely patent, as are the right internal and external carotid arteries. Minimal calcified plaque is seen in the carotid bulb. Left carotid arterial system: The left common carotid artery is widely patent, as are the left internal and external carotid arteries. Minimal calcified plaque is seen in the carotid bulb. Vertebral arteries: Widely patent bilaterally and codominant. Subclavian arteries: Widely patent bilaterally. Intracranial vasculature: There is atherosclerotic calcification of the cavernous carotid arteries. The internal carotid arteries are patent at the skull base, as are the anterior and middle cerebral arteries bilaterally. The vertebrobasilar system and posterior cerebral arteries are widely patent. The vertebral arteries are codominant. There is no aneurysm, high-grade stenosis, or focal vessel cut off seen throughout the intracranial circulation. Jugular veins: Patent bilaterally. Dural sinuses: Patent. Lung apices: Partially visualized upper lobe lung parenchyma appears clear. Soft tissues: The visualized pharyngeal soft tissues are normal in appearance noting angiographic phase technique. The oropharyngeal airway appears widely patent. The salivary and thyroid glands are normal in appearance. No cervical lymphadenopathy is seen. Skeletal structures: The skeletal structures are osteopenic. The calvarium ap pears intact. The cervical spine is maintained noting multilevel spondylosis. Orbits: The bony orbits are intact. Orbital contents are normal as visualized noting bilateral ocular lens implants. Sinuses and mastoids: There is trace mucosal thickening within the maxillary antra. The remaining paranasal sinuses are clear. The mastoid air cells are well pneumatized. Cerumen is noted in the right external auditory canal. IMPRESSION: 1. There is no hemorrhage, mass effect, or evidence of acute territorial ischemia by CT criteria. 2. Unremarkable CT angiogram of the brain. 3. Unremarkable CT angiogram of the neck. ACT 112: Negative or not required by law. Electronically signed by: Homero Beckham M.D. 06/15/2024 6:45 PM Head CTA 06/15/24 18:[address] OF THE BRAIN; CT ANGIOGRAM OF THE BRAIN; CT ANGIOGRAM OF THE NECK CLINICAL HISTORY: Strokelike symptoms. Neurological deficit. COMPARISON STUDY: CT of the brain dated 11/24/2023. TECHNIQUE: Unenhanced axial CT scan of the brain is performed. Subsequently, following the IV administration of 119 of Optiray 320, CT angiogram of the head and neck was performed from the aortic arch to the vertex. Images are reviewed in the axial, sagittal, and coronal planes. 3-D MIPS images are created and assessed. IV contrast was administered without complication. All measurements were calculated based on NASCET criteria. A dose lowering technique was utilized adhering to the principles of ALARA. CT DOSE: 1137.85 mGy.cm FINDINGS: Brain parenchyma: There is age-related involutional change noting mild subcortical and periventricular microangiopathic disease. There is no hemorrhage, mass effect, or evidence of acute territorial ischemia by CT criteria. There is no evidence of enhancing mass lesion on the angiogram phase images. The ventricles, sulci, and cisterns are prominent secondary to involutional change. Saldivar-white matter differentiation is preserved. No extra- axial fluid collection is seen. Thoracic aorta: There is mild atherosclerotic calcification of the thoracic aorta. Visualized portions of the thoracic aorta are normal in caliber. The aortic arch demonstrates standard 3-vessel anatomy. Right carotid arterial system: The right common carotid artery is widely patent, as are the right internal and external carotid arteries. Minimal calcified plaque is seen in the carotid bulb. Left carotid arterial system: The left common carotid artery is widely patent, as are the left internal and external carotid arteries. Minimal calcified plaque is seen in the carotid bulb. Vertebral arteries: Widely patent bilaterally and codominant. Subclavian arteries: Widely patent bilaterally. Intracranial vasculature: There is atherosclerotic calcification of the cavernous carotid arteries. The internal carotid arteries are patent at the skull base, as are the anterior and middle cerebral arteries bilaterally. The vertebrobasilar system and posterior cerebral arteries are widely patent. The vertebral arteries are codominant. There is no aneurysm, high-grade stenosis, or focal vessel cut off seen throughout the intracranial circulation. Jugular veins: Patent bilaterally. Dural sinuses: Patent. Lung apices: Partially visualized upper lobe lung parenchyma appears clear. Soft tissues: The visualized pharyngeal soft tissues are normal in appearance noting angiographic phase technique. The oropharyngeal airway appears widely patent. The salivary and thyroid glands are normal in appearance. No cervical lymphadenopathy is seen. Skeletal structures: The skeletal structures are osteopenic. The calvarium appears intact. The cervical spine is maintained noting multilevel spondylosis. Orbits: The bony orbits are intact. Orbital contents are normal as visualized noting bilateral ocular lens implants. Sinuses and mastoids: There is trace mucosal thickening within the maxillary antra. The remaining paranasal sinuses are clear. The mastoid air cells are well pneumatized. Cerumen is noted in the right external auditory canal. IMPRESSION: 1. There is no hemorrhage, mass effect, or evidence of acute territorial ischemia by CT criteria. 2. Unremarkable CT angiogram of the brain. 3. Unremarkable CT angiogram of the neck. ACT 112: Negative or not required by law. Electronically signed by: Homero Beckham M.D. 06/15/2024 6:45 PM Neck CTA 06/15/24 18:[address] OF THE BRAIN; CT ANGIOGRAM OF THE BRAIN; CT ANGIOGRAM OF THE NECK CLINICAL HISTORY: Strokelike symptoms. Neurological deficit. COMPARISON STUDY: CT of the brain dated 11/24/2023. TECHNIQUE: Unenhanced axial CT scan of the brain is performed. Subsequently, following the IV administration of 119 of Optiray 320, CT angiogram of the head and neck was performed from the aortic arch to the vertex. Images are reviewed in the axial, sagittal, and coronal planes. 3-D MIPS images are created and assessed. IV contrast was administered without complication. All measurements were calculated based on NASCET criteria. A dose lowering technique was utilized adhering to the principles of ALARA. CT DOSE: 1137.85 mGy.cm FINDINGS: Brain parenchyma: There is age-related involutional change noting mild subcortical and periventricular microangiopathic disease. There is no hemorrhage, mass effect, or evidence of acute territorial ischemia by CT criteria. There is no evidence of enhancing mass lesion on the angiogram phase images. The ventricles, sulci, and cisterns are prominent secondary to involutional change. Saldivar-white matter differentiation is preserved. No extra- axial fluid collection is seen. Thoracic aorta: There is mild atherosclerotic calcification of the thoracic aorta. Visualized portions of the thoracic aorta are normal in caliber. The aortic arch demonstrates standard 3-vessel anatomy. Right carotid arterial system: The right common carotid artery is widely patent, as are the right internal and external carotid arteries. Minimal calcified plaque is seen in the carotid bulb. Left carotid arterial system: The left common carotid artery is widely patent, as are the left internal and external carotid arteries. Minimal calcified plaque is seen in the carotid bulb. Vertebral arteries: Widely patent bilaterally and codominant. Subclavian arteries: Widely patent bilaterally. Intracranial vasculature: There is atherosclerotic calcification of the cavernous carotid arteries. The internal carotid arteries are patent at the skull base, as are the anterior and middle cerebral arteries bilaterally. The vertebrobasilar system and posterior cerebral arteries are widely patent. The vertebral arteries are codominant. There is no aneurysm, high-grade stenosis, or focal vessel cut off seen throughout the intracranial circulation. Jugular veins: Patent bilaterally. Dural sinuses: Patent. Lung apices: Partially visualized upper lobe lung parenchyma appears clear. Soft tissues: The visualized pharyngeal soft tissues are normal in appearance noting angiographic phase technique. The oropharyngeal airway appears widely patent. The salivary and thyroid glands are normal in appearance. No cervical lymphadenopathy is seen. Skeletal structures: The skeletal structures are osteopenic. The calvarium appears intact. The cervical spine is maintained noting multilevel spondylosis. Orbits: The bony orbits are intact. Orbital contents are normal as visualized noting bilateral ocular lens implants. Sinuses and mastoids: There is trace mucosal thickening within the maxillary an tra. The remaining paranasal sinuses are clear. The mastoid air cells are well pneumatized. Cerumen is noted in the right external auditory canal. IMPRESSION: 1. There is no hemorrhage, mass effect, or evidence of acute territorial ischemia by CT criteria. 2. Unremarkable CT angiogram of the brain. 3. Unremarkable CT angiogram of the neck. ACT 112: Negative or not required by law. Electronically signed by: Homero Beckham M.D. 06/15/2024 6:45 PM Brain MRI 06/16/24 00:07 Exam(s): MRI HEAD Without Contrast EXAM: MR Head Without Intravenous Contrast CLINICAL HISTORY: TIA. TECHNIQUE: Magnetic resonance images of the head/brain without intravenous contrast in multiple planes. COMPARISON: CT head 06/15/2024 FINDINGS: Brain: No acute infarct. No intracranial hemorrhage, mass-effect or midline shift. Mild periventricular white matter T2/flair signal abnormalities are most consistent with chronic microangiopathy. Ventricles: Unremarkable. No ventriculomegaly. Bones/joints: Unremarkable. No acute fracture. Sinuses: There is mild mucosal thickening of the ethmoid and maxillary sinuses. The remaining visualized paranasal sinuses are clear. No acute sinusitis. Mastoid air cells: Unremarkable as visualized. No mastoid effusion. Orbits: Unremarkable as visualized. IMPRESSION: No acute findings in the head/brain. Electronically signed by: Carola Ramirez MD 06/16/24 01:47 AM Medications Administered Home Medications Medication Instructions Recorded Confirmed Last Taken Multivitamin 1 tab PO NOON ##0 03/05/08 06/15/24 Unknown Montelukast (Singulair *) 20 mg PO BID ##0 12/09/11 06/15/24 Unknown SPIRONOLACTONE (ALDACTONE) 25 mg PO QAM #0 tabs 11/23/13 06/15/24 Unknown CYANOCOBALAMIN (VITAMIN B12) 1,000 mcg PO NOON ##0 06/05/15 06/15/24 Unknown POLYETHYLENE GLYCOL-PROPYLENE 1 drp ophthalmic (eye) QID PRN 10/01/21 06/15/24 Unknown (SYSTANE) lubricant #30 mL WARFARIN SODIUM 2 mg PO UD ##0 10/01/21 06/15/24 06/15/24 citalopram 10 mg tablet (Celexa) 10 mg PO DAILY 10/01/21 06/15/24 Unknown ezetimibe 10 mg tablet (Zetia) 10 mg PO DAILY 10/01/21 06/15/24 Unknown fluticasone propionate 50 2 spray intranasal DAILY 10/01/21 06/15/24 Unknown mcg/actuation nasal spray,suspension (Flonase Allergy Relief) latanoprost 0.005 % eye drops 1 drp ophthalmic (eye) HS 10/01/21 06/15/24 Unknown loratadine 10 mg tablet (Allergy 10 mg PO DAILY 10/01/21 06/15/24 Unknown Relief (loratadine)) magnesium 200 mg tablet 400 mg PO DAILY 03/20/22 06/15/24 Unknown potassium chloride 10 mEq 10 meq PO DAILY 03/20/22 06/15/24 Unknown tablet,extended release (Klor-Con) [id number]-uayjpobpn-lnhg tablet 1 tab PO DAILY 10/23/22 06/15/24 Unknown cholecalciferol (vitamin D3) 125 125 mcg PO DAILY 10/23/22 06/15/24 Unknown mcg (5,000 unit) capsule fluocinolone acetonide oil 0.01 % 4 drp otic (ear) BID PRN wax 10/23/22 06/15/24 Unknown ear drops levothyroxine 50 mcg tablet 50 mcg PO DAILY 10/23/22 06/15/24 Unknown (Levoxyl) pantoprazole 20 mg tablet,delayed 40 mg PO DAILY 10/23/22 06/15/24 Unknown release pramipexole 0.5 mg tablet 0.5 mg PO HS 10/23/22 06/15/24 Unknown torsemide 20 mg tablet 20 mg PO DAILY 10/23/22 06/15/24 Unknown aspirin 81 mg tablet,delayed 81 mg PO QAM #30 tabs 06/16/24 Unknown release enoxaparin 100 mg/mL subcutaneous 100 mg subcut Q12H #20 syringes 06/16/24 Unknown syringe (Lovenox) Active Medications Generic Name Dose Route Start Last Admin Trade Name Sean PRN Reason Stop Dose Admin Aspirin 81 mg 06/16/24 09:00 06/16/24 09:11 Aspirin 81 Mg Ectab PO 07/16/24 08:59 81 mg QAM ARCADIO Administration Citalopram Hydrobromide 10 mg 06/16/24 09:00 06/16/24 09:11 Citalopram 20 Mg Tab PO 07/16/24 08:59 10 mg DAILY ARCADIO Administration Cyanocobalamin 1,000 mcg 06/16/24 12:00 06/16/24 12:08 Cyanocobalamin (B-12) 500 Mcg Tablet PO 07/16/24 11:59 1,000 mcg DAILY@1200 ARCADIO Administration Ezetimibe 10 mg 06/16/24 09:00 06/16/24 09:10 Ezetimibe 10 Mg Tab PO 07/16/24 08:59 10 mg DAILY ARCADIO Administration Fluticasone Propionate 2 sprays 06/16/24 09:00 06/16/24 09:11 Fluticasone Propionate Na Spr 16 Gm Btl NA 07/16/24 08:59 2 sprays DAILY ARCADIO Administration Latanoprost 1 drops 06/15/24 23:41 06/15/24 23:52 Latanoprost 0.005% Op Soln 2.5 Ml Btl OP 07/15/24 23:40 Not Given HS ARCADIO Levothyroxine Sodium 50 mcg 06/16/24 06:30 06/16/24 06:29 Levothyroxine Sodium 50 Mcg Tablet PO 07/16/24 06:29 50 mcg DAILYBB ARCADIO Administration Loratadine 10 mg 06/16/24 09:00 06/16/24 09:10 Loratadine 10 Mg Tab PO 07/16/24 08:59 10 mg DAILY ARCADIO Administration Magnesium Oxide 400 mg 06/16/24 13:00 06/16/24 13:48 Magnesium Oxide 400 Mg Tab PO 07/16/24 12:59 400 mg DAILY ARCADIO Administration Montelukast Sodium 10 mg 06/16/24 09:00 06/16/24 09:10 Montelukast Sodium 10 Mg Tablet PO 07/16/24 08:59 10 mg DAILY ARCADIO Administration Multivitamins 1 tab 06/16/24 12:00 06/16/24 12:08 Multivitamin Tab PO 07/16/24 11:59 1 tab DAILY@1200 ARCADIO Administration Pantoprazole Sodium 40 mg 06/16/24 09:00 06/16/24 09:10 Pantoprazole 40 Mg Tab PO 07/16/24 08:59 40 mg DAILY ARCADIO Administration Potassium Chloride 10 meq 06/16/24 13:00 06/16/24 13:51 Potassium Chloride 10 Meq Tabcr PO 07/16/24 12:59 10 meq DAILY ARCADIO Administration Spironolactone 25 mg 06/16/24 13:00 06/16/24 13:48 Spironolactone 25 Mg Tab PO 07/16/24 12:59 25 mg QAM ARCADIO Administration Torsemide 20 mg 06/16/24 13:00 06/16/24 13:48 Torsemide 20 Mg Tab PO 07/16/24 12:59 20 mg DAILY ARCADIO Administration
[2024-06-16] MEDS: WARFARIN SOD 5 MG TAB PO STA (15:37)
[2024-06-16] MEDS ORDERED: WARFARIN SOD 5 MG TAB PO SCH (16:00)
--- NOTE | 2024-06-16 16:13 | Discharge Summary ---
Discharge Summary Date of Service June 16, 2024 Principal Dx & Hospital Course #1 = Principal Diagnosis (1) Stroke-like symptom: (2) Pulmonary embolism: (3) GERD (gastroesophageal reflux disease): (4) CKD (chronic kidney disease), stage III: Ms. Trujillo is an 79 year-old female with PMHx of history of breast cancer in 2020, factor V Leiden, pulmonary embolism, on chronic anticoagulant therapy, HTN, HLD, mitral valve prolapse, GERD, hypothyroidism, BIANCA, CKD stage III, chronic back pain status post recent interlaminar epidural steroid injection 06/09/2024 who was admitted for concern of TIA. Patient recent on lovenox bridge after holding coumadin for an epidural injection. Patient stopped lovenox on 06/13, but notably patient's INR subtherapuetic on admission to 1.1. Concern that given history of factor V leiden, patient may have experienced TIA given increased viscosity/clot. Symptoms resolbved during course of admission. Patient eating well and ambulating at baseline. Neurology evaluated and recommended statin in addition to lovenox until INR 2-3. Patient has adverse reactions to statins amrked by "diffuse bursitis" #TIA #Subtherapeutic INR #Factor V Leiden - Admit to tele for observation for dysarthria, left vision deficits - Stroke order set completed, MRI/CTA negative for acute stroke - Initially dysarthria, garbled speech, Left eye visual deficit, no indication for thrombolytic with sx completely resolved at this time -Resume home medications -Encouraged continued lovenox until INR therapeutic Resume home coumadin dosing - Repatha inj 140 mg given at home today (q14), continue zetia -Patient intolerant of statins Recommend ASA daily - check lipid panel and a1c with am labs #Hx of PE/DVT - chronic anticoagulation with coumadin - Follow daily INR, 1.4, will require bridge with lovenox INR check this coming wednesday Lovenox until told INR therapeutic #HTN resume home medication as prescibed #HLD - Repatha 140 mg [id number], zetia 10 mg daily statin intolerant #Hypothyroidism - Cont levothyroxine - TSH 2.01 on 04/17/24 per [facility] outpatient #Chronic lower back pain - s/p intralaminal steroid injection on 06/09/[address] Carlton at [facility] outpt OR, pain management. Pt notes pain at injection site rated 6/10 today. Monitor. - PT/OT: no acute needs C#KD stage III - Cr/BUN appear to be at baseline #Remote Hx of Breast Cancer - stable, in remission - original dx 2020 #Prediabetes #Morbid obesity BMI 40.3 Encouraged lifestyle changes Notes For Next Care Provider Medication Changes From Visit Lovenox 100mg BID until INR therapeutic ASA 81mg daily Admission HPI Per Admitting Provider This is a 89-year-old female with PMHx of history of breast cancer in 2020, factor V Leiden, pulmonary embolism, on chronic anticoagulant therapy, HTN, HLD, mitral valve prolapse, GERD, hypothyroidism, BIANCA, CKD stage III, chronic back pain status post recent interlaminar epidural steroid injection 06/09/2024 who presents to the hospital with difficulty speaking, had trouble articulating words around 4 PM this afternoon. Her family , and two daughters are present at bedside. Patient states that she was in her normal state of health at 3 PM when her went to take a nap. She proceeded to make a batch of apple crisp and walk on cooking dinner, at the time referred in the oven, sat down went to sleep for approximately 20 minutes and then woke up to the time or going off. At that point a friend of hers called her on the phone and she was unable to articulate/participate in conversation. Her daughter came home at 5:10 PM and noticed that she was unable to participate in conversation, garbled words and left eye discrepancy darkened/blurred vision. She also complains of a posterior headache at this time despite Tylenol administration in the ER. Patient denies any focal strength deficits, no numbness or tingling, no bowel or bladder incontinence. Dysarthria and visual disturbances are now resolved at the time of my visit in the ER with the patient. Due to the intralaminar steroid injection, she had held Coumadin x 5 days prior to this. Afterwards she required Lovenox bridging with her Coumadin finished last Lovenox injection on Wednesday night. Patient reports that she does have 3 vials of Lovenox left however she states that her instructions reported to finish on Wednesday evening. Today her INR is subtherapeutic at 1.4. She does have some residual bruising on her abdomen status post Lovenox injections. She reports having some residual pain from intralaminar steroid injection at the injection site, but states that her overall chronic back pain seems to have been improved from the injection. Other injection she took today was Repatha 140 mg (q. 14 days). At baseline, ptasa walks and participates in ADLs with any difficulty at home. She took her medication today including Coumadin. CTA of the head and neck are negative for any acute findings. Admission Exam Per Admitting Provider General: awake, alert, no apparent distress, obese white female Head: Normocephalic, atraumatic ENT: PERRL, EOMI, no pharyngeal exudate, mucous membranes moist Chest: Clear to auscultation, on room air, no adventitious breath sounds Cardiac: Regular rate and rhythm, + GAIL, no JVD, normal peripheral pulses, good capillary refill Abdominal: + ecchymotic lesions from lovenox inj, NABS x 4 quadrants, soft, n ondistended, nontender to palpation, no rebound or guarding Extremities: Normal inspection, no peripheral edema or erythema, calfs nontender to palpation Psych: Normal mood and affect Neuro: AAO x 3, strength intact bilaterally and rated 5/5, no motor deficits, speech is clear, negative pronator drift, participates in rapid alternating movements, heel to granados testing, finger to nose, no peripheral sensory deficits Discharge Exam Constitutional WD/WN, vitals as above Respiratory normal respiratory effort, lungs clear to auscultation Cardiovascular RRR, no murmur, no edema Gastrointestinal (Abdomen) normal bowel sounds, soft, nontender, no hepatosplenomegaly Neurologic PERRL, EOMI, accommodation nl, no face palsy, no dysarthria Updated Medication List Medication Instructions Recorded Confirmed Type Multivitamin 1 tab PO NOON ##0 03/05/08 06/15/24 History Montelukast (Singulair *) 20 mg PO BID ##0 12/09/11 06/15/24 History SPIRONOLACTONE (ALDACTONE) 25 mg PO QAM #0 tabs 11/23/13 06/15/24 History CYANOCOBALAMIN (VITAMIN B12) 1,000 mcg PO NOON ##0 06/05/15 06/15/24 History POLYETHYLENE GLYCOL-PROPYLENE 1 drp ophthalmic (eye) QID PRN 10/01/21 06/15/24 History (SYSTANE) lubricant #30 mL WARFARIN SODIUM 2 mg PO UD ##0 10/01/21 06/15/24 History citalopram 10 mg tablet (Celexa) 10 mg PO DAILY 10/01/21 06/15/24 History ezetimibe 10 mg tablet (Zetia) 10 mg PO DAILY 10/01/21 06/15/24 History fluticasone propionate 50 2 spray intranasal DAILY 10/01/21 06/15/24 History mcg/actuation nasal spray,suspension (Flonase Allergy Relief) latanoprost 0.005 % eye drops 1 drp ophthalmic (eye) HS 10/01/21 06/15/24 History loratadine 10 mg tablet (Allergy 10 mg PO DAILY 10/01/21 06/15/24 History Relief (loratadine)) magnesium 200 mg tablet 400 mg PO DAILY 03/20/22 06/15/24 History potassium chloride 10 mEq 10 meq PO DAILY 03/20/22 06/15/24 History tablet,extended release (Klor-Con) owsyfxv-wdzmuhuxd-rqep tablet 1 tab PO DAILY 10/23/22 06/15/24 History cholecalciferol (vitamin D3) 125 125 mcg PO DAILY 10/23/22 06/15/24 History mcg (5,000 unit) capsule fluocinolone acetonide oil 0.01 % 4 drp otic (ear) BID PRN wax 10/23/22 06/15/24 History ear drops levothyroxine 50 mcg tablet 50 mcg PO DAILY 10/23/22 06/15/24 History (Levoxyl) pantoprazole 20 mg tablet,delayed 40 mg PO DAILY 10/23/22 06/15/24 History release pramipexole 0.5 mg tablet 0.5 mg PO HS 10/23/22 06/15/24 History torsemide 20 mg tablet 20 mg PO DAILY 10/23/22 06/15/24 History aspirin 81 mg tablet,delayed 81 mg PO QAM #30 tabs 06/16/24 Rx release enoxaparin 100 mg/mL subcutaneous 100 mg subcut Q12H #20 syringes 06/16/24 Rx syringe (Lovenox) Hospital Stay Data Consultations 06/15/24 20:01 ED Decision to Admit Stat 06/15/24 22:30 Consult Neurology Routine Diagnostic Imagining Performed 06/15/24 18:18 CT angio head w con Stat CT angio neck with con Stat CT head/brain wo con Stat 06/16/24 00:07 MR brain wo con Urgent Pending Results Patient Have Any Pending Studies at Discharge: No Discharge Instructions Given to Patient (Per Discharging Provider) You were admitted for concern of transient ischemic attack given your INR being subtherapeutic. Your MRI did not reveal permanent damage or stroke. You must continue Lovenox bridging with warfarin until your INR is therapeutic. You received two days of 5mg in the hospital. You will continue your routine 2mg dosing as previously prescribed. Neurology would like you to also start a daily baby aspirin (81mg) daily as well as rosuvastatin 20mg daily. Please make a follow up appointment with neurology. Please continue lovenox two times a day until your INR is greater than 2.0. Total Time Total Time Spent Total Time Spent (In Minutes): 45
[2024-06-16] MEDS ORDERED: PRAMIPEXOLE DIHYDROCHLO 0.5 MG TAB PO SCH (21:00)
--- NOTE | 2024-06-16 22:34 | Electrocardiogram Report ---
Test Reason : Blood Pressure : */* mmHG Vent. Rate : 63 BPM Atrial Rate : 63 BPM P-R Int : 200 ms QRS Dur : 84 ms QT Int : 400 ms P-R-T Axes : -12 -9 -32 degrees QTcB Int : 409 ms Normal sinus rhythm Inferior infarct , age undetermined Abnormal ECG When compared with ECG of 05-Jun-2015 10:33, Inferior infarct is now Present Confirmed by Dewayne Mcdaniel ([id number]) on 06/16/2024 10:33:49 PM Referred By: REFERRED SELF Confirmed By: Dewayne Mcdaniel
[2024-06-17] MEDS ORDERED: CALCIUM CARBONATE 1250MG TAB PO SCH (09:00)
== END 2024-06-16 16:21 | disposition home or self-care (01) ==
LOC: 2N 18:10 → ED 18:10 → 2N 23:44